=== PATIENT | male | born 1970 | race Caucasian/White ===

== ENCOUNTER 2020-05-17 14:25 | Outpatient (CLI) | payer OTHER, SELFPAY ==
--- NOTE | ~2020-05-17 | US_ITS ---
EXAMINATION: US soft tissue head and neck DATE: 05/17/2020 14:59 INDICATION: Dysphagia. TECHNIQUE: Multiple grayscale and Doppler ultrasound images of the left and right neck were obtained. COMPARISON: None FINDINGS: Right cemented the region there is a 2.4 x 3.7 x 3.4 cm mixed solid and cystic mass with central line ar hyperechoic region cyst with a central hilum within an enlarged necrotic lymph node. There is a se cond smaller hypoechoic right submandibular lymph node which measures 2.0 x 1.2 x 2.1 cm. There are f ew prominent but still normal-sized lymph nodes in the high right jugular chain and in the contralate ral left submandibular and high jugular chain. The largest left-sided lymph node measures 1.9 x 1.0 x 0.7 cm. IMPRESSION: 1. Bilateral cervical lymphadenopathy with largest partially necrotic appearing lymph node in the rig ht submandibular region measuring 2.7 x 3.4 x 2.4 cm. This could be related to either infection or me tastatic disease such as a squamous cell carcinoma. Would recommend contrast-enhanced neck CT and ult rasound-guided core needle biopsy of the largest right submandibular lymph node for further evaluatio n. Reviewed, dictated and finalized at location A. IMPRESSION: 1. Bilateral cervical lymphadenopathy with largest partially necrotic appearing lymph node in the right submandibular region measuring 2.7 x 3.4 x 2.4 cm. Thi s could be related to either infection or metastatic disease such as a squamous cell carcinoma. Would recommend contrast-enhanced neck CT and ultrasound-guide d core needle biopsy of the largest right submandibular lymph node for further evaluation.
[2020-05-17 14:41] LABS: Basophils Absolute Auto 0.06 K/mm3 (0.00-0.10); Basophils Percent Auto 0.8 % (0.0-1.0); Eosinophils Percent Auto 1.3 % (1.0-6.0); Hematocrit 43.9 % (40.0-54.0); Hemoglobin 14.4 g/dL (14.0-18.0); Immature Granulocyte Absolute 0.02 K/mm3 (0.00-0.00); Immature Granulocyte Percent A 0.3 % (0.0-0.0); Lymphocytes Absolute Auto 1.89 K/mm3 (1.10-4.50); Lymphocytes Percent Auto 24.5 % (18.0-42.0); Mean Corpuscular HGB Conc 32.8 g/dL (32.0-36.0); Mean Corpuscular Hemoglobin 31.8 pg (27.0-31.0); Mean Corpuscular Volume 96.9 fL (78.0-102.0); Mean Platelet Volume 8.8 fl (8.7-11.0); Monocytes Absolute Auto 0.55 K/mm3 (0.10-0.90); Monocytes Percent Auto 7.1 % (2.0-11.0); Neutrophils Absolute Auto 5.1 K/mm3 (1.7-7.2); Platelet Count Result 261 K/mm3 (150-420); Red Blood Count 4.53 M/mm3 (4.70-6.10); Red Cell Distribution Width 12.9 % (11.6-14.4); White Blood Count 7.7 K/mm3 (4.8-10.8)
[2020-05-17 15:55] LABS: Alanine Aminotransferase 44 U/L (16-63); Albumin Level 3.8 g/dL (3.4-5.0); Alkaline Phosphatase 75 U/L (46-116); Anion Gap 4 mmol/L (8-16); Aspartate Amino Transferase 25 U/L (15-37); Bilirubin,Total 0.4 mg/dL (0.00-1.00); Blood Urea Nitrogen 14 mg/dL (7-18); Calcium 8.7 mg/dL (8.5-10.1); Carbon Dioxide 31 mmol/L (21-32); Chloride 103 mmol/L (98-108); Estimated Glomerular Filt Rate > 60; Glucose 99 mg/dL (70-99); Osmolality Calculated 286 mOsm/kg (285-295); Potassium 4.4 mmol/L (3.5-5.1); Sodium 138 mmol/L (136-145); Total Protein 7.6 g/dL (6.4-8.2)
[2020-05-22 09:12] LABS: EBV Nuclear Ab Antibody <18.00 U/mL (<18.00); EBV Nuclear Ab Interpretation Recent; EBV Virus Capsid Ag IgM Ab <36.00 U/mL (<36.00)
== END 2020-05-17 14:26 | disposition home or self-care (01) ==
LOC: CHSLAB 14:29
PROVIDERS: PCP Nurse Practitioner Family; Visit Provider Nurse Practitioner Family
DX: R13.10 Dysphagia, unspecified (principal); R22.1 Localized swelling, mass and lump, neck
CPT/HCPCS: 36415; 76536; 80053; 85025; 86664; 86665

== ENCOUNTER 2020-05-22 09:05 | Outpatient (CLI) | payer OTHER, SELFPAY ==
--- NOTE | ~2020-05-22 | CT_ITS ---
EXAMINATION: CT soft tissue neck w con EXAM DATE: 05/22/2020 09:46 INDICATION: Dysphagia. Right-sided lump mass for one month. TECHNIQUE: Spiral CT of the neck was performed following intravenous injection of 75 mL Omnipaque 350 . Axial, coronal and sagittal images were reviewed. The dose-length product (DLP) for this examinat ion was 586.09 mGy-cm. The exposure was tailored according to patient size (auto mA exposure control ), and iterative reconstruction (ASIR) was used as additional dose reduction technique. There is no prior study for comparison. FINDINGS: The thyroid gland is unremarkable. The submandibular and parotid glands are symmetric. Complex cystic right-sided internal jugular chain mass, likely lymph node measuring 2.5 x 2.7 x 4.0 c m. This is pathologically enlarged and metastatic disease should be considered. Differential diagnosi s does include granulomatous process. No other cervical masses or enlarged lymph nodes are identified . The superior mediastinum is unremarkable. The airway is unremarkable. Parapharyngeal and pre-g lottic fat planes are preserved. The opacified vasculature is patent. The orbits are unremarkable . There is moderate right maxillary sinus mucoperiosteal thickening. There is right upper lobe gra nuloma. There is cervical spondylosis. IMPRESSION: 1. Pathologically enlarged cystic right level IIA lymph node; ENT consult recommended. 2. Moderate right maxillary sinus mucoperiosteal thickening. Reviewed, dictated and finalized at location B. IMPRESSION: 1. Pathologically enlarged cystic right level IIA lymph node; ENT consult recom mended. 2. Moderate right maxillary sinus mucoperiosteal thickening.
== END 2020-05-22 09:06 | disposition home or self-care (01) ==
LOC: CHSIMG 09:07
PROVIDERS: PCP Nurse Practitioner Family; Visit Provider Nurse Practitioner Family
DX: R22.1 Localized swelling, mass and lump, neck (principal); R13.10 Dysphagia, unspecified
CPT/HCPCS: 70491; Q9965

== ENCOUNTER 2020-05-24 13:28 | Outpatient (CLI) | payer OTHER, SELFPAY ==
--- NOTE | ~2020-05-24 | US_ITS ---
US FNA w image guidance DATE: 05/24/2020 14:47 INDICATION: Right neck mass TECHNIQUE: The purpose of the procedure, technique and potential competitions including bleeding were discussed with the patient. The patient verbalized understanding and gave consent. Timeout procedure confirmed proper patient and procedure. An approximately 2.2 by 4 cm complex mass was localized by ultrasound at the right neck area. The skin over this area was prepared with sterile Betadine solution. 1% lidocaine local anesthetic wa s administered to the skin and underlying subcutaneous tissues. An 18-gauge biopsy needle was introduced into the mass using ultrasound guidance and a small tissue c ore specimens were obtained. The patient refused any further biopsy attempts. No apparent complication was noted. IMPRESSION: Ultrasound-guided biopsy of right neck complex mass Patient allowed only one needle pass; multiple small tissue fragments were obtained from the initial biopsy attempt and were forwarded in liquid fixative to the laboratory. Reviewed, dictated and finalized at Location A. Reviewed, dictated and finalized at location A. IMPRESSION: Ultrasound-guided biopsy of right neck complex mass Patient allowed only one needle pass; multiple small tissue fragments were obta ined from the initial biopsy attempt and were forwarded in liquid fixative to [facility] laboratory.
== END 2020-05-24 13:29 | disposition home or self-care (01) ==
LOC: CHSIMG 13:29
PROVIDERS: PCP Nurse Practitioner Family; Visit Provider Nurse Practitioner Family
DX: R22.1 Localized swelling, mass and lump, neck (principal)
CPT/HCPCS: 10005; 88305

== ENCOUNTER 2022-08-14 21:03 | Emergency (ER) | payer OTHER, SELFPAY ==
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
[2022-08-14 21:07] VITALS: BP 146/86; PULSE 107; RESP 20; TEMP 36.3; O2SAT 10
--- NOTE | 2022-08-14 21:33 | ECG_ITS ---
Measurements Intervals [place] Rate: 89 P: 32 MI: 149 QRS: -1 QRSD: 91 T: 19 QT: 370 QTc: 452 Interpretive Statements SINUS RHYTHM MODERATE VOLTAGE CRITERIA FOR LVH, CONSIDER NORMAL VARIANT [MEETS CRITERIA IN ONE OF: R(aVL), S(V1), R(V5), R(V5/V6)+S(V1)] NO PREVIOUS ECG AVAILABLE FOR COMPARISON Electronically Signed On 08-15-2022 20:06:41 MEDICAL INFORMATION SPECIALIST by Rose Rubio M.D.
[2022-08-14] MEDS: ACETAMINOPHEN 325 MG TABLET 650 MG PO (21:56)
[2022-08-14 22:04] LABS: Basophils Absolute Auto 0.06 K/mm3 (0.00-0.10); Eosinophils Absolute Auto 0.14 K/mm3 (0.02-0.50); Eosinophils Percent Auto 2.3 % (1.0-6.0); Hematocrit 41.8 % (40.0-54.0); Immature Granulocyte Absolute 0.02 K/mm3 (0.00-0.00); Immature Granulocyte Percent A 0.3 % (0.0-0.0); Lymphocytes Absolute Auto 1.69 K/mm3 (1.10-4.50); Lymphocytes Percent Auto 27.3 % (18.0-42.0); Mean Corpuscular HGB Conc 33.5 g/dL (32.0-36.0); Mean Corpuscular Hemoglobin 31.7 pg (27.0-31.0); Mean Corpuscular Volume 94.8 fL (78.0-102.0); Mean Platelet Volume 9.1 fl (8.7-11.0); Monocytes Absolute Auto 0.56 K/mm3 (0.10-0.90); Neutrophils Absolute Auto 3.7 K/mm3 (1.7-7.2); Neutrophils Percent Auto 60.1 % (50.0-70.0); Platelet Count Result 259 K/mm3 (150-420); Red Blood Count 4.41 M/mm3 (4.70-6.10); Red Cell Distribution Width 13.4 % (11.6-14.4); White Blood Count 6.2 K/mm3 (4.8-10.8)
[2022-08-14 22:22] LABS: Alanine Aminotransferase 56 U/L (16-63); Albumin Level 3.6 g/dL (3.4-5.0); Alkaline Phosphatase 85 U/L (46-116); Anion Gap 6 mmol/L (8-16); Aspartate Amino Transferase 29 U/L (15-37); Bilirubin,Total 0.4 mg/dL (0.00-1.00); Blood Urea Nitrogen 19 mg/dL (7-18); Calcium 8.5 mg/dL (8.5-10.1); Carbon Dioxide 27 mmol/L (21-32); Chloride 105 mmol/L (98-108); Estimated CRCL calculation 86 ml/min; Estimated Glomerular Filt Rate > 60; Glucose 101 mg/dL (70-99); Osmolality Calculated 288 mOsm/kg (285-295); Potassium 3.9 mmol/L (3.5-5.1); Sodium 138 mmol/L (136-145); Total Protein 7.6 g/dL (6.4-8.2); Troponin I 7.2 ng/L (0.00-60.4)
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
== END 2022-08-14 22:44 | disposition left against medical advice (07) ==
PROVIDERS: Emergency Provider Emergency Medicine; PCP Family Medicine
DX: T14.90XA Injury, unspecified, initial encounter (principal); V49.9XXA Car occupant (driver) (passenger) injured in unspecified traffic accident, initial encounter; Z53.29 Procedure and treatment not carried out because of patient's decision for other reasons
CPT/HCPCS: 36415; 71045; 73110; 73610; 80053; 84484; 85025; 93005; 99199; 99284; A9270

== ENCOUNTER 2023-10-08 10:37 | Outpatient (CLI) | payer OTHER, SELFPAY ==
--- NOTE | ~2023-10-08 | XR_ITS ---
Right foot Technique: AP, oblique, and lateral views were obtained. Clinical History: Injury COMPARISON: 08/14/2022 Findings: No acute fracture or dislocation is seen. Prior ORIF of the calcaneus and distal tibia note d. Joint spaces are preserved without erosive or degenerative change. Soft tissues are unremarkable. Impression: No acute abnormality. Prior ORIF of the calcaneus and distal tibia. Reviewed, dictated and finalized at location M. SPACE MECHANIC Impression: No acute abnormality. Prior ORIF of the calcaneus and distal tibia.
== END 2023-10-08 10:38 | disposition home or self-care (01) ==
LOC: CHSIMG 10:38
PROVIDERS: PCP Nurse Practitioner Family; Visit Provider Nurse Practitioner Family
DX: S99.911A Unspecified injury of right ankle, initial encounter (principal); T84.498A Other mechanical complication of other internal orthopedic devices, implants and grafts, initial encounter
CPT/HCPCS: 73630

== ENCOUNTER 2024-01-29 09:15 | Outpatient (CLI) | payer MEDICARE, MEDICAID, SELFPAY ==
--- NOTE | ~2024-01-29 | US_ITS ---
EXAMINATION: US_VDOPREFBI_US DATE: 01/29/2024 10:51 INDICATION: Venous insufficiency, chronic, peripheral. TECHNIQUE: Grayscale ultrasound images without and with compression and Doppler ultrasound images of the bilateral lower extremity veins were obtained. COMPARISON: None. FINDINGS: The visualized portions of right common femoral vein, profunda (deep) femoral vein, femoral vein, pop liteal vein, peroneal veins, and posterior tibial veins are patent. Right greater saphenous vein abran ures 5 mm in the upper thigh, 3 mm in the lower thigh, and 2 mm in the the calf. No reflux. Right sma ll saphenous vein measures 2 mm in the upper calf and 2 mm in the lower calf. No reflux. The visualized portions of left common femoral vein, profunda femoral vein, femoral vein, popliteal v ein, peroneal veins, and posterior tibial veins are patent. Left greater saphenous vein measures 6 mm in the upper thigh, 4 mm in the lower thigh, and 3 mm in the calf. No reflux. Last small saphenous v ein measures 2 mm the upper calf and 2 mm in the lower calf. No reflux. IMPRESSION: 1. No deep venous thrombosis. 2. No reflux. Reviewed, dictated and finalized at location A.
== END 2024-01-29 09:16 | disposition home or self-care (01) ==
LOC: ANHIMG 09:18
PROVIDERS: PCP Nurse Practitioner Family; Visit Provider Orthopaedic Surgery
DX: I87.2 Venous insufficiency (chronic) (peripheral) (principal); R60.0 Localized edema
CPT/HCPCS: 93970

== ENCOUNTER 2024-03-23 13:41 | Emergency (ER) | payer MEDICARE, MEDICAID, SELFPAY ==
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
[2024-03-23 13:41] VITALS: BP 139/85; PULSE 90; RESP 18; TEMP 36.8; O2SAT 98
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
[2024-03-23 15:00] VITALS: BP 136/80; PULSE 80; RESP 18; O2SAT 99
== END 2024-03-23 15:00 | disposition home or self-care (01) ==
PROVIDERS: Emergency Provider Emergency Medicine; PCP Family Medicine
DX: S80.11XA Contusion of right lower leg, initial encounter (principal); V86.56XA Driver of dirt bike or motor/cross bike injured in nontraffic accident, initial encounter
CPT/HCPCS: 73590; 99283

== ENCOUNTER 2024-09-04 02:32 | Emergency (ER) | payer MEDICARE, MEDICAID, SELFPAY ==
[2024-09-04] VITALS (13 sets, daily range): BP systolic 124–145; BP diastolic 82–116; PULSE 90–103; RESP 14–22; TEMP 36.1; O2SAT 94–97
--- NOTE | ~2024-09-04 | XR_ITS ---
XR chest 1V portable DATE: 09/04/2024 02:42 INDICATION: Sternal chest pain TECHNIQUE: Portable upright AP chest 09/04/2024 at 0241 hours COMPARISON: 08/14/2022 portable AP chest at 2154 hours FINDINGS: Heart size is within normal range. There is mild pulmonary vascular congestion and redistri bution. There are mild infiltrates in the mid and to a greater extent lower lung zones, left greater than rig ht. Definitive diagnosis with infiltrates includes pulmonary edema, pneumonia, aspiration pneumonitis . Slight pleural effusions may be present. No pneumothorax. IMPRESSION: Pulmonary vascular congestion and mild bilateral mid and primarily lower lung infiltrates ; differential diagnosis for the infiltrates includes pulmonary edema, pneumonia, less likely aspirat ion pneumonitis Reviewed, dictated and finalized at location [facility]. NESS UNIT CONTROLLER IMPRESSION: Pulmonary vascular congestion and mild bilateral mid and primarily lower lung infiltrates; differential diagnosis for the infiltrates includes pul monary edema, pneumonia, less likely aspiration pneumonitis
--- NOTE | ~2024-09-04 | CT_ITS ---
EXAMINATION: CTA chest abdomen pelvis DATE: 09/04/2024 03:34 INDICATION: Epigastric pain. Sternal chest pain. Rule out dissection. TECHNIQUE: Computed tomographic angiography (CTA) of the head was performed without and with 100 mL O mnipaque-350 intravenous contrast. Exam dose: 1017.99 mGy-cm total exam DLP. Volume-rendered and m aximum intensity projection 3D reconstructions of the intracranial arteries were created by the techn ologist on a separate workstation. COMPARISON: None. FINDINGS: No thoracic aortic or abdominal aortic aneurysm or dissection. No evidence of pulmonary embolism. There are calcified hilar mediastinal lymph nodes calcified pulmonary granulomas bilaterally, consist ent with old granulomatous disease. Heart size is within normal range. Coronary artery calcifications. No pericardial or pleural effusion . There is mild atelectasis primarily at the lung bases. No pulmonary consolidation or suspicious pulmo nary mass lesion is evident. Hepatic steatosis. No hepatic, splenic, pancreatic, adrenal or renal space occupying mass lesion is d etected. The gallbladder is contracted. No gallbladder wall thickening or pericholecystic fluid or fat strandi ng or bile duct or pancreatic duct dilatation is noted. No urinary tract calculus or hydroureteronephrosis. The urinary bladder is unremarkable. There is mild prostate calcification, mild prostate enlargement. The urinary bladder is unremarkable. Normal appendix. Minimal sigmoid colon diverticulosis; no CT evidence of diverticulitis. No bowel obstruction, bowel wall thickening, pneumatosis or intraperitoneal free air is detected. Small fat-containing umbilical hernia. Prominent degenerative disease in the lower cervical spine. There is degenerative spurring of the tho racic spine. There is severe degenerative disc disease at L5-S1 with associated mild retrolisthesis. No suspicious osteolytic or osteoblastic lesions are noted. Hardware including intramedullary nail and interlocking proximal through screw of proximal right femu r. IMPRESSION: No evidence of thoracic or abdominal aortic aneurysm or dissection Normal appendix Minimal left colon diverticulosis Reviewed, dictated and finalized at [facility]. Reviewed, dictated and finalized at location [facility]. ONNEL DIRECTOR
--- NOTE | 2024-09-04 02:33 | ECG_ITS ---
Test Date: 2024-09-04 02:34:27 Measurements Intervals [place] Rate: 105 P: 44 MS: 153 QRS: 5 QRSD: 78 T: 60 QT: 328 QTc: 435 Interpretive Statements SINUS TACHYCARDIA NONSPECIFIC ST AND T-WAVE ABNORMALITY No previous ECG available for comparison Electronically Signed On 09-07-2024 17:39:54 MANAGER HEMATOLOGY by Keith Hicks M.D.
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
[2024-09-04] MEDS: MAG HYDROX/ALUMINUM HYD/SIMETH 30 ML, PHENobarb/HYOSCY/ATROPINE/SCOP 32.4 MG, LIDOCAINE... PO (02:42)
[2024-09-04 02:45] LABS: Basophils Absolute Auto 0.06 K/mm3 (0.00-0.10); Basophils Percent Auto 0.5 % (0.0-1.0); Eosinophils Absolute Auto 0.11 K/mm3 (0.02-0.50); Eosinophils Percent Auto 0.9 % (1.0-6.0); Hematocrit 46.8 % (40.0-54.0); Immature Granulocyte Absolute 0.04 K/mm3 (0.00-0.00); Immature Granulocyte Percent A 0.3 % (0.0-0.0); Lymphocytes Absolute Auto 2.29 K/mm3 (1.10-4.50); Lymphocytes Percent Auto 19.5 % (18.0-42.0); Mean Corpuscular HGB Conc 32.1 g/dL (32-36); Mean Corpuscular Hemoglobin 30.1 pg (27.0-31.0); Mean Platelet Volume 8.9 fl (8.7-11.0); Monocytes Absolute Auto 0.91 K/mm3 (0.10-0.90); Monocytes Percent Auto 7.7 % (2.0-11.0); Neutrophils Absolute Auto 8.36 K/mm3 (1.70-7.20); Neutrophils Percent Auto 71.1 % (50.0-70.0); Platelet Count Result 274 K/mm3 (150-420); Red Blood Count 4.98 M/mm3 (4.70-6.10); Red Cell Distribution Width 13.5 % (11.6-14.4); White Blood Count 11.8 K/mm3 (4.8-10.8)
[2024-09-04] MEDS: MORPHINE SULFATE (*CRX) 4 MG/ML INJ IV PUSH (03:00)
[2024-09-04 03:07] LABS: Alanine Aminotransferase 58 U/L (16-63); Albumin Level 3.7 g/dL (3.4-5.0); Alkaline Phosphatase 116 U/L (46-116); Anion Gap 4 mmol/L (4-12); Aspartate Amino Transferase 47 U/L (15-37); Bilirubin,Total 0.6 mg/dL (0.00-1.00); Blood Urea Nitrogen 13 mg/dL (7-18); Calcium 9.1 mg/dL (8.5-10.1); Carbon Dioxide 31 mmol/L (21-32); Chloride 102 mmol/L (98-108); Estimated CRCL calculation 87 ml/min; Estimated Glomerular Filt Rate > 60; Glucose 103 mg/dL (70-99); Lipase 54 U/L (16-77); Osmolality Calculated 284 mOsm/kg (285-295); Sodium 137 mmol/L (136-145); Total Protein 8.4 g/dL (6.4-8.2); Troponin I 5.3 ng/L (0.00-60.4)
[2024-09-04 03:08] LABS: NT Pro B Type Natriuretic Pept < 11 pg/mL (0-125)
[2024-09-04] MEDS: HYDROmorphone HCL INJ (*CRX) 2 MG/ML VIAL 0.5 MG IV PUSH (03:55)
[2024-09-04 05:22] LABS: Potassium 5.7 mmol/L (3.5-5.1)
--- OUTSIDE RECORDS SUMMARY | 2024-09-11 03:18 | XMS_ITS | Encounter Summary ---
Author Organization [facility] Address [address] [place] [address]. [place], [place] [id number] [place] [id number] Care Team Providers Care Pharmaceutical Botanist Name Role Phone None, Provider Primary Care Provider Unavaila ble Encounter Details Date Type Department Care Team (Latest Contact Info) Description 03/28/2020 Travel Social History Tobacco Use Types Packs/Day Years Used Date Smoking Tobacco: Never Smokeless Tobacco: Former Alcohol Use Standard Drinks/Week Comments Yes 0 (1 standard drink = 0.6 oz pur e alcohol) occasionally Sex and Gender Information Value Date Recorded Sex Assigned at Not on file Legal Sex Male 10:57 PM CDT Gender Identity Not on file Sexual Orientation Not on file COVID-19 Exposure Response Date Recorded In the last month, have you been in contact with someone who was confirmed or suspected to have Coronavirus / COVID-19? No / Unsure 03/28/2020 10:57 PM CDT documented as of this encounter Plan of Treatment Not on file documented as of this encounter Visit Diagnoses Not on filedocumented in this encounter Care Teams Pharmaceutical Botanist Relationship Specialty Start Date End Date None, Provider, PCP - General 03/28/20 documented as of this encounter
--- OUTSIDE RECORDS SUMMARY | 2024-09-11 03:18 | XMS_ITS | Clinical Summary ---
Author Organization [facility] Address [address] [place] [address]. [place], [place] [id number] [place] [id number] Care Team Providers Care Metal Hanging Supervisor Name Role Phone None, Provider MD Primary Care Provider Unavaila ble Allergies No known active allergies Medications No known medications Social History Tobacco Use Types Packs/Day Years Used Date Smoking Tobacco: Never Smokeless Tobacco: Former Alcohol Use Standard Drinks/Week Comments Yes 0 (1 standard drink = 0.6 oz pur e alcohol) occasionally Sex and Gender Information Value Date Recorded Sex Assigned at Not on file Legal Sex Male 10:57 PM CDT Gender Identity Not on file Sexual Orientation Not on file Last Filed Vital Signs Vital Sign Reading Time Taken Comments Blood Pressure 129/84 03/28/2020 11:03 PM CDT Pulse 98 03/28/2020 11:03 PM CDT Temperature 37.1 ??C (98.8 ??F) 03/28/2020 11:03 PM C DT Respiratory Rate 20 03/28/2020 11:03 PM CDT Oxygen Saturation 97% 03/28/2020 11:03 PM CDT Inhaled Oxygen Concentration - - Weight 83.9 kg (185 lb) 03/28/2020 11:03 PM CDT Height 177.8 cm (5' 10 ) 03/28/2020 11:03 PM CDT Body Mass Index 26.54 03/28/2020 11:03 PM CDT Plan of Treatment Health Maintenance Due Date Last Done Comments Colorectal Cancer Screening Colonoscopy (10 Years) 1972 Annual Physical 1975 Hepatitis C 1990 DTaP, Tdap and Td Vaccines ( 1 - Tdap) 1991 Hepatitis B Vaccines (1 of 3 - 19+ 3-dose series) 1991 Zoster Vaccines (1 of 2) 2022 COVID-19 Vaccine (1 - 2023-2 5 season) 2024 Influenza Adult (#1) 2024 Meningococcal Vaccine Aged Out No scott giovana eligible based on patient's age to complete this topic Pneumococcal Vaccine: Pediat rics (0 to 5 Years) and At-Risk Patients (6 to 64 Years) Aged Out No longer eligible b ased on patient's age to complete this topic RSV Immunizations Under 20 Months Aged Out No longer eligible based on patient's age to complete this topic Insurance [facility] Care Teams Metal Hanging Supervisor Relationship Specialty Start Date End Date None, Provider, PCP - General 03/28/20
--- OUTSIDE RECORDS SUMMARY | 2024-09-11 03:18 | XMS_ITS | Encounter Summary ---
Author Organization [facility] Address [address] [place] [address]. [place], [place] [id number] [place] [id number] Care Team Providers Care Engraver Apprentice Decorative Name Role Phone None, Provider Primary Care Provider Unavaila ble Reason for Visit * Reason Comments STD Screening Encounter Details Date Type Department Care Team (Late st Contact Info) Description 03/28/2020 10:59 PM CDT - 03/29/2020 12:11 AM CDT Emergency [facility] Emergency Room [id number] [place] [address] Fco Michael MD STD Screening Discharge Disposition: Home or Self Care (Routine Discharge) Social History Tobacco Use Types Packs/Day Years [...] PM CDT documented as of this encounter Last Filed Vital Signs Vital Sign Reading [...] Mass Index 26.54 03/28/2020 11:03 PM CDT documented in this encounter Discharge Instructions * Discharge Instructions* Fco Michael MD - 03/28/2020 11:32 PM CDT You are being treated presumptively for gonorrhea and chlamydia. Follow-up with the test results toensure that you are not still caring infection or if there was any evidence of infection on your initial screening. Use a condom to reduce the risk of transmitting or jeramie a sexually transmitted disease. You have not been screened nor evaluated for HIV. Follow-up with your primary care doctor for further treatment and evaluation as needed. Return immediately to the emergency room for any new or worsening symptoms. * Attachments The following attachments cannot be sent through Care Everywhere. * Screening for Sexually Transmitted Infections (Cambodian) * Sexually-Transmitted Diseases (Cambodian) documented in this encounter ED Notes * Fco Michael MD - 03/28/2020 11:23 PM CDT Chief Complaint Chief Complaint Patient presents with ??? STD Screening History of Present Illness Patient is a 50-year-old white male with concerned that he has an asymptomatic STD as his significant other was tested and found to be positive ( as per patient ) for GC or chlamydia although he is not certain of the details. The patient reports that his girlfriend expressed that she must have gotten it from him because she has not been with anybody else and she became symptomatic. He would like to be tested and treated presumptively. Risks and benefits were explained. He has no lesions and no pain and no dysuria. Medical History ALLERGIES: No Known Allergies MEDICATIONS: Prior to Admission medications Not on File PAST MEDICAL HISTORY: Past Medical History: Diagnosis Date ??? Peptic ulcer PAST SURGICAL HISTORY: History reviewed. No pertinent surgical history. FAMILY HISTORY: No family history on file. SOCIAL HISTORY: Social History Tobacco Use ??? Smoking status: Never Smoker ??? Smokeless tobacco: Former User Substance Use Topics ??? Alcohol use: Yes Comment: occasionally ??? Drug use: Never Review of Systems Review of Systems All other systems reviewed and are negative. Physical Exam Filed Vitals: 03/28/20 2303 BP: 129/84 Pulse: 98 Resp: 20 Temp: 98.8 ??F (37.1 ??C) TempSrc: Temporal SpO2: 97% Weight: 83.9 kg (185 lb) Height: 5' 10 (1.778 m) Physical Exam Constitutional: He is oriented to person, place, and time. He appears well- developed and well-nourished. HENT: Head: Normocephalic and atraumatic. Mouth/Throat: Oropharynx is clear and moist. Eyes: Conjunctivae and EOM are normal. Neck: Normal range of motion. Neck supple. Cardiovascular: Normal rate, regular rhythm and normal heart sounds. Pulmonary/Chest: Effort normal. Abdominal: Soft. Bowel sounds are normal. Genitourinary: Genitourinary Comments: Exam deferred at the request of the patient reports no abnormal physical findings or symptoms Musculoskeletal: Normal range of motion. Neurological: He is alert and oriented to person, place, and time. Skin: Skin is warm. Capillary refill takes less than 2 seconds. Psychiatric: He has a normal mood and affect. His behavior is normal. Judgment and thought content normal. Diagnostic Studies / Procedures ELECTROCARDIOGRAMS: No results found for this visit on 03/28/20. LABORATORY STUDIES: No results found for this visit on 03/28/20. IMAGING STUDIES No orders to display ED Course / Medical Decision Making Presumed asymptomatic STD. Request presumptive treatment. Education was given with respect to following up is laboratory cultures with respect to safer sex practices. Clinical Impression Possible exposure to STD (Primary) Disposition: Discharge Foc Michael MD 03/29/20 0442 * Fco Michael MD - 03/28/2020 11:19 PM CDT Chief Complaint Chief Complaint Patient presents with ??? STD Screening History of Present Illness [id number] concern for possible STD exposure Medical History ALLERGIES: No Known Allergies MEDICATIONS: Prior to Admission medications Not on File PAST MEDICAL HISTORY: Past Medical History: Diagnosis Date ??? Peptic ulcer PAST SURGICAL HISTORY: History reviewed. No pertinent surgical history. FAMILY HISTORY: No family history on file. SOCIAL HISTORY: Social History Tobacco Use ??? Smoking status: Never Smoker ??? Smokeless tobacco: Former User Substance Use Topics ??? Alcohol use: Yes Comment: occasionally ??? Drug use: Never Review of Systems Review of Systems Physical Exam Filed Vitals: 03/28/20 2303 BP: 129/84 Pulse: 98 Resp: 20 Temp: 98.8 ??F (37.1 ??C) TempSrc: Temporal SpO2: 97% Weight: 83.9 kg (185 lb) Height: 5' 10 (1.778 m) Physical Exam Diagnostic Studies / Procedures ELECTROCARDIOGRAMS: No results found for this visit on 03/28/20. LABORATORY STUDIES: No results found for this visit on 03/28/20. IMAGING STUDIES No orders to display ED Course / Medical Decision Making Clinical Impression None Disposition: Data Unavailable Fco Michael MD 03/29/20 0447 * Lindsey Donaldson RN - 03/28/2020 11:01 PM CDT Pt to ED with c/o poss STD. Pt states that he had a partner that was in here today that was checkedout and she told him that he needed to come in and get checked out as well. documented in this encounter Plan of Treatment Not on file documented as of this encounter Procedures Procedure Name Priority Date/Time Associated Diagnosis Comments CHLAMYDIA AND GC RNA TMA STAT 03/29/2020 1:11 AM CDT documented in this encounter Results * CHLAMYDIA AND GC RNA TMA (03/29/2020 1:11 AM CDT) CHLAMYDIA TRACHOMATIS RNA TMA Not Detected Not Detected 04/01/2020 6:53 PM CDT [facility] KOROMA N.GONORRHOEAE RNA TMA (QST) Not Detected Not Detected 04/01/2020 6:53 PM CDT [facility] KOROMA Comment: Methodology: [employer] Diver Mediated Amplification(TMA) ?to detect RNA. The analytical performance characteristics of this assay, when used to test [facility] specimens have been determined by [facility]. The modifications have not been cleared or approved by the FDA. This assay has been validated pursuant to the CLIA regulations and is used for clinical purposes. For additional information, please refer to https://education.[employer]/faq/UII864 (This link is being provided for information/educational purposes only). Test Performed by [facility], [facility], [address] [place], [place] Moustapha Terrazas M.D., Ph.D., Director of Laboratories , CLIA [id number] URINE SPECIMEN / Unknown 03/29/2020 1:11 AM CDT Fco Michael MD MICROBIOLOGY - GENERAL ORDERA BLES Final Result [facility] [address] [place] [address], documented in this encounter Visit Diagnoses Diagnosis Possible exposure to STD- Primary Other specified personal history presenting hazards to health documented in this encounter Administered Medications Inactive Administered Medications - up to 3 most recent administrations Medication Order MAR Action Action Date Dose Rate Site azithromycin (ZITHROMAX) tablet 500 mg 500 mg, Oral, Once, 1 dose, On Fri03/28/20 at 2330 Given 03/28/2020 11:57 PM CDT 500 mg cefTRIAXone (ROCEPHIN) 250 mg in lidocaine (PF) (XYLOCAINE) 1 % IM syringe 250 mg, Intramuscular, Once, 1 dose, On Fri03/28/20 at 233, Reconstitute with 0.9 mL normal saline, sterile water for injection, or 1% lidocaine to obtain a final concentration of 250 mg/mL. Given 03/28/2020 11:57 PM CDT 250 mg Left Deltoid documented in this encounter Active and Recently Administered Medications Times are shown in CDT. Scheduled Medication Order 03/27/2020 03/28/2020 03/29/2020 azithromycin (ZITHROMAX) tablet 500 mg (COMPLETED) 500 mg, Oral, Once, 1 dose, On Fri03/28/20 at 2330 9242 (Given - Provider: Lindsey Donaldson RN) cefTRIAXone (ROCEPHIN) 250 mg in lidocaine (PF) (XYLOCAINE) 1 % IM syringe (COMPLETED) 250 mg, Intramuscular, Once, 1 dose, On Fri03/28/20 at 2330, Reconstitute with 0.9 mL normal saline, sterile water for injection, or 1% lidocaine to obtain a final concentration of 250 mg/mL. 5103 (Given - Provider: Lindsey Donaldson RN) documented in this encounter Care Teams Engraver Apprentice Decorative Relationship Specialty Start Date End Date None, Provider, PCP - General 03/28/20 documented as of this encounter
--- OUTSIDE RECORDS SUMMARY | 2024-09-11 03:19 | XMS_ITS | Encounter Summary ---
Author Organization [facility] Address [address] [place] [address] Care Team Providers Care Asset Protection Specialist Name Role Phone No, Physician Unavailable No, Physician Primary Care Provider [phone] Reason for Referral * Diagnostic Imaging (Routine) - Closed Specialty Diagnoses / Procedures Referred By Contac t Referred To Contact Diagnoses Open displaced fracture of body of right calcaneus with routine healing, subsequent encounter Procedures XR Calcaneus Right 2 or More Views No Thomas MD Phone: tel: [facility] Referral ID Status Reason Start Date Expiration Date Visits Re quested Visits Authorized [id number] Closed 10/23/2021 11/22/2022 1 1 [employer]OR BIOIN[employer] * Diagnostic Imaging (Routine) - Closed Specialty Diagnoses / Procedures Referred By Contac t Referred To Contact Diagnoses Pilon fracture of right tibia, closed, initial encounter Procedures XR Tibia Fibula Right 2 Views No Thomas MD Phone: tel: [facility] Referral ID Status Reason Start Date Expiration Date Visits Re quested Visits Authorized [id number] Closed 10/23/2021 11/22/2022 1 1 [employer] Reason for Visit * Diagnostic Imaging (Routine) - Closed Specialty Diagnoses / Procedures Referred By Contac t Referred To Contact Diagnoses Pilon fracture of right tibia, closed, initial encounter Procedures XR Tibia Fibula Right 2 Views No Thomas MD Phone: tel: [facility] Referral ID Status Reason Start Date Expiration Date Visits Re quested Visits Authorized [id number] Closed 10/23/2021 11/22/2022 1 1 Encounter Details Date Type Department Care Team (Latest Contact Info) Description 10/24/2021 1:42 PM DIRECTOR BIOINFORMATICS - 10/24/2021 11:59 PM DIRECTOR BIOINFORMATICS Hospital Encounter [facility] [address] [place] [address] No Thomas MD [address] [place] [address] Pilon fracture of right tibia, closed, initial encounter; Open displaced fracture of body of right calcaneus with routine healing, subsequent encounter Discharge Disposition: Discharge to home or self care Social History Tobacco Use Types Packs/Day Years Used Date Smoking Tobacco: Never Smokeless Tobacco: Never Alcohol Use Standard Drinks/Week Comments Yes 0 (1 standard drink = 0.6 oz pur e alcohol) AUDIT-C Answer Date Recorded Q1: How often do you have a drink containing alcohol? 4 or more times a week 01/12/2021 Q2: How many drinks containi ng alcohol do you have on a typical day when you are drinking? 1 or 2 Q3: How often do you have si x or more drinks on one occasion? Never 01/12/2021 Sex and Gender Information Value Date Recorded Sex Assigned at Not on file Legal Sex Male 11:16 AM DIRECTOR BIOINFORMATICS Gender Identity Not on file Sexual Orientation Not on file documented as of this encounter Discharge Disposition Disposition Code Departure Means Destination Discharge to home or self care documented in this encounter Plan of Treatment Not on file documented as of this encounter Procedures Procedure Name Priority Date/Time Associated Diagnosis Comments XR CALCANEUS RIGHT 2 OR MORE VIEWS Routine 10/24/2021 1:59 PM DIRECTOR BIOINFORMATICS Open displaced fracture of body of right calcaneus with routine healing, subsequent encounter XR TIBIA FIBULA RIGHT2 VIEWS Routine 10/24/2021 1:59 PM DIRECTOR BIOINFORMATICS Pilon fracture of right tibia, closed, initial encounter documented in this encounter Results * XR Calcaneus Right 2 or More Views (10/24/2021 1:59 PM DIRECTOR BIOINFORMATICS) Anatomical Region Laterality Modality Lower Extremities, Foot Right Computed Radiography 10/24/2021 2:05 PM DIRECTOR BIOINFORMATICS Impressions 10/24/2021 2:05 PM DIRECTOR BIOINFORMATICS Unchanged healing internally fixated distal right tibial and comminuted right calcaneal fractures. Electronically signed by: Papi Kay M.D. Narrative 10/24/2021 2:05 PM DIRECTOR BIOINFORMATICS XR TIBIA FIBULA RIGHT2 VIEWS, XR CALCANEUS RIGHT 2 OR MORE VIEWS HISTORY: ??Distal right tibia and calcaneus fractures. FINDINGS: ??2 views each of the right tibia and fibula and right calcaneus are obtained and compared with 04/25/2021. Right tibia and fibula: There is healed, reduced and internally fixated distal tibial fracture with lateral plate and screw construct. Alignment is unchanged. Hardware is intact. The soft tissues are normal. Right calcaneus: There is healing, reduced and internally fixated comminuted right calcaneus fracture with multiple plates and screws. Hardware is intact. Alignment is unchanged. The soft tissues are normal. There is an unchanged dorsal Achilles enthesophyte. Procedure Note Papi Kay MD - 10/24/2021 XR TIBIA FIBULA RIGHT2 VIEWS, XR CALCANEUS RIGHT 2 OR MORE VIEWS HISTORY: Distal right tibia and calcaneus fractures. FINDINGS: 2 views each of the right tibia and fibula and right calcaneus are obtained and compared with 04/25/2021. Right tibia and fibula: There is healed, reduced and internally fixated distal tibial fracture with lateral plate and screw construct. Alignment is unchanged. Hardware is intact. The soft tissues are normal. Right calcaneus: There is healing, reduced and internally fixated comminuted right calcaneus fracture with multiple plates and screws. Hardware is intact. Alignment is unchanged. The soft tissues are normal. There is an unchanged dorsal Achilles enthesophyte. IMPRESSION: Unchanged healing internally fixated distal right tibial and comminuted right calcaneal fractures. Electronically signed by: Papi Kay M.D. us No Thomas MD IMG XR PROCEDURES Final Resu lt * XR Tibia Fibula Right 2 Views (10/24/2021 1:59 PM DIRECTOR BIOINFORMATICS) Anatomical Region Laterality Modality Lower Extremities, Lower Leg Right Com puted Radiography 10/24/2021 2:05 PM DIRECTOR BIOINFORMATICS Impressions 10/24/2021 2:05 PM DIRECTOR BIOINFORMATICS Unchanged healing internally fixated distal right tibial and comminuted right calcaneal fractures. Electronically signed by: Papi Kay M.D. Narrative 10/24/2021 2:05 PM DIRECTOR BIOINFORMATICS XR TIBIA FIBULA RIGHT2 VIEWS, XR CALCANEUS RIGHT 2 OR MORE VIEWS HISTORY: ??Distal right tibia and calcaneus fractures. FINDINGS: ??2 views each of the right tibia and fibula and right calcaneus are obtained and compared with 04/25/2021. Right tibia and fibula: There is healed, reduced and internally fixated distal tibial fracture with lateral plate and screw construct. Alignment is unchanged. Hardware is intact. The soft tissues are normal. Right calcaneus: There is healing, reduced and internally fixated comminuted right calcaneus fracture with multiple plates and screws. Hardware is intact. Alignment is unchanged. The soft tissues are normal. There is an unchanged dorsal Achilles enthesophyte. Procedure Note Papi Kay MD - 10/24/2021 XR TIBIA FIBULA RIGHT2 VIEWS, XR CALCANEUS RIGHT 2 OR MORE VIEWS HISTORY: Distal right tibia and calcaneus fractures. FINDINGS: 2 views each of the right tibia and fibula and right calcaneus are obtained and compared with 04/25/2021. Right tibia and fibula: There is healed, reduced and internally fixated distal tibial fracture with lateral plate and screw construct. Alignment is unchanged. Hardware is intact. The soft tissues are normal. Right calcaneus: There is healing, reduced and internally fixated comminuted right calcaneus fracture with multiple plates and screws. Hardware is intact. Alignment is unchanged. The soft tissues are normal. There is an unchanged dorsal Achilles enthesophyte. IMPRESSION: Unchanged healing internally fixated distal right tibial and comminuted right calcaneal fractures. Electronically signed by: Papi Kay M.D. us No Thomas MD IMG XR PROCEDURES Final Resu lt documented in this encounter Visit Diagnoses Diagnosis Pilon fracture of right tibia, closed, initial encounter Open displaced fracture of body of right calcaneus with routine healing, subsequent encounter documented in this encounter Care Teams Asset Protection Specialist Relationship Specialty Start Date End Date No, Physician PCP - General 02/28/21 No, Physician 12/09/20 documented as of this encounter
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
--- OUTSIDE RECORDS SUMMARY | 2024-09-11 03:19 | XMS_ITS | Encounter Summary ---
Author Organization [facility] Address [address] [place] [address] Phone Care Team Providers Care Security Operations Analyst Name Role Phone No, Physician Unavailable No, Physician Primary Care Provider [phone] Reason for Visit * Reason Comments Follow-up Follow-up Follow-up Encounter Details Date Type Department Care Team (Late st Contact Info) Description 11/14/2021 8:45 AM CDT Office Visit [facility] Orthopaedic Surgery [address] 6th [place] [address] [place] [address] No Thomas MD [address] [place] [address] Open displaced fracture of body of right calcaneus with routine healing, subsequent encounter (Primary Dx) Social History Tobacco Use Types Packs/Day Years [...] on file 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 The ankle joint appears intact and normal. 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 I went over this with him in detail. I discussed with him that due to the fact that he does have some extensive sclerosis in his calcaneus as unclear if he would heal a subtalar fusion, although I do feel that this would give him the best pain relief. I recommended that he get a subtalar injection at this time to see if this helps with his pain, but he would prefer to avoid needles if possible. At this time he will continueto wear supportive shoe wear including the rubber soled boots that he has. I also recommended a lace-up ankle brace as this may help some with his subtalar motion and helping with his pain. I discussed with him that he should return or call us at any time if he would like to proceed with injection.I spent 20 minutes on this patient's care, more than half of which was spent in [id number] encounter with the patient performing counseling/coordination of care as discussed above. documented in this encounter Plan of Treatment Not on file documented as of this encounter Visit Diagnoses Diagnosis Open displaced fracture of body of right calcaneus with routine healing, subsequent encounter- Primary documented in this encounter Care Teams Security Operations Analyst Relationship Specialty Start Date End Date No, Physician PCP - General 02/28/21 No, Physician 12/09/20 documented as of this encounter
--- OUTSIDE RECORDS SUMMARY | 2024-09-11 03:19 | XMS_ITS | Encounter Summary ---
Author Organization [facility] Address [address] [place] [address] Phone Care Team Providers Care Kitchen Clerk Name Role Phone No, Physician Unavailable No, Physician Primary Care Provider [phone] Encounter Details Date Type Department Care Team (Late st Contact Info) Description 04/25/2021 Orders Only [facility] Orthopaedic Surgery [address] [facility] [facility] [address] 6th [place] [address] [place] [address] No Thomas MD [address] [place] [address] Concussion, mental confusion or disorientation no loss conscious, subsequent encounter (Primary Dx) Social History Tobacco [...] on file 

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
--- OUTSIDE RECORDS SUMMARY | 2024-09-11 03:19 | XMS_ITS | Encounter Summary ---
Author Organization [facility] Address [address] [place] [address] Phone Care Team Providers Care Banquet Attendant Name Role Phone No, Physician Unavailable No, Physician Primary Care Provider [phone] Reason for Referral * Diagnostic Imaging (Routine) - Closed Specialty Diagnoses / Procedures Referred By Contac t Referred To Contact Diagnoses Pilon fracture of right tibia, closed, initial encounter Procedures XR Tibia Fibula Right 2 Views No Thomas MD Phone: tel: [facility] Referral ID Status Reason Start Date Expiration Date Visits Re quested Visits Authorized [id number] Closed 10/23/2021 11/22/2022 1 1 DATA ADMIN * Diagnostic Imaging (Routine) - Closed Specialty Diagnoses / Procedures Referred By Contteagan t Referred To Contact Diagnoses Open displaced fracture of body of right calcaneus with routine healing, subsequent encounter Procedures XR Calcaneus Right 2 or More Views No Thomas MD Phone: tel: [facility] Referral ID Status Reason Start Date Expiration Date Visits Re quested Visits Authorized [id number] Closed 10/23/2021 11/22/2022 1 1 DATA ADMIN Reason for Visit * Reason Comments Follow-up Follow-up Encounter Details Date Type Department Care Team (Late st Contact Info) Description 10/24/2021 1:45 PM BIG DATA ADMIN Office Visit [facility] Orthopaedic Surgery [address] [address] [facility] 6th [place] [address] [place] [address] No Thomas MD [address] [place] [address] Open displaced fracture of body of right calcaneus with routine healing, subsequent encounter (Primary Dx); Pilon fracture of right tibia, closed, initial encounter Social History Tobacco Use Types Packs/Day Years [...] on file 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 Denies fevers, chills, wound redness or drainage. Pain: mild. Objective: Well-developed, well-nourished, in no acute distress. Alert and oriented x 3. Normal respirations, no dyspnea with speaking. The injured extremity shows: normal stability, strength, sensation Imaging Caclaneus and distal tibia fracture healing well in proper alignment. Broken screws in sinus tarsi plate new since last visit. I independently reviewed and interpreted this xray and the patient's prior xrays. Assessment: Mr. Deluna is a 51 y.o. male who sustained a right side calcaneus and distal tibia fracture with operative management 11/2020. Plan: 1) Continue weight bearing as tolerated, activity as tolerated. CT to further evaluate calcaneus. 2) Return to clinic as needed with any other concerns. 3) Pt no longer taking narcotic pain medication, continue tylenol as needed. 4) Call with any questions. 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 Electronically signed by: Papi Kay M.D. Narrative 10/24/2021 2:05 PM BIG DATA ADMIN XR TIBIA FIBULA RIGHT2 VIEWS, XR CALCANEUS [...] XR PROCEDURES Final Resu lt * XR Calcaneus Right 2 or More Views (10/24/2021 1:59 PM BIG DATA ADMIN) Anatomical Region Laterality Modality Lower Extremities, Foot Right Computed Radiography 10/24/2021 2:05 PM BIG DATA ADMIN Impressions 10/24/2021 2:05 PM BIG DATA ADMIN Unchanged healing internally fixated distal right tibial and comminuted right calcaneal fractures. Electronically signed by: Papi Kay M.D. Narrative 10/24/2021 2:05 PM BIG DATA ADMIN XR TIBIA FIBULA RIGHT2 VIEWS, XR CALCANEUS [...] fractures. Electronically signed by: Papi Kay M.D. No Thomas MD IMG XR PROCEDURES Final Resu lt documented in this encounter Visit Diagnoses Diagnosis Open displaced fracture of body of right calcaneus with routine healing, subsequent encounter- Primary Pilon fracture of right tibia, closed, initial encounter Pilon fracture of right tibia, closed, initial encounter Open displaced fracture of body of right calcaneus with routine healing, subsequent encounter documented in this encounter Discontinued Medications Medication Sig Discontinue Reason Start Date End Da te gabapentin (NEURONTIN) 300 mg capsule Take 1 capsule (300 mg total) by mouth 2 (two) times a day Therapy completed 12/25/2020 10/24/2021 meloxicam (MOBIC) 15 mg tablet TAKE 1 TABLET BY MOUTH EVERY DAY 07/16/2021 10/24/2021 prednisoLONE acetate (PRED FORTE) 1 % ophthalmic suspension Administer 1 drop into the left eye 4 (four) times a day Therapy completed 01/16/2021 10/24/2021 sulfamethoxazole-trime thoprim (BACTRIM DS) 800-160 mg per tablet Take 1 tablet by mouth 2 (two) times a day Therapy completed 01/17/2021 10/24/2021 tobramycin (TOBREX) 0.3 % ophthalmic solution Administer 1 drop into the left eye 4 (four) times a day Therapy completed 01/16/2021 10/24/2021 documented as of this encounter Care Teams Banquet Attendant Relationship Specialty Start Date End Date No, Physician PCP - General 02/28/21 No, Physician 12/09/20 documented as of this encounter
--- OUTSIDE RECORDS SUMMARY | 2024-09-11 03:19 | XMS_ITS | Clinical Summary ---
Author Organization [facility] Address [address] [place] [address] Care Team Providers Care Kitchen Helper Name Role Phone No, Physician Unavailable No, Physician Primary Care Provider [phone] Allergies No known active allergies Medications IBUPROFEN ORAL Take by mouth Active traZODone (DESYREL) 50 mg tabletIndication s:Insomnia, unspecified type TAKE 1 TABLET BY MOUTH NIGHTLY NEEDED FOR SLEEP 90 tablet 1 05/12/2023 Active SUMAtriptan (IMITREX) 50 mg tabletIndication s:Traumatic brain injury with loss of consciousness, subsequent encounter,Chroni c post-traumatic headache, not intractable TAKE 1 TABLET BY MOUTH ONCE NEEDED FOR MIGRAINE-MAY REPEAT ONCE AFTER 2 HOURS IF NEEDED. 9 tablet 5 05/12/2023 Active Active Problems Problem Noted Date Diagnosed Date Insomnia 11/15/2022 Chronic post-traumatic headache, not intractable 11/15/2022 Traumatic brain injury with loss of consciousnes s ([facility]) 08/05/2021 Assessment & Plan (08/05/2021 10:00 AM PROPERTY DAMAGE CLAIMS ADJUSTOR): Suspect at least moderate severity, although unclear. Persistent cognitive, visual, and balance impairments. Persistent headache, but relatively mild. Has emotional dysregulation but would prefer to avoid pharmacologic treatment at this time. ?? Offered but will defer MRI at this time given clinical stability/improvement ?? 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 Right transoral radical tonsillectomy. Use of microscope. 2. Right neck dissection level 2A, 2B, 3, and 4. 3. Lysis of external carotid system. Ligation of lingo-facial trunk. Mass in neck 07/13/2020 Overview (07/13/2020): Added automatically from request for surgery [id number] Mass of right side of neck 06/27/2020 Immunizations Name Administration Dates Next Due Tdap 12/09/2020 Surgical History Surgery Date Site/Laterality Comments FEMUR SURGERY NECK SURGERY FEMUR FRACTURE SURGERY ANKLE FRACTURE SURGERY Medical History Medical History Date Comments Peptic ulcer Social History Tobacco Use Types Packs/Day Years [...] on file Legal Sex Male 11:16 AM PROPERTY DAMAGE CLAIMS ADJUSTOR Gender Identity Not on file Sexual Orientation Not on file Obstetrics History Last Filed Vital Signs Vital Sign Reading Time Taken Comments Blood Pressure 117/80 11/15/2022 2:15 PM CDT Pulse 84 11/15/2022 2:15 PM CDT Temperature 36.8 ??C (98.3 ??F) 11/15/2022 2:15 PM CD T Respiratory Rate 9 01/16/2021 2:05 PM CDT Oxygen Saturation 97% 11/15/2022 2:15 PM CDT Inhaled Oxygen Concentration - - Weight 96.4 kg (212 lb 8 oz) 11/15/2022 2:15 PM CDT Height 177.8 cm (5' 10 ) 11/15/2022 2:15 PM CDT Body Mass Index 30.49 11/15/2022 2:15 PM CDT Plan of Treatment Health Maintenance Due Date Last Done Comments Colon Cancer Screening-Colonoscopy 1972 Depression Screening 1972 Hepatitis C Screening 1972 Prostate Cancer Screening-PSA 1972 Hepatitis B Screening 1990 Regular Well Visit/Exam 18-64 1990 Zoster Vaccine (1 of 2) 2022 Influenza Vaccine (#1) 2024 DTaP/Tdap/Td Vaccine (2 - Td or Tdap) 12/09/2030 12/09/2020 Pneumococcal vaccine <65 Aged Out No longer eligible based on patient's age to complete this topic Medical Devices Implanted Type Area Cardiac Surgeon Device Identifier Shelf Expiration Date Model / Serial / Lot Synthes 294.55 Schanz 5mm 170mm 50mm Blunt Trocar Point Xlong Screw External - [id number] Implanted:Qty : 2 on 12/10/2020 by Sachin Odonnell MD at [facility] Calcaneus Synthes I 294.55 / / [employer]Ortho [id number] Evos 3.5mm 80mm Self Tap Cortex Screw Bone Sterile - [id number] Implanted:Qty : 1 on 12/12/2020 by No Thomas MD at [facility] Left: Calcaneus [employer]O rtho [id number] / / [employer] /Ortho [id number] Evos 3.5mm 70mm Self Tap Cortex Screw Bone Sterile - [id number] Implanted:Qty : 2 on 12/12/2020 by No Thomas MD at [facility] Left: Calcaneus [employer]o [id number] / / [employer] /Ortho [id number] Evos 3.5mm 50mm Self Tap Cortex Screw Bone Sterile - [id number] Implanted:Qty : 1 on 12/12/2020 by No Thomas MD at [facility] Left: Calcaneus [employer]o [id number] / / [employer] /Ortho [id number] Evos 3.5mm 55mm Self Tap Cortex Screw Bone Sterile - [id number] Implanted:Qty : 1 on 12/12/2020 by No Thomas MD at [facility] Left: Calcaneus [employer]o [id number] / / [employer] /Ortho [id number] Evos 3.5mm 40mm Self Tap Cortex Screw Bone Sterile - [id number] Implanted:Qty : 1 on 12/12/2020 by No Thomas MD at [facility] Left: Calcaneus [employer]o [id number] / / Synthes 212.134 3.5mm 2.9mm 44mm Self Tap Lock Stardrive Conical Head T15 Full - [id number] Implanted:Qty : 1 on 12/19/2020 by No Thomas MD at [facility] Right: Tibia Synthes I 212.134 / / Synthes 212.118 3.5mm 2.9mm 42mm Self Tap Lock Stardrive Conical Head Full Thread - [id number] Implanted:Qty : 1 on 12/19/2020 by No Thomas MD at [facility] Right: Tibia Synthes I 212.118 / / Synthes 212.117 3.5mm 2.9mm 40mm Self Tap Lock Stardrive Conical Head T15 Full - [id number] Implanted:Qty : 2 on 12/19/2020 by No Thomas MD at [facility] Right: Tibia Synthes I 212.117 / / Synthes 204.830 3.5mm 6mm 30mm 2.5mm Self Tap Small Hexagonal Socket Low Profile - [id number] Implanted:Qty : 3 on 12/19/2020 by No Thomas MD at [facility] Right: Tibia Synthes I 204.830 / / Synthes 204.838 3.5mm 6mm 38mm 2.5mm Self Tap Small Hexagonal Socket Low Profile - [id number] Implanted:Qty : 1 on 12/19/2020 by No Thomas MD at [facility] Right: Tibia Synthes I 204.838 / / Synthes 204.832 3.5mm 6mm 32mm 2.5mm Self Tap Small Hexagonal Socket Low Profile - [id number] Implanted:Qty : 2 on 12/19/2020 by No Thomas MD at [facility] Right: Tibia Synthes I 204.832 / / Synthes 204.840 3.5mm 6mm 40mm 2.5mm Self Tap Small Hexagonal Socket Low Profile - [id number] Implanted:Qty : 1 on 12/19/2020 by No Thomas MD at [facility] Right: Tibia Synthes I 204.840 / / Synthes 212.119 3.5mm 2.9mm 45mm Self Tap Lock Stardrive Conical Head T15 Full - [id number] Implanted:Qty : 1 on 12/19/2020 by No Thomas MD at [facility] Right: Tibia Synthes I 212.119 / / Synthes 241.450 Lcp Combi 210mm 15 Hole Low Profile Limit Contact Taper Tip - [id number] Implanted:Qty : 1 on 12/19/2020 by No Thomas MD at [facility] Right: Tibia Synthes I 241.450 / / Abyrx Os-Mon-1001 Wax Bone Montage Sterile - [id number] Implanted:Qty : 1 on 12/21/2020 by No Thomas MD at [facility] Right: Ankle Abyrx [id number] 10/29/2022 OS-MON-1 00 / [id number] Abyrx Os-Mon-1001 Wax Bone Montage Sterile - [id number] Implanted:Qty : 1 on 12/21/2020 by No Thomas MD at [facility] Right: Ankle Abyrx [id number] 10/29/2022 OS-MON-1 00 Synthes .412 Lcp 56mm Variable Angle Lock Low Profile Precontour Calcaneal - [id number] Implanted:Qty : 1 on 12/21/2020 by No Thomas MD at [facility] Right: Ankle Synthes I 02211.412 / / Synthes 202.963 2.7mm 5mm 44mm 2.5mm Self Tap Stardrive Cortical T8 Screw Bone - [id number] Implanted:Qty : 1 on 12/21/2020 by No Thomas MD at [facility] Right: Ankle Synthes I 202.963 / / Synthes 02.050 2.7mm 50mm Self Tap Lock Variable Angle Stardrive T8 Screw Bone - [id number] Implanted:Qty : 2 on 12/21/2020 by No Thomas MD at [facility] Right: Ankle Synthes I 02.211.050 / / Synthes 02211.044 2.7mm 44mm Self Tap Lock Variable Angle Stardrive T8 Screw Bone - [id number] Implanted:Qty : 1 on 12/21/2020 by No Thomas MD at [facility] Right: Ankle Synthes I 02.211.044 / / Synthes 02.038 2.7mm 38mm Self Tap Lock Variable Angle Stardrive T8 Screw Bone - [id number] Implanted:Qty : 1 on 12/21/2020 by No Thomas MD at [facility] Right: Ankle Synthes I 02.211.038 / / Synthes 02.211.040 2.7mm 40mm Self Tap Lock Variable Angle Stardrive T8 Screw Bone - [id number] Implanted:Qty : 1 on 12/21/2020 by No Thomas MD at [facility] Right: Ankle Synthes I 02.211.040 / / Synthes 02.211.026 2.7mm 26mm Self Tap Lock Variable Angle Stardrive T8 Screw Bone - [id number] Implanted:Qty : 1 on 12/21/2020 by No Thomas MD at [facility] Right: Ankle Synthes I 02.211.026 / / Synthes 02.211.042 2.7mm 42mm Self Tap Lock Variable Angle Stardrive T8 Screw Bone - [id number] Implanted:Qty : 1 on 12/21/2020 by No Thomas MD at [facility] Right: Ankle Synthes I 02.211.042 / / Synthes 204.870 3.5mm 6mm 70mm 2.5mm Self Tap Small Hexagonal Socket Low Profile - [id number] Implanted:Qty : 1 on 12/21/2020 by No Thomas MD at [facility] Right: Ankle Synthes I 204.870 / / Synthes 204.875 3.5mm 6mm 75mm 2.5mm Self Tap Small Hexagonal Socket Low Profile - [id number] Implanted:Qty : 1 on 12/21/2020 by No Thomas MD at [facility] Right: Ankle Synthes I 204.875 / / Synthes 204.855 3.5mm 6mm 55mm 2.5mm Self Tap Small Hexagonal Socket Low Profile - [id number] Implanted:Qty : 2 on 12/21/2020 by No Thomas MD at [facility] Right: Ankle Synthes I 204.855 / / Explanted Type Area Cardiac Surgeon Device Identifier Shelf Expiration Date Model / Serial / Lot [employer] [id number] Jeremy .062in 9in Trocar Point One End Orthopedic Wire - [id number] Explanted:Qty: 1 on 12/12/2020 by No Thomas MD at [facility] Left: Calcaneus [employer] [id number] / / [employer] [id number] Jeremy .062in 9in 1 Trocar Smooth Wire Fixation - [id number] Explanted:Qty: 3 on 12/19/2020 by No Thomas MD at [facility] Right: Tibia [employer] [id number] / / Synthes 204.842 3.5mm 6mm 42mm 2.5mm Self Tap Small Hexagonal Socket Low Profile - [id number] Explanted:Qty: 1 on 12/19/2020 by No Thomas MD at [facility] Right: Tibia Synthes I 204.842 / / K Wire Explanted:Qty: 2 on 12/21/2020 by No Thomas MD at [facility] Right: Ankle Synthes I 292.820 / / Insurance [facility]/PP[facility] Address: [address] [address] [place] [address] [facility]/PP[facility] Address: [address] [address] [place] [address] [facility] CHOICE PLUS [facility] H[facility]/PPO Address: [address] [place] [address] [facility] Advance Directives For more information, please contact: [phone] * Full Code (Latest Code Status on File) Date Activated Date Inactivated Comments 12/10/2020 4:33 AM 12/25/2020 8:02 PM * Full Code Date Activated Date Inactivated Comments 08/07/2020 11:03 AM 08/08/2020 3:36 PM Care Teams Kitchen Helper Relationship Specialty Start Date End Date No, Physician PCP - General 02/28/21 No, Physician 12/09/20
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
--- OUTSIDE RECORDS SUMMARY | 2024-09-11 03:19 | XMS_ITS | Encounter Summary ---
Author Organization [facility] Address [address] [place] [address] Phone Care Team Providers Care Spray Cementer Name Role Phone No, Physician Unavailable No, Physician Primary Care Provider [phone] Reason for Referral * Diagnostic Imaging (Routine) - Closed Specialty Diagnoses / Procedures Referred By Dank t Referred To Contact Diagnoses Left wrist pain Procedures XR Wrist Left 3 or More Views No Thomas MD Phone: tel: [facility] Referral ID Status Reason Start Date Expiration Date Visits Re quested Visits Authorized [id number] Closed 04/25/2021 05/25/2022 1 1 * Diagnostic Imaging (Routine) - Closed Specialty Diagnoses / Procedures Referred By Contac t Referred To Contact Diagnoses Open displaced fracture of body of right calcaneus with routine healing, subsequent encounter Left wrist pain Procedures XR Tibia Fibula Right 2 Views No Thomas MD Phone: tel: [facility] Referral ID Status Reason Start Date Expiration Date Visits Re quested Visits Authorized [id number] Closed 04/25/2021 05/25/2022 1 1 Encounter Details Date Type Department Care Team (Late st Contact Info) Description 04/25/2021 Orders Only [facility] Orthopaedic Surgery [address] [facility] 6th [place] [address] [place] [address] No Thomas MD [address] [place] [address] Open displaced fracture of body of right calcaneus with routine healing, subsequent encounter (Primary Dx); Left wrist pain Social History Tobacco Use Types Packs/Day Years [...] on file Legal Sex Male 11:16 AM 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 Healing reduced and internally fixed intra-articular left calcaneus fracture. 2. Unchanged nondisplaced intra-articular left fifth metatarsal base fracture. 3. Healing reduced and internally fixed right distal tibial shaft fracture. 4. Healing reduced and internally fixed and grafted intra-articular right calcaneus fracture. Electronically signed by: Omkar Castano M.D. Narrative 04/25/2021 11:49 AM CDT EXAMINATION: 1. Left ankle 3 views 2. Left calcaneus 2 views 3. Right calcaneus 2 views 4. Right tibia/fibula 2 views HISTORY: Fracture follow-up FINDINGS: 2 views of the right calcaneus were performed with comparison made to 02/28/2021. There is a healing reduced and internally fixed grafted comminuted intra-articular right calcaneus fracture. There is no evidence of instrumentation failure. Several of the screw heads remain proud to the posterior calcaneus. There is a partially imaged likely healing reduced and internally fixed right distal tibial fracture. There is right distal Achilles heterotopic ossification. 2 views of the right tibia and fibula were performed. There is a healing internally fixed right tibial shaft fracture. There is no evidence of instrumentation failure. There is no new fracture. 3 views of the left ankle and 2 views of the left calcaneus were performed with comparison made to 02/28/2021. There is a healed left distal fibular shaft fracture. There is a reduced and internally fixed healing intra-articular left calcaneus fracture. There is an unchanged intra-articular left fifth metatarsal base fracture. There is no evidence of instrumentation failure. Procedure Note Omkar Castano MD PhD - 04/25/2021 EXAMINATION: 1. Left ankle 3 views 2. Left calcaneus 2 views 3. Right calcaneus 2 views 4. Right tibia/fibula 2 views HISTORY: Fracture follow-up FINDINGS: 2 views of the right calcaneus were performed with comparison made to 02/28/2021. There is a healing reduced and internally fixed grafted comminuted intra-articular right calcaneus fracture. There is no evidence of instrumentation failure. Several of the screw heads remain proud to the posterior calcaneus. There is a partially imaged likely healing reduced and internally fixed right distal tibial fracture. There is right distal Achilles heterotopic ossification. 2 views of the right tibia and fibula were performed. There is a healing internally fixed right tibial shaft fracture. There is no evidence of instrumentation failure. There is no new fracture. 3 views of the left ankle and 2 views of the left calcaneus were performed with comparison made to 02/28/2021. There is a healed left distal fibular shaft fracture. There is a reduced and internally fixed healing intra-articular left calcaneus fracture. There is an unchanged intra-articular left fifth metatarsal base fracture. There is no evidence of instrumentation failure. IMPRESSION: 1. Healing reduced and internally fixed intra-articular left calcaneus fracture. 2. Unchanged nondisplaced intra-articular left fifth metatarsal base fracture. 3. Healing reduced and internally fixed right distal tibial shaft fracture. 4. Healing reduced and internally fixed and grafted intra-articular right calcaneus fracture. Electronically signed by: Omkar Castano M.D. us No Thomas MD IMG XR PROCEDURES Final Resu lt documented in this encounter Visit Diagnoses Diagnosis Open displaced fracture of body of right calcaneus with routine healing, subsequent encounter- Primary Left wrist pain Pain in joint, forearm documented in this encounter Care Teams Spray Cementer Relationship Specialty Start Date End Date No, Physician PCP - General 02/28/21 No, Physician 12/09/20 documented as of this encounter
--- OUTSIDE RECORDS SUMMARY | 2024-09-11 03:19 | XMS_ITS | Encounter Summary ---
Author Organization [facility] Address [address] [place] [address] Phone Care Team Providers Care Licensing Analyst Name Role Phone No, Physician Unavailable No, Physician Primary Care Provider [phone] Reason for Visit * Reason Onset Date Comments Jil LOVE 08/08/2022 Encounter Details Date Type Department Care Team (Late st Contact Info) Description 08/08/2022 Telephone [facility] General Neurology [address] 6th [address] [place] [address] Duglas Amador MD [address] [place] [address] Jil LOVE Social History Tobacco Use Types Packs/Day Years [...] on file Legal Sex Male 11:16 AM STAGE MANAGER Gender Identity Not on file Sexual Orientation Not on file documented as of this encounter Miscellaneous Notes * Telephone Encounter - Naomie Beckford RN - 08/09/2022 10:28 AM STAGE MANAGER Received fax from [place] DENIED Ref number: [id number] Reason for denial: must have trial/failure of two preferred drugs that are commonly used to treat your condition at the highest possible dose, or you had a bad reaction, or all cannot be used. The documentation provided for review does not show that you have met the criteria for approval at this time. I only see that he has tried Gabapentin. E MANAGER * Telephone Encounter - Naomie Beckford RN - 08/08/2022 2:55 PM STAGE MANAGER Received PA on CM Lane: [id number] QULIPTA 30mg TAB () [place] [employer] ID: [id number] Submitted and pending E MANAGER documented in this encounter Plan of Treatment Not on file documented as of this encounter Visit Diagnoses Not on filedocumented in this encounter Care Teams Licensing Analyst Relationship Specialty Start Date End Date No, Physician PCP - General 02/28/21 No, Physician 12/09/20 documented as of this encounter
--- OUTSIDE RECORDS SUMMARY | 2024-09-11 03:19 | XMS_ITS | Encounter Summary ---
Author Organization [facility] Address [address] [place] [address] Phone Care Team Providers Care Infant Room Teacher Name Role Phone No, Physician Unavailable No, Physician Primary Care Provider [phone] Encounter Details Date Type Department Care Team (Late st Contact Info) Description 08/14/2022 Telephone [facility] General Neurology [address] 6[address] [place] [address] Duglas Amador MD [address] [place] [address] Social History Tobacco Use Types Packs/Day Years [...] on file Legal Sex Male 11:16 AM STORAGE SOLUTIONS ARCHITECT Gender Identity Not on file Sexual Orientation Not on file documented as of this encounter Ordered Prescriptions Prescription Sig Dispense Quantity Refills Last Filled Start Date End Date DULoxetine (CYMBALTA) 30 mg capsuleIndications: Chronic post-traumatic headache, not intractable Week 1: take 30mg daily. Week 2 and thereafter: take 60mg daily. 60 capsule 5 08/14/2022 11/15/2022 documented in this encounter Miscellaneous Notes * Telephone Encounter - Amanda Browne RN - 08/14/2022 1:00 PM CST 3 attempts to reach pt 08/16 at 1255p LM with information below QuanEtienne Camejo karli I missed you on the phone. Unfortunately your insurance wont cover Qulipta until you try other medications first. Dr. Amador sent in Duloxetine for you to try. Please call with an update on response in 6 to 8 weeks. Please do not abruptly stop this medication. If you don't like it please contact us and we will give instructions on how to taper and stp it. If you prefer to talk on the phone,my direct number is [phone] Thanks and Amanda bryant 08/14 at 1p LM and will try again to reach him AGE SOLUTIONS ARCHITECT AGE SOLUTIONS ARCHITECT * Telephone Encounter - Duglas Amador MD - 08/14/2022 11:09 AM STORAGE SOLUTIONS ARCHITECT Amanda, could you please let Marco A know that his insurance is not able to cover Qulipta until he hastried another headache medication? I had previously told him this may be the case when I saw him. I am submitting a prescription for duloxetine for headache prevention. Thank you! AGE SOLUTIONS ARCHITECT documented in this encounter Plan of Treatment Not on file documented as of this encounter Visit Diagnoses Diagnosis Chronic post-traumatic headache, not intractable- Primary documented in this encounter Care Teams Infant Room Teacher Relationship Specialty Start Date End Date No, Physician PCP - General 02/28/21 No, Physician 12/09/20 documented as of this encounter
--- OUTSIDE RECORDS SUMMARY | 2024-09-11 03:19 | XMS_ITS | Referral Summary ---
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 Persistent cognitive, visual, and balance impairments. Persistent headache, but relatively mild. Has emotional dysregulation but would prefer to avoid pharmacologic treatment at this time. ?? Offered but will defer MRI at this time given clinical stability/improvement ?? 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 Gender Identity Not on file Sexual Orientation [...] 11/15/2022 2:15 PM CDT Plan of Treatment Not on file Medical Devices Implanted Type Area Screen Examiner Device Identifier Shelf Expiration Date Model / Serial / Lot Synthes 294.55 Schanz 5mm 170mm 50mm Blunt Trocar Point Xlong Screw External - [id number] Implanted:Qty : 2 on 12/10/2020 by Sachin Odonnell MD at [facility] Calcaneus Synthes I 294.55 / / [employer]Ortho [id number] Evos 3.5mm 80mm Self Tap Cortex Screw Bone Sterile - [id number] Implanted:Qty : 1 on 12/12/2020 by No Thomas MD at [facility] Left: Calcaneus Su[employer]/O rtho [id number] / / [employer] /Ortho [id number] Evos 3.5mm 70mm Self Tap Cortex Screw Bone Sterile - [id number] Implanted:Qty : 2 on 12/12/2020 by No Thomas MD at [facility] Left: Calcaneus [employer]/O rtho [id number] / / [employer] /Ortho [id number] Evos 3.5mm 50mm Self Tap Cortex Screw Bone Sterile - [id number] Implanted:Qty : 1 on 12/12/2020 by No Thomas MD at [facility] Left: Calcaneus [employer]/O rtho [id number] / / [employer] /Ortho [id number] Evos 3.5mm 55mm Self Tap Cortex Screw Bone Sterile - [id number] Implanted:Qty : 1 on 12/12/2020 by No Thomas MD at [facility] Left: Calcaneus [employer]Rich[employer]/O rtho [id number] / / [employer] /Ortho [id number] Evos 3.5mm 40mm Self Tap Cortex Screw Bone Sterile - [id number] Implanted:Qty : 1 on 12/12/2020 by No Thomas MD at [facility] Left: Calcaneus [employer]/O rtho [id number] / / Synthes 212.134 3.5mm 2.9mm 44mm Self Tap Lock Stardrive Conical Head T15 Full - [id number] Implanted:Qty : 1 on 12/19/2020 by No Thomas MD at [facility] Right: Tibia Synthes I 212.134 / / Synthes 212.118 3.5mm 2.9mm 42mm Self Tap Lock Stardrive Conical Head Full Thread - [id number] Implanted:Qty : 1 on 12/19/2020 by No Thomas MD at [facility] Right: Tibia Synthes I 212.118 / / Synthes 212.117 3.5mm 2.9mm 40mm Self Tap Lock Stardrive Conical Head T15 Full - [id number] Implanted:Qty : 2 on 12/19/2020 by No Thomas MD at [facility] Right: Tibia Synthes I 212.117 / / Synthes 204.830 3.5mm 6mm 30mm 2.5mm Self Tap Small Hexagonal Socket Low Profile - [id number] Implanted:Qty : 3 on 12/19/2020 by No Thomas MD at [facility] Right: Tibia Synthes I 204.830 / / Synthes 204.838 3.5mm 6mm 38mm 2.5mm Self Tap Small Hexagonal Socket Low Profile - [id number] Implanted:Qty : 1 on 12/19/2020 by No Thomas MD at [facility] Right: Tibia Synthes I 204.838 / / Synthes 204.832 3.5mm 6mm 32mm 2.5mm Self Tap Small Hexagonal Socket Low Profile - [id number] Implanted:Qty : 2 on 12/19/2020 by No Thomas MD at [facility] Right: Tibia Synthes I 204.832 / / Synthes 204.840 3.5mm 6mm 40mm 2.5mm Self Tap Small Hexagonal Socket Low Profile - [id number] Implanted:Qty : 1 on 12/19/2020 by No Tohmas MD at [facility] Right: Tibia Synthes I 204.840 / / Synthes 212.119 3.5mm 2.9mm 45mm Self Tap Lock Stardrive Conical Head T15 Full - [id number] Implanted:Qty : 1 on 12/19/2020 by No Thomas MD at [facility] Right: Tibia Synthes I 212.119 / / Synthes 241.450 Lcp Combi 210mm 15 Hole Low Profile Limit Contact Taper Tip - [id number] Implanted:Qty : 1 on 12/19/2020 by No Thomas MD at [facility] Right: Tibia Synthes I 241.450 / / Abyrx Os-Mon-1001 Wax Bone Montage Sterile - [id number] Implanted:Qty : 1 on 12/21/2020 by No Thomas MD at [facility] Right: Ankle Abyrx [id number] 10/29/2022 OS-MON-1 00 Abyrx Os-Mon-1001 Wax Bone Montage Sterile - [id number] Implanted:Qty : 1 on 12/21/2020 by No Thomas MD at [facility] Right: Ankle Abyrx [id number] 10/29/2022 OS-MON-1 00 06 Synthes 02.211.412 Lcp 56mm Variable Angle Lock Low Profile Precontour Calcaneal - [id number] Implanted:Qty : 1 on 12/21/2020 by No Thomas MD at [facility] Right: Ankle Synthes I 02.211.412 / / Synthes 202.963 2.7mm 5mm 44mm 2.5mm Self Tap Stardrive Cortical T8 Screw Bone - [id number] Implanted:Qty : 1 on 12/21/2020 by No Thomas MD at [facility] Right: Ankle Synthes I 202.963 / / Synthes 02.211.050 2.7mm 50mm Self Tap Lock Variable Angle Stardrive T8 Screw Bone - [id number] Implanted:Qty : 2 on 12/21/2020 by No Thomas MD at [facility] Right: Ankle Synthes I 02.211.050 / / Synthes 02.211.044 2.7mm 44mm Self Tap Lock Variable Angle Stardrive T8 Screw Bone - [id number] Implanted:Qty : 1 on 12/21/2020 by No Thomas MD at [facility] Right: Ankle Synthes I 02.211.044 / / Synthes 02.211.038 2.7mm 38mm Self Tap Lock Variable Angle Stardrive T8 Screw Bone - [id number] Implanted:Qty : 1 on 12/21/2020 by No Thomas MD at [facility] Right: Ankle Synthes I 02.211.038 / / Synthes 02.211.040 2.7mm 40mm Self Tap Lock Variable Angle Stardrive T8 Screw Bone - [id number] Implanted:Qty : 1 on 12/21/2020 by No Thomas MD at [facility] Right: Ankle Synthes I 02.211.040 / / Synthes 02.211.026 2.7mm 26mm Self Tap Lock Variable Angle Stardrive T8 Screw Bone - [id number] Implanted:Qty : 1 on 12/21/2020 by No Thomas MD at [facility] Right: Ankle Synthes I 02.211.026 / / Synthes 02.211.042 2.7mm 42mm Self Tap Lock Variable Angle Stardrive T8 Screw Bone - [id number] Implanted:Qty : 1 on 12/21/2020 by No Thomas MD at [facility] Right: Ankle Synthes I 02.211.042 / / Synthes 204.870 3.5mm 6mm 70mm 2.5mm Self Tap Small Hexagonal Socket Low Profile - [id number] Implanted:Qty : 1 on 12/21/2020 by No Thomas MD at [facility] Right: Ankle Synthes I 204.870 / / Synthes 204.875 3.5mm 6mm 75mm 2.5mm Self Tap Small Hexagonal Socket Low Profile - [id number] Implanted:Qty : 1 on 12/21/2020 by No Thomas MD at [facility] Right: Ankle Synthes I 204.875 / / Synthes 204.855 3.5mm 6mm 55mm 2.5mm Self Tap Small Hexagonal Socket Low Profile - [id number] Implanted:Qty : 2 on 12/21/2020 by No Thomas MD at [facility] Right: Ankle Synthes I 204.855 / / Explanted Type Area Screen Examiner Device Identifier Shelf Expiration Date Model / Serial / Lot [employer] [id number] Jeremy .062in 9in Trocar Point One End Orthopedic Wire - [id number] Explanted:Qty: 1 on 12/12/2020 by No Thomas MD at [facility] Left: Calcaneus [employer] [id number] / / [employer] [id number] Jeremy .062in 9in 1 Trocar Smooth Wire Fixation - [id number] Explanted:Qty: 3 on 12/19/2020 by No Thomas MD at [facility] Right: Tibia [employer] [id number] / / Synthes 204.842 3.5mm 6mm 42mm 2.5mm Self Tap Small Hexagonal Socket Low Profile - [id number] Explanted:Qty: 1 on 12/19/2020 by No Thomas MD at [facility] Right: Tibia Synthes I 204.842 / / K Wire Explanted:Qty: 2 on 12/21/2020 by No Thomas MD at [facility] Right: Ankle Synthes I 292.820 / / Insurance [id number] [employer] [place] Address: [address] [place] [address] [facility] [place] [place] [employer] [place] [employer] Address: [place] [address] [id number] [employer] [place] [employer] Address: [address] [address] [place] [address] Advance Directives For more information, please contact: [phone] * Full Code (Latest Code Status on File) Date Activated Date Inactivated Comments 12/10/2020 4:33 AM 12/25/2020 8:02 PM * Full Code Date Activated Date Inactivated Comments 08/07/2020 11:03 AM 08/08/2020 3:36 PM Care Teams Kiln Tender Relationship Specialty Start Date End Date No, Physician PCP - General 02/28/21 No, Physician 12/09/20
--- OUTSIDE RECORDS SUMMARY | 2024-09-11 03:19 | XMS_ITS | Encounter Summary ---
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
--- OUTSIDE RECORDS SUMMARY | 2024-09-11 03:19 | XMS_ITS | Encounter Summary ---
Author Organization [facility] Address [address] [place] [address] Care Team Providers Care Leadership Development Instructor Name Role Phone No, Physician Unavailable No, Physician Primary Care Provider [phone] Reason for Referral * MRI/CAT/PET Scan (Routine) - Closed Specialty Diagnoses / Procedures Referred By Ambarac t Referred To Contact Radiology Diagnoses Open displaced fracture of body of right calcaneus with routine healing, subsequent encounter Procedures CT Foot Right WO Contrast No Thomas MD Phone: tel: [address] [address] Referral ID Status Reason Start Date Expiration Date Visits Re quested Visits Authorized [id number] Closed 11/09/2021 12/24/2021 1 1 Reason for Visit * MRI/CAT/PET Scan (Routine) - Closed Specialty Diagnoses / Procedures Referred By Dank ashley Referred To Contact Radiology Diagnoses Open displaced fracture of body of right calcaneus with routine healing, subsequent encounter Procedures CT Foot Right WO Contrast No Thomas MD Phone: tel: [address] [address] Referral ID Status Reason Start Date Expiration Date Visits Re quested Visits Authorized [id number] Closed 11/09/2021 12/24/2021 1 1 Encounter Details Date Type Department Care Team (Latest Contact Info) Description 11/14/2021 8:38 AM CDT - 11/14/2021 11:59 PM CDT Hospital Encounter [facility] [address] [place] [address] No Thomas MD [address] [place] [address] Open displaced fracture of body of right [...] on file 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 Gender Identity Not on file Sexual Orientation Not on file documented as of this encounter Discharge Disposition Disposition Code Departure Means Destination Discharge to home or self care documented in this encounter Plan of Treatment Not on file documented as of this encounter Procedures Procedure Name Priority Date/Time Associated Diagnosis Comments CT FOOT RIGHT WO CONTRAST Schedule Routine, Read Routine (OP Routine) 11/14/2021 9:30 AM CDT Open displaced fracture of body of right calcaneus with routine healing, subsequent encounter documented in this encounter Results * CT Foot Right WO Contrast (11/14/2021 9:30 AM CDT) Anatomical Region Laterality Modality Lower Extremities Right Computed Tomog lynn 11/14/2021 11:4 4 AM CDT Impressions 11/14/2021 8:33 PM CDT 1. ??Healing reduced, internally fixated, and grafted comminuted right calcaneus fracture which remains predominantly ununited with multiple persistent lucent fracture planes, areas of neocortex formation, poor incorporation of the graft, and new fractures of multiple fixation screws. 2. 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 Dictated by: Brian Khan MD The radiology attending physician has personally reviewed this study, and had reviewed and/or edited this written report and agrees with it. Electronically signed by: Rivas Parisi M.D. Narrative 11/14/2021 8:33 PM CDT EXAM: 1. ??CT FOOT RIGHT WO CONTRAST HISTORY: Right calcaneal fracture with persistent heel pain TECHNIQUE: Axial noncontrast CT of the right foot with sagittal and coronal reformats. COMPARISON: CT foot without contrast dated 12/10/2020 and radiographs dated 10/24/2021. FINDINGS: There is a healing, reduced, internally fixated, and grafted comminuted right calcaneus fracture with plate and screw construct. There are small areas of bridging callus formation posteriorly and anterosuperiorly however the fracture remains predominantly ununited with multiple persistent lucent fracture planes without bridging callus formation, areas of neocortex formation, particularly inferiorly and medially. ??There is minimal incorporation of the graft with persistent lucency around the graft. There are multiple new fractures of the posterior plate fixation screws. ??Additionally, several screws remain proud to the posterior calcaneus. There is severe posterolateral subtalar joint posttraumatic osteoarthritis. There is an area of heterotopic ossification the deltoid ligament. There is soft tissue swelling about the ankle and foot. ??There is no new acute fracture. Procedure Note Rivas Parisi MD - 11/14/2021 EXAM: 1. CT FOOT RIGHT WO CONTRAST HISTORY: Right calcaneal fracture with persistent heel pain TECHNIQUE: Axial noncontrast CT of the right foot with sagittal and coronal reformats. COMPARISON: CT foot without contrast dated 12/10/2020 and radiographs dated 10/24/2021. FINDINGS: There is a healing, reduced, internally fixated, and grafted comminuted right calcaneus fracture with plate and screw construct. There are small areas of bridging callus formation posteriorly and anterosuperiorly however the fracture remains predominantly ununited with multiple persistent lucent fracture planes without bridging callus formation, areas of neocortex formation, particularly inferiorly and medially. There is minimal incorporation of the graft with persistent lucency around the graft. There are multiple new fractures of the posterior plate fixation screws. Additionally, several screws remain proud to the posterior calcaneus. There is severe posterolateral subtalar joint posttraumatic osteoarthritis. There is an area of heterotopic ossification the deltoid ligament. There is soft tissue swelling about the ankle and foot. There is no new acute fracture. IMPRESSION: 1. Healing reduced, internally fixated, and grafted comminuted right calcaneus fracture which remains predominantly ununited with multiple persistent lucent fracture planes, areas of neocortex formation, poor incorporation of the graft, and new fractures of multiple fixation screws. 2. 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 Dictated by: Brian Khan MD The radiology attending physician has personally reviewed this study, and had reviewed and/or edited this written report and agrees with it. Electronically signed by: Rivas Parisi M.D. us No Thomas MD IMG CT PROCEDURES Final Resu lt documented in this encounter Visit Diagnoses Diagnosis Open displaced fracture of body of right calcaneus with routine healing, subsequent encounter documented in this encounter Care Teams Leadership Development Instructor Relationship Specialty Start Date End Date No, Physician PCP - General 02/28/21 No, Physician 12/09/20 documented as of this encounter
--- OUTSIDE RECORDS SUMMARY | 2024-09-11 03:19 | XMS_ITS | Encounter Summary ---
Author Organization [facility] Address [address] [place] [address] Care Team Providers Care Painting Department Supervisor Name Role Phone No, Physician Unavailable No, Physician Primary Care Provider [phone] Reason for Referral * Diagnostic Imaging (Routine) - Closed Specialty Diagnoses / Procedures Referred By Contac t Referred To Contact Diagnoses Left wrist pain Procedures XR Wrist Left 3 or More Views No Thomas MD Phone: tel: [facility] Referral ID Status Reason Start Date Expiration Date Visits Re quested Visits Authorized [id number] Closed 04/25/2021 05/25/2022 1 1 * Diagnostic Imaging (Routine) - Closed Specialty Diagnoses / Procedures Referred By Contac t Referred To Contact Diagnoses Open displaced fracture of body of right calcaneus with routine healing, subsequent encounter Left wrist pain Procedures XR Tibia Fibula Right 2 Views No Thomas MD Phone: tel: [facility] Referral ID Status Reason Start Date Expiration Date Visits Re quested Visits Authorized [id number] Closed 04/25/2021 05/25/2022 1 1 * Diagnostic Imaging (Routine) - Closed Specialty Diagnoses / Procedures Referred By Contac t Referred To Contact Diagnoses Open displaced fracture of body of right calcaneus with routine healing, subsequent encounter Pilon fracture of right tibia, closed, initial encounter Closed nondisplaced fracture of left calcaneus with routine healing, unspecified portion of calcaneus, subsequent encounter Procedures XR Wrist Left 3 or More Views No Thomas MD Phone: tel: [facility] Referral ID Status Reason Start Date Expiration Date Visits Re quested Visits Authorized [id number] Closed 04/25/2021 05/25/2022 1 1 * Diagnostic Imaging (Routine) - Closed Specialty Diagnoses / Procedures Referred By Contac t Referred To Contact Diagnoses Open displaced fracture of body of right calcaneus with routine healing, subsequent encounter Pilon fracture of right tibia, closed, initial encounter Closed nondisplaced fracture of left calcaneus with routine healing, unspecified portion of calcaneus, subsequent encounter Procedures XR Ankle Left 3 or More Views No Thomas MD Phone: tel: [facility] Referral ID Status Reason Start Date Expiration Date Visits Re quested Visits Authorized [id number] Closed 02/28/2021 03/30/2022 1 1 * Diagnostic Imaging (Routine) - Closed Specialty Diagnoses / Procedures Referred By Contac t Referred To Contact Diagnoses Open displaced fracture of body of right calcaneus with routine healing, subsequent encounter Pilon fracture of right tibia, closed, initial encounter Closed nondisplaced fracture of left calcaneus with routine healing, unspecified portion of calcaneus, subsequent encounter Procedures XR Calcaneus Left 2 or More Views No Thomas MD Phone: tel: [facility] Referral ID Status Reason Start Date Expiration Date Visits Re quested Visits Authorized [id number] Closed 02/28/2021 03/30/2022 1 1 * Diagnostic Imaging (Routine) - Closed Specialty Diagnoses / Procedures Referred By Contac t Referred To Contact Diagnoses Open displaced fracture of body of right calcaneus with routine healing, subsequent encounter Pilon fracture of right tibia, closed, initial encounter Closed nondisplaced fracture of left calcaneus with routine healing, unspecified portion of calcaneus, subsequent encounter Procedures XR Calcaneus Right 2 or More Views No Thomas MD Phone: tel: [facility] Referral ID Status Reason Start Date Expiration Date Visits Re quested Visits Authorized [id number] Closed 02/28/2021 03/30/2022 1 1 Reason for Visit * Diagnostic Imaging (Routine) - Closed Specialty Diagnoses / Procedures Referred By Contteagan t Referred To Contact Diagnoses Open displaced fracture of body of right calcaneus with routine healing, subsequent encounter Pilon fracture of right tibia, closed, initial encounter Closed nondisplaced fracture of left calcaneus with routine healing, unspecified portion of calcaneus, subsequent encounter Procedures XR Calcaneus Right 2 or More Views No Thomas MD Phone: tel: [facility] Referral ID Status Reason Start Date Expiration Date Visits Re quested Visits Authorized [id number] Closed 02/28/2021 03/30/2022 1 1 Encounter Details Date Type Department Care Team (Latest Contact Info) Description 04/25/2021 10:27 AM CDT - 04/25/2021 11:59 PM CDT Hospital Encounter [facility] [address] [place] [address] No Thomas MD [address] [facility] [address] [place] [address] Open displaced fracture of body of right calcaneus with routine healing, subsequent encounter; Pilon fracture of right tibia, closed, initial encounter; Closed nondisplaced fracture of left calcaneus with routine healing, unspecified portion of calcaneus, subsequent encounter; Left wrist pain Discharge Disposition: Discharge to home or self [...] on file 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 Gender Identity Not on file Sexual Orientation Not on file documented as of this encounter Medications at Time of Discharge gabapentin (NEURONTIN) 300 mg capsule Take 1 capsule (300 mg total) by mouth 2 (two) times a day 60 capsule 12/25/2020 2 prednisoLONE acetate (PRED FORTE) 1 % ophthalmic suspension Administer 1 drop into the left eye 4 (four) times a day 5 mL 3 01/16/2021 2 sulfamethoxazole -trimethoprim (BACTRIM DS) 800-160 mg per tablet Take 1 tablet by mouth 2 (two) times a day 28 tablet 01/17/2021 2 tobramycin (TOBREX) 0.3 % ophthalmic solution Administer 1 drop into the left eye 4 (four) times a day 5 mL 01/16/2021 2 documented as of this encounter Discharge Disposition Disposition Code Departure Means Destination Discharge to home or self care documented in this encounter Plan of Treatment Scheduled Orders Name Type Priority Associated Diagnoses Orde r Schedule XR Wrist Left 3 or More Views Imaging Schedule Routine, Read Routine (OP Routine) Left wrist pain Once for 1 Occurrences starting 04/25/2021 until 04/25/2021 documented as of this encounter Procedures Procedure Name Priority Date/Time Associated Diagnosis Comments XR TIBIA FIBULA RIGHT2 VIEWS Routine 04/25/2021 11:44 AM CDT Open displaced fracture of body of right calcaneus with routine healing, subsequent encounter Left wrist pain XR WRIST LEFT 3 OR MORE VIEWS Schedule Routine, Read Routine (OP Routine) 04/25/2021 11:44 AM CDT Open displaced fracture of body of right calcaneus with routine healing, subsequent encounter Pilon fracture of right tibia, closed, initial encounter Closed nondisplaced fracture of left calcaneus with routine healing, unspecified portion of calcaneus, subsequent encounter XR CALCANEUS RIGHT 2 OR MORE VIEWS Routine 04/25/2021 10:44 AM CDT Open displaced fracture of body of right calcaneus with routine healing, subsequent encounter Pilon fracture of right tibia, closed, initial encounter Closed nondisplaced fracture of left calcaneus with routine healing, unspecified portion of calcaneus, subsequent encounter XR CALCANEUS LEFT 2 OR MORE VIEWS Routine 04/25/2021 10:44 AM CDT Open displaced fracture of body of right calcaneus with routine healing, subsequent encounter Pilon fracture of right tibia, closed, initial encounter Closed nondisplaced fracture of left calcaneus with routine healing, unspecified portion of calcaneus, subsequent encounter XR ANKLE LEFT 3 OR MORE VIEWS Routine 04/25/2021 10:44 AM CDT Open displaced fracture of body of right calcaneus with routine healing, subsequent encounter Pilon fracture of right tibia, closed, initial encounter Closed nondisplaced fracture of left calcaneus with routine healing, unspecified portion of calcaneus, subsequent encounter documented in this encounter Results * XR Tibia Fibula [...] XR PROCEDURES Final Resu lt * XR Wrist Left 3 or More Views (04/25/2021 11:44 AM CDT) Anatomical Region Laterality Modality Upper Extremities, Wrist Left Compute d Radiography 04/25/2021 11:5 8 AM CDT Impressions 04/25/2021 11:58 AM CDT 1. 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 2. 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 Findings may represent ulnar carpal impaction. 3. Developing callus is noted along the volar aspect of the distal radius which may represent a healing fracture of the volar lip of the radius. Electronically signed by: Omkar Castano M.D. Narrative 04/25/2021 11:58 AM CDT EXAMINATION: Left wrist 3 views HISTORY: Left wrist pain FINDINGS: 3 views of the left wrist were performed with comparison made to 12/09/2020. There is new widening of the scapholunate interval. There is ulnar positive variance with associated lunate chondrosis. There is new callus formation along the volar aspect of the distal radius which may represent a healing fracture of the volar lip of the radius. Ossific fragments are redemonstrated along the radiocarpal joint space adjacent to the radial styloid. There is moderate radiocarpal osteoarthritis. There is mild dorsal tilting of the lunate. There is osteoarthritis of the distal radial ulnar joint. Procedure Note Omkar Castano MD PhD - 04/25/2021 EXAMINATION: Left wrist 3 views HISTORY: Left wrist pain FINDINGS: 3 views of the left wrist were performed with comparison made to 12/09/2020. There is new widening of the scapholunate interval. There is ulnar positive variance with associated lunate chondrosis. There is new callus formation along the volar aspect of the distal radius which may represent a healing fracture of the volar lip of the radius. Ossific fragments are redemonstrated along the radiocarpal joint space adjacent to the radial styloid. There is moderate radiocarpal osteoarthritis. There is mild dorsal tilting of the lunate. There is osteoarthritis of the distal radial ulnar joint. IMPRESSION: 1. 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 2. 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 Findings may represent ulnar carpal impaction. 3. Developing callus is noted along the volar aspect of the distal radius which may represent a healing fracture of the volar lip of the radius. Electronically signed by: Omkar Castano M.D. us No Thomas MD IMG XR PROCEDURES Final Resu lt * XR Ankle Left 3 or More Views (04/25/2021 10:44 AM CDT) Anatomical Region Laterality Modality Lower Extremities, Ankle Left Compute d Radiography 04/25/2021 11:4 9 AM CDT Impressions [...] PROCEDURES Final Resu lt * XR Calcaneus Left 2 or More Views (04/25/2021 10:44 AM CDT) Anatomical Region Laterality Modality Lower Extremities, Foot Left Computed Radiography 04/25/2021 11:4 9 AM CDT Impressions [...] XR Calcaneus Right 2 or More Views (04/25/2021 10:44 AM CDT) Anatomical Region Laterality Modality Lower Extremities, Foot Right Computed Radiography 04/25/2021 11:4 9 AM CDT Impressions [...] right calcaneus with routine healing, subsequent encounter Pilon fracture of right tibia, closed, initial encounter Closed nondisplaced fracture of left calcaneus with routine healing, unspecified portion of calcaneus, subsequent encounter Left wrist pain Pain in joint, forearm documented in this encounter Care Teams Painting Department Supervisor Relationship Specialty Start Date End Date No, Physician PCP - General 02/28/21 No, Physician 12/09/20 documented as of this encounter
--- OUTSIDE RECORDS SUMMARY | 2024-09-11 03:19 | XMS_ITS | Encounter Summary ---
Author Organization [facility] Address [address] [place] [address] Phone Care Team Providers Care Cotton Classer Name Role Phone No, Physician Unavailable No, Physician Primary Care Provider [phone] Reason for Referral * MRI/CAT/PET Scan (Routine) - Closed Specialty Diagnoses / Procedures Referred By Contac t Referred To Contact Radiology Diagnoses Open displaced fracture of body of right calcaneus with routine healing, subsequent encounter Procedures CT Foot Right WO Contrast No Thomas MD Phone: tel: [facility] [address] [place] [address] Referral ID Status Reason Start Date Expiration Date Visits Re quested Visits Authorized [id number] Closed 11/09/2021 12/24/2021 1 1 OMIC DEVELOPER Encounter Details Date Type Department Care Team (Late st Contact Info) Description 10/26/2021 Orders Only [facility] Orthopaedic Surgery [address] [facility] Advanced Medicine 6th [place] [address] [place] [address] No Thomas MD [address] [place] [address] Open displaced fracture of body of right [...] on file 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
--- OUTSIDE RECORDS SUMMARY | 2024-09-11 03:19 | XMS_ITS | Encounter Summary ---
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
--- OUTSIDE RECORDS SUMMARY | 2024-09-11 03:19 | XMS_ITS | Encounter Summary ---
Author Organization [facility] Address [address] [place] [address] Care Team Providers Care Patient Transporter Name Role Phone No, Physician Unavailable No, Physician Primary Care Provider [phone] Reason for Referral * MRI/CAT/PET Scan (Routine) - Closed Specialty Diagnoses / Procedures Referred By Ambarac gabi Referred To Contact Radiology Diagnoses Traumatic brain injury with loss of consciousness, subsequent encounter Procedures MRI Brain W WO Contrast Duglas Amador MD Phone: tel: fax: [address] [address] Referral ID Status Reason Start Date Expiration Date Visits Re quested Visits Authorized [id number] Closed 08/16/2022 08/16/2023 1 1 ROENTGENOLOGIST Reason for Visit * MRI/CAT/PET Scan (Routine) - Closed Specialty Diagnoses / Procedures Referred By Dank ashley Referred To Contact Radiology Diagnoses Traumatic brain injury with loss of consciousness, subsequent encounter Procedures MRI Brain W WO Contrast Duglas Amador MD Phone: tel: fax: [address] [address] Referral ID Status Reason Start Date Expiration Date Visits Re quested Visits Authorized [id number] Closed 08/16/2022 08/16/2023 1 1 Encounter Details Date Type Department Care Team (Latest Contact Info) Description 09/03/2022 2:57 PM FOOT ROENTGENOLOGIST - 09/03/2022 11:59 PM FOOT ROENTGENOLOGIST Hospital Encounter [facility] [address] [place] [address] Traumatic brain injury with loss of consciousness, subsequent encounter Discharge Disposition: Discharge to home [...] on file Legal Sex Male 11:16 AM FOOT ROENTGENOLOGIST Gender Identity Not on file Sexual Orientation Not on file documented as of this encounter Medications at Time of Discharge IBUPROFEN ORAL Take by mouth atogepant (Qulipta) 30 mg tabletIndications :Traumatic brain injury with loss of consciousness, subsequent encounter,Chronic post-traumatic headache, not intractable Take 30 mg by mouth daily 30 tablet 3 08/08/[address] (CYMBALTA) 30 mg capsuleIndication s:Chronic post-traumatic headache, not intractable Week 1: take 30mg daily. Week 2 and thereafter: take 60mg daily. 60 capsule 5 08/14/2022 3 SUMAtriptan (IMITREX) 50 mg tabletIndications :Migraine Take 1 tablet (50 mg total) by mouth once as needed for migraine (headache) May repeat one time after 2 hours if needed. 9 tablet 5 08/08/2022 3 documented as of this encounter Discharge Disposition Disposition Code Departure Means Destination Discharge to home or self care documented in this encounter Plan of Treatment Not on file documented as of this encounter Procedures Procedure Name Priority Date/Time Associated Diagnosis Comments MRI BRAIN W WO CONTRAST Schedule Routine, Read Routine (OP Routine) 09/03/2022 3:43 PM FOOT ROENTGENOLOGIST Traumatic brain injury with loss of consciousness, subsequent encounter documented in this encounter Results * MRI Brain W WO Contrast (09/03/2022 3:43 PM FOOT ROENTGENOLOGIST) Anatomical Region Laterality Modality Head and Neck N/A Magnetic Resonan ce 09/03/2022 3:55 PM FOOT ROENTGENOLOGIST Narrative 09/03/2022 4:09 PM FOOT ROENTGENOLOGIST EXAM DESCRIPTION: ?? MRI BRAIN W WO [...] 4:09 PM - Electronically signed by ??Mina Valera.D. AG: ERIKA D: ??09/03/2022 4:09 PM T: ??09/03/2022 4:09 PM Report ID: [id number] Reading Location: ??[id number] Procedure Note Mina Clark MD - 09/03/2022 [...] Electronically signed by Mina Clark M.D. AG: ERIKA Report ID: [id number] Reading Location: [id number] Duglas Amador MD IMG MRI PROCEDURES Final R esult documented in this encounter Visit Diagnoses Diagnosis Traumatic brain injury with loss of consciousness, subsequent encounter documented in this encounter Administered Medications Inactive Administered Medications - up to 3 most recent administrations Medication Order MAR Action Action Date Dose Rate Site gadoterate meglumine injection 15 mL 15 mL, intravenous, Once in imaging, contrast, Starting on Tu09/03/22 at 1544, For 1 dose Contrast Given 09/03/2022 3:45 PM FOOT ROENTGENOLOGIST 15 mL documented in this encounter Orders Medications Ordered That Mynor ht Not Have Been Administered Count Last Ordered Date First Ordered Date gadoterate meglumine injection 15 mL 1 10/2022 documented in this encounter Care Teams Patient Transporter Relationship Specialty Start Date End Date No, Physician PCP - General 02/28/21 No, Physician 12/09/20 documented as of this encounter
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
--- OUTSIDE RECORDS SUMMARY | 2024-09-11 03:20 | XMS_ITS | Encounter Summary ---
Author Organization [facility] Address [address] [place] [address] Phone Care Team Providers Care Imcu Specialist Name Role Phone Unknown, Notinfile Primary Care Provider Unavail able No, Physician Unavailable Reason for Visit * Reason Comments Post-op Encounter Details Date Type Department Care Team (Late st Contact Info) Description 01/03/2021 11:30 AM CDT Office Visit [facility] Orthopaedic Surgery [address] 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 Got his splints wet and took them off. Denies fevers, chills, wound redness or drainage. Pain: mild. Taking Lovenox for DVT prophylaxis. Objective: Patient is healthy-appearing and well-groomed, in no apparent distress. Patient is oriented to time, place, and person. Bilateral: Incision healing well, no drainage or erythema; no deformity or crepitation. Range of motion: diminished range with pain. Leg warm and well-perfused, capillary refill <2 seconds. Ankle plantar-/dorsiflexion and EHL strength 5/5. Superficial and deep peroneal and tibial nerve sensation normal. Imaging No new radiographs today. Assessment: Mr. Deluna is a 50 y.o. male who sustained a right pilon and bilateral calcaneus fracture with operative management over several days, most recently 12/21/2020. Plan: -- sutures removed today. Okay to shower starting tomorrow. No soaking in pool or tub. -- Continue weight-bearing status as prior -- NWB BLE, strict elevation. -- Return to clinic in 4 weeks with repeat radiographs (AP/lateral ankle R and B calc). -- DVT prophylaxis: Lovenox. Patient understands risks/benefits of prophylactic treatment for deep venous thrombosis, including the fact that treatment can lead to increased bleeding, seroma formation, drainage, infection, possibly necessitating further surgery. However, we have discussed that the risk of DVT leading to possible pulmonary embolus and outweigh these risks and the patient will continue prophylactic treatment. The patient understands that if he/she cannot obtain Lovenox as recommended, we will plan to substitute enteric- coated aspirin, however the efficacy is not as high and may lead to a higher risk of deep venous thrombosis, leading to possible pulmonary embolus and . -- Call with any questions. -- Work status: no work Mother present during discussion and examination. documented in this encounter Plan of Treatment Not on file documented as of this encounter Visit Diagnoses Diagnosis Open displaced fracture of body of right calcaneus, initial encounter- Primary Pilon fracture of right tibia, closed, initial encounter documented in this encounter Care Teams Imcu Specialist Relationship Specialty Start Date End Date Unknown, Notinfile PCP - General 12/25/20 02/27/21 No, Physician 12/09/20 documented as of this encounter
--- OUTSIDE RECORDS SUMMARY | 2024-09-11 03:20 | XMS_ITS | Encounter Summary ---
Author Organization [facility] Address [address] [place] [address] Phone Care Team Providers Care Associate Professor Of Counseling Name Role Phone Unknown, Darian Primary Care Provider Unavail able No, Physician Unavailable Reason for Visit * Auth/Cert Specialty Diagnoses / Procedures Referred By Dank t Referred To Contact Referral ID Status Reason Start Date Expiration Date Visits Re quested Visits Authorized [id number] 1 1 Encounter Details Date Type Department Care Team (Late st Contact Info) Description 12/27/2020 Home Care Visit [facility] [address] [place] [address] [address] [place] [address] Samira Calvert, SHAHID TRAVEL SCREENING CASE COMMUNICATION Social History Tobacco Use Types Packs/Day Years Used Date Smoking Tobacco: Never Smokeless Tobacco: Never Alcohol Use Standard Drinks/Week Comments Yes 0 (1 standard drink = 0.6 oz pur e alcohol) Sex and Gender Information Value Date Recorded Sex Assigned at Not on file 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
--- OUTSIDE RECORDS SUMMARY | 2024-09-11 03:20 | XMS_ITS | Encounter Summary ---
Author Organization [facility] Healthcare Address [address] [place] [address] Care Team Providers Care Mirror Painter Name Role Phone Unknown, Notinfile Primary Care Provider Unavail able No, Physician Unavailable Encounter Details Date Type Department Care Team (Late st Contact Info) Description 01/16/2021 12:21 PM CDT Anesthesia Event [facility] ([facility]) [address] [place] [address] Rojelio Gould MD DDS [address] [place] [address] Haley Gary NP [address] [facility] [id number] [place] [address] Anesthesia Record Procedure Summary Procedure Name Responsible Anesthesiologist Anesthesia Start Time Anesthesia Stop Time VITRECTOMY - 25 GAUGE (Left: Eye) Rojelio Gould MD DDS 01/16/21 1221 01/16/21 1359 Events Date Time Event Comment 01/16/2021 1033 In Preop 1122 1220 In Room 1221 An Start 1221 An Start Data 1221 Start Supplemental O2 1225 An Induction The patient was reevaluated immediately before moderate or deep sedation use and before anesthesia induction. 1225 Anesthesia Ready 1227 Proc Start 1241 Incision Start 1347 an stop data 1349 Proc Fin 1352 Out of Room 1359 Handoff to RN I completed my handoff to the receiving nurse during which we: 1. Patient identified 2. Responsible provider identified 3. Pertinent medical history reviewed 4. Procedure type and surgical course discussed 5. Intraoperative anesthetic management and any significant issues discussed 6. Expectations and concerns for postop period discussed 7. Questions solicited from receiving nurse 8. Patient disposition at the time of handoff: PACU 1359 An Stop Meds Name Total midazolam PF 2 mg lidocaine (cardiac) syringe 2 % 100 mg propofol 40 mg fentaNYL 100 mcg etomidate 8 mg ondansetron 2 mg/mL PF 4 mg Lactated Ringer's (LR) infusion 700 mL * Agents Name O2% N2O O2 * Blood No blood administrations on file. Lines, Drains, and Airways Type Details Placement Removal Peripheral IV Placement Date: 01/16/21; Placement Time: 1106; Catheter Size: 22 G; Orientation: Right; Location: Hand; Site Prep: Other (Comment); Inserted by: jr; Insertion Attempts: 1; Patient Tolerance: Tolerated well 01/16/21 1107 by Verona Serra, YULISSA RETIRED Surgical Site 12/10/20; 1047; Le ft; Arm; 08/03/24 (Retired LDA, Removed/Completed by GoAlbert with LDA Utility); 1213 (Retired LDA, Removed/Completed by Epic with LDA Utility) 12/10/20 1047 by Vj Leung RN 08/03/24 1213 by Discharge Provider, Automatic RETIRED Surgical Site 12/10/20; 1115; Le ft, Posterior; Thigh; Surgical Site; 08/03/24 (Retired LDA, Removed/Completed by Epic with LDA Utility); 1213 (Retired LDA, Removed/Completed by Epic with LDA Utility) 12/10/20 1115 by Priscilla Chanel, YULISSA 08/03/24 1213 by Discharge Provider, Automatic RETIRED Surgical Site 12/10/20; 1115; Right; Hand; Index finger; 08/03/24 (Retired LDA, Removed/Completed by Epic with LDA Utility); 1213 (Retired LDA, Removed/Completed by Epic with LDA Utility) 12/10/20 1115 by Priscilla Chanel, YULISSA 08/03/24 1213 by Discharge Provider, Automatic RETIRED Surgical Site 12/12/20; 1319; Le ft; Foot; 08/03/24 (Retired LDA, Removed/Completed by Epic with LDA Utility); 1213 (Retired LDA, Removed/Completed by Epic with LDA Utility) 12/12/20 1319 by Charline Mccoy 08/03/24 1213 by Discharge Provider, Automatic RETIRED Surgical Site 12/19/20; 1452; Right; Leg; 08/03/24 (Retired LDA, Removed/Completed by Epic with LDA Utility); 1213 (Retired LDA, Removed/Completed by Epic with LDA Utility) 12/19/20 1452 by Corine Gray, YULISSA 08/03/24 1213 by Discharge Provider, Automatic RETIRED Surgical Site 12/21/20; Yes; Rig ht; Ankle/malleolus; 08/03/24 (Retired LDA, Removed/Completed by Epic with LDA Utility); 1213 (Retired LDA, Removed/Completed by Epic with LDA Utility) 12/21/20 0000 by Stephie Raymundo, YULISSA 08/03/24 1213 by Discharge Provider, Automatic RETIRED Surgical Site 01/16/21; 1250; Le ft; Eye; 08/03/24 (Retired LDA, Removed/Completed by Epic with LDA Utility); 1213 (Retired LDA, Removed/Completed by Epic with LDA Utility) 01/16/21 1250 by Mildred Boss RN 08/03/24 1213 by Discharge Provider, Automatic documented in this encounter Social History Tobacco Use Types Packs/Day [...] on file 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 Gender Identity Not on file Sexual Orientation Not on file documented as of this encounter OR Notes * Anesthesia Postprocedure Evaluation - Selvin Busby MD - 01/16/2021 2:21 PM CDT Patient: Marco A Deluna Procedure Summary Date: 01/16/21 Room / Location: [facility] OR [facility]OD 4 ROOM P / [facility] OR POD 4 Anesthesia Start: 1221 Anesthesia Stop: 1359 Procedures: VITRECTOMY - 25 GAUGE (Left Eye) ENDOLASER (Left Eye) EXCHANGE - AIR/FLUID (Left Eye) EXCHANGE GAS FLUID 14% C3F8 (Left Eye) Diagnosis: Left retinal detachment (Left retinal detachment [H33.22]) Surgeons: Adina Rose MD Responsible Provider: Rojelio Gould MD DDS Anesthesia Type: MAC ASA Status: 3 Anesthesia Type: MAC Last vitals BP 93/66 Pulse 81 Temp 36.6 ??C (97.9 ??F) Resp 9 SpO2 92% Anesthesia Post Evaluation Patient location during evaluation: PACU Patient participation: complete - patient participated Level of consciousness: fully awake Pain management: satisfactory to patient Airway patency: adequate and patent Cardiovascular status: acceptable and hemodynamically stable Respiratory status: acceptable and room air Hydration status: acceptable Pt is: normothermic Nausea/Vomiting status: none No complications documented. * Anesthesia Preprocedure Evaluation - Rojelio Gould MD DDS - 01/16/2021 11:18 AM CDT Images from the original note were not included. Anesthesia Evaluation Marco A Deluna is a 50 y.o. male Procedure(s): VITRECTOMY - 25 GAUGE ENDOLASER EXCHANGE - AIR/FLUID EXCHANGE GAS FLUID - POSSIBLE INJECTION/REMOVAL SILICONE OIL - POSSIBLE Pre-Op Diagnosis Codes: * Left retinal detachment [H33.22] Patient Active Problem List Diagnosis ??? Pilon fracture of right tibia, closed, initial encounter ??? Open displaced fracture of body of right calcaneus ??? Laceration of left forearm ??? Closed nondisplaced fracture of posterior wall of left acetabulum (CMS/HCC) ??? Left retinal detachment ??? Mass of right side of neck ??? Mass in neck ??? Tonsil cancer (CMS/HCC) Past Medical History: Diagnosis Date ??? Peptic ulcer Past Surgical History: Procedure Laterality Date ??? ANKLE FRACTURE SURGERY ??? FEMUR FRACTURE SURGERY ??? FEMUR SURGERY ??? NECK SURGERY No Known Allergies Med List Status: Nurse Complete Set By: Melisa Lugo at 01/12/2021 4:51 PM Taking? Last Dose Start Date End Date Provider acetaminophen (TYLENOL) 325 mg tablet 01/16/2021 -- -- Amanda Spivey MD acetaminophen 500 mg capsule 01/16/2021 12/25/20 01/24/21 Nicole Alston MD Take 2 capsules (1,000 mg total) by mouth every 6 (six) hours as needed for pain Patient taking differently: Take 1,000 mg by mouth every 6 (six) hours as needed for pain tvafyflywaaob-mjxgfic-jufrxzpe (EXCEDRIN MIGRAINE) 250-250-65 mg per tablet Past Month -- -- Amanda Spivey MD bacitracin-polymyxin B (POLYSPORIN) ointment Past Month 08/08/20 -- Donny Prasad MD Apply 1 application topically 2 (two) times a day cyclobenzaprine (FLEXERIL) 10 mg tablet 01/16/2021 12/25/20 01/24/21 Nicole Alston MD Take 1 tablet (10 mg total) by mouth 3 (three) times a day Patient taking differently: Take 10 mg by mouth daily with lunch enoxaparin (LOVENOX) 40 mg/0.4 mL syringe Past Week 12/25/20 02/05/21 Nicole Alston MD Inject 0.4 mL (40 mg total) under the skin nightly Patient taking differently: Inject 40 mg under the skin nightly Notes: Took last injection 01/06/21 erythromycin (ILOTYCIN) ophthalmic ointment 01/15/2021 -- -- Amanda Spivey MD gabapentin (NEURONTIN) 300 mg capsule 01/16/2021 12/25/20 01/24/21 Nicole Alston MD Take 1 capsule (300 mg total) by mouth 2 (two) times a day Patient taking differently: Take 300 mg by mouth 2 (two) times a day oxyCODONE (ROXICODONE) 5 mg immediate release tablet Past Month 08/08/20 -- Rosalie Gilliam MD Take 1 tablet (5 mg total) by mouth every 4 (four) hours as needed for pain oxyCODONE (ROXICODONE) 5 mg immediate release tablet Past Month 08/08/20 -- Rosalie Gilliam MD Take 1 tablet (5 mg total) by mouth every 4 (four) hours as needed for pain polyvinyl alcohol-povidone (REFRESH CLASSIC) 1.4-0.6 % dropperette Unknown -- -- Provider, MD Amanda Current Facility-Administered Medications: ??? acetaminophen (TYLENOL) tablet 1,000 mg, 1,000 mg, oral, Once ??? Lactated Ringer's (LR) infusion, 125 mL/hr, intravenous, Continuous ??? naloxone (NARCAN) 0.4 mg/mL injection 0.04-0.4 mg, 0.04-0.4 mg, intravenous, Once PRN ??? phenylephrine (MYDFRIN) 2.5 % ophthalmic solution 1 drop, 1 drop, left eye, Q5 Min, 1 drop at 01/16/21 1107 ??? sodium chloride 0.9% flush 0.5-20 mL, 0.5-20 mL, intra-catheter, Q8H MARILUZ ??? sodium chloride 0.9% flush 0.5-20 mL, 0.5-20 mL, intra-catheter, PRN ??? tropicamide (MYDRIACYL) 1 % ophthalmic solution 1 drop, 1 drop, left eye, Q5 Min, 1 drop at 01/16/21 1108 Social History Tobacco Use Smoking Status Never Smoker Smokeless Tobacco Never Used Substance and Sexual Activity Alcohol Use Yes Substance and Sexual Activity Drug Use Not Currently ??? Frequency: 2.0 times per week ??? Types: Marijuana Comment: last used 08/06/20 History reviewed. No pertinent family history. Vitals: 01/16/21 1055 01/16/21 1100 01/16/21 1105 BP: 108/80 Pulse: 103 103 104 Resp: 26 20 17 Temp: SpO2: 98% 96% 97% PT: No results found for requested labs within last 720 hours. INR: No results found for requested labs within last 720 hours. APTT: No results found for requested labs within last 720 hours. Hgb A1C: No results found for requested labs within last 720 hours. CBC RBC: 12/24/2020: 2.57 M/cumm* RDW: No results found for requested labs within last 720 hours. MCHC: 12/24/2020: 31.8 g/dL* MCH: 12/24/2020: 31.5 pg MCV: 12/24/2020: 99.2 fL* Hct: 12/24/2020: 25.5 %* Hgb: 12/24/2020: 8.1 g/dL* WBC: 12/24/2020: 7.6 K/cumm MPV: 12/24/2020: 8.5 fL* Platelets: 12/24/2020: 877 K/cumm* RDW CV: 12/24/2020: 14.3 % RDW Sd: 12/24/2020: 51.6 fL* BMP Glucose: 12/24/2020: 107 mg/dL Calcium: 12/24/2020: 8.6 mg/dL Sodium: 12/24/2020: 136 mmol/L Potassium: 12/24/2020: 4.5 mmol/L CO2: 12/24/2020: 30 mmol/L Chloride: 12/24/2020: 101 mmol/L BUN: 12/24/2020: 14 mg/dL Creatinine: 12/24/2020: 1.01 mg/dL Alfreda index score: 80 DOS Physical Exam Medical history, medications, and allergies reviewed. Attestation: With today's edits, I endorse the the findings of the H&P dated: 01/16/2021. Airway Exam: Mallampati: III Cervical ROM: FROM TM distance: 3 Cardiovascular Exam: Rate: regular Rhythm: regular Pulmonary Exam: LCTA, bilat EENT Exam: trachea midline Dental Exam: Appears intact Skin Exam: Skin is warm. Current state: Patient's current state is cooperative and interactive. Anesthesia Plan ASA 3 My patient is approved for the Anesthesia Controlled Medication protocol when under care of a ADVERTISING SPECIALIST Planned anesthesia: MAC Induction: Induction: intravenous. Postoperative Plan: Postoperative administration opioids intended. No postoperative mechanical ventilation intended. Patient's planned disposition post procedure is Outpatient. Informed Consent: Discussed plan with ADVERTISING SPECIALIST. Anesthesia plan and risks discussed with patient. Plan and Consent Comments: Patient had two miniature cupcakes with medicine at 0500 today. Surgery at 1200. Explained unknown possible increased risk of aspiration for waiting 7 hours during the day vs after sleeping overnight. Patient wishes to proceed and I agree, as there is no definite increased risk. Pt. declines d/o other serious risks of anesthesia. Consent and Attending signature: I and/or my designee have discussed the anesthesia plan, benefits, possible alternatives, parental presence at time of induction (if indicated), and clinically relevant risks that may include dental injury, unintentional awareness, and/or other complications. The patient and/or parent/legal guardian understand, and agree to proceed. All questions answered. documented in this encounter Plan of Treatment Not on file documented as of this encounter Visit Diagnoses Not on filedocumented in this encounter Administered Medications Inactive Administered Medications - up to 3 most recent administrations Medication Order MAR Action Action Date Dose Rate Site etomidate (AMIDATE) injection intravenous, Administer over 1 Minutes, As needed, Starting on Fri01/16/21 at 1227, Anesthesia Intra-op Given 01/16/2021 12:27 PM CDT 8 mg fentaNYL (SUBLIMAZE) preservative free injection intravenous, As needed, Starting on Fri01/16/21 at 1224, Anesthesia Intra-op Given 01/16/2021 1:23 PM CDT 25 mcg Given 01/16/2021 1:05 PM CDT 25 mcg Given 01/16/2021 12:24 PM CDT 50 mcg Lactated Ringer's (LR) infusion 125 mL/hr, intravenous, Continuous, Starting on Fri01/16/21 at 1115 Restarted 01/16/2021 1:45 PM CDT New Bag 01/16/2021 12:22 PM CDT 50 mL/hr lidocaine (cardiac) (XYLOCAINE) preservative free injection intravenous, As needed, Starting on Fri01/16/21 at 1227, Anesthesia Intra-op, Indications: Ventricular ArrhythmiasIndications:Ventricular Arrhythmias Given 01/16/2021 12:27 PM CDT 100 mg midazolam (VERSED) 1 mg/mL preservative free injection intravenous, Administer over 2 Minutes, As needed, Starting on Fri01/16/21 at 1222, Anesthesia Intra-op Given 01/16/2021 12:22 PM CDT 2 mg ondansetron (ZOFRAN) injection intravenous, Administer over 2 Minutes, As needed, Starting on Fri01/16/21 at 1316, Anesthesia Intra-op Given 01/16/2021 1:16 PM CDT 4 mg propofoL (DIPRIVAN) 10 mg/mL IV intravenous, As needed, Starting on Fri01/16/21 at 1227, Anesthesia Intra-op Given 01/16/2021 12:27 PM CDT 40 mg documented in this encounter Care Teams Mirror Painter Relationship Specialty Start Date End Date Unknown, Notinfile PCP - General 12/25/20 02/27/21 No, Physician 12/09/20 documented as of this encounter
--- OUTSIDE RECORDS SUMMARY | 2024-09-11 03:20 | XMS_ITS | Encounter Summary ---
Author Organization [facility] Address [address] [place] [address] Phone Care Team Providers Care Safety Grooving Machine Operator Name Role Phone Unknown, Notinfile Primary Care Provider Unavail able No, Physician Unavailable Encounter Details Date Type Department Care Team (Late st Contact Info) Description 01/24/2021 1:30 PM CDT Office Visit [facility] Ophthalmology [address] [place] [address] 1st [place] [address] Left retinal detachment (Primary Dx) Social History Tobacco Use Types [...] on file 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 documented in this encounter Progress Notes * Lindsey Nguyen MD - 01/24/2021 1:30 PM CDT Ophthalmology Clinic Note Reason for Visit Today HPI 1 wk f/u RD OS s/p PPV/EL/AFx/14% C3F8 01/16/21 Pt states he feels vision is slightly better, no pain/discomfort but has itchiness and occasional grittiness OS in the morning. No new flashes/floaters. Gtts: Tobramycin 4x/day and Predforte 4x/day Last edited by Pattie Lyles on 01/24/2021 1:51 PM. (History) ASSESSMENT/PLAN Diagnoses and all orders for this visit: Left retinal detachment (Primary) Assessment & Plan: POW1 s/p PPV/EL/AFx/14% C3F8 for traumatic VH/RRD to the left eye. Doing well. Retina attached. Stop tobramycin Taper PF: 3x/day for 1 week, 2x/day for 1 week, 1x/day for 1 week. Return to clinic in 1 month. Signs and symptoms of retinal detachment, tears and endophthalmitis, elevated pressure reviewed with patient. Altitude precautions were reviewed with patient. PLAN FOR FOLLOW-UP Return for 4-5 weeks, DFE OS with Dr. Sanchez. documented in this encounter Miscellaneous Notes * Assessment & Plan Note - Lindsey Nguyen MD - 01/24/2021 2:22 PM CDTAssociated Problem(s): Left retinal detachment POW1 s/p PPV/EL/AFx/14% C3F8 for traumatic VH/RRD to the left eye. Doing well. Retina attached. Stop tobramycin Taper PF: 3x/day for 1 week, 2x/day for 1 week, 1x/day for 1 week. Return to clinic in 1 month. Signs and symptoms of retinal detachment, tears and endophthalmitis, elevated pressure reviewed with patient. Altitude precautions were reviewed with patient. documented in this encounter Plan of Treatment Not on file documented as of this encounter Visit Diagnoses Diagnosis Left retinal detachment- Primary Unspecified retinal detachment documented in this encounter Eye Exam Visual Acuity (Snellen - Linear) Right eye Left eye Dist sc CF @ 6 Tonometry (Tonopen, 1:55 PM) Right eye Left eye Pressure 8 Pupils Dark Light Shape React APD Right eye 3 2 Round Brisk None Left eye 3 2 Round Brisk None Neuro/Psych Oriented x3: Yes Mood/Affect: Normal Dilation Left eye: 1.0% Mydriacyl @ 1 :55 PM External Exam Right eye Left eye External Normal Slit Lamp Exam Right eye Left eye Lids/Lashes trace edema Conjunctiva/Sclera mild inj, bur ied vicryl sutures Cornea Clear Anterior Chamber 1-2+ mixed cell Iris dilated Lens +NS. +pigment on ant capsule Vitreous vitrectomized, 7 0% gas Fundus Exam Right eye Left eye Disc perfused Macula flat Vessels Normal Periphery retinotomy and R T superiorly w/ barricade laser, 360 Laser. Attached. Care Teams Safety Grooving Machine Operator Relationship Specialty Start Date End Date Unknown, Notinfile PCP - General 12/25/20 02/27/21 No, Physician 12/09/20 documented as of this encounter
--- OUTSIDE RECORDS SUMMARY | 2024-09-11 03:20 | XMS_ITS | Encounter Summary ---
Author Organization [facility] Address [address] [place] [address] Phone Care Team Providers Care Vat Overhauler Name Role Phone Unknown, Notinfile Primary Care Provider Unavail able No, Physician Unavailable Encounter Details Date Type Department Care Team (Late st Contact Info) Description 01/04/2021 Telephone [facility] Ophthalmology [address] [place] [address] [place] [address] Holly Albarado COA Social History Tobacco Use Types Packs/Day Years Used Date Smoking Tobacco: Never Smokeless Tobacco: Never Alcohol Use Standard Drinks/Week Comments Yes 0 (1 standard drink = 0.6 oz pur e alcohol) Sex and Gender Information Value Date Recorded Sex Assigned at Not on file 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 Patient symptoms not worse. getting better, just not right scheduled for Retina the . * Telephone Encounter - Holly Albarado - 01/04/2021 11:03 AM CDT ----- Message from Hannah Bojorquez MD PhD sent at 01/04/2021 10:31 AM CDT ----- Regarding: RE: Follow up Agree - thanks Carlos. Holly: If symptoms are stable, please schedule him in [facility] on 01/10 or 01/17. ThanksGunjan ----- Message ----- From: Maribeth Redd MD PhD Sent: 01/04/2021 9:56 AM CDT To: Hannah Friedman MD PhD, # Subject: RE: Follow up Thank you for the update. Holly, can we please reach out to the patient now that we have his best number to set up an appointment? Previously he also was having blurry vision and floaters - if this is worsening from prior he should come in as soon as able ([facility] would be okay), but if this is stable from our last evaluation I think it is reasonable to keep his original plan for [facility] in 2 weeks from his original discharge (if Gunjan you think this is reasonable)! Sincerely, Maribeth ----- Message ----- From: Eze Camacho MD Sent: 01/04/2021 9:48 AM CDT To: Maribeth Redd MD PhD, Holly Albarado Subject: Follow up Quan, I saw a note from you about follow up for this patient. ENT saw him in clinic today and he is experiencing blurry vision and floaters. He is best reached at [phone] (Mother: Sophy). We gave himthe clinic's phone number to schedule follow up with you. Please forward to the appropriate green party if you are no longer responsible for follow up. Eze documented in this encounter Plan of Treatment Not on file documented as of this encounter Visit Diagnoses Not on filedocumented in this encounter Care Teams Vat Overhauler Relationship Specialty Start Date End Date Unknown, Notinfile PCP - General 12/25/20 02/27/21 No, Physician 12/09/20 documented as of this encounter
--- OUTSIDE RECORDS SUMMARY | 2024-09-11 03:20 | XMS_ITS | Encounter Summary ---
Author Organization [facility] Address [address] [place] [address] Phone Care Team Providers Care Irrigation Equipment Installer Name Role Phone Unknown, Darian Primary Care Provider Unavail able No, Physician Unavailable Reason for Visit * Auth/Cert Specialty Diagnoses / Procedures Referred By Dank t Referred To Contact Referral ID Status Reason Start Date Expiration Date Visits Re quested Visits Authorized [id number] 1 1 Encounter Details Date Type Department Care Team (Late st Contact Info) Description 01/03/2021 Home Care Visit [facility] [address] [address] [address] [place] [address] Blanquita Kay RN TRAVEL SCREENING CASE COMMUNICATION Social History Tobacco Use Types Packs/Day Years Used Date Smoking Tobacco: Never Smokeless Tobacco: Never Alcohol Use Standard Drinks/Week Comments Yes 0 (1 standard drink = 0.6 oz pur e alcohol) Sex and Gender Information Value Date Recorded Sex Assigned at Not on file 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
--- OUTSIDE RECORDS SUMMARY | 2024-09-11 03:20 | XMS_ITS | Encounter Summary ---
Author Organization [facility] Address [address] [place] [address] Phone Care Team Providers Care Roller Operator Name Role Phone Unknown, Darian Primary Care Provider Unavail able No, Physician Unavailable Reason for Visit * Auth/Cert Specialty Diagnoses / Procedures Referred By Dank t Referred To Contact Referral ID Status Reason Start Date Expiration Date Visits Re quested Visits Authorized [id number] 1 1 Encounter Details Date Type Department Care Team (Late st Contact Info) Description 12/26/2020 Home Care Visit [facility] Home Health [address] [address] [address] [place] [address] Blanquita Kay RN TRAVEL SCREENING CASE COMMUNICATION Social History Tobacco Use Types Packs/Day Years Used Date Smoking Tobacco: Never Smokeless Tobacco: Never Alcohol Use Standard Drinks/Week Comments Yes 0 (1 standard drink = 0.6 oz pur e alcohol) Sex and Gender Information Value Date Recorded Sex Assigned at Not on file 

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
--- OUTSIDE RECORDS SUMMARY | 2024-09-11 03:20 | XMS_ITS | Encounter Summary ---
Author Organization [facility] Address [address] [place] [address] Phone Care Team Providers Care Straddle Buggy Operator Name Role Phone Unknown, Notinfpamella Primary Care Provider Unavail able No, Physician Unavailable Reason for Visit * Auth/Cert Specialty Diagnoses / Procedures Referred By Dank t Referred To Contact Referral ID Status Reason Start Date Expiration Date Visits Re quested Visits Authorized [id number] 1 1 Encounter Details Date Type Department Care Team (Late st Contact Info) Description 12/27/[address] 

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
--- OUTSIDE RECORDS SUMMARY | 2024-09-11 03:20 | XMS_ITS | Encounter Summary ---
Author Organization [facility] Address [address] [place] [address] Phone Care Team Providers Care Apprentice Pattern Maker Name Role Phone Unknown, Notinfile Primary Care Provider Unavail able No, Physician Unavailable Reason for Visit * Reason Comments Incisional Pain * Auth/Cert Specialty Diagnoses / Procedures Referred By Dank ashley Referred To Contact Referral ID Status Reason Start Date Expiration Date Visits Re quested Visits Authorized [id number] 1 1 Encounter Details Date Type Department Care Team (Latest Contact Info) Description 01/09/2021 12:00 PM CDT Home Care Visit [facility] [address] [place] [address] Blanquita Kay RN SN NON OASIS DISCHARGE Social History Tobacco Use Types Packs/Day Years Used Date Smoking Tobacco: Never Smokeless Tobacco: Never Alcohol Use Standard Drinks/Week Comments Yes 0 (1 standard drink = 0.6 oz pur e alcohol) Sex and Gender Information Value Date Recorded Sex Assigned at Not on file 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 Gender Identity Not on file Sexual Orientation Not on file documented as of this encounter Last Filed Vital Signs Vital Sign Reading Time Taken Comments Blood Pressure 122/70 01/09/2021 1:46 PM CDT Pulse 98 01/09/2021 1:46 PM CDT Temperature 36.6 ??C (97.8 ??F) 01/09/2021 1:46 PM CD T Respiratory Rate 18 01/09/2021 1:46 PM CDT Oxygen Saturation 97% 01/09/2021 1:46 PM CDT Inhaled Oxygen Concentration - - Weight - - Height - - Body Mass Index - - documented in this encounter Plan of Treatment Not on file documented as of this encounter Visit Diagnoses Not on filedocumented in this encounter Home Health Visit - Care Plan Visit Details Visit Type -SN Non-OASIS Dis charge Discipline -Fpc Problems Problem Description Start Date Status Goals Interve ntions Wound Education and Management Disciplines: Fpc, Physical Therapy 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 12/26/2020 Active 1 goal linked to scheduled/documen corey intervention 1 goal intervention scheduled/document ed in this visit Wound Care Disciplines: Fpc, Physical Therapy #1 LEFT ARM Wound care needed 12/26/2020 Active 1 goal linked to scheduled/documen corey intervention 1 goal intervention scheduled/document ed in this visit Wound Care Disciplines: Fpc, Physical Therapy #4 RIGHT INDEX FINGER Wound care needed 12/26/2020 Active 1 goal linked to scheduled/documen corey intervention 1 goal intervention scheduled/document ed in this visit Homebound Status Disciplines: Fpc, Physical Therapy Patient's homebound status 12/26/2020 Active 1 goal linked to scheduled/documen corey intervention 1 goal intervention scheduled/document ed in this visit Monitor patient's vital signs every home health visit Disciplines: Fpc, Physical Therapy Monitor patient's vital signs every home health visit. 12/26/2020 Active 1 goal linked to scheduled/documen corey intervention 1 goal intervention scheduled/document ed in this visit Fall Precautions/Saf ety Concerns Disciplines: Fpc, Physical Therapy Alteration in safety 12/26/2020 Active 1 goal linked to scheduled/documen corey intervention 1 goal intervention scheduled/document ed in this visit Wound Care Disciplines: Fpc, Physical Therapy #3 LEFT POSTERIOR THIGH SURGICAL SITE Wound care needed 12/26/2020 Active 1 goal linked to scheduled/documen corey intervention 1 goal intervention scheduled/document ed in this visit Wound Care Disciplines: Fpc, Physical Therapy Wound care needed #4 RIGHT HAND INDEX FINGER 12/26/2020 Active 1 goal linked to scheduled/documen corey intervention 1 goal intervention scheduled/document ed in this visit Wound Care Disciplines: Fpc, Physical Therapy #5 LEFT FOOT Wound care needed 12/26/2020 Active 1 goal linked to scheduled/documen corey intervention 1 goal intervention scheduled/document ed in this visit Wound Care Disciplines: Fpc, Physical Therapy #6 RIGHT LEG Wound care needed 12/26/2020 Active 1 goal linked to scheduled/documen corey intervention 1 goal intervention scheduled/document ed in this visit Wound Care Disciplines: Fpc, Physical Therapy #7 RIGHT ANKLE Wound care needed 12/26/2020 Active 1 goal linked to scheduled/documen corey intervention 1 goal intervention scheduled/document ed in this visit Goals Goal Associated Problem Outcome Goal Met? Visit Notes Knowledgeable on Woundcare Description: Patient/caregiver will be knowledgeable on woundcare procedure, wound healing and when to seek medical attention by CALLING SN OR MD WITH CONCERNS. Wound Education and Management No Progression towards healing Description: Wound show progression towards healing by DISCHARGE Wound Care No Progression towards healing Description: Wound show progression towards healing by DISCHARGE Wound Care No Patient recieves care at the most appropriate care setting Description: Patient receives care at the most appropriate care setting. Homebound Status No Measure vital signs during every home health visit during episode of care Description: Home senior sharepoint developer to measure vital signs during every home health visit during episode of care. Monitor patient's vital signs every home health visit No Demonstrate use of safety precautions Description: Demonstrate use of safety precautions Fall Precautions/Safety Concerns No Progression towards healing Description: Wound show progression towards healing by DISCHARGE Wound Care No Progression towards healing Description: Wound show progression towards healing by DISCHARGE Wound Care No Progression towards healing Description: Wound show progression towards healing by DISHCARGE Wound Care No Progression towards healing Description: Wound show progression towards healing by DISCHARGE Wound Care No Progression towards healing Description: Wound show progression towards healing by DISCHARGE Wound Care No Interventions Intervention Associated Problem/Goal Status Variance Visit Notes Demonstration of Wound Care Description: Patient/caregiver will complete a return demonstration on wound care to SN or PT. Observed return wound care on 12/26/20 Problem:Wound Education and Management Goal:Knowledgeable on Woundcare Completed Patient/caregiver will complete a return demonstration on wound care to SN or PT. Observed return wound care on 12/26/20 PT TO LEAVE INCISIONS OPEN TO AIR, MAY SHOWER AND PAT THEM DRY, PER MD APT RECORDS. PT UNDERSTANDS. Perform dressing change Description: Perform dressing change: Site #1 LEFT ARM to perform dressing change as of 12/26/20 Frequency DAILY and PRN for excess drainage or dislodgement of dressing. Wound care as follows: KEEP DRY , apply GAUZE To wound bed, WRAP WITH GAUZE AND SECURE WITH TAPE OF CHOICE PER SN OR MD Problem:Wound Care Goal:Progression towards healing Completed PT LEAVING OPEN TO AIR PER MD OFFICE NOTE Perform dressing change Description: Perform dressing change: Site #4 RIGHT INDEX FINGER SN OR CAREGIVER to perform dressing change as of 12/26/20 Frequency DAILY and PRN for excess drainage or dislodgement of dressing. Wound care as follows: KEEP CLEAN AND DRY apply GAUZE to wound bed, WRAP WITH GAUZE and secure with TAPE OF CHOICE. Problem:Wound Care Goal:Progression towards healing Completed PT LEAVING OPEN TO AIR PER MD OFFICE VISIT Homebound Status Description: Patient is homebound due [...] health visit during episode of care Completed [place] Fall Precautions Description: Assess patient safety Problem:Fall Precautions/Safety Concerns Goal:Demonstrate use of safety precautions Completed Assess patient safety Perform dressing change Description: Perform dressing change: SITE #3 LEFT POSTERIOR THIGH SURGICAL SITE SN OR CAREGIVER to perform dressing change as of 12/26/20 Frequency DAILY and PRN for excess drainage or dislodgement of dressing. Wound care as follows: KEEP WOUND DRY , apply GAUZE to wound bed, AND SECURE WITH TAPE OF CHOICE. Problem:Wound Care Goal:Progression towards healing PT LEAVING OPEN TO AIR PER MD OFFICE Perform dressing change Description: Perform dressing change: Site #4 RIGHT HAND INDEX FINGER SN OR CAREGIVER } to perform dressing change as of 12/26/20 Frequency DAILY and PRN for excess drainage or dislodgement of dressing. Wound care as follows: KEEP CLEAN AND DRY AND MAY LEAVE OPEN TO AIR. Problem:Wound Care Goal:Progression towards healing Completed PT LEAVING OPEN TO AIR PER MD OFFICE APT Perform dressing change Description: Perform dressing change: #5 LEFT FOOT NON-REMOVEABLE SPLINT AND WRAP IN PLACE. Problem:Wound Care Goal:Progression towards healing Completed PT TO LEAVE OPEN TO AIR PER MD OFFICE VISIT Perform dressing change Description: Perform dressing change: Site #6 RIGHT LEG SN OR CAREGIVER, NON-REMOVEABLE CAST IN PLACE. KEEP CLEAN AND DRY Problem:Wound Care Goal:Progression towards healing Completed PT LEAVING OPEN TO AIR PER MD OFFICE VISIT Perform dressing change Description: Perform dressing change: Site #7 RIGHT ANKLE SN OR CAREGIVER KEEP CAST IN PLACE DRY AND INTACT. Problem:Wound Care Goal:Progression towards healing Completed PT LEAVING OPEN TO AIR PER MD OFFICE documented in this encounter Care Teams Apprentice Pattern Maker Relationship Specialty Start Date End Date Unknown, Notinfile PCP - General 12/25/20 02/27/21 No, Physician 12/09/20 documented as of this encounter
--- OUTSIDE RECORDS SUMMARY | 2024-09-11 03:20 | XMS_ITS | Encounter Summary ---
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 Angle Stardrive T8 Screw Bone - [id number] - Implanted (Right) Ankle Inventory item: SYNTHES . 2.7mm 42mm Self Tap Lock Variable Angle Stardrive T8 Screw Bone Model/Cat number: .[id number] Cook Boat: Synthes As of 12/21/2020 Status: Implanted Synthes 204.870 3.5mm 6mm 70mm 2.5mm Self Tap Small Hexagonal Socket Low Profile - [id number] - Implanted (Right) Ankle Inventory item: SYNTHES 204.870 3.5mm 6mm 70mm 2.5mm Self Tap Small Hexagonal Socket Low Profile Model/Cat number: [id number] Cook Boat: Synthes As of 12/21/2020 Status: Implanted Synthes 204.875 3.5mm 6mm 75mm 2.5mm Self Tap Small Hexagonal Socket Low Profile - [id number] - Implanted (Right) Ankle Inventory item: SYNTHES 204.875 3.5mm 6mm 75mm 2.5mm Self Tap Small Hexagonal Socket Low Profile Model/Cat number: [id number] Cook Boat: Synthes As of 12/21/2020 Status: Implanted Synthes 204.855 3.5mm 6mm 55mm 2.5mm Self Tap Small Hexagonal Socket Low Profile - [id number] - Implanted (Right) Ankle Inventory item: SYNTHES 204.855 3.5mm 6mm 55mm 2.5mm Self Tap Small Hexagonal Socket Low Profile Model/Cat number: [id number] Cook Boat: Synthes As of 12/21/2020 Status: Implanted SKIN Piercings Remaining: No Wound (LDAs) Type of Wound (LDA): (bilateral ankle surgical incisions ) SCREENINGS Alfreda index score: 80 NUTRITION PATIENT CARE PLANNING Advance Directives (For Healthcare) Advance Directive: Patient does not have advance directive Information Provided on Healthcare Directives: Yes Communication/Dye House Supervisor Needs Communication Needs: Glasses Assistive Devices/DME: Eyeglasses Hearing - Right Ear: Functional Hearing - Left Ear: Functional Discharge Planning Type of Residence: Private residence Living Arrangements: Children Support Systems: Parent(mom to be newspaper delivery driver and caregiver) Patient expects to be discharged to:: Private residence COVID Screening Covid-19 Screening In the last 10 days have you had any new or worsening cough, SOB, fever (>=100F), body aches, loss of taste or smell, diarrhea or vomiting, or sore throat?: No Have you had close contact with anyone with confirmed or suspected COVID-19 in the past 2 weeks?: No Do you live in or work in a congregate living facility (ex. assisted living/fdc facility, chcf, penitentiary)?: No Have you tested positive for COVID-19 within the last 14 days?: No Have you previously tested positive for COVID-19? No Have you had a COVID -19 exposure within the past 14 days? No Were both or all people exposed wearing masks (cloth, isolation, surgical or N95)? N/A TESTING PLAN-See Instructions for plan We recommend you Self-Isolate after COVID Testing: Stay at home, if possible until your surgery date. Maintain a 6 foot distance from other people (social distancing). Avoid touching your eyes, nose and mouth with unwashed hands. Wash your hands often with soap and water for at least 20 seconds. Use an alcohol- based hand metal rolling mill operator that contains at least 60% alcohol if soap and water are not available. ADDITIONAL COMMENTS/ FOLLOW UP * Pre-Procedure Instructions - Melisa Lugo - 01/12/2021 5:04 PM CDT PRE-SURGICAL INSTRUCTIONS ??? General Information ?? Surgery location provided to patient. ?? Arrival time and surgical time will be provided by your surgeon. ?? Wear something clean, loose, comfortable and easy to get in and out of. ?? Leave your valuables and any jewelry at home (No metal or piercings are allowed in the operatingroom) ?? Bring your insurance card, a photo ID (like a [employer]pper's license) and a method of payment for any insurance copay, deductible, or copay for discharge medications. ?? Bring a complete, up to date list of all of your medications including any over the counter medications or supplements you may take. ? How To Prepare Your Skin For Surgery Antiseptic/antibacterial soap will decrease the amount of germs on your skin. It is important to minimize the risk of getting an infection by doing the following: ?? Change all the linens on the bed the night before surgery so you are sleeping on clean fresh sheets and pillowcases. ?? Shower the evening before and the morning of surgery with an antibacterial soap such as Dial or a surgical soap known as chlorhexidine (Hibiclens). You can purchase this soap at any pharmacy or department store or come by our CPAP clinic and we will give it to you free of charge. Do not use thissoap on your face or hair. ?? Wash your hair and face with your regular shampoo (no conditioners) and facial cleanser. ?? Take a shower using ?? cup (2 oz.) of antiseptic soap applied to a clean fresh washcloth. Scrub your entire body from the neck down. If you can't reach the surgical site, such as your back, have someone help you with your shower. Step out of the water and leave soap on your skin for 2 minutes prior to rinsing off. Rinse thoroughly and dry yourself off with a clean fresh dry towel. ?? Wear clean clothes or pajamas to sleep in and on morning of surgery. ?? Nothing extra on the skin or hair such as deodorant, makeup, hair products, lotions, powders, Vaseline, creams, or perfumes the evening before and the morning of surgery. ?? The morning of the surgery repeat the shower process with the remaining ?? cup (2 oz.) of surgical scrub using another fresh wash cloth and towel. ?? Do not shave the morning of surgery. ?? REMEMBER no deodorant, make-up, lotions, powders, creams, Vaseline, oils, conditioners or hair products the morning of the surgery. ??? Eye Surgery Process ?? Before the surgery, you will be asked to change into a gown. ?? As you get ready for your surgery; your nurse will ask you questions about your medical history and review your medications with you. ?? An IV will be placed so that we may administer medication to keep you comfortable. ?? You will meet your surgical team. ?? You will be taken by stretcher to the operating room for your surgery. ?? After your surgery, you will come to the recovery area. ?? A Fall Risk band had been placed on your arm to remind you that you are at higher risk for falling after having eye surgery. You can remove this after 24 hours. ?? Before you leave, we will review your medications with you and special instructions. COVID TESTING PLAN COVID TEST not recommended by CPAP related to procedure and anesthesia type. If you have COVID testing or should have COVID testing for your surgery/procedure, please read below section: If you need to reschedule your COVID test to a different location or if your surgery gets rescheduled, you MUST call [phone] Friday-Friday 8am-4:30pm to get your COVID testing rescheduled or your lab order will not be available at Testing Sites. COVID Testing is only valid for up to 96 hours prior to surgery date, unless otherwise specified. If you are unable to reach staff at the above phone number, please call the CPAP Staff at [phone]. This number cannot order a lab test, but can attempt to contact the above number/staff to assist you. We are available Friday-Friday 8am-4:30pm . We recommend you Self-Isolate after COVID Testing: Stay at home, if possible until your surgery date. Maintain a 6 foot distance from other people (social distancing). Avoid touching your eyes, nose and mouth with unwashed hands. Wash your hands often with soap and water for at least 20 seconds. Use an alcohol- based hand metal rolling mill operator that contains at least 60% alcohol if soap and water are not available. All patients should read below section: All visitors/patients are being asked to wear a clean mask when entering the hospital. COVID 19 Updates & Visitor Policy: Please access [email or web address] for the most updated information. Information on [facility]: Please view [email or web address] (Patient & Visitor Information) for additional details regarding Advanced Directive forms, AWARE, directions, parking information, lodging, Internet access, dining and more. Information on [facility]: Please view [email or web address] (Patient and Visitor Information) for parking/directions and more. For MyChart information, to activate account or password recovery, please go to [email or web address] or call [phone] (toll-free: [phone]). Surgery Times: For patients having surgery @ [facility], [facility] or [facility], if your surgeon's office has not notified you of your surgery time by NOON THE BUSINESS DAY BEFORE your surgery, please call [phone] and ask for your surgeon'soffice documented in this encounter Plan of Treatment Not on file documented as of this encounter Procedures Procedure Name Priority Date/Time Associated Diagnosis Comments EXCHANGE GAS FLUID 01/16/2021 12 :20 PM CDT Left retinal detachment EXCHANGE - AIR/FLUID 01/16/2021 12:20 PM CDT Left retinal detachment ENDOLASER 01/16/2021 12:20 PM CDT Left retinal detachment VITRECTOMY - 25 GAUGE 01/16/2021 12:20 PM CDT Left retinal detachment documented in this encounter Visit Diagnoses Diagnosis Left retinal detachment- Primary Unspecified retinal detachment Left retinal detachment Unspecified retinal detachment Left retinal detachment Unspecified retinal detachment documented in this encounter Admitting Diagnoses Diagnosis Left retinal detachment Unspecified retinal detachment documented in this encounter Administered Medications Inactive Administered Medications - up to 3 most recent administrations Medication Order MAR Action Action Date Dose Rate Site balanced salt soln no.2 irrig. (BSS) intraocular solution As needed, Starting on Fri01/16/21 at 1248, Intra-Op Given 01/16/2021 12:48 PM CDT 15 mL Left Eye balanced salt soln no.2 irrig. (BSS) intraocular solution As needed, Starting on Fri01/16/21 at 1310, Intra-Op Given 01/16/2021 12:48 PM CDT 500 mL Left Eye famotidine (PEPCID) injection 20 mg 20 mg, intravenous, Administer over 2 Minutes, Once, On Fri01/16/21 at 1200, For 1 dose, Phase I & Post-op Floor Given 01/16/2021 11:54 AM CDT 20 mg Lactated Ringer's (LR) infusion 125 mL/hr, intravenous, Continuous, Starting on Fri01/16/21 at 1115 Restarted 01/16/2021 1:45 PM CDT New Bag 01/16/2021 12:22 PM CDT 50 mL/hr lidocaine 1%, bupivacaine 0.375% preservative free ophthalmic solution (total volume 5 mL) As needed, Starting on Fri01/16/21 at 1227, Intra-Op Given 01/16/2021 12:45 PM CDT 3.5 mL Le ft Eye Given 01/16/2021 12:27 PM CDT 5 mL L eft Eye phenylephrine (MYDFRIN) 2.5 % ophthalmic solution 1 drop 1 drop, left eye, Every 5 min, First dose on Fri01/16/21 at 1115, For 3 doses, Pre-Op, Indications: Perioperative MydriasisIndications:Perioperative Mydriasis Given 01/16/2021 11:39 AM CDT 1 drop Left Eye Given 01/16/2021 11:07 AM CDT 1 drop L eft Eye Given 01/16/2021 10:56 AM CDT 1 drop L eft Eye sodium citrate-citric acid (CYTRA 2) 100-66.8 mg/mL oral solution 30 mL 30 mL, oral, Once, On Fri01/16/21 at 1200, For 1 dose, Patient to chug down , may follow with 30 cc H2O. Given 01/16/2021 11:43 AM CDT 30 mL tetracaine (PF) (ALTACAINE) 0.5 % ophthalmic solution As needed, Starting on Fri01/16/21 at 1231, Intra-Op, Indications: Administration of Corneal AnesthesiaIndications:Admini stration of Corneal Anesthesia Given 01/16/2021 12:31 PM CDT 2 drops Left Eye tobramycin-dexAMETHasone (TOBRADEX) 0.3-0.1 % ophthalmic ointment As needed, Starting on Fri01/16/21 at 1320, Intra-Op Given 01/16/2021 1:20 PM CDT 1 application (deactivated) Left Eye triamcinolone (KENALOG) 40 mg/mL injection As needed, Starting on Fri01/16/21 at 1248, Intra-Op Given 01/16/2021 12:48 PM CDT 40 mg Left Eye tropicamide (MYDRIACYL) 1 % ophthalmic solution 1 drop 1 drop, left eye, Every 5 min, First dose on Fri01/16/21 at 1115, For 3 doses, Pre-Op, Indications: Perioperative MydriasisIndications:Periope rative Mydriasis Given 01/16/2021 11:39 AM CDT 1 drop Left Eye Given 01/16/2021 11:08 AM CDT 1 drop L eft Eye Given 01/16/2021 10:56 AM CDT 1 drop L eft Eye documented in this encounter Discontinued Medications Medication Sig Discontinue Reason Start Date End Da te oxyCODONE (ROXICODONE) 10 mg tabletIndications:Pain Take 1 tablet (10 mg total) by mouth every 4 (four) hours as needed for pain Error 12/25/2020 01/12/2021 senna-docusate (PERICOLACE) 8.6-50 mg Take 2 tablets by mouth 2 (two) times a day as needed for constipation Error 12/25/2020 01/12/2021 polyvinyl alcohol-povidone (REFRESH CLASSIC) 1.4-0.6 % dropperette Administer 1 drop into both eyes 4 (four) times a day as needed for dry eyes Error 12/25/2020 01/12/2021 carboxymethylcellulose -glycern (Refresh Optive) 0.5-0.9 % dropsIndications:Dry Eye Administer 1 drop into the left eye as needed Error 01/12/2021 documented as of this encounter Historical Medications * This list may reflect changes made after this encounter. polyvinyl alcohol-povidone (REFRESH CLASSIC) 1.4-0.6 % dropperette Administer 1 drop into both eyes as needed for dry eyes 1 carboxymethylcell ulose-glycern (Refresh Optive) 0.5-0.9 % dropsIndications: Dry Eye Administer 1 drop into the left eye as needed 1 erythromycin (ILOTYCIN) ophthalmic ointment Apply to left eye 2 (two) times a day 1 added in this encounter Active and Recently Administered Medications Times are shown in CDT. Scheduled Medication Order 01/14/2021 01/15/2021 01/16/2021 acetaminophen (TYLENOL) tablet 1,000 mg 1,000 mg, oral, Once, On Fri01/16/21 at 1115, For 1 dose, Phase I, When able to tolerate PO., Indications: Pain, Pain 1115 (Due) famotidine (PEPCID) injection 20 mg (COMPLETED) 20 mg, intravenous, Administer over 2 Minutes, Once, On Fri01/16/21 at 1200, For 1 dose, Phase I & Post-op Floor 1154 (Given - Provid er: Verona Serra RN) phenylephrine (MYDFRIN) 2.5 % ophthalmic solution 1 drop (COMPLETED) 1 drop, left eye, Every 5 min, First dose on Fri01/16/21 at 1115, For 3 doses, Pre-Op, Indications: Perioperative Mydriasis 1056 (Given - Provid er: Verona Overy, RN)1107 (Given - Provider: Verona Serra RN)1139 (Given - Provider: Verona Serra RN) sodium citrate-citric acid (CYTRA 2) 100-66.8 mg/mL oral solution 30 mL (COMPLETED) 30 mL, oral, Once, On Fri01/16/21 at 1200, For 1 dose, Patient to chug down , may follow with 30 cc H2O. 1143 (Given - Provid er: Verona Serra RN) tropicamide (MYDRIACYL) 1 % ophthalmic solution 1 drop (COMPLETED) 1 drop, left eye, Every 5 min, First dose on Fri01/16/21 at 1115, For 3 doses, Pre-Op, Indications: Perioperative Mydriasis 1056 (Given - Provid er: Verona Serra RN)1108 (Given - Provider: Verona Serra RN)1139 (Given - Provider: Verona Serra RN) Continuous Medication Order 01/14/2021 01/15/2021 01/16/2021 Lactated Ringer's (LR) infusion 125 mL/hr, intravenous, Continuous, Starting on Fri01/16/21 at 1115 1222 (New Bag - Prov ider: Rafa Brooks CRNA)1344 (Paused - Provider: Rafa Brooks CRNA - Comment: Switch to gravity)1345 (Restarted - Provider: Rafa Brooks CRNA) PRN Medication Order 01/14/2021 01/15/2021 01/16/2021 balanced salt soln no.2 irrig. (BSS) intraocular solution (CANCELED) As needed, Starting on Fri01/16/21 at 1248, Intra-Op 1248 (Given - Provid er: Rafa aSnchez MD PhD) balanced salt soln no.2 irrig. (BSS) intraocular solution (CANCELED) As needed, Starting on Fri01/16/21 at 1310, Intra-Op 1248 (Given - Provid er: Rafa Sanchez MD PhD) lidocaine 1%, bupivacaine 0.375% preservative free ophthalmic solution (total volume 5 mL) (CANCELED) As needed, Starting on Fri01/16/21 at 1227, Intra-Op 1227 (Given - Provid er: Rafa Sanchez MD PhD)1245 (Given - Provider: Lindsey Nguyen MD) naloxone (NARCAN) 0.4 mg/mL injection 0.04-0.4 mg 0.04-0.4 mg, intravenous, Once as needed, other, excessive sedation/respiratory depression, Starting on Fri01/16/21 at 1040, For 1 dose, Phase I, Dilute 0.4 mg with 9 mL NS (final concentration 0.04 mg/mL). For respiratory depression (respiratory rate less than 6), administer 0.4 mg IVP over 30 seconds. For excessive sedation administer 0.04 mg (1 mL) every 1 minute until desired level of alertness. For IV, administer over 30 seconds., Indications: Opioid Toxicity tetracaine (PF) (ALTACAINE) 0.5 % ophthalmic solution (CANCELED) As needed, Starting on Fri01/16/21 at 1231, Intra-Op, Indications: Administration of Corneal Anesthesia 1231 (Given - Provid er: Rafa Sanchez MD PhD) tobramycin-dexAMETHasone (TOBRADEX) 0.3-0.1 % ophthalmic ointment (CANCELED) As needed, Starting on Fri01/16/21 at 1320, Intra-Op 1320 (Given - Provid er: Rafa Sanchez MD PhD - Comment: end of case) triamcinolone (KENALOG) 40 mg/mL injection (CANCELED) As needed, Starting on Fri01/16/21 at 1248, Intra-Op 1248 (Given - Provid er: Rafa Sanchez MD PhD - Comment: mixed with 4 ml BSS) documented in this encounter Orders Medications Ordered That Mynor ht Not Have Been Administered Count Last Ordered Date First Ordered Date acetaminophen (TYLENOL) tablet 1,000 mg 1 0 01/16/2021 Lactated Ringer's (LR) infusion 1 naloxone (NARCAN) 0.4 mg/mL injection 0.04-0.4 mg 1 01/16/2021 sodium chloride 0.9% flush 0.5-20 mL 2 12/30 documented in this encounter Care Teams Sample Sewer Relationship Specialty Start Date End Date Unknown, Notinfile PCP - General 12/25/20 02/27/21 No, Physician 12/09/20 documented as of this encounter
--- OUTSIDE RECORDS SUMMARY | 2024-09-11 03:20 | XMS_ITS | Encounter Summary ---
Author Organization [facility] Address [address] [place] [address] Care Team Providers Care Finisher Wallboard And Plasterboard Name Role Phone No, Physician Unavailable No, Physician Primary Care Provider [phone] Reason for Referral * Diagnostic Imaging (Routine) - Closed Specialty Diagnoses / Procedures Referred By Contac t Referred To Contact Diagnoses Open displaced fracture of body of right calcaneus with routine healing, subsequent encounter Procedures XR Calcaneus Right 2 or More Views No Thomas MD Phone: tel: [facility] Referral ID Status Reason Start Date Expiration Date Visits Re quested Visits Authorized [id number] Closed 02/22/2021 03/24/2022 1 1 * Diagnostic Imaging (Routine) - Closed Specialty Diagnoses / Procedures Referred By Contac t Referred To Contact Diagnoses Closed nondisplaced fracture of left calcaneus with routine healing, unspecified portion of calcaneus, subsequent encounter Procedures XR Calcaneus Left 2 or More Views No Thomas MD Phone: tel: [facility] Referral ID Status Reason Start Date Expiration Date Visits Re quested Visits Authorized [id number] Closed 02/22/2021 03/24/2022 1 1 * Diagnostic Imaging (Routine) - Closed Specialty Diagnoses / Procedures Referred By Contac t Referred To Contact Diagnoses Pilon fracture of right tibia, closed, initial encounter Procedures XR Ankle Right 3 or More Views No Thomas MD Phone: tel: [facility] Referral ID Status Reason Start Date Expiration Date Visits Re quested Visits Authorized [id number] Closed 02/22/2021 03/24/2022 1 1 Reason for Visit * Diagnostic Imaging (Routine) - Closed Specialty Diagnoses / Procedures Referred By Contac t Referred To Contact Diagnoses Pilon fracture of right tibia, closed, initial encounter Procedures XR Ankle Right 3 or More Views No Thomas MD Phone: tel: [facility] Referral ID Status Reason Start Date Expiration Date Visits Re quested Visits Authorized [id number] Closed 02/22/2021 03/24/2022 1 1 Encounter Details Date Type Department Care Team (Latest Contact Info) Description 02/28/2021 1:48 PM CDT - 02/28/2021 11:59 PM CDT Hospital Encounter [facility] [address] [place] [address] No Thomas MD [address] [facility] [address] [place] [address] Pilon fracture of right tibia, closed, initial encounter; Closed nondisplaced fracture of left calcaneus with routine healing, unspecified portion of calcaneus, subsequent encounter; Open displaced fracture of body of [...] on file 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 Gender Identity Not on file Sexual Orientation [...] CALCANEUS RIGHT 2 OR MORE VIEWS Routine 02/28/2021 2:02 PM CDT Open displaced fracture of body of right calcaneus with routine healing, subsequent encounter XR CALCANEUS LEFT 2 OR MORE VIEWS Routine 02/28/2021 2:02 PM CDT Closed nondisplaced fracture of left calcaneus with routine healing, unspecified portion of calcaneus, subsequent encounter XR ANKLE RIGHT 3 OR MORE VIEWS Routine 02/28/2021 2:02 PM CDT Pilon fracture of right tibia, closed, initial encounter documented in this encounter Results * XR Calcaneus Right 2 or More Views (02/28/2021 2:02 PM CDT) Anatomical Region Laterality Modality Lower Extremities, Foot Right Computed Radiography 02/28/2021 2:22 PM CDT Impressions 02/28/2021 2:25 PM CDT 1. Healing reduced and internally fixated right distal tibial shaft fracture. 2. Healing, reduced, internally fixated, and grafted comminuted intra-articular fracture of the right calcaneus. 3. Healing, reduced and internally fixated comminuted intra-articular fracture of the left calcaneus. 4. Nondisplaced intra-articular fracture of the left fifth metatarsal base. Dictated by: Gray Pace M.D. The radiology attending physician has personally reviewed this study, and had reviewed and/or edited this written report and agrees with it. Electronically signed by: Abdiel Umanzor M.D. Narrative 02/28/2021 2:25 PM CDT EXAMINATION: XR CALCANEUS RIGHT 2 OR MORE VIEWS, XR ANKLE RIGHT 3 OR MORE VIEWS, XR CALCANEUS LEFT 2 OR MORE VIEWS HISTORY: Fracture follow-up FINDINGS: 2 views of the right calcaneus, 2 views of the left calcaneus, and 3 views of the right ankle are submitted for interpretation with comparison to 12/21/2020, 12/19/2020, and 12/10/2020. Right ankle/calcaneus: There is a healing, reduced and internally fixated distal tibial shaft fracture. There is a healing, reduced, internally fixated, and grafted intra-articular fracture of the right calcaneus. The ankle mortise is maintained on these nonweightbearing views. The talar dome is intact. There is soft tissue swelling about the ankle. Left calcaneus: There is a healing, reduced and internally fixated comminuted intra-articular left calcaneal fracture. There is a nondisplaced intra-articular left fifth metatarsal base fracture. There is mild Achilles tendinopathy. Procedure Note Abdiel Umanzor MD - 02/28/2021 EXAMINATION: XR CALCANEUS RIGHT 2 OR MORE VIEWS, XR ANKLE RIGHT 3 OR MORE VIEWS, XR CALCANEUS LEFT 2 OR MORE VIEWS HISTORY: Fracture follow-up FINDINGS: 2 views of the right calcaneus, 2 views of the left calcaneus, and 3 views of the right ankle are submitted for interpretation with comparison to 12/21/2020, 12/19/2020, and 12/10/2020. Right ankle/calcaneus: There is a healing, reduced and internally fixated distal tibial shaft fracture. There is a healing, reduced, internally fixated, and grafted intra-articular fracture of the right calcaneus. The ankle mortise is maintained on these nonweightbearing views. The talar dome is intact. There is soft tissue swelling about the ankle. Left calcaneus: There is a healing, reduced and internally fixated comminuted intra-articular left calcaneal fracture. There is a nondisplaced intra-articular left fifth metatarsal base fracture. There is mild Achilles tendinopathy. IMPRESSION: 1. Healing reduced and internally fixated right distal tibial shaft fracture. 2. Healing, reduced, internally fixated, and grafted comminuted intra-articular fracture of the right calcaneus. 3. Healing, reduced and internally fixated comminuted intra-articular fracture of the left calcaneus. 4. Nondisplaced intra-articular fracture of the left fifth metatarsal base. Dictated by: Gray Pace M.D. The radiology attending physician has personally reviewed this study, and had reviewed and/or edited this written report and agrees with it. Electronically signed by: Abdiel Umanzor M.D. us No Thomas MD IMG XR PROCEDURES Final Resu lt * XR Calcaneus Left 2 or More Views (02/28/2021 2:02 PM CDT) Anatomical Region Laterality Modality Lower Extremities, Foot Left Computed Radiography 02/28/2021 2:22 PM CDT Impressions 02/28/2021 2:25 PM CDT 1. Healing reduced and internally fixated right distal tibial shaft fracture. 2. Healing, reduced, internally fixated, and grafted comminuted intra-articular fracture of the right calcaneus. 3. Healing, reduced and internally fixated comminuted intra-articular fracture of the left calcaneus. 4. Nondisplaced intra-articular fracture of the left fifth metatarsal base. Dictated by: Gray Pace M.D. The radiology attending physician has personally reviewed this study, and had reviewed and/or edited this written report and agrees with it. Electronically signed by: Abdiel Umanzor M.D. Narrative 02/28/2021 2:25 PM CDT EXAMINATION: XR CALCANEUS RIGHT 2 OR MORE VIEWS, XR ANKLE RIGHT 3 OR MORE VIEWS, XR CALCANEUS LEFT 2 OR MORE VIEWS HISTORY: Fracture follow-up FINDINGS: 2 views of the right calcaneus, 2 views of the left calcaneus, and 3 views of the right ankle are submitted for interpretation with comparison to 12/21/2020, 12/19/2020, and 12/10/2020. Right ankle/calcaneus: There is a healing, reduced and internally fixated distal tibial shaft fracture. There is a healing, reduced, internally fixated, and grafted intra-articular fracture of the right calcaneus. The ankle mortise is maintained on these nonweightbearing views. The talar dome is intact. There is soft tissue swelling about the ankle. Left calcaneus: There is a healing, reduced and internally fixated comminuted intra-articular left calcaneal fracture. There is a nondisplaced intra-articular left fifth metatarsal base fracture. There is mild Achilles tendinopathy. Procedure Note Abdiel Umanzor MD - 02/28/2021 EXAMINATION: XR CALCANEUS RIGHT 2 OR MORE VIEWS, XR ANKLE RIGHT 3 OR MORE VIEWS, XR CALCANEUS LEFT 2 OR MORE VIEWS HISTORY: Fracture follow-up FINDINGS: 2 views of the right calcaneus, 2 views of the left calcaneus, and 3 views of the right ankle are submitted for interpretation with comparison to 12/21/2020, 12/19/2020, and 12/10/2020. Right ankle/calcaneus: There is a healing, reduced and internally fixated distal tibial shaft fracture. There is a healing, reduced, internally fixated, and grafted intra-articular fracture of the right calcaneus. The ankle mortise is maintained on these nonweightbearing views. The talar dome is intact. There is soft tissue swelling about the ankle. Left calcaneus: There is a healing, reduced and internally fixated comminuted intra-articular left calcaneal fracture. There is a nondisplaced intra-articular left fifth metatarsal base fracture. There is mild Achilles tendinopathy. IMPRESSION: 1. Healing reduced and internally fixated right distal tibial shaft fracture. 2. Healing, reduced, internally fixated, and grafted comminuted intra-articular fracture of the right calcaneus. 3. Healing, reduced and internally fixated comminuted intra-articular fracture of the left calcaneus. 4. Nondisplaced intra-articular fracture of the left fifth metatarsal base. Dictated by: Gray Pace M.D. The radiology attending physician has personally reviewed this study, and had reviewed and/or edited this written report and agrees with it. Electronically signed by: Abdiel Umanzor M.D. us No Thomas MD IMG XR PROCEDURES Final Resu lt * XR Ankle Right 3 or More Views (02/28/2021 2:02 PM CDT) Anatomical Region Laterality Modality Lower Extremities, Ankle Right Compute d Radiography 02/28/2021 2:22 PM CDT Impressions 02/28/2021 2:25 PM CDT 1. Healing reduced and internally fixated right distal tibial shaft fracture. 2. Healing, reduced, internally fixated, and grafted comminuted intra-articular fracture of the right calcaneus. 3. Healing, reduced and internally fixated comminuted intra-articular fracture of the left calcaneus. 4. Nondisplaced intra-articular fracture of the left fifth metatarsal base. Dictated by: Gray Pace M.D. The radiology attending physician has personally reviewed this study, and had reviewed and/or edited this written report and agrees with it. Electronically signed by: Abdiel Umanzor M.D. Narrative 02/28/2021 2:25 PM CDT EXAMINATION: XR CALCANEUS RIGHT 2 OR MORE VIEWS, XR ANKLE RIGHT 3 OR MORE VIEWS, XR CALCANEUS LEFT 2 OR MORE VIEWS HISTORY: Fracture follow-up FINDINGS: 2 views of the right calcaneus, 2 views of the left calcaneus, and 3 views of the right ankle are submitted for interpretation with comparison to 12/21/2020, 12/19/2020, and 12/10/2020. Right ankle/calcaneus: There is a healing, reduced and internally fixated distal tibial shaft fracture. There is a healing, reduced, internally fixated, and grafted intra-articular fracture of the right calcaneus. The ankle mortise is maintained on these nonweightbearing views. The talar dome is intact. There is soft tissue swelling about the ankle. Left calcaneus: There is a healing, reduced and internally fixated comminuted intra-articular left calcaneal fracture. There is a nondisplaced intra-articular left fifth metatarsal base fracture. There is mild Achilles tendinopathy. Procedure Note Abdiel Umanzor MD - 02/28/2021 EXAMINATION: XR CALCANEUS RIGHT 2 OR MORE VIEWS, XR ANKLE RIGHT 3 OR MORE VIEWS, XR CALCANEUS LEFT 2 OR MORE VIEWS HISTORY: Fracture follow-up FINDINGS: 2 views of the right calcaneus, 2 views of the left calcaneus, and 3 views of the right ankle are submitted for interpretation with comparison to 12/21/2020, 12/19/2020, and 12/10/2020. Right ankle/calcaneus: There is a healing, reduced and internally fixated distal tibial shaft fracture. There is a healing, reduced, internally fixated, and grafted intra-articular fracture of the right calcaneus. The ankle mortise is maintained on these nonweightbearing views. The talar dome is intact. There is soft tissue swelling about the ankle. Left calcaneus: There is a healing, reduced and internally fixated comminuted intra-articular left calcaneal fracture. There is a nondisplaced intra-articular left fifth metatarsal base fracture. There is mild Achilles tendinopathy. IMPRESSION: 1. Healing reduced and internally fixated right distal tibial shaft fracture. 2. Healing, reduced, internally fixated, and grafted comminuted intra-articular fracture of the right calcaneus. 3. Healing, reduced and internally fixated comminuted intra-articular fracture of the left calcaneus. 4. Nondisplaced intra-articular fracture of the left fifth metatarsal base. Dictated by: Gray Pace M.D. The radiology attending physician has personally reviewed this study, and had reviewed and/or edited this written report and agrees with it. Electronically signed by: Abdiel Umanzor M.D. us No Thomas MD IMG XR PROCEDURES Final Resu lt documented in this encounter Visit Diagnoses Diagnosis Pilon fracture of right tibia, closed, initial encounter Closed nondisplaced fracture of left calcaneus with routine healing, unspecified portion of calcaneus, subsequent encounter Open displaced fracture of body of right calcaneus with routine healing, subsequent encounter documented in this encounter Care Teams Finisher Wallboard And Plasterboard Relationship Specialty Start Date End Date No, Physician PCP - General 02/28/21 No, Physician 12/09/20 documented as of this encounter
--- OUTSIDE RECORDS SUMMARY | 2024-09-11 03:20 | XMS_ITS | Encounter Summary ---
Author Organization [facility] Healthcare Address [address] [place] [id number] Care Team Providers Care Transitions Rn Care Coordinator Name Role Phone Unknown, Notinfile Primary Care Provider Unavail able No, Physician Unavailable Reason for Visit * Reason Onset Date Comments HOME HEALTH 12/25/2020 Encounter Details Date Type Department Care Team (Late st Contact Info) Description 12/25/2020 Telephone [facility] Case Management [address] [place] [address] Magdalene Richmond, [facility] Social History Tobacco Use Types Packs/Day Years Used Date Smoking Tobacco: Never Smokeless Tobacco: Never Alcohol Use Standard Drinks/Week Comments Yes 0 (1 standard drink = 0.6 oz pur e alcohol) Sex and Gender Information Value Date Recorded Sex Assigned at Not on file 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 Patient accepted to [facility] Home Care. [facility] Home Care services explained and information verified with patient's mother Diamond. Instructed to call [phone] if no one has contacted them on day of scheduled start of care. Nicole Richmond RN ( Caroline ) Files Supervisor [phone] documented in this encounter Plan of Treatment Not on file documented as of this encounter Visit Diagnoses Not on filedocumented in this encounter Care Teams Transitions Rn Care Coordinator Relationship Specialty Start Date End Date Unknown, Notinfile PCP - General 12/25/20 02/27/21 No, Physician 12/09/20 documented as of this encounter
--- OUTSIDE RECORDS SUMMARY | 2024-09-11 03:20 | XMS_ITS | Encounter Summary ---
Author Organization [facility] Home Care Serv[facility] es Address [address] [place] [address] Phone Care Team Providers Care Baker Bench Name Role Phone Unknown, Darian Primary Care Provider Unavail able No, Physician Unavailable Encounter Details Date Type Department Care Team (Late st Contact Info) Description 12/26/2020 Plan of Care Documentation [facility] [address] [address] [address] [place] [address] Social History Tobacco Use Types Packs/Day Years Used Date Smoking Tobacco: Never Smokeless Tobacco: Never Alcohol Use Standard Drinks/Week Comments Yes 0 (1 standard drink = 0.6 oz pur e alcohol) Sex and Gender Information Value Date Recorded Sex Assigned at Not on file 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
--- OUTSIDE RECORDS SUMMARY | 2024-09-11 03:20 | XMS_ITS | Encounter Summary ---
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 Also, informed the patient that surgery times can change at the last minute due to urgent add on etc., to please be flexible. Remindedthem as well, that they will need someone over the age of 18 accompany them to and from surgery andremain with them for the first 24hours after the procedure. Surgery Date: 01/16 Arrival Time: 10am Surgery Start Time: 12pm Location: [facility] 4th floor documented in this encounter Plan of Treatment Not on file documented as of this encounter Visit Diagnoses Not on filedocumented in this encounter Care Teams Fisher Pound Net Or Trap Relationship Specialty Start Date End Date Unknown, Notinfile PCP - General 12/25/20 02/27/21 No, Physician 12/09/20 documented as of this encounter
--- OUTSIDE RECORDS SUMMARY | 2024-09-11 03:20 | XMS_ITS | Encounter Summary ---
Author Organization [facility] Healthcare Address [address] [place] [address] Care Team Providers Care Medical Resident Name Role Phone Unknown, Notinfpamella Primary Care Provider Unavail able No, Physician Unavailable Encounter Details Date Type Department Care Team (Late st Contact Info) Description 12/25/[address] 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
--- OUTSIDE RECORDS SUMMARY | 2024-09-11 03:20 | XMS_ITS | Encounter Summary ---
Author Organization [facility] [employer] [facility] Address [address] [place] [address] Phone Care Team Providers Care Cookie Breaker Name Role Phone No, Physician Unavailable No, Physician Primary Care Provider Reason for Referral * Diagnostic Imaging (Routine) - Closed Specialty Diagnoses / Procedures Referred By Contac t Referred To Contact Procedures B-SCAN ULTRASOUND [id number] - OS - LEFT EYE Rafa Sanchez MD PhD Phone: tel: fax: [facility] (All Locations) Referral ID Status Reason Start Date Expiration Date Visits Re quested Visits Authorized [id number] Closed 02/28/2021 03/30/2022 1 1 Reason for Visit * Reason Comments Post-op Follow-up * Diagnostic Imaging (Routine) - Closed Specialty Diagnoses / Procedures Referred By Contac t Referred To Contact Procedures B-SCAN ULTRASOUND [id number] - OS - LEFT EYE Rafa Sanchez MD PhD Phone: tel: fax: [facility] (All Locations) Referral ID Status Reason Start Date Expiration Date Visits Re quested Visits Authorized [id number] Closed 02/28/2021 03/30/2022 1 1 Encounter Details Date Type Department Care Team (Late st Contact Info) Description 02/28/2021 12:10 PM CDT Office Visit [facility] Ophthalmology [address] [place] [address] [place] [address] Traumatic cataract of left eye, unspecified traumatic cataract type (Primary Dx); Left retinal detachment Social History Tobacco Use Types Packs/Day Years [...] on file 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 documented in this encounter Progress Notes * Rafa Sanchez MD PhD - 02/28/2021 12:10 PM CDT ASSESSMENT/ORDERS/PROCEDURES PERFORMED TODAY Chief Complaint Patient presents with ??? Post-op Follow-up HPI Post-op Follow-up In left eye. Vision is stable. Comments POM f/u RD OS s/p PPV/EL/AFx/14% C3F8 01/16/21. Patient states VA OS same since last visit bad . Sees 3 little bubbles in OS VA . No pain. Done with gtts. Patient concerned with white bumps inside LLL. Last edited by Mona Del Castillo, SAMI on 02/28/2021 12:16 PM. (History) Assessment/Plan Diagnoses and all orders for this visit: Traumatic cataract of left eye, unspecified traumatic cataract type (Primary) Assessment & Plan: white cataract with no view to fundus. recommend cataract surgery. pt will see his outside cataract surgeon for an eval. Orders: - B-SCAN ULTRASOUND [id number] - OS - LEFT EYE Left retinal detachment Assessment & Plan: POM1 s/p PPV/EL/AFx/14% C3F8 for traumatic VH/RRD to the left eye. Doing well. Retina attached per b-scan. Return to clinic in 3 month. Signs and symptoms of retinal detachment, tears and endophthalmitis, elevated pressure reviewed with patient. Altitude precautions were reviewed with patient. B-SCAN ULTRASOUND [id number] - OS - LEFT EYE OS: retina attached 360, small gas bubble The signs and symptoms of retinal detachment, tears, infection, elevated intra- ocular pressure werereviewed with the patient. Patient knows to call should they have any of the symptoms. PLAN FOR NEXT VISIT Return for 3 months with DFE OU. documented in this encounter Miscellaneous Notes * Assessment & Plan Note - Rafa Sanchez MD PhD - 02/28/2021 1:22 PM CDTAssociated Problem(s): Left retinal detachment POM1 s/p PPV/EL/AFx/14% C3F8 for traumatic VH/RRD to the left eye. Doing well. Retina attached per b-scan. Return to clinic in 3 month. Signs and symptoms of retinal detachment, tears and endophthalmitis, elevated pressure reviewed with patient. Altitude precautions were reviewed with patient. * Assessment & Plan Note - Rafa Sanchez MD PhD - 02/28/2021 1:22 PM CDTAssociated Problem(s): Traumatic cataract of left eye white cataract with no view to fundus. recommend cataract surgery. pt will see his outside cataract surgeon for an eval. documented in this encounter Plan of Treatment Not on file documented as of this encounter Procedures Procedure Name Priority Date/Time Associated Diagnosis Comments B-SCAN ULTRASOUND [id number] - OS - LEFT EYE Routine 02/28/2021 1:21 PM CDT Traumatic cataract of left eye, unspecified traumatic cataract type documented in this encounter Results * B-SCAN ULTRASOUND [id number] - OS - LEFT EYE (02/28/2021 1:21 PM CDT) Anatomical Region Laterality Modality Head Other Narrative 02/28/2021 1:21 PM CDT OS: retina attached 360, small gas bubble us Rafa Sanchez MD PhD OPHTH ULTRASOUND F inal Result documented in this encounter Visit Diagnoses Diagnosis Traumatic cataract of left eye, unspecified traumatic cataract type- Primary Left retinal detachment Unspecified retinal detachment documented in this encounter Eye Exam Visual Acuity (Snellen - Linear) Right eye Left eye Dist sc 20/20 CF @ 6'' Dist ph sc NI Tonometry (Tonopen, 12:18 PM) Right eye Left eye Pressure 15 13 Pupils Dark Light Shape React APD Right eye 3 2 Round Brisk - Left eye 8 8 Irregular NR -BR Neuro/Psych Oriented x3: Yes Mood/Affect: Normal Dilation Left eye: 1.0% Mydriacyl, 2. 5% Phenylephrine @ 12:18 PM External Exam Right eye Left eye External Normal Slit Lamp Exam Right eye Left eye Lids/Lashes Normal Conjunctiva/Sclera buried vicryl sutures Cornea Clear Anterior Chamber trace mixed keyonna l Iris dilated Lens white cataract Vitreous vitrectomized Fundus Exam Right eye Left eye Disc no view Macula no view Vessels no view Periphery no view Care Teams Cookie Breaker Relationship Specialty Start Date End Date No, Physician PCP - General 02/28/21 No, Physician 12/09/20 documented as of this encounter
--- OUTSIDE RECORDS SUMMARY | 2024-09-11 03:20 | XMS_ITS | Encounter Summary ---
Author Organization [facility] Address [address] [place] [address] Phone Care Team Providers Care Engineering Librarian Name Role Phone Unknown, Notinfile Primary Care Provider Unavail able No, Physician Unavailable Reason for Visit * Reason Comments Wound Care * Auth/Cert Specialty Diagnoses / Procedures Referred By Dank t Referred To Contact Referral ID Status Reason Start Date Expiration Date Visits Re quested Visits Authorized [id number] 1 1 Encounter Details Date Type Department Care Team (Late st Contact Info) Description 01/02/2021 12:00 PM CDT Home Care Visit [facility] [address] [place] [address] Blanquita Kay RN SN HOME VISIT Social History Tobacco Use Types Packs/Day Years Used Date Smoking Tobacco: Never Smokeless Tobacco: Never Alcohol Use Standard Drinks/Week Comments Yes 0 (1 standard drink = 0.6 oz pur e alcohol) Sex and Gender Information Value Date Recorded Sex Assigned at Not on file 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 Gender Identity Not on file Sexual Orientation Not on file documented as of this encounter Last Filed Vital Signs Vital Sign Reading Time Taken Comments Blood Pressure 116/79 01/02/2021 12:52 PM CDT Pulse 0 01/02/2021 12:52 PM CDT Temperature 36.7 ??C (98.1 ??F) 01/02/2021 12:52 PM C DT Respiratory Rate 18 01/02/2021 12:52 PM CDT Oxygen Saturation 96% 01/02/2021 12:52 PM CDT Inhaled Oxygen Concentration - - Weight - - Height - - Body Mass Index - - documented in this encounter Plan of Treatment Not on file documented as of this encounter Visit Diagnoses Not on filedocumented in this encounter Home Health Visit - Care Plan Visit Details Visit Type -SN Home Visit Discipline -Half-Way Problems Problem Description Start Date Status Goals Interve ntions Wound Risk of Infection Disciplines: Half-Way, Physical Therapy Risk of infections related to wounds 12/26/2020 Active 1 goal linked to scheduled/documen corey intervention 1 goal intervention scheduled/document ed in this visit Wound Education and Management Disciplines: Half-Way, Physical Therapy 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 12/26/2020 Active 1 goal linked to scheduled/documen corey intervention 1 goal intervention scheduled/document ed in this visit Wound Care Disciplines: Half-Way, Physical Therapy #1 LEFT ARM Wound care needed 12/26/2020 Active 1 goal linked to scheduled/documen corey intervention 1 goal intervention scheduled/document ed in this visit Wound Care Disciplines: Half-Way, Physical Therapy #4 RIGHT INDEX FINGER Wound care needed 12/26/2020 Active 1 goal linked to scheduled/documen corey intervention 1 goal intervention scheduled/document ed in this visit Homebound Status Disciplines: Half-Way, Physical Therapy Patient's homebound status 12/26/2020 Active 1 goal linked to scheduled/documen corey intervention 1 goal intervention scheduled/document ed in this visit Monitor patient's vital signs every home health visit Disciplines: Half-Way, Physical Therapy Monitor patient's vital signs every home health visit. 12/26/2020 Active 1 goal linked to scheduled/documen corey intervention 1 goal intervention scheduled/document ed in this visit Standardized Guidelines Disciplines: Half-Way, Physical Therapy Standardized Guidelines 12/26/2020 Active 1 goal linked to scheduled/documen corey intervention 1 goal intervention scheduled/document ed in this visit Fall Precautions/Saf ety Concerns Disciplines: Half-Way, Physical Therapy Alteration in safety 12/26/2020 Active 1 goal linked to scheduled/documen corey intervention 1 goal intervention scheduled/document ed in this visit Wound Care Disciplines: Half-Way, Physical Therapy #3 LEFT POSTERIOR THIGH SURGICAL SITE Wound care needed 12/26/2020 Active 1 goal linked to scheduled/documen corey intervention 1 goal intervention scheduled/document ed in this visit Wound Care Disciplines: Half-Way, Physical Therapy Wound care needed #4 RIGHT HAND INDEX FINGER 12/26/2020 Active 1 goal linked to scheduled/documen corey intervention 1 goal intervention scheduled/document ed in this visit Wound Care Disciplines: Half-Way, Physical Therapy #5 LEFT FOOT Wound care needed 12/26/2020 Active 1 goal linked to scheduled/documen corey intervention 1 goal intervention scheduled/document ed in this visit Wound Care Disciplines: Half-Way, Physical Therapy #6 RIGHT LEG Wound care needed 12/26/2020 Active 1 goal linked to scheduled/documen corey intervention 1 goal intervention scheduled/document ed in this visit Wound Care Disciplines: Half-Way, Physical Therapy #7 RIGHT ANKLE Wound care needed 12/26/2020 Active 1 goal linked to scheduled/documen corey intervention 1 goal intervention scheduled/document ed in this visit Goals Goal Associated Problem Outcome Goal Met? Visit Notes Knowledgeable of infection Description: : Patient will remain free of infection and able to recognizes of signs of infection by DISCHARGE Wound Risk of Infection No Knowledgeable on Woundcare Description: Patient/caregiver will be [...] visit during episode of care Description: Home research engineer to measure vital signs during every home health visit during episode of care. Monitor patient's vital signs every home health visit No Understanding of when to notify MD in absence of home care staff Description: Understanding of when to notify MD in absence of home care staff Standardized Guidelines No Demonstrate use of safety precautions Description: [...] Intervention Associated Problem/Goal Status Variance Visit Notes Disposal of Dressing Description: Dispose of soiled dressing by place in bag then place in patient's trashcan. Problem:Wound Risk of Infection Goal:Knowledgeable of infection Completed Dispose of soiled dressing by place in bag then place in patient's trashcan. Demonstration of Wound Care Description: Patient/caregiver will complete a return demonstration on wound care to SN or PT. Observed return wound care on 12/26/20 Problem:Wound Education and Management Goal:Knowledgeable on Woundcare Completed Patient/caregiver will complete a return demonstration on wound care to SN or PT. Observed return wound care on 12/26/20 Perform dressing change Description: Perform dressing change: Site #1 LEFT ARM to perform dressing change as of 12/26/20 Frequency DAILY and PRN for excess drainage or dislodgement of dressing. Wound care as follows: KEEP DRY , apply GAUZE To wound bed, WRAP WITH GAUZE AND SECURE WITH TAPE OF CHOICE PER SN OR MD Problem:Wound Care Goal:Progression towards healing Completed Perform dressing change: Site #1 LEFT ARM to perform dressing change as of 12/26/20 Frequency DAILY and PRN for excess drainage or dislodgement of dressing. Wound care as follows: KEEP DRY , apply GAUZE To wound bed, WRAP WITH GAUZE AND SECURE WITH TAPE OF CHOICE PER SN OR MD Perform dressing change Description: Perform dressing change: Site #4 RIGHT INDEX FINGER SN OR CAREGIVER to perform dressing change as of 12/26/20 Frequency DAILY and PRN for excess drainage or dislodgement of dressing. Wound care as follows: KEEP CLEAN AND DRY apply GAUZE to wound bed, WRAP WITH GAUZE and secure with TAPE OF CHOICE. Problem:Wound Care Goal:Progression towards healing Completed Perform dressing change: Site #4 RIGHT INDEX FINGER SN OR CAREGIVER to perform dressing change as of 12/26/20 Frequency DAILY and PRN for excess drainage or dislodgement of dressing. Wound care as follows: KEEP CLEAN AND DRY apply GAUZE to wound bed, WRAP WITH GAUZE and secure with TAPE OF CHOICE. Homebound Status Description: Patient is homebound due [...] health visit during episode of care Completed Physician notification Description: Use standardized clinical guidelines for notifying physician of abnormal vital signs or clinical findings Problem:Standardized Guidelines Goal:Understanding of when to notify MD in absence of home care staff Completed MD OFFICE NOTIFIED OF PT REMOVING MD PLACED CAST TO RLE. HE REPLACED WITH GAUZE WRAP AND CHIP WRAP. MD WILL SEE IN OFFICE TOMORROW. [place] Fall Precautions Description: Assess patient safety Problem:Fall [...] CHOICE. Problem:Wound Care Goal:Progression towards healing Completed Perform dressing change: SITE #3 LEFT POSTERIOR THIGH SURGICAL SITE SN OR CAREGIVER to perform dressing change as of 12/26/20 Frequency DAILY and PRN for excess drainage or dislodgement of dressing. Wound care as follows: KEEP WOUND DRY , apply GAUZE to wound bed, AND SECURE WITH TAPE OF CHOICE. Perform dressing change Description: Perform dressing change: Site #4 RIGHT HAND INDEX FINGER SN OR CAREGIVER } to perform dressing change as of 12/26/20 Frequency DAILY and PRN for excess drainage or dislodgement of dressing. Wound care as follows: KEEP CLEAN AND DRY AND MAY LEAVE OPEN TO AIR. Problem:Wound Care Goal:Progression towards healing Completed Perform dressing change: Site #4 RIGHT HAND INDEX FINGER SN OR CAREGIVER } to perform dressing change as of 12/26/20 Frequency DAILY and PRN for excess drainage or dislodgement of dressing. Wound care as follows: KEEP CLEAN AND DRY AND MAY LEAVE OPEN TO AIR. Perform dressing change Description: Perform dressing change: #5 LEFT FOOT NON-REMOVEABLE SPLINT AND WRAP IN PLACE. Problem:Wound Care Goal:Progression towards healing Completed Perform dressing change: #5 LEFT FOOT NON-REMOVEABLE SPLINT AND WRAP IN PLACE. Perform dressing change Description: Perform dressing change: Site #6 RIGHT LEG SN OR CAREGIVER, NON-REMOVEABLE CAST IN PLACE. KEEP CLEAN AND DRY Problem:Wound Care Goal:Progression towards healing Completed Perform dressing change: Site #6 RIGHT LEG SN OR CAREGIVER, NON-REMOVEABLE CAST IN PLACE. KEEP CLEAN AND DRY Perform dressing change Description: Perform dressing change: Site #7 RIGHT ANKLE SN OR CAREGIVER KEEP CAST IN PLACE DRY AND INTACT. Problem:Wound Care Goal:Progression towards healing Completed Perform dressing change: Site #7 RIGHT ANKLE SN OR CAREGIVER KEEP CAST IN PLACE DRY AND INTACT. PT REMOVED PER SELF AND WRAPPED WITH GAUZE AND CHIP. MD AWARE documented in this encounter Care Teams Engineering Librarian Relationship Specialty Start Date End Date Unknown, Notinfile PCP - General 12/25/20 02/27/21 No, Physician 12/09/20 documented as of this encounter
--- OUTSIDE RECORDS SUMMARY | 2024-09-11 03:20 | XMS_ITS | Encounter Summary ---
Author Organization [facility] Address [address] [place] [address] Phone Care Team Providers Care Media Clerk Name Role Phone Unknown, Notinfile Primary Care Provider Unavail able No, Physician Unavailable Reason for Visit * Reason Comments Post-op Visit Encounter Details Date Type Department Care Team (Late st Contact Info) Description 01/17/2021 1:10 PM CDT Office Visit [facility] Ophthalmology [address] [place] [address] [place] [address] Left retinal detachment (Primary Dx); Vitreous hemorrhage of left eye (CMS/HCC) Social History Tobacco Use Types Packs/Day Years [...] on file 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 documented in this encounter Progress Notes * Rafa Sanchez MD PhD - 01/17/2021 1:10 PM CDT ASSESSMENT/ORDERS/PROCEDURES PERFORMED TODAY Chief Complaint Patient presents with ??? Post-op Visit HPI POV1 s/p PPV/EL/AFx/14% C3F8 for RRD OS. Patient c/o itching OS. VA OS blurry. Did not bring tobra/PF to office. Patch removed in office. Last edited by Mona Del Castillo, SAMI on 01/17/2021 1:23 PM. (History) Assessment/Plan Diagnoses and all orders for this visit: Left retinal detachment (Primary) Assessment & Plan: One day status post PPV/EL/AFx/14% C3F8 for traumatic VH/RRD to the left eye. Doing well. Shield operated eye, Tobramycin 4x/day and Predforte 4x/day Return to clinic in one week. Signs and symptoms of retinal detachment, tears and endophthalmitis, elevated pressure reviewed with patient. Post Op Position:Face down and right side down Altitude precautions were reviewed with patient. No strenuous activity. Vitreous hemorrhage of left eye (CMS/HCC) The signs and symptoms of retinal detachment, tears, infection, elevated intra- ocular pressure werereviewed with the patient. Patient knows to call should they have any of the symptoms. PLAN FOR NEXT VISIT Return for 1 week for POW1 with DFE OS. documented in this encounter Miscellaneous Notes * Assessment & Plan Note - Rafa Sanchez MD PhD - 01/17/2021 2:20 PM CDTAssociated Problem(s): Left retinal detachment One day status post PPV/EL/AFx/14% C3F8 for traumatic VH/RRD to the left eye. Doing well. Shield operated eye, Tobramycin 4x/day and Predforte 4x/day Return to clinic in one week. Signs and symptoms of retinal detachment, tears and endophthalmitis, elevated pressure reviewed with patient. Post Op Position:Face down and right side down Altitude precautions were reviewed with patient. No strenuous activity. documented in this encounter Plan of Treatment Not on file documented as of this encounter Visit Diagnoses Diagnosis Left retinal detachment- Primary Unspecified retinal detachment Vitreous hemorrhage of left eye (CMS/HCC) ([facility]) Vitreous hemorrhage documented in this encounter Eye Exam Visual Acuity (Snellen - Linear) Right eye Left eye Dist sc HM @ 1ft Tonometry (Tonopen, 1:31 PM) Right eye Left eye Pressure 13 Pupils APD Right eye - Left eye -br Neuro/Psych Oriented x3: Yes Dilation Left eye: 1.0% Mydriacyl, 2. 5% Phenylephrine @ 1:32 PM Slit Lamp Exam Right eye Left eye Lids/Lashes trace edema Conjunctiva/Sclera mild inj, MARILUZ , buried vicryl sutures Cornea Clear Anterior Chamber 3+ primarily pi gmented cell/RBCs Iris dilated Lens +NS Vitreous vitrectomized, 8 0% gas Fundus Exam Right eye Left eye Disc perfused Macula flat Vessels stable Periphery retinotomy, Hors eshoe tear, 360 Laser Care Teams Media Clerk Relationship Specialty Start Date End Date Unknown, Notinfile PCP - General 12/25/20 02/27/21 No, Physician 12/09/20 documented as of this encounter
--- OUTSIDE RECORDS SUMMARY | 2024-09-11 03:20 | XMS_ITS | Encounter Summary ---
Author Organization [facility] Healthcare Address [address] [place] [address] Care Team Providers Care Batcher Operator Name Role Phone Unknown, Notinfile Primary Care Provider Unavail able No, Physician Unavailable Encounter Details Date Type Department Care Team (Latest Contact Info) Description 01/16/2021 9:57 AM CDT - 01/16/2021 3:05 PM CDT Hospital Encounter [facility] Operating Room [facility] [address] [place] [address] Adina Rose MD [address] [address] Left retinal detachment Discharge Disposition: Discharge to home or self [...] on file 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 Sex 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 Gender Identity Not on file Sexual Orientation [...] PM CDT documented in this encounter Discharge Diagnoses Diagnosis Unspecified retinal detachment with retinal break, left eye - UNSPECIFIED RETINAL DETACHMENT WITH RETINAL BREAK, LEFT EYE Vitreous hemorrhage, left eye (CMS/HCC) (HCC) - VITREOUS HEMORRHAGE, LEFT EYE Vitreous hemorrhage Personal history of peptic ulcer disease - PERSONAL HISTORY OF PEPTIC ULCER DISEASE group home (current) use of anticoagulants - SHELTER (CURRENT) USE OF ANTICOAGULANTS Long-term (current) use of anticoagulants group home (current) use of aspirin - HAND DECORATOR (CURRENT) USE OF ASPIRIN Other group home (current) drug therapy - OTHER SHELTER (CURRENT) DRUG THERAPY documented in this encounter Discharge Instructions * [...] OS 01/17/2021 1:10 PM [facility] OP 01/24/2021 1:00 PM [facility] 02/07/2021 10:30 AM No Thomas MD [facility] 6A OS Location: [facility], 1st floor [facility] in [facility].From the main hospital lobby, follow signs to the Eye Clinic, or ask for directions to the ?[facility] eye clinic in the [facility]. MEDICATIONS: ?? Start using your drops [...] Emergency,?? and ask for the ???Eye doctor consulting practice director.?? You may leave a message for prescription [...] capsule 0 01/16/2021 at Unknown time ??? qhvrshwbqvseo-blxlanl-ayvvmjnc (EXCEDRIN MIGRAINE) 250-250-65 mg per tablet Take [...] with the patient. Reviewed with them that [facility] is a teaching institution and that trainees, medical students, residents, and fellows may be involved in their care. They understand and wish to proceed. documented in this encounter Miscellaneous Notes * Op Note - Rafa Sanchez MD PhD - 01/16/2021 12:[address] Adina Rose. FIRST SCREWDOWN OPERATOR Rafa Sanchez MD, PhD (fellow) SECOND SCREWDOWN OPERATOR Lindsey Nguyen MD (resident) PREOPERATIVE DIAGNOSES Macula-involving [...] of procedure * Perioperative Nursing Note - Parish Melisa - 01/12/2021 5:05 PM CDT [facility] Perioperative Nursing Note Telephone Preoperative Evaluation ([facility]) - TELEPHONE ONLY, NO PHYSICAL EXAM [...] Blunt [place]car Point Xlong Screw External - [id number] - Implanted Calcaneus Inventory item: SYNTHES 294.55 Schanz 5mm 170mm 50mm Blunt [place]car [place] Xlong Screw External Model/Cat number: [id number] Extrusion Press Supervisor: BuySimple As of 12/10/2020 Status: Implanted Suarez And Nephew/Richco/Ortho [id number] Evos 3.5mm 80mm Self Tap Cortex Screw Bone Sterile - [id number] - Implanted (Left) Calcaneus Inventory item: SUAREZ and NEPHEW/RICHCO/ORTHO [id number] Evos 3.5mm 80mm Self Tap Cortex Screw Bone Sterile Model/Cat number: [id number] Extrusion Press Supervisor: Suarez & Nephew/Richco/Ortho As of 12/12/2020 Status: Implanted Suarez And Nephew/Richco/Ortho [id number] Evos 3.5mm 70mm Self Tap Cortex Screw Bone Sterile - [id number] - Implanted (Left) Calcaneus Inventory item: SUAREZ and NEPHEW/RICHCO/ORTHO [id number] Evos 3.5mm 70mm Self Tap Cortex Screw Bone Sterile Model/Cat number: [id number] Extrusion Press Supervisor: Suarez & Nephew/Richco/Ortho As of 12/12/2020 Status: Implanted Suarez And Nephew/Richco/Ortho [id number] Evos 3.5mm 50mm Self Tap Cortex Screw Bone Sterile - [id number] - Implanted (Left) Calcaneus Inventory item: SUAREZ and NEPHEW/RICHCO/ORTHO [id number] Evos 3.5mm 50mm Self Tap Cortex Screw Bone Sterile Model/Cat number: [id number] Extrusion Press Supervisor: Suarez & Nephew/Richco/Ortho As of 12/12/2020 Status: Implanted Suarez And Nephew/Richco/Ortho [id number] Evos 3.5mm 55mm Self Tap Cortex Screw Bone Sterile - [id number] - Implanted (Left) Calcaneus Inventory item: SUAREZ and NEPHEW/RICHCO/ORTHO [id number] Evos 3.5mm 55mm Self Tap Cortex Screw Bone Sterile Model/Cat number: [id number] Extrusion Press Supervisor: Suarez & Nephew/Richco/Ortho As of 12/12/2020 Status: Implanted Suarez And Nephew/Richco/Ortho [id number] Evos 3.5mm 40mm Self Tap Cortex Screw Bone Sterile - [id number] - Implanted (Left) Calcaneus Inventory item: SUAREZ and NEPHEW/RICHCO/ORTHO [id number] Evos 3.5mm 40mm Self Tap Cortex Screw Bone Sterile Model/Cat number: [id number] Extrusion Press Supervisor: Suarez & Nephew/Richco/Ortho As of 12/12/2020 Status: Implanted Synthes 241.450 Lcp Combi 210mm 15 Hole Low Profile Limit Contact Taper Tip - [id number] - Implanted (Right) Tibia Inventory item: SYNTHES 241.450 Lcp Combi 210mm 15 Hole Low Profile Limit Contact Taper Tip Model/Cat number: [id number] Extrusion Press Supervisor: Synthes As of 12/19/2020 Status: Implanted Synthes 212.134 3.5mm 2.9mm 44mm Self Tap Lock Stardrive Conical Head T15 Full - [id number] - Implanted (Right) Tibia Inventory item: SYNTHES 212.134 3.5mm 2.9mm 44mm Self Tap Lock Stardrive Conical Head T15 Full Model/Cat number: [id number] Extrusion Press Supervisor: Synthes As of 12/19/2020 Status: Implanted Synthes 212.118 3.5mm 2.9mm 42mm Self Tap Lock Stardrive Conical Head Full Thread - [id number] - Implanted (Right) Tibia Inventory item: SYNTHES 212.118 3.5mm 2.9mm 42mm Self Tap Lock Stardrive Conical Head Full Thread Model/Cat number: [id number] Extrusion Press Supervisor: Synthes As of 12/19/2020 Status: Implanted Synthes 212.117 3.5mm 2.9mm 40mm Self Tap Lock Stardrive Conical Head T15 Full - [id number] - Implanted (Right) Tibia Inventory item: SYNTHES 212.117 3.5mm 2.9mm 40mm Self Tap Lock Stardrive Conical Head T15 Full Model/Cat number: [id number] Extrusion Press Supervisor: Synthes As of 12/19/2020 Status: Implanted Synthes 204.830 3.5mm 6mm 30mm 2.5mm Self Tap Small Hexagonal Socket Low Profile - [id number] - Implanted (Right) Tibia Inventory item: SYNTHES 204.830 3.5mm 6mm 30mm 2.5mm Self Tap Small Hexagonal Socket Low Profile Model/Cat number: [id number] Extrusion Press Supervisor: Synthes As of 12/19/2020 Status: Implanted Synthes 204.838 3.5mm 6mm 38mm 2.5mm Self Tap Small Hexagonal Socket Low Profile - [id number] - Implanted (Right) Tibia Inventory item: SYNTHES 204.838 3.5mm 6mm 38mm 2.5mm Self Tap Small Hexagonal Socket Low Profile Model/Cat number: [id number] Extrusion Press Supervisor: Synthes As of 12/19/2020 Status: Implanted Synthes 204.832 3.5mm 6mm 32mm 2.5mm Self Tap Small Hexagonal Socket Low Profile - [id number] - Implanted (Right) Tibia Inventory item: SYNTHES 204.832 3.5mm 6mm 32mm 2.5mm Self Tap Small Hexagonal Socket Low Profile Model/Cat number: 204.832 Extrusion Press Supervisor: Synthes As of 12/19/2020 Status: Implanted Synthes 204.840 3.5mm 6mm 40mm 2.5mm Self Tap Small Hexagonal Socket Low Profile - [id number] - Implanted (Right) Tibia Inventory item: SYNTHES 204.840 3.5mm 6mm 40mm 2.5mm Self Tap Small Hexagonal Socket Low Profile Model/Cat number: [id number] Extrusion Press Supervisor: Synthes As of 12/19/2020 Status: Implanted Synthes 212.119 3.5mm 2.9mm 45mm Self Tap Lock Stardrive Conical Head T15 Full - [id number] - Implanted (Right) Tibia Inventory item: SYNTHES 212.119 3.5mm 2.9mm 45mm Self Tap Lock Stardrive Conical Head T15 Full Model/Cat number: [id number] Extrusion Press Supervisor: Synthes As of 12/19/2020 Status: Implanted Abyrx Os-Mon-1 Wax Bone Montage Sterile - [id number] - Implanted (Right) Ankle Inventory item: ABYRX OS-MON-1001 Wax Bone Montage Sterile Model/Cat number: [id number] Extrusion Press Supervisor: Abyrx Lot number: [id number] Device identifier: [id number] Device identifier type: [facility] As of 12/21/2020 Status: Implanted Abyrx Os-Mon-1000 Wax Bone Montage Sterile - [id number] - Implanted (Right) Ankle Inventory item: ABYRX OS-MON Wax Bone Montage Sterile Model/Cat number: [id number] Extrusion Press Supervisor: Abyrx Lot number: [id number] Device identifier: [id number] Device identifier type: [facility] As of 12/21/2020 Status: Implanted Synthes Lcp 56mm Variable Angle Lock Low Profile Precontour Calcaneal - [id number] - Implanted (Right) Ankle Inventory item: SYNTHES Lcp 56mm Variable Angle Lock Low Profile Precontour Calcaneal Model/Cat number: [id number] Extrusion Press Supervisor: Synthes As of 12/21/2020 Status: Implanted Synthes 202.963 2.7mm 5mm 44mm 2.5mm Self Tap Stardrive Cortical T8 Screw Bone - [id number] - Implanted (Right) Ankle Inventory item: SYNTHES 202.963 2.7mm 5mm 44mm 2.5mm Self Tap Stardrive Cortical T8 Screw Bone Model/Cat number: [id number] Extrusion Press Supervisor: Synthes As of 12/21/2020 Status: Implanted Synthes 2.7mm 50mm Self Tap Lock Variable Angle Stardrive T8 Screw Bone - [id number] - Implanted (Right) Ankle Inventory item: SYNTHES 2.7mm 50mm Self Tap Lock Variable Angle Stardrive T8 Screw Bone Model/Cat number: [id number] Extrusion Press Supervisor: Synthes As of 12/21/2020 Status: Implanted Synthes .044 2.7mm 44mm Self Tap Lock Variable Angle Stardrive T8 Screw Bone - [id number] - Implanted (Right) Ankle Inventory item: SYNTHES .044 2.7mm 44mm Self Tap Lock Variable Angle Stardrive T8 Screw Bone Model/Cat number: [id number] Extrusion Press Supervisor: Synthes As of 12/21/2020 Status: Implanted Synthes .038 2.7mm 38mm Self Tap Lock Variable Angle Stardrive T8 Screw Bone - [id number] - Implanted (Right) Ankle Inventory item: SYNTHES .038 2.7mm 38mm Self Tap Lock Variable Angle Stardrive T8 Screw Bone Model/Cat number: [id number] Extrusion Press Supervisor: Synthes As of 12/21/2020 Status: Implanted Synthes .040 2.7mm 40mm Self Tap Lock Variable Angle Stardrive T8 Screw Bone - [id number] - Implanted (Right) Ankle Inventory item: SYNTHES . 2.7mm 40mm Self Tap Lock Variable Angle Stardrive T8 Screw Bone Model/Cat number: [id number] Extrusion Press Supervisor: Synthes As of 12/21/2020 Status: Implanted Synthes .026 2.7mm 26mm Self Tap Lock Variable Angle Stardrive T8 Screw Bone - [id number] - Implanted (Right) Ankle Inventory item: SYNTHES .026 2.7mm 26mm Self Tap Lock Variable Angle Stardrive T8 Screw Bone Model/Cat number: [id number] Extrusion Press Supervisor: Synthes As of 12/21/2020 Status: Implanted Synthes .042 2.7mm 42mm Self Tap Lock Variable Angle Stardrive T8 Screw Bone - [id number] - Implanted (Right) Ankle Inventory item: SYNTHES .042 2.7mm 42mm Self Tap Lock Variable Angle Stardrive T8 Screw Bone Model/Cat number: [id number] Extrusion Press Supervisor: Synthes As of 12/21/2020 Status: Implanted Synthes 204.870 3.5mm 6mm 70mm 2.5mm Self Tap Small Hexagonal Socket Low Profile - [id number] - Implanted (Right) Ankle Inventory item: SYNTHES 204.870 3.5mm 6mm 70mm 2.5mm Self Tap Small Hexagonal Socket Low Profile Model/Cat number: 204.870 Extrusion Press Supervisor: Synthes As of 12/21/2020 Status: Implanted Synthes 204.875 3.5mm 6mm 75mm 2.5mm Self Tap Small Hexagonal Socket Low Profile - [id number] - Implanted (Right) Ankle Inventory item: SYNTHES 204.875 3.5mm 6mm 75mm 2.5mm Self Tap Small Hexagonal Socket Low Profile Model/Cat number: 204.875 Extrusion Press Supervisor: Synthes As of 12/21/2020 Status: Implanted Synthes 204.855 3.5mm 6mm 55mm 2.5mm Self Tap Small Hexagonal Socket Low Profile - [id number] - Implanted (Right) Ankle Inventory item: SYNTHES 204.855 3.5mm 6mm 55mm 2.5mm Self Tap Small Hexagonal Socket Low Profile Model/Cat number: 204.855 Extrusion Press Supervisor: Synthes As of 12/21/2020 Status: Implanted SKIN Piercings Remaining: No Wound (LDAs) Type of Wound (LDA): (bilateral ankle surgical incisions ) SCREENINGS Alfreda index score: 80 NUTRITION PATIENT CARE PLANNING Advance Directives (For Healthcare) Advance Directive: Patient does not have advance directive Information Provided on Healthcare Directives: Yes Communication/Mobile Sales Technician Needs Communication Needs: Glasses Assistive Devices/DME: Eyeglasses Hearing - Right Ear: Functional Hearing - Left Ear: Functional Discharge Planning Type of Residence: Private residence Living Arrangements: Children Support Systems: Parent(mom to be otr owner operator truck driver and caregiver) Patient expects to be [...] in a congregate living facility (ex. assisted living/mcc facility, fpc, chcf)?: No Have you tested positive for COVID-19 [...] 20 seconds. Use an alcohol- based hand weapons engineer that contains at least 60% alcohol if [...] insurance card, a photo ID (like a Client Services Assistant's license) and a method of payment for [...] your surgery gets rescheduled, you MUST call [phone] Friday-Friday 8am-4:30pm to get your COVID testing rescheduled or your lab order will not be available at Testing Sites. COVID Testing is only valid for up to 96 hours prior to surgery date, unless otherwise specified. If you are unable to reach staff at the above phone number, please call the CPAP Staff at [phone]. This number cannot order a lab test, [...] 20 seconds. Use an alcohol- based hand weapons engineer that contains at least 60% alcohol if soap and water are not available. All patients should read below section: All visitors/patients are being asked to wear a clean mask when entering the hospital. COVID 19 Updates & Visitor Policy: Please access [email or web address] for the most updated information. Information on [facility]: Please view [email or web address] (Patient & Visitor Information) for additional details regarding Advanced Directive forms, AWARE, directions, parking information, lodging, Internet access, dining and more. Information on [facility]: Please view [email or web address] (Patient and Visitor Information) for parking/directions and more. For MyChart information, to activate account or password recovery, please go to [email or web address] or call [phone] (toll-free: [phone]). Surgery Times: For patients having surgery @ [facility], [facility] or [facility], if your surgeon's office has not notified you of your surgery time by NOON THE BUSINESS DAY BEFORE your surgery, please call [phone] and ask for your surgeon's office documented in this encounter Plan of Treatment [...] MAR Action Action Date Dose Rate Site famotidine (PEPCID) injection 20 mg 20 mg, intravenous, Administer over 2 Minutes, Once, On Fri01/16/21 at 1200, For 1 dose, Phase I & Post-op Floor Given 01/16/2021 11:54 AM CDT 20 mg Lactated Ringer's (LR) infusion 125 mL/hr, intravenous, Continuous, Starting on Fri01/16/21 at 1115 Restarted 01/16/2021 1:45 PM CDT New Bag 01/16/2021 12:22 PM CDT 50 mL/hr phenylephrine (MYDFRIN) 2.5 % ophthalmic solution 1 [...] Given 01/16/2021 11:43 AM CDT 30 mL tropicamide (MYDRIACYL) 1 % ophthalmic solution 1 [...] 1056 (Given - Provid er: Verona Serra RN)1107 (Given - Provider: Verona Serra RN)1139 [...] - Provid er: Rafa Sanchez MD PhD) balanced salt soln no.2 irrig. (BSS) intraocular solution (CANCELED) As needed, Starting on Fri01/16/21 at 1310, Intra-Op 1248 (Given - Provid er: Rafa Sanhcez MD PhD) lidocaine 1%, bupivacaine 0.375% preservative [...] (TYLENOL) tablet 1,000 mg 1 0 01/16/2021 balanced salt soln no.2 irri g. (BSS) intraocular solution 2 01/16/2021 Lactated Ringer's (LR) infusion 1 lidocaine 1%, bupivacaine 0. 375% preservative free ophthalmic solution (total volume 5 mL) 1 01/16/2021 naloxone (NARCAN) 0.4 mg/mL injection 0.04-0.4 mg 1 01/16/2021 sodium chloride 0.9% flush 0.5-20 mL 2 12/30 tetracaine (PF) (ALTACAINE) 0.5 % ophthalmic solution 1 01/16/2021 tobramycin-dexAMETHasone (TO BRADEX) 0.3-0.1 % ophthalmic ointment 1 01/16/2021 triamcinolone (KENALOG) 40 mg/mL injection 1 01/16/2021 documented in this encounter Care Teams Batcher Operator Relationship Specialty Start Date End Date Unknown, Notinfile PCP - General 12/25/20 02/27/21 No, Physician 12/09/20 documented as of this encounter
--- OUTSIDE RECORDS SUMMARY | 2024-09-11 03:20 | XMS_ITS | Encounter Summary ---
Author Organization [facility] Address [address] [place] [address] Phone Care Team Providers Care National Park Ranger Name Role Phone Unknown, Darian Primary Care Provider Unavail able No, Physician Unavailable Reason for Visit * Auth/Cert Specialty Diagnoses / Procedures Referred By Dank t Referred To Contact Referral ID Status Reason Start Date Expiration Date Visits Re quested Visits Authorized [id number] 1 1 Encounter Details Date Type Department Care Team (Late st Contact Info) Description 12/29/2020 Home Care Visit [facility] [address] [address] [address] [place] [address] Colleen Calvo LPN TRAVEL SCREENING CASE COMMUNICATION Social History Tobacco Use Types Packs/Day Years Used Date Smoking Tobacco: Never Smokeless Tobacco: Never Alcohol Use Standard Drinks/Week Comments Yes 0 (1 standard drink = 0.6 oz pur e alcohol) Sex and Gender Information Value Date Recorded Sex Assigned at Not on file 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
--- OUTSIDE RECORDS SUMMARY | 2024-09-11 03:20 | XMS_ITS | Encounter Summary ---
Author Organization [facility] Home Care Servic es Address [address] [place] [address] Phone Care Team Providers Care Needle Polisher Name Role Phone Unknown, Notinfile Primary Care Provider Unavail able No, Physician Unavailable Reason for Visit * Auth/Cert Specialty Diagnoses / Procedures Referred By Dank ashley Referred To Contact Referral ID Status Reason Start Date Expiration Date Visits Re quested Visits Authorized [id number] 1 1 Encounter Details Date Type Department Care Team (Late st Contact Info) Description 12/29/2020 12:00 PM CDT Home Care Visit 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 Gender Identity Not on file Sexual Orientation Not on file documented as of this encounter Last Filed Vital Signs Vital Sign Reading Time Taken Comments Blood Pressure 110/70 12/29/2020 11:56 AM CDT Pulse 100 12/29/2020 11:56 AM CDT Temperature 36.7 ??C (98 ??F) 12/29/2020 11:56 AM CDT Respiratory Rate 18 12/29/2020 11:56 AM CDT Oxygen Saturation 95% 12/29/2020 11:56 AM CDT Inhaled Oxygen Concentration - - Weight - - Height - - Body Mass Index - - documented in this encounter Plan of Treatment Not on file documented as of this encounter Visit Diagnoses Not on filedocumented in this encounter Home Health Visit - Care Plan Visit Details Visit Type -SN Home Visit Discipline -Usp Problems Problem Description Start Date Status Goals Interve ntions Wound Risk of Infection Disciplines: Usp, Physical Therapy Risk of infections related to wounds 12/26/2020 Active 1 goal linked to scheduled/documen corey intervention 2 goal interventions scheduled/document ed in this visit Wound Education and Management Disciplines: Usp, Physical Therapy 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 12/26/2020 Active 1 goal linked to scheduled/documen corey intervention 1 goal intervention scheduled/document ed in this visit Wound Care Disciplines: Usp, Physical Therapy #1 LEFT ARM Wound care needed 12/26/2020 Active 1 goal linked to scheduled/documen corey intervention 1 goal intervention scheduled/document ed in this visit Wound Care Disciplines: Usp, Physical Therapy #4 RIGHT INDEX FINGER Wound care needed 12/26/2020 Active 1 goal linked to scheduled/documen corey intervention 1 goal intervention scheduled/document ed in this visit Homebound Status Disciplines: Usp, Physical Therapy Patient's homebound status 12/26/2020 Active 1 goal linked to scheduled/documen corey intervention 1 goal intervention scheduled/document ed in this visit Monitor patient's vital signs every home health visit Disciplines: Usp, Physical Therapy Monitor patient's vital signs every home health visit. 12/26/2020 Active 1 goal linked to scheduled/documen corey intervention 1 goal intervention scheduled/document ed in this visit Standardized Guidelines Disciplines: Usp, Physical Therapy Standardized Guidelines 12/26/2020 Active 1 goal linked to scheduled/documen corey intervention 1 goal intervention scheduled/document ed in this visit Fall Precautions/Saf ety Concerns Disciplines: Usp, Physical Therapy Alteration in safety 12/26/2020 Active 1 goal linked to scheduled/documen corey intervention 1 goal intervention scheduled/document ed in this visit Wound Care Disciplines: Usp, Physical Therapy #3 LEFT POSTERIOR THIGH SURGICAL SITE Wound care needed 12/26/2020 Active 1 goal linked to scheduled/documen corey intervention 1 goal intervention scheduled/document ed in this visit Wound Care Disciplines: Usp, Physical Therapy Wound care needed #4 RIGHT HAND INDEX FINGER 12/26/2020 Active 1 goal linked to scheduled/documen corey intervention 1 goal intervention scheduled/document ed in this visit Wound Care Disciplines: Usp, Physical Therapy #5 LEFT FOOT Wound care needed 12/26/2020 Active 1 goal linked to scheduled/documen corey intervention 1 goal intervention scheduled/document ed in this visit Wound Care Disciplines: Usp, Physical Therapy #6 RIGHT LEG Wound care needed 12/26/2020 Active 1 goal linked to scheduled/documen corey intervention 1 goal intervention scheduled/document ed in this visit Wound Care Disciplines: Usp, Physical Therapy #7 RIGHT ANKLE Wound care [...] visit during episode of care Description: Home machine sole leveler to measure vital signs during every home [...] Intervention Associated Problem/Goal Status Variance Visit Notes Instruct Hand Washing Description: Instruct patient/caregiver on hand wash technique Problem:Wound Risk of Infection Goal:Knowledgeable of infection Completed sn instructed patient to wash hands frequently patient verbalized understanding Instruct on the signs and symptoms of infection Description: Assess wound with each visit for s/sx of infection Problem:Wound Risk of Infection Goal:Knowledgeable of infection Completed sn instructed patient on s/s of infection redness warmth pain drainage odor temprature notify doctor patient verbalized understanding Hydration for Wound Healing Description: Instruct on adequate hydration for wound healing, generally 6.5-8 cups (52-64oz/day). Unless health professional has suggested a fluid restriction Problem:Wound Education and Management Goal:Knowledgeable on Woundcare Completed sn instructed patient on hydration 6.5-8 cups daily to promote wound healingpatient verbalizes understandingpatient verbalizes understanding Perform dressing change Description: Perform dressing change: Site #1 LEFT ARM to perform dressing change as of 12/26/20 Frequency DAILY and PRN for excess drainage or dislodgement of dressing. Wound care as follows: KEEP DRY , apply GAUZE To wound bed, WRAP WITH GAUZE AND SECURE WITH TAPE OF CHOICE PER SN OR MD Problem:Wound Care Goal:Progression towards healing Completed sn assessed wound sutures intact no s/s of infection patient tolerated well Perform dressing change Description: Perform dressing change: Site #4 RIGHT INDEX FINGER SN OR CAREGIVER to perform dressing change as of 12/26/20 Frequency DAILY and PRN for excess drainage or dislodgement of dressing. Wound care as follows: KEEP CLEAN AND DRY apply GAUZE to wound bed, WRAP WITH GAUZE and secure with TAPE OF CHOICE. Problem:Wound Care Goal:Progression towards healing Completed sn assessed wound sutures intact no s/s of infection open to air patient tolerated well Homebound Status Description: Patient is homebound due [...] health visit during episode of care Completed WNL Home Care Staff Absence Description: In absence of Home Care staff the patient/caregiver should CALL SN OR MD WITH CONCERNS. Problem:Standardize d Guidelines Goal:Understanding of when to notify MD in absence of home care staff Completed patient family available to provide care in absence of home care staff High Fall Risk Precautions Description: Instruct patient/caregiver in methods to prevent falls Problem:Fall Precautions/Safety Concerns Goal:Demonstrate use of safety precautions Completed sn instructed patient on fall prevention to insure pathway free of debris insure wc/walker in locked position when standing up/down if any feelings of dizziness upon standing sit back down till it passess patient verbalized understanding Perform dressing change Description: Perform dressing change: SITE #3 LEFT POSTERIOR THIGH SURGICAL SITE SN OR CAREGIVER to perform dressing change as of 12/26/20 Frequency DAILY and PRN for excess drainage or dislodgement of dressing. Wound care as follows: KEEP WOUND DRY , apply GAUZE to wound bed, AND SECURE WITH TAPE OF CHOICE. Problem:Wound Care Goal:Progression towards healing Completed unable to assess Perform dressing change Description: Perform dressing change: Site #4 RIGHT HAND INDEX FINGER SN OR CAREGIVER } to perform dressing change as of 12/26/20 Frequency DAILY and PRN for excess drainage or dislodgement of dressing. Wound care as follows: KEEP CLEAN AND DRY AND MAY LEAVE OPEN TO AIR. Problem:Wound Care Goal:Progression towards healing Completed sn assessed wound sutures intact no s/s of infection open to air patient tolerated well Perform dressing change Description: Perform dressing change: #5 LEFT FOOT NON-REMOVEABLE SPLINT AND WRAP IN PLACE. Problem:Wound Care Goal:Progression towards healing Completed unable to assess Perform dressing change Description: Perform dressing change: Site #6 RIGHT LEG SN OR CAREGIVER, NON-REMOVEABLE CAST IN PLACE. KEEP CLEAN AND DRY Problem:Wound Care Goal:Progression towards healing Completed unable to assess Perform dressing change Description: Perform dressing change: Site #7 RIGHT ANKLE SN OR CAREGIVER KEEP CAST IN PLACE DRY AND INTACT. Problem:Wound Care Goal:Progression towards healing Completed sn assessed cast intact patient tolerated well documented in this encounter Home Health Visit - Actions and Narratives Actions see intervention note documented in this encounter Care Teams Needle Polisher Relationship Specialty Start Date End Date Unknown, Notinfile PCP - General 12/25/20 02/27/21 No, Physician 12/09/20 documented as of this encounter
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
--- OUTSIDE RECORDS SUMMARY | 2024-09-11 03:20 | XMS_ITS | Encounter Summary ---
Author Organization [facility] Home Care Servic es Address [address] [place] [address] Phone Care Team Providers Care Technical Sales Specialist Name Role Phone Unknown, Notinfile Primary Care Provider Unavail able No, Physician Unavailable Reason for Visit * Reason Comments Pain * Auth/Cert Specialty Diagnoses / Procedures Referred By Dank ashley Referred To Contact Referral ID Status Reason Start Date Expiration Date Visits Re quested Visits Authorized [id number] 1 1 Encounter Details Date Type Department Care Team (Latest Contact Info) Description 12/26/2020 11:30 AM CDT Home Care Visit [facility] [address] [place] [address] Blanquita Kay RN SN NON OASIS START OF CARE Social History Tobacco Use Types Packs/Day Years Used Date Smoking Tobacco: Never Smokeless Tobacco: Never Alcohol Use Standard Drinks/Week Comments Yes 0 (1 standard drink = 0.6 oz pur e alcohol) Sex and Gender Information Value Date Recorded Sex Assigned at Not on file 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 Gender Identity Not on file Sexual Orientation Not on file documented as of this encounter Last Filed Vital Signs Vital Sign Reading Time Taken Comments Blood Pressure 106/70 12/26/2020 11:21 AM CDT Pulse 114 12/26/2020 11:21 AM CDT Temperature 36.8 ??C (98.2 ??F) 12/26/2020 11:21 AM C DT Respiratory Rate 18 12/26/2020 11:21 AM CDT Oxygen Saturation 98% 12/26/2020 11:21 AM CDT Inhaled Oxygen Concentration - - Weight 84.8 kg (187 lb) 12/26/2020 11:21 AM CDT Height 177.8 cm (5' 10 ) 12/26/2020 11:21 AM CDT Body Mass Index 26.83 12/26/2020 11:21 AM CDT documented in this encounter Plan of Treatment Not on file documented as of this encounter Visit Diagnoses Not on filedocumented in this encounter Home Health Visit - Care Plan Visit Details Visit Type -SN Non-OASIS Sta rt of Care Discipline -Alf Problems Problem Description Start Date Status Goals Interventions Wound Education and Management Disciplines: Alf, Physical Therapy 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 12/26/2020 Active 1 goal linked to scheduled/docume nted intervention 3 goal interventions scheduled/documen corey in this visit Wound Care Disciplines: Alf, Physical Therapy #1 LEFT ARM Wound care needed 12/26/2020 Active 1 goal linked to scheduled/docume nted intervention 1 goal intervention scheduled/documen corey in this visit Wound Care Disciplines: Alf, Physical Therapy #4 RIGHT INDEX FINGER Wound care needed 12/26/2020 Active 1 goal linked to scheduled/docume nted intervention 1 goal intervention scheduled/documen corey in this visit Homebound Status Disciplines: Alf, Physical Therapy Patient's homebound status 12/26/2020 Active 1 goal linked to scheduled/docume nted intervention 1 goal intervention scheduled/documen corey in this visit Monitor patient's vital signs every home health visit Disciplines: Alf, Physical Therapy Monitor patient's vital signs every home health visit. 12/26/2020 Active 1 goal linked to scheduled/docume nted intervention 1 goal intervention scheduled/documen corey in this visit Standardized Guidelines Disciplines: Alf, Physical Therapy Standardized Guidelines 12/26/2020 Active 1 goal linked to scheduled/docume nted intervention 2 goal interventions scheduled/documen corey in this visit Fall Precautions/Saf ety Concerns Disciplines: Alf, Physical Therapy Alteration in safety 12/26/2020 Active 1 goal linked to scheduled/docume nted intervention 1 goal intervention scheduled/documen corey in this visit DVT Prevention and Management Disciplines: Alf, Physical Therapy Management of anticoagulation therapy 12/26/2020 Active 1 goal linked to scheduled/docume nted intervention 1 goal intervention scheduled/documen corey in this visit Wound Care Disciplines: Alf, Physical Therapy #3 LEFT POSTERIOR THIGH SURGICAL SITE Wound care needed 12/26/2020 Active 1 goal linked to scheduled/docume nted intervention 1 goal intervention scheduled/documen corey in this visit Wound Care Disciplines: Alf, Physical Therapy Wound care needed #4 RIGHT HAND INDEX FINGER 12/26/2020 Active 1 goal linked to scheduled/docume nted intervention 1 goal intervention scheduled/documen corey in this visit Wound Care Disciplines: Alf, Physical Therapy #5 LEFT FOOT Wound care needed 12/26/2020 Active 1 goal linked to scheduled/docume nted intervention 1 goal intervention scheduled/documen corey in this visit Wound Care Disciplines: Alf, Physical Therapy #6 RIGHT LEG Wound care needed 12/26/2020 Active 1 goal linked to scheduled/docume nted intervention 1 goal intervention scheduled/documen corey in this visit Wound Care Disciplines: Alf, Physical Therapy #7 RIGHT ANKLE Wound care needed 12/26/2020 Active 1 goal linked to scheduled/docume nted intervention 1 goal intervention scheduled/documen corey in this visit Goals Goal Associated Problem [...] visit during episode of care Description: Home negotiator to measure vital signs during every home [...] of safety precautions Fall Precautions/Safety Concerns No Demonstrate knowledge of anticoagulant therapy Description: Demonstrate knowledge of anticoagulant therapy. DVT Prevention and Management No Progression towards healing Description: [...] Intervention Associated Problem/Goal Status Variance Visit Notes Hydration for Wound Healing Description: Instruct on adequate hydration for wound healing, generally 6.5-8 cups (52-64oz/day). Unless health professional has suggested a fluid restriction Problem:Wound Education and Management Goal:Knowledgeable on Woundcare Completed Instruct on adequate hydration for wound healing, generally 6.5-8 cups (52-64oz/day). Unless health professional has suggested a fluid restriction Demonstration of Wound Care Description: Patient/caregiver will complete a return demonstration on wound care to SN or PT. Observed return wound care on 12/26/20 Problem:Wound Education and Management Goal:Knowledgeable on Woundcare Completed Patient/caregiver will complete a return demonstration on wound care to SN or PT. Observed return wound care on 12/26/20 Educate on Wound Care Management Description: Instruct patient/caregiver on wound care per MD orders per Wound Education Booklet, may include written directions and or photos for patient/caregiver education. Problem:Wound Education and Management Goal:Knowledgeable on Woundcare Completed Instruct patient/caregiver on wound care per MD orders per Wound Education Booklet, may include written directions and or photos for patient/caregiver education. Perform dressing change Description: Perform dressing change: [...] health visit during episode of care Completed Home Care Staff Absence Description: In absence of Home Care staff the patient/caregiver should CALL SN OR MD WITH CONCERNS. Problem:Standardized Guidelines Goal:Understanding of when to notify MD in absence of home care staff Completed In absence of Home Care staff the patient/caregiver should CALL SN OR MD WITH CONCERNS. Physician notification Description: Use standardized clinical guidelines for notifying physician of abnormal vital signs or clinical findings Problem:Standardized Guidelines Goal:Understanding of when to notify MD in absence of home care staff Completed NOTIFIED OF HOMECARE ADMISSION AND FREQUENCY AND WOUND ORDERS RECIEVED. [place] Fall Precautions Description: Assess patient safety Problem:Fall Precautions/Safety Concerns Goal:Demonstrate use of safety precautions Completed Instruct on the prevention of deep vein thrombosis Description: Instruct patient/caregiver on precautions per tip sheet and provide ongoing home support based on patient needs Problem:DVT Prevention and Management Goal:Demonstrate knowledge of anticoagulant therapy Completed Instruct patient/caregiver on precautions per tip sheet and provide ongoing home support based on patient needs Perform dressing change Description: Perform dressing change: [...] KEEP CAST IN PLACE DRY AND INTACT. documented in this encounter Home Health Visit - Actions and Narratives Actions INCISION TO LEFT FOREARM 16. OCM INCISION TO INNER LEFT FOREARM 1.0 CM SUTURES TO RIGHT INDEX FINGER 2.0CM CAST TO RIGHT LEG SPLINT TO LEFT LEG PT VERY GROGGY AND DROWSY DURING STAY documented in this encounter Care Teams Technical Sales Specialist Relationship Specialty Start Date End Date Unknown, Notinfile PCP - General 12/25/20 02/27/21 No, Physician 12/09/20 documented as of this encounter
--- OUTSIDE RECORDS SUMMARY | 2024-09-11 03:20 | XMS_ITS | Encounter Summary ---
Author Organization [facility] Home Care Servic es Address [address] [place] [address] Phone Care Team Providers Care Technology Architect Name Role Phone Unknown, Darian Primary Care Provider Unavail able No, Physician Unavailable Reason for Visit * Auth/Cert Specialty Diagnoses / Procedures Referred By Dank t Referred To Contact Referral ID Status Reason Start Date Expiration Date Visits Re quested Visits Authorized [id number] 1 1 Encounter Details Date Type Department Care Team (Late st Contact Info) Description 01/09/2021 Home Care Visit [facility] Home Health [address] [address] [address] [place] [address] Balnquita Kay RN TRAVEL SCREENING CASE COMMUNICATION Social History Tobacco Use Types Packs/Day Years Used Date Smoking Tobacco: Never Smokeless Tobacco: Never Alcohol Use Standard Drinks/Week Comments Yes 0 (1 standard drink = 0.6 oz pur e alcohol) Sex and Gender Information Value Date Recorded Sex Assigned at Not on file 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
--- OUTSIDE RECORDS SUMMARY | 2024-09-11 03:20 | XMS_ITS | Encounter Summary ---
Author Organization [facility] Address [address] [place] [address] Phone Care Team Providers Care Refuse Driver Name Role Phone Unknown, Notinfile Primary Care Provider Unavail able No, Physician Unavailable Reason for Visit * Reason Comments Post-op Encounter Details Date Type Department Care Team (Late st Contact Info) Description 01/17/2021 10:00 AM CDT Office Visit [facility] Orthopaedic Surgery [address] [facility] Advanced [facility] 6th [place] [address] [place] [address] No Thomas MD [address] [place] [address] Open displaced fracture of body of right [...] on file 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 Patient comes in today for wound check; all incisions and pin sites on right leg with mild fibrinous exudate which was cleaned out in clinic today. Wet to dry teaching. Will recheck in two weeks.Bactrim in the interim. documented in this encounter Plan of Treatment Not on file documented as of this encounter Visit Diagnoses Diagnosis Open displaced fracture of body of right calcaneus with routine healing, subsequent encounter- Primary Pilon fracture of right tibia, closed, initial encounter documented in this encounter Care Teams Refuse Driver Relationship Specialty Start Date End Date Unknown, Notinfile PCP - General 12/25/20 02/27/21 No, Physician 12/09/20 documented as of this encounter
--- OUTSIDE RECORDS SUMMARY | 2024-09-11 03:20 | XMS_ITS | Encounter Summary ---
Author Organization [facility] Address [address] [place] [address] Phone Care Team Providers Care Zigzag Appliquer Name Role Phone No, Physician Unavailable No, Physician Primary Care Provider [phone] Reason for Referral * Consultation (Routine) - Closed Specialty Diagnoses / Procedures Referred By Dank ashley Referred To Contact Physical Therapy Diagnoses Open displaced fracture of body of right calcaneus with routine healing, subsequent encounter Pilon fracture of right tibia, closed, initial encounter Closed nondisplaced fracture of left calcaneus with routine healing, unspecified portion of calcaneus, subsequent encounter No Thomas MD Phone: tel: [address] [address] Phone: tel: fax: Referral ID Status Reason Start Date Expiration Date V isits Requested Visits Authorized [id number] Closed Specialty Services Required 02/28/2021 03/30/2022 12 12 Question Answer PTRFR PT Evaluate and Treat Therapy options discussed with patient? Yes Location provided for therapy services is: Patient requested/Patient preferred Please select the performing region: External Order [[id number]] To loc/pos [facility] [[id number]] Comments Please see patient two times a week for six weeks. Work on active ankle and subtalar range of motion, focusing on dorsiflexion; RLE WBAT; LLE advance from toe-touch weight bearing to weight-bearing as tolerated over the next 4 weeks as tolerated in CAM boot; okay to remove CAM boot for range of motion exercises. * Diagnostic Imaging (Routine) - Closed Specialty [...] More Views No Thomas MD Phone: tel: [facility] Referral ID Status Reason Start Date Expiration Date Visits Re quested Visits Authorized [id number] Closed 02/28/2021 03/30/2022 1 1 * Diagnostic [...] More Views No Thomas MD Phone: tel: [facility] Referral ID Status Reason Start Date Expiration Date Visits Re quested Visits Authorized [id number] Closed 02/28/2021 03/30/2022 1 1 * Diagnostic [...] More Views No Thomas MD Phone: tel: [facility] Referral ID Status Reason Start Date Expiration Date Visits Re quested Visits Authorized [id number] Closed 02/28/2021 03/30/2022 1 1 * Diagnostic Imaging (Routine) - Closed Specialty Diagnoses / Procedures Referred By Contac t Referred To Contact Diagnoses Pilon fracture of right tibia, closed, initial encounter Procedures XR Ankle Right 3 or More Views No Thomas MD Phone: tel: [facility] Referral ID Status Reason Start Date Expiration Date Visits Re quested Visits Authorized [id number] Closed 02/22/2021 03/24/2022 1 1 * Diagnostic Imaging (Routine) - Closed Specialty Diagnoses / Procedures Referred By Contac t Referred To Contact Diagnoses Open displaced fracture of body of right calcaneus with routine healing, subsequent encounter Procedures XR Calcaneus Right 2 or More Views No Thomas MD Phone: tel: [facility] Referral ID Status Reason Start Date Expiration Date Visits Re quested Visits Authorized [id number] Closed 02/22/2021 03/24/2022 1 1 * Diagnostic Imaging (Routine) - Closed Specialty Diagnoses / Procedures Referred By Contac t Referred To Contact Diagnoses Closed nondisplaced fracture of left calcaneus with routine healing, unspecified portion of calcaneus, subsequent encounter Procedures XR Calcaneus Left 2 or More Views No Thomas MD Phone: tel: [facility] Referral ID Status Reason Start Date Expiration Date Visits Re quested Visits Authorized [id number] Closed 02/22/2021 03/24/2022 1 1 Reason for Visit * Reason Comments Fracture Follow-up Follow-up Fracture Follow-up Fracture Encounter Details Date Type Department Care Team (Latest Contact Info) Description 02/28/2021 1:30 PM CDT Office Visit [facility] Orthopaedic Surgery [address] [place] [address] Advanced Medicine 6th [place] [address] [place] [address] No Thomas MD [address] [place] [address] Open displaced fracture of body of right calcaneus with routine healing, subsequent encounter (Primary Dx); Pilon fracture of right tibia, closed, initial encounter; Closed nondisplaced fracture of left calcaneus with routine healing, unspecified portion of calcaneus, subsequent encounter Social History Tobacco Use Types Packs/Day [...] on file 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 Denies fevers, chills, wound redness or drainage. Pain: mild. Taking n/a for DVT prophylaxis. Objective: Patient is healthy-appearing and well-groomed, in no apparent distress. Patient is oriented to time, place, and person. Incision healing well, granulation tissue at lateral heel on right and pin site on right proximally, minimal erythema around incisions; no deformity or crepitation. Range of motion: diminished range with pain. Leg warm and well-perfused, capillary refill <2 seconds. Ankle plantar-/dorsiflexion and EHL strength 5/5. Superficial and deep peroneal and tibial nerve sensation normal. Imaging: Bilateral calcaneus and left pilon fracture healing well in proper alignment. No sign of hardware loosening or breakage. I independently reviewed and interpreted this xray and the patient's prior xrays. Assessment: Mr. Deluna is a 50 y.o. male who sustained a left side pilon and bilateral calcaneus fracture with operative management on 12/19-. Plan: -- Weight bearing status: advance to WBAT over next 6-8 weeks. PT prescription given. -- Return to clinic in 2 months with repeat radiographs (AP/lateral ankle and calcaneus). -- No further pain medication; patient is taking over the counter only. -- DVT prophylaxis: mobilize -- Call with any questions. -- Work status: sedentary documented in this encounter Plan of Treatment Scheduled Referrals Name Type Priority Associated Diagnoses Orde r Schedule Ambulatory referral order to Physical Therapy - Outpatient Referral Routine Open displaced fracture of body of right calcaneus with routine healing, subsequent encounter Pilon fracture of right tibia, closed, initial encounter Closed nondisplaced fracture of left calcaneus with routine healing, unspecified portion of calcaneus, subsequent encounter Ordered: 02/28/2021 documented as of this encounter Results * XR Calcaneus Right [...] agrees with it. Electronically signed by: Abdiel Umanozr M.D. us No Thomas MD IMG XR [...] healing, unspecified portion of calcaneus, subsequent encounter Pilon fracture of right tibia, closed, initial encounter Closed nondisplaced fracture of left calcaneus with routine healing, unspecified portion of calcaneus, subsequent encounter Open displaced fracture of body of right calcaneus with routine healing, subsequent encounter Open displaced fracture of body of right calcaneus with routine healing, subsequent encounter Pilon fracture of right tibia, closed, initial encounter Closed nondisplaced fracture of left calcaneus with routine healing, unspecified portion of calcaneus, subsequent encounter Left wrist pain Pain in joint, forearm documented in this encounter Discontinued Medications Medication Sig Discontinue Reason Start Date End Da te oxyCODONE (ROXICODONE) 5 mg immediate release tabletIndications:Pain Take 1 tablet (5 mg total) by mouth every 4 (four) hours as needed for pain Therapy completed 08/08/2020 02/28/2021 oxyCODONE (ROXICODONE) 5 mg immediate release tabletIndications:Pain Take 1 tablet (5 mg total) by mouth every 4 (four) hours as needed for pain Therapy completed 08/08/2020 02/28/2021 polyvinyl alcohol-povidone (REFRESH CLASSIC) 1.4-0.6 % dropperette Administer 1 drop into both eyes as needed for dry eyes Therapy completed 02/28/2021 acetaminophen (TYLENOL) 325 mg tablet Take 650 mg by mouth every 6 (six) hours as needed for pain Therapy completed 02/28/2021 acetaminophen-aspirin- caffeine (EXCEDRIN MIGRAINE) 250-250-65 mg per tablet Take 1 tablet by mouth every 6 (six) hours as needed for headaches Therapy completed 02/28/2021 bacitracin-polymyxin B (POLYSPORIN) ointmentIndications:Mi nor Bacterial Skin Infections,wound care Apply 1 application topically 2 (two) times a day Therapy completed 08/08/2020 02/28/2021 erythromycin (ILOTYCIN) ophthalmic ointment Apply to left eye 2 (two) times a day Therapy completed 02/28/2021 documented as of this encounter Care Teams Zigzag Appliquer Relationship Specialty Start Date End Date No, Physician PCP - General 02/28/21 No, Physician 12/09/20 documented as of this encounter
--- OUTSIDE RECORDS SUMMARY | 2024-09-11 03:20 | XMS_ITS | Encounter Summary ---
Author Organization [facility] Address [address] [place] [address] Phone Care Team Providers Care Quality Systems Specialist Name Role Phone Unknown, Innanfpamella Primary Care Provider Unavail able No, Physician Unavailable Reason for Visit * Auth/Cert Specialty Diagnoses / Procedures Referred By Dank t Referred To Contact Referral ID Status Reason Start Date Expiration Date Visits Re quested Visits Authorized [id number] 1 1 Encounter Details Date Type Department Care Team (Late st Contact Info) Description 12/26/2020 Home Care Visit [facility] - [address] [address] [address] [place] [address] Blanquita Kay RN SBAR-START OF CARE/RESUMPTION Social History Tobacco Use Types Packs/Day Years Used Date Smoking Tobacco: Never Smokeless Tobacco: Never Alcohol Use Standard Drinks/Week Comments Yes 0 (1 standard drink = 0.6 oz pur e alcohol) Sex and Gender Information Value Date Recorded Sex Assigned at Not on file 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
--- OUTSIDE RECORDS SUMMARY | 2024-09-11 03:20 | XMS_ITS | Encounter Summary ---
Author Organization [facility] Address [address] [place] [address] Phone Care Team Providers Care Mobility Manager Name Role Phone No, Physician Unavailable No, Physician Primary Care Provider [phone] Reason for Referral * Diagnostic Imaging (Routine) - Closed Specialty Diagnoses / Procedures Referred By Dank ashley Referred To Contact Diagnoses Open displaced fracture of body of right calcaneus with routine healing, subsequent encounter Pilon fracture of right tibia, closed, initial encounter Closed nondisplaced fracture of left calcaneus with routine healing, unspecified portion of calcaneus, subsequent encounter Procedures XR Wrist Left 3 or More Views No Thomas MD Phone: tel: [facility] Referral ID Status Reason Start Date Expiration Date Visits Re quested Visits Authorized [id number] Closed 04/25/2021 05/25/2022 1 1 Reason for Visit * Reason Comments Fracture Follow-up Follow-up Fracture Follow-up Fracture Encounter Details Date Type Department Care Team (Latest Contact Info) Description 04/25/2021 10:45 AM CDT Office Visit [facility] Orthopaedic Surgery [address] [facility] 6th [place] [address] [place] [address] No Thomas MD [address] [place] [address] Open displaced fracture of body of right [...] on file 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 Denies fevers, chills, wound redness or drainage. Pain: mild. Taking n/a for DVT prophylaxis. Objective: Well-developed, well-nourished, in no acute distress. Alert and oriented x 3. Normal respirations, no dyspnea with speaking. The injured extremity shows: normal stability, strength, sensation; incisions healing well. Left wrist with limited range of motion including supination/pronation and flexion/extension, whichare worse since his injury. Imaging Calcaneus and pilon fracture healing well in proper alignment. No sign of hardware loosening or breakage. I independently reviewed and interpreted this xray and the patient's prior xrays. Assessment: Mr. Deluna is a 50 y.o. male who sustained a right side pilon and bilateral calcaneus fracture with operative management on 12/19-. Plan: 1) Continue WBAT, advised compression socks and supportive shoe wear. 2) Return to clinic as needed with any other concerns. 3) Pt no longer taking narcotic pain medication, continue tylenol as needed. 4) DVT prophylaxis discontinued. 5) Call with any questions. 6) Work status: light duty 7) Wrist xrays today, follow up with hand PRN. 8) Neurorehab referral for ongoing confusion after head injury. Mother present for visit today. documented in this encounter Plan of Treatment Not on file documented as of this encounter Results * XR Wrist Left 3 or More [...] calcaneus, subsequent encounter documented in this encounter Care Teams Mobility Manager Relationship Specialty Start Date End Date No, Physician PCP - General 02/28/21 No, Physician 12/09/20 documented as of this encounter
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
--- OUTSIDE RECORDS SUMMARY | 2024-09-11 03:20 | XMS_ITS | Encounter Summary ---
Author Organization [facility] Address [address] [place] [address] Phone Care Team Providers Care Refrigeration Operator Name Role Phone Unknown, Notinfile Primary Care Provider Unavail able No, Physician Unavailable Reason for Visit * Reason Onset Date Comments POST DISCHARGE CALL 12/27/2020 Encounter Details Date Type Department Care Team (Late st Contact Info) Description 12/27/2020 Telephone [facility] Surgery [address] [place] [address] [place] [address] Rachana Eugene RMA POST DISCHARGE CALL Social History Tobacco Use Types Packs/Day Years Used Date Smoking Tobacco: Never Smokeless Tobacco: Never Alcohol Use Standard Drinks/Week Comments Yes 0 (1 standard drink = 0.6 oz pur e alcohol) Sex and Gender Information Value Date Recorded Sex Assigned at Not on file 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 Phone number is not a working number. VAIBHAV Ortiz documented in this encounter Plan of Treatment Not on file documented as of this encounter Visit Diagnoses Not on filedocumented in this encounter Care Teams Refrigeration Operator Relationship Specialty Start Date End Date Unknown, Notinfile PCP - General 12/25/20 02/27/21 No, Physician 12/09/20 documented as of this encounter
--- OUTSIDE RECORDS SUMMARY | 2024-09-11 03:20 | XMS_ITS | Encounter Summary ---
Author Organization [facility] Address [address] [place] [address] Phone Care Team Providers Care Valve Repairer Name Role Phone Unknown, Notinfile Primary Care Provider Unavail able No, Physician Unavailable Encounter Details Date Type Department Care Team (Late st Contact Info) Description 01/04/2021 Telephone [facility] Ophthalmology [address] [place] [address] 1[address] [place] [address] Holly Albarado, SAMI Social History Tobacco Use Types Packs/Day Years Used Date Smoking Tobacco: Never Smokeless Tobacco: Never Alcohol Use Standard Drinks/Week Comments Yes 0 (1 standard drink = 0.6 oz pur e alcohol) Sex and Gender Information Value Date Recorded Sex Assigned at Not on file 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 Scheduled the patient in Ret[facility] January 10 due to patient stating not worse. Getting better, just not right documented in this encounter Plan of Treatment Not on file documented as of this encounter Visit Diagnoses Not on filedocumented in this encounter Care Teams Valve Repairer Relationship Specialty Start Date End Date Unknown, Darian PCP - General 12/25/20 02/27/21 No, Physician 12/09/20 documented as of this encounter
--- OUTSIDE RECORDS SUMMARY | 2024-09-11 03:21 | XMS_ITS | Encounter Summary ---
Author Organization [facility] Address [address] [place] [address] Care Team Providers Care Speeder Hand Name Role Phone Unknown, Notinfile Primary Care Provider Unavail able No, Physician Unavailable No, Physician Primary Care Provider [phone] Encounter Details Date Type Department Care Team (Latest Contact Info) Description 12/25/2020 Ophth Exam Ophthalmology Maribeth Redd MD PhD [address] [place] [address] Social History Tobacco Use Types Packs/Day Years Used Date Smoking Tobacco: Never Smokeless Tobacco: Never Alcohol Use Standard Drinks/Week Comments Yes 0 (1 standard drink = 0.6 oz pur e alcohol) Sex and Gender Information Value Date Recorded Sex Assigned at Not on file 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 Gender Identity Not on file Sexual Orientation Not on file documented as of this encounter Plan of Treatment Not on file documented as of this encounter Visit Diagnoses Not on filedocumented in this encounter Eye Exam Visual Acuity (Snellen - Linear) Right eye Left eye Near cc 20/20-3 20/400-1 PH 20/2 00 -2 Correction: Glasses Tonometry (Tonopen, 9:36 AM) Right eye Left eye Pressure 12 13 Pupils Dark Light Shape React APD Right eye 2 1 Round Brisk None Left eye 5.5 5.5 Round MR None Visual Doyle Right eye Left eye Full Restrictions Partial outer eaton perior nasal deficiency Extraocular Movement Right eye Left eye Full Full External Exam Right eye Left eye External Normal Normal Slit Lamp Exam Right eye Left eye Lids/Lashes Normal Normal Conjunctiva/Sclera White and quiet White and kilo et Cornea Clear, no Epithelial defect Brionna r, no Epithelial defect Anterior Chamber Deep and formed Deep and quiet, Iris Round and reactive ovoid extendi ng ST, NR Lens PCIOL Tr NS Anterior Vitreous Normal Normal Fundus Exam Right eye Left eye Posterior Vitreous Dispersed vit heme mostly settled inferiorly but still with few strands throughout, view continues to improve, starting to dehemoglobinize Disc crisp margins, n o pallor, no edema Macula trace overlying vit heme strands, grossly flat, attached Vessels Normal c/c Periphery Dispersed vit he me strands but mostly settled inferiorly, grossly attached 360, no retinal detachment (RD) appreciated on bscan Care Teams Speeder Hand Relationship Specialty Start Date End Date Unknown, Notinfile PCP - General 12/25/20 02/27/21 No, Physician PCP - General 02/28/21 No, Physician 12/09/20 documented as of this encounter
--- OUTSIDE RECORDS SUMMARY | 2024-09-11 03:21 | XMS_ITS | Encounter Summary ---
Author Organization [facility] Address [address] [place] [address] Phone Care Team Providers Care Biomedical Field Service Engineer Name Role Phone Unknown, Notinfile Primary Care Provider Unavail able No, Physician Unavailable Encounter Details Date Type Department Care Team (Late st Contact Info) Description 12/25/2020 Telephone [facility] Ophthalmology [address] [place] [address] [place] [address] Holly Albarado COA Social History Tobacco Use Types Packs/Day Years Used Date Smoking Tobacco: Never Smokeless Tobacco: Never Alcohol Use Standard Drinks/Week Comments Yes 0 (1 standard drink = 0.6 oz pur e alcohol) Sex and Gender Information Value Date Recorded Sex Assigned at Not on file 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 Tried both numbers. One not working the other no voicemail set up * Telephone Encounter - Holly Albarado - 12/29/2020 8:49 AM CDT ----- Message from Maribeth Redd MD PhD sent at 12/25/2020 1:59 PM CDT ----- Hello All, Can we please schedule this patient for [facility] for repeat DFEx OU in approximately 2 weeks? He has other appointments at [facility] around that time and lives over an hour away, so he wants to try to arrange this appointment on the same day he'll already be here, if possible. Thank you so much! I boxed him as well. -Maribeth Redd PGY-2 * Telephone Encounter - Holly Albarado - 12/25/2020 2:39 PM CDT Called patient. To schedule per in basket. Number not working * Telephone Encounter - Holly Albarado - 12/25/2020 2:38 PM CDT ----- Message from Maribeth Redd MD PhD sent at 12/25/2020 1:59 PM CDT ----- Hello All, Can we please schedule this patient for [facility] for repeat DFEx OU in approximately 2 weeks? He has other appointments at [facility] around that time and lives over an hour away, so he wants to try to arrange this appointment on the same day he'll already be here, if possible. Thank you so much! I boxed him as well. -Maribeth Redd PGY-2 documented in this encounter Plan of Treatment Not on file documented as of this encounter Visit Diagnoses Not on filedocumented in this encounter Care Teams Biomedical Field Service Engineer Relationship Specialty Start Date End Date Unknown, Notinfile PCP - General 12/25/20 02/27/21 No, Physician 12/09/20 documented as of this encounter
--- OUTSIDE RECORDS SUMMARY | 2024-09-11 03:21 | XMS_ITS | Encounter Summary ---
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 open calcaneus fx, R distal tib/fib fx, L acetabular fx, L triquetral fx (wrist) # facial and L orbital fx: L zygomatic, R pterygoid plate, b/l max sinus, L zygomatic fx with L TMJ involvement, R 4th rib fx, and L sacral fx including S3-4 neuroforamen with presacral hematoma. Orthopedic Surgery, ENT, and Opthomalogy consulted. Interval History: 12/23: Pain controlled. PT to evaluate. iWV and splint placed. Tolerating diet 12/22: Continuing PT/OT. Labs stable. WBC with slight increase, likely reactive. Will d/c home with HH once iWV down. 12/21: Returned from the OR with Ortho, iWV and splint placed, pain controlled, advancing diet as tolerated. 12/20: NAEON. OR yesterday for internalization of ex-fix. Still NWB RLE x6 weels. Na 133 (1L FWR). WBC 12.5, afebrile. Will work with PT/OT post-op. Plan to d/c home with HH. Will need to return on 01/02 for right calcaneal repair. 12/19: OR today with Ortho. Pending updated plan. 12/18: Ophtho evaluated today. Recommending e-mycin to lacs. Resolving vitreous hemorrhage. Plan forOR tomorrow for ex-fix reversal. 12/17: Afebrile, tachy 90-110s, Na 135 - improved. Patient states stomach is still distended and needs a BM (minimal prior) - possibly interested in an enema today. 12/16: pain controlled, Tm 98.9, Na 130, fluid restriction placed, gatorade started, +BM. 12/15: Afebrile, tachycardic 90-100s, Na 132 (134) and Cr 0.72. Past void trial. No BM noted, does not want enema yet. Planning for OR with Ortho for R calcaneous/pilon 12/19 12/14: NAEON. Bergman removed. Pending void trial. 12/13: NAEON. OR yesterday with Ortho for calcaneous. Plan to return to OR for ex-fix takedown on 12/19. 12/12: No acute distress or events overnight. OR today with Ortho for ORIF L Calcaneus. Chemical dependency consult. WBC 12.7, afebrile. Hgb 9.3. Na 133. PT/OT. 12/11: Patient with no acute distress or events overnight. Pat s/p OR I&D of ulna, I&D left ankle, R LLE ex-fix placement, R index finger laceration repair, Left thigh laceration. Patient moreaway and C- collar to be removed. Opthalmology exam to be repeated. WBC 13, afebrile. Hgb 10.2 Na 132, FWR. PT/OT. Awaiting Ortho OR plan. 12/10: arrived to floor from ED and proceeded to OR with ortho: LUE I&D, RLE I&D and ex fix,L thigh lac repair - one BP 82/66 ON, quickly corrected to 159/89, likely spurious - admission UDS positive for amphetamines, cannabis, cocaine, fentanyl; ethanol 15 - seen by ENT in ED; plan for delayed operative management, pureed diet, nasal precautions Pain:controlled Nausea: No Flatus: No Bowel Movement: Yes Medications: Current Facility-Administered Medications: acetaminophen (TYLENOL) tablet 1,000 mg, 1,000 mg, oral, Q6H [facility], Juan Gaona MD, 1,000 mg at 12/23/20 1421 cyclobenzaprine (FLEXERIL) tablet 10 mg, 10 mg, oral, TID, Juan Gaona MD, 10 mg at 12/23/20 0957 droperidoL (INAPSINE) injection 0.625 mg, 0.625 mg, intravenous, Once PRN, Selvin Busby MD enoxaparin (LOVENOX) syringe 30 mg, 30 mg, subcutaneous, Q12H MARILUZ, Juan Gaona MD, 30 mg at 12/23/20 0956 erythromycin (ILOTYCIN) 5 mg/gram (0.5 %) ophthalmic ointment, , each eye, BID, Juan Gaona MD,1 application at 12/23/20 0957 gabapentin (NEURONTIN) capsule 300 mg, 300 mg, oral, BID, Juan Gaona MD, 300 mg at 12/23/20 0957 HYDROmorphone (DILAUDID) injection 0.2 mg, 0.2 mg, intravenous, Q4H PRN, Juan Gaona MD, 0.2 mgat 12/23/20 0956 lidocaine (LIDODERM) 5 % patch 1 patch, 1 patch, transdermal, Daily, Juan Gaona MD, Last Rate:0 mL/hr at 12/19/20 1955, 1 patch at 12/23/20 0957 oxyCODONE (ROXICODONE) tablet 10 mg, 10 mg, oral, Q4H PRN, Caty Zuñiga, PAUL, 10 mg at 12/23/20 1421 polyethylene glycol (MIRALAX) packet 17 g, 17 g, oral, Daily, Juan Gaona MD, 17 g at 12/23/20 0956 polyvinyl alcohol-povidone (REFRESH CLASSIC) 1.4-0.6 % ophthalmic solution 1 drop, 1 drop, each eye, QID PRN, Juan Gaona MD senna-docusate (PERICOLACE) 8.6-50 mg per tablet 2 tablet, 2 tablet, oral, BID, Juan Gaona MD,2 tablet at 12/23/20 0957 sodium chloride 0.9% flush 0.5-20 mL, 0.5-20 mL, intra-catheter, Q8H MARILUZ, Juan Gaona MD, 10 mLat 12/23/20 0616 sodium chloride 0.9% flush 0.5-20 mL, 0.5-20 mL, intra-catheter, PRN, Juan Gaona MD, 10 mL at 12/19/201953 white petrolatum 42 % ointment, , topical, TID, Juan Gaona MD, Given at 12/22/202206 Diet: Dietary Orders (From admission, onward) Start Ordered 12/22/20 1653 Oral Nutrition Supplements Select Supplement: Tico - Dagmar With Breakfast and Dinner Question: Select Supplement: Answer: Tico - Dagmar 12/22/20 1652 12/21/20 1234 Adult Diet Regular Diet effective now Question: ([facility]) Diet type Answer: Regular 12/21/20 1234 12/15/20 1111 Oral Nutrition Supplements Select Supplement: Ensure Plus - Geovani All Meals Question: Select Supplement: Answer: Ensure Plus - Geovani 12/15/20 1110 Activity: NWB RLE, LLE, LUE Is&Os: I/O last 2 completed shifts: In: 480 [P.O.:480] Out: 800 [Urine:800] I/O this shift: In: - Out: 700 [Urine:700] Physical Exam: 24hr Min/Max: Temp Min: 36.6 ??C (97.9 ??F) Max: 37.2 ??C (99 ??F) Pulse Min: 107 Max: 111 BP Min: 99/58 Max: 118/58 Resp Min: 16 Max: 18 SpO2 Min: 96 % Max: 99 % Vitals: 12/23/20 1203 BP: 118/58 Pulse: 107 Resp: 18 Temp: 36.6 ??C (97.9 ??F) SpO2: 99% Constitutional: lying in bed in no acute distress Head: normocephalic Neurologic: alert, oriented, conversational, appropriate. Moving all four extremities. 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 Eyes: conjunctivae pink, sclerae anicteric. PERRLA Neck: supple, trachea midline. Chest: symmetric chest wall excursion without visible deformity. Respiratory: no cyanosis. Breathing room air with no use of accessory musculature. IS at bedside. Cardiovascular: Regular rate and rhythm. Normal JVD supine. Gastrointestinal: soft, distended, nontender. No ecchymosis. No rebound/guarding. Musculoskeletal: all limbs soft and compressible. Warm and well perfused throughout. No edema. Post-op splint to RLE and iWV, LUE splint intact, left furry boots. Wiggles toes Skin: grossly without lesion, facial abrasions Labs/Imaging: Recent Results (from the past 24 hour(s)) Basic metabolic panel Collection Time: 12/22/20 10:27 PM Result Value Ref Range Sodium 136 135 - 145 mmol/L Potassium, pl 4.0 3.3 - 4.9 mmol/L Chloride 99 97 - 110 mmol/L CO2 30 22 - 32 mmol/L Anion gap 7 2 - 15 mmol/L BUN 15 8 - 25 mg/dL Creatinine 0.82 0.80 - 1.30 mg/dL Glucose 96 70 - 199 mg/dL Calcium 8.3 (L) 8.5 - 10.3 mg/dL CBC with auto differential Collection Time: 12/22/20 10:27 PM Result Value Ref Range WBC 10.2 (H) 3.8 - 9.9 K/cumm Hgb 7.7 (L) 13.0 - 17.5 g/dL Hct 23.4 (L) 38.9 - 50.3 % Plt 768 (H) 150 - 400 K/cumm MPV 8.6 (L) 9.1 - 12.3 fL RBC 2.39 (L) 4.30 - 5.80 M/cumm MCV 97.9 (H) 81.3 - 96.4 fL MCH 32.2 27.1 - 33.3 pg MCHC 32.9 32.3 - 35.7 g/dL RDW CV 14.1 11.1 - 14.9 % RDW SD 51.4 (H) 35.7 - 48.1 fL NRBC abs 0.00 0.00 - 0.01 K/cumm Differential, auto Collection Time: 12/22/20 10:27 PM Result Value Ref Range Neutrophil abs 7.2 (H) 1.7 - 6.5 K/cumm Imm gran abs 0.1 0.0 - 0.1 K/cumm Lymphocyte abs 1.9 0.8 - 3.3 K/cumm Monocyte abs 0.8 0.2 - 0.8 K/cumm Eosinophil abs 0.2 0.0 - 0.5 K/cumm Basophil abs 0.1 0.0 - 0.1 K/cumm Neutrophil pct 70.3 % Imm gran pct 1.3 % Lymphocyte pct 18.5 % Monocyte pct 7.5 % Eosinophil pct 1.5 % Basophil pct 0.9 % XR Shoulder Left 2 or More Views Result Date: 12/10/2020 Right hand, right wrist: Alignment is normal. No acute fracture. Left shoulder: Alignment is normal. Glenohumeral and acromioclavicular joint spaces are normal. No acute fracture. Left ankle, left foot, left calcaneus: Chronic, healed distal left fibular shaft fracture. Comminuted left calcaneal fracture with central depression. Comminuted, displaced, intra-articular left fifth metatarsal base fracture. Dictated by: Primo Moreno M.D. The radiology attending physician has personally reviewed this study, and had reviewed and/or edited this written report and agrees with it. Electronically signed by: Obey Nichole M.D. XR Radius Ulna Left 2 Views Result Date: 12/10/2020 1. Centrally depressed comminuted right calcaneus fracture. 2. Comminuted and displaced distal right tibial fracture involving the medial and posterior malleoli. Mildly displaced right fibular neck fracture. 3. Mildly displaced left acetabular fracture. 4. Left triquetral avulsion fracture. ADDENDUM - This addendum is being placed on the report for a time dependent finding on a patient who is admitted to the hospital (2B). Upon further review with the attending physician, there is a likely triquetral avulsion fracture. Recommend follow up of the Incidental triquetral fracture Additional Imaging less than 1 month with orthopedic hand service. Dictated by: Primo Moreno M.D. The radiology attending physician has personally reviewed this study, and had reviewed and/or edited this written report and agrees with it. Electronically signed by: Obey Nichole M.D. XR Wrist Left 3 or More Views Result Date: 12/10/2020 1. Centrally depressed comminuted right calcaneus fracture. 2. Comminuted and displaced distal right tibial fracture involving the medial and posterior malleoli. Mildly displaced right fibular neck fracture. 3. Mildly displaced left acetabular fracture. 4. Left triquetral avulsion fracture. ADDENDUM - This addendum is being placed on the report for a time dependent finding on a patient who is admitted to the hospital (2B). Upon further review with the attending physician, there is a likely triquetral avulsion fracture. Recommend follow up of the Incidental triquetral fracture Additional Imaging less than 1 month with orthopedic hand service. Dictated by: Primo Moreno M.D. The radiology attending physician has personally reviewed this study, and had reviewed and/or edited this written report and agrees with it. Electronically signed by: Obey Nichole M.D. XR Wrist Right 3 or More Views Result Date: 12/10/2020 Right hand, right wrist: Alignment is normal. No acute fracture. Left shoulder: Alignment is normal. Glenohumeral and acromioclavicular joint spaces are normal. No acute fracture. Left ankle, left foot, left calcaneus: Chronic, healed distal left fibular shaft fracture. Comminuted left calcaneal fracture with central depression. Comminuted, displaced, intra-articular left fifth metatarsal base fracture. Dictated by: Primo Moreno M.D. The radiology attending physician has personally reviewed this study, and had reviewed and/or edited this written report and agrees with it. Electronically signed by: Obey Nichole M.D. XR Hand Left 3 or More Views Result Date: 12/10/2020 1. Centrally depressed comminuted right calcaneus fracture. 2. Comminuted and displaced distal right tibial fracture involving the medial and posterior malleoli. Mildly displaced right fibular neck fracture. 3. Mildly displaced left acetabular fracture. 4. Left triquetral avulsion fracture. ADDENDUM - This addendum is being placed on the report for a time dependent finding on a patient who is admitted to the hospital (2B). Upon further review with the attending physician, there is a likely triquetral avulsion fracture. Recommend follow up of the Incidental triquetral fracture Additional Imaging less than 1 month with orthopedic hand service. Dictated by: Primo Moreno M.D. The radiology attending physician has personally reviewed this study, and had reviewed and/or edited this written report and agrees with it. Electronically signed by: Obey Nichole M.D. XR Hand Right 3 or More Views Result Date: 12/10/2020 Right hand, right wrist: Alignment is normal. No acute fracture. Left shoulder: Alignment is normal. Glenohumeral and acromioclavicular joint spaces are normal. No acute fracture. Left ankle, left foot, left calcaneus: Chronic, healed distal left fibular shaft fracture. Comminuted left calcaneal fracture with central depression. Comminuted, displaced, intra-articular left fifth metatarsal base fracture. Dictated by: Primo Moreno M.D. The radiology attending physician has personally reviewed this study, and had reviewed and/or edited this written report and agrees with it. Electronically signed by: Obey Nichole M.D. XR Knee Left 1 or 2 Views Result Date: 12/10/2020 1. Centrally depressed comminuted right calcaneus fracture. 2. Comminuted and displaced distal right tibial fracture involving the medial and posterior malleoli. Mildly displaced right fibular neck fracture. 3. Mildly displaced left acetabular fracture. 4. Left triquetral avulsion fracture. ADDENDUM - This addendum is being placed on the report for a time dependent finding on a patient who is admitted to the hospital (2B). Upon further review with the attending physician, there is a likely triquetral avulsion fracture. Recommend follow up of the Incidental triquetral fracture Additional Imaging less than 1 month with orthopedic hand service. Dictated by: Primo Moreno M.D. The radiology attending physician has personally reviewed this study, and had reviewed and/or edited this written report and agrees with it. Electronically signed by: Obey Nichole M.D. XR Knee Right 1 or 2 Views Result Date: 12/10/2020 1. Centrally depressed comminuted right calcaneus fracture. 2. Comminuted and displaced distal right tibial fracture involving the medial and posterior malleoli. Mildly displaced right fibular neck fracture. 3. Mildly displaced left acetabular fracture. 4. Left triquetral avulsion fracture. ADDENDUM - This addendum is being placed on the report for a time dependent finding on a patient who is admitted to the hospital (2B). Upon further review with the attending physician, there is a likely triquetral avulsion fracture. Recommend follow up of the Incidental triquetral fracture Additional Imaging less than 1 month with orthopedic hand service. Dictated by: Primo Moreno M.D. The radiology attending physician has personally reviewed this study, and had reviewed and/or edited this written report and agrees with it. Electronically signed by: Obey Nichole M.D. XR Tibia Fibula Right 2 Views Result Date: 12/10/2020 1. Centrally depressed comminuted right calcaneus fracture. 2. Comminuted and displaced distal right tibial fracture involving the medial and posterior malleoli. Mildly displaced right fibular neck fracture. 3. Mildly displaced left acetabular fracture. 4. Left triquetral avulsion fracture. ADDENDUM - This addendum is being placed on the report for a time dependent finding on a patient who is admitted to the hospital (2B). Upon further review with the attending physician, there is a likely triquetral avulsion fracture. Recommend follow up of the Incidental triquetral fracture Additional Imaging less than 1 month with orthopedic hand service. Dictated by: Primo Moreno M.D. The radiology attending physician has personally reviewed this study, and had reviewed and/or edited this written report and agrees with it. Electronically signed by: Obey Nichole M.D. XR Ankle Left 3 or More Views Result Date: 12/10/2020 Right hand, right wrist: Alignment is normal. No acute fracture. Left shoulder: Alignment is normal. Glenohumeral and acromioclavicular joint spaces are normal. No acute fracture. Left ankle, left foot, left calcaneus: Chronic, healed distal left fibular shaft fracture. Comminuted left calcaneal fracture with central depression. Comminuted, displaced, intra-articular left fifth metatarsal base fracture. Dictated by: Primo Moreno M.D. The radiology attending physician has personally reviewed this study, and had reviewed and/or edited this written report and agrees with it. Electronically signed by: Obey Nichole M.D. XR Ankle Right 3 or More Views Result Date: 12/10/2020 1. Centrally depressed comminuted right calcaneus fracture. 2. Comminuted and displaced distal right tibial fracture involving the medial and posterior malleoli. Mildly displaced right fibular neck fracture. 3. Mildly displaced left acetabular fracture. 4. Left triquetral avulsion fracture. ADDENDUM - This addendum is being placed on the report for a time dependent finding on a patient who is admitted to the hospital (2B). Upon further review with the attending physician, there is a likely triquetral avulsion fracture. Recommend follow up of the Incidental triquetral fracture Additional Imaging less than 1 month with orthopedic hand service. Dictated by: Primo Moreno M.D. The radiology attending physician has personally reviewed this study, and had reviewed and/or edited this written report and agrees with it. Electronically signed by: Obey Nichole M.D. XR Foot Left 3 or More Views Result Date: 12/10/2020 Right hand, right wrist: Alignment is normal. No acute fracture. Left shoulder: Alignment is normal. Glenohumeral and acromioclavicular joint spaces are normal. No acute fracture. Left ankle, left foot, left calcaneus: Chronic, healed distal left fibular shaft fracture. Comminuted left calcaneal fracture with central depression. Comminuted, displaced, intra-articular left fifth metatarsal base fracture. Dictated by: Primo Moreno M.D. The radiology attending physician has personally reviewed this study, and had reviewed and/or edited this written report and agrees with it. Electronically signed by: Obey Nichole M.D. XR Foot Right 3 or More Views Result Date: 12/10/2020 1. Centrally depressed comminuted right calcaneus fracture. 2. Comminuted and displaced distal right tibial fracture involving the medial and posterior malleoli. Mildly displaced right fibular neck fracture. 3. Mildly displaced left acetabular fracture. 4. Left triquetral avulsion fracture. ADDENDUM - This addendum is being placed on the report for a time dependent finding on a patient who is admitted to the hospital (2B). Upon further review with the attending physician, there is a likely triquetral avulsion fracture. Recommend follow up of the Incidental triquetral fracture Additional Imaging less than 1 month with orthopedic hand service. Dictated by: Primo Moreno M.D. The radiology attending physician has personally reviewed this study, and had reviewed and/or edited this written report and agrees with it. Electronically signed by: Obey Nichole M.D. XR Calcaneus Left 2 or More Views Result Date: 12/10/2020 Right hand, right wrist: Alignment is normal. No acute fracture. Left shoulder: Alignment is normal. Glenohumeral and acromioclavicular joint spaces are normal. No acute fracture. Left ankle, left foot, left calcaneus: Chronic, healed distal left fibular shaft fracture. Comminuted left calcaneal fracture with central depression. Comminuted, displaced, intra-articular left fifth metatarsal base fracture. Dictated by: Primo Moreno M.D. The radiology attending physician has personally reviewed this study, and had reviewed and/or edited this written report and agrees with it. Electronically signed by: Obey Nichole M.D. XR Calcaneus Right 2 or More Views Result Date: 12/10/2020 1. Centrally depressed comminuted right calcaneus fracture. 2. Comminuted and displaced distal right tibial fracture involving the medial and posterior malleoli. Mildly displaced right fibular neck fracture. 3. Mildly displaced left acetabular fracture. 4. Left triquetral avulsion fracture. ADDENDUM - This addendum is being placed on the report for a time dependent finding on a patient who is admitted to the hospital (2B). Upon further review with the attending physician, there is a likely triquetral avulsion fracture. Recommend follow up of the Incidental triquetral fracture Additional Imaging less than 1 month with orthopedic hand service. Dictated by: Primo Moreno M.D. The radiology attending physician has personally reviewed this study, and had reviewed and/or edited this written report and agrees with it. Electronically signed by: Obey Nichole M.D. XR Chest 1 Vw Portable Result Date: 12/09/2020 1. Low lung volumes and patchy atelectasis, otherwise, clear lungs. 2. No evidence of acute fracture in pelvis single view. Electronically signed by: Ivan Mckinney M.D. CT Foot Left WO Contrast Result Date: 12/10/2020 1. Markedly comminuted mildly displaced intra-articular left calcaneus fracture. 2. Comminuted mildly displaced intra-articular fracture of the base of the left 5th metatarsal. Electronically signed by: Abdiel Umanzor M.D. XR Hip Left 4 or More Views Result Date: 12/10/2020 1. Centrally depressed comminuted right calcaneus fracture. 2. Comminuted and displaced distal right tibial fracture involving the medial and posterior malleoli. Mildly displaced right fibular neck fracture. 3. Mildly displaced left acetabular fracture. 4. Left triquetral avulsion fracture. ADDENDUM - This addendum is being placed on the report for a time dependent finding on a patient who is admitted to the hospital (2B). Upon further review with the attending physician, there is a likely triquetral avulsion fracture. Recommend follow up of the Incidental triquetral fracture Additional Imaging less than 1 month with orthopedic hand service. Dictated by: Primo Moreno M.D. The radiology attending physician has personally reviewed this study, and had reviewed and/or edited this written report and agrees with it. Electronically signed by: Obey Nichole M.D. XR Femur Left 2 or More Views Result Date: 12/10/2020 1. Centrally depressed comminuted right calcaneus fracture. 2. Comminuted and displaced distal right tibial fracture involving the medial and posterior malleoli. Mildly displaced right fibular neck fracture. 3. Mildly displaced left acetabular fracture. 4. Left triquetral avulsion fracture. ADDENDUM - This addendum is being placed on the report for a time dependent finding on a patient who is admitted to the hospital (2B). Upon further review with the attending physician, there is a likely triquetral avulsion fracture. Recommend follow up of the Incidental triquetral fracture Additional Imaging less than 1 month with orthopedic hand service. Dictated by: Primo Moreno M.D. The radiology attending physician has personally reviewed this study, and had reviewed and/or edited this written report and agrees with it. Electronically signed by: Obey Nichole M.D. CT Head Cervical Face WO Contrast Result Date: 12/09/2020 1. Complex facial and left orbital fractures with involvement of the left zygomatic arch, right pterygoid plate, bilateral maxillary sinus, as detailed above. 2. Radiopaque foreign body in the left nasal soft tissue. 3. Left zygomatic complex fracture extending to the left temporomandibular joint. L imited evaluation of the mandible due to motion artifact. 4. No acute intracranial abnormality. 5. No evidence of acute fracture in the cervical, thoracic, or lumbar spine. Dictated by: Nikolas Logan M.D. The radiology attending physician has personally reviewed this study, and had reviewed and/or edited this written report and agrees with it. Electronically signed by: Desmond Landers M.D, PHD CT Chest Abdomen Pelvis W Contrast Result Date: 12/10/2020 1. No evidence of traumatic visceral injury in the chest, abdomen or pelvis. 2. Mildly displaced T-shaped left acetabular fracture. 3. Right anterior fourth rib fracture. ADDENDUM - This addendum is being placed on the report for a time dependent finding on a patient who is admitted to the hospital(2B). Upon additional review of the imaging and the attending radiologist there is a following additional findings: There is a mildly displaced left sacral fracture with extension into the S3-S4 neuroforamen. There is an associated presacral hematoma. Findings in the lungs could represent aspiration or less likely mild contusions. These findings were communicated to Dr. Odonnell by Dr. Moreno at 0810 hours on 12/10/2020. Dictated by: Primo Moreno M.D. The radiology attending physician has personally reviewed this study, and had reviewed and/or edited this written report and agreeswith it. Electronically signed by: Obey Nichole M.D. XR Pelvis 1 or 2 Views Result Date: 12/09/2020 1. Low lung volumes and patchy atelectasis, otherwise, clear lungs. 2. No evidence of acute fracture in pelvis single view. Electronically signed by: Ivan Mckinney M.D. CT Recon Thoracic and Lumbar Spine W Contrast (C) Result Date: 12/09/2020 1. Complex facial and left orbital fractures with involvement of the left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 Comminuted, displaced, intra-articular left fifth metatarsal base fracture. Dictated by: Primo Moreno M.D. The radiology attending physician has personally reviewed this study, and had reviewed and/or edited this written report and agrees with it. Electronically signed by: Obey Nichloe M.D. XR Radius Ulna Left 2 Views Result Date: 12/10/2020 1. Centrally depressed comminuted right calcaneus fracture. 2. Comminuted and displaced distal right tibial fracture involving the medial and posterior malleoli. Mildly displaced right fibular neck fracture. 3. Mildly displaced left acetabular fracture. 4. Left triquetral avulsion fracture. ADDENDUM - This addendum is being placed on the report for a time dependent finding on a patient who is admitted to the hospital (2B). Upon further review with the attending physician, there is a likely triquetral avulsion fracture. Recommend follow up of the Incidental triquetral fracture Additional Imaging less than 1 month with orthopedic hand service. Dictated by: Primo Moreno M.D. The radiology attending physician has personally reviewed this study, and had reviewed and/or edited this written report and agrees with it. Electronically signed by: Obey Nichole M.D. XR Wrist Left 3 or More Views Result Date: 12/10/2020 1. Centrally depressed comminuted right calcaneus fracture. 2. Comminuted and displaced distal right tibial fracture involving the medial and posterior malleoli. Mildly displaced right fibular neck fracture. 3. Mildly displaced left acetabular fracture. 4. Left triquetral avulsion fracture. ADDENDUM - This addendum is being placed on the report for a time dependent finding on a patient who is admitted to the hospital (2B). Upon further review with the attending physician, there is a likely triquetral avulsion fracture. Recommend follow up of the Incidental triquetral fracture Additional Imaging less than 1 month with orthopedic hand service. Dictated by: Primo Moreno M.D. The radiology attending physician has personally reviewed this study, and had reviewed and/or edited this written report and agrees with it. Electronically signed by: Obey Nichole M.D. XR Wrist Right 3 or More Views Result Date: 12/10/2020 Right hand, right wrist: Alignment is normal. No acute fracture. Left shoulder: Alignment is normal. Glenohumeral and acromioclavicular joint spaces are normal. No acute fracture. Left ankle, left foot, left calcaneus: Chronic, healed distal left fibular shaft fracture. Comminuted left calcaneal fracture with central depression. Comminuted, displaced, intra-articular left fifth metatarsal base fracture. Dictated by: Primo Moreno M.D. The radiology attending physician has personally reviewed this study, and had reviewed and/or edited this written report and agrees with it. Electronically signed by: Obey Nichole M.D. XR Hand Left 3 or More Views Result Date: 12/10/2020 1. Centrally depressed comminuted right calcaneus fracture. 2. Comminuted and displaced distal right tibial fracture involving the medial and posterior malleoli. Mildly displaced right fibular neck fracture. 3. Mildly displaced left acetabular fracture. 4. Left triquetral avulsion fracture. ADDENDUM - This addendum is being placed on the report for a time dependent finding on a patient who is admitted to the hospital (2B). Upon further review with the attending physician, there is a likely triquetral avulsion fracture. Recommend follow up of the Incidental triquetral fracture Additional Imaging less than 1 month with orthopedic hand service. Dictated by: Primo Moreno M.D. The radiology attending physician has personally reviewed this study, and had reviewed and/or edited this written report and agrees with it. Electronically signed by: Obey Nichole M.D. XR Hand Right 3 or More Views Result Date: 12/10/2020 Right hand, right wrist: Alignment is normal. No acute fracture. Left shoulder: Alignment is normal. Glenohumeral and acromioclavicular joint spaces are normal. No acute fracture. Left ankle, left foot, left calcaneus: Chronic, healed distal left fibular shaft fracture. Comminuted left calcaneal fracture with central depression. Comminuted, displaced, intra-articular left fifth metatarsal base fracture. Dictated by: Primo Moreno M.D. The radiology attending physician has personally reviewed this study, and had reviewed and/or edited this written report and agrees with it. Electronically signed by: Obey Nichole M.D. XR Knee Left 1 or 2 Views Result Date: 12/10/2020 1. Centrally depressed comminuted right calcaneus fracture. 2. Comminuted and displaced distal right tibial fracture involving the medial and posterior malleoli. Mildly displaced right fibular neck fracture. 3. Mildly displaced left acetabular fracture. 4. Left triquetral avulsion fracture. ADDENDUM - This addendum is being placed on the report for a time dependent finding on a patient who is admitted to the hospital (2B). Upon further review with the attending physician, there is a likely triquetral avulsion fracture. Recommend follow up of the Incidental triquetral fracture Additional Imaging less than 1 month with orthopedic hand service. Dictated by: Primo Moreno M.D. The radiology attending physician has personally reviewed this study, and had reviewed and/or edited this written report and agrees with it. Electronically signed by: Obey Nichole M.D. XR Knee Right 1 or 2 Views Result Date: 12/10/2020 1. Centrally depressed comminuted right calcaneus fracture. 2. Comminuted and displaced distal right tibial fracture involving the medial and posterior malleoli. Mildly displaced right fibular neck fracture. 3. Mildly displaced left acetabular fracture. 4. Left triquetral avulsion fracture. ADDENDUM - This addendum is being placed on the report for a time dependent finding on a patient who is admitted to the hospital (2B). Upon further review with the attending physician, there is a likely triquetral avulsion fracture. Recommend follow up of the Incidental triquetral fracture Additional Imaging less than 1 month with orthopedic hand service. Dictated by: Primo Moreno M.D. The radiology attending physician has personally reviewed this study, and had reviewed and/or edited this written report and agrees with it. Electronically signed by: Obey Nichole M.D. XR Tibia Fibula Right 2 Views Result Date: 12/10/2020 1. Centrally depressed comminuted right calcaneus fracture. 2. Comminuted and displaced distal right tibial fracture involving the medial and posterior malleoli. Mildly displaced right fibular neck fracture. 3. Mildly displaced left acetabular fracture. 4. Left triquetral avulsion fracture. ADDENDUM - This addendum is being placed on the report for a time dependent finding on a patient who is admitted to the hospital (2B). Upon further review with the attending physician, there is a likely triquetral avulsion fracture. Recommend follow up of the Incidental triquetral fracture Additional Imaging less than 1 month with orthopedic hand service. Dictated by: Primo Moreno M.D. The radiology attending physician has personally reviewed this study, and had reviewed and/or edited this written report and agrees with it. Electronically signed by: Obey Nichole M.D. XR Ankle Left 3 or More Views Result Date: 12/10/2020 Right hand, right wrist: Alignment is normal. No acute fracture. Left shoulder: Alignment is normal. Glenohumeral and acromioclavicular joint spaces are normal. No acute fracture. Left ankle, left foot, left calcaneus: Chronic, healed distal left fibular shaft fracture. Comminuted left calcaneal fracture with central depression. Comminuted, displaced, intra-articular left fifth metatarsal base fracture. Dictated by: Primo Moreno M.D. The radiology attending physician has personally reviewed this study, and had reviewed and/or edited this written report and agrees with it. Electronically signed by: Obey Nichole M.D. XR Ankle Right 3 or More Views Result Date: 12/10/2020 1. Centrally depressed comminuted right calcaneus fracture. 2. Comminuted and displaced distal right tibial fracture involving the medial and posterior malleoli. Mildly displaced right fibular neck fracture. 3. Mildly displaced left acetabular fracture. 4. Left triquetral avulsion fracture. ADDENDUM - This addendum is being placed on the report for a time dependent finding on a patient who is admitted to the hospital (2B). Upon further review with the attending physician, there is a likely triquetral avulsion fracture. Recommend follow up of the Incidental triquetral fracture Additional Imaging less than 1 month with orthopedic hand service. Dictated by: Primo Moreno M.D. The radiology attending physician has personally reviewed this study, and had reviewed and/or edited this written report and agrees with it. Electronically signed by: Obey Nichole M.D. XR Foot Left 3 or More Views Result Date: 12/10/2020 Right hand, right wrist: Alignment is normal. No acute fracture. Left shoulder: Alignment is normal. Glenohumeral and acromioclavicular joint spaces are normal. No acute fracture. Left ankle, left foot, left calcaneus: Chronic, healed distal left fibular shaft fracture. Comminuted left calcaneal fracture with central depression. Comminuted, displaced, intra-articular left fifth metatarsal base fracture. Dictated by: Primo Moreno M.D. The radiology attending physician has personally reviewed this study, and had reviewed and/or edited this written report and agrees with it. Electronically signed by: Obey Nichole M.D. XR Foot Right 3 or More Views Result Date: 12/10/2020 1. Centrally depressed comminuted right calcaneus fracture. 2. Comminuted and displaced distal right tibial fracture involving the medial and posterior malleoli. Mildly displaced right fibular neck fracture. 3. Mildly displaced left acetabular fracture. 4. Left triquetral avulsion fracture. ADDENDUM - This addendum is being placed on the report for a time dependent finding on a patient who is admitted to the hospital (2B). Upon further review with the attending physician, there is a likely triquetral avulsion fracture. Recommend follow up of the Incidental triquetral fracture Additional Imaging less than 1 month with orthopedic hand service. Dictated by: Primo Moreno M.D. The radiology attending physician has personally reviewed this study, and had reviewed and/or edited this written report and agrees with it. Electronically signed by: Obey Nichole M.D. XR Calcaneus Left 2 or More Views Result Date: 12/10/2020 Right hand, right wrist: Alignment is normal. No acute fracture. Left shoulder: Alignment is normal. Glenohumeral and acromioclavicular joint spaces are normal. No acute fracture. Left ankle, left foot, left calcaneus: Chronic, healed distal left fibular shaft fracture. Comminuted left calcaneal fracture with central depression. Comminuted, displaced, intra-articular left fifth metatarsal base fracture. Dictated by: Primo Moreno M.D. The radiology attending physician has personally reviewed this study, and had reviewed and/or edited this written report and agrees with it. Electronically signed by: Obey Nichole M.D. XR Calcaneus Right 2 or More Views Result Date: 12/10/2020 1. Centrally depressed comminuted right calcaneus fracture. 2. Comminuted and displaced distal right tibial fracture involving the medial and posterior malleoli. Mildly displaced right fibular neck fracture. 3. Mildly displaced left acetabular fracture. 4. Left triquetral avulsion fracture. ADDENDUM - This addendum is being placed on the report for a time dependent finding on a patient who is admitted to the hospital (2B). Upon further review with the attending physician, there is a likely triquetral avulsion fracture. Recommend follow up of the Incidental triquetral fracture Additional Imaging less than 1 month with orthopedic hand service. Dictated by: Primo Moreno M.D. The radiology attending physician has personally reviewed this study, and had reviewed and/or edited this written report and agrees with it. Electronically signed by: Obey Nichole M.D. XR Chest 1 Vw Portable Result Date: 12/09/2020 1. Low lung volumes and patchy atelectasis, otherwise, clear lungs. 2. No evidence of acute fracture in pelvis single view. Electronically signed by: Ivan Mckinney M.D. CT Foot Left WO Contrast Result Date: 12/10/2020 1. Markedly comminuted mildly displaced intra-articular left calcaneus fracture. 2. Comminuted mildly displaced intra-articular fracture of the base of the left 5th metatarsal. Electronically signed by: Abdiel Umanzor M.D. XR Hip Left 4 or More Views Result Date: 12/10/2020 1. Centrally depressed comminuted right calcaneus fracture. 2. Comminuted and displaced distal right tibial fracture involving the medial and posterior malleoli. Mildly displaced right fibular neck fracture. 3. Mildly displaced left acetabular fracture. 4. Left triquetral avulsion fracture. ADDENDUM - This addendum is being placed on the report for a time dependent finding on a patient who is admitted to the hospital (2B). Upon further review with the attending physician, there is a likely triquetral avulsion fracture. Recommend follow up of the Incidental triquetral fracture Additional Imaging less than 1 month with orthopedic hand service. Dictated by: Primo Moreno M.D. The radiology attending physician has personally reviewed this study, and had reviewed and/or edited this written report and agrees with it. Electronically signed by: Obey Nichole M.D. XR Femur Left 2 or More Views Result Date: 12/10/2020 1. Centrally depressed comminuted right calcaneus fracture. 2. Comminuted and displaced distal right tibial fracture involving the medial and posterior malleoli. Mildly displaced right fibular neck fracture. 3. Mildly displaced left acetabular fracture. 4. Left triquetral avulsion fracture. ADDENDUM - This addendum is being placed on the report for a time dependent finding on a patient who is admitted to the hospital (2B). Upon further review with the attending physician, there is a likely triquetral avulsion fracture. Recommend follow up of the Incidental triquetral fracture Additional Imaging less than 1 month with orthopedic hand service. Dictated by: Primo Moreno M.D. The radiology attending physician has personally reviewed this study, and had reviewed and/or edited this written report and agrees with it. Electronically signed by: Obey Nichole M.D. CT Head Cervical Face WO Contrast Result Date: 12/09/2020 1. Complex facial and left orbital fractures with involvement of the left zygomatic arch, right pterygoid plate, bilateral maxillary sinus, as detailed above. 2. Radiopaque foreign body in the left nasal soft tissue. 3. Left zygomatic complex fracture extending to the left temporomandibular joint. L imited evaluation of the mandible due to motion artifact. 4. No acute intracranial abnormality. 5. No evidence of acute fracture in the cervical, thoracic, or lumbar spine. Dictated by: Nikolas Logan M.D. The radiology attending physician has personally reviewed this study, and had reviewed and/or edited this written report and agrees with it. Electronically signed by: Desmond Landers M.D, PHD CT Chest Abdomen Pelvis W Contrast Result Date: 12/10/2020 1. No evidence of traumatic visceral injury in the chest, abdomen or pelvis. 2. Mildly displaced T-shaped left acetabular fracture. 3. Right anterior fourth rib fracture. ADDENDUM - This addendum is being placed on the report for a time dependent finding on a patient who is admitted to the hospital(2B). Upon additional review of the imaging and the attending radiologist there is a following additional findings: There is a mildly displaced left sacral fracture with extension into the S3-S4 neuroforamen. There is an associated presacral hematoma. Findings in the lungs could represent aspiration or less likely mild contusions. These findings were communicated to Dr. Odonnell by Dr. Moreno at 0810 hours on 12/10/2020. Dictated by: Primo Moreno M.D. The radiology attending physician has personally reviewed this study, and had reviewed and/or edited this written report and agreeswith it. Electronically signed by: Obey Nichole M.D. XR Pelvis 1 or 2 Views Result Date: 12/09/2020 1. Low lung volumes and patchy atelectasis, otherwise, clear lungs. 2. No evidence of acute fracture in pelvis single view. Electronically signed by: Ivan Mckinney M.D. CT Recon Thoracic and Lumbar Spine W Contrast (C) Result Date: 12/09/2020 1. Complex facial and left orbital fractures with involvement of the left zygomatic arch, right pterygoid plate, bilateral maxillary sinus, as detailed above. 2. Radiopaque foreign body in the left nasal soft tissue. 3. Left zygomatic complex fracture extending to the left temporomandibular joint. L imited evaluation of the mandible due to motion artifact. 4. No acute intracranial abnormality. 5. No evidence of acute fracture in the cervical, thoracic, or lumbar spine. Dictated by: Nikolas Logan M.D. The radiology attending physician has personally reviewed this study, and had reviewed and/or edited this written report and agrees with it. Electronically signed by: Desmond Landers M.D, PHD Assessment and Plan: #L calcaneus fx - ortho consult - 12/12 s/p OR ORIF - NWB LLE - Has bulky drsg, and to transition to CAM boot - PT/OT #L 5th metatarsal fx - ortho consult - NWB LLE - CAM boot - PT/OT #R open calcaneus fx #R distal tib/fib fx - ortho consult - splinted in ED by ortho - 12/10 s/p OR for ex fix and washout of open fx - ancef/gentamicin x5d course, - received Tdap in ED - 12/19 (OR): s/p internalization of ex-fix - NWB RLE x6 weeks - S/p ORIF right calcaneous and wound vac placed (12/21) #L acetabular fx - ortho consult - non- op - PT/OT - pain control #L sacral fx including S3-4 neuroforamen with presacral hematoma - ortho consult - listed as R sacral fx in ortho consult note; confirmed to be L with ortho - plan for nonoperative management - NWB LLE - PT/OT #L triquetral fx (wrist) #L open radio-occult ulna fx #left forearm laceration - Ortho consult - splinted in ED by ortho - 12/10 OR for I&D, and laceration repair - NWB LUE - PT/OT #facial and L orbital fx: L zygomatic, R pterygoid plate, b/l max sinus, L zygomatic fx with L TMJ involvement - ENT consulted - anticipate delayed operative repair - facial lacs repaired by ENT in ED; bacitracin TID x3d, vaseline TID x11d - pureed diet only, nasal precautions - 12/[address] max/face -Multiple facial bone fractures, extension of fracture into the superior aspect of the left temporal mandibular joint laterally. No significant widening of the temporomandibular joints or mandibular fracture seen. - Missed ENT appointment on 12/15 - need to leave patient with clinic number at discharge [phone] #L eye vitreous hemorrhage #L eye possible traumatic iritis - ophthalmology - uncooperative with exam on night of admission, - head of bed elevation - 12/11 repeat exam - clearing vit heme w/o globe violation or RD, likely traumatic iris tear (not appreciated on portable) vs traumatic mydriasis - 12/18: Resolving vitreous hemorrhage. E-mycin to lacerations #R 4th rib fx - pain control - pulmonary hygiene - scheduled IS - wean O2 as tolerated #left posterior thigh laceration - 12/10 repaired by ortho in the OR #acute post-traumatic and post-operative pain - tylenol q 6 hrs MARILUZ - lidocaine patches - flexeril 10mg TID - gabapentin 300mg BID - prn oxycodone - dilaudid PRN #polysubstance use - admission UDS positive for amphetamines, cannabis, cocaine, fentanyl; admission ethanol 15 - chemical dependency ordered -> not responsive to motivational interviewing techniques but received info on resources DVT ppx: trauma lovenox 30 BID Dispo: Home with , post-op recovery Caty Zuñiga NP Cosigned by Nain Morrow MD at 12/22/2020 6:50 PM CDT * Juan Gaona MD - 12/22/2020 6:00 AM CDT Orthopedic Surgery Trauma Service Daily Progress Note Subjective Marco A Deluna, [id number] Attending: Corine Hodgson MD 50 y.o. male 1 Day Post-Op s/p Procedure(s) (LRB): OPEN REDUCTION INTERNAL FIXATION - CALCANEOUS FRACTURE (Right) Interval History: No acute events overnight per chart review. The patient's vitals have remained relatively stable, and they have been afebrile. The operative extremity(s) is elevated. Overall, theirpain is well controlled Denies chest pain, shortness of breath, significant dizziness, vision changes. Objective Vitals: 24hr Min/Max: Temp Min: 37.1 ??C (98.8 ??F) Max: 37.2 ??C (99 ??F) Pulse Min: 99 Max: 107 BP Min: 101/65 Max: 107/65 Resp Min: 18 Max: 18 SpO2 Min: 95 % Max: 96 % I/O last 2 completed shifts: In: 300 [P.O.:300] Out: 600 [Urine:600] No intake/output data recorded. Physical Exam: Gen: NAD A&O: x4 Surgical/Injured Extremity: BLE Dressing/wound: Dressing C/D/I Splint/Cast/External Fixator: Splint C/D/I, tolerating well Sensation: SILT SP/DP/Saph/Belia/T; denies numbness/tingling, no evidence of nerve palsy Motor: Wiggles all toes Perfusion: Toes WWP Swelling: Absent and soft/compressible compartments Wound Vac(s): Not applicable Surgical Drain/Vac(s): Not applicable Bergman: Not applicable Tertiary Exam Findings: Negative. There are no other apparent painful joints or extremities on exam Flap Assessment: Not applicable Lab/Diagnostic Review: Recent Labs Lab Units 12/21/20 2212 SODIUM mmol/L 132* POTASSIUM PLASMA mmol/L 4.7 CHLORIDE mmol/L 98 CO2 mmol/L 29 ANIONGAP mmol/L 5 GLUCOSE mg/dL 109 BUN SERUM mg/dL 16 CREATININE mg/dL 0.79* CALCIUM mg/dL 8.3* WBC K/cumm 12.5* HEMOGLOBIN g/dL 8.1* HEMATOCRIT % 24.8* PLATELETS K/cumm 709* NEUTROS PCT % 72.9 LYMPHS PCT % 15.4 MONOS PCT % 8.3 EOS PCT % 1.1 No results found for: MICROBIOLOGY Radiology results were reviewed. Results for orders placed during the hospital encounter of 12/09/20 XR Calcaneus Right 2 or More Views Narrative EXAM: 1. XR CALCANEUS RIGHT 2 OR MORE VIEWS HISTORY: Right calcaneus fracture COMPARISON: Radiographs 12/19/2020, 12/09/[address] 12/10/2020 FINDINGS: 2 radiographs of the right calcaneus are submitted for interpretation. Interval reduced, internally fixated and grafted comminuted, depressed and intra-articular calcaneal fracture with fixation plate and screws. Instrumentation is intact. Partly imaged plate and screw fixation of the distal tibia. Tunnel tract within the cuboid. Soft tissue swelling surrounding the ankle. Impression 1. Interval reduced, internally fixated and grafted comminuted, depressed and intra-articular right calcaneal fracture. Electronically signed by: Rivas Parisi M.D. Results for orders placed during the hospital encounter of 12/09/20 CT Maxiliofacial WO Contrast W 3D Recon Narrative EXAMINATION: Computed tomography (CT) of the maxillofacial bones, orbits, and paranasal sinuses without contrast HISTORY: Facial bone fractures, repeat evaluation due to motion artifact on prior study, evaluate for temporomandibular joint extension TECHNIQUE: CT of the maxillofacial bones, orbits, and paranasal sinuses was performed without intravenous contrast according to standard protocol. COMPARISON: CT facial bones from 11/08/2020 FINDINGS: There is a comminuted fracture of the left lateral orbital wall extending into the left greater sphenoid wing, comminuted and displaced fracture of the left side zygomatic arch extending into the left temporomandibular joint, fractures of the anterior and posterior lateral wall of the left maxillary sinus, fracture of the posterior lateral wall of the right maxillary sinus, and fractures of the right pterygoid plates. Fracture extends to the left inferior orbital wall. Nasal septum is deviated to the left. No mandibular fracture is identified. Mastoid air cells demonstrate small effusion on the right. Multiple dental caries. There are several soft tissue swelling along the left greater than on the right. No intraconal extension is identified. Soft tissue swelling also overlies the left base. Blood products noted in the maxillary sinuses. Impression Multiple facial bone fractures, unchanged as described on prior facial bone CT examination. There is extension of fracture into the superior aspect of the left temporal mandibular joint laterally. No significant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 of the chest, 4 cm laceration to the back of the left thigh, 8 cm laceration to the left forearm with exposed muscle and tendons, and an obvious deformity at of the right ankle with an open fracture. Imaging revealed L calcaneus fx, L 5th metatarsal, R open calcaneus fx, R distal tib/fib fx, L acetabular fx, L triquetral fx (wrist) # facial and L orbital fx: L zygomatic, R pterygoid plate, b/l max sinus, L zygomatic fx with L TMJ involvement, R 4th rib fx, and L sacral fx including S3-4 neuroforamen with presacral hematoma. Orthopedic Surgery, ENT, and Opthomalogy consulted. Interval History: OR today with Ortho. Pending updated plan. 12/18: Ophtho evaluated today. Recommending e-mycin to lacs. Resolving vitreous hemorrhage. Plan forOR tomorrow for ex-fix reversal. 12/17: Afebrile, tachy 90-110s, Na 135 - improved. Patient states stomach is still distended and needs a BM (minimal prior) - possibly interested in an enema today. 12/16: pain controlled, Tm 98.9, Na 130, fluid restriction placed, gatorade started, +BM. 12/15: Afebrile, tachycardic 90-100s, Na 132 (134) and Cr 0.72. Past void trial. No BM noted, does not want enema yet. Planning for OR with Ortho for R calcaneous/pilon 12/19 12/14: NAEON. Bergman removed. Pending void trial. 12/13: NAEON. OR yesterday with Ortho for calcaneous. Plan to return to OR for ex-fix takedown on 12/19. 12/12: No acute distress or events overnight. OR today with Ortho for ORIF L Calcaneus. Chemical dependency consult. WBC 12.7, afebrile. Hgb 9.3. Na 133. PT/OT. 12/11: Patient with no acute distress or events overnight. Pat s/p OR I&D of ulna, I&D left ankle, R LLE ex-fix placement, R index finger laceration repair, Left thigh laceration. Patient moreaway and C- collar to be removed. Opthalmology exam to be repeated. WBC 13, afebrile. Hgb 10.2 Na 132, FWR. PT/OT. Awaiting Ortho OR plan. 12/10: arrived to floor from ED and proceeded to OR with ortho: LUE I&D, RLE I&D and ex fix,L thigh lac repair - one BP 82/66 ON, quickly corrected to 159/89, likely spurious - admission UDS positive for amphetamines, cannabis, cocaine, fentanyl; ethanol 15 - seen by ENT in ED; plan for delayed operative management, pureed diet, nasal precautions Pain:controlled Nausea: No Flatus: No Bowel Movement: No Medications: Current Facility-Administered Medications: ??? acetaminophen (TYLENOL) tablet 1,000 mg, 1,000 mg, oral, Q6H MARILUZ, Kaylan Vasquez MD, 1,000 mg at 12/19/20 0556 ??? cyclobenzaprine (FLEXERIL) tablet 10 mg, 10 mg, oral, TID, Betsy Schultz MD, 10 mg at 12/19/2044 ??? [Held by Provider] enoxaparin (LOVENOX) syringe 30 mg, 30 mg, subcutaneous, Q12H [facility] Tiffany Kay, MD, 30 mg at 12/18/200 ??? erythromycin (ILOTYCIN) 5 mg/gram (0.5 %) ophthalmic ointment, , each eye, BID, Ofelia Garcia MD, 1 application at 12/19/20843 ??? gabapentin (NEURONTIN) capsule 300 mg, 300 mg, oral, BID, Betsy Schultz MD, 300 mg at 12/19/20843 ??? HYDROmorphone (DILAUDID) injection 0.2 mg, 0.2 mg, intravenous, Q4H PRN, Kaylan Vasquez MD, 0.2 mg at 12/17/20 1126 ??? lidocaine (LIDODERM) 5 % patch 1 patch, 1 patch, transdermal, Daily, Kaylan Vasquez MD, Last Rate: 0 mL/hr at 12/18/202130, 1 patch at 12/19/20 0843 ??? oxyCODONE (ROXICODONE) tablet 5 mg, 5 mg, oral, Q4H PRN, Kaylan Vasquez MD, 5 mg at 12/19/20843 ??? polyethylene glycol (MIRALAX) packet 17 g, 17 g, oral, Daily, Caty Zuñiga NP, 17 g at 12/17/20 0914 ??? polyvinyl alcohol-povidone (REFRESH CLASSIC) 1.4-0.6 % ophthalmic solution 1 drop, 1 drop, eacheye, QID PRN, Ofelia Garcia MD ??? senna-docusate (PERICOLACE) 8.6-50 mg per tablet 2 tablet, 2 tablet, oral, BID, Caty Zuñiga, SAW FILER, 2 tablet at 12/19/20 0843 ??? sodium chloride 0.9% flush 0.5-20 mL, 0.5-20 mL, intra-catheter, Q8H MARILUZPedro Rami Mahmoud, MD, 10 mL at 12/19/20 0556 ??? sodium chloride 0.9% flush 0.5-20 mL, 0.5-20 mL, intra-catheter, PRN, Kaylan Vasquez MD ??? white petrolatum 42 % ointment, , topical, TID, Betsy Schultz MD, Given at 12/19/20 0845 Diet: Dietary Orders (From admission, onward) Start Ordered 12/19/20 0001 NPO Diet Sips with meds, Ice chips Diet effective midnight Question Answer Comment NPO except: Sips with meds NPO except: Ice chips 12/18/20 1718 12/15/20 1111 Oral Nutrition Supplements Select Supplement: Ensure Plus - Geovani All Meals Question: Select Supplement: Answer: Ensure Plus - Geovani 12/15/20 1110 Activity: NWB RLE, LLE, LUE Is&Os: I/O last 2 completed shifts: In: - Out: 1225 [Urine:1225] No intake/output data recorded. Physical Exam: 24hr Min/Max: Temp Min: 36.6 ??C (97.9 ??F) Max: 37.1 ??C (98.8 ??F) Pulse Min: 83 Max: 109 BP Min: 95/73 Max: 121/66 Resp Min: 18 Max: 18 SpO2 Min: 96 % Max: 99 % Vitals: 12/19/20 0823 BP: 101/65 Pulse: 83 Resp: 18 Temp: 37.1 ??C (98.8 ??F) SpO2: 98% Constitutional: lying in bed in no acute distress Head: normocephalic Neurologic: alert, oriented, conversational, appropriate. Moving all four extremities. 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 Eyes: conjunctivae pink, sclerae anicteric. PERRLA Neck: supple, trachea midline. Chest: symmetric chest wall excursion without visible deformity. Respiratory: no cyanosis. Breathing room air with no use of accessory musculature. IS at bedside. Cardiovascular: Regular rate and rhythm. Normal JVD supine. Gastrointestinal: soft, distended, nontender. No ecchymosis. No rebound/guarding. Musculoskeletal: all limbs soft and compressible. Warm and well perfused throughout. No edema. Ex-fix in place to RLE, LUE splint intact, bilateral furry boots. Wiggles toes Skin: grossly without lesion, facial abrasions Labs/Imaging: Recent Results (from the past 24 hour(s)) Basic metabolic panel Collection Time: 12/18/20 11:12 PM Result Value Ref Range Sodium 134 (L) 135 - 145 mmol/L Potassium, pl 4.3 3.3 - 4.9 mmol/L Chloride 102 97 - 110 mmol/L CO2 27 22 - 32 mmol/L Anion gap 5 2 - 15 mmol/L BUN 18 8 - 25 mg/dL Creatinine 0.88 0.80 - 1.30 mg/dL Glucose 132 70 - 199 mg/dL Calcium 8.7 8.5 - 10.3 mg/dL Magnesium Collection Time: 12/18/20 11:12 PM Result Value Ref Range Magnesium 2.1 1.4 - 2.5 mg/dL Phosphorus Collection Time: 12/18/20 11:12 PM Result Value Ref Range Phosphorus, pl 4.2 2.3 - 4.5 mg/dL CBC with auto differential Collection Time: 12/18/20 11:12 PM Result Value Ref Range WBC 12.5 (H) 3.8 - 9.9 K/cumm Hgb 9.3 (L) 13.0 - 17.5 g/dL Hct 28.3 (L) 38.9 - 50.3 % Plt 629 (H) 150 - 400 K/cumm MPV 9.1 9.1 - 12.3 fL RBC 2.91 (L) 4.30 - 5.80 M/cumm MCV 97.3 (H) 81.3 - 96.4 fL MCH 32.0 27.1 - 33.3 pg MCHC 32.9 32.3 - 35.7 g/dL RDW CV 14.3 11.1 - 14.9 % RDW SD 49.7 (H) 35.7 - 48.1 fL NRBC abs 0.00 0.00 - 0.01 K/cumm Differential, auto Collection Time: 12/18/20 11:12 PM Result Value Ref Range Neutrophil abs 8.5 (H) 1.7 - 6.5 K/cumm Imm gran abs 0.3 (H) 0.0 - 0.1 K/cumm Lymphocyte abs 2.3 0.8 - 3.3 K/cumm Monocyte abs 1.1 (H) 0.2 - 0.8 K/cumm Eosinophil abs 0.2 0.0 - 0.5 K/cumm Basophil abs 0.1 0.0 - 0.1 K/cumm Neutrophil pct 68.4 % Imm gran pct 2.7 % Lymphocyte pct 18.3 % Monocyte pct 8.8 % Eosinophil pct 1.2 % Basophil pct 0.6 % XR Shoulder Left 2 or More Views Result Date: 12/10/2020 Right hand, right wrist: Alignment is normal. No acute fracture. Left shoulder: Alignment is normal. Glenohumeral and acromioclavicular joint spaces are normal. No acute fracture. Left ankle, left foot, left calcaneus: Chronic, healed distal left fibular shaft fracture. Comminuted left calcaneal fracture with central depression. Comminuted, displaced, intra-articular left fifth metatarsal base fracture. Dictated by: Primo Moreno M.D. The radiology attending physician has personally reviewed this study, and had reviewed and/or edited this written report and agrees with it. Electronically signed by: Obey Nichole M.D. XR Radius Ulna Left 2 Views Result Date: 12/10/2020 1. Centrally depressed comminuted right calcaneus fracture. 2. Comminuted and displaced distal right tibial fracture involving the medial and posterior malleoli. Mildly displaced right fibular neck fracture. 3. Mildly displaced left acetabular fracture. 4. Left triquetral avulsion fracture. ADDENDUM - This addendum is being placed on the report for a time dependent finding on a patient who is admitted to the hospital (2B). Upon further review with the attending physician, there is a likely triquetral avulsion fracture. Recommend follow up of the Incidental triquetral fracture Additional Imaging less than 1 month with orthopedic hand service. Dictated by: Primo Moreno M.D. The radiology attending physician has personally reviewed this study, and had reviewed and/or edited this written report and agrees with it. Electronically signed by: Obey Nichole M.D. XR Wrist Left 3 or More Views Result Date: 12/10/2020 1. Centrally depressed comminuted right calcaneus fracture. 2. Comminuted and displaced distal right tibial fracture involving the medial and posterior malleoli. Mildly displaced right fibular neck fracture. 3. Mildly displaced left acetabular fracture. 4. Left triquetral avulsion fracture. ADDENDUM - This addendum is being placed on the report for a time dependent finding on a patient who is admitted to the hospital (2B). Upon further review with the attending physician, there is a likely triquetral avulsion fracture. Recommend follow up of the Incidental triquetral fracture Additional Imaging less than 1 month with orthopedic hand service. Dictated by: Primo Moreno M.D. The radiology attending physician has personally reviewed this study, and had reviewed and/or edited this written report and agrees with it. Electronically signed by: Obey Nichole M.D. XR Wrist Right 3 or More Views Result Date: 12/10/2020 Right hand, right wrist: Alignment is normal. No acute fracture. Left shoulder: Alignment is normal. Glenohumeral and acromioclavicular joint spaces are normal. No acute fracture. Left ankle, left foot, left calcaneus: Chronic, healed distal left fibular shaft fracture. Comminuted left calcaneal fracture with central depression. Comminuted, displaced, intra-articular left fifth metatarsal base fracture. Dictated by: Primo Moreno M.D. The radiology attending physician has personally reviewed this study, and had reviewed and/or edited this written report and agrees with it. Electronically signed by: Obey Nichole M.D. XR Hand Left 3 or More Views Result Date: 12/10/2020 1. Centrally depressed comminuted right calcaneus fracture. 2. Comminuted and displaced distal right tibial fracture involving the medial and posterior malleoli. Mildly displaced right fibular neck fracture. 3. Mildly displaced left acetabular fracture. 4. Left triquetral avulsion fracture. ADDENDUM - This addendum is being placed on the report for a time dependent finding on a patient who is admitted to the hospital (2B). Upon further review with the attending physician, there is a likely triquetral avulsion fracture. Recommend follow up of the Incidental triquetral fracture Additional Imaging less than 1 month with orthopedic hand service. Dictated by: Primo Moreno M.D. The radiology attending physician has personally reviewed this study, and had reviewed and/or edited this written report and agrees with it. Electronically signed by: Obey Nichole M.D. XR Hand Right 3 or More Views Result Date: 12/10/2020 Right hand, right wrist: Alignment is normal. No acute fracture. Left shoulder: Alignment is normal. Glenohumeral and acromioclavicular joint spaces are normal. No acute fracture. Left ankle, left foot, left calcaneus: Chronic, healed distal left fibular shaft fracture. Comminuted left calcaneal fracture with central depression. Comminuted, displaced, intra-articular left fifth metatarsal base fracture. Dictated by: Primo Moreno M.D. The radiology attending physician has personally reviewed this study, and had reviewed and/or edited this written report and agrees with it. Electronically signed by: Obey Nichole M.D. XR Knee Left 1 or 2 Views Result Date: 12/10/2020 1. Centrally depressed comminuted right calcaneus fracture. 2. Comminuted and displaced distal right tibial fracture involving the medial and posterior malleoli. Mildly displaced right fibular neck fracture. 3. Mildly displaced left acetabular fracture. 4. Left triquetral avulsion fracture. ADDENDUM - This addendum is being placed on the report for a time dependent finding on a patient who is admitted to the hospital (2B). Upon further review with the attending physician, there is a likely triquetral avulsion fracture. Recommend follow up of the Incidental triquetral fracture Additional Imaging less than 1 month with orthopedic hand service. Dictated by: Primo Moreno M.D. The radiology attending physician has personally reviewed this study, and had reviewed and/or edited this written report and agrees with it. Electronically signed by: Obey Nichole M.D. XR Knee Right 1 or 2 Views Result Date: 12/10/2020 1. Centrally depressed comminuted right calcaneus fracture. 2. Comminuted and displaced distal right tibial fracture involving the medial and posterior malleoli. Mildly displaced right fibular neck fracture. 3. Mildly displaced left acetabular fracture. 4. Left triquetral avulsion fracture. ADDENDUM - This addendum is being placed on the report for a time dependent finding on a patient who is admitted to the hospital (2B). Upon further review with the attending physician, there is a likely triquetral avulsion fracture. Recommend follow up of the Incidental triquetral fracture Additional Imaging less than 1 month with orthopedic hand service. Dictated by: Primo Moreno M.D. The radiology attending physician has personally reviewed this study, and had reviewed and/or edited this written report and agrees with it. Electronically signed by: Obey Nichole M.D. XR Tibia Fibula Right 2 Views Result Date: 12/10/2020 1. Centrally depressed comminuted right calcaneus fracture. 2. Comminuted and displaced distal right tibial fracture involving the medial and posterior malleoli. Mildly displaced right fibular neck fracture. 3. Mildly displaced left acetabular fracture. 4. Left triquetral avulsion fracture. ADDENDUM - This addendum is being placed on the report for a time dependent finding on a patient who is admitted to the hospital (2B). Upon further review with the attending physician, there is a likely triquetral avulsion fracture. Recommend follow up of the Incidental triquetral fracture Additional Imaging less than 1 month with orthopedic hand service. Dictated by: Primo Moreno M.D. The radiology attending physician has personally reviewed this study, and had reviewed and/or edited this written report and agrees with it. Electronically signed by: Obey Nichole M.D. XR Ankle Left 3 or More Views Result Date: 12/10/2020 Right hand, right wrist: Alignment is normal. No acute fracture. Left shoulder: Alignment is normal. Glenohumeral and acromioclavicular joint spaces are normal. No acute fracture. Left ankle, left foot, left calcaneus: Chronic, healed distal left fibular shaft fracture. Comminuted left calcaneal fracture with central depression. Comminuted, displaced, intra-articular left fifth metatarsal base fracture. Dictated by: Primo Moreno M.D. The radiology attending physician has personally reviewed this study, and had reviewed and/or edited this written report and agrees with it. Electronically signed by: Obey Nichole M.D. XR Ankle Right 3 or More Views Result Date: 12/10/2020 1. Centrally depressed comminuted right calcaneus fracture. 2. Comminuted and displaced distal right tibial fracture involving the medial and posterior malleoli. Mildly displaced right fibular neck fracture. 3. Mildly displaced left acetabular fracture. 4. Left triquetral avulsion fracture. ADDENDUM - This addendum is being placed on the report for a time dependent finding on a patient who is admitted to the hospital (2B). Upon further review with the attending physician, there is a likely triquetral avulsion fracture. Recommend follow up of the Incidental triquetral fracture Additional Imaging less than 1 month with orthopedic hand service. Dictated by: Primo Moreno M.D. The radiology attending physician has personally reviewed this study, and had reviewed and/or edited this written report and agrees with it. Electronically signed by: Obey Nichole M.D. XR Foot Left 3 or More Views Result Date: 12/10/2020 Right hand, right wrist: Alignment is normal. No acute fracture. Left shoulder: Alignment is normal. Glenohumeral and acromioclavicular joint spaces are normal. No acute fracture. Left ankle, left foot, left calcaneus: Chronic, healed distal left fibular shaft fracture. Comminuted left calcaneal fracture with central depression. Comminuted, displaced, intra-articular left fifth metatarsal base fracture. Dictated by: Primo Moreno M.D. The radiology attending physician has personally reviewed this study, and had reviewed and/or edited this written report and agrees with it. Electronically signed by: Obey Nichole M.D. XR Foot Right 3 or More Views Result Date: 12/10/2020 1. Centrally depressed comminuted right calcaneus fracture. 2. Comminuted and displaced distal right tibial fracture involving the medial and posterior malleoli. Mildly displaced right fibular neck fracture. 3. Mildly displaced left acetabular fracture. 4. Left triquetral avulsion fracture. ADDENDUM - This addendum is being placed on the report for a time dependent finding on a patient who is admitted to the hospital (2B). Upon further review with the attending physician, there is a likely triquetral avulsion fracture. Recommend follow up of the Incidental triquetral fracture Additional Imaging less than 1 month with orthopedic hand service. Dictated by: Primo Moreno M.D. The radiology attending physician has personally reviewed this study, and had reviewed and/or edited this written report and agrees with it. Electronically signed by: Obey Nichole M.D. XR Calcaneus Left 2 or More Views Result Date: 12/10/2020 Right hand, right wrist: Alignment is normal. No acute fracture. Left shoulder: Alignment is normal. Glenohumeral and acromioclavicular joint spaces are normal. No acute fracture. Left ankle, left foot, left calcaneus: Chronic, healed distal left fibular shaft fracture. Comminuted left calcaneal fracture with central depression. Comminuted, displaced, intra-articular left fifth metatarsal base fracture. Dictated by: Primo Moreno M.D. The radiology attending physician has personally reviewed this study, and had reviewed and/or edited this written report and agrees with it. Electronically signed by: Obey Nichole M.D. XR Calcaneus Right 2 or More Views Result Date: 12/10/2020 1. Centrally depressed comminuted right calcaneus fracture. 2. Comminuted and displaced distal right tibial fracture involving the medial and posterior malleoli. Mildly displaced right fibular neck fracture. 3. Mildly displaced left acetabular fracture. 4. Left triquetral avulsion fracture. ADDENDUM - This addendum is being placed on the report for a time dependent finding on a patient who is admitted to the hospital (2B). Upon further review with the attending physician, there is a likely triquetral avulsion fracture. Recommend follow up of the Incidental triquetral fracture Additional Imaging less than 1 month with orthopedic hand service. Dictated by: Primo Moreno M.D. The radiology attending physician has personally reviewed this study, and had reviewed and/or edited this written report and agrees with it. Electronically signed by: Obey Nichole M.D. XR Chest 1 Vw Portable Result Date: 12/09/2020 1. Low lung volumes and patchy atelectasis, otherwise, clear lungs. 2. No evidence of acute fracture in pelvis single view. Electronically signed by: Ivan Mckinney M.D. CT Foot Left WO Contrast Result Date: 12/10/2020 1. Markedly comminuted mildly displaced intra-articular left calcaneus fracture. 2. Comminuted mildly displaced intra-articular fracture of the base of the left 5th metatarsal. Electronically signed by: Abdiel Umanzor M.D. XR Hip Left 4 or More Views Result Date: 12/10/2020 1. Centrally depressed comminuted right calcaneus fracture. 2. Comminuted and displaced distal right tibial fracture involving the medial and posterior malleoli. Mildly displaced right fibular neck fracture. 3. Mildly displaced left acetabular fracture. 4. Left triquetral avulsion fracture. ADDENDUM - This addendum is being placed on the report for a time dependent finding on a patient who is admitted to the hospital (2B). Upon further review with the attending physician, there is a likely triquetral avulsion fracture. Recommend follow up of the Incidental triquetral fracture Additional Imaging less than 1 month with orthopedic hand service. Dictated by: Primo Moreno M.D. The radiology attending physician has personally reviewed this study, and had reviewed and/or edited this written report and agrees with it. Electronically signed by: Obey Nichole M.D. XR Femur Left 2 or More Views Result Date: 12/10/2020 1. Centrally depressed comminuted right calcaneus fracture. 2. Comminuted and displaced distal right tibial fracture involving the medial and posterior malleoli. Mildly displaced right fibular neck fracture. 3. Mildly displaced left acetabular fracture. 4. Left triquetral avulsion fracture. ADDENDUM - This addendum is being placed on the report for a time dependent finding on a patient who is admitted to the hospital (2B). Upon further review with the attending physician, there is a likely triquetral avulsion fracture. Recommend follow up of the Incidental triquetral fracture Additional Imaging less than 1 month with orthopedic hand service. Dictated by: Primo Moreno M.D. The radiology attending physician has personally reviewed this study, and had reviewed and/or edited this written report and agrees with it. Electronically signed by: Obey Nichole M.D. CT Head Cervical Face WO Contrast Result Date: 12/09/2020 1. Complex facial and left orbital fractures with involvement of the left zygomatic arch, right pterygoid plate, bilateral maxillary sinus, as detailed above. 2. Radiopaque foreign body in the left nasal soft tissue. 3. Left zygomatic complex fracture extending to the left temporomandibular joint. L imited evaluation of the mandible due to motion artifact. 4. No acute intracranial abnormality. 5. No evidence of acute fracture in the cervical, thoracic, or lumbar spine. Dictated by: Nikolas Logan M.D. The radiology attending physician has personally reviewed this study, and had reviewed and/or edited this written report and agrees with it. Electronically signed by: Desmond Landers M.D, PHD CT Chest Abdomen Pelvis W Contrast Result Date: 12/10/2020 1. No evidence of traumatic visceral injury in the chest, abdomen or pelvis. 2. Mildly displaced T-shaped left acetabular fracture. 3. Right anterior fourth rib fracture. ADDENDUM - This addendum is being placed on the report for a time dependent finding on a patient who is admitted to the hospital(2B). Upon additional review of the imaging and the attending radiologist there is a following additional findings: There is a mildly displaced left sacral fracture with extension into the S3-S4 neuroforamen. There is an associated presacral hematoma. Findings in the lungs could represent aspiration or less likely mild contusions. These findings were communicated to Dr. Odonnell by Dr. Moreno at 0810 hours on 12/10/2020. Dictated by: Primo Moreno M.D. The radiology attending physician has personally reviewed this study, and had reviewed and/or edited this written report and agreeswith it. Electronically signed by: Obey Nichole M.D. XR Pelvis 1 or 2 Views Result Date: 12/09/2020 1. Low lung volumes and patchy atelectasis, otherwise, clear lungs. 2. No evidence of acute fracture in pelvis single view. Electronically signed by: Ivan Mckinney M.D. CT Recon Thoracic and Lumbar Spine W Contrast (C) Result Date: 12/09/2020 1. Complex facial and left orbital fractures with involvement of the left zygomatic arch, right pterygoid plate, bilateral maxillary sinus, as detailed above. 2. Radiopaque foreign body in the left nasal soft tissue. 3. Left zygomatic complex fracture extending to the left temporomandibular joint. L imited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 or events overnight. Pat s/p OR I&D of ulna, I&D left ankle, R LLE ex-fix placement, R index finger laceration repair, Left thigh laceration. Patient moreaway and C- collar to be removed. Opthalmology exam to be repeated. WBC 13, afebrile. Hgb 10.2 Na 132, FWR. PT/OT. Awaiting Ortho OR plan. 12/10: arrived to floor from ED and proceeded to OR with ortho: LUE I&D, RLE I&D and ex fix,L thigh lac repair - one BP 82/66 ON, quickly corrected to 159/89, likely spurious - admission UDS positive for amphetamines, cannabis, cocaine, fentanyl; ethanol 15 - seen by ENT in ED; plan for delayed operative management, pureed diet, nasal precautions Pain:controlled Nausea: No Flatus: No Bowel Movement: No Medications: Current Facility-Administered Medications: ??? acetaminophen (TYLENOL) tablet 1,000 mg, 1,000 mg, oral, Q6H MARILUZ, Kaylan Vasquez MD, 1,000 mg at 12/17/20 0508 ??? cyclobenzaprine (FLEXERIL) tablet 10 mg, 10 mg, oral, TID, Betsy Schultz MD, 10 mg at 12/17/20 0914 ??? docusate with cottonseed oil enema, , rectal, Once PRN, Nicole Alston MD ??? enoxaparin (LOVENOX) syringe 30 mg, 30 mg, subcutaneous, Q12H [facility], Betsy Schultz MD, 30 mg at 12/17/20 0913 ??? gabapentin (NEURONTIN) capsule 300 mg, 300 mg, oral, BID, Betsy Schultz MD, 300 mg at 12/17/20 0914 ??? HYDROmorphone (DILAUDID) injection 0.2 mg, 0.2 mg, intravenous, Q4H PRN, Kaylan Vasquez MD, 0.2 mg at 12/17/20 0641 ??? lidocaine (LIDODERM) 5 % patch 1 patch, 1 patch, transdermal, Daily, Kaylan Vasquez MD, Stopped at 12/16/202 ??? oxyCODONE (ROXICODONE) tablet 5 mg, 5 mg, oral, Q4H PRN, Kaylan Vasquez MD, 5 mg at 12/17/20 0531 ??? polyethylene glycol (MIRALAX) packet 17 g, 17 g, oral, Daily, Caty Zuñiga NP, 17 g at 12/17/20 0914 ??? senna-docusate (PERICOLACE) 8.6-50 mg per tablet 2 tablet, 2 tablet, oral, BID, Caty Zuñiga NP, 2 tablet at 12/17/20913 ??? sodium chloride 0.9% flush 0.5-20 mL, 0.5-20 mL, intra-catheter, Q8H MARILUZPedro Rami Mahmoud, MD, 10 mL at 12/16/202032 ??? sodium chloride 0.9% flush 0.5-20 mL, 0.5-20 mL, intra-catheter, PRN, Kaylan Vasquez MD ??? white petrolatum 42 % ointment, , topical, TID, [place], Betsy Garcia MD, Given at 12/17/20 09 Diet: Dietary Orders (From admission, onward) Start Ordered 12/16/20 1329 Adult Diet Restricted; Pureed; Gatorade Diet effective now Question Answer Comment ([facility]) Diet type Restricted Modified Consistency: Pureed Other Services: Gatorade 12/16/20 1328 12/15/20 1111 Oral Nutrition Supplements Select Supplement: Ensure Plus - Geovani All Meals Question: Select Supplement: Answer: Ensure Plus - Geovani 12/15/20 1110 Activity: NWB RLE, LLE, LUE Is&Os: I/O last 2 completed shifts: In: - Out: 1350 [Urine:1350] No intake/output data recorded. Physical Exam: 24hr Min/Max: Temp Min: 36.6 ??C (97.9 ??F) Max: 37.4 ??C (99.3 ??F) Pulse Min: 93 Max: 114 BP Min: 109/74 Max: 135/73 Resp Min: 18 Max: 18 SpO2 Min: 92 % Max: 98 % Vitals: 12/17/20 0754 BP: 112/69 Pulse: 93 Resp: 18 Temp: 36.7 ??C (98.1 ??F) SpO2: 93% Constitutional: lying in bed in no acute distress Head: normocephalic Neurologic: alert, oriented, conversational, appropriate. Moving all four extremities. 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 Eyes: conjunctivae pink, sclerae anicteric. PERRLA Neck: supple, trachea midline. Chest: symmetric chest wall excursion without visible deformity. Respiratory: no cyanosis. Breathing room air with no use of accessory musculature. IS at bedside. Cardiovascular: Regular rate and rhythm. Normal JVD supine. Gastrointestinal: soft, distended, nontender. No ecchymosis. No rebound/guarding. Musculoskeletal: all limbs soft and compressible. Warm and well perfused throughout. No edema. Ex-fix in place to RLE, LUE splint intact, bilateral furry boots. Wiggles toes Skin: grossly without lesion, facial abrasions Labs/Imaging: Recent Results (from the past 24 hour(s)) Basic metabolic panel Collection Time: 12/16/20 10:28 PM Result Value Ref Range Sodium 135 135 - 145 mmol/L Potassium, pl 4.2 3.3 - 4.9 mmol/L Chloride 101 97 - 110 mmol/L CO2 29 22 - 32 mmol/L Anion gap 5 2 - 15 mmol/L BUN 14 8 - 25 mg/dL Creatinine 0.74 (L) 0.80 - 1.30 mg/dL Glucose 121 70 - 199 mg/dL Calcium 8.6 8.5 - 10.3 mg/dL Magnesium Collection Time: 12/16/20 10:28 PM Result Value Ref Range Magnesium 2.0 1.4 - 2.5 mg/dL Phosphorus Collection Time: 12/16/20 10:28 PM Result Value Ref Range Phosphorus, pl 3.1 2.3 - 4.5 mg/dL XR Shoulder Left 2 or More Views Result Date: 12/10/2020 Right hand, right wrist: Alignment is normal. No acute fracture. Left shoulder: Alignment is normal. Glenohumeral and acromioclavicular joint spaces are normal. No acute fracture. Left ankle, left foot, left calcaneus: Chronic, healed distal left fibular shaft fracture. Comminuted left calcaneal fracture with central depression. Comminuted, displaced, intra-articular left fifth metatarsal base fracture. Dictated by: Primo Moreno M.D. The radiology attending physician has personally reviewed this study, and had reviewed and/or edited this written report and agrees with it. Electronically signed by: Obey Nichole M.D. XR Radius Ulna Left 2 Views Result Date: 12/10/2020 1. Centrally depressed comminuted right calcaneus fracture. 2. Comminuted and displaced distal right tibial fracture involving the medial and posterior malleoli. Mildly displaced right fibular neck fracture. 3. Mildly displaced left acetabular fracture. 4. Left triquetral avulsion fracture. ADDENDUM - This addendum is being placed on the report for a time dependent finding on a patient who is admitted to the hospital (2B). Upon further review with the attending physician, there is a likely triquetral avulsion fracture. Recommend follow up of the Incidental triquetral fracture Additional Imaging less than 1 month with orthopedic hand service. Dictated by: Primo Moreno M.D. The radiology attending physician has personally reviewed this study, and had reviewed and/or edited this written report and agrees with it. Electronically signed by: Obey Nichole M.D. XR Wrist Left 3 or More Views Result Date: 12/10/2020 1. Centrally depressed comminuted right calcaneus fracture. 2. Comminuted and displaced distal right tibial fracture involving the medial and posterior malleoli. Mildly displaced right fibular neck fracture. 3. Mildly displaced left acetabular fracture. 4. Left triquetral avulsion fracture. ADDENDUM - This addendum is being placed on the report for a time dependent finding on a patient who is admitted to the hospital (2B). Upon further review with the attending physician, there is a likely triquetral avulsion fracture. Recommend follow up of the Incidental triquetral fracture Additional Imaging less than 1 month with orthopedic hand service. Dictated by: Primo Moreno M.D. The radiology attending physician has personally reviewed this study, and had reviewed and/or edited this written report and agrees with it. Electronically signed by: Obey Nichole M.D. XR Wrist Right 3 or More Views Result Date: 12/10/2020 Right hand, right wrist: Alignment is normal. No acute fracture. Left shoulder: Alignment is normal. Glenohumeral and acromioclavicular joint spaces are normal. No acute fracture. Left ankle, left foot, left calcaneus: Chronic, healed distal left fibular shaft fracture. Comminuted left calcaneal fracture with central depression. Comminuted, displaced, intra-articular left fifth metatarsal base fracture. Dictated by: Primo Moreno M.D. The radiology attending physician has personally reviewed this study, and had reviewed and/or edited this written report and agrees with it. Electronically signed by: Obey Nichole M.D. XR Hand Left 3 or More Views Result Date: 12/10/2020 1. Centrally depressed comminuted right calcaneus fracture. 2. Comminuted and displaced distal right tibial fracture involving the medial and posterior malleoli. Mildly displaced right fibular neck fracture. 3. Mildly displaced left acetabular fracture. 4. Left triquetral avulsion fracture. ADDENDUM - This addendum is being placed on the report for a time dependent finding on a patient who is admitted to the hospital (2B). Upon further review with the attending physician, there is a likely triquetral avulsion fracture. Recommend follow up of the Incidental triquetral fracture Additional Imaging less than 1 month with orthopedic hand service. Dictated by: Primo Moreno M.D. The radiology attending physician has personally reviewed this study, and had reviewed and/or edited this written report and agrees with it. Electronically signed by: Obey Nichole M.D. XR Hand Right 3 or More Views Result Date: 12/10/2020 Right hand, right wrist: Alignment is normal. No acute fracture. Left shoulder: Alignment is normal. Glenohumeral and acromioclavicular joint spaces are normal. No acute fracture. Left ankle, left foot, left calcaneus: Chronic, healed distal left fibular shaft fracture. Comminuted left calcaneal fracture with central depression. Comminuted, displaced, intra-articular left fifth metatarsal base fracture. Dictated by: Primo Moreno M.D. The radiology attending physician has personally reviewed this study, and had reviewed and/or edited this written report and agrees with it. Electronically signed by: Obey Nichole M.D. XR Knee Left 1 or 2 Views Result Date: 12/10/2020 1. Centrally depressed comminuted right calcaneus fracture. 2. Comminuted and displaced distal right tibial fracture involving the medial and posterior malleoli. Mildly displaced right fibular neck fracture. 3. Mildly displaced left acetabular fracture. 4. Left triquetral avulsion fracture. ADDENDUM - This addendum is being placed on the report for a time dependent finding on a patient who is admitted to the hospital (2B). Upon further review with the attending physician, there is a likely triquetral avulsion fracture. Recommend follow up of the Incidental triquetral fracture Additional Imaging less than 1 month with orthopedic hand service. Dictated by: Primo Moreno M.D. The radiology attending physician has personally reviewed this study, and had reviewed and/or edited this written report and agrees with it. Electronically signed by: Obey Nichole M.D. XR Knee Right 1 or 2 Views Result Date: 12/10/2020 1. Centrally depressed comminuted right calcaneus fracture. 2. Comminuted and displaced distal right tibial fracture involving the medial and posterior malleoli. Mildly displaced right fibular neck fracture. 3. Mildly displaced left acetabular fracture. 4. Left triquetral avulsion fracture. ADDENDUM - This addendum is being placed on the report for a time dependent finding on a patient who is admitted to the hospital (2B). Upon further review with the attending physician, there is a likely triquetral avulsion fracture. Recommend follow up of the Incidental triquetral fracture Additional Imaging less than 1 month with orthopedic hand service. Dictated by: Primo Moreno M.D. The radiology attending physician has personally reviewed this study, and had reviewed and/or edited this written report and agrees with it. Electronically signed by: Obey Nichole M.D. XR Tibia Fibula Right 2 Views Result Date: 12/10/2020 1. Centrally depressed comminuted right calcaneus fracture. 2. Comminuted and displaced distal right tibial fracture involving the medial and posterior malleoli. Mildly displaced right fibular neck fracture. 3. Mildly displaced left acetabular fracture. 4. Left triquetral avulsion fracture. ADDENDUM - This addendum is being placed on the report for a time dependent finding on a patient who is admitted to the hospital (2B). Upon further review with the attending physician, there is a likely triquetral avulsion fracture. Recommend follow up of the Incidental triquetral fracture Additional Imaging less than 1 month with orthopedic hand service. Dictated by: Primo Moreno M.D. The radiology attending physician has personally reviewed this study, and had reviewed and/or edited this written report and agrees with it. Electronically signed by: Obey Nichole M.D. XR Ankle Left 3 or More Views Result Date: 12/10/2020 Right hand, right wrist: Alignment is normal. No acute fracture. Left shoulder: Alignment is normal. Glenohumeral and acromioclavicular joint spaces are normal. No acute fracture. Left ankle, left foot, left calcaneus: Chronic, healed distal left fibular shaft fracture. Comminuted left calcaneal fracture with central depression. Comminuted, displaced, intra-articular left fifth metatarsal base fracture. Dictated by: Primo Moreno M.D. The radiology attending physician has personally reviewed this study, and had reviewed and/or edited this written report and agrees with it. Electronically signed by: Obey Nichole M.D. XR Ankle Right 3 or More Views Result Date: 12/10/2020 1. Centrally depressed comminuted right calcaneus fracture. 2. Comminuted and displaced distal right tibial fracture involving the medial and posterior malleoli. Mildly displaced right fibular neck fracture. 3. Mildly displaced left acetabular fracture. 4. Left triquetral avulsion fracture. ADDENDUM - This addendum is being placed on the report for a time dependent finding on a patient who is admitted to the hospital (2B). Upon further review with the attending physician, there is a likely triquetral avulsion fracture. Recommend follow up of the Incidental triquetral fracture Additional Imaging less than 1 month with orthopedic hand service. Dictated by: Primo Moreno M.D. The radiology attending physician has personally reviewed this study, and had reviewed and/or edited this written report and agrees with it. Electronically signed by: Obey Nichole M.D. XR Foot Left 3 or More Views Result Date: 12/10/2020 Right hand, right wrist: Alignment is normal. No acute fracture. Left shoulder: Alignment is normal. Glenohumeral and acromioclavicular joint spaces are normal. No acute fracture. Left ankle, left foot, left calcaneus: Chronic, healed distal left fibular shaft fracture. Comminuted left calcaneal fracture with central depression. Comminuted, displaced, intra-articular left fifth metatarsal base fracture. Dictated by: Primo Moreno M.D. The radiology attending physician has personally reviewed this study, and had reviewed and/or edited this written report and agrees with it. Electronically signed by: Obey Nichole M.D. XR Foot Right 3 or More Views Result Date: 12/10/2020 1. Centrally depressed comminuted right calcaneus fracture. 2. Comminuted and displaced distal right tibial fracture involving the medial and posterior malleoli. Mildly displaced right fibular neck fracture. 3. Mildly displaced left acetabular fracture. 4. Left triquetral avulsion fracture. ADDENDUM - This addendum is being placed on the report for a time dependent finding on a patient who is admitted to the hospital (2B). Upon further review with the attending physician, there is a likely triquetral avulsion fracture. Recommend follow up of the Incidental triquetral fracture Additional Imaging less than 1 month with orthopedic hand service. Dictated by: Primo Moreno M.D. The radiology attending physician has personally reviewed this study, and had reviewed and/or edited this written report and agrees with it. Electronically signed by: Obey Nichole M.D. XR Calcaneus Left 2 or More Views Result Date: 12/10/2020 Right hand, right wrist: Alignment is normal. No acute fracture. Left shoulder: Alignment is normal. Glenohumeral and acromioclavicular joint spaces are normal. No acute fracture. Left ankle, left foot, left calcaneus: Chronic, healed distal left fibular shaft fracture. Comminuted left calcaneal fracture with central depression. Comminuted, displaced, intra-articular left fifth metatarsal base fracture. Dictated by: Primo Moreno M.D. The radiology attending physician has personally reviewed this study, and had reviewed and/or edited this written report and agrees with it. Electronically signed by: Oeby Nichole M.D. XR Calcaneus Right 2 or More Views Result Date: 12/10/2020 1. Centrally depressed comminuted right calcaneus fracture. 2. Comminuted and displaced distal right tibial fracture involving the medial and posterior malleoli. Mildly displaced right fibular neck fracture. 3. Mildly displaced left acetabular fracture. 4. Left triquetral avulsion fracture. ADDENDUM - This addendum is being placed on the report for a time dependent finding on a patient who is admitted to the hospital (2B). Upon further review with the attending physician, there is a likely triquetral avulsion fracture. Recommend follow up of the Incidental triquetral fracture Additional Imaging less than 1 month with orthopedic hand service. Dictated by: Primo Moreno M.D. The radiology attending physician has personally reviewed this study, and had reviewed and/or edited this written report and agrees with it. Electronically signed by: Obey Nichole M.D. XR Chest 1 Vw Portable Result Date: 12/09/2020 1. Low lung volumes and patchy atelectasis, otherwise, clear lungs. 2. No evidence of acute fracture in pelvis single view. Electronically signed by: Ivan Mckinney M.D. CT Foot Left WO Contrast Result Date: 12/10/2020 1. Markedly comminuted mildly displaced intra-articular left calcaneus fracture. 2. Comminuted mildly displaced intra-articular fracture of the base of the left 5th metatarsal. Electronically signed by: Abdiel Umanzor M.D. XR Hip Left 4 or More Views Result Date: 12/10/2020 1. Centrally depressed comminuted right calcaneus fracture. 2. Comminuted and displaced distal right tibial fracture involving the medial and posterior malleoli. Mildly displaced right fibular neck fracture. 3. Mildly displaced left acetabular fracture. 4. Left triquetral avulsion fracture. ADDENDUM - This addendum is being placed on the report for a time dependent finding on a patient who is admitted to the hospital (2B). Upon further review with the attending physician, there is a likely triquetral avulsion fracture. Recommend follow up of the Incidental triquetral fracture Additional Imaging less than 1 month with orthopedic hand service. Dictated by: Primo Moreno M.D. The radiology attending physician has personally reviewed this study, and had reviewed and/or edited this written report and agrees with it. Electronically signed by: Obey Nichole M.D. XR Femur Left 2 or More Views Result Date: 12/10/2020 1. Centrally depressed comminuted right calcaneus fracture. 2. Comminuted and displaced distal right tibial fracture involving the medial and posterior malleoli. Mildly displaced right fibular neck fracture. 3. Mildly displaced left acetabular fracture. 4. Left triquetral avulsion fracture. ADDENDUM - This addendum is being placed on the report for a time dependent finding on a patient who is admitted to the hospital (2B). Upon further review with the attending physician, there is a likely triquetral avulsion fracture. Recommend follow up of the Incidental triquetral fracture Additional Imaging less than 1 month with orthopedic hand service. Dictated by: Primo Moreno M.D. The radiology attending physician has personally reviewed this study, and had reviewed and/or edited this written report and agrees with it. Electronically signed by: Obey Nichole M.D. CT Head Cervical Face WO Contrast Result Date: 12/09/2020 1. Complex facial and left orbital fractures with involvement of the left zygomatic arch, right pterygoid plate, bilateral maxillary sinus, as detailed above. 2. Radiopaque foreign body in the left nasal soft tissue. 3. Left zygomatic complex fracture extending to the left temporomandibular joint. L imited evaluation of the mandible due to motion artifact. 4. No acute intracranial abnormality. 5. No evidence of acute fracture in the cervical, thoracic, or lumbar spine. Dictated by: Nikolas Logan M.D. The radiology attending physician has personally reviewed this study, and had reviewed and/or edited this written report and agrees with it. Electronically signed by: Desmond Landers M.D, PHD CT Chest Abdomen Pelvis W Contrast Result Date: 12/10/2020 1. No evidence of traumatic visceral injury in the chest, abdomen or pelvis. 2. Mildly displaced T-shaped left acetabular fracture. 3. Right anterior fourth rib fracture. ADDENDUM - This addendum is being placed on the report for a time dependent finding on a patient who is admitted to the hospital(2B). Upon additional review of the imaging and the attending radiologist there is a following additional findings: There is a mildly displaced left sacral fracture with extension into the S3-S4 neuroforamen. There is an associated presacral hematoma. Findings in the lungs could represent aspiration or less likely mild contusions. These findings were communicated to Dr. Odonnell by Dr. Moreno at 0810 hours on 12/10/2020. Dictated by: Primo Chukwuneke, M.D. The radiology attending physician has personally reviewed this study, and had reviewed and/or edited this written report and agreeswith it. Electronically signed by: Obey Nichole M.D. XR Pelvis 1 or 2 Views Result Date: 12/09/2020 1. Low lung volumes and patchy atelectasis, otherwise, clear lungs. 2. No evidence of acute fracture in pelvis single view. Electronically signed by: Ivan Mckinney M.D. CT Recon Thoracic and Lumbar Spine W Contrast (C) Result Date: 12/09/2020 1. Complex facial and left orbital fractures with involvement of the left zygomatic arch, right pterygoid plate, bilateral maxillary sinus, as detailed above. 2. Radiopaque foreign body in the left nasal soft tissue. 3. Left zygomatic complex fracture extending to the left temporomandibular joint. L imited evaluation of the mandible due to motion artifact. 4. No acute intracranial abnormality. 5. No evidence of acute fracture in the cervical, thoracic, or lumbar spine. Dictated by: Nikolas Logan M.D. The radiology attending physician has personally reviewed this study, and had reviewed and/or edited this written report and agrees with it. Electronically signed by: Desmond Landers M.D, PHD Assessment and Plan: #L calcaneus fx - ortho consult - 12/12 s/p OR ORIF - NWB LLE - Has bulky drsg, and to transition to CAM boot - PT/OT #L 5th metatarsal fx - ortho consult - NWB LLE - CAM boot - PT/OT #R open calcaneus fx #R distal tib/fib fx - ortho consult - splinted in ED by ortho - 12/10 s/p OR for ex fix and washout of open fx - ancef/gentamicin x5d course, - received Tdap in ED - NWB RLE - Planned fixation on 12/19 #L acetabular fx - ortho consult - non- op - PT/OT - pain control #L sacral fx including S3-4 neuroforamen with presacral hematoma - ortho consult - listed as R sacral fx in ortho consult note; confirmed to be L with ortho - plan for nonoperative management - NWB LLE - PT/OT #L triquetral fx (wrist) #L open radio-occult ulna fx #left forearm laceration - Ortho consult - splinted in ED by ortho - 12/10 OR for I&D, and laceration repair - NWB LUE - PT/OT #facial and L orbital fx: L zygomatic, R pterygoid plate, b/l max sinus, L zygomatic fx with L TMJ involvement - ENT consulted - anticipate delayed operative repair - facial lacs repaired by ENT in ED; bacitracin TID x3d, vaseline TID x11d - pureed diet only, nasal precautions - 12/[address] max/face -Multiple facial bone fractures, extension of fracture into the superior aspect of the left temporal mandibular joint laterally. No significant widening of the temporomandibular joints or mandibular fracture seen. - Missed ENT appointment on 12/15 - need to leave patient with clinic number at discharge [phone] #L eye vitreous hemorrhage #L eye possible traumatic iritis - ophthalmology - uncooperative with exam on night of admission, - head of bed elevation - 12/11 repeat exam - clearing vit heme w/o globe violation or RD, likely traumatic iris tear (not appreciated on portable) vs traumatic mydriasis - WIll plan to follow closely with repeat DFEx 3-4 days with B scan #R 4th rib fx - pain control - pulmonary hygiene - scheduled IS - wean O2 as tolerated #left posterior thigh laceration - 12/10 repaired by ortho in the OR #acute post-traumatic and post-operative pain - tylenol q 6 hrs MARILUZ - lidocaine patches - flexeril 10mg TID - gabapentin 300mg BID - prn oxycodone - dilaudid PRN #polysubstance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 g, oral, Daily, Caty Zuñiga, PAUL ??? senna-docusate (PERICOLACE) 8.6-50 mg per tablet 2 tablet, 2 tablet, oral, BID, Caty Zuñiga, PAUL ??? sodium chloride 0.9% flush 0.5-20 mL, 0.5-20 mL, intra-catheter, Q8H [facility], Kaylan Vasquez MD, 10 mL at 12/13/20 0523 ??? sodium chloride 0.9% flush 0.5-20 mL, 0.5-20 mL, intra-catheter, PRN, Kaylan Vasquez MD ??? white petrolatum 42 % ointment, , topical, TID, Betsy Schultz MD Diet: Dietary Orders (From admission, onward) Start Ordered 12/12/202153 Adult Diet Restricted; Pureed Diet effective now Question Answer Comment ([facility]) Diet type Restricted Modified Consistency: Pureed 12/12/202153 Activity: NWB RLE, LLE, LUE Is&Os: I/O last 2 completed shifts: In: 1000 [I.V.:1000] Out: 4900 [Urine:4900] I/O this shift: In: 960.4 [I.V.:960.4] Out: 375 [Urine:375] Physical Exam: 24hr Min/Max: Temp Min: 36.4 ??C (97.5 ??F) Max: 37.8 ??C (100 ??F) Pulse Min: 97 Max: 127 BP Min: 106/64 Max: 145/82 Resp Min: 11 Max: 19 SpO2 Min: 90 % Max: 100 % Vitals: 12/13/20 0810 BP: 117/67 Pulse: 98 Resp: 16 Temp: 36.8 ??C (98.2 ??F) SpO2: 96% Constitutional: lying in bed in no acute distress, somnolent, rousable Head: normocephalic Neurologic: alert, oriented, conversational, appropriate. Moving all four extremities. 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 Eyes: conjunctivae pink, sclerae anicteric. PERRLA Neck: supple, trachea midline. Chest: symmetric chest wall excursion without visible deformity. Respiratory: no cyanosis. Breathing room air with no use of accessory musculature. IS at bedside. Cardiovascular: Regular rate and rhythm. Normal JVD supine. Gastrointestinal: soft, nondistended, nontender. No ecchymosis. No rebound/guarding. Musculoskeletal: all limbs soft and compressible. Warm and well perfused throughout. No edema. Ex-fix in place to RLE, LLE splint intact, LUE splint intact. Skin: grossly without lesion, facial abrasions Labs/Imaging: Recent Results (from the past 24 hour(s)) Basic metabolic panel Collection Time: 12/12/20 10:53 PM Result Value Ref Range Sodium 130 (L) 135 - 145 mmol/L Potassium, pl 4.1 3.3 - 4.9 mmol/L Chloride 97 97 - 110 mmol/L CO2 26 22 - 32 mmol/L Anion gap 7 2 - 15 mmol/L BUN 11 8 - 25 mg/dL Creatinine 0.82 0.80 - 1.30 mg/dL Glucose 109 70 - 199 mg/dL Calcium 8.0 (L) 8.5 - 10.3 mg/dL CBC without differential Collection Time: 12/12/20 10:53 PM Result Value Ref Range WBC 10.7 (H) 3.8 - 9.9 K/cumm Hgb 8.4 (L) 13.0 - 17.5 g/dL Hct 24.6 (L) 38.9 - 50.3 % Plt 175 150 - 400 K/cumm MPV 9.4 9.1 - 12.3 fL RBC 2.54 (L) 4.30 - 5.80 M/cumm MCV 96.9 (H) 81.3 - 96.4 fL MCH 33.1 27.1 - 33.3 pg MCHC 34.1 32.3 - 35.7 g/dL RDW CV 13.6 11.1 - 14.9 % RDW SD 48.5 (H) 35.7 - 48.1 fL NRBC abs 0.00 0.00 - 0.01 K/cumm Magnesium Collection Time: 12/12/20 10:53 PM Result Value Ref Range Magnesium 1.9 1.4 - 2.5 mg/dL Phosphorus Collection Time: 12/12/20 10:53 PM Result Value Ref Range Phosphorus, pl 1.8 (L) 2.3 - 4.5 mg/dL XR Shoulder Left 2 or More Views Result Date: 12/10/2020 Right hand, right wrist: Alignment is normal. No acute fracture. Left shoulder: Alignment is normal. Glenohumeral and acromioclavicular joint spaces are normal. No acute fracture. Left ankle, left foot, left calcaneus: Chronic, healed distal left fibular shaft fracture. Comminuted left calcaneal fracture with central depression. Comminuted, displaced, intra-articular left fifth metatarsal base fracture. Dictated by: Primo Moreno M.D. The radiology attending physician has personally reviewed this study, and had reviewed and/or edited this written report and agrees with it. Electronically signed by: Obey Nichole M.D. XR Radius Ulna Left 2 Views Result Date: 12/10/2020 1. Centrally depressed comminuted right calcaneus fracture. 2. Comminuted and displaced distal right tibial fracture involving the medial and posterior malleoli. Mildly displaced right fibular neck fracture. 3. Mildly displaced left acetabular fracture. 4. Left triquetral avulsion fracture. ADDENDUM - This addendum is being placed on the report for a time dependent finding on a patient who is admitted to the hospital (2B). Upon further review with the attending physician, there is a likely triquetral avulsion fracture. Recommend follow up of the Incidental triquetral fracture Additional Imaging less than 1 month with orthopedic hand service. Dictated by: Primo Moreno M.D. The radiology attending physician has personally reviewed this study, and had reviewed and/or edited this written report and agrees with it. Electronically signed by: Obey Nichole M.D. XR Wrist Left 3 or More Views Result Date: 12/10/2020 1. Centrally depressed comminuted right calcaneus fracture. 2. Comminuted and displaced distal right tibial fracture involving the medial and posterior malleoli. Mildly displaced right fibular neck fracture. 3. Mildly displaced left acetabular fracture. 4. Left triquetral avulsion fracture. ADDENDUM - This addendum is being placed on the report for a time dependent finding on a patient who is admitted to the hospital (2B). Upon further review with the attending physician, there is a likely triquetral avulsion fracture. Recommend follow up of the Incidental triquetral fracture Additional Imaging less than 1 month with orthopedic hand service. Dictated by: Primo Moreno M.D. The radiology attending physician has personally reviewed this study, and had reviewed and/or edited this written report and agrees with it. Electronically signed by: Obey Nichole M.D. XR Wrist Right 3 or More Views Result Date: 12/10/2020 Right hand, right wrist: Alignment is normal. No acute fracture. Left shoulder: Alignment is normal. Glenohumeral and acromioclavicular joint spaces are normal. No acute fracture. Left ankle, left foot, left calcaneus: Chronic, healed distal left fibular shaft fracture. Comminuted left calcaneal fracture with central depression. Comminuted, displaced, intra-articular left fifth metatarsal base fracture. Dictated by: Primo Moreno M.D. The radiology attending physician has personally reviewed this study, and had reviewed and/or edited this written report and agrees with it. Electronically signed by: Obey Nichole M.D. XR Hand Left 3 or More Views Result Date: 12/10/2020 1. Centrally depressed comminuted right calcaneus fracture. 2. Comminuted and displaced distal right tibial fracture involving the medial and posterior malleoli. Mildly displaced right fibular neck fracture. 3. Mildly displaced left acetabular fracture. 4. Left triquetral avulsion fracture. ADDENDUM - This addendum is being placed on the report for a time dependent finding on a patient who is admitted to the hospital (2B). Upon further review with the attending physician, there is a likely triquetral avulsion fracture. Recommend follow up of the Incidental triquetral fracture Additional Imaging less than 1 month with orthopedic hand service. Dictated by: Primo Moreno M.D. The radiology attending physician has personally reviewed this study, and had reviewed and/or edited this written report and agrees with it. Electronically signed by: Obey Nichole M.D. XR Hand Right 3 or More Views Result Date: 12/10/2020 Right hand, right wrist: Alignment is normal. No acute fracture. Left shoulder: Alignment is normal. Glenohumeral and acromioclavicular joint spaces are normal. No acute fracture. Left ankle, left foot, left calcaneus: Chronic, healed distal left fibular shaft fracture. Comminuted left calcaneal fracture with central depression. Comminuted, displaced, intra-articular left fifth metatarsal base fracture. Dictated by: Primo Moreno M.D. The radiology attending physician has personally reviewed this study, and had reviewed and/or edited this written report and agrees with it. Electronically signed by: Obey Nichole M.D. XR Knee Left 1 or 2 Views Result Date: 12/10/2020 1. Centrally depressed comminuted right calcaneus fracture. 2. Comminuted and displaced distal right tibial fracture involving the medial and posterior malleoli. Mildly displaced right fibular neck fracture. 3. Mildly displaced left acetabular fracture. 4. Left triquetral avulsion fracture. ADDENDUM - This addendum is being placed on the report for a time dependent finding on a patient who is admitted to the hospital (2B). Upon further review with the attending physician, there is a likely triquetral avulsion fracture. Recommend follow up of the Incidental triquetral fracture Additional Imaging less than 1 month with orthopedic hand service. Dictated by: Primo Moreno M.D. The radiology attending physician has personally reviewed this study, and had reviewed and/or edited this written report and agrees with it. Electronically signed by: Obey Nichole M.D. XR Knee Right 1 or 2 Views Result Date: 12/10/2020 1. Centrally depressed comminuted right calcaneus fracture. 2. Comminuted and displaced distal right tibial fracture involving the medial and posterior malleoli. Mildly displaced right fibular neck fracture. 3. Mildly displaced left acetabular fracture. 4. Left triquetral avulsion fracture. ADDENDUM - This addendum is being placed on the report for a time dependent finding on a patient who is admitted to the hospital (2B). Upon further review with the attending physician, there is a likely triquetral avulsion fracture. Recommend follow up of the Incidental triquetral fracture Additional Imaging less than 1 month with orthopedic hand service. Dictated by: Primo Moreno M.D. The radiology attending physician has personally reviewed this study, and had reviewed and/or edited this written report and agrees with it. Electronically signed by: Obey Nichole M.D. XR Tibia Fibula Right 2 Views Result Date: 12/10/2020 1. Centrally depressed comminuted right calcaneus fracture. 2. Comminuted and displaced distal right tibial fracture involving the medial and posterior malleoli. Mildly displaced right fibular neck fracture. 3. Mildly displaced left acetabular fracture. 4. Left triquetral avulsion fracture. ADDENDUM - This addendum is being placed on the report for a time dependent finding on a patient who is admitted to the hospital (2B). Upon further review with the attending physician, there is a likely triquetral avulsion fracture. Recommend follow up of the Incidental triquetral fracture Additional Imaging less than 1 month with orthopedic hand service. Dictated by: Primo Moreno M.D. The radiology attending physician has personally reviewed this study, and had reviewed and/or edited this written report and agrees with it. Electronically signed by: Obey Nichole M.D. XR Ankle Left 3 or More Views Result Date: 12/10/2020 Right hand, right wrist: Alignment is normal. No acute fracture. Left shoulder: Alignment is normal. Glenohumeral and acromioclavicular joint spaces are normal. No acute fracture. Left ankle, left foot, left calcaneus: Chronic, healed distal left fibular shaft fracture. Comminuted left calcaneal fracture with central depression. Comminuted, displaced, intra-articular left fifth metatarsal base fracture. Dictated by: Primo Moreno M.D. The radiology attending physician has personally reviewed this study, and had reviewed and/or edited this written report and agrees with it. Electronically signed by: Obey Nichole M.D. XR Ankle Right 3 or More Views Result Date: 12/10/2020 1. Centrally depressed comminuted right calcaneus fracture. 2. Comminuted and displaced distal right tibial fracture involving the medial and posterior malleoli. Mildly displaced right fibular neck fracture. 3. Mildly displaced left acetabular fracture. 4. Left triquetral avulsion fracture. ADDENDUM - This addendum is being placed on the report for a time dependent finding on a patient who is admitted to the hospital (2B). Upon further review with the attending physician, there is a likely triquetral avulsion fracture. Recommend follow up of the Incidental triquetral fracture Additional Imaging less than 1 month with orthopedic hand service. Dictated by: Primo Moreno M.D. The radiology attending physician has personally reviewed this study, and had reviewed and/or edited this written report and agrees with it. Electronically signed by: Obey Nichole M.D. XR Foot Left 3 or More Views Result Date: 12/10/2020 Right hand, right wrist: Alignment is normal. No acute fracture. Left shoulder: Alignment is normal. Glenohumeral and acromioclavicular joint spaces are normal. No acute fracture. Left ankle, left foot, left calcaneus: Chronic, healed distal left fibular shaft fracture. Comminuted left calcaneal fracture with central depression. Comminuted, displaced, intra-articular left fifth metatarsal base fracture. Dictated by: Primo Moreno M.D. The radiology attending physician has personally reviewed this study, and had reviewed and/or edited this written report and agrees with it. Electronically signed by: Obey Nichole M.D. XR Foot Right 3 or More Views Result Date: 12/10/2020 1. Centrally depressed comminuted right calcaneus fracture. 2. Comminuted and displaced distal right tibial fracture involving the medial and posterior malleoli. Mildly displaced right fibular neck fracture. 3. Mildly displaced left acetabular fracture. 4. Left triquetral avulsion fracture. ADDENDUM - This addendum is being placed on the report for a time dependent finding on a patient who is admitted to the hospital (2B). Upon further review with the attending physician, there is a likely triquetral avulsion fracture. Recommend follow up of the Incidental triquetral fracture Additional Imaging less than 1 month with orthopedic hand service. Dictated by: Primo Moreno M.D. The radiology attending physician has personally reviewed this study, and had reviewed and/or edited this written report and agrees with it. Electronically signed by: Obey Nichole M.D. XR Calcaneus Left 2 or More Views Result Date: 12/10/2020 Right hand, right wrist: Alignment is normal. No acute fracture. Left shoulder: Alignment is normal. Glenohumeral and acromioclavicular joint spaces are normal. No acute fracture. Left ankle, left foot, left calcaneus: Chronic, healed distal left fibular shaft fracture. Comminuted left calcaneal fracture with central depression. Comminuted, displaced, intra-articular left fifth metatarsal base fracture. Dictated by: Primo Moreno M.D. The radiology attending physician has personally reviewed this study, and had reviewed and/or edited this written report and agrees with it. Electronically signed by: Obey Nichole M.D. XR Calcaneus Right 2 or More Views Result Date: 12/10/2020 1. Centrally depressed comminuted right calcaneus fracture. 2. Comminuted and displaced distal right tibial fracture involving the medial and posterior malleoli. Mildly displaced right fibular neck fracture. 3. Mildly displaced left acetabular fracture. 4. Left triquetral avulsion fracture. ADDENDUM - This addendum is being placed on the report for a time dependent finding on a patient who is admitted to the hospital (2B). Upon further review with the attending physician, there is a likely triquetral avulsion fracture. Recommend follow up of the Incidental triquetral fracture Additional Imaging less than 1 month with orthopedic hand service. Dictated by: Primo Moreno M.D. The radiology attending physician has personally reviewed this study, and had reviewed and/or edited this written report and agrees with it. Electronically signed by: Obey Nichole M.D. XR Chest 1 Vw Portable Result Date: 12/09/2020 1. Low lung volumes and patchy atelectasis, otherwise, clear lungs. 2. No evidence of acute fracture in pelvis single view. Electronically signed by: Ivan Mckinney M.D. CT Foot Left WO Contrast Result Date: 12/10/2020 1. Markedly comminuted mildly displaced intra-articular left calcaneus fracture. 2. Comminuted mildly displaced intra-articular fracture of the base of the left 5th metatarsal. Electronically signed by: Abdiel Umanzor M.D. XR Hip Left 4 or More Views Result Date: 12/10/2020 1. Centrally depressed comminuted right calcaneus fracture. 2. Comminuted and displaced distal right tibial fracture involving the medial and posterior malleoli. Mildly displaced right fibular neck fracture. 3. Mildly displaced left acetabular fracture. 4. Left triquetral avulsion fracture. ADDENDUM - This addendum is being placed on the report for a time dependent finding on a patient who is admitted to the hospital (2B). Upon further review with the attending physician, there is a likely triquetral avulsion fracture. Recommend follow up of the Incidental triquetral fracture Additional Imaging less than 1 month with orthopedic hand service. Dictated by: Primo Moreno M.D. The radiology attending physician has personally reviewed this study, and had reviewed and/or edited this written report and agrees with it. Electronically signed by: Obey Nihcole M.D. XR Femur Left 2 or More Views Result Date: 12/10/2020 1. Centrally depressed comminuted right calcaneus fracture. 2. Comminuted and displaced distal right tibial fracture involving the medial and posterior malleoli. Mildly displaced right fibular neck fracture. 3. Mildly displaced left acetabular fracture. 4. Left triquetral avulsion fracture. ADDENDUM - This addendum is being placed on the report for a time dependent finding on a patient who is admitted to the hospital (2B). Upon further review with the attending physician, there is a likely triquetral avulsion fracture. Recommend follow up of the Incidental triquetral fracture Additional Imaging less than 1 month with orthopedic hand service. Dictated by: Primo Moreno M.D. The radiology attending physician has personally reviewed this study, and had reviewed and/or edited this written report and agrees with it. Electronically signed by: Obey Nichole M.D. CT Head Cervical Face WO Contrast Result Date: 12/09/2020 1. Complex facial and left orbital fractures with involvement of the left zygomatic arch, right pterygoid plate, bilateral maxillary sinus, as detailed above. 2. Radiopaque foreign body in the left nasal soft tissue. 3. Left zygomatic complex fracture extending to the left temporomandibular joint. L imited evaluation of the mandible due to motion artifact. 4. No acute intracranial abnormality. 5. No evidence of acute fracture in the cervical, thoracic, or lumbar spine. Dictated by: Nikolas Logan M.D. The radiology attending physician has personally reviewed this study, and had reviewed and/or edited this written report and agrees with it. Electronically signed by: Desmond Landers M.D, PHD CT Chest Abdomen Pelvis W Contrast Result Date: 12/10/2020 1. No evidence of traumatic visceral injury in the chest, abdomen or pelvis. 2. Mildly displaced T-shaped left acetabular fracture. 3. Right anterior fourth rib fracture. ADDENDUM - This addendum is being placed on the report for a time dependent finding on a patient who is admitted to the hospital(2B). Upon additional review of the imaging and the attending radiologist there is a following additional findings: There is a mildly displaced left sacral fracture with extension into the S3-S4 neuroforamen. There is an associated presacral hematoma. Findings in the lungs could represent aspiration or less likely mild contusions. These findings were communicated to Dr. Odonnell by Dr. Moreno at 0810 hours on 12/10/2020. Dictated by: Primo Moreno M.D. The radiology attending physician has personally reviewed this study, and had reviewed and/or edited this written report and agreeswith it. Electronically signed by: Obey Nichole M.D. XR Pelvis 1 or 2 Views Result Date: 12/09/2020 1. Low lung volumes and patchy atelectasis, otherwise, clear lungs. 2. No evidence of acute fracture in pelvis single view. Electronically signed by: Ivan Mckinney M.D. CT Recon Thoracic and Lumbar Spine W Contrast (C) Result Date: 12/09/2020 1. Complex facial and left orbital fractures with involvement of the left zygomatic arch, right pterygoid plate, bilateral maxillary sinus, as detailed above. 2. Radiopaque foreign body in the left nasal soft tissue. 3. Left zygomatic complex fracture extending to the left temporomandibular joint. L imited evaluation of the mandible due to motion artifact. 4. No acute intracranial abnormality. 5. No evidence of acute fracture in the cervical, thoracic, or lumbar spine. Dictated by: Nikolas Logan M.D. The radiology attending physician has personally reviewed this study, and had reviewed and/or edited this written report and agrees with it. Electronically signed by: Desmond Landers M.D, PHD Assessment and Plan: #L calcaneus fx - ortho consult - 12/12 s/p OR ORIF - NWB LLE - Has bulky drsg, and to transition to CAM boot - PT/OT #L 5th metatarsal fx - ortho consult - NWB LLE - CAM boot - PT/OT #R open calcaneus fx #R distal tib/fib fx - ortho consult - splinted in ED by ortho - 12/10 s/p OR for ex fix and washout of open fx - ancef/gentamicin x5d course, - received Tdap in ED - NWB RLE - Possible fixation next week #L acetabular fx - ortho consult - non- op - PT/OT - pain control #L sacral fx including S3-4 neuroforamen with presacral hematoma - ortho consult - listed as R sacral fx in ortho consult note; confirmed to be L with ortho - plan for nonoperative management - NWB LLE - PT/OT #L triquetral fx (wrist) #L open radio-occult ulna fx #left forearm laceration - Ortho consult - splinted in ED by ortho - 12/10 OR for I&D, and laceration repair - NWB LUE - PT/OT #facial and L orbital fx: L zygomatic, R pterygoid plate, b/l max sinus, L zygomatic fx with L TMJ involvement - ENT consulted - anticipate delayed operative repair - facial lacs repaired by ENT in ED; bacitracin TID x3d, vaseline TID x11d - pureed diet only, nasal precautions - 12/[address] max/face -Multiple facial bone fractures, extension of fracture into the superior aspect of the left temporal mandibular joint laterally. No significant widening of the temporomandibular joints identified. No mandibular fracture seen. #L eye vitreous hemorrhage #L eye possible traumatic iritis - ophthalmology - uncooperative with exam on night of admission, - head of bed elevation - 12/11 repeat exam - clearing vit heme w/o globe violation or RD, likely traumatic iris tear (not appreciated on portable) vs traumatic mydriasis - WIll plan to follow closely with repeat DFEx 3-4 days with B scan #R 4th rib fx - pain control - pulmonary hygiene - scheduled IS - wean O2 as tolerated #left posterior thigh laceration - 12/10 repaired by ortho in the OR #acute post-traumatic and post-operative pain - tylenol q 6 hrs MARILUZ - lidocaine patches - flexeril 10mg TID - gabapentin 300mg BID - prn oxycodone - dilaudid PRN #polysubstance use - admission UDS positive for amphetamines, cannabis, cocaine, fentanyl; admission ethanol 15 - chemical dependency ordered DVT ppx: trauma lovenox 30 BID Dispo: pending PT/OT Cosigned by Corine Hodgson MD at 12/18/2020 3:50 AM CDT * Juan Gaona MD - 12/13/2020 6:44 AM CDT Orthopedic Surgery Trauma Service Daily Progress Note Subjective Marco A Deluna, [id number] Attending: Corine Hodgosn MD 50 y.o. male 1 Day Post-Op s/p Procedure(s) (LRB): OPEN REDUCTION INTERNAL FIXATION - CALCANEUS FRACTURE (Left) Interval History: No acute events overnight per chart review. The patient's vitals have remained relatively stable, and they have been afebrile. The operative extremity(s) is elevated. Overall, theirpain is well controlled. Hgb 8.4. Plan for OR for his R calc and pilon fxs on 12/19. Denies chest pain, shortness of breath, significant dizziness, vision changes. Objective Vitals: 24hr Min/Max: Temp Min: 36.4 ??C (97.5 ??F) Max: 37.8 ??C (100 ??F) Pulse Min: 97 Max: 127 BP Min: 106/64 Max: 145/82 Resp Min: 11 Max: 19 SpO2 Min: 90 % Max: 100 % I/O last 2 completed shifts: In: 1000 [I.V.:1000] Out: 3100 [Urine:3100] I/O this shift: In: - Out: 2450 [Urine:2450] Physical Exam: Gen: NAD A&O: x4 Surgical/Injured Extremity: LUE, BLE and Pelvis Dressing/wound: Dressing C/D/I Splint/Cast/External Fixator: Splint C/D/I, tolerating well Sensation: SILT DPN/SPN/Saph/Sural/Tibial in BLE, SILT Ax/M/U/R in LUE; denies numbness/tingling, no evidence of nerve palsy Motor: Wiggles all toes, +EPL/FPL/FDP2-5/IO Perfusion: 2+ radial pulse and normal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 CDT POCT CREATININE - DEVICE Routine 12/09/2020 7:48 PM CDT XR PELVIS 1 OR 2 VIEWS ED 12/09/2020 7:38 PM CDT XR CHEST 1 VIEW ED 12/09/2020 7:38 PM CDT DIFFERENTIAL AUTO STAT 12/09/2020 7:2 5 PM CDT CBC WITH AUTO DIFFERENTIAL STAT 12/09/2020 7:25 PM CDT APTT STAT 12/09/2020 7:25 PM CDT PROTIME-INR STAT 12/09/2020 7:25 PM CDT ETHANOL STAT 12/09/2020 7:25 PM CDT COMPREHENSIVE METABOLIC PANEL STAT 12/09/2020 7:25 PM CDT documented in this encounter Results * Differential, auto (12/24/2020 8:52 PM CDT) Neutrophil abs 4.5 1.7 - 6.5 K/cumm [facility] Imm gran abs 0.1 0.0 - 0.1 K/cumm [facility] Lymphocyte abs 2.1 0.8 - 3.3 K/cumm [facility] Monocyte abs 0.6 0.2 - 0.8 K/cumm [facility] Eosinophil abs 0.2 0.0 - 0.5 K/cumm [facility] Basophil abs 0.1 0.0 - 0.1 K/cumm [facility] Neutrophil pct 59.1 % [facility] Comment: Interpretive Data Percent cell count reference ranges are not reported, since discordance with absolute values may lead to misinterpretation of CBC data. Current Interpretive Data was last revised on 2017. Imm gran pct 0.9 % [facility] Comment: Interpretive Data Percent cell count reference ranges are not reported, since discordance with absolute values may lead to misinterpretation of CBC data. Current Interpretive Data was last revised on 2017. Lymphocyte pct 28.3 % [facility] Comment: Interpretive Data Percent cell count reference ranges are not reported, since discordance with absolute values may lead to misinterpretation of CBC data. Current Interpretive Data was last revised on 2017. Monocyte pct 8.3 % [facility] Comment: Interpretive Data Percent cell count reference ranges are not reported, since discordance with absolute values may lead to misinterpretation of CBC data. Current Interpretive Data was last revised on 2017. Eosinophil pct 2.2 % [facility] Comment: Interpretive Data Percent cell count reference ranges are not reported, since discordance with absolute values may lead to misinterpretation of CBC data. Current Interpretive Data was last revised on 2017. Basophil pct 1.2 % [facility] Comment: Interpretive Data Percent cell count reference ranges are not reported, since discordance with absolute values may lead to misinterpretation of CBC data. Current Interpretive Data was last revised on 2017. Blood specimen (specimen) 12/24/2020 8:52 PM CDT 12/24/2020 9:06 PM CDT us Corine Hodgson MD LAB BLOOD ORDERABLES Griselda l Result [facility] Department [place] [address] * (ABNORMAL) CBC with auto differential (12/24/2020 8:52 PM CDT) WBC 7.6 3.8 - 9.9 K/cumm [facility] Hgb 8.1(L) 13.0 - 17.5 g/dL [facility] Hct 25.5(L) 38.9 - 50.3 % [facility] Plt 877(H) 150 - 400 K/cumm [facility] MPV 8.5(L) 9.1 - 12.3 fL [facility] RBC 2.57(L) 4.30 - 5.80 M/cumm [facility] MCV 99.2(H) 81.3 - 96.4 fL [facility] MCH 31.5 27.1 - 33.3 pg [facility] MCHC 31.8(L) 32.3 - 35.7 g/dL [facility] RDW CV 14.3 11.1 - 14.9 % [facility] RDW SD 51.6(H) 35.7 - 48.1 fL [facility] NRBC abs 0.00 0.00 - 0.01 K/cumm [facility] Blood specimen (specimen) 12/24/2020 8:52 PM CDT 12/24/2020 9:06 PM CDT us Corine Hodgson MD LAB BLOOD ORDERABLES Griselda mitchell Result [facility] Department [place] [address] * Basic metabolic panel (12/24/2020 8:52 PM CDT) Sodium 136 135 - 145 mmol/L [facility] Potassium, pl 4.5 3.3 - 4.9 mmol/L [facility] Chloride 101 97 - 110 mmol/L [facility] CO2 30 22 - 32 mmol/L [facility] Anion gap 5 2 - 15 mmol/L [facility] BUN 14 8 - 25 mg/dL [facility] Creatinine 1.01 0.80 - 1.30 mg/dL [facility] Glucose 107 70 - 199 mg/dL [facility] Comment: Interpretive Data Fasting glucose >/= 126 mg/dl is diagnostic for diabetes. ?? Fasting is defined as no caloric intake for at least 8 hours. Fasting glucose between 100 mg/dl to 125 mg/dl is diagnostic of prediabetes. In a patient with classic symptoms of hyperglycemia or hyperglycemic crisis, a random glucose >/= 200 mg/dl is diagnostic for diabetes. In the absence of unequivocal hyperglycemia, results should be confirmed by repeat testing. The classification and Diagnosis of Diabetes Diabetes Care 2017;40 (Suppl. 1):S11. Current interpretive data was last revised 2017. Calcium 8.6 8.5 - 10.3 mg/dL [facility] Blood specimen (specimen) 12/24/2020 8:52 PM CDT 12/24/2020 9:06 PM CDT us Corine Hodgson MD LAB BLOOD ORDERABLES Griselda mitchell Result [facility] Department [place] [address] * Differential, auto (12/23/2020 9:15 PM CDT) Neutrophil abs 5.5 1.7 - 6.5 K/cumm [facility] Imm gran abs 0.1 0.0 - 0.1 K/cumm [facility] Lymphocyte abs 2.0 0.8 - 3.3 K/cumm [facility] Monocyte abs 0.8 0.2 - 0.8 K/cumm [facility] Eosinophil abs 0.2 0.0 - 0.5 K/cumm [facility] Basophil abs 0.1 0.0 - 0.1 K/cumm [facility] Neutrophil pct 64.4 % [facility] Comment: Interpretive Data Percent cell count reference ranges are not reported, since discordance with absolute values may lead to misinterpretation of CBC data. Current Interpretive Data was last revised on 2017. Imm gran pct 1.2 % [facility] Comment: Interpretive Data Percent cell count reference ranges are not reported, since discordance with absolute values may lead to misinterpretation of CBC data. Current Interpretive Data was last revised on 2017. Lymphocyte pct 22.9 % [facility] Comment: Interpretive Data Percent cell count reference ranges are not reported, since discordance with absolute values may lead to misinterpretation of CBC data. Current Interpretive Data was last revised on 2017. Monocyte pct 8.8 % [facility] Comment: Interpretive Data Percent cell count reference ranges are not reported, since discordance with absolute values may lead to misinterpretation of CBC data. Current Interpretive Data was last revised on 2017. Eosinophil pct 1.8 % [facility] Comment: Interpretive Data Percent cell count reference ranges are not reported, since discordance with absolute values may lead to misinterpretation of CBC data. Current Interpretive Data was last revised on 2017. Basophil pct 0.9 % [facility] Comment: Interpretive Data Percent cell count reference ranges are not reported, since discordance with absolute values may lead to misinterpretation of CBC data. Current Interpretive Data was last revised on 2017. Blood specimen (specimen) 12/23/2020 9:15 PM CDT 12/23/2020 10:31 PM CDT us Corine Hodgson MD LAB BLOOD ORDERABLES Griselda mitchell Result [facility] Department [place] [address] * (ABNORMAL) CBC with auto differential (12/23/2020 9:15 PM CDT) WBC 8.6 3.8 - 9.9 K/cumm [facility] Hgb 8.3(L) 13.0 - 17.5 g/dL [facility] Hct 26.1(L) 38.9 - 50.3 % [facility] Plt 880(H) 150 - 400 K/cumm [facility] MPV 8.8(L) 9.1 - 12.3 fL [facility] RBC 2.62(L) 4.30 - 5.80 M/cumm [facility] MCV 99.6(H) 81.3 - 96.4 fL [facility] MCH 31.7 27.1 - 33.3 pg [facility] MCHC 31.8(L) 32.3 - 35.7 g/dL [facility] RDW CV 14.4 11.1 - 14.9 % [facility] RDW SD 52.3(H) 35.7 - 48.1 fL [facility] NRBC abs 0.00 0.00 - 0.01 K/cumm [facility] Blood specimen (specimen) 12/23/2020 9:15 PM CDT 12/23/2020 10:31 PM CDT Corine Hodgson MD LAB BLOOD ORDERABLES Griselda l Result [facility] Department [place] [address] * (ABNORMAL) Basic metabolic panel (12/23/2020 9:15 PM CDT) [facility] Sodium 136 135 - 145 mmol/L [facility] Potassium, pl 3.9 3.3 - 4.9 mmol/L [facility] Chloride 102 97 - 110 mmol/L [facility] CO2 29 22 - 32 mmol/L [facility] Anion gap 5 2 - 15 mmol/L [facility] BUN 12 8 - 25 mg/dL [facility] Creatinine 0.73(L) 0.80 - 1.30 mg/dL [facility] Glucose 112 70 - 199 mg/dL [facility] Comment: Interpretive Data Fasting glucose >/= 126 mg/dl is diagnostic for diabetes. ?? Fasting is defined as no caloric intake for at least 8 hours. Fasting glucose between 100 mg/dl to 125 mg/dl is diagnostic of prediabetes. In a patient with classic symptoms of hyperglycemia or hyperglycemic crisis, a random glucose >/= 200 mg/dl is diagnostic for diabetes. In the absence of unequivocal hyperglycemia, results should be confirmed by repeat testing. The classification and Diagnosis of Diabetes Diabetes Care 2017;40 (Suppl. 1):S11. Current interpretive data was last revised 2017. Calcium 8.3(L) 8.5 - 10.3 mg/dL [facility] Blood specimen (specimen) 12/23/2020 9:15 PM CDT 12/23/2020 10:31 PM CDT Corine Hodgson MD LAB BLOOD ORDERABLES Griselda l Result [facility] Department [place] [address] * (ABNORMAL) Differential, auto (12/22/2020 10:27 PM CDT) Neutrophil abs 7.2(H) 1.7 - 6.5 K/cumm [facility] Imm gran abs 0.1 0.0 - 0.1 K/cumm [facility] Lymphocyte abs 1.9 0.8 - 3.3 K/cumm [facility] Monocyte abs 0.8 0.2 - 0.8 K/cumm [facility] Eosinophil abs 0.2 0.0 - 0.5 K/cumm [facility] Basophil abs 0.1 0.0 - 0.1 K/cumm [facility] Neutrophil pct 70.3 % [facility] Comment: Interpretive Data Percent cell count reference ranges are not reported, since discordance with absolute values may lead to misinterpretation of CBC data. Current Interpretive Data was last revised on 2017. Imm gran pct 1.3 % [facility] Comment: Interpretive Data Percent cell count reference ranges are not reported, since discordance with absolute values may lead to misinterpretation of CBC data. Current Interpretive Data was last revised on 2017. Lymphocyte pct 18.5 % [facility] Comment: Interpretive Data Percent cell count reference ranges are not reported, since discordance with absolute values may lead to misinterpretation of CBC data. Current Interpretive Data was last revised on 2017. Monocyte pct 7.5 % [facility] Comment: Interpretive Data Percent cell count reference ranges are not reported, since discordance with absolute values may lead to misinterpretation of CBC data. Current Interpretive Data was last revised on 2017. Eosinophil pct 1.5 % [facility] Comment: Interpretive Data Percent cell count reference ranges are not reported, since discordance with absolute values may lead to misinterpretation of CBC data. Current Interpretive Data was last revised on 2017. Basophil pct 0.9 % [facility] Comment: Interpretive Data Percent cell count reference ranges are not reported, since discordance with absolute values may lead to misinterpretation of CBC data. Current Interpretive Data was last revised on 2017. Blood specimen (specimen) 12/22/2020 10:27 PM CDT 12/22/2020 10:42 PM CDT Corine Hodgson MD LAB BLOOD ORDERABLES Griselda l Result Performing Organization Address City/[facility] Co de Phone Number [facility] Department [place] [address] * (ABNORMAL) CBC with auto differential (12/22/2020 10:27 PM CDT) WBC 10.2(H) 3.8 - 9.9 K/cumm [facility] Hgb 7.7(L) 13.0 - 17.5 g/dL [facility] Hct 23.4(L) 38.9 - 50.3 % [facility] Plt 768(H) 150 - 400 K/cumm [facility] MPV 8.6(L) 9.1 - 12.3 fL [facility] RBC 2.39(L) 4.30 - 5.80 M/cumm [facility] MCV 97.9(H) 81.3 - 96.4 fL [facility] MCH 32.2 27.1 - 33.3 pg [facility] MCHC 32.9 32.3 - 35.7 g/dL [facility] RDW CV 14.1 11.1 - 14.9 % [facility] RDW SD 51.4(H) 35.7 - 48.1 fL [facility] NRBC abs 0.00 0.00 - 0.01 K/cumm [facility] Blood specimen (specimen) 12/22/2020 10:27 PM CDT 12/22/2020 10:42 PM CDT Corine Hodgson MD LAB BLOOD ORDERABLES Griselda l Result Performing Organization Address City/[facility]/ZIP Co de Phone Number [facility] Department [place] [address] * (ABNORMAL) Basic metabolic panel (12/22/2020 10:27 PM CDT) Pathologist [facility] Sodium 136 135 - 145 mmol/L [facility] Potassium, pl 4.0 3.3 - 4.9 mmol/L [facility] Chloride 99 97 - 110 mmol/L [facility] CO2 30 22 - 32 mmol/L [facility] Anion gap 7 2 - 15 mmol/L [facility] BUN 15 8 - 25 mg/dL [facility] Creatinine 0.82 0.80 - 1.30 mg/dL [facility] Glucose 96 70 - 199 mg/dL [facility] Comment: Interpretive Data Fasting glucose >/= 126 mg/dl is diagnostic for diabetes. ?? Fasting is defined as no caloric intake for at least 8 hours. Fasting glucose between 100 mg/dl to 125 mg/dl is diagnostic of prediabetes. In a patient with classic symptoms of hyperglycemia or hyperglycemic crisis, a random glucose >/= 200 mg/dl is diagnostic for diabetes. In the absence of unequivocal hyperglycemia, results should be confirmed by repeat testing. The classification and Diagnosis of Diabetes Diabetes Care 2017;40 (Suppl. 1):S11. Current interpretive data was last revised 2017. Calcium 8.3(L) 8.5 - 10.3 mg/dL [facility] Blood specimen (specimen) 12/22/2020 10:27 PM CDT 12/22/2020 10:45 PM CDT us Corine Hodgson MD LAB BLOOD ORDERABLES Griselda l Result [facility] Department [place] [address] * (ABNORMAL) Differential, auto (12/21/2020 10:12 PM CDT) Pathologist [facility] Neutrophil abs 9.1(H) 1.7 - 6.5 K/cumm [facility] Imm gran abs 0.2(H) 0.0 - 0.1 K/cumm [facility] Lymphocyte abs 1.9 0.8 - 3.3 K/cumm [facility] Monocyte abs 1.0(H) 0.2 - 0.8 K/cumm [facility] Eosinophil abs 0.1 0.0 - 0.5 K/cumm [facility] Basophil abs 0.1 0.0 - 0.1 K/cumm [facility] Neutrophil pct 72.9 % [facility] Comment: Interpretive Data Percent cell count reference ranges are not reported, since discordance with absolute values may lead to misinterpretation of CBC data. Current Interpretive Data was last revised on 2017. Imm gran pct 1.7 % [facility] Comment: Interpretive Data Percent cell count reference ranges are not reported, since discordance with absolute values may lead to misinterpretation of CBC data. Current Interpretive Data was last revised on 2017. Lymphocyte pct 15.4 % [facility] Comment: Interpretive Data Percent cell count reference ranges are not reported, since discordance with absolute values may lead to misinterpretation of CBC data. Current Interpretive Data was last revised on 2017. Monocyte pct 8.3 % [facility] Comment: Interpretive Data Percent cell count reference ranges are not reported, since discordance with absolute values may lead to misinterpretation of CBC data. Current Interpretive Data was last revised on 2017. Eosinophil pct 1.1 % [facility] Comment: Interpretive Data Percent cell count reference ranges are not reported, since discordance with absolute values may lead to misinterpretation of CBC data. Current Interpretive Data was last revised on 2017. Basophil pct 0.6 % [facility] Comment: Interpretive Data Percent cell count reference ranges are not reported, since discordance with absolute values may lead to misinterpretation of CBC data. Current Interpretive Data was last revised on 2017. Blood specimen (specimen) 12/21/2020 10:12 PM CDT 12/21/2020 10:56 PM CDT us Corine Hodgson MD LAB BLOOD ORDERABLES Griselda mitchell Result [facility] Department [place] [address] * (ABNORMAL) CBC with auto differential (12/21/2020 10:12 PM CDT) Pathologist [facility] WBC 12.5(H) 3.8 - 9.9 K/cumm [facility] Hgb 8.1(L) 13.0 - 17.5 g/dL [facility] Hct 24.8(L) 38.9 - 50.3 % [facility] Plt 709(H) 150 - 400 K/cumm [facility] MPV 9.0(L) 9.1 - 12.3 fL [facility] RBC 2.54(L) 4.30 - 5.80 M/cumm [facility] MCV 97.6(H) 81.3 - 96.4 fL [facility] MCH 31.9 27.1 - 33.3 pg [facility] MCHC 32.7 32.3 - 35.7 g/dL [facility] RDW CV 14.1 11.1 - 14.9 % [facility] RDW SD 50.5(H) 35.7 - 48.1 fL [facility] NRBC abs 0.00 0.00 - 0.01 K/cumm [facility] Blood specimen (specimen) 12/21/2020 10:12 PM CDT 12/21/2020 10:56 PM CDT us Corine Hodgson MD LAB BLOOD ORDERABLES Griselda l Result [facility] [place] [address] * (ABNORMAL) Basic metabolic panel (12/21/2020 10:12 PM CDT) Pathologist [facility] Sodium 132(L) 135 - 145 mmol/L [facility] Potassium, pl 4.7 3.3 - 4.9 mmol/L [facility] Chloride 98 97 - 110 mmol/L [facility] CO2 29 22 - 32 mmol/L [facility] Anion gap 5 2 - 15 mmol/L [facility] BUN 16 8 - 25 mg/dL [facility] Creatinine 0.79(L) 0.80 - 1.30 mg/dL [facility] Glucose 109 70 - 199 mg/dL [facility] Comment: Interpretive Data Fasting glucose >/= 126 mg/dl is diagnostic for diabetes. ?? Fasting is defined as no caloric intake for at least 8 hours. Fasting glucose between 100 mg/dl to 125 mg/dl is diagnostic of prediabetes. In a patient with classic symptoms of hyperglycemia or hyperglycemic crisis, a random glucose >/= 200 mg/dl is diagnostic for diabetes. In the absence of unequivocal hyperglycemia, results should be confirmed by repeat testing. The classification and Diagnosis of Diabetes Diabetes Care 2017;40 (Suppl. 1):S11. Current interpretive data was last revised 2017. Calcium 8.3(L) 8.5 - 10.3 mg/dL [facility] Blood specimen (specimen) 12/21/2020 10:12 PM CDT 12/21/2020 10:56 PM CDT us Corine Hodgson MD LAB BLOOD ORDERABLES Griselda l Result Performing Organization Address City/[facility]/ZIP Co de Phone Number [facility] Department [place] [address] * [place] Fluoroscopy < 1 Hour (12/21/2020 10:12 AM CDT) Narrative [email or web address] - 12/21/2020 10:13 AM CDT The images from this study are not interpreted by Radiology. ??Please refer to the physician's procedure / OR operative note. us No Thomas MD IMG FLUOROSCOPY PROCEDURES F inal Result Performing Organization Address [facility]/ZIP Co de Phone Number [email or web address] * XR Calcaneus Right 2 or More Views (12/21/2020 10:11 AM CDT) Anatomical Region Laterality Modality Lower Extremities, Foot Right Computed Radiography 12/21/2020 10:2 4 AM CDT Impressions 12/21/2020 10:24 AM CDT 1. Interval reduced, internally fixated and grafted comminuted, depressed and intra-articular right calcaneal fracture. Electronically signed by: Rivas Parisi M.D. Narrative 12/21/2020 10:24 AM CDT EXAM: 1. ??XR CALCANEUS RIGHT 2 OR MORE VIEWS HISTORY: Right calcaneus fracture COMPARISON: Radiographs 12/19/2020, 12/09/[address] 12/10/2020 FINDINGS: 2 radiographs of the right calcaneus are submitted for interpretation. Interval reduced, internally fixated and grafted comminuted, depressed and intra-articular calcaneal fracture with fixation plate and screws. Instrumentation is intact. Partly imaged plate and screw fixation of the distal tibia. Tunnel tract within the cuboid. Soft tissue swelling surrounding the ankle. Procedure Note Rivas Parisi MD - 12/21/2020 EXAM: 1. XR CALCANEUS RIGHT 2 OR MORE VIEWS HISTORY: Right calcaneus fracture COMPARISON: Radiographs 12/19/2020, 12/09/[address] 12/10/2020 FINDINGS: 2 radiographs of the right calcaneus are submitted for interpretation. Interval reduced, internally fixated and grafted comminuted, depressed and intra-articular calcaneal fracture with fixation plate and screws. Instrumentation is intact. Partly imaged plate and screw fixation of the distal tibia. Tunnel tract within the cuboid. Soft tissue swelling surrounding the ankle. IMPRESSION: 1. Interval reduced, internally fixated and grafted comminuted, depressed and intra-articular right calcaneal fracture. Electronically signed by: Rivas Parisi M.D. No Thomas MD IMG XR PROCEDURES Final Resu lt * Type and screen (12/21/2020 7:55 AM CDT) ABO Rh A Positive [facility] Van, indirect Negative [facility] Blood specimen (specimen) 12/21/2020 7:55 AM CDT 12/21/2020 8:42 AM CDT Narrative ENEDELIA WORLEY - 12/21/2020 11:39 AM CDT Has the patient had Daratumumab or Isatuximab in the past 6 months?->Unknown us Naima Stephenson MD LAB BLOOD BANK TEST ORDERABLES Final Result [facility] [place] [address] * (ABNORMAL) Differential, auto (12/20/2020 11:58 PM CDT) Neutrophil abs 7.7(H) 1.7 - 6.5 K/cumm [facility] Imm gran abs 0.2(H) 0.0 - 0.1 K/cumm [facility] Lymphocyte abs 2.5 0.8 - 3.3 K/cumm [facility] Monocyte abs 1.1(H) 0.2 - 0.8 K/cumm [facility] Eosinophil abs 0.1 0.0 - 0.5 K/cumm [facility] Basophil abs 0.1 0.0 - 0.1 K/cumm [facility] Neutrophil pct 65.1 % [facility] Comment: Interpretive Data Percent cell count reference ranges are not reported, since discordance with absolute values may lead to misinterpretation of CBC data. Current Interpretive Data was last revised on 2017. Imm gran pct 2.0 % [facility] Comment: Interpretive Data Percent cell count reference ranges are not reported, since discordance with absolute values may lead to misinterpretation of CBC data. Current Interpretive Data was last revised on 2017. Lymphocyte pct 21.2 % [facility] Comment: Interpretive Data Percent cell count reference ranges are not reported, since discordance with absolute values may lead to misinterpretation of CBC data. Current Interpretive Data was last revised on 2017. Monocyte pct 9.7 % [facility] Comment: Interpretive Data Percent cell count reference ranges are not reported, since discordance with absolute values may lead to misinterpretation of CBC data. Current Interpretive Data was last revised on 2017. Eosinophil pct 1.1 % [facility] Comment: Interpretive Data Percent cell count reference ranges are not reported, since discordance with absolute values may lead to misinterpretation of CBC data. Current Interpretive Data was last revised on 2017. Basophil pct 0.9 % [facility] Comment: Interpretive Data Percent cell count reference ranges are not reported, since discordance with absolute values may lead to misinterpretation of CBC data. Current Interpretive Data was last revised on 2017. Blood specimen (specimen) 12/20/2020 11:58 PM CDT 12/21/2020 12:42 AM CDT Corine Hodgson MD LAB BLOOD ORDERABLES Griselda l Result Performing Organization Address City/[facility] Co de Phone Number [facility] Department [place] [address] * (ABNORMAL) CBC with auto differential (12/20/2020 11:58 PM CDT) WBC 11.8(H) 3.8 - 9.9 K/cumm [facility] Hgb 8.8(L) 13.0 - 17.5 g/dL [facility] Hct 26.0(L) 38.9 - 50.3 % [facility] Plt 709(H) 150 - 400 K/cumm [facility] MPV 8.8(L) 9.1 - 12.3 fL [facility] RBC 2.71(L) 4.30 - 5.80 M/cumm [facility] MCV 95.9 81.3 - 96.4 fL [facility] MCH 32.5 27.1 - 33.3 pg [facility] MCHC 33.8 32.3 - 35.7 g/dL [facility] RDW CV 14.4 11.1 - 14.9 % [facility] RDW SD 50.1(H) 35.7 - 48.1 fL [facility] NRBC abs 0.00 0.00 - 0.01 K/cumm [facility] Blood specimen (specimen) 12/20/2020 11:58 PM CDT 12/21/2020 12:42 AM CDT Corine Hodgson MD LAB BLOOD ORDERABLES Griselda mitchell Result Performing Organization Address [facility]/ZIP Co de Phone Number [facility] Department [place] [address] * (ABNORMAL) Basic metabolic panel (12/20/2020 11:58 PM CDT) Pathologist [facility] Sodium 133(L) 135 - 145 mmol/L [facility] Potassium, pl 4.3 3.3 - 4.9 mmol/L [facility] Chloride 99 97 - 110 mmol/L [facility] CO2 28 22 - 32 mmol/L [facility] Anion gap 6 2 - 15 mmol/L [facility] BUN 15 8 - 25 mg/dL [facility] Creatinine 0.86 0.80 - 1.30 mg/dL [facility] Glucose 119 70 - 199 mg/dL [facility] Comment: Interpretive Data Fasting glucose >/= 126 mg/dl is diagnostic for diabetes. ?? Fasting is defined as no caloric intake for at least 8 hours. Fasting glucose between 100 mg/dl to 125 mg/dl is diagnostic of prediabetes. In a patient with classic symptoms of hyperglycemia or hyperglycemic crisis, a random glucose >/= 200 mg/dl is diagnostic for diabetes. In the absence of unequivocal hyperglycemia, results should be confirmed by repeat testing. The classification and Diagnosis of Diabetes Diabetes Care 2017;40 (Suppl. 1):S11. Current interpretive data was last revised 2017. Calcium 8.3(L) 8.5 - 10.3 mg/dL [facility] Blood specimen (specimen) 12/20/2020 11:58 PM CDT 12/21/2020 12:41 AM CDT us Corine Hodgson MD LAB BLOOD ORDERABLES Griselda l Result [facility] Department [place] [address] * (ABNORMAL) Differential, auto (12/19/2020 10:12 PM CDT) Pathologist [facility] Neutrophil abs 9.1(H) 1.7 - 6.5 K/cumm [facility] Imm gran abs 0.2(H) 0.0 - 0.1 K/cumm [facility] Lymphocyte abs 2.1 0.8 - 3.3 K/cumm [facility] Monocyte abs 0.9(H) 0.2 - 0.8 K/cumm [facility] Eosinophil abs 0.1 0.0 - 0.5 K/cumm [facility] Basophil abs 0.1 0.0 - 0.1 K/cumm [facility] Neutrophil pct 73.0 % [facility] Comment: Interpretive Data Percent cell count reference ranges are not reported, since discordance with absolute values may lead to misinterpretation of CBC data. Current Interpretive Data was last revised on 2017. Imm gran pct 1.4 % [facility] Comment: Interpretive Data Percent cell count reference ranges are not reported, since discordance with absolute values may lead to misinterpretation of CBC data. Current Interpretive Data was last revised on 2017. Lymphocyte pct 17.1 % [facility] Comment: Interpretive Data Percent cell count reference ranges are not reported, since discordance with absolute values may lead to misinterpretation of CBC data. Current Interpretive Data was last revised on 2017. Monocyte pct 7.2 % [facility] Comment: Interpretive Data Percent cell count reference ranges are not reported, since discordance with absolute values may lead to misinterpretation of CBC data. Current Interpretive Data was last revised on 2017. Eosinophil pct 0.6 % [facility] Comment: Interpretive Data Percent cell count reference ranges are not reported, since discordance with absolute values may lead to misinterpretation of CBC data. Current Interpretive Data was last revised on 2017. Basophil pct 0.7 % [facility] Comment: Interpretive Data Percent cell count reference ranges are not reported, since discordance with absolute values may lead to misinterpretation of CBC data. Current Interpretive Data was last revised on 2017. Blood specimen (specimen) 12/19/2020 10:12 PM CDT 12/19/2020 10:57 PM CDT us Caty Zuñiga NP LAB BLOOD ORDERABLES Final R esult [facility] Department [place] [address] * (ABNORMAL) CBC with auto differential (12/19/2020 10:12 PM CDT) [facility] WBC 12.5(H) 3.8 - 9.9 K/cumm [facility] Hgb 9.5(L) 13.0 - 17.5 g/dL [facility] Hct 29.1(L) 38.9 - 50.3 % [facility] Plt 694(H) 150 - 400 K/cumm [facility] MPV 8.9(L) 9.1 - 12.3 fL [facility] RBC 2.95(L) 4.30 - 5.80 M/cumm [facility] MCV 98.6(H) 81.3 - 96.4 fL [facility] MCH 32.2 27.1 - 33.3 pg [facility] MCHC 32.6 32.3 - 35.7 g/dL [facility] RDW CV 14.5 11.1 - 14.9 % [facility] RDW SD 52.5(H) 35.7 - 48.1 fL [facility] NRBC abs 0.00 0.00 - 0.01 K/cumm [facility] Blood specimen (specimen) 12/19/2020 10:12 PM CDT 12/19/2020 10:57 PM CDT Corine Hodgson MD LAB BLOOD ORDERABLES Griselda mitchell Result [facility] Department [place] [address] * Phosphorus (12/19/2020 10:12 PM CDT) [facility] Phosphorus, pl 4.4 2.3 - 4.5 mg/dL [facility] Blood specimen (specimen) 12/19/2020 10:12 PM CDT 12/19/2020 10:56 PM CDT us Corine Anjali Hodgson MD LAB BLOOD ORDERABLES Griselda l Result [facility] Department [place] [address] * Magnesium (12/19/2020 10:12 PM CDT) [facility] Magnesium 2.0 1.4 - 2.5 mg/dL [facility] Blood specimen (specimen) 12/19/2020 10:12 PM CDT 12/19/2020 10:56 PM CDT Corine Hodgson MD LAB BLOOD ORDERABLES Griselda l Result Performing Organization Address [facility] Co de Phone Number [facility] Department [place] [address] * (ABNORMAL) Basic metabolic panel (12/19/2020 10:12 PM CDT) [facility] Sodium 133(L) 135 - 145 mmol/L [facility] Potassium, pl 4.6 3.3 - 4.9 mmol/L [facility] Chloride 101 97 - 110 mmol/L [facility] CO2 27 22 - 32 mmol/L [facility] Anion gap 5 2 - 15 mmol/L [facility] BUN 16 8 - 25 mg/dL [facility] Creatinine 0.82 0.80 - 1.30 mg/dL [facility] Glucose 107 70 - 199 mg/dL [facility] Comment: Interpretive Data Fasting glucose >/= 126 mg/dl is diagnostic for diabetes. ?? Fasting is defined as no caloric intake for at least 8 hours. Fasting glucose between 100 mg/dl to 125 mg/dl is diagnostic of prediabetes. In a patient with classic symptoms of hyperglycemia or hyperglycemic crisis, a random glucose >/= 200 mg/dl is diagnostic for diabetes. In the absence of unequivocal hyperglycemia, results should be confirmed by repeat testing. The classification and Diagnosis of Diabetes Diabetes Care 2017;40 (Suppl. 1):S11. Current interpretive data was last revised 2017. Calcium 8.5 8.5 - 10.3 mg/dL [facility] Blood specimen (specimen) 12/19/2020 10:12 PM CDT 12/19/2020 10:56 PM CDT us Corine Hodgson MD LAB BLOOD ORDERABLES Griselda l Result [facility] Department [place] [address] * XR Ankle Right 2 Views (12/19/2020 4:10 PM CDT) Anatomical Region Laterality Modality Lower Extremities, Ankle Right Compute d Radiography 12/19/2020 4:16 PM CDT Impressions 12/19/2020 4:16 PM CDT 1. Intraoperative radiographs demonstrating new reduction and internal fixation of a comminuted right tibial pilon fracture. 2. Comminuted, central depression type intra-articular fracture of the right calcaneus. Electronically signed by: Duglas Solomon M.D. Narrative 12/19/2020 4:16 PM CDT EXAMINATION: XR ANKLE RIGHT 2 VIEWS HISTORY: Right tibia fracture FINDINGS: AP and lateral intraoperative radiographs of the right ankle are performed on a total of 3 images and compared with studies from 12/10/2020 and 12/09/2020. The comminuted, intra-articular fracture of the distal tibia is reduced and internally fixated with curve anterolateral L plate and screws. The articular surface is congruent. There is a pin tract in the tibia. There is a 3 mm linear metal foreign body in the medial leg soft tissues 18 cm proximal to the ankle joint line. Comminuted, depressed, intra-articular fracture of the calcaneus is partially visualized. Procedure Note Duglas Solomon MD - 12/19/2020 EXAMINATION: XR ANKLE RIGHT 2 VIEWS HISTORY: Right tibia fracture FINDINGS: AP and lateral intraoperative radiographs of the right ankle are performed on a total of 3 images and compared with studies from 12/10/2020 and 12/09/2020. The comminuted, intra-articular fracture of the distal tibia is reduced and internally fixated with curve anterolateral L plate and screws. The articular surface is congruent. There is a pin tract in the tibia. There is a 3 mm linear metal foreign body in the medial leg soft tissues 18 cm proximal to the ankle joint line. Comminuted, depressed, intra-articular fracture of the calcaneus is partially visualized. IMPRESSION: 1. Intraoperative radiographs demonstrating new reduction and internal fixation of a comminuted right tibial pilon fracture. 2. Comminuted, central depression type intra-articular fracture of the right calcaneus. Electronically signed by: Duglas Solomon M.D. No Thomas MD IMG XR PROCEDURES Final Resu lt * FL Fluoroscopy < 1 Hour (12/19/2020 4:10 PM CDT) Narrative [facility] - 12/19/2020 4:10 PM CDT The images from this study are not interpreted by Radiology. ??Please refer to the physician's procedure / OR operative note. No Thomas MD IMG FLUOROSCOPY PROCEDURES F inal Result [facility] * (ABNORMAL) Differential, auto (12/18/2020 11:12 PM CDT) Neutrophil abs 8.5(H) 1.7 - 6.5 K/cumm [facility] Imm gran abs 0.3(H) 0.0 - 0.1 K/cumm [facility] Lymphocyte abs 2.3 0.8 - 3.3 K/cumm [facility] Monocyte abs 1.1(H) 0.2 - 0.8 K/cumm [facility] Eosinophil abs 0.2 0.0 - 0.5 K/cumm [facility] Basophil abs 0.1 0.0 - 0.1 K/cumm [facility] Neutrophil pct 68.4 % [facility] Comment: Interpretive Data Percent cell count reference ranges are not reported, since discordance with absolute values may lead to misinterpretation of CBC data. Current Interpretive Data was last revised on 2017. Imm gran pct 2.7 % [facility] Comment: Interpretive Data Percent cell count reference ranges are not reported, since discordance with absolute values may lead to misinterpretation of CBC data. Current Interpretive Data was last revised on 2017. Lymphocyte pct 18.3 % [facility] Comment: Interpretive Data Percent cell count reference ranges are not reported, since discordance with absolute values may lead to misinterpretation of CBC data. Current Interpretive Data was last revised on 2017. Monocyte pct 8.8 % [facility] Comment: Interpretive Data Percent cell count reference ranges are not reported, since discordance with absolute values may lead to misinterpretation of CBC data. Current Interpretive Data was last revised on 2017. Eosinophil pct 1.2 % [facility] Comment: Interpretive Data Percent cell count reference ranges are not reported, since discordance with absolute values may lead to misinterpretation of CBC data. Current Interpretive Data was last revised on 2017. Basophil pct 0.6 % [facility] Comment: Interpretive Data Percent cell count reference ranges are not reported, since discordance with absolute values may lead to misinterpretation of CBC data. Current Interpretive Data was last revised on 2017. Blood specimen (specimen) 12/18/2020 11:12 PM CDT 12/19/2020 12:25 AM CDT Caty Zuñiga NP LAB BLOOD ORDERABLES Final R esult [facility] [place] [address] * (ABNORMAL) CBC with auto differential (12/18/2020 11:12 PM CDT) WBC 12.5(H) 3.8 - 9.9 K/cumm [facility] Hgb 9.3(L) 13.0 - 17.5 g/dL [facility] Hct 28.3(L) 38.9 - 50.3 % [facility] Plt 629(H) 150 - 400 K/cumm [facility] MPV 9.1 9.1 - 12.3 fL [facility] RBC 2.91(L) 4.30 - 5.80 M/cumm [facility] MCV 97.3(H) 81.3 - 96.4 fL [facility] MCH 32.0 27.1 - 33.3 pg [facility] MCHC 32.9 32.3 - 35.7 g/dL [facility] RDW CV 14.3 11.1 - 14.9 % [facility] RDW SD 49.7(H) 35.7 - 48.1 fL [facility] NRBC abs 0.00 0.00 - 0.01 K/cumm [facility] Blood specimen (specimen) 12/18/2020 11:12 PM CDT 12/19/2020 12:25 AM CDT Corine Hodgson MD LAB BLOOD ORDERABLES Griselda l Result Performing Organization Address City/[facility]/ZIP Co de Phone Number [facility] [place] [address] * Phosphorus (12/18/2020 11:12 PM CDT) Phosphorus, pl 4.2 2.3 - 4.5 mg/dL [facility] Blood specimen (specimen) 12/18/2020 11:12 PM CDT 12/19/2020 12:25 AM CDT Corine Hodgson MD LAB BLOOD ORDERABLES Griselda l Result [facility] [place] [address] * Magnesium (12/18/2020 11:12 PM CDT) Magnesium 2.1 1.4 - 2.5 mg/dL [facility] Blood specimen (specimen) 12/18/2020 11:12 PM CDT 12/19/2020 12:25 AM CDT Corine Hodgson MD LAB BLOOD ORDERABLES Griselda l Result Performing Organization Address City/[facility]/ZIP Co de Phone Number [facility] Department [place] [address] * (ABNORMAL) Basic metabolic panel (12/18/2020 11:12 PM CDT) Pathologist [facility] Sodium 134(L) 135 - 145 mmol/L [facility] Potassium, pl 4.3 3.3 - 4.9 mmol/L [facility] Chloride 102 97 - 110 mmol/L [facility] CO2 27 22 - 32 mmol/L [facility] Anion gap 5 2 - 15 mmol/L [facility] BUN 18 8 - 25 mg/dL [facility] Creatinine 0.88 0.80 - 1.30 mg/dL [facility] Glucose 132 70 - 199 mg/dL [facility] Comment: Interpretive Data Fasting glucose >/= 126 mg/dl is diagnostic for diabetes. ?? Fasting is defined as no caloric intake for at least 8 hours. Fasting glucose between 100 mg/dl to 125 mg/dl is diagnostic of prediabetes. In a patient with classic symptoms of hyperglycemia or hyperglycemic crisis, a random glucose >/= 200 mg/dl is diagnostic for diabetes. In the absence of unequivocal hyperglycemia, results should be confirmed by repeat testing. The classification and Diagnosis of Diabetes Diabetes Care 2017;40 (Suppl. 1):S11. Current interpretive data was last revised 2017. Calcium 8.7 8.5 - 10.3 mg/dL [facility] Blood specimen (specimen) 12/18/2020 11:12 PM CDT 12/19/2020 12:25 AM CDT Corine Hodgson MD LAB BLOOD ORDERABLES Griselda l Result Performing Organization Address [facility]/ZIP Co de Phone Number [facility] Department [place] [address] * (ABNORMAL) Differential, auto (12/18/2020 12:04 AM CDT) Pathologist [facility] Neutrophil abs 7.3(H) 1.7 - 6.5 K/cumm [facility] Imm gran abs 0.4(H) 0.0 - 0.1 K/cumm [facility] Lymphocyte abs 2.4 0.8 - 3.3 K/cumm [facility] Monocyte abs 0.9(H) 0.2 - 0.8 K/cumm [facility] Eosinophil abs 0.2 0.0 - 0.5 K/cumm [facility] Basophil abs 0.1 0.0 - 0.1 K/cumm [facility] Neutrophil pct 64.4 % [facility] Comment: Interpretive Data Percent cell count reference ranges are not reported, since discordance with absolute values may lead to misinterpretation of CBC data. Current Interpretive Data was last revised on 2017. Imm gran pct 3.8 % [facility] Comment: Interpretive Data Percent cell count reference ranges are not reported, since discordance with absolute values may lead to misinterpretation of CBC data. Current Interpretive Data was last revised on 2017. Lymphocyte pct 20.8 % [facility] Comment: Interpretive Data Percent cell count reference ranges are not reported, since discordance with absolute values may lead to misinterpretation of CBC data. Current Interpretive Data was last revised on 2017. Monocyte pct 8.1 % [facility] Comment: Interpretive Data Percent cell count reference ranges are not reported, since discordance with absolute values may lead to misinterpretation of CBC data. Current Interpretive Data was last revised on 2017. Eosinophil pct 2.0 % [facility] Comment: Interpretive Data Percent cell count reference ranges are not reported, since discordance with absolute values may lead to misinterpretation of CBC data. Current Interpretive Data was last revised on 2017. Basophil pct 0.9 % [facility] Comment: Interpretive Data Percent cell count reference ranges are not reported, since discordance with absolute values may lead to misinterpretation of CBC data. Current Interpretive Data was last revised on 2017. Blood specimen (specimen) 12/18/2020 12:04 AM CDT 12/18/2020 1:42 AM CDT Corine Hodgson MD LAB BLOOD ORDERABLES Griselda l Result [facility] [place] [address] * (ABNORMAL) CBC with auto differential (12/18/2020 12:04 AM CDT) WBC 11.3(H) 3.8 - 9.9 K/cumm [facility] Hgb 9.2(L) 13.0 - 17.5 g/dL [facility] Hct 27.9(L) 38.9 - 50.3 % [facility] Plt 572(H) 150 - 400 K/cumm [facility] MPV 9.2 9.1 - 12.3 fL [facility] RBC 2.89(L) 4.30 - 5.80 M/cumm [facility] MCV 96.5(H) 81.3 - 96.4 fL [facility] MCH 31.8 27.1 - 33.3 pg [facility] MCHC 33.0 32.3 - 35.7 g/dL [facility] RDW CV 14.0 11.1 - 14.9 % [facility] RDW SD 49.0(H) 35.7 - 48.1 fL [facility] NRBC abs 0.00 0.00 - 0.01 K/cumm [facility] Blood specimen (specimen) 12/18/2020 12:04 AM CDT 12/18/2020 1:42 AM CDT us Cornie Hodgson MD LAB BLOOD ORDERABLES Griselda l Result [facility] [place] [address] * Phosphorus (12/18/2020 12:04 AM CDT) Phosphorus, pl 3.8 2.3 - 4.5 mg/dL [facility] Blood specimen (specimen) 12/18/2020 12:04 AM CDT 12/18/2020 1:42 AM CDT Corine Hodgson MD LAB BLOOD ORDERABLES Griselda l Result [facility] [place] [address] * Magnesium (12/18/2020 12:04 AM CDT) Pathologist [facility] Magnesium 2.1 1.4 - 2.5 mg/dL [facility] Blood specimen (specimen) 12/18/2020 12:04 AM CDT 12/18/2020 1:42 AM CDT Corine Hodgson MD LAB BLOOD ORDERABLES Griselda l Result Performing Organization Address [facility] [facility]als/[facility] Co de Phone Number [facility] [place] [address] * (ABNORMAL) Basic metabolic panel (12/18/2020 12:04 AM CDT) Pathologist [facility] Sodium 132(L) 135 - 145 mmol/L [facility] Potassium, pl 4.2 3.3 - 4.9 mmol/L [facility] Chloride 99 97 - 110 mmol/L [facility] CO2 26 22 - 32 mmol/L [facility] Anion gap 7 2 - 15 mmol/L [facility] BUN 15 8 - 25 mg/dL [facility] Creatinine 0.73(L) 0.80 - 1.30 mg/dL [facility] Glucose 113 70 - 199 mg/dL [facility] Comment: Interpretive Data Fasting glucose >/= 126 mg/dl is diagnostic for diabetes. ?? Fasting is defined as no caloric intake for at least 8 hours. Fasting glucose between 100 mg/dl to 125 mg/dl is diagnostic of prediabetes. In a patient with classic symptoms of hyperglycemia or hyperglycemic crisis, a random glucose >/= 200 mg/dl is diagnostic for diabetes. In the absence of unequivocal hyperglycemia, results should be confirmed by repeat testing. The classification and Diagnosis of Diabetes Diabetes Care 2017;40 (Suppl. 1):S11. Current interpretive data was last revised 2017. Calcium 8.5 8.5 - 10.3 mg/dL [facility] Blood specimen (specimen) 12/18/2020 12:04 AM CDT 12/18/2020 1:42 AM CDT Corine Hodgson MD LAB BLOOD ORDERABLES Griselda l Result Performing Organization Address City/[facility]/ZIP Co de Phone Number [facility] [place] [address] * Phosphorus (12/16/2020 10:28 PM CDT) Pathologist [facility] Phosphorus, pl 3.1 2.3 - 4.5 mg/dL [facility] Blood specimen (specimen) 12/16/2020 10:28 PM CDT 12/16/2020 11:27 PM CDT Corine Hodgson MD LAB BLOOD ORDERABLES Griselda l Result Performing Organization Address [facility] Co de Phone Number [place] [address] * Magnesium (12/16/2020 10:28 PM CDT) Pathologist [facility] Magnesium 2.0 1.4 - 2.5 mg/dL [facility] Blood specimen (specimen) 12/16/2020 10:28 PM CDT 12/16/2020 11:27 PM CDT Corine Hodgson MD LAB BLOOD ORDERABLES Griselda l Result Performing Organization Address City/[facility] [place] [address] * (ABNORMAL) Basic metabolic panel (12/16/2020 10:28 PM CDT) Pathologist [facility] Sodium 135 135 - 145 mmol/L [facility] Potassium, pl 4.2 3.3 - 4.9 mmol/L [facility] Chloride 101 97 - 110 mmol/L [facility] CO2 29 22 - 32 mmol/L [facility] Anion gap 5 2 - 15 mmol/L [facility] BUN 14 8 - 25 mg/dL [facility] Creatinine 0.74(L) 0.80 - 1.30 mg/dL [facility] Glucose 121 70 - 199 mg/dL [facility] Comment: Interpretive Data Fasting glucose >/= 126 mg/dl is diagnostic for diabetes. ?? Fasting is defined as no caloric intake for at least 8 hours. Fasting glucose between 100 mg/dl to 125 mg/dl is diagnostic of prediabetes. In a patient with classic symptoms of hyperglycemia or hyperglycemic crisis, a random glucose >/= 200 mg/dl is diagnostic for diabetes. In the absence of unequivocal hyperglycemia, results should be confirmed by repeat testing. The classification and Diagnosis of Diabetes Diabetes Care 2017;40 (Suppl. 1):S11. Current interpretive data was last revised 2017. Calcium 8.6 8.5 - 10.3 mg/dL [facility] Blood specimen (specimen) 12/16/2020 10:28 PM CDT 12/16/2020 11:27 PM CDT Corine Hodgson MD LAB BLOOD ORDERABLES Griselda l Result Performing Organization Address City/[facility]/ZIP Co de Phone Number [facility] Department [place] [address] * Phosphorus (12/15/2020 9:45 PM CDT) Pathologist [facility] Phosphorus, pl 3.7 2.3 - 4.5 mg/dL [facility] Blood specimen (specimen) 12/15/2020 9:45 PM CDT 12/15/2020 10:29 PM CDT Corine Hodgson MD LAB BLOOD ORDERABLES Griselda l Result [facility] Department [place] [address] * Magnesium (12/15/2020 9:45 PM CDT) Pathologist [facility] Magnesium 2.1 1.4 - 2.5 mg/dL [facility] Blood specimen (specimen) 12/15/2020 9:45 PM CDT 12/15/2020 10:29 PM CDT Corine Hodgson MD LAB BLOOD ORDERABLES Griselda l Result [facility] [place] [address] * (ABNORMAL) CBC without differential (12/15/2020 9:45 PM CDT) [facility] WBC 10.2(H) 3.8 - 9.9 K/cumm [facility] Hgb 9.0(L) 13.0 - 17.5 g/dL [facility] Hct 26.5(L) 38.9 - 50.3 % [facility] Plt 368 150 - 400 K/cumm [facility] MPV 9.2 9.1 - 12.3 fL [facility] RBC 2.78(L) 4.30 - 5.80 M/cumm [facility] MCV 95.3 81.3 - 96.4 fL [facility] MCH 32.4 27.1 - 33.3 pg [facility] MCHC 34.0 32.3 - 35.7 g/dL [facility] RDW CV 13.7 11.1 - 14.9 % [facility] RDW SD 47.6 35.7 - 48.1 fL [facility] NRBC abs 0.00 0.00 - 0.01 K/cumm [facility] Blood specimen (specimen) 12/15/2020 9:45 PM CDT 12/15/2020 10:30 PM CDT Corine Hodgson MD LAB BLOOD ORDERABLES Griselda l Result Performing Organization Address City/[facility]/ZIP Co de Phone Number [facility] Department [place] [address] * (ABNORMAL) Basic metabolic panel (12/15/2020 9:45 PM CDT) Sodium 130(L) 135 - 145 mmol/L [facility] Potassium, pl 4.2 3.3 - 4.9 mmol/L [facility] Chloride 98 97 - 110 mmol/L [facility] CO2 28 22 - 32 mmol/L [facility] Anion gap 4 2 - 15 mmol/L [facility] BUN 14 8 - 25 mg/dL [facility] Creatinine 0.72(L) 0.80 - 1.30 mg/dL [facility] Glucose 142 70 - 199 mg/dL [facility] Comment: Interpretive Data Fasting glucose >/= 126 mg/dl is diagnostic for diabetes. ?? Fasting is defined as no caloric intake for at least 8 hours. Fasting glucose between 100 mg/dl to 125 mg/dl is diagnostic of prediabetes. In a patient with classic symptoms of hyperglycemia or hyperglycemic crisis, a random glucose >/= 200 mg/dl is diagnostic for diabetes. In the absence of unequivocal hyperglycemia, results should be confirmed by repeat testing. The classification and Diagnosis of Diabetes Diabetes Care 2017;40 (Suppl. 1):S11. Current interpretive data was last revised 2017. Calcium 8.3(L) 8.5 - 10.3 mg/dL [facility] Blood specimen (specimen) 12/15/2020 9:45 PM CDT 12/15/2020 10:29 PM CDT us Corine Hodgson MD LAB BLOOD ORDERABLES Griselda l Result Performing Organization Address [facility] Co de Phone Number [facility] Department [place] [address] * Phosphorus (12/14/2020 8:37 PM CDT) Phosphorus, pl 3.6 2.3 - 4.5 mg/dL [facility] Blood specimen (specimen) 12/14/2020 8:37 PM CDT 12/14/2020 9:46 PM CDT Corine Hodgson MD LAB BLOOD ORDERABLES Griselda l Result Performing Organization Address [facility] Co de Phone Number [facility] [place] [address] * Magnesium (12/14/2020 8:37 PM CDT) [facility] Magnesium 2.0 1.4 - 2.5 mg/dL [facility] Blood specimen (specimen) 12/14/2020 8:37 PM CDT 12/14/2020 9:46 PM CDT Corine Hodgson MD LAB BLOOD ORDERABLES Griselda l Result Performing Organization Address [facility] de Phone Number [facility] [place] [address] * (ABNORMAL) CBC without differential (12/14/2020 8:37 PM CDT) [facility] WBC 8.3 3.8 - 9.9 K/cumm [facility] Hgb 8.5(L) 13.0 - 17.5 g/dL [facility] Hct 25.7(L) 38.9 - 50.3 % [facility] Plt 273 150 - 400 K/cumm [facility] MPV 9.7 9.1 - 12.3 fL [facility] RBC 2.66(L) 4.30 - 5.80 M/cumm [facility] MCV 96.6(H) 81.3 - 96.4 fL [facility] MCH 32.0 27.1 - 33.3 pg [facility] MCHC 33.1 32.3 - 35.7 g/dL [facility] RDW CV 13.6 11.1 - 14.9 % [facility] RDW SD 48.2(H) 35.7 - 48.1 fL [facility] NRBC abs 0.00 0.00 - 0.01 K/cumm [facility] Blood specimen (specimen) 12/14/2020 8:37 PM CDT 12/14/2020 9:47 PM CDT Corine Hodgson MD LAB BLOOD ORDERABLES Griselda l Result [facility] Department [place] [address] * (ABNORMAL) Basic metabolic panel (12/14/2020 8:37 PM CDT) Pathologist [facility] Sodium 132(L) 135 - 145 mmol/L [facility] Potassium, pl 4.1 3.3 - 4.9 mmol/L [facility] Chloride 100 97 - 110 mmol/L [facility] CO2 28 22 - 32 mmol/L [facility] Anion gap 4 2 - 15 mmol/L [facility] BUN 15 8 - 25 mg/dL [facility] Creatinine 0.79(L) 0.80 - 1.30 mg/dL [facility] Glucose 118 70 - 199 mg/dL [facility] Comment: Interpretive Data Fasting glucose >/= 126 mg/dl is diagnostic for diabetes. ?? Fasting is defined as no caloric intake for at least 8 hours. Fasting glucose between 100 mg/dl to 125 mg/dl is diagnostic of prediabetes. In a patient with classic symptoms of hyperglycemia or hyperglycemic crisis, a random glucose >/= 200 mg/dl is diagnostic for diabetes. In the absence of unequivocal hyperglycemia, results should be confirmed by repeat testing. The classification and Diagnosis of Diabetes Diabetes Care 2017;40 (Suppl. 1):S11. Current interpretive data was last revised 2017. Calcium 8.4(L) 8.5 - 10.3 mg/dL [facility] Blood specimen (specimen) 12/14/2020 8:37 PM CDT 12/14/2020 9:46 PM CDT Corine Hodgson MD LAB BLOOD ORDERABLES Griselda l Result Performing Organization Address [facility] Co de Phone Number [facility] [place] [address] * Phosphorus (12/13/2020 8:48 PM CDT) [facility] Phosphorus, pl 3.0 2.3 - 4.5 mg/dL [facility] Blood specimen (specimen) 12/13/2020 8:48 PM CDT 12/13/2020 9:26 PM CDT Corine Hodgson MD LAB BLOOD ORDERABLES Griselda l Result Performing Organization Address [facility] Co de Phone Number [facility] [place] [address] * Magnesium (12/13/2020 8:48 PM CDT) [facility] Magnesium 2.0 1.4 - 2.5 mg/dL [facility] Blood specimen (specimen) 12/13/2020 8:48 PM CDT 12/13/2020 9:26 PM CDT Corine Hodgson MD LAB BLOOD ORDERABLES Griselda l Result Performing Organization Address [facility] Co de Phone Number [facility] [place] [address] * (ABNORMAL) CBC without differential (12/13/2020 8:48 PM CDT) [facility] WBC 9.0 3.8 - 9.9 K/cumm [facility] Hgb 8.4(L) 13.0 - 17.5 g/dL [facility] Hct 24.9(L) 38.9 - 50.3 % [facility] Plt 209 150 - 400 K/cumm [facility] MPV 9.6 9.1 - 12.3 fL [facility] RBC 2.56(L) 4.30 - 5.80 M/cumm [facility] MCV 97.3(H) 81.3 - 96.4 fL [facility] MCH 32.8 27.1 - 33.3 pg [facility] MCHC 33.7 32.3 - 35.7 g/dL [facility] RDW CV 13.8 11.1 - 14.9 % [facility] RDW SD 49.2(H) 35.7 - 48.1 fL [facility] NRBC abs 0.00 0.00 - 0.01 K/cumm [facility] Blood specimen (specimen) 12/13/2020 8:48 PM CDT 12/13/2020 9:26 PM CDT us Corine Hodgson MD LAB BLOOD ORDERABLES Griselda l Result [facility] [place] [address] * (ABNORMAL) Basic metabolic panel (12/13/2020 8:48 PM CDT) Sodium 134(L) 135 - 145 mmol/L [facility] Potassium, pl 4.0 3.3 - 4.9 mmol/L [facility] Chloride 100 97 - 110 mmol/L [facility] CO2 28 22 - 32 mmol/L [facility] Anion gap 6 2 - 15 mmol/L [facility] BUN 13 8 - 25 mg/dL [facility] Creatinine 0.80 0.80 - 1.30 mg/dL [facility] Glucose 129 70 - 199 mg/dL [facility] Comment: Interpretive Data Fasting glucose >/= 126 mg/dl is diagnostic for diabetes. ?? Fasting is defined as no caloric intake for at least 8 hours. Fasting glucose between 100 mg/dl to 125 mg/dl is diagnostic of prediabetes. In a patient with classic symptoms of hyperglycemia or hyperglycemic crisis, a random glucose >/= 200 mg/dl is diagnostic for diabetes. In the absence of unequivocal hyperglycemia, results should be confirmed by repeat testing. The classification and Diagnosis of Diabetes Diabetes Care 2017;40 (Suppl. 1):S11. Current interpretive data was last revised 2017. Calcium 8.3(L) 8.5 - 10.3 mg/dL [facility] Blood specimen (specimen) 12/13/2020 8:48 PM CDT 12/13/2020 9:26 PM CDT Corine Hodgson MD LAB BLOOD ORDERABLES Griselda l Result Performing Organization Address City/[facility] Co de Phone Number [facility] [place] [address] * (ABNORMAL) Phosphorus (12/12/2020 10:53 PM CDT) Phosphorus, pl 1.8(L) 2.3 - 4.5 mg/dL [facility] Blood specimen (specimen) 12/12/2020 10:53 PM CDT 12/12/2020 11:29 PM CDT Corine Hodgson MD LAB BLOOD ORDERABLES Griselda l Result Performing Organization Address [facility] de Phone Number [place] [address] * Magnesium (12/12/2020 10:53 PM CDT) Magnesium 1.9 1.4 - 2.5 mg/dL [facility] Blood specimen (specimen) 12/12/2020 10:53 PM CDT 12/12/2020 11:29 PM CDT Corine Hodgson MD LAB BLOOD ORDERABLES Griselda l Result Performing Organization Address City/[facility] Co de Phone Number [place] [address] * (ABNORMAL) CBC without differential (12/12/2020 10:53 PM CDT) WBC 10.7(H) 3.8 - 9.9 K/cumm [facility] Hgb 8.4(L) 13.0 - 17.5 g/dL [facility] Hct 24.6(L) 38.9 - 50.3 % [facility] Plt 175 150 - 400 K/cumm [facility] MPV 9.4 9.1 - 12.3 fL [facility] RBC 2.54(L) 4.30 - 5.80 M/cumm [facility] MCV 96.9(H) 81.3 - 96.4 fL [facility] MCH 33.1 27.1 - 33.3 pg [facility] MCHC 34.1 32.3 - 35.7 g/dL [facility] RDW CV 13.6 11.1 - 14.9 % [facility] RDW SD 48.5(H) 35.7 - 48.1 fL [facility] NRBC abs 0.00 0.00 - 0.01 K/cumm [facility] Blood specimen (specimen) 12/12/2020 10:53 PM CDT 12/12/2020 11:30 PM CDT us Corine Hodgson MD LAB BLOOD ORDERABLES Griselda mitchell Result [facility] [place] [address] * (ABNORMAL) Basic metabolic panel (12/12/2020 10:53 PM CDT) Sodium 130(L) 135 - 145 mmol/L [facility] Potassium, pl 4.1 3.3 - 4.9 mmol/L [facility] Chloride 97 97 - 110 mmol/L [facility] CO2 26 22 - 32 mmol/L [facility] Anion gap 7 2 - 15 mmol/L [facility] BUN 11 8 - 25 mg/dL [facility] Creatinine 0.82 0.80 - 1.30 mg/dL [facility] Glucose 109 70 - 199 mg/dL [facility] Comment: Interpretive Data Fasting glucose >/= 126 mg/dl is diagnostic for diabetes. ?? Fasting is defined as no caloric intake for at least 8 hours. Fasting glucose between 100 mg/dl to 125 mg/dl is diagnostic of prediabetes. In a patient with classic symptoms of hyperglycemia or hyperglycemic crisis, a random glucose >/= 200 mg/dl is diagnostic for diabetes. In the absence of unequivocal hyperglycemia, results should be confirmed by repeat testing. The classification and Diagnosis of Diabetes Diabetes Care 2017;40 (Suppl. 1):S11. Current interpretive data was last revised 2017. Calcium 8.0(L) 8.5 - 10.3 mg/dL [facility] Blood specimen (specimen) 12/12/2020 10:53 PM CDT 12/12/2020 11:29 PM CDT Corine Hodgson MD LAB BLOOD ORDERABLES Griselda l Result Performing Organization Address [facility] Co de Phone Number [facility] [place] [address] * [place] Fluoroscopy < 1 Hour (12/12/2020 1:59 PM CDT) Narrative [facility] - 12/12/2020 1:59 PM CDT The images from this study are not interpreted by Radiology. ??Please refer to the physician's procedure / OR operative note. No Thomas MD IMG FLUOROSCOPY PROCEDURES F inal Result Performing Organization Address [facility] de Phone Number [email or web address] * Gentamicin level random (12/12/2020 8:36 AM CDT) Gentamicin random <0.3 mcg/mL [facility] Comment: Interpretive Data No reference ranges have been established for random drug levels. Current Interpretive Data was last revised on 2020. Blood specimen (specimen) 12/12/2020 8:36 AM CDT 12/12/2020 8:47 AM CDT Corine Hodgson MD LAB BLOOD ORDERABLES Griselda l Result Performing Organization Address [facility] Co de Phone Number [facility] [place] [address] * (ABNORMAL) Phosphorus (12/11/2020 8:43 PM CDT) [facility] Phosphorus, pl 1.9(L) 2.3 - 4.5 mg/dL [facility] Blood specimen (specimen) 12/11/2020 8:43 PM CDT 12/11/2020 9:34 PM CDT Corine Hodgson MD LAB BLOOD ORDERABLES Griselda l Result Performing Organization Address [facility] Co de Phone Number [facility] [place] [address] * Magnesium (12/11/2020 8:43 PM CDT) [facility] Magnesium 1.7 1.4 - 2.5 mg/dL [facility] Blood specimen (specimen) 12/11/2020 8:43 PM CDT 12/11/2020 9:34 PM CDT Corine Hodgson MD LAB BLOOD ORDERABLES Griselda l Result Performing Organization Address [facility] de Phone Number [facility] [place] [address] * (ABNORMAL) CBC without differential (12/11/2020 8:43 PM CDT) [facility] WBC 12.7(H) 3.8 - 9.9 K/cumm [facility] Hgb 9.3(L) 13.0 - 17.5 g/dL [facility] Hct 27.6(L) 38.9 - 50.3 % [facility] Plt 158 150 - 400 K/cumm [facility] MPV 9.7 9.1 - 12.3 fL [facility] RBC 2.86(L) 4.30 - 5.80 M/cumm [facility] MCV 96.5(H) 81.3 - 96.4 fL [facility] MCH 32.5 27.1 - 33.3 pg [facility] MCHC 33.7 32.3 - 35.7 g/dL [facility] RDW CV 13.5 11.1 - 14.9 % [facility] RDW SD 47.8 35.7 - 48.1 fL [facility] NRBC abs 0.00 0.00 - 0.01 K/cumm [facility] Blood specimen (specimen) 12/11/2020 8:43 PM CDT 12/11/2020 9:35 PM CDT Corine Hodgson MD LAB BLOOD ORDERABLES Griselda mitchell Result [facility] [place] [address] * (ABNORMAL) Basic metabolic panel (12/11/2020 8:43 PM CDT) Sodium 133(L) 135 - 145 mmol/L [facility] Potassium, pl 4.1 3.3 - 4.9 mmol/L [facility] Chloride 102 97 - 110 mmol/L [facility] CO2 27 22 - 32 mmol/L [facility] Anion gap 4 2 - 15 mmol/L [facility] BUN 8 8 - 25 mg/dL [facility] Creatinine 0.92 0.80 - 1.30 mg/dL [facility] Glucose 125 70 - 199 mg/dL [facility] Comment: Interpretive Data Fasting glucose >/= 126 mg/dl is diagnostic for diabetes. ?? Fasting is defined as no caloric intake for at least 8 hours. Fasting glucose between 100 mg/dl to 125 mg/dl is diagnostic of prediabetes. In a patient with classic symptoms of hyperglycemia or hyperglycemic crisis, a random glucose >/= 200 mg/dl is diagnostic for diabetes. In the absence of unequivocal hyperglycemia, results should be confirmed by repeat testing. The classification and Diagnosis of Diabetes Diabetes Care 2017;40 (Suppl. 1):S11. Current interpretive data was last revised 2017. Calcium 8.1(L) 8.5 - 10.3 mg/dL [facility] Blood specimen (specimen) 12/11/2020 8:43 PM CDT 12/11/2020 9:34 PM CDT Corine Hodgson MD LAB BLOOD ORDERABLES Griselda l Result [facility] [place] [address] * Phosphorus (12/10/2020 8:36 PM CDT) Phosphorus, pl 2.3 2.3 - 4.5 mg/dL [facility] Blood specimen (specimen) 12/10/2020 8:36 PM CDT 12/10/2020 9:25 PM CDT Corine Hodgson MD LAB BLOOD ORDERABLES Griselda l Result Performing Organization Address [facility] Co de Phone Number [facility] [place] [address] * Magnesium (12/10/2020 8:36 PM CDT) Magnesium 1.6 1.4 - 2.5 mg/dL [facility] Blood specimen (specimen) 12/10/2020 8:36 PM CDT 12/10/2020 9:25 PM CDT Corine Hodgson MD LAB BLOOD ORDERABLES Griselda l Result Performing Organization Address City/[facility]/ZIP Co de Phone Number [facility] [place], [place] [id number] * (ABNORMAL) CBC without differential (12/10/2020 8:36 PM CDT) WBC 13.0(H) 3.8 - 9.9 K/cumm [facility] Hgb 10.2(L) 13.0 - 17.5 g/dL [facility] 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 Per Yolanda Graf -yulissa- patient had surgery on 12-09-20 Hct 30.4(L) 38.9 - 50.3 % [facility] Plt 204 150 - 400 K/cumm [facility] MPV 10.2 9.1 - 12.3 fL [facility] RBC 3.18(L) 4.30 - 5.80 M/cumm [facility] MCV 95.6 81.3 - 96.4 fL [facility] MCH 32.1 27.1 - 33.3 pg [facility] MCHC 33.6 32.3 - 35.7 g/dL [facility] RDW CV 13.7 11.1 - 14.9 % [facility] RDW SD 48.2(H) 35.7 - 48.1 fL [facility] NRBC abs 0.00 0.00 - 0.01 K/cumm [facility] Blood specimen (specimen) 12/10/2020 8:36 PM CDT 12/10/2020 9:25 PM CDT us Corine Hodgson MD LAB BLOOD ORDERABLES Griselda mitchell Result [facility] [place] [address] * (ABNORMAL) Basic metabolic panel (12/10/2020 8:36 PM CDT) Sodium 132(L) 135 - 145 mmol/L [facility] Potassium, pl 4.8 3.3 - 4.9 mmol/L [facility] Comment:Hemolyzed; Potassium value may be falsely elevated by as much as 0.6-1.0 mmol/L. Suggest redraw and reanalysis. Chloride 104 97 - 110 mmol/L [facility] CO2 27 22 - 32 mmol/L [facility] Anion gap 1(L) 2 - 15 mmol/L [facility] BUN 8 8 - 25 mg/dL [facility] Creatinine 0.90 0.80 - 1.30 mg/dL [facility] Glucose 126 70 - 199 mg/dL [facility] Comment: Interpretive Data Fasting glucose >/= 126 mg/dl is diagnostic for diabetes. ?? Fasting is defined as no caloric intake for at least 8 hours. Fasting glucose between 100 mg/dl to 125 mg/dl is diagnostic of prediabetes. In a patient with classic symptoms of hyperglycemia or hyperglycemic crisis, a random glucose >/= 200 mg/dl is diagnostic for diabetes. In the absence of unequivocal hyperglycemia, results should be confirmed by repeat testing. The classification and Diagnosis of Diabetes Diabetes Care 2017;40 (Suppl. 1):S11. Current interpretive data was last revised 2017. Calcium 8.3(L) 8.5 - 10.3 mg/dL [facility] Blood specimen (specimen) 12/10/2020 8:36 PM CDT 12/10/2020 9:25 PM CDT Corine Hodgson MD LAB BLOOD ORDERABLES Griselda l Result [facility] Department [place] [address] * Check Sample (12/10/2020 8:36 PM CDT) ABO Rh A Positive [facility] OTHER 12/10/2020 8:36 PM CDT 12/10/2020 9:33 PM CDT Corine Hodgson MD LAB BLOOD ORDERABLES Griselda l Result [facility] [place] [place] [address] * CT Maxiliofacial WO Contrast W 3D Recon (12/10/2020 6:47 PM CDT) Anatomical Region Laterality Modality Head and Neck N/A Computed Tomogra phy 12/11/2020 9:12 AM CDT Impressions 12/11/2020 9:12 AM CDT Multiple facial bone fractures, unchanged as described on prior facial bone CT examination. ??There is extension of fracture into the superior aspect of the left temporal mandibular joint laterally. ??No significant widening of the temporomandibular joints identified. ??No mandibular fracture seen. Electronically signed by: Vinh Moreno M.D. Narrative 12/11/2020 9:12 AM CDT EXAMINATION: Computed tomography (CT) of the maxillofacial bones, orbits, and paranasal sinuses without contrast HISTORY: Facial bone fractures, repeat evaluation due to motion artifact on prior study, evaluate for temporomandibular joint extension TECHNIQUE: CT of the maxillofacial bones, orbits, and paranasal sinuses was performed without intravenous contrast according to standard protocol. COMPARISON: CT facial bones from 11/08/2020 FINDINGS: There is a comminuted fracture of the left lateral orbital wall extending into the left greater sphenoid wing, comminuted and displaced fracture of the left side zygomatic arch extending into the left temporomandibular joint, fractures of the anterior and posterior lateral wall of the left maxillary sinus, fracture of the posterior lateral wall of the right maxillary sinus, and fractures of the right pterygoid plates. ??Fracture extends to the left inferior orbital wall. ??Nasal septum is deviated to the left. ??No mandibular fracture is identified. ??Mastoid air cells demonstrate small effusion on the right. ??Multiple dental caries. ??There are several soft tissue swelling along the left greater than on the right. ??No intraconal extension is identified. ??Soft tissue swelling also overlies the left base. ??Blood products noted in the maxillary sinuses. Procedure Note Vinh Moreno MD - 12/11/2020 EXAMINATION: Computed tomography (CT) of the maxillofacial bones, orbits, and paranasal sinuses without contrast HISTORY: Facial bone fractures, repeat evaluation due to motion artifact on prior study, evaluate for temporomandibular joint extension TECHNIQUE: CT of the maxillofacial bones, orbits, and paranasal sinuses was performed without intravenous contrast according to standard protocol. COMPARISON: CT facial bones from 11/08/2020 FINDINGS: There is a comminuted fracture of the left lateral orbital wall extending into the left greater sphenoid wing, comminuted and displaced fracture of the left side zygomatic arch extending into the left temporomandibular joint, fractures of the anterior and posterior lateral wall of the left maxillary sinus, fracture of the posterior lateral wall of the right maxillary sinus, and fractures of the right pterygoid plates. Fracture extends to the left inferior orbital wall. Nasal septum is deviated to the left. No mandibular fracture is identified. Mastoid air cells demonstrate small effusion on the right. Multiple dental caries. There are several soft tissue swelling along the left greater than on the right. No intraconal extension is identified. Soft tissue swelling also overlies the left base. Blood products noted in the maxillary sinuses. IMPRESSION: Multiple facial bone fractures, unchanged as described on prior facial bone CT examination. There is extension of fracture into the superior aspect of the left temporal mandibular joint laterally. No significant widening of the temporomandibular joints identified. No mandibular fracture seen. Electronically signed by: Vinh Moreno M.D. us Corine Hodgson MD IMG CT PROCEDURES Final R esult * CT Foot Right WO Contrast (12/10/2020 1:21 PM CDT) Anatomical Region Laterality Modality Lower Extremities Right Computed Tomog lynn 12/10/2020 8:03 PM CDT Impressions 12/10/2020 8:03 PM CDT 1. ??Comminuted nondisplaced right fibular head and neck fracture. 2. ??Right knee lipohemarthrosis. 3. ??Reduced externally fixated pilon fracture of the distal right tibia with mild widening of the tibiotalar joint. 4. ??Markedly comminuted intra-articular right calcaneus fracture with marked depression along the lateral aspect of the posterior subtalar articulation. ?? 5. ??Right peroneus longus tendon dislocation. Electronically signed by: Sergio Worthy M.D. Narrative 12/10/2020 8:03 PM CDT EXAMINATION: 1. ??CT right leg without contrast. 2. ??CT right ankle without contrast. 3. ??CT right foot without contrast. HISTORY: ??Right leg and ankle fractures, right foot pain FINDINGS: CT examinations of the right leg, foot and ankle are performed. ??Coronal and sagittal reconstructions were made at the scanner and sent to the workstation for review. ??Comparison is made to right foot and ankle radiographs on 12/09/2020. There is a comminuted intra-articular nondisplaced right fibular head and neck fracture. ??The joint spaces of the knee are normal. ??There is a lipohemarthrosis at the knee. There is an external fixator with pins in the tibia and calcaneus for management of a reduced distal tibial intra-articular pilon fracture. There is mild widening of the tibiotalar joint. ??The peroneus longus is dislocated. ?? There is a markedly comminuted intra-articular calcaneus fracture with severe depression of the lateral aspect of the posterior subtalar facet by 2 cm. ??The fracture extends into posterior subtalar facet, middle subtalar facet, anterior subtalar facet and the calcaneocuboid joint. ??The anterior process of the calcaneus is also mildly displaced. There is no fracture of the forefoot and the Lisfranc articulation is normal. ??There is soft tissue swelling about the foot and ankle. Procedure Note Sergio Worthy MD - 12/10/2020 EXAMINATION: 1. CT right leg without contrast. 2. CT right ankle without contrast. 3. CT right foot without contrast. HISTORY: Right leg and ankle fractures, right foot pain FINDINGS: CT examinations of the right leg, foot and ankle are performed. Coronal and sagittal reconstructions were made at the scanner and sent to the workstation for review. Comparison is made to right foot and ankle radiographs on 12/09/2020. There is a comminuted intra-articular nondisplaced right fibular head and neck fracture. The joint spaces of the knee are normal. There is a lipohemarthrosis at the knee. There is an external fixator with pins in the tibia and calcaneus for management of a reduced distal tibial intra-articular pilon fracture. There is mild widening of the tibiotalar joint. The peroneus longus is dislocated. There is a markedly comminuted intra-articular calcaneus fracture with severe depression of the lateral aspect of the posterior subtalar facet by 2 cm. The fracture extends into posterior subtalar facet, middle subtalar facet, anterior subtalar facet and the calcaneocuboid joint. The anterior process of the calcaneus is also mildly displaced. There is no fracture of the forefoot and the Lisfranc articulation is normal. There is soft tissue swelling about the foot and ankle. IMPRESSION: 1. Comminuted nondisplaced right fibular head and neck fracture. 2. Right knee lipohemarthrosis. 3. Reduced externally fixated pilon fracture of the distal right tibia with mild widening of the tibiotalar joint. 4. Markedly comminuted intra-articular right calcaneus fracture with marked depression along the lateral aspect of the posterior subtalar articulation. 5. Right peroneus longus tendon dislocation. Electronically signed by: Sergio Worthy M.D. us Corine Hodgson MD IMG CT PROCEDURES Final R esult * CT Ankle Right WO Contrast (12/10/2020 1:21 PM CDT) Anatomical Region Laterality Modality Ankle Right Computed Tomogra phy 12/10/2020 8:03 PM CDT Impressions 12/10/2020 8:03 PM CDT 1. ??Comminuted nondisplaced right fibular head and neck fracture. 2. ??Right knee lipohemarthrosis. 3. ??Reduced externally fixated pilon fracture of the distal right tibia with mild widening of the tibiotalar joint. 4. ??Markedly comminuted intra-articular right calcaneus fracture with marked depression along the lateral aspect of the posterior subtalar articulation. ?? 5. ??Right peroneus longus tendon dislocation. Electronically signed by: Sergio Worthy M.D. Narrative 12/10/2020 8:03 PM CDT EXAMINATION: 1. ??CT right leg without contrast. 2. ??CT right ankle without contrast. 3. ??CT right foot without contrast. HISTORY: ??Right leg and ankle fractures, right foot pain FINDINGS: CT examinations of the right leg, foot and ankle are performed. ??Coronal and sagittal reconstructions were made at the scanner and sent to the workstation for review. ??Comparison is made to right foot and ankle radiographs on 12/09/2020. There is a comminuted intra-articular nondisplaced right fibular head and neck fracture. ??The joint spaces of the knee are normal. ??There is a lipohemarthrosis at the knee. There is an external fixator with pins in the tibia and calcaneus for management of a reduced distal tibial intra-articular pilon fracture. There is mild widening of the tibiotalar joint. ??The peroneus longus is dislocated. ?? There is a markedly comminuted intra-articular calcaneus fracture with severe depression of the lateral aspect of the posterior subtalar facet by 2 cm. ??The fracture extends into posterior subtalar facet, middle subtalar facet, anterior subtalar facet and the calcaneocuboid joint. ??The anterior process of the calcaneus is also mildly displaced. There is no fracture of the forefoot and the Lisfranc articulation is normal. ??There is soft tissue swelling about the foot and ankle. Procedure Note Sergio Worthy MD - 12/10/2020 EXAMINATION: 1. CT right leg without contrast. 2. CT right ankle without contrast. 3. CT right foot without contrast. HISTORY: Right leg and ankle fractures, right foot pain FINDINGS: CT examinations of the right leg, foot and ankle are performed. Coronal and sagittal reconstructions were made at the scanner and sent to the workstation for review. Comparison is made to right foot and ankle radiographs on 12/09/2020. There is a comminuted intra-articular nondisplaced right fibular head and neck fracture. The joint spaces of the knee are normal. There is a lipohemarthrosis at the knee. There is an external fixator with pins in the tibia and calcaneus for management of a reduced distal tibial intra-articular pilon fracture. There is mild widening of the tibiotalar joint. The peroneus longus is dislocated. There is a markedly comminuted intra-articular calcaneus fracture with severe depression of the lateral aspect of the posterior subtalar facet by 2 cm. The fracture extends into posterior subtalar facet, middle subtalar facet, anterior subtalar facet and the calcaneocuboid joint. The anterior process of the calcaneus is also mildly displaced. There is no fracture of the forefoot and the Lisfranc articulation is normal. There is soft tissue swelling about the foot and ankle. IMPRESSION: 1. Comminuted nondisplaced right fibular head and neck fracture. 2. Right knee lipohemarthrosis. 3. Reduced externally fixated pilon fracture of the distal right tibia with mild widening of the tibiotalar joint. 4. Markedly comminuted intra-articular right calcaneus fracture with marked depression along the lateral aspect of the posterior subtalar articulation. 5. Right peroneus longus tendon dislocation. Electronically signed by: Sergio Worthy M.D. us Corine Hodgson MD IMG CT PROCEDURES Final R esult * CT Tibia Fibula Right WO Contrast (12/10/2020 1:21 PM CDT) Anatomical Region Laterality Modality Lower Leg Right Computed Tomogra phy 12/10/2020 8:03 PM CDT Impressions 12/10/2020 8:03 PM CDT 1. ??Comminuted nondisplaced right fibular head and neck fracture. 2. ??Right knee lipohemarthrosis. 3. ??Reduced externally fixated pilon fracture of the distal right tibia with mild widening of the tibiotalar joint. 4. ??Markedly comminuted intra-articular right calcaneus fracture with marked depression along the lateral aspect of the posterior subtalar articulation. ?? 5. ??Right peroneus longus tendon dislocation. Electronically signed by: Sergio Worthy M.D. Narrative 12/10/2020 8:03 PM CDT EXAMINATION: 1. ??CT right leg without contrast. 2. ??CT right ankle without contrast. 3. ??CT right foot without contrast. HISTORY: ??Right leg and ankle fractures, right foot pain FINDINGS: CT examinations of the right leg, foot and ankle are performed. ??Coronal and sagittal reconstructions were made at the scanner and sent to the workstation for review. ??Comparison is made to right foot and ankle radiographs on 12/09/2020. There is a comminuted intra-articular nondisplaced right fibular head and neck fracture. ??The joint spaces of the knee are normal. ??There is a lipohemarthrosis at the knee. There is an external fixator with pins in the tibia and calcaneus for management of a reduced distal tibial intra-articular pilon fracture. There is mild widening of the tibiotalar joint. ??The peroneus longus is dislocated. ?? There is a markedly comminuted intra-articular calcaneus fracture with severe depression of the lateral aspect of the posterior subtalar facet by 2 cm. ??The fracture extends into posterior subtalar facet, middle subtalar facet, anterior subtalar facet and the calcaneocuboid joint. ??The anterior process of the calcaneus is also mildly displaced. There is no fracture of the forefoot and the Lisfranc articulation is normal. ??There is soft tissue swelling about the foot and ankle. Procedure Note Sergio Worthy MD - 12/10/2020 EXAMINATION: 1. CT right leg without contrast. 2. CT right ankle without contrast. 3. CT right foot without contrast. HISTORY: Right leg and ankle fractures, right foot pain FINDINGS: CT examinations of the right leg, foot and ankle are performed. Coronal and sagittal reconstructions were made at the scanner and sent to the workstation for review. Comparison is made to right foot and ankle radiographs on 12/09/2020. There is a comminuted intra-articular nondisplaced right fibular head and neck fracture. The joint spaces of the knee are normal. There is a lipohemarthrosis at the knee. There is an external fixator with pins in the tibia and calcaneus for management of a reduced distal tibial intra-articular pilon fracture. There is mild widening of the tibiotalar joint. The peroneus longus is dislocated. There is a markedly comminuted intra-articular calcaneus fracture with severe depression of the lateral aspect of the posterior subtalar facet by 2 cm. The fracture extends into posterior subtalar facet, middle subtalar facet, anterior subtalar facet and the calcaneocuboid joint. The anterior process of the calcaneus is also mildly displaced. There is no fracture of the forefoot and the Lisfranc articulation is normal. There is soft tissue swelling about the foot and ankle. IMPRESSION: 1. Comminuted nondisplaced right fibular head and neck fracture. 2. Right knee lipohemarthrosis. 3. Reduced externally fixated pilon fracture of the distal right tibia with mild widening of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 Creatinine 1.16 0.80 - 1.30 mg/dL [facility] Glucose 156 70 - 199 mg/dL [facility] Comment: Interpretive Data Fasting glucose >/= 126 mg/dl is diagnostic for diabetes. ?? Fasting is defined as no caloric intake for at least 8 hours. Fasting glucose between 100 mg/dl to 125 mg/dl is diagnostic of prediabetes. In a patient with classic symptoms of hyperglycemia or hyperglycemic crisis, a random glucose >/= 200 mg/dl is diagnostic for diabetes. In the absence of unequivocal hyperglycemia, results should be confirmed by repeat testing. The classification and Diagnosis of Diabetes Diabetes Care 2017;40 (Suppl. 1):S11. Current interpretive data was last revised 2017. Calcium 8.6 8.5 - 10.3 mg/dL [facility] Bilirubin, total 0.3 0.1 - 1.2 mg/dL [facility] Protein, pl 6.6 6.5 - 8.5 g/dL [facility] Albumin 3.7 3.5 - 5.0 g/dL [facility] Alk phos 69 40 - 130 Units/L [facility] ALT 96(H) 7 - 55 Units/L [facility] AST 143(H) 10 - 50 Units/L [facility] Blood specimen (specimen) 12/09/2020 7:25 PM CDT 12/09/2020 7:34 PM CDT Stephanie Kennedy MD LAB BLOOD ORDERABLES Final Resu lt [facility] [place] [address] * (ABNORMAL) CBC with auto differential (12/09/2020 7:25 PM CDT) WBC 18.9(H) 3.8 - 9.9 K/cumm [facility] Hgb 13.4 13.0 - 17.5 g/dL [facility] Hct 40.4 38.9 - 50.3 % [facility] Plt 279 150 - 400 K/cumm [facility] MPV 9.0(L) 9.1 - 12.3 fL [facility] RBC 4.19(L) 4.30 - 5.80 M/cumm [facility] MCV 96.4 81.3 - 96.4 fL [facility] MCH 32.0 27.1 - 33.3 pg [facility] MCHC 33.2 32.3 - 35.7 g/dL [facility] RDW CV 13.4 11.1 - 14.9 % [facility] RDW SD 48.0 35.7 - 48.1 fL [facility] NRBC abs 0.00 0.00 - 0.01 K/cumm [facility] Blood specimen (specimen) 12/09/2020 7:25 PM CDT 12/09/2020 7:33 PM CDT Stephanie Kennedy MD LAB BLOOD ORDERABLES Final Resu lt [facility] [place] [address] documented in this encounter Visit Diagnoses Diagnosis Closed nondisplaced fracture of posterior wall of left acetabulum (HCC)- Primary Pilon fracture of right tibia, closed, initial encounter Open displaced fracture of body of right calcaneus, initial encounter Laceration of left forearm, initial encounter Closed nondisplaced fracture of posterior wall of left acetabulum, initial encounter ([facility]) Type I or II open displaced pilon fracture of right tibia, initial encounter Open fracture of nasal bone, initial encounter Vitreous hemorrhage of left eye (CMS/HCC) (HCC) Vitreous hemorrhage Closed fracture of neck of right fibula Pilon fracture of right tibia, closed, initial encounter Open displaced fracture of body of right calcaneus Laceration of left forearm documented in this encounter Admitting Diagnoses Diagnosis Pilon fracture of right tibia, closed, initial encounter Open displaced fracture of body of right calcaneus Laceration of left forearm Closed nondisplaced fracture of posterior wall of left acetabulum (HCC) documented in this encounter Administered Medications Inactive Administered Medications - up to 3 most recent administrations Medication Order MAR Action Action Date Dose Rate Site acetaminophen (TYLENOL) tablet 1,000 mg 1,000 mg, oral, Every 6 hours scheduled, First dose on Fri12/10/20 at 0515 Given 12/25/2020 12:14 PM CDT 1,000 mg Given 12/25/2020 5:17 AM CDT 1,000 mg Given 12/24/2020 11:19 PM CDT 1,000 mg acetaminophen (TYLENOL) tablet 1,000 mg 1,000 mg, oral, Once, On 12/19/20 at 1700, For 1 dose, Phase I, When able to tolerate PO if the patient has not received acetaminophen in the last 4 hours., Indications: PainIndications:Pain Given 12/19/2020 4:52 PM CDT 1,000 mg acetaminophen (TYLENOL) tablet 1,000 mg 1,000 mg, oral, Once, On Lilia 12/21/20 at 1115, For 1 dose Given 12/21/2020 11:37 AM CDT 1,000 mg bacitracin zinc 500 unit/gram ointment packet 1 application 1 application (deactivated), topical, 3 times daily, First dose on Fri12/10/20 at 1600, For 3 days, Apply to affected area: other Given 12/13/2020 8:15 AM CDT 1 application (deactivated) Given 12/12/2020 8:38 PM CDT 1 application (deactivat ed) Given 12/12/2020 5:56 PM CDT 1 application (deactivat ed) calcium gluconate 2 g/100 mL in sodium chloride (premix) solution 2 g 2 g, intravenous, Administer over 60 Minutes, Once, On Fri12/13/20 at 0045, For 1 dose, Room temperature only, Indications: hypocalcemiaIndications:hypocalce arun New Bag 12/13/2020 3:02 AM CDT 2 g ceFAZolin (ANCEF) 1 gram/10 mL in sterile water (premix) 1,000 mg 1,000 mg, intravenous, at 200 mL/hr, Administer over 3 Minutes, Every 8 hours, First dose on Fri12/19/20 at 2200, For 2 doses, Beginning 8 hours after pre-op dose., Indications: Prophylaxis, SurgicalIndications:Prophylaxis, Surgical New Bag 12/20/2020 5:06 AM CDT 1,000 mg 200 mL/hr New Bag 12/19/2020 11:22 PM CDT 1,000 mg 200 mL/hr ceFAZolin (ANCEF) 2,000 mg/20 mL in sterile water (premix) 2,000 mg 2,000 mg, intravenous, at 400 mL/hr, Administer over 3 Minutes, Once, On 12/09/20 at 1922, For 1 dose, Indications: Prophylaxis, SurgicalIndications:Prophylaxis, Surgical New Bag 12/09/2020 7:31 PM CDT 2,000 mg 400 mL/hr ceFAZolin (ANCEF) 2,000 mg/20 mL in sterile water (premix) 2,000 mg 2,000 mg, intravenous, at 400 mL/hr, Administer over 3 Minutes, Every 8 hours scheduled, First dose (after last reorder) on Fri12/10/20 at 1600, For 5 days, Indications: Prophylaxis, SurgicalIndications:Prophylaxis, Surgical New Bag 12/15/2020 5:19 PM CDT 2,000 mg 400 mL/hr New Bag 12/15/2020 6:21 AM CDT 2,000 mg 400 mL/hr New Bag 12/14/2020 11:38 PM CDT 2,000 mg 400 mL/hr cyclobenzaprine (FLEXERIL) tablet 10 mg 10 mg, oral, 3 times daily, First dose on [place] 12/10/20 at 1600 Given 12/25/2020 3:26 PM CDT 10 mg Given 12/25/2020 8:16 AM CDT 10 mg Given 12/24/2020 8:15 PM CDT 10 mg dextrose 5% and Lactated Ringer's infusion 125 mL/hr, intravenous, Continuous, Starting on 12/09/20 at 2329 New Bag 12/12/2020 8:38 PM CDT 125 mL/hr 125 mL/hr New Bag 12/12/2020 5:06 AM CDT 125 mL/hr 125 mL/hr New Bag 12/11/2020 4:06 PM CDT 125 mL/hr 125 mL/hr dextrose 5% and sodium chloride 0.45% infusion (premix) 75 mL/hr, intravenous, Continuous, Starting on [place] 12/10/20 at 0515 New Bag 12/10/2020 12:07 PM CDT 75 mL/hr 75 mL/hr droperidoL (INAPSINE) injection 0.625 mg 0.625 mg, intravenous, Administer over 5 Minutes, Once as needed, nausea, Starting on [facility] 12/21/20 at 1039, For 1 dose enoxaparin (LOVENOX) syringe 30 mg 30 mg, subcutaneous, Every 12 hours scheduled, First dose (after last modification) on [place] 12/10/20 at 2100, Indications: Deep Vein Thrombosis Prevention, On hold since Fri12/18/2020 at 2228 until manually unheldIndications:Deep Vein Thrombosis Prevention Given 12/18/2020 9:30 PM CDT 30 mg Left Lower Abdomen Given 12/18/2020 9:11 AM CDT 30 mg Le ft Lower Abdomen Given 12/17/2020 8:20 PM CDT 30 mg Le ft Lower Abdomen enoxaparin (LOVENOX) syringe 30 mg 30 mg, subcutaneous, Every 12 hours scheduled, First dose (after last modification) on Fri12/19/20 at 2100, Indications: Deep Vein Thrombosis PreventionIndications:Deep Vein Thrombosis Prevention Given 12/24/2020 8:15 PM CDT 30 mg Left Lower Abdomen Given 12/24/2020 10:54 AM CDT 30 mg L eft Lower Abdomen Given 12/23/2020 10:26 PM CDT 30 mg L eft Lower Abdomen erythromycin (ILOTYCIN) 5 mg/gram (0.5 %) ophthalmic ointment each eye, 2 times daily, First dose on 12/18/20 at 1245, Apply 1 cm ribbon. Over facial lacerations Given 12/25/2020 8:18 AM CDT 1 application (deactivated) Given 12/24/2020 8:15 PM CDT 1 application (deactivat ed) Given 12/24/2020 10:54 AM CDT 1 application (deactiva corey) fentaNYL (SUBLIMAZE) 50 mcg/mL preservative free injection - ADS Override Pull Starting on 12/09/20 at 204, For 1 dose, Created by cabinet override fentaNYL (SUBLIMAZE) preservative free injection 50 mcg 50 mcg, intravenous, Every 1 hour PRN, 1st line for pain, Starting on 12/09/20 at 2045, For 3 doses Given 12/09/2020 9:28 PM CDT 50 mcg fentaNYL (SUBLIMAZE) preservative free injection 50 mcg 50 mcg, intravenous, Once, On 12/09/20 at 2049, For 1 dose Given 12/09/2020 8:48 PM CDT 50 mcg fentaNYL (SUBLIMAZE) preservative free injection 50 mcg 50 mcg, intravenous, Once, On 12/09/20 at 2156, For 1 dose Given 12/09/2020 9:59 PM CDT 50 mcg fentaNYL (SUBLIMAZE) preservative free injection Code/trauma/sedation medication, Starting on 12/09/20 at 1919 Given 12/09/2020 7:19 PM CDT 50 mcg gabapentin (NEURONTIN) capsule 300 mg 300 mg, oral, 2 times daily, First dose on Fri12/10/20 at 2100 Given 12/25/2020 8:17 AM CDT 300 mg Given 12/24/2020 8:15 PM CDT 300 mg Given 12/24/2020 10:54 AM CDT 300 mg gentamicin (GARAMYCIN) 370 mg in sodium chloride 0.9% 37 mL (10 mg/mL) syringe 370 mg (rounded from 373 mg = 5 mg/kg ? 74.6 kg Adjusted weight), intravenous, Administer over 30 Minutes, Once, On 12/09/20 at 1922, For 1 dose, Indications: Prophylaxis, SurgicalIndications:Prophylaxis, Surgical New Bag 12/09/2020 9:49 PM CDT 370 mg gentamicin (GARAMYCIN) 370 mg in sodium chloride 0.9% 37 mL (10 mg/mL) syringe 370 mg (rounded from 373 mg = 5 mg/kg ? 74.6 kg Adjusted weight), intravenous, Administer over 30 Minutes, Every 24 hours, First dose on 12/10/20 at 1800, For 5 doses, Indications: Bone/Joint InfectionIndications:Bone/Joint Infection New Bag 12/14/2020 6:23 PM CDT 370 mg New Bag 12/13/2020 5:47 PM CDT 370 mg New Bag 12/12/2020 6:50 PM CDT 370 mg HYDROmorphone (DILAUDID) 1 mg/mL injection - ADS Override Pull Starting on Fri12/20/20 at 0622, For 1 dose, Created by cabinet override HYDROmorphone (DILAUDID) injection 0.2 mg 0.2 mg, intravenous, Administer over 2 Minutes, Every 4 hours PRN, breakthrough pain, Starting on Fri12/10/20 at 0433 Given 12/24/2020 10:54 AM CDT 0.2 m g Given 12/24/2020 5:23 AM CDT 0.2 mg Given 12/23/2020 3:47 PM CDT 0.2 mg HYDROmorphone (DILAUDID) injection 0.4 mg 0.4 mg, intravenous, Administer over 2 Minutes, Every 10 min PRN, 2nd line for pain, Starting on Fri12/10/20 at 1111, Phase I, May administer 10 mintes after 2nd dose of 1st line analgesic agent for uncontrolled or increasing pain. Revert to 1st line dose if POSS of 3. Notify Anesthesiologist if total PACU dose reaches 2 mg and pain score 5/10 or more., Indications: PainIndications:Pain Given 12/10/2020 11:54 AM CDT 0.4 mg Given 12/10/2020 11:45 AM CDT 0.4 mg HYDROmorphone (DILAUDID) injection 0.4 mg 0.4 mg, intravenous, Administer over 2 Minutes, Every 10 min PRN, 1st line for pain, Starting on 12/19/20 at 1626, Phase I, Notify Anesthesiologist if total PACU dose reaches 2 mg and pain score 5/10 or more., Indications: PainIndications:Pain Given 12/19/2020 4:55 PM CDT 0.4 mg Given 12/19/2020 4:44 PM CDT 0.4 mg HYDROmorphone (DILAUDID) injection 0.4 mg 0.4 mg, intravenous, Administer over 2 Minutes, Every 15 min PRN, 3rd line for pain, Starting on [place] 12/21/20 at 1038 Given 12/21/2020 11:20 AM CDT 0.4 m g Given 12/21/2020 11:01 AM CDT 0.4 mg Given 12/21/2020 10:45 AM CDT 0.4 mg HYDROmorphone (DILAUDID) injection 0.5 mg 0.5 mg, intravenous, Administer over 2 Minutes, Once, On 12/25/20 at 0545, For 1 dose, Indications: Pain uncontrolled by oral medicationIndications:Pain uncontrolled by oral medication Given 12/25/2020 5:17 AM CDT 0.5 mg HYDROmorphone (DILAUDID) injection 1 mg 1 mg, intravenous, Administer over 2 Minutes, Every 30 min PRN, 1st line for pain, Starting on 12/09/20 at 2259, For 2 doses Given 12/10/2020 5:16 AM CDT 1 mg Given 12/09/2020 11:10 PM CDT 1 mg ioversoL (OPTIRAY 320) intravenous syringe 100 mL 100 mL, intravenous, Once in imaging, contrast, Starting on 12/09/20 at 2051, For 1 dose Given 12/09/2020 8:52 PM CDT 100 mL ketamine (KETALAR) injection 20 mg 20 mg, intravenous, Once, On 12/09/20 at 2233, For 1 dose Given 12/09/2020 10:37 PM CDT 20 mg ketamine (KETALAR) injection 20 mg 20 mg, intravenous, Once, On 12/09/20 at 2251, For 1 dose Given 12/09/2020 10:51 PM CDT 20 mg ketamine (KETALAR) injection 20 mg 20 mg, intravenous, Once, On 12/09/20 at 2313, For 1 dose Given 12/09/2020 11:05 PM CDT 20 mg ketamine (KETALAR) injection 20 mg 20 mg, intravenous, Once, On 12/09/20 at 2313, For 1 dose Given 12/09/2020 11:15 PM CDT 20 mg Lactated Ringer's (LR) bolus 1,000 mL 1,000 mL, intravenous, Once, On 12/09/20 at 2235, For 1 dose New Bag 12/09/2020 10:39 PM CDT 1,000 mL Lactated Ringer's (LR) infusion - ADS Override Pull Starting on Fri12/10/20 at 0718, For 1 dose, Created by cabinet override Lactated Ringer's (LR) infusion 30 mL/hr, intravenous, Continuous, Starting on Fri12/10/20 at 0800, Pre-Op New Bag 12/10/2020 10:14 AM CDT New Bag 12/10/2020 8:12 AM CDT New Bag 12/10/2020 7:23 AM CDT 30 mL/hr 30 mL/hr Lactated Ringer's (LR) infusion 30 mL/hr, intravenous, Continuous, Starting on Fri12/19/20 at 1345, Pre-Op New Bag 12/19/2020 1:20 PM CDT 30 mL/hr 30 mL/hr Lactated Ringer's (LR) infusion 50 mL/hr, intravenous, Continuous, Starting on [place] 12/21/20 at 0745 New Bag 12/21/2020 9:03 AM CDT 50 mL/hr Rate/Dose Change 12/21/2020 7:20 AM CDT 600 mL/ hr New Bag 12/21/2020 7:18 AM CDT 50 mL/hr 50 mL/hr lidocaine (LIDODERM) 5 % patch 1 patch 1 patch, transdermal, Administer over 12 Hours, Daily, First dose on 12/10/20 at 0515, Do not cover the holes on the top side of the patch., Apply to affected area: chest Medication Applied 12/23/2020 9:57 AM CDT 1 patch Other (Comment) Medication Applied 12/19/2020 8:43 AM CDT 1 patch Chest Medication Applied 12/18/2020 9:20 AM CDT 1 patch Chest lidocaine PF (XYLOCAINE) 10 mg/mL (1 %) preservative free injection 200 mg 200 mg (20 mL), infiltration, Once, On 12/09/20 at 2310, For 1 dose Given by Other 12/09/2020 11:15 PM CDT 2 00 mg lidocaine-EPINEPHrine (XYLOCAINE with EPI) 1 %-1:100,000 injection 20 mL 20 mL, infiltration, Once, On 12/09/20 at 2310, For 1 dose, Indications: Administration of Local AnesthesiaIndications:Administratio n of Local Anesthesia Given by Other 12/09/2020 11:15 PM CDT 20 mL magnesium sulfate 2 g/50 mL in water (premix) 2 g 2 g, intravenous, Administer over 60 Minutes, Once, On Fri12/12/20 at 0200, For 1 dose, Indications: hypomagnesemiaIndications:hypomagne semia New Bag 12/12/2020 1:22 AM CDT 2 g magnesium sulfate 2 g/50 mL in water (premix) 2 g 2 g, intravenous, Administer over 60 Minutes, Once, On Fri12/13/20 at 0045, For 1 dose New Bag 12/13/2020 12:29 AM CDT 2 g oxyCODONE (ROXICODONE) tablet 10 mg 10 mg, oral, Every 4 hours PRN, 2nd line for pain, Starting on Fri12/20/20 at 0809, Indications: PainIndications:Pain Given 12/25/2020 3:26 PM CDT 10 mg Given 12/25/2020 4:20 AM CDT 10 mg Given 12/24/2020 10:11 PM CDT 10 mg oxyCODONE (ROXICODONE) tablet 5 mg 5 mg, oral, Every 4 hours PRN, 2nd line for pain, Starting on Fri12/10/20 at 0433, Indications: PainIndications:Pain Given 12/20/2020 2:55 AM CDT 5 mg Given 12/19/2020 10:13 PM CDT 5 mg Given 12/19/2020 8:44 AM CDT 5 mg oxyCODONE (ROXICODONE) tablet 5 mg 5 mg, oral, Once as needed, 1st line for pain, Starting on Fri12/19/20 at 1626, For 1 dose, Phase I, When able to tolerate PO. May repeat in 1 hour if pain is uncontrolled or increasing after 1st dose., Indications: PainIndications:Pain Given 12/19/2020 4:52 PM CDT 5 mg polyethylene glycol (MIRALAX) packet 17 g 17 g, oral, Daily, First dose on Fri12/13/20 at 1115, Indications: constipationIndications:constipation Given 12/24/2020 10:55 AM CDT 17 g Given 12/23/2020 9:56 AM CDT 17 g Given 12/20/2020 8:56 AM CDT 17 g polyvinyl alcohol-povidone (REFRESH CLASSIC) 1.4-0.6 % ophthalmic solution 1 drop 1 drop, each eye, 4 times daily PRN, dry eyes, Starting on Fri12/18/20 at 1202 potassium phosphates 30 mmol in sodium chloride 0.9% 500 mL IVPB 30 mmol, intravenous, at 85 mL/hr, Administer over 6 Hours, Once, On Fri12/13/20 at 0045, For 1 dose, For PERIPHERAL line administration Each 1 mmol of phosphorus ordered contains ~1.5 mEq of potassium. New Bag 12/13/2020 3:02 AM CDT 30 mmol 85 mL/hr senna-docusate (PERICOLACE) 8.6-50 mg per tablet 1 tablet 1 tablet, oral, 2 times daily, First dose on Fri12/10/20 at 2100 Given 12/13/2020 8:16 AM CDT 1 tablet Given 12/12/2020 8:38 PM CDT 1 tablet Given 12/12/2020 8:00 AM CDT 1 tablet senna-docusate (PERICOLACE) 8.6-50 mg per tablet 2 tablet 2 tablet, oral, 2 times daily, First dose (after last modification) on Fri12/13/20 at 2100 Given 12/25/2020 8:17 AM CDT 2 tablets Given 12/24/2020 8:15 PM CDT 2 tablets Given 12/24/2020 10:55 AM CDT 2 tablets sodium chloride 0.9% flush 0.5-20 mL 0.5-20 mL, intra-catheter, Every 8 hours scheduled, First dose on Fri12/10/20 at 0600, Flush volume based on line type and size. Given 12/25/2020 5:20 AM CDT 10 mL Given 12/24/2020 8:15 PM CDT 10 mL Given 12/24/2020 12:54 PM CDT 10 mL sodium chloride 0.9% flush 0.5-20 mL 0.5-20 mL, intra-catheter, As needed, line care, Starting on Fri12/10/20 at 0433, Flush volume based on line type and size. Flush before and after each use. Given 12/19/2020 7:54 PM CDT 10 mL sodium chloride 0.9% infusion 125 mL/hr, intravenous, Continuous, Starting on Fri12/13/20 at 0045 New Bag 12/13/2020 12:29 AM CDT 125 mL/hr 125 mL/hr white petrolatum 42 % ointment topical, 3 times daily, First dose on Fri12/13/20 at 0900, For 11 days, Apply to affected area: other, Indications: skin irritationIndications:skin irritation Given 12/23/2020 10:29 PM CDT Given 12/23/2020 4:00 PM CDT Given 12/22/2020 10:07 PM CDT documented in this encounter Active and Recently Administered Medications Times are shown in CDT. Scheduled Medication Order 12/23/2020 12/24/2020 12/25/2020 acetaminophen (TYLENOL) tablet 1,000 mg 1,000 mg, oral, Every 6 hours scheduled, First dose on Fri12/10/20 at 0515 0244 (Not Given - Provider: Allegra Watson RN - Reason: Other)0615 (Given - Provider: Allegra Watson RN)1421 (Given - Provider: Ivan Lynn, YULISSA)1830 (Given - Provider: Ivan Lynn, YULISSA) 0015 (Given - Provider: Radha Ray, YULISSA)0523 (Given - Provider: Radha Ray, YULISSA)1253 (Given - Provider: Jolie Arredondo RN)1658 (Given - Provider: Jolie Arredondo, YULISSA)2319 (Given - Provider: Radha Ray, YULISSA) 0517 (Given - Provider: Radha Ray, YULISSA)1214 (Given - Provider: Noris Rachel, YULISSA) cyclobenzaprine (FLEXERIL) tablet 10 mg 10 mg, oral, 3 times daily, First dose on Fri12/10/20 at 1600 0957 (Given - Provider: Ivan Lynn, RN)1547 (Given - Provider: Ivan Lynn RN)2227 (Given - Provider: Radha Ray, YULISSA) 1055 (Given - Provider: Jolie Arredondo, YULISSA)1659 (Given - Provider: Jolie Arredondo, YULISSA)2014 (Given - Provider: Radha Ray RN) 0816 (Given - Provider: Noris Rachel, YULISSA)1526 (Given - Provider: Noris Rachel, RN) enoxaparin (LOVENOX) syringe 30 mg 30 mg, subcutaneous, Every 12 hours scheduled, First dose (after last modification) on Fri12/19/20 at 2100, Indications: Deep Vein Thrombosis Prevention 0956 (Given - Provider: Ivan Lynn, YULISSA)222 (Given - Provider: Radha Ray, YULISSA) 105 (Given - Provider: Jolie Arredondo, YULISSA)2014 (Given - Provider: Radha Ray, YULISSA) 0817 (Not Given - Provider: Noris Rachel, YULISSA - Reason: Patient/family refused) erythromycin (ILOTYCIN) 5 mg/gram (0.5 %) ophthalmic ointment each eye, 2 times daily, First dose on Fri12/18/20 at 1245, Apply 1 cm ribbon. Over facial lacerations 0957 (Given - Provider: Ivan Lynn, YULISSA)2226 (Given - Provider: Radha Ray RN) 105 (Given - Provider: Jolie Arredondo, YULISSA)2014 (Given - Provider: Radha Ray, YULISSA) 0818 (Given - Provider: Noris Rachel, YULISSA) gabapentin (NEURONTIN) capsule 300 mg 300 mg, oral, 2 times daily, First dose on Fri12/10/20 at 2100 0957 (Given - Provider: Ivan Lynn, YULISSA)2226 (Given - Provider: Radha Ray RN) 105 (Given - Provider: Jolie Arredondo, YULISSA)2014 (Given - Provider: Radha Ray, YULISSA) 0817 (Given - Provider: Noris Rachel, YULISSA) HYDROmorphone (DILAUDID) injection 0.5 mg (COMPLETED) 0.5 mg, intravenous, Administer over 2 Minutes, Once, On Fri12/25/20 at 0545, For 1 dose, Indications: Pain uncontrolled by oral medication 0517 (Given - Provider: Radha Ray RN) lidocaine (LIDODERM) 5 % patch 1 patch 1 patch, transdermal, Administer over 12 Hours, Daily, First dose on Fri12/10/20 at 0515, Do not cover the holes on the top side of the patch., Apply to affected area: chest 0957 (Medication Applied - Provider: Ivan Lynn, YULISSA)2228 (Medication Removed - Provider: Radha Ray, YULISSA) 105 (Not Given - Provider: Jolie Arredondo, YULISSA - Reason: Patient/family refused) 0818 (Not Given - Provider: Noris Rachel, YULISSA - Reason: Patient/family refused) polyethylene glycol (MIRALAX) packet 17 g 17 g, oral, Daily, First dose on Fri12/13/20 at 1115, Indications: constipation 0956 (Given - Provider: Ivan Lynn, YULISSA) 105 (Given - Provider: Jolie Arredondo, YULISSA) 0818 (Not Given - Provider: Noris Rachel, YULISSA - Reason: Patient/family refused) senna-docusate (PERICOLACE) 8.6-50 mg per tablet 2 tablet 2 tablet, oral, 2 times daily, First dose (after last modification) on Fri12/13/20 at 2100 0957 (Given - Provider: Ivan Lynn, YULISSA)2226 (Given - Provider: Radha Ray RN) 1054 (Given - Provider: Jolie Arredondo, YULISSA)2014 (Given - Provider: Radha Ray RN) 0817 (Given - Provider: Noris Rachel, RN) sodium chloride 0.9% flush 0.5-20 mL 0.5-20 mL, intra-catheter, Every 8 hours scheduled, First dose on 12/10/20 at 0600, Flush volume based on line type and size. 0616 (Given - Provider: Allegra Watson, RN)1548 (Given - Provider: Ivan Lynn, YULISSA)2229 (Given - Provider: Radha Ray, YULISSA) 0525 (Given - Provider: Radha Ray, YULISSA)1254 (Given - Provider: Jolie Arredondo, YULISSA)2014 (Given - Provider: Radha Ray, YULISSA) 05 (Given - Provider: Radha Ray, RN)1427 (Not Given - Provider: Noris Rachel, RN - Reason: Loss of IV access) white petrolatum 42 % ointment () topical, 3 times daily, First dose on Fri12/13/20 at 0900, For 11 days, Apply to affected area: other, Indications: skin irritation 1046 (Not Given - Provider: Ivan Lynn, YULISSA - Reason: Other)1600 (Given - Provider: Ivan Lynn, YULISSA)2229 (Given - Provider: Radha Ray, YULISSA) PRN Medication Order 12/23/2020 12/24/2020 12/25/2020 droperidoL (INAPSINE) injection 0.625 mg 0.625 mg, intravenous, Administer over 5 Minutes, Once as needed, nausea, Starting on [place] 12/21/20 at 1039, For 1 dose HYDROmorphone (DILAUDID) injection 0.2 mg (CANCELED) 0.2 mg, intravenous, Administer over 2 Minutes, Every 4 hours PRN, breakthrough pain, Starting on 12/10/20 at 0433 0334 (Given - Provider: Allegra Watson, RN)0956 (Given - Provider: Ivan Lynn, RN)1547 (Given - Provider: Ivan Lynn, RN) 0523 (Given - Provider: Radha Ray RN)1054 (Given - Provider: Jolie Arredondo, YULISSA) oxyCODONE (ROXICODONE) tablet 10 mg 10 mg, oral, Every 4 hours PRN, 2nd line for pain, Starting on Fri12/20/20 at 0809, Indications: Pain 0615 (Given - Provider: Allegra Watson, RN)1421 (Given - Provider: Ivan Lynn, RN)1829 (Given - Provider: Ivan Lynn, RN)2229 (Given - Provider: Radha Ray, YULISSA) 0356 (Given - Provider: Radha Ray RN)0806 (Given - Provider: Kelsey Aiken, YULISSA)1253 (Given - Provider: Jolie Arredondo RN)1658 (Given - Provider: Jolie Arredondo RN)2211 (Given - Provider: Radha Ray, YULISSA) 0420 (Given - Provider: Radha Ray, YULISSA)1526 (Given - Provider: Noris Rachel RN) polyvinyl alcohol-povidone (REFRESH CLASSIC) 1.4-0.6 % ophthalmic solution 1 drop 1 drop, each eye, 4 times daily PRN, dry eyes, Starting on Fri12/18/20 at 1202 sodium chloride 0.9% flush 0.5-20 mL 0.5-20 mL, intra-catheter, As needed, line care, Starting on Fri12/10/20 at 0433, Flush volume based on line type and size. Flush before and after each use. documented in this encounter Orders Medications Ordered That Mynor ht Not Have Been Administered Count Last Ordered Date First Ordered Date diphenhydrAMINE (BENADRYL) i njection 12.5 mg 4 12/21/2020 12/10/2020 droperidoL (INAPSINE) injection 0.625 mg 1 12/21/2020 fentaNYL (SUBLIMAZE) preserv ative free injection 50 mcg 4 12/21/2020 12/19/2020 meperidine (DEMEROL) preserv ative free injection 12.5 mg 3 12/21/2020 12/10/2020 naloxone (NARCAN) 0.4 mg/mL injection 0.04-0.4 mg 4 12/21/2020 12/10/2020 oxyCODONE (ROXICODONE) tablet 5 mg 1 2020 sodium chloride 0.9% irrigation 5 1 12/10/2020 sterile water irrigation 3 12/21/2020 haloperidol (HALDOL) injection 1 mg 1 12/19 hydrALAZINE (APRESOLINE) injection 5 mg 3 0 12/19/2020 12/10/2020 labetaloL (NORMODYNE,TRANDAT E) injection 5 mg 3 12/19/2020 12/10/2020 prochlorperazine (COMPAZINE) injection 10 mg 1 12/19/2020 sodium chloride 0.9% flush 0.5-20 mL 1 12/01 docusate with cottonseed oil enema 2 202012/17/2020 polyvinyl alcohol-povidone ( REFRESH CLASSIC) 1.4-0.6 % ophthalmic solution 1 drop 1 12/18/2020 acetaminophen (TYLENOL) tablet 1,000 mg 2 0 12/12/2020 12/10/2020 HYDROmorphone (DILAUDID) injection 0.2 mg 2 12/12/2020 12/10/2020 HYDROmorphone (DILAUDID) injection 0.4 mg 1 12/12/2020 ondansetron (ZOFRAN) injection 4 mg 2 12/1212/10/2020 enoxaparin (LOVENOX) syringe 40 mg 1 2020 Lab Orders Without Results Count Last Ordered D ate First Ordered Date POCT GLUCOSE DEVICE 1 12/09/2020 General Supply Count Last Ordered Date First Or dered Date COMMODE 1 12/25/2020 LIFT 1 12/25/2020 SLIDE BOARD 1 12/25/2020 WHEELCHAIR--MANUAL 1 12/25/2020 Diet Count Last Ordered Date First Orde red Date ADULT DISCHARGE DIET 1 12/25/2020 Nursing Count Last Ordered Date First Orde red Date DISCHARGE ACTIVITY 1 12/25/2020 DISCHARGE CALL PROVIDER 6 12/25/2020 DISCHARGE DRESSING 2 12/25/2020 FOLLOW UP WITH DEPARTMENT 2 12/25/2020 OTHER FOLLOW UP 1 12/25/2020 PATIENT MAY SHOWER 1 12/25/2020 WEIGHT BEARING STATUS 1 12/25/2020 NURSING COMMUNICATION 1 12/10/2020 WEIGH PATIENT 1 12/10/2020 Consult Count Last Ordered Date First Orde red Date CONSULT TO CHEMICAL DEPENDENCY 1 12/12/2020 IP CONSULT TO ENT 1 12/09/2020 IP CONSULT TO OPHTHALMOLOGY 1 12/09/2020 IP CONSULT TO ORTHOPEDIC SURGERY 1 12/10/19 CORE MEASURES Count Last Ordered Date First Ord ered Date REASON FOR NO VTE PROPHYLAXIS AT ADMISSION 1 12/19/2020 REASON FOR NO VTE PROPHYLAXI S - HOSPITAL ADMISSION - MEDICATIONS 1 12/10/2020 Case Request Count Last Ordered Date First Orde red Date CASE REQUEST OPERATING ROOM 1 12/09/2020 ADT Patient Update Count Last Ordered Date Firs t Ordered Date ED IP DECISION TO ADMIT 1 12/10/2020 documented in this encounter Care Teams [employer] Relationship Specialty Start Date End Date Unknown, Notinfile PCP - General 12/09/20 12/24/20 Unknown, Notinfile PCP - General 12/25/20 02/27/21 No, Physician 12/09/20 documented as of this encounter
--- OUTSIDE RECORDS SUMMARY | 2024-09-11 03:21 | XMS_ITS | Encounter Summary ---
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 Name Role Phone Unknown, Notinfile Primary Care Provider Unavail able No, Physician Unavailable Encounter Details Date Type Department Care Team (Late st Contact Info) Description 12/21/2020 7:20 AM CDT Anesthesia Event [facility] Operating Room [address] [place] [address] Selvin Busby MD [address] [place] [address] Daija Bronson MD [address] [place] [address] Anesthesia Record Procedure Summary Procedure Name Responsible Anesthesiologist Anesthesia Start Time Anesthesia Stop Time OPEN REDUCTION INTERNAL FIXATION - CALCANEOUS FRACTURE (Right: Foot) Selvin Busby MD 12/21/20 0720 12/21/20 1034 Events Date Time Event Comment 12/21/2020 0720 An Start 0725 In Room 0725 An Start Data 0742 An Induction The patient was reevaluated immediately before moderate or deep sedation use and before anesthesia induction. 0744 An Intubation 0801 Anesthesia Ready 0825 Proc Start 0826 Incision Start 1017 Proc Fin 1022 An Extubation 1022 an stop data 1026 Out of Room 1034 Handoff to RN I completed my handoff [...] disposition at the time of handoff: PACU 1034 An Stop Meds Name Total midazolam PF 4 mg lidocaine (cardiac) syringe 2 % 60 mg propofol 150 mg succinylcholine 60 mg phenylephrine 100 mcg/mL 600 mcg phenylephrine infusion (100 mcg/mL) 8.91 mg methadone 10 mg/mL 20 mg vecuronium 6 mg ceFAZolin 2,000 mg calcium chloride 2 g Lactated Ringer's (LR) infusion 0 mL * Agents Name O2% N2O O2 N2O Air Sevoflurane Inspired Sevoflurane * Blood No blood administrations on file. Lines, Drains, and Airways Type Details Placement Removal RETIRED Surgical Site 12/10/20; 1047; Le ft; Arm; 08/03/24 (Retired LDA, Removed/Completed by [facility] with LDA Utility); 1213 (Retired LDA, Removed/Completed by [facility] with LDA Utility) 12/10/20 1047 by Vj Leung RN 08/03/24 1213 by Discharge Provider, Automatic RETIRED Surgical Site 12/10/20; 1047; Bilateral; Leg; external fix left legwound closure right thigh; 12/26/20 12/10/20 1047 by Vj Leung RN 12/26/20 0000 by Blanquita Kay RN RETIRED Surgical Site 12/10/20; 1115; Le ft, Posterior; Thigh; Surgical Site; 08/03/24 (Retired LDA, Removed/Completed by [facility] with LDA Utility); 1213 (Retired LDA, Removed/Completed by [facility] with LDA Utility) 12/10/20 1115 by Priscilla Chanel RN 08/03/24 1213 by Discharge Provider, Automatic [facility] 12/10/20; 1115; Right; Hand; Index finger; 08/03/24 (Retired LDA, Removed/Completed by [facility] with LDA Utility); 1213 (Retired LDA, Removed/Completed by [facility] with LDA Utility) 12/10/20 1115 by Priscilla Chanel RN 08/03/24 1213 by Discharge Provider, Automatic RETIRED Surgical Site 12/12/20; 1319; Le ft; Foot; 08/03/24 (Retired LDA, Removed/Completed by [facility] with LDA Utility); 1213 (Retired LDA, Removed/Completed by [facility] with LDA Utility) 12/12/20 1319 by Charline Mccoy 08/03/24 1213 by Discharge Provider, Automatic Peripheral IV Placement Date: 12/18/20; Placement Time: 1237; Catheter Size: 20 G; Orientation: Left; Location: Antecubital; Site Prep: Alcohol, Chlorhexidine; Inserted by: simón zayas RN; Insertion Attempts: 1; Removal Date: 12/25/20; Removal Time: 1235 12/18/20 1237 by Deborah Oneal RN 12/25/20 1235 by Noris Rachel RN RETIRED Surgical Site 12/19/20; 1452; Right; Leg; 08/03/24 (Retired LDA, Removed/Completed by [facility] with LDA Utility); 1213 (Retired LDA, Removed/Completed by [facility] with LDA Utility) 12/19/20 1452 by Corine Gray RN 08/03/24 1213 by Discharge Provider, Automatic RETIRED Surgical Site 12/21/20; Yes; Rig ht; Ankle/malleolus; 08/03/24 (Retired LDA, Removed/Completed by [facility] with LDA Utility); 1213 (Retired LDA, Removed/Completed by [facility] with LDA Utility) 12/21/20 0000 by Stephie Raymundo RN 08/03/24 1213 by Discharge Provider, Automatic Peripheral IV Placement Date: 12/21/20; Placement Time: 0800; Catheter Size: 18 G; Orientation: Right; Location: Hand; Removal Date: 12/25/20; Removal Time: 1235 12/21/20 0800 by Earline Agudelo RN 12/25/20 1235 by Noris Rachel RN ETT Placement Date: 12/21/20; Placement Time: 0824 (created via procedure documentation); Mask Ventilation: 1; Technique: Direct laryngoscopy; Type: ETT - single; Single Lumen Tube Size: 8 mm; Cuffed: Yes; Laryngoscope: Sofía; Blade Size: 4; Location: Oral; Grade View: Grade IIb; Insertion Attempts: 1; Placement Verification: Auscultation; Removal Date: 12/21/20; Removal Time: 1022 12/21/20 0824 by Krishna Robledo III, CRNA 12/21/20 1022 by Krishna Robledo III, HONG RETIRED Negative Pressure Wound Therapy 12/21/20; 1001; Dr. thomas; Surgical incision; Right; Ankle/malleolus; 12/25/20; 0635 12/21/20 1001 by Stephie Raymundo, YULISSA 12/25/20 0635 by Noris Rachel RN documented in this encounter Social History Tobacco [...] of this encounter OR Notes * Anesthesia Preprocedure Evaluation - Selvin Busby MD - 12/21/2020 11:44 AM CDT Anesthesia Evaluation Marco A Deluna is a 50 y.o. male Procedure(s): OPEN REDUCTION INTERNAL FIXATION - CALCANEOUS FRACTURE Pre-Op Diagnosis Codes: * Pilon fracture of right tibia, closed, initial encounter [S82.871A] * Open displaced fracture of body of right calcaneus, initial encounter [S92.011B] * Laceration of left forearm, initial encounter [S51.812A] Patient Active Problem List Diagnosis ??? Pilon fracture of right tibia, closed, initial encounter ??? Open displaced fracture of body of right calcaneus ??? Laceration of left forearm ??? Closed nondisplaced fracture of posterior wall of left acetabulum (CMS/HCC) History reviewed. No pertinent past medical history. No past surgical history on file. No Known Allergies No medications reported. Current Facility-Administered Medications: ??? [MAR Hold] acetaminophen (TYLENOL) tablet 1,000 mg, 1,000 mg, oral, Q6H MARILUZ, 1,000 mg at 12/21/20 0540 ??? [OCT Hold] cyclobenzaprine (FLEXERIL) tablet 10 mg, 10 mg, oral, TID, 10 mg at 12/20/202115 ??? diphenhydrAMINE (BENADRYL) injection 12.5 mg, 12.5 mg, intravenous, Q15 Min PRN ??? droperidoL (INAPSINE) injection 0.625 mg, 0.625 mg, intravenous, Once PRN ??? [Held by Provider] enoxaparin (LOVENOX) syringe 30 mg, 30 mg, subcutaneous, Q12H MARILUZ, 30 mg at 12/20/20 0855 ??? [OCT Hold] erythromycin (ILOTYCIN) 5 mg/gram (0.5 %) ophthalmic ointment, , each eye, BID, 1 application at 12/20/202115 ??? fentaNYL (SUBLIMAZE) preservative free injection 50 mcg, 50 mcg, intravenous, Q15 Min PRN ??? fentaNYL (SUBLIMAZE) preservative free injection 50 mcg, 50 mcg, intravenous, Once PRN ??? fentaNYL (SUBLIMAZE) preservative free injection 50 mcg, 50 mcg, intravenous, Once PRN ??? [OCT Hold] gabapentin (NEURONTIN) capsule 300 mg, 300 mg, oral, BID, 300 mg at 12/20/202115 ??? [OCT Hold] HYDROmorphone (DILAUDID) injection 0.2 mg, 0.2 mg, intravenous, Q4H PRN, 0.2 mg at 12/20/201942 ??? HYDROmorphone (DILAUDID) injection 0.4 mg, 0.4 mg, intravenous, Q15 Min PRN, 0.4 mg at 120 ??? [OCT Hold] lidocaine (LIDODERM) 5 % patch 1 patch, 1 patch, transdermal, Daily, Stopped at 12/19/201954 ??? meperidine (DEMEROL) preservative free injection 12.5 mg, 12.5 mg, intravenous, Q10 Min PRN ??? naloxone (NARCAN) 0.4 mg/mL injection 0.04-0.4 mg, 0.04-0.4 mg, intravenous, Once PRN ??? [OCT Hold] oxyCODONE (ROXICODONE) tablet 10 mg, 10 mg, oral, Q4H PRN, 10 mg at 12/20/202115 ??? oxyCODONE (ROXICODONE) tablet 5 mg, 5 mg, oral, Once PRN ??? [MAR Hold] polyethylene glycol (MIRALAX) packet 17 g, 17 g, oral, Daily, 17 g at 12/20/20 0856 ??? [MAR Hold] polyvinyl alcohol-povidone (REFRESH CLASSIC) 1.4-0.6 % ophthalmic solution 1 drop, 1drop, each eye, QID PRN ??? [MAR Hold] senna-docusate (PERICOLACE) 8.6-50 mg per tablet 2 tablet, 2 tablet, oral, BID, 2 tablet at 12/20/202115 ??? [MAR Hold] sodium chloride 0.9% flush 0.5-20 mL, 0.5-20 mL, intra-catheter, Q8H MARILUZ, 10 mL at 12/20/202115 ??? [MAR Hold] sodium chloride 0.9% flush 0.5-20 mL, 0.5-20 mL, intra-catheter, PRN, 10 mL at 12/19/201953 ??? [OCT Hold] white petrolatum 42 % ointment, , topical, TID, Given at 12/20/202116 Social History Tobacco Use Smoking Status Never Smoker Smokeless Tobacco Never Used Substance and Sexual Activity Alcohol Use Yes Substance and Sexual Activity Drug Use Yes ??? Types: Marijuana No family history on file. Vitals: 12/21/20 1040 12/21/20 1050 12/21/20 1100 BP: 104/69 99/64 107/71 Pulse: 110 106 100 Resp: 18 12 18 Temp: SpO2: 91% 93% 94% PT: 12/09/2020: 12.4 sec INR: 12/09/2020: 1.1 APTT: 12/09/2020: 26 sec* Hgb A1C: No results found for requested labs within last 720 hours. CBC RBC: 12/20/2020: 2.71 M/cumm* RDW: No results found for requested labs within last 720 hours. MCHC: 12/20/2020: 33.8 g/dL MCH: 12/20/2020: 32.5 pg MCV: 12/20/2020: 95.9 fL Hct: 12/20/2020: 26.0 %* Hgb: 12/20/2020: 8.8 g/dL* WBC: 12/20/2020: 11.8 K/cumm* MPV: 12/20/2020: 8.8 fL* Platelets: 12/20/2020: 709 K/cumm* RDW CV: 12/20/2020: 14.4 % RDW Sd: 12/20/2020: 50.1 fL* BMP Glucose: 12/20/2020: 119 mg/dL Calcium: 12/20/2020: 8.3 mg/dL* Sodium: 12/20/2020: 133 mmol/L* Potassium: 12/20/2020: 4.3 mmol/L CO2: 12/20/2020: 28 mmol/L Chloride: 12/20/2020: 99 mmol/L BUN: 12/20/2020: 15 mg/dL Creatinine: 12/20/2020: 0.86 mg/dL STOP-Bang Total Score: 2 Short Blessed Total Score: 9 DOS Physical Exam Medical history, medications, and allergies reviewed. Attestation: With today's edits, I endorse the the findings of the H&P dated: 12/21/2020. Airway Exam: Mallampati: I Cervical ROM: limited extension TM distance: 3 Cardiovascular Exam: Rate: regular Rhythm: regular Pulmonary Exam: LCTA, bilat EENT Exam: trachea midline Dental Exam: Appears intact Current state: Patient's current state is cooperative. Anesthesia Plan ASA 3 My patient is approved for the Anesthesia Controlled Medication protocol when under care of a RUBBER GOODS FINISHER Planned anesthesia: General Team communication plan: oral ET tube Induction: Induction: intravenous. Postoperative Plan: Postoperative administration opioids intended. Informed Consent: Discussed plan with RUBBER GOODS FINISHER. Anesthesia plan and risks discussed with patient. Consent and Attending signature: I and/or my designee have discussed the anesthesia plan, benefits, possible alternatives, parental presence at time of induction (if indicated), and clinically relevant risks that may include dental injury, unintentional awareness, and/or other complications. The patient and/or parent/legal guardian understand, and agree to proceed. All questions answered. * Anesthesia Postprocedure Evaluation - Rivas Funes III, MD PhD - 12/21/2020 11:38 AM CDT Patient: Marco A Deluna Procedure Summary Date: 12/21/20 Room / Location: [facility] OR POD 2 ROOM 204 / [facility] OR POD 2 Anesthesia Start: 719 Anesthesia Stop: 1033 Procedure: OPEN REDUCTION INTERNAL FIXATION - CALCANEOUS FRACTURE (Right Foot) Diagnosis: Closed displaced fracture of right calcaneus, unspecified portion of calcaneus, initial encounter (Closed displaced fracture of right calcaneus, unspecified portion of calcaneus, initial encounter [S92.001A]) Surgeons: No Thomas MD Responsible Provider: Selvin Busby MD Anesthesia Type: general ASA Status: Not recorded Anesthesia Type: general Last vitals BP 107/71 Pulse 100 Temp 36 ??C (96.8 ??F) Resp 18 SpO2 94% Anesthesia Post Evaluation Patient location during evaluation: PACU Patient participation: complete - patient participated Level of consciousness: fully awake Pain score: 6 (tolerable) Pain management: adequate Airway patency: adequate Evidence of recall: no Anesthetic complications: no Cardiovascular status: acceptable and hemodynamically stable Respiratory status: acceptable and nasal cannula (2L) Hydration status: acceptable Pt is: normothermic Nausea/Vomiting status: none Comments: Intact sensation in toes. Stable for transfer to floor * Anesthesia Procedure Notes - Krishna Robledo III, CRNA - 12/21/2020 8:24 AM CDTAssociated Order(s): Airway Airway Patient location: OR Urgency: elective Indications for airway management: anesthesia Difficult airway: no Staff: Placed by: RUBBER GOODS FINISHER: Krishna Robledo III, CRNA Emergent airway documentation: Risks and benefits discussed: yes Consent obtained: yes Consent given by: patient Airway prep: Preoxygenated: yes Patient position: sniffing MILS maintained throughout: yes Mask difficulty assessment: 1 - vent by mask Spontaneous ventilation during airway: absent Sedation level during airway: GA Final airway details: Final airway type: endotracheal airway Tube type: ETT ETT size: 8.0 mm Cuffed: yes Technique used for successful ETT placement: direct laryngoscopy Devices/Methods used in placement: intubating stylet Insertion site: oral Blade type: Sofía Blade size: 4 Cormack-Lehane (direct): grade IIb - view of arytenoids or posterior of glottis only Cuff volume: 10 mL Cuff inflated with: air ETT to lips: 24 cm Placement verified by: auscultation Airway secured with: silk tape Number of attempts: 1 documented in this encounter Plan of Treatment Not on file documented as of this encounter Procedures Procedure Name Priority Date/Time Associated Diagnosis Comments IN AN PROCEDURE PLACEHOLDER Routine 12/21/2020 8:24 AM CDT IN AN ELECTIVE ENDOTRACHEAL AIRWAY Routine 12/21/2020 8:24 AM CDT documented in this encounter Results * IN AN ELECTIVE ENDOTRACHEAL AIRWAY, IN AN PROCEDURE PLACEHOLDER (12/21/2020 8:24 AM CDT) Narrative Krishna Robledo III, CRNA - 12/21/2020 8:24 AM CDT Krishna Robledo III, CRNA ? 12/21/2020 ??8:24 AM Airway Patient location: OR Urgency: elective Indications for airway management: anesthesia Difficult airway: no Staff: Placed by: RUBBER GOODS FINISHER: Krishna Robledo III, CRNA Emergent airway documentation: Risks and benefits discussed: yes Consent obtained: yes Consent given by: patient Airway prep: Preoxygenated: yes Patient position: sniffing MILS maintained throughout: yes Mask difficulty assessment: 1 - vent by mask Spontaneous ventilation during airway: absent Sedation level during airway: GA Final airway details: Final airway type: endotracheal airway Tube type: ETT ETT size: 8.0 mm Cuffed: yes Technique used for successful ETT placement: direct laryngoscopy Devices/Methods used in placement: intubating stylet Insertion site: oral Blade type: Sofía Blade size: 4 Cormack-Lehane (direct): grade IIb - view of arytenoids or posterior of glottis only Cuff volume: 10 mL Cuff inflated with: air ETT to lips: 24 cm Placement verified by: auscultation Airway secured with: silk tape Number of attempts: 1 Selvin Busby MD ANESTHESIA ORDERABLES Final Result documented in this encounter Visit Diagnoses Not on filedocumented in this encounter Administered Medications Inactive Administered Medications - up to 3 most recent administrations Medication Order MAR Action Action Date Dose Rate Site calcium chloride IV syringe intravenous, As needed, Starting on Lilia 12/21/20 at 0742, Anesthesia Intra-op Given 12/21/2020 7:51 AM CDT 1 g Given 12/21/2020 7:42 AM CDT 1 g ceFAZolin (ANCEF) injection intravenous, Administer over 3 Minutes, As needed, Starting on Lilia 12/21/20 at 0746, Anesthesia Intra-op Given 12/21/2020 7:46 AM CDT 2,000 mg Lactated Ringer's (LR) infusion 50 mL/hr, intravenous, Continuous, Starting on Lilia 12/21/20 at 0745 New Bag 12/21/2020 9:03 AM CDT 50 mL/hr Rate/Dose Change 12/21/2020 7:20 AM CDT 600 mL/ hr New Bag 12/21/2020 7:18 AM CDT 50 mL/hr 50 mL/hr lidocaine (cardiac) (XYLOCAINE) preservative free injection intravenous, As needed, Starting on Lilia 12/21/20 at 0742, Anesthesia Intra-op, Indications: Ventricular ArrhythmiasIndications:Ventricular Arrhythmias Given 12/21/2020 7: 42 AM CDT 60 mg methadone (DOLOPHINE) injection intravenous, As needed, Starting on Lilia 12/21/20 at 0742, Anesthesia Intra-op Given 12/21/2020 7:42 AM CDT 20 mg midazolam (VERSED) 1 mg/mL preservative free injection intravenous, Administer over 2 Minutes, As needed, Starting on Lilia 12/21/20 at 0734, Anesthesia Intra-op Given 12/21/2020 7:34 AM CDT 2 mg Given 12/21/2020 7:22 AM CDT 2 mg phenylephrine (MACARENA-SYNEPHRINE) 1 mg/10 mL (100 mcg/mL) in sodium chloride 0.9% (premix) intravenous, As needed, Starting on Lilia 12/21/20 at 0801, Anesthesia Intra-op Given 12/21/2020 8:09 AM CDT 200 mcg Given 12/21/2020 8:06 AM CDT 200 mcg Given 12/21/2020 8:01 AM CDT 200 mcg phenylephrine (MACARENA-SYNEPHRINE) 5 mg/50 mL (100 mcg/mL) in sodium chloride 0.9% (premix) intravenous, Continuous PRN, Starting on Lilia 12/21/20 at 0739, Anesthesia Intra-op Rate/Dose Change 12/21/2020 8:41 AM CDT 0.6 mcg/kg/min 27.756 mL/hr Rate/Dose Change 12/21/2020 8:36 AM CDT 0.8 mcg/kg/min 37. 008 mL/hr Rate/Dose Change 12/21/2020 8:30 AM CDT 1 mcg/kg/min 46.26 mL/hr propofoL (DIPRIVAN) 10 mg/mL IV intravenous, As needed, Starting on Lilia 12/21/20 at 0742, Anesthesia Intra-op Given 12/21/2020 7:42 AM CDT 150 mg succinylcholine (ANECTINE) injection intravenous, As needed, Starting on Lilia 12/21/20 at 0742, Anesthesia Intra-op Given 12/21/2020 7:42 AM CDT 60 mg vecuronium (NORCURON) injection intravenous, Administer over 1 Minutes, As needed, Starting on Lilia 12/21/20 at 0746, Anesthesia Intra-op Given 12/21/2020 7:46 AM CDT 6 mg documented in this encounter Care Teams Sheet Metal Production Worker Relationship Specialty Start Date End Date Unknown, Notinfile PCP - General 12/09/20 12/24/20 No, Physician 12/09/20 documented as of this encounter
--- OUTSIDE RECORDS SUMMARY | 2024-09-11 03:22 | XMS_ITS | Encounter Summary ---
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 2.57(L) 4.30 - 5.80 M/cumm [facility] MCV 99.2(H) 81.3 - 96.4 fL [facility] MCH 31.5 27.1 - 33.3 pg [facility] MCHC 31.8(L) 32.3 - 35.7 g/dL [facility] RDW CV 14.3 11.1 - 14.9 % [facility] RDW SD 51.6(H) 35.7 - 48.1 fL [facility] NRBC abs 0.00 0.00 - 0.01 K/cumm [facility] Blood specimen (specimen) 12/24/2020 8:52 PM CDT 12/24/2020 9:06 PM CDT us Corine Hodgson MD LAB BLOOD ORDERABLES Griselda l Result Performing Organization Address City/[facility]/ZIP Co de Phone Number [facility] [place] [address] * Basic metabolic panel (12/24/2020 8:52 PM CDT) Pathologist [facility] Sodium 136 135 - 145 mmol/L [facility] Potassium, pl 4.5 3.3 - 4.9 mmol/L [facility] Chloride 101 97 - 110 mmol/L [facility] CO2 30 22 - 32 mmol/L [facility] Anion gap 5 2 - 15 mmol/L [facility] BUN 14 8 - 25 mg/dL [facility] Creatinine 1.01 0.80 - 1.30 mg/dL [facility] Glucose 107 70 - 199 mg/dL [facility] Comment: Interpretive Data Fasting glucose >/= 126 [...] 2017. Calcium 8.6 8.5 - 10.3 mg/dL [facility] Blood specimen (specimen) 12/24/2020 8:52 PM CDT 12/24/2020 9:06 PM CDT us Corine Hodgson MD LAB BLOOD ORDERABLES Griselda l Result [facility] [place] [address] * Differential, auto (12/23/2020 9:15 PM CDT) [facility] Neutrophil abs 5.5 1.7 - 6.5 K/cumm [facility] Imm gran abs 0.1 0.0 - 0.1 K/cumm [facility] Lymphocyte abs 2.0 0.8 - 3.3 K/cumm [facility] Monocyte abs 0.8 0.2 - 0.8 K/cumm [facility] Eosinophil abs 0.2 0.0 - 0.5 K/cumm [facility] Basophil abs 0.1 0.0 - 0.1 K/cumm [facility] Neutrophil pct 64.4 % [facility] Comment: Interpretive Data Percent cell count reference ranges are not reported, since discordance with absolute values may lead to misinterpretation of CBC data. Current Interpretive Data was last revised on 2017. Imm gran pct 1.2 % [facility] Comment: Interpretive Data Percent cell count reference ranges are not reported, since discordance with absolute values may lead to misinterpretation of CBC data. Current Interpretive Data was last revised on 2017. Lymphocyte pct 22.9 % [facility] Comment: Interpretive Data Percent cell count reference ranges are not reported, since discordance with absolute values may lead to misinterpretation of CBC data. Current Interpretive Data was last revised on 2017. Monocyte pct 8.8 % [facility] Comment: Interpretive Data Percent cell count reference ranges are not reported, since discordance with absolute values may lead to misinterpretation of CBC data. Current Interpretive Data was last revised on 2017. Eosinophil pct 1.8 % [facility] Comment: Interpretive Data Percent cell count reference ranges are not reported, since discordance with absolute values may lead to misinterpretation of CBC data. Current Interpretive Data was last revised on 2017. Basophil pct 0.9 % [facility] Comment: Interpretive Data Percent cell count reference ranges are not reported, since discordance with absolute values may lead to misinterpretation of CBC data. Current Interpretive Data was last revised on 2017. Blood specimen (specimen) 12/23/2020 9:15 PM CDT 12/23/2020 10:31 PM CDT us Corine Hodgson MD LAB BLOOD ORDERABLES Griselda mitchell Result [facility] [place] [address] * (ABNORMAL) CBC with auto differential (12/23/2020 9:15 PM CDT) [facility] WBC 8.6 3.8 - 9.9 K/cumm [facility] Hgb 8.3(L) 13.0 - 17.5 g/dL [facility] Hct 26.1(L) 38.9 - 50.3 % [facility] Plt 880(H) 150 - 400 K/cumm [facility] MPV 8.8(L) 9.1 - 12.3 fL [facility] RBC 2.62(L) 4.30 - 5.80 M/cumm [facility] MCV 99.6(H) 81.3 - 96.4 fL [facility] MCH 31.7 27.1 - 33.3 pg [facility] MCHC 31.8(L) 32.3 - 35.7 g/dL [facility] RDW CV 14.4 11.1 - 14.9 % [facility] RDW SD 52.3(H) 35.7 - 48.1 fL [facility] NRBC abs 0.00 0.00 - 0.01 K/cumm [facility] Blood specimen (specimen) 12/23/2020 9:15 PM CDT 12/23/2020 10:31 PM CDT Corine Hodgson MD LAB BLOOD ORDERABLES Griselda l Result [facility] [place] [address] * (ABNORMAL) Basic metabolic panel (12/23/2020 9:15 PM CDT) [facility] Sodium 136 135 - 145 mmol/L [facility] Potassium, pl 3.9 3.3 - 4.9 mmol/L [facility] Chloride 102 97 - 110 mmol/L [facility] CO2 29 22 - 32 mmol/L [facility] Anion gap 5 2 - 15 mmol/L [facility] BUN 12 8 - 25 mg/dL [facility] Creatinine 0.73(L) 0.80 - 1.30 mg/dL [facility] Glucose 112 70 - 199 mg/dL [facility] Comment: Interpretive Data Fasting glucose >/= 126 [...] 2017. Calcium 8.3(L) 8.5 - 10.3 mg/dL [facility] Blood specimen (specimen) 12/23/2020 9:15 PM CDT 12/23/2020 10:31 PM CDT Corine Hodgson MD LAB BLOOD ORDERABLES Griselda l Result [facility] [place] [address] * (ABNORMAL) Differential, auto (12/22/2020 10:27 PM CDT) Neutrophil abs 7.2(H) 1.7 - 6.5 K/cumm [facility] Imm gran abs 0.1 0.0 - 0.1 K/cumm [facility] Lymphocyte abs 1.9 0.8 - 3.3 K/cumm [facility] Monocyte abs 0.8 0.2 - 0.8 K/cumm [facility] Eosinophil abs 0.2 0.0 - 0.5 K/cumm [facility] Basophil abs 0.1 0.0 - 0.1 K/cumm [facility] Neutrophil pct 70.3 % [facility] Comment: Interpretive Data Percent cell count reference ranges are not reported, since discordance with absolute values may lead to misinterpretation of CBC data. Current Interpretive Data was last revised on 2017. Imm gran pct 1.3 % [facility] Comment: Interpretive Data Percent cell count reference ranges are not reported, since discordance with absolute values may lead to misinterpretation of CBC data. Current Interpretive Data was last revised on 2017. Lymphocyte pct 18.5 % [facility] Comment: Interpretive Data Percent cell count reference ranges are not reported, since discordance with absolute values may lead to misinterpretation of CBC data. Current Interpretive Data was last revised on 2017. Monocyte pct 7.5 % [facility] Comment: Interpretive Data Percent cell count reference ranges are not reported, since discordance with absolute values may lead to misinterpretation of CBC data. Current Interpretive Data was last revised on 2017. Eosinophil pct 1.5 % [facility] Comment: Interpretive Data Percent cell count reference ranges are not reported, since discordance with absolute values may lead to misinterpretation of CBC data. Current Interpretive Data was last revised on 2017. Basophil pct 0.9 % [facility] Comment: Interpretive Data Percent cell count reference ranges are not reported, since discordance with absolute values may lead to misinterpretation of CBC data. Current Interpretive Data was last revised on 2017. Blood specimen (specimen) 12/22/2020 10:27 PM CDT 12/22/2020 10:42 PM CDT Corine Hodgson MD LAB BLOOD ORDERABLES Griselda mitchell Result [facility] [place] [address] * (ABNORMAL) CBC with auto differential (12/22/2020 10:27 PM CDT) WBC 10.2(H) 3.8 - 9.9 K/cumm [facility] Hgb 7.7(L) 13.0 - 17.5 g/dL [facility] Hct 23.4(L) 38.9 - 50.3 % [facility] Plt 768(H) 150 - 400 K/cumm [facility] MPV 8.6(L) 9.1 - 12.3 fL [facility] RBC 2.39(L) 4.30 - 5.80 M/cumm [facility] MCV 97.9(H) 81.3 - 96.4 fL [facility] MCH 32.2 27.1 - 33.3 pg [facility] MCHC 32.9 32.3 - 35.7 g/dL [facility] RDW CV 14.1 11.1 - 14.9 % [facility] RDW SD 51.4(H) 35.7 - 48.1 fL [facility] NRBC abs 0.00 0.00 - 0.01 K/cumm [facility] Blood specimen (specimen) 12/22/2020 10:27 PM CDT 12/22/2020 10:42 PM CDT Corine Hodgson MD LAB BLOOD ORDERABLES Griselda l Result [facility] [place] [address] * (ABNORMAL) Basic metabolic panel (12/22/2020 10:27 PM CDT) Pathologist [facility] Sodium 136 135 - 145 mmol/L [facility] Potassium, pl 4.0 3.3 - 4.9 mmol/L [facility] Chloride 99 97 - 110 mmol/L [facility] CO2 30 22 - 32 mmol/L [facility] Anion gap 7 2 - 15 mmol/L [facility] BUN 15 8 - 25 mg/dL [facility] Creatinine 0.82 0.80 - 1.30 mg/dL [facility] Glucose 96 70 - 199 mg/dL [facility] Comment: Interpretive Data Fasting glucose >/= 126 [...] 2017. Calcium 8.3(L) 8.5 - 10.3 mg/dL [facility] Blood specimen (specimen) 12/22/2020 10:27 PM CDT 12/22/2020 10:45 PM CDT Corine Hodgson MD LAB BLOOD ORDERABLES Griselda l Result [facility] [place] [address] * (ABNORMAL) Differential, auto (12/21/2020 10:12 PM CDT) Neutrophil abs 9.1(H) 1.7 - 6.5 K/cumm [facility] gran abs 0.2(H) 0.0 - 0.1 K/cumm [facility] Lymphocyte abs 1.9 0.8 - 3.3 K/cumm [facility] Monocyte abs 1.0(H) 0.2 - 0.8 K/cumm [facility] Eosinophil abs 0.1 0.0 - 0.5 K/cumm [facility] Basophil abs 0.1 0.0 - 0.1 K/cumm [facility] Neutrophil pct 72.9 % [facility] Comment: Interpretive Data Percent cell count reference ranges are not reported, since discordance with absolute values may lead to misinterpretation of CBC data. Current Interpretive Data was last revised on 2017. Imm gran pct 1.7 % [facility] Comment: Interpretive Data Percent cell count reference ranges are not reported, since discordance with absolute values may lead to misinterpretation of CBC data. Current Interpretive Data was last revised on 2017. Lymphocyte pct 15.4 % [facility] Comment: Interpretive Data Percent cell count reference ranges are not reported, since discordance with absolute values may lead to misinterpretation of CBC data. Current Interpretive Data was last revised on 2017. Monocyte pct 8.3 % [facility] Comment: Interpretive Data Percent cell count reference ranges are not reported, since discordance with absolute values may lead to misinterpretation of CBC data. Current Interpretive Data was last revised on 2017. Eosinophil pct 1.1 % [facility] Comment: Interpretive Data Percent cell count reference ranges are not reported, since discordance with absolute values may lead to misinterpretation of CBC data. Current Interpretive Data was last revised on 2017. Basophil pct 0.6 % [facility] Comment: Interpretive Data Percent cell count reference ranges are not reported, since discordance with absolute values may lead to misinterpretation of CBC data. Current Interpretive Data was last revised on 2017. Blood specimen (specimen) 12/21/2020 10:12 PM CDT 12/21/2020 10:56 PM CDT us Corine Hodgson MD LAB BLOOD ORDERABLES Griselda mitchell Result [facility] [place] [address] * (ABNORMAL) CBC with auto differential (12/21/2020 10:12 PM CDT) WBC 12.5(H) 3.8 - 9.9 K/cumm [facility] Hgb 8.1(L) 13.0 - 17.5 g/dL [facility] Hct 24.8(L) 38.9 - 50.3 % [facility] Plt 709(H) 150 - 400 K/cumm [facility] MPV 9.0(L) 9.1 - 12.3 fL [facility] RBC 2.54(L) 4.30 - 5.80 M/cumm [facility] MCV 97.6(H) 81.3 - 96.4 fL [facility] MCH 31.9 27.1 - 33.3 pg [facility] MCHC 32.7 32.3 - 35.7 g/dL [facility] RDW CV 14.1 11.1 - 14.9 % [facility] RDW SD 50.5(H) 35.7 - 48.1 fL [facility] NRBC abs 0.00 0.00 - 0.01 K/cumm [facility] Blood specimen (specimen) 12/21/2020 10:12 PM CDT 12/21/2020 10:56 PM CDT Corine Hodgson MD LAB BLOOD ORDERABLES Griselda l Result [facility] [place] [address] * (ABNORMAL) Basic metabolic panel (12/21/2020 10:12 PM CDT) [facility] Sodium 132(L) 135 - 145 mmol/L [facility] Potassium, pl 4.7 3.3 - 4.9 mmol/L [facility] Chloride 98 97 - 110 mmol/L [facility] CO2 29 22 - 32 mmol/L [facility] Anion gap 5 2 - 15 mmol/L [facility] BUN 16 8 - 25 mg/dL [facility] Creatinine 0.79(L) 0.80 - 1.30 mg/dL [facility] Glucose 109 70 - 199 mg/dL [facility] Comment: Interpretive Data Fasting glucose >/= 126 [...] 2017. Calcium 8.3(L) 8.5 - 10.3 mg/dL [facility] Blood specimen (specimen) 12/21/2020 10:12 PM CDT 12/21/2020 10:56 PM CDT Corine Hodgson MD LAB BLOOD ORDERABLES Griselda l Result Performing Organization Address City/[facility]/ZIP Co de Phone Number [facility] [place] [address] * [place] Fluoroscopy < 1 Hour (12/21/2020 10:12 AM CDT) Narrative [facility] - 12/21/2020 10:13 AM CDT The images from this study are not interpreted by Radiology. ??Please refer to the physician's procedure / OR operative note. No Thomas MD IMG FLUOROSCOPY PROCEDURES F inal Result [facility] * XR Calcaneus Right 2 or More [...] Type and screen (12/21/2020 7:55 AM CDT) Pathologist [facility] ABO Rh A Positive [facility] Van, indirect Negative [facility] Blood specimen (specimen) 12/21/2020 7:55 AM CDT 12/21/2020 8:42 AM CDT Narrative [facility] - 12/21/2020 11:39 AM CDT Has the patient had Daratumumab or Isatuximab in the past 6 months?->Unknown Naima Stephenson MD LAB BLOOD BANK TEST ORDERABLES Final Result [facility] [place] [address] * (ABNORMAL) Differential, auto (12/20/2020 11:58 PM CDT) Pathologist [facility] Neutrophil abs 7.7(H) 1.7 - 6.5 K/cumm [facility] Imm gran abs 0.2(H) 0.0 - 0.1 K/cumm [facility] Lymphocyte abs 2.5 0.8 - 3.3 K/cumm [facility] Monocyte abs 1.1(H) 0.2 - 0.8 K/cumm [facility] Eosinophil abs 0.1 0.0 - 0.5 K/cumm [facility] Basophil abs 0.1 0.0 - 0.1 K/cumm [facility] Neutrophil pct 65.1 % [facility] Comment: Interpretive Data Percent cell count reference ranges are not reported, since discordance with absolute values may lead to misinterpretation of CBC data. Current Interpretive Data was last revised on 2017. Imm gran pct 2.0 % [facility] Comment: Interpretive Data Percent cell count reference ranges are not reported, since discordance with absolute values may lead to misinterpretation of CBC data. Current Interpretive Data was last revised on 2017. Lymphocyte pct 21.2 % [facility] Comment: Interpretive Data Percent cell count reference ranges are not reported, since discordance with absolute values may lead to misinterpretation of CBC data. Current Interpretive Data was last revised on 2017. Monocyte pct 9.7 % [facility] Comment: Interpretive Data Percent cell count reference ranges are not reported, since discordance with absolute values may lead to misinterpretation of CBC data. Current Interpretive Data was last revised on 2017. Eosinophil pct 1.1 % [facility] Comment: Interpretive Data Percent cell count reference ranges are not reported, since discordance with absolute values may lead to misinterpretation of CBC data. Current Interpretive Data was last revised on 2017. Basophil pct 0.9 % [facility] Comment: Interpretive Data Percent cell count reference ranges are not reported, since discordance with absolute values may lead to misinterpretation of CBC data. Current Interpretive Data was last revised on 2017. Blood specimen (specimen) 12/20/2020 11:58 PM CDT 12/21/2020 12:42 AM CDT us Corine Hodgson MD LAB BLOOD ORDERABLES Griselda l Result [facility] [place] [address] * (ABNORMAL) CBC with auto differential (12/20/2020 11:58 PM CDT) WBC 11.8(H) 3.8 - 9.9 K/cumm [facility] Hgb 8.8(L) 13.0 - 17.5 g/dL [facility] Hct 26.0(L) 38.9 - 50.3 % [facility] Plt 709(H) 150 - 400 K/cumm [facility] MPV 8.8(L) 9.1 - 12.3 fL [facility] RBC 2.71(L) 4.30 - 5.80 M/cumm [facility] MCV 95.9 81.3 - 96.4 fL [facility] MCH 32.5 27.1 - 33.3 pg [facility] MCHC 33.8 32.3 - 35.7 g/dL [facility] RDW CV 14.4 11.1 - 14.9 % [facility] RDW SD 50.1(H) 35.7 - 48.1 fL [facility] NRBC abs 0.00 0.00 - 0.01 K/cumm [facility] Blood specimen (specimen) 12/20/2020 11:58 PM CDT 12/21/2020 12:42 AM CDT Corine Hodgson MD LAB BLOOD ORDERABLES Griselda l Result [facility] [place] [address] * (ABNORMAL) Basic metabolic panel (12/20/2020 11:58 PM CDT) Sodium 133(L) 135 - 145 mmol/L [facility] Potassium, pl 4.3 3.3 - 4.9 mmol/L [facility] Chloride 99 97 - 110 mmol/L [facility] CO2 28 22 - 32 mmol/L [facility] Anion gap 6 2 - 15 mmol/L [facility] BUN 15 8 - 25 mg/dL [facility] Creatinine 0.86 0.80 - 1.30 mg/dL [facility] Glucose 119 70 - 199 mg/dL [facility] Comment: Interpretive Data Fasting glucose >/= 126 [...] 2017. Calcium 8.3(L) 8.5 - 10.3 mg/dL [facility] Blood specimen (specimen) 12/20/2020 11:58 PM CDT 12/21/2020 12:41 AM CDT Corine Hodgson MD LAB BLOOD ORDERABLES Griselda stephen Result [facility] [place] [address] * (ABNORMAL) Differential, auto (12/19/2020 10:12 PM CDT) Neutrophil abs 9.1(H) 1.7 - 6.5 K/cumm [facility] Imm gran abs 0.2(H) 0.0 - 0.1 K/cumm [facility] Lymphocyte abs 2.1 0.8 - 3.3 K/cumm [facility] Monocyte abs 0.9(H) 0.2 - 0.8 K/cumm [facility] Eosinophil abs 0.1 0.0 - 0.5 K/cumm [facility] Basophil abs 0.1 0.0 - 0.1 K/cumm [facility] Neutrophil pct 73.0 % [facility] Comment: Interpretive Data Percent cell count reference ranges are not reported, since discordance with absolute values may lead to misinterpretation of CBC data. Current Interpretive Data was last revised on 2017. Imm gran pct 1.4 % [facility] Comment: Interpretive Data Percent cell count reference ranges are not reported, since discordance with absolute values may lead to misinterpretation of CBC data. Current Interpretive Data was last revised on 2017. Lymphocyte pct 17.1 % [facility] Comment: Interpretive Data Percent cell count reference ranges are not reported, since discordance with absolute values may lead to misinterpretation of CBC data. Current Interpretive Data was last revised on 2017. Monocyte pct 7.2 % [facility] Comment: Interpretive Data Percent cell count reference ranges are not reported, since discordance with absolute values may lead to misinterpretation of CBC data. Current Interpretive Data was last revised on 2017. Eosinophil pct 0.6 % [facility] Comment: Interpretive Data Percent cell count reference ranges are not reported, since discordance with absolute values may lead to misinterpretation of CBC data. Current Interpretive Data was last revised on 2017. Basophil pct 0.7 % [facility] Comment: Interpretive Data Percent cell count reference ranges are not reported, since discordance with absolute values may lead to misinterpretation of CBC data. Current Interpretive Data was last revised on 2017. Blood specimen (specimen) 12/19/2020 10:12 PM CDT 12/19/2020 10:57 PM CDT us Caty Zuñiga RACE [employer]TER LAB BLOOD ORDERABLES Final R esult [facility] One [facility] [place] [address] * (ABNORMAL) CBC with auto differential (12/19/2020 10:12 PM CDT) WBC 12.5(H) 3.8 - 9.9 K/cumm [facility] Hgb 9.5(L) 13.0 - 17.5 g/dL [facility] Hct 29.1(L) 38.9 - 50.3 % [facility] Plt 694(H) 150 - 400 K/cumm [facility] MPV 8.9(L) 9.1 - 12.3 fL [facility] RBC 2.95(L) 4.30 - 5.80 M/cumm [facility] MCV 98.6(H) 81.3 - 96.4 fL [facility] MCH 32.2 27.1 - 33.3 pg [facility] MCHC 32.6 32.3 - 35.7 g/dL [facility] RDW CV 14.5 11.1 - 14.9 % [facility] RDW SD 52.5(H) 35.7 - 48.1 fL [facility] NRBC abs 0.00 0.00 - 0.01 K/cumm [facility] Blood specimen (specimen) 12/19/2020 10:12 PM CDT 12/19/2020 10:57 PM CDT Corine Hodgson MD LAB BLOOD ORDERABLES Griselda l Result Performing Organization Address City/[facility]/ZIP Co de Phone Number [facility] [place] [address] * Phosphorus (12/19/2020 10:12 PM CDT) Phosphorus, pl 4.4 2.3 - 4.5 mg/dL [facility] Blood specimen (specimen) 12/19/2020 10:12 PM CDT 12/19/2020 10:56 PM CDT Corine Hodgson MD LAB BLOOD ORDERABLES Griselda l Result Performing Organization Address [facility] Co de Phone Number [facility] [place] [address] * Magnesium (12/19/2020 10:12 PM CDT) Pathologist [facility] Magnesium 2.0 1.4 - 2.5 mg/dL [facility] Blood specimen (specimen) 12/19/2020 10:12 PM CDT 12/19/2020 10:56 PM CDT Corine Hodgson MD LAB BLOOD ORDERABLES Griselda l Result Performing Organization Address City/[facility]/[place] [address] * (ABNORMAL) Basic metabolic panel (12/19/2020 10:12 PM CDT) Sodium 133(L) 135 - 145 mmol/L [facility] Potassium, pl 4.6 3.3 - 4.9 mmol/L [facility] Chloride 101 97 - 110 mmol/L [facility] CO2 27 22 - 32 mmol/L [facility] Anion gap 5 2 - 15 mmol/L [facility] BUN 16 8 - 25 mg/dL [facility] Creatinine 0.82 0.80 - 1.30 mg/dL [facility] Glucose 107 70 - 199 mg/dL [facility] Comment: Interpretive Data Fasting glucose >/= 126 [...] 2017. Calcium 8.5 8.5 - 10.3 mg/dL [facility] Blood specimen (specimen) 12/19/2020 10:12 PM CDT 12/19/2020 10:56 PM CDT Corine Hodgson MD LAB BLOOD ORDERABLES Griselda mitchell Result [facility] [place] [address] * XR Ankle Right 2 Views (12/19/2020 [...] 1 Hour (12/19/2020 4:10 PM CDT) Narrative [facility] - 12/19/2020 4:10 PM CDT The images from this study are not interpreted by Radiology. ??Please refer to the physician's procedure / OR operative note. No Thomas MD [facility] FLUOROSCOPY PROCEDURES F inal Result [facility]ACS[facility] * (ABNORMAL) Differential, auto (12/18/2020 11:12 PM CDT) Neutrophil abs 8.5(H) 1.7 - 6.5 K/cumm [facility] Imm gran abs 0.3(H) 0.0 - 0.1 K[facility] Lymphocyte abs 2.3 0.8 - 3.3 K/cumm [facility] Monocyte abs 1.1(H) 0.2 - 0.8 K/cumm [facility] Eosinophil abs 0.2 0.0 - 0.5 K/cumm [facility] Basophil abs 0.1 0.0 - 0.1 K/cumm [facility] Neutrophil pct 68.4 % [facility] Comment: Interpretive Data Percent cell count reference ranges are not reported, since discordance with absolute values may lead to misinterpretation of CBC data. Current Interpretive Data was last revised on 2017. Imm gran pct 2.7 % [facility] Comment: Interpretive Data Percent cell count reference ranges are not reported, since discordance with absolute values may lead to misinterpretation of CBC data. Current Interpretive Data was last revised on 2017. Lymphocyte pct 18.3 % [facility] Comment: Interpretive Data Percent cell count reference ranges are not reported, since discordance with absolute values may lead to misinterpretation of CBC data. Current Interpretive Data was last revised on 2017. Monocyte pct 8.8 % [facility] Comment: Interpretive Data Percent cell count reference ranges are not reported, since discordance with absolute values may lead to misinterpretation of CBC data. Current Interpretive Data was last revised on 2017. Eosinophil pct 1.2 % [facility] Comment: Interpretive Data Percent cell count reference ranges are not reported, since discordance with absolute values may lead to misinterpretation of CBC data. Current Interpretive Data was last revised on 2017. Basophil pct 0.6 % [facility] Comment: Interpretive Data Percent cell count reference ranges are not reported, since discordance with absolute values may lead to misinterpretation of CBC data. Current Interpretive Data was last revised on 2017. Blood specimen (specimen) 12/18/2020 11:12 PM CDT 12/19/2020 12:25 AM CDT Caty Zuñiga NP LAB BLOOD ORDERABLES Final R esult Performing Organization Address City/[facility]/ZIP Co de Phone Number [facility] Department [place] [address] * (ABNORMAL) CBC with auto differential (12/18/2020 11:12 PM CDT) Pathologist [facility] WBC 12.5(H) 3.8 - 9.9 K/cumm [facility] Hgb 9.3(L) 13.0 - 17.5 g/dL [facility] Hct 28.3(L) 38.9 - 50.3 % [facility] Plt 629(H) 150 - 400 K/cumm [facility] MPV 9.1 9.1 - 12.3 fL [facility] RBC 2.91(L) 4.30 - 5.80 M/cumm [facility] MCV 97.3(H) 81.3 - 96.4 fL [facility] MCH 32.0 27.1 - 33.3 pg [facility] MCHC 32.9 32.3 - 35.7 g/dL [facility] RDW CV 14.3 11.1 - 14.9 % [facility] RDW SD 49.7(H) 35.7 - 48.1 fL [facility] NRBC abs 0.00 0.00 - 0.01 K/cumm [facility] Blood specimen (specimen) 12/18/2020 11:12 PM CDT 12/19/2020 12:25 AM CDT Corine Hodgson MD LAB BLOOD ORDERABLES Griselda l Result Performing Organization Address City/[facility]/ZIP Co de Phone Number [facility] Department [place] [address] * Phosphorus (12/18/2020 11:12 PM CDT) Pathologist [facility] Phosphorus, pl 4.2 2.3 - 4.5 mg/dL [facility] Blood specimen (specimen) 12/18/2020 11:12 PM CDT 12/19/2020 12:25 AM CDT Corine Hodgson MD LAB BLOOD ORDERABLES Griselda l Result Performing Organization Address City/[facility]/ZIP Co de Phone Number [facility] Department [place] [address] * Magnesium (12/18/2020 11:12 PM CDT) [facility] Magnesium 2.1 1.4 - 2.5 mg/dL [facility] Blood specimen (specimen) 12/18/2020 11:12 PM CDT 12/19/2020 12:25 AM CDT Corine Hodgson MD LAB BLOOD ORDERABLES Griselda l Result Performing Organization Address [facility] de Phone Number [facility] [place] [place] [address] * (ABNORMAL) Basic metabolic panel (12/18/2020 11:12 PM CDT) [facility] Sodium 134(L) 135 - 145 mmol/L [facility] Potassium, pl 4.3 3.3 - 4.9 mmol/L [facility] Chloride 102 97 - 110 mmol/L [facility] CO2 27 22 - 32 mmol/L [facility] Anion gap 5 2 - 15 mmol/L [facility] BUN 18 8 - 25 mg/dL [facility] Creatinine 0.88 0.80 - 1.30 mg/dL [facility] Glucose 132 70 - 199 mg/dL [facility] Comment: Interpretive Data Fasting glucose >/= 126 [...] 2017. Calcium 8.7 8.5 - 10.3 mg/dL [facility] Blood specimen (specimen) 12/18/2020 11:12 PM CDT 12/19/2020 12:25 AM CDT us Corine Hodgson MD LAB BLOOD ORDERABLES Griselda l Result [facility] [place] [address] * (ABNORMAL) Differential, auto (12/18/2020 12:04 AM CDT) Neutrophil abs 7.3(H) 1.7 - 6.5 K/cumm [facility] Imm gran abs 0.4(H) 0.0 - 0.1 K/cumm [facility] Lymphocyte abs 2.4 0.8 - 3.3 K/cumm [facility] Monocyte abs 0.9(H) 0.2 - 0.8 K/cumm [facility] Eosinophil abs 0.2 0.0 - 0.5 K/cumm [facility] Basophil abs 0.1 0.0 - 0.1 K/cumm [facility] Neutrophil pct 64.4 % [facility] Comment: Interpretive Data Percent cell count reference ranges are not reported, since discordance with absolute values may lead to misinterpretation of CBC data. Current Interpretive Data was last revised on 2017. Imm gran pct 3.8 % [facility] Comment: Interpretive Data Percent cell count reference ranges are not reported, since discordance with absolute values may lead to misinterpretation of CBC data. Current Interpretive Data was last revised on 2017. Lymphocyte pct 20.8 % [facility] Comment: Interpretive Data Percent cell count reference ranges are not reported, since discordance with absolute values may lead to misinterpretation of CBC data. Current Interpretive Data was last revised on 2017. Monocyte pct 8.1 % [facility] Comment: Interpretive Data Percent cell count reference ranges are not reported, since discordance with absolute values may lead to misinterpretation of CBC data. Current Interpretive Data was last revised on 2017. Eosinophil pct 2.0 % [facility] Comment: Interpretive Data Percent cell count reference ranges are not reported, since discordance with absolute values may lead to misinterpretation of CBC data. Current Interpretive Data was last revised on 2017. Basophil pct 0.9 % [facility] Comment: Interpretive Data Percent cell count reference ranges are not reported, since discordance with absolute values may lead to misinterpretation of CBC data. Current Interpretive Data was last revised on 2017. Blood specimen (specimen) 12/18/2020 12:04 AM CDT 12/18/2020 1:42 AM CDT Corine Hodgson MD LAB BLOOD ORDERABLES Griselda l Result [facility] [place] [address] * (ABNORMAL) CBC with auto differential (12/18/2020 12:04 AM CDT) WBC 11.3(H) 3.8 - 9.9 K/cumm [facility] Hgb 9.2(L) 13.0 - 17.5 g/dL [facility] Hct 27.9(L) 38.9 - 50.3 % [facility] Plt 572(H) 150 - 400 K/cumm [facility] MPV 9.2 9.1 - 12.3 fL [facility] RBC 2.89(L) 4.30 - 5.80 M/cumm [facility] MCV 96.5(H) 81.3 - 96.4 fL [facility] MCH 31.8 27.1 - 33.3 pg [facility] MCHC 33.0 32.3 - 35.7 g/dL [facility] RDW CV 14.0 11.1 - 14.9 % [facility] RDW SD 49.0(H) 35.7 - 48.1 fL [facility] NRBC abs 0.00 0.00 - 0.01 K/cumm [facility] Blood specimen (specimen) 12/18/2020 12:04 AM CDT 12/18/2020 1:42 AM CDT Corine Hodgson MD LAB BLOOD ORDERABLES Griselda l Result [facility] [place] [address] * Phosphorus (12/18/2020 12:04 AM CDT) Phosphorus, pl 3.8 2.3 - 4.5 mg/dL [facility] Blood specimen (specimen) 12/18/2020 12:04 AM CDT 12/18/2020 1:42 AM CDT Corine Hodgson MD LAB BLOOD ORDERABLES Griselda l Result Performing Organization Address City/[facility] Co de Phone Number [facility] Department [place] [address] * Magnesium (12/18/2020 12:04 AM CDT) Magnesium 2.1 1.4 - 2.5 mg/dL [facility] Blood specimen (specimen) 12/18/2020 12:04 AM CDT 12/18/2020 1:42 AM CDT Corine Hodgson MD LAB BLOOD ORDERABLES Griselda l Result Performing Organization Address City/[facility] Co de Phone Number [facility] [place] [address] * (ABNORMAL) Basic metabolic panel (12/18/2020 12:04 AM CDT) Sodium 132(L) 135 - 145 mmol/L [facility] Potassium, pl 4.2 3.3 - 4.9 mmol/L [facility] Chloride 99 97 - 110 mmol/L [facility] CO2 26 22 - 32 mmol/L [facility] Anion gap 7 2 - 15 mmol/L [facility] BUN 15 8 - 25 mg/dL [facility] Creatinine 0.73(L) 0.80 - 1.30 mg/dL [facility] Glucose 113 70 - 199 mg/dL [facility] Comment: Interpretive Data Fasting glucose >/= 126 [...] 2017. Calcium 8.5 8.5 - 10.3 mg/dL [facility] Blood specimen (specimen) 12/18/2020 12:04 AM CDT 12/18/2020 1:42 AM CDT us Corine Hodgson MD LAB BLOOD ORDERABLES Griselda l Result Performing Organization Address City/[facility]/ZIP Co de Phone Number [facility] One [facility] [place] [address] * Phosphorus (12/16/2020 10:28 PM CDT) Pathologist [facility] Phosphorus, pl 3.1 2.3 - 4.5 mg/dL [facility] Blood specimen (specimen) 12/16/2020 10:28 PM CDT 12/16/2020 11:27 PM CDT Corine Hodgson MD LAB BLOOD ORDERABLES Griselda l Result [facility] [place] [address] * Magnesium (12/16/2020 10:28 PM CDT) Pathologist [facility] Magnesium 2.0 1.4 - 2.5 mg/dL [facility] Blood specimen (specimen) 12/16/2020 10:28 PM CDT 12/16/2020 11:27 PM CDT Corine Hodgson MD LAB BLOOD ORDERABLES Griselda l Result [facility] [place] [address] * (ABNORMAL) Basic metabolic panel (12/16/2020 10:28 PM CDT) [facility] Sodium 135 135 - 145 mmol/L [facility] Potassium, pl 4.2 3.3 - 4.9 mmol/L [facility] Chloride 101 97 - 110 mmol/L [facility] CO2 29 22 - 32 mmol/L [facility] Anion gap 5 2 - 15 mmol/L [facility] BUN 14 8 - 25 mg/dL [facility] Creatinine 0.74(L) 0.80 - 1.30 mg/dL [facility] Glucose 121 70 - 199 mg/dL [facility] Comment: Interpretive Data Fasting glucose >/= 126 [...] 2017. Calcium 8.6 8.5 - 10.3 mg/dL [facility] Blood specimen (specimen) 12/16/2020 10:28 PM CDT 12/16/2020 11:27 PM CDT Corine Hodgson MD LAB BLOOD ORDERABLES Griselda l Result Performing Organization Address [facility] Co de Phone Number [facility] [place] [address] * Phosphorus (12/15/2020 9:45 PM CDT) Pathologist [facility] Phosphorus, pl 3.7 2.3 - 4.5 mg/dL [facility] Blood specimen (specimen) 12/15/2020 9:45 PM CDT 12/15/2020 10:29 PM CDT Corine Hodgson MD LAB BLOOD ORDERABLES Griselda l Result Performing Organization Address [facility] de Phone Number [facility] [place] [address] * Magnesium (12/15/2020 9:45 PM CDT) [facility] Magnesium 2.1 1.4 - 2.5 mg/dL [facility] Blood specimen (specimen) 12/15/2020 9:45 PM CDT 12/15/2020 10:29 PM CDT Corine Hodgson MD LAB BLOOD ORDERABLES Griselda l Result Performing Organization Address [facility] [place] [address] * (ABNORMAL) CBC without differential (12/15/2020 9:45 PM CDT) [facility] WBC 10.2(H) 3.8 - 9.9 K/cumm [facility] Hgb 9.0(L) 13.0 - 17.5 g/dL [facility] Hct 26.5(L) 38.9 - 50.3 % [facility] Plt 368 150 - 400 K/cumm [facility] MPV 9.2 9.1 - 12.3 fL [facility] RBC 2.78(L) 4.30 - 5.80 M/cumm [facility] MCV 95.3 81.3 - 96.4 fL [facility] MCH 32.4 27.1 - 33.3 pg [facility] MCHC 34.0 32.3 - 35.7 g/dL [facility] RDW CV 13.7 11.1 - 14.9 % [facility] RDW SD 47.6 35.7 - 48.1 fL [facility] NRBC abs 0.00 0.00 - 0.01 K/cumm [facility] Blood specimen (specimen) 12/15/2020 9:45 PM CDT 12/15/2020 10:30 PM CDT us Corine Hodgson MD LAB BLOOD ORDERABLES Griselda l Result [facility] [place] [address] * (ABNORMAL) Basic metabolic panel (12/15/2020 9:45 PM CDT) Sodium 130(L) 135 - 145 mmol/L [facility] Potassium, pl 4.2 3.3 - 4.9 mmol/L [facility] Chloride 98 97 - 110 mmol/L [facility] CO2 28 22 - 32 mmol/L [facility] Anion gap 4 2 - 15 mmol/L [facility] BUN 14 8 - 25 mg/dL [facility] Creatinine 0.72(L) 0.80 - 1.30 mg/dL [facility] Glucose 142 70 - 199 mg/dL [facility] Comment: Interpretive Data Fasting glucose >/= 126 [...] 2017. Calcium 8.3(L) 8.5 - 10.3 mg/dL [facility] Blood specimen (specimen) 12/15/2020 9:45 PM CDT 12/15/2020 10:29 PM CDT Corine Hodgson MD LAB BLOOD ORDERABLES Griselda l Result Performing Organization Address City/[facility]/ZIP Co de Phone Number [facility] [place] [address] * Phosphorus (12/14/2020 8:37 PM CDT) Phosphorus, pl 3.6 2.3 - 4.5 mg/dL [facility] Blood specimen (specimen) 12/14/2020 8:37 PM CDT 12/14/2020 9:46 PM CDT Corine Hodgson MD LAB BLOOD ORDERABLES Griselda l Result Performing Organization Address [facility] Co de Phone Number [facility] [place] [address] * Magnesium (12/14/2020 8:37 PM CDT) Magnesium 2.0 1.4 - 2.5 mg/dL [facility] Blood specimen (specimen) 12/14/2020 8:37 PM CDT 12/14/2020 9:46 PM CDT Corine Hodgson MD LAB BLOOD ORDERABLES Griselda l Result Performing Organization Address City/[facility]/ZIP Co de Phone Number [facility] Department of [facility] [place], [place] [id number] * (ABNORMAL) CBC without differential (12/14/2020 8:37 PM CDT) [facility] WBC 8.3 3.8 - 9.9 K/cumm [facility] Hgb 8.5(L) 13.0 - 17.5 g/dL [facility] Hct 25.7(L) 38.9 - 50.3 % [facility] Plt 273 150 - 400 K/cumm [facility] MPV 9.7 9.1 - 12.3 fL [facility] RBC 2.66(L) 4.30 - 5.80 M/cumm [facility] MCV 96.6(H) 81.3 - 96.4 fL [facility] MCH 32.0 27.1 - 33.3 pg [facility] MCHC 33.1 32.3 - 35.7 g/dL [facility] RDW CV 13.6 11.1 - 14.9 % [facility] RDW SD 48.2(H) 35.7 - 48.1 fL [facility] NRBC abs 0.00 0.00 - 0.01 K/cumm [facility] Blood specimen (specimen) 12/14/2020 8:37 PM CDT 12/14/2020 9:47 PM CDT Corine Hodgson MD LAB BLOOD ORDERABLES Griselda l Result [facility] [place] [address] * (ABNORMAL) Basic metabolic panel (12/14/2020 8:37 PM CDT) [facility] Sodium 132(L) 135 - 145 mmol/L [facility] Potassium, pl 4.1 3.3 - 4.9 mmol/L [facility] Chloride 100 97 - 110 mmol/L [facility] CO2 28 22 - 32 mmol/L [facility] Anion gap 4 2 - 15 mmol/L [facility] BUN 15 8 - 25 mg/dL [facility] Creatinine 0.79(L) 0.80 - 1.30 mg/dL [facility] Glucose 118 70 - 199 mg/dL [facility] Comment: Interpretive Data Fasting glucose >/= 126 [...] 2017. Calcium 8.4(L) 8.5 - 10.3 mg/dL [facility] Blood specimen (specimen) 12/14/2020 8:37 PM CDT 12/14/2020 9:46 PM CDT Corine Hodgson MD LAB BLOOD ORDERABLES Griselda l Result [facility] [place] [address] * Phosphorus (12/13/2020 8:48 PM CDT) Phosphorus, pl 3.0 2.3 - 4.5 mg/dL [facility] Blood specimen (specimen) 12/13/2020 8:48 PM CDT 12/13/2020 9:26 PM CDT Corine Hodgson MD LAB BLOOD ORDERABLES Griselda l Result [facility] [place] [address] * Magnesium (12/13/2020 8:48 PM CDT) Magnesium 2.0 1.4 - 2.5 mg/dL [facility] Blood specimen (specimen) 12/13/2020 8:48 PM CDT 12/13/2020 9:26 PM CDT Corine Hodgson MD LAB BLOOD ORDERABLES Griselda stephen Result Performing Organization Address [facility] Co de Phone Number [facility] [place] [address] * (ABNORMAL) CBC without differential (12/13/2020 8:48 PM CDT) Pathologist [facility] WBC 9.0 3.8 - 9.9 K/cumm [facility] Hgb 8.4(L) 13.0 - 17.5 g/dL [facility] Hct 24.9(L) 38.9 - 50.3 % [facility] Plt 209 150 - 400 K/cumm [facility] MPV 9.6 9.1 - 12.3 fL [facility] RBC 2.56(L) 4.30 - 5.80 M/cumm [facility] MCV 97.3(H) 81.3 - 96.4 fL [facility] MCH 32.8 27.1 - 33.3 pg [facility] MCHC 33.7 32.3 - 35.7 g/dL [facility] RDW CV 13.8 11.1 - 14.9 % [facility] RDW SD 49.2(H) 35.7 - 48.1 fL [facility] NRBC abs 0.00 0.00 - 0.01 K/cumm [facility] Blood specimen (specimen) 12/13/2020 8:48 PM CDT 12/13/2020 9:26 PM CDT Corine Hodgson MD LAB BLOOD ORDERABLES Griselda mitchell Result Performing Organization Address [facility]/ZIP Co de Phone Number [facility] [place] [address] * (ABNORMAL) Basic metabolic panel (12/13/2020 8:48 PM CDT) Pathologist [facility] Sodium 134(L) 135 - 145 mmol/L [facility] Potassium, pl 4.0 3.3 - 4.9 mmol/L [facility] Chloride 100 97 - 110 mmol/L [facility] CO2 28 22 - 32 mmol/L [facility] Anion gap 6 2 - 15 mmol/L [facility] BUN 13 8 - 25 mg/dL [facility] Creatinine 0.80 0.80 - 1.30 mg/dL [facility] Glucose 129 70 - 199 mg/dL [facility] Comment: Interpretive Data Fasting glucose >/= 126 [...] 2017. Calcium 8.3(L) 8.5 - 10.3 mg/dL [facility] Blood specimen (specimen) 12/13/2020 8:48 PM CDT 12/13/2020 9:26 PM CDT Corine Hodgson MD LAB BLOOD ORDERABLES Griselda l Result Performing Organization Address City/[facility]/ZIP Co de Phone Number [facility] [place] [address] * (ABNORMAL) Phosphorus (12/12/2020 10:53 PM CDT) Pathologist [facility] Phosphorus, pl 1.8(L) 2.3 - 4.5 mg/dL [facility] Blood specimen (specimen) 12/12/2020 10:53 PM CDT 12/12/2020 11:29 PM CDT Corine Hodgson MD LAB BLOOD ORDERABLES Griselda l Result [facility] [place] [address] * Magnesium (12/12/2020 10:53 PM CDT) [facility] Magnesium 1.9 1.4 - 2.5 mg/dL [facility] Blood specimen (specimen) 12/12/2020 10:53 PM CDT 12/12/2020 11:29 PM CDT us Corine Hodgson MD LAB BLOOD ORDERABLES Griselda l Result [facility] [place] [address] * (ABNORMAL) CBC without differential (12/12/2020 10:53 PM CDT) [facility] WBC 10.7(H) 3.8 - 9.9 K/cumm [facility] Hgb 8.4(L) 13.0 - 17.5 g/dL [facility] Hct 24.6(L) 38.9 - 50.3 % [facility] Plt 175 150 - 400 K/cumm [facility] MPV 9.4 9.1 - 12.3 fL [facility] RBC 2.54(L) 4.30 - 5.80 M/cumm [facility] MCV 96.9(H) 81.3 - 96.4 fL [facility] MCH 33.1 27.1 - 33.3 pg [facility] MCHC 34.1 32.3 - 35.7 g/dL [facility] RDW CV 13.6 11.1 - 14.9 % [facility] RDW SD 48.5(H) 35.7 - 48.1 fL [facility] NRBC abs 0.00 0.00 - 0.01 K/cumm [facility] Blood specimen (specimen) 12/12/2020 10:53 PM CDT 12/12/2020 11:30 PM CDT Corine Hodgson MD LAB BLOOD ORDERABLES Griselda l Result [facility] [place] [address] * (ABNORMAL) Basic metabolic panel (12/12/2020 10:53 PM CDT) Sodium 130(L) 135 - 145 mmol/L [facility] Potassium, pl 4.1 3.3 - 4.9 mmol/L [facility] Chloride 97 97 - 110 mmol/L [facility] CO2 26 22 - 32 mmol/L [facility] Anion gap 7 2 - 15 mmol/L [facility] BUN 11 8 - 25 mg/dL [facility] Creatinine 0.82 0.80 - 1.30 mg/dL [facility] Glucose 109 70 - 199 mg/dL [facility] Comment: Interpretive Data Fasting glucose >/= 126 [...] 2017. Calcium 8.0(L) 8.5 - 10.3 mg/dL [facility] Blood specimen (specimen) 12/12/2020 10:53 PM CDT 12/12/2020 11:29 PM CDT Cornie Hodgson MD LAB BLOOD ORDERABLES Griselda l Result Performing Organization Address [facility]/ZIP Co de Phone Number [facility] [place] [address] * FL Fluoroscopy < 1 Hour (12/12/2020 1:59 PM CDT) Narrative [facility] - 12/12/2020 1:59 PM CDT The images from this study are not interpreted by Radiology. ??Please refer to the physician's procedure / OR operative note. No Thomas MD IMG FLUOROSCOPY PROCEDURES F inal Result Performing Organization Address [facility] Co de Phone Number [email or web address] * Gentamicin level random (12/12/2020 8:36 AM CDT) Pathologist [facility] Gentamicin random <0.3 mcg/mL [facility] Comment: Interpretive Data No reference ranges have been established for random drug levels. Current Interpretive Data was last revised on 2020. Blood specimen (specimen) 12/12/2020 8:36 AM CDT 12/12/2020 8:47 AM CDT Corine Hodgson MD LAB BLOOD ORDERABLES Griselda l Result Performing Organization Address [facility] Co de Phone Number [facility] [place] [address] * (ABNORMAL) Phosphorus (12/11/2020 8:43 PM CDT) [facility] Phosphorus, pl 1.9(L) 2.3 - 4.5 mg/dL [facility] Blood specimen (specimen) 12/11/2020 8:43 PM CDT 12/11/2020 9:34 PM CDT Corine Hodgson MD LAB BLOOD ORDERABLES Griselda l Result Performing Organization Address [facility] Co de Phone Number [facility] [place] [address] * Magnesium (12/11/2020 8:43 PM CDT) [facility] Magnesium 1.7 1.4 - 2.5 mg/dL [facility] Blood specimen (specimen) 12/11/2020 8:43 PM CDT 12/11/2020 9:34 PM CDT Corine Hodgson MD LAB BLOOD ORDERABLES Griselda stephen Result Performing Organization Address [facility] Co de Phone Number [facility] [place] [address] * (ABNORMAL) CBC without differential (12/11/2020 8:43 PM CDT) WBC 12.7(H) 3.8 - 9.9 K/cumm [facility] Hgb 9.3(L) 13.0 - 17.5 g/dL [facility] Hct 27.6(L) 38.9 - 50.3 % [facility] Plt 158 150 - 400 K/cumm [facility] MPV 9.7 9.1 - 12.3 fL [facility] RBC 2.86(L) 4.30 - 5.80 M/cumm [facility] MCV 96.5(H) 81.3 - 96.4 fL [facility] MCH 32.5 27.1 - 33.3 pg [facility] MCHC 33.7 32.3 - 35.7 g/dL [facility] RDW CV 13.5 11.1 - 14.9 % [facility] RDW SD 47.8 35.7 - 48.1 fL [facility] NRBC abs 0.00 0.00 - 0.01 K/cumm [facility] Blood specimen (specimen) 12/11/2020 8:43 PM CDT 12/11/2020 9:35 PM CDT Corine Hodgson MD LAB BLOOD ORDERABLES Griselda mitchell Result Performing Organization Address [facility]/ZIP Co de Phone Number [facility] [place] [address] * (ABNORMAL) Basic metabolic panel (12/11/2020 8:43 PM CDT) Pathologist [facility] Sodium 133(L) 135 - 145 mmol/L [facility] Potassium, pl 4.1 3.3 - 4.9 mmol/L [facility] Chloride 102 97 - 110 mmol/L [facility] CO2 27 22 - 32 mmol/L [facility] Anion gap 4 2 - 15 mmol/L [facility] BUN 8 8 - 25 mg/dL [facility] Creatinine 0.92 0.80 - 1.30 mg/dL [facility] Glucose 125 70 - 199 mg/dL [facility] Comment: Interpretive Data Fasting glucose >/= 126 [...] 2017. Calcium 8.1(L) 8.5 - 10.3 mg/dL [facility] Blood specimen (specimen) 12/11/2020 8:43 PM CDT 12/11/2020 9:34 PM CDT Corine Hodgson MD LAB BLOOD ORDERABLES Griselda l Result Performing Organization Address City/[facility]/ZIP Co de Phone Number [facility] [place] [address] * Phosphorus (12/10/2020 8:36 PM CDT) Pathologist [facility] Phosphorus, pl 2.3 2.3 - 4.5 mg/dL [facility] Blood specimen (specimen) 12/10/2020 8:36 PM CDT 12/10/2020 9:25 PM CDT Corine Hodgson MD LAB BLOOD ORDERABLES Griselda l Result [facility] [place] [address] * Magnesium (12/10/2020 8:36 PM CDT) [facility] Magnesium 1.6 1.4 - 2.5 mg/dL [facility] Blood specimen (specimen) 12/10/2020 8:36 PM CDT 12/10/2020 9:25 PM CDT Corine Hodgson MD LAB BLOOD ORDERABLES Griselda mitchell Result [facility] [place] [address] * (ABNORMAL) CBC without differential (12/10/2020 8:36 PM CDT) 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 Per Yolanda Graf -yulissa- patient had surgery on 12-09-20 Hct 30.4(L) 38.9 - 50.3 % [facility] Plt 204 150 - 400 K/cumm [facility] MPV 10.2 9.1 - 12.3 fL [facility] RBC 3.18(L) 4.30 - 5.80 M/cumm [facility] MCV 95.6 81.3 - 96.4 fL [facility] MCH 32.1 27.1 - 33.3 pg [facility] MCHC 33.6 32.3 - 35.7 g/dL [facility] RDW CV 13.7 11.1 - 14.9 % [facility] RDW SD 48.2(H) 35.7 - 48.1 fL [facility] NRBC abs 0.00 0.00 - 0.01 K/cumm [facility] Blood specimen (specimen) 12/10/2020 8:36 PM CDT 12/10/2020 9:25 PM CDT Corine Hodgson MD LAB BLOOD ORDERABLES Griselda l Result [facility] [place] [address] * (ABNORMAL) Basic metabolic panel (12/10/2020 8:36 PM CDT) Sodium 132(L) 135 - 145 mmol/L [facility] Potassium, pl 4.8 3.3 - 4.9 mmol/L [facility] Comment:Hemolyzed; Potassium value may be falsely elevated by as much as 0.6-1.0 mmol/L. Suggest redraw and reanalysis. Chloride 104 97 - 110 mmol/L [facility] CO2 27 22 - 32 mmol/L [facility] Anion gap 1(L) 2 - 15 mmol/L [facility] BUN 8 8 - 25 mg/dL [facility] Creatinine 0.90 0.80 - 1.30 mg/dL [facility] Glucose 126 70 - 199 mg/dL [facility] Comment: Interpretive Data Fasting glucose >/= 126 [...] 2017. Calcium 8.3(L) 8.5 - 10.3 mg/dL [facility] Blood specimen (specimen) 12/10/2020 8:36 PM CDT 12/10/2020 9:25 PM CDT Corine Hodgson MD LAB BLOOD ORDERABLES Griselda l Result [facility] [place] [address] * Check Sample (12/10/2020 8:36 PM CDT) ABO Rh A Positive [facility] HCLL OTHER 12/10/2020 8:36 PM CDT 12/10/2020 9:33 PM CDT us Corine Hodgson MD LAB BLOOD ORDERABLES Griselda l Result [facility] [place] [address] * CT Maxiliofacial WO Contrast W 3D [...] physician's procedure / OR operative note. us Sachin Odonnell MD IMG FLUOROSCOPY P ROCEDURES [...] AM CDT) ABO Rh A Positive [facility] Van, indirect Negative [facility] Blood specimen (specimen) 12/10/2020 3:19 AM CDT 12/10/2020 3:31 AM CDT Narrative [facility] - 12/10/2020 4:50 AM CDT Has the patient had Daratumumab or Isatuximab in the past 6 months?->Unknown Yaa Fowler MD LAB BLOOD BANK TEST ORDERA BLES Final Result [facility] [place] [address] * XR Ankle Left 3 or More [...] fifth metatarsal base fracture. Dictated by: Primo Mroeno M.D. The radiology attending physician has personally [...] RBC: 1 Units (12/10/2020 1:25 AM CDT) Pathologist [facility] Product code [id number] [facility] Unit Number [id number] [facility] Product Blood Type APOS [facility] Dispense Status RETURNED [facility] Blood specimen (specimen) 12/10/2020 1:25 AM CDT 12/10/2020 1:25 AM CDT Narrative [facility] - 12/13/2020 7:58 AM CDT Are special requirements needed? (all products are leukoreduced)->No Date required:-[id number] LRRBC # of [id number] Reasons:-Intra-op transfusion} us Yaa Fowler MD BLOOD BANK PRODUCT ORDERAB LES Final Result Performing Organization Address [facility] Co de Phone Number [facility] [place] [address] * POCT glucose (12/10/2020 12:10 AM CDT) Glucose, POC 122 70 - 199 mg/dL [facility] Blood specimen (specimen) 12/10/2020 12:10 AM CDT 12/10/2020 12:10 AM CDT Irwin Chi MD LAB POCT ORDERABLES - DEVICE F inal Result Performing Organization Address [facility]/State/ZIP Co de Phone Number [facility] [place] [address] * (ABNORMAL) POCT glucose (12/09/2020 11:26 PM CDT) Pathologist [facility] Glucose, POC 63(L) 70 - 199 mg/dL [facility] Blood specimen (specimen) 12/09/2020 11:26 PM CDT 12/09/2020 11:26 PM CDT us Irwin Chi MD LAB POCT ORDERABLES - DEVICE F inal Result Performing Organization Address [facility] Co de Phone Number [facility] [place] [address] * (ABNORMAL) Urinalysis, microscopic only (12/09/2020 10:51 PM CDT) [facility] WBC, ur 0-5 0 - 5 /HPF [facility] RBC, ur 0-2 0 - 2 /HPF [facility] Bacteria, ur Trace(A) [facility] Mucous, ur Present(A) [facility] Culture Reflex Comment Reflex conditions for urine culture (WBC >10) not met. [facility] Urine 12/09/2020 10:5 1 PM CDT 12/09/2020 11:13 PM CDT us Stephanie Kennedy MD LAB URINE ORDERABLES Final Resu lt Performing Organization Address [facility] Co de Phone Number [facility] [place] [address] * COVID-19 Coronavirus antigen Nasopharyngeal (12/09/2020 10:51 PM CDT) [facility] COVID-19 Ag Presumptive Negative Presumptive Negative [facility] Comment: Interpretive data: Testing was performed under Emergency Use Authorization using the Tr[employer]ia System for detection of SARS-CoV-2 nucleocapsid antigen. [...] modified October 2020. Employeed in healthcare? No [facility] status? No [facility] Group care resident? No [facility] Hospitalized? No [facility] Is patient in ICU? No [facility] Symptomatic as defined by CDC? No [facility] Nasopharyngeal 12/09/2020 10 :51 PM CDT 12/09/2020 11:20 PM CDT Narrative [facility] - 12/09/2020 11:46 PM CDT Reason for testing?->Likely to be admitted to semi-private room Yaa Fowler MD LAB MICROBIOLOGY - GENERAL ORDERABLES Final Result [facility] [place] [address] * (ABNORMAL) Drugs of Abuse Screen, Urine without Confirmation (12/09/2020 10:51 PM CDT) Pathologist [facility] Amphetamine, ur Detected(A) CutOff 500ng/mL [facility] Comment: Interpretive Data - Amphetamines: ??Samples containing greater than 500 ng/mL d-methamphetamine ??or other cross-reacting amphetamine compounds are reported as positive. ??Amphetamine immunoassays are subject to significant false positive rates due to cross-reactivity of non-amphetamine drugs. Current Interpretive Data was last reviewed 2018. Barbiturates, ur Not Detected CutOff 200ng/mL [facility] Comment: Interpretive Data - Barbiturates: ??Samples containing greater than 200 ng/mL secobarbital or other cross-reacting barbiturate compounds are reported as positive. ??False positive and false negative results are possible. Current Interpretive Data was last reviewed 2018. Benzodiazepines, ur Not Detected CutOff 100ng/mL [facility] Comment: Interpretive Data - Benzodiazepines: ??Samples containing greater than 100 ng/mL nordiazepam or other cross-reacting compounds are reported as positive. ?? False positive and false negative results are possible. ?? Current Interpretive Data was last reviewed 2018. Cannabinoids, ur Detected(A) CutOff 50 ng/mL [facility] Comment: Interpretive Data - Cannabinoids: ??Samples containing greater than 50 ng/mL delta-9 THC -COOH or other cross-reacting compounds are reported as positive. ??False positive and false negative results are possible. ?? Current Interpretive Data was last reviewed 2018. Cocaine, ur Detected(A) CutOff 150ng/mL [facility] Comment: Interpretive Data - Cocaine: ??Samples containing greater than 150 ng/mL benzoylecgonine or other cross-reacting compounds are reported as positive. False positive and false negative results are possible. Current Interpretive Data was last reviewed 2018. Fentanyl, Ur Detected(A) Cutoff 1 ng/mL [facility] Comment: Interpretive Data - Fentanyls: ??Samples containing greater than 1 ng/mL fentanyl or other cross-reacting fentanyl compounds are reported as detected. ??False positive and false negative results are possible. Current Interpretive Data was last reviewed 2019. Methadone, ur Not Detected CutOff 300ng/mL [facility] Comment: Interpretive Data - Methadone: ??Samples containing greater than 300 ng/mL d,l-methadone or other cross-reacting compounds are reported as positive. ??False positive and false negative results are possible. Current Interpretive Data was last reviewed 2018. Opiates, ur Not Detected CutOff 300ng/mL [facility] Comment: Interpretive Data - Opiates: ??Samples containing greater than 300 ng/mL morphine or other cross-reacting compounds are reported as positive. ??False positive and false negative results are possible. Current Interpretive Data was last reviewed 2018. Oxycodone, ur Not Detected CutOff 100ng/mL [facility] Comment: Interpretive Data - Oxycodone: ??Samples containing greater than 100 ng/mL oxycodone or other cross-reacting compounds are reported as positive. ??False positive and false negative results are possible. ?? Current Interpretive Data was last reviewed 2018. Phencyclidine, ur Not Detected CutOff 25 ng/mL [facility] Comment: Interpretive Data - Phencyclidine: ??Samples containing greater than 25 ng/mL phencyclidine or other cross-reacting compounds are reported as positive. ??False positive and false negative results are possible. ?? Current Interpretive Data was last reviewed 2018. Urine Creatinine 220 mg/dL [facility] Comment: Interpretive Data Urine Creatinine: < 10 mg/dL is extremely dilute = or > 10 but < 20 mg/dL is dilute = or > 20 mg/dL is normal Current Interpretive Data was last revised on 2017. Urine 12/09/2020 10:5 1 PM CDT 12/09/2020 11:15 PM CDT Narrative [facility] - 12/10/2020 12:00 AM CDT Drug of Abuse screening is performed by immunoassay for medical purposes only. ??This is not to be used for Pain Management purposes. us Stephanie Kennedy MD LAB URINE ORDERABLES Final Resu lt [facility] [place] [address] * (ABNORMAL) Urinalysis reflex to microscopic and culture Urine (12/09/2020 10:51 PM CDT) Color, ur Yellow Yellow [facility] Clarity, ur Cloudy(A) Clear [facility] Specific gravity, ur 1.007(L) 1.010 - 1.025 [facility] pH, urine 6 [facility] Protein, ur ql 2+(A) Negative [facility] Glucose, ur ql Negative Negative [facility] Ketones, ur Negative Negative [facility] Bilirubin, ur Negative Negative [facility] Blood, ur 2+(A) Negative [facility] Urobilinogen, ur <2.0 <2.0 mg/dL [facility] Nitrite, ur Negative Negative [facility] Leukocyte esterase, ur Negative Negative [facility] UA reflex comment Reflex to microscopic UA will be performed. [facility] Urine 12/09/2020 10:5 1 PM CDT 12/09/2020 11:13 PM CDT Narrative [facility] - 12/10/2020 1:20 AM CDT ?? Urine pH is affected by diet, medications, systemic acid-base disturbances, and renal tubular function. ??pH may affect urinary stone formation. ??For example, urine pH below 6.0 may help reduce the tendency for calcium phosphate stones and pH greater than 6.0 may reduce the tendency for uric acid stone formation. Source: [employer]. Last revised 09-11-2017 us Stephanie Kennedy MD LAB MICROBIOLOGY - [facility]AL [facility] Final Result [facility] [place] [address] * XR Ankle Right 3 or More [...] joint spaces are normal. Procedure Note Obey Nihcole MD - 12/10/2020 EXAMINATION: 1. XR WRIST [...] with orthopedic hand service. Dictated by: Primo Chukwuneke, M.D. The radiology [...] with orthopedic hand service. Dictated by: Primo oMreno M.D. The radiology attending physician has personally [...] XR PROCEDURES Edited Result - Final * MA CRITICAL CARE ILL/INJURED PATIENT INIT 30-74 MIN [...] surface. Comminuted fractures of the superior, anterior ewbb of the left maxillary sinus are noted. [...] Nichole M.D. us Stephanie Kennedy MD IMG CT PROCEDURES Final Result * POCT creatinine (12/09/2020 7:48 PM CDT) Creatinine POC 1.2 0.7 - 1.3 mg/dL [facility] Blood specimen (specimen) 12/09/2020 7:48 PM CDT 12/09/2020 7:48 PM CDT us Notinfile Unknown LAB POCT ORDERABLES - DEVICE F inal Result [facility] [place] [address] * XR Pelvis 1 or 2 Views [...] by: Ivan Mckinney M.D. Stephanie Kennedy MD IMG XR PROCEDURES Final Result * XR Chest [...] by: Ivan Mckinney M.D. Stephanie Kennedy MD IMG XR PROCEDURES Final Result * (ABNORMAL) Differential, auto (12/09/2020 7:25 PM CDT) Neutrophil abs 14.8(H) 1.7 - 6.5 K/cumm [facility] Imm gran abs 0.2(H) 0.0 - 0.1 K/cumm [facility] Lymphocyte abs 2.8 0.8 - 3.3 K/cumm [facility] Monocyte abs 0.9(H) 0.2 - 0.8 K/cumm [facility] Eosinophil abs 0.1 0.0 - 0.5 K/cumm [facility] Basophil abs 0.1 0.0 - 0.1 K/cumm [facility] Neutrophil pct 78.6 % [facility] Comment: Interpretive Data Percent cell count reference ranges are not reported, since discordance with absolute values may lead to misinterpretation of CBC data. Current Interpretive Data was last revised on 2017. Imm gran pct 0.9 % [facility] Comment: Interpretive Data Percent cell count reference ranges are not reported, since discordance with absolute values may lead to misinterpretation of CBC data. Current Interpretive Data was last revised on 2017. Lymphocyte pct 15.0 % [facility] [facility] Comment: Interpretive Data Percent cell count reference ranges are not reported, since discordance with absolute values may lead to misinterpretation of CBC data. Current Interpretive Data was last revised on 2017. Monocyte pct 4.5 % [facility] Comment: Interpretive Data Percent cell count reference ranges are not reported, since discordance with absolute values may lead to misinterpretation of CBC data. Current Interpretive Data was last revised on 2017. Eosinophil pct 0.6 % [facility] Comment: Interpretive Data Percent cell count reference ranges are not reported, since discordance with absolute values may lead to misinterpretation of CBC data. Current Interpretive Data was last revised on 2017. Basophil pct 0.4 % [facility] Comment: Interpretive Data Percent cell count reference ranges are not reported, since discordance with absolute values may lead to misinterpretation of CBC data. Current Interpretive Data was last revised on 2017. Blood specimen (specimen) 12/09/2020 7:25 PM CDT 12/09/2020 7:33 PM CDT Stephanie Kennedy MD LAB BLOOD ORDERABLES Final Resu lt Performing Organization Address City/[facility] Co de Phone Number [facility] [place] [address] * (ABNORMAL) Ethanol (12/09/2020 7:25 PM CDT) Pathologist [facility] Ethanol 15(H) <=10 mg/dL [facility] Comment: Interpretive Data Legal limit of intoxication > or = 80 mg/dL Levels > or = 400 mg/dL are potentially TOXIC. Current interpretive data was last revised on 2018. Blood specimen (specimen) 12/09/2020 7:25 PM CDT 12/09/2020 7:34 PM CDT Stephanie Kennedy MD LAB BLOOD ORDERABLES Final Resu lt Performing Organization Address City/State/[facility] Co de Phone Number [facility] [place] [address] * (ABNORMAL) aPTT (12/09/2020 7:25 PM CDT) Pathologist [facility] aPTT 26(L) 27 - 37 sec [facility] Comment: Interpretive Data Therapeutic heparin range: 60.0 - 94.0 seconds. Based on correlation with therapeutic heparin activity range of 0.3-0.7 Units/mL. Current interpretive data was last revised on 2020. Blood specimen (specimen) 12/09/2020 7:25 PM CDT 12/09/2020 7:38 PM CDT Stephanie Kennedy MD LAB BLOOD ORDERABLES Final Resu lt Performing Organization Address [facility] de Phone Number [facility] [place] [address] * Protime-INR (12/09/2020 7:25 PM CDT) [facility] PT 12.4 9.5 - 13.6 sec [facility] INR 1.1 0.9 - 1.2 [facility] Comment: Interpretive data Oral anticoagulant therapeutic ranges: [...] ORDERABLES Final Resu lt Performing Organization Address [facility] Co de Phone Number [facility] [place] [address] * (ABNORMAL) Comprehensive metabolic panel (12/09/2020 7:25 PM CDT) [facility] Sodium 138 135 - 145 mmol/L [facility] Potassium, pl 3.9 3.3 - 4.9 mmol/L [facility] Chloride 105 97 - 110 mmol/L [facility] CO2 25 22 - 32 mmol/L [facility] Anion gap 8 2 - 15 mmol/L [facility] BUN 12 8 - 25 mg/dL [facility] Creatinine 1.16 0.80 - 1.30 mg/dL [facility] Glucose 156 70 - 199 mg/dL [facility] Comment: Interpretive Data Fasting glucose >/= 126 [...] 2017. Calcium 8.6 8.5 - 10.3 mg/dL [facility] Bilirubin, total 0.3 0.1 - 1.2 mg/dL [facility] Protein, pl 6.6 6.5 - 8.5 g/dL [facility] Albumin 3.7 3.5 - 5.0 g/dL [facility] Alk phos 69 40 - 130 Units/L [facility] ALT 96(H) 7 - 55 Units/L [facility] AST 143(H) 10 - 50 Units/L [facility] Blood specimen (specimen) 12/09/2020 7:25 PM CDT 12/09/2020 7:34 PM CDT us Stephanie Kennedy MD LAB BLOOD ORDERABLES Final Resu lt [facility] [place] [address] * (ABNORMAL) CBC with auto differential (12/09/2020 7:25 PM CDT) WBC 18.9(H) 3.8 - 9.9 K/cumm [facility] Hgb 13.4 13.0 - 17.5 g/dL [facility] Hct 40.4 38.9 - 50.3 % [facility] Plt 279 150 - 400 K/cumm [facility] MPV 9.0(L) 9.1 - 12.3 fL [facility] RBC 4.19(L) 4.30 - 5.80 M/cumm [facility] MCV 96.4 81.3 - 96.4 fL [facility] MCH 32.0 27.1 - 33.3 pg [facility] MCHC 33.2 32.3 - 35.7 g/dL [facility] RDW CV 13.4 11.1 - 14.9 % [facility] RDW SD 48.0 35.7 - 48.1 fL [facility] NRBC abs 0.00 0.00 - 0.01 K/cumm [facility] Blood specimen (specimen) 12/09/2020 7:25 PM CDT 12/09/2020 7:33 PM CDT us Stephanie Kennedy MD LAB BLOOD ORDERABLES Final Resu lt [facility] [place] [address] documented in this encounter Visit Diagnoses Diagnosis Closed nondisplaced fracture of posterior wall of left acetabulum (HCC)- Primary Pilon fracture of right tibia, closed, initial encounter Open displaced fracture of body of right calcaneus, initial encounter Laceration of left forearm, initial encounter Closed nondisplaced fracture of posterior wall of left acetabulum, initial encounter ([facility]) Type I or II open displaced pilon fracture of right tibia, initial encounter Open fracture of nasal bone, initial encounter Vitreous hemorrhage of left eye ([facility]/HCC) (HCC) Vitreous hemorrhage Closed fracture of neck of right fibula Pilon fracture of right tibia, closed, initial encounter Open displaced fracture of body of right calcaneus Laceration of left forearm Closed displaced fracture of right calcaneus, unspecified portion of calcaneus, initial encounter documented in this encounter Admitting Diagnoses Diagnosis [...] Given 12/24/2020 11:19 PM CDT 1,000 mg cyclobenzaprine (FLEXERIL) tablet 10 mg 10 mg, oral, 3 times daily, First dose on Fri12/10/20 at 1600 Given 12/25/2020 3:26 PM CDT 10 mg Given 12/25/2020 8:16 AM CDT 10 mg Given 12/24/2020 8:15 PM CDT 10 mg droperidoL (INAPSINE) injection 0.625 mg 0.625 mg, intravenous, Administer over 5 Minutes, Once as needed, nausea, Starting on Fri12/21/20 at 1039, For 1 dose enoxaparin (LOVENOX) [...] 10:54 AM CDT 1 application (deactiva corey) gabapentin (NEURONTIN) capsule 300 mg 300 mg, oral, 2 times daily, First dose on Fri12/10/20 at 2100 Given 12/25/2020 8:17 AM CDT 300 mg Given 12/24/2020 8:15 PM CDT 300 mg Given 12/24/2020 10:54 AM CDT 300 mg lidocaine (LIDODERM) 5 % patch 1 patch [...] 12/18/2020 9:20 AM CDT 1 patch Chest oxyCODONE (ROXICODONE) tablet 10 mg 10 mg, oral, Every 4 hours PRN, 2nd line for pain, Starting on Fri12/20/20 at 0809, Indications: PainIndications:Pain Given 12/25/2020 3:26 PM CDT 10 mg Given 12/25/2020 4:20 AM CDT 10 mg Given 12/24/2020 10:11 PM CDT 10 mg polyethylene glycol (MIRALAX) packet 17 g [...] dry eyes, Starting on Fri12/18/20 at 1202 senna-docusate (PERICOLACE) 8.6-50 mg per tablet 2 [...] intra-catheter, As needed, line care, Starting on 12/10/20 at 0433, Flush volume based on line type and size. Flush before and after each use. Given 12/19/2020 7:54 PM CDT 10 mL sodium chloride 0.9% irrigation As needed, Starting on Lilia 12/21/20 at 0848, Intra-Op Given 12/21/2020 8:48 AM CDT 1,000 mL Surgical Site sterile water irrigation As needed, Starting on Lilia 12/21/20 at 0848, Intra-Op Given 12/21/2020 8:48 AM CDT 500 mL Other (Comment) documented in this encounter Active and Recently Administered Medications Times are shown in CDT. Scheduled Medication Order 12/23/2020 12/24/2020 12/25/2020 acetaminophen (TYLENOL) tablet 1,000 mg 1,000 mg, oral, Every 6 hours scheduled, First dose on Fri12/10/20 at 0515 0244 (Not Given - Provider: Allegra Watson RN - Reason: Other)0615 (Given - Provider: Allegra Watson RN)1421 (Given - Provider: Ivan Lynn RN)1830 (Given - Provider: Ivan Lynn RN) 0015 (Given - Provider: Radha Ray, YULISSA)0523 (Given - Provider: Radha Ray, YULISSA)1253 (Given - Provider: Jolie Arredondo, YULISSA)1658 (Given - Provider: Jolie Arredondo, YULISSA)2319 (Given - Provider: Radha Ray, YULISSA) 0517 (Given - Provider: Radha Ray, YULISSA)1214 (Given - Provider: Noris Rachel, YULISSA) cyclobenzaprine (FLEXERIL) tablet 10 mg 10 mg, oral, 3 times daily, First dose on 12/10/20 at 1600 0957 (Given - Provider: Ivan Lynn, RN)1547 (Given - Provider: Ivan Lynn, RN)2227 (Given - Provider: Radha Ray, YULISSA) 1055 (Given - Provider: Jolie Arredondo, RN)1659 (Given - Provider: Jolie Arredondo, RN)2014 (Given - Provider: Radha Ray, YULISSA) 0816 (Given - Provider: Noris Rachel, RN)1526 (Given - Provider: Noris Rachel, RN) enoxaparin (LOVENOX) syringe 30 mg 30 mg, subcutaneous, Every 12 hours scheduled, First dose (after last modification) on Fri12/19/20 at 2100, Indications: Deep Vein Thrombosis Prevention 0956 (Given - Provider: Ivan Lynn, RN)2226 (Given - Provider: Radha Ray, YULISSA) 105 (Given - Provider: Jolie Arredondo, YULISSA)2014 (Given - Provider: Radha Ray RN) 0817 (Not Given - Provider: Noris Rachel, RN - Reason: Patient/family refused) erythromycin (ILOTYCIN) 5 mg/gram (0.5 %) ophthalmic ointment each eye, 2 times daily, First dose on Fri12/18/20 at 1245, Apply 1 cm ribbon. Over facial lacerations 0957 (Given - Provider: Ivan Lynn, YULISSA)2226 (Given - Provider: Radha Ray RN) 105 (Given - Provider: Jolie Arredondo, YULISSA)2014 (Given - Provider: Radha Ray, YULISSA) 0818 (Given - Provider: Noris Rachel, RN) gabapentin (NEURONTIN) capsule 300 mg 300 mg, oral, 2 times daily, First dose on Fri12/10/20 at 2100 0957 (Given - Provider: Ivan Lynn, RN)2227 (Given - Provider: Radha Ray, YULISSA) 105 (Given - Provider: Jolie Arredondo, YULISSA)2014 (Given - Provider: Radha Ray RN) 0817 (Given - Provider: Noris Rachel, YULISSA) HYDROmorphone (DILAUDID) injection 0.5 mg (COMPLETED) 0.5 mg, intravenous, Administer over 2 Minutes, Once, On Fri12/25/20 at 0545, For 1 dose, Indications: Pain uncontrolled by oral medication 0517 (Given - Provider: Radha Ray, YULISSA) lidocaine (LIDODERM) 5 % patch 1 patch 1 patch, transdermal, Administer over 12 Hours, Daily, First dose on Fri12/10/20 at 0515, Do not cover the holes on the top side of the patch., Apply to affected area: chest 0957 (Medication Applied - Provider: Ivan Lynn, RN)2229 (Medication Removed - Provider: Radha Ray RN) 1055 (Not Given - Provider: Jolie Arredondo, YULISSA - Reason: Patient/family refused) 0818 (Not Given - Provider: Noris Rachel, YULISSA - Reason: Patient/family refused) polyethylene glycol (MIRALAX) packet 17 g 17 g, oral, Daily, First dose on Fri12/13/20 at 1115, Indications: constipation 0956 (Given - Provider: Ivan Lynn, YULISSA) 1055 (Given - Provider: Jolie Arredondo, YULISSA) 0818 (Not Given - Provider: Noris Rachel RN - Reason: Patient/family refused) senna-docusate (PERICOLACE) 8.6-50 mg per tablet 2 tablet 2 tablet, oral, 2 times daily, First dose (after last modification) on Fri12/13/20 at 2100 0957 (Given - Provider: Ivan Lynn, YULISSA)222 (Given - Provider: Radha Ray, YULISSA) 1055 (Given - Provider: Jolie Arredondo, YULISSA)2014 (Given - Provider: Radha Ray, YULISSA) 0817 (Given - Provider: Noris Rachel, YULISSA) sodium chloride 0.9% flush 0.5-20 mL 0.5-20 mL, intra-catheter, Every 8 hours scheduled, First dose on Fri12/10/20 at 0600, Flush volume based on line type and size. 0616 (Given - Provider: Allegra Walter, RN)1548 (Given - Provider: Ivan Lynn, YULISSA)2229 (Given - Provider: Radha Ray, YULISSA) 0525 (Given - Provider: Radha Ray RN)1254 (Given - Provider: Jolie Arredondo, RN)2014 (Given - Provider: Radha Ray, YULISSA) 0520 (Given - Provider: Radha Ray, RN)1427 (Not Given - Provider: Noris Rachel RN - Reason: Loss of IV access) white petrolatum 42 % ointment () topical, 3 times daily, First dose on Fri12/13/20 at 0900, For 11 days, Apply to affected area: other, Indications: skin irritation 1046 (Not Given - Provider: Ivan Lynn RN - Reason: Other)1600 (Given - Provider: Ivan [...] breakthrough pain, Starting on Fri12/10/20 at 0433 0334 (Given - Provider: Allegra Watson RN)0956 (Given - Provider: Ivan Lynn, YULISSA)1547 (Given - Provider: Ivan Lynn, YULISSA) 0523 (Given - Provider: Radha Ray, YULISSA)1054 (Given - Provider: Jolie Arredondo, YULISSA) oxyCODONE (ROXICODONE) tablet 10 mg 10 mg, oral, Every 4 hours PRN, 2nd line for pain, Starting on Fri12/20/20 at 0809, Indications: Pain 0615 (Given - Provider: Allegra Watson RN)1421 (Given - Provider: Ivan Lynn RN)1829 (Given - Provider: Ivan Lynn, YULISSA)2229 (Given - Provider: Radha Ray, YULISSA) 0356 (Given - Provider: Radha Ray, YULISSA)0806 (Given - Provider: Kelsey Aiken, YULISSA)1253 (Given - Provider: Jolie Arredondo, RN)1658 (Given - Provider: Jolie Arredondo, RN)2211 (Given - Provider: Radha Ray, YULISSA) 0420 (Given - Provider: Radha Ray, YULISSA)1526 (Given - Provider: Noris Rachel RN) polyvinyl alcohol-povidone (REFRESH CLASSIC) 1.4-0.6 % ophthalmic solution 1 drop 1 drop, each eye, 4 times daily PRN, dry eyes, Starting on 12/18/20 at 1202 sodium chloride 0.9% flush 0.5-20 mL 0.5-20 mL, intra-catheter, As needed, line care, Starting on Fri12/10/20 at 0433, Flush volume based on line type and size. Flush before and after each use. documented in this encounter Orders Medications Ordered That Mynor ht Not Have Been Administered Count Last Ordered Date First Ordered Date HYDROmorphone (DILAUDID) injection 0.5 mg 1 12/25/2020 acetaminophen (TYLENOL) tablet 1,000 mg 5 0 12/21/2020 12/10/2020 diphenhydrAMINE (BENADRYL) i njection 12.5 mg 4 12/21/2020 12/10/2020 droperidoL (INAPSINE) injection 0.625 mg 1 12/21/2020 fentaNYL (SUBLIMAZE) preserv ative free injection 50 mcg 7 12/21/2020 12/09/2020 HYDROmorphone (DILAUDID) injection 0.4 mg 4 12/21/2020 12/10/2020 Lactated Ringer's (LR) infusion 3 1 12/10/2020 meperidine (DEMEROL) preserv ative free injection 12.5 mg 3 12/21/2020 12/10/2020 naloxone (NARCAN) 0.4 mg/mL injection 0.04-0.4 mg 4 12/21/2020 12/10/2020 oxyCODONE (ROXICODONE) tablet 5 mg 3 202012/10/2020 oxyCODONE (ROXICODONE) tablet 10 mg 1 12/20 ceFAZolin (ANCEF) 1 gram/10 mL in sterile water (premix) 1,000 mg 1 12/19/2020 enoxaparin (LOVENOX) syringe 30 mg 2 202012/10/2020 haloperidol (HALDOL) injection 1 mg 1 12/19 hydrALAZINE (APRESOLINE) injection 5 mg 3 0 12/19/2020 12/10/2020 labetaloL (NORMODYNE,TRANDAT E) injection 5 mg 3 12/19/2020 12/10/2020 prochlorperazine (COMPAZINE) injection 10 mg 1 12/19/2020 sodium chloride 0.9% flush 0.5-20 mL 3 12/0112/10/2020 sodium chloride 0.9% irrigation 4 1 12/10/2020 sterile water irrigation 2 12/19/2020 docusate with cottonseed oil enema 2 202012/17/2020 erythromycin (ILOTYCIN) 5 mg /gram (0.5 %) ophthalmic ointment 1 12/18/2020 polyvinyl alcohol-povidone ( REFRESH CLASSIC) 1.4-0.6 % ophthalmic solution 1 drop 1 12/18/2020 calcium gluconate 2 g/100 mL in sodium chloride (premix) solution 2 g 1 12/13/2020 magnesium sulfate 2 g/50 mL in water (premix) 2 g 2 12/13/2020 12/12/2020 polyethylene glycol (MIRALAX) packet 17 g 1 12/13/2020 potassium phosphates 30 mmol in sodium chloride 0.9% 500 mL IVPB 1 12/13/2020 senna-docusate (PERICOLACE) 8.6-50 mg per tablet 2 tablet 1 12/13/2020 sodium chloride 0.9% infusion 1 12/13/2020 HYDROmorphone (DILAUDID) injection 0.2 mg 3 12/12/2020 12/10/2020 ondansetron (ZOFRAN) injection 4 mg 2 12/1212/10/2020 bacitracin zinc 500 unit/gra m ointment packet 1 application 1 12/10/2020 ceFAZolin (ANCEF) 2,000 mg/2 0 mL in sterile water (premix) 2,000 mg 2 12/10/2020 12/10/19 cyclobenzaprine (FLEXERIL) tablet 10 mg 1 0 12/10/2020 dextrose 5% and sodium chlor juan jose 0.45% infusion (premix) 1 12/10/2020 enoxaparin (LOVENOX) syringe 40 mg 1 2020 gabapentin (NEURONTIN) capsule 300 mg 1 07/2021 gentamicin (GARAMYCIN) 370 m g in sodium chloride 0.9% 37 mL (10 mg/mL) syringe 2 12/10/2020 0 12/09/2020 lidocaine (LIDODERM) 5 % patch 1 patch 1 senna-docusate (PERICOLACE) 8.6-50 mg per tablet 1 tablet 1 12/10/2020 white petrolatum 42 % ointment 1 12/10/2020 dextrose 5% and Lactated Ringer's infusion 1 12/09/2020 fentaNYL (SUBLIMAZE) preserv ative free injection 1 12/09/2020 HYDROmorphone (DILAUDID) injection 1 mg 1 0 12/09/2020 ioversoL (OPTIRAY 320) intra venous syringe 100 mL 1 12/09/2020 ketamine (KETALAR) injection 20 mg 4 2020 Lactated Ringer's (LR) bolus 1,000 mL 1 06/2021 lidocaine PF (XYLOCAINE) 10 mg/mL (1 %) preservative free injection 200 mg 1 12/09/2020 lidocaine-EPINEPHrine (XYLOC LINSEY with EPI) 1 %-1:100,000 injection 20 mL 1 12/09/2020 Lab Orders Without Results Count Last Ordered [...] 12/10/2020 documented in this encounter Care Teams [employer] Relationship Specialty Start Date End Date Unknown, Notinfile PCP - General 12/09/20 12/24/20 No, Physician 12/09/20 documented as of this encounter
--- OUTSIDE RECORDS SUMMARY | 2024-09-11 03:23 | XMS_ITS | Encounter Summary ---
Author Organization [facility] Healthcare Address [address] [place] [address] Care Team Providers Care Internet Programmer Name Role Phone Unknown, Notinfile Primary Care Provider Unavail able No, Physician Unavailable Encounter Details Date Type Department Care Team (Late st Contact Info) Description 12/19/2020 1:43 PM CDT Anesthesia Event [facility] Operating Room 1 [facility] [place] [address] Ken Bobby MD [address] [place] [address] Anahi Jensen NP [id number] [place] [address] Anesthesia Record Procedure Summary Procedure Name Responsible Anesthesiologist Anesthesia Start Time Anesthesia Stop Time REMOVAL EXTERNAL FIXATION DEVICE LOWER EXTREMITY (Right: Leg Lower) Ken Bobby MD 12/19/20 1343 12/19/20 1636 Events Date Time Event Comment 12/19/2020 1254 In Preop 1327 1343 An Start 1345 In Room 1346 An Start Data 1355 An Induction The patient was reevaluated immediately before moderate or deep sedation use and before anesthesia induction. 1357 An Intubation 1405 Anesthesia Ready 1430 Proc Start 1430 Incision Start 1613 Proc Fin 1620 An Extubation 1623 an stop data 1625 Out of Room 1636 Handoff to RN I completed my handoff [...] disposition at the time of handoff: PACU 1636 An Stop 1636 Quick Note With emergence, left pupil noted to be larger than right pupil (unequal). Limited reactivity in left pupil. In PACU, patient stated he had both pupils dilated yesterday (12/19/20). Patient is able to move upper and lower extremities to command bilaterally. Patient is asking for by name. CHILD CARE DEVELOPMENT SPECIALIST notified. Meds Name Total midazolam PF 2 mg lidocaine (cardiac) syringe 2 % 100 mg propofol 160 mg fentaNYL 100 mcg rocuronium 100 mg phenylephrine 100 mcg/mL 500 mcg glycopyrrolate 0.4 mg ceFAZolin 2,000 mg phenylephrine infusion (100 mcg/mL) 4.59 mg HYDROmorphone 2 mg/mL 1.5 mg neostigmine injection 1 mg/mL 3 mg Lactated Ringer's (LR) infusion 1,239.5 mL * Agents Name O2% N2O O2 Air Sevoflurane Inspired Sevoflurane * Blood No blood administrations on file. Lines, Drains, and Airways Type Details Placement Removal RETIRED Surgical Site 12/10/20; 1047; Le ft; Arm; 08/03/24 (Retired LDA, Removed/Completed by [facility] with LDA Utility); 1213 (Retired LDA, Removed/Completed by [facility] with LDA Utility) 12/10/20 1047 by Vj Leung RN 08/03/24 1213 by Discharge Provider, Automatic RETIRED Surgical Site 12/10/20; 1047; Bilateral; Leg; external fix left legwound closure right thigh; 12/26/20 12/10/20 1047 by Vj Leung RN 12/26/20 0000 by Blanquita Kay RN RETIRED Surgical Site 12/10/20; 1115; Le ft, Posterior; Thigh; Surgical Site; 08/03/24 (Retired LDA, Removed/Completed by [facility] with LDA Utility); 1213 (Retired LDA, Removed/Completed by [facility] with LDA Utility) 12/10/20 1115 by Priscilla Chanel RN 08/03/24 1213 by Discharge Provider, Automatic RETIRED Surgical Site 12/10/20; 1115; Right; Hand; Index finger; 08/03/24 (Retired LDA, Removed/Completed by [facility] with LDA Utility); 1213 (Retired LDA, Removed/Completed by [facility] with LDA Utility) 12/10/20 1115 by Priscilla [...] by Noris Rachel RN ETT Placement Date: 12/19/20; Placement Time: 1357 (created via procedure documentation); Mask Ventilation: 1; Technique: Direct laryngoscopy; Type: ETT - single; Single Lumen Tube Size: 8 mm; Cuffed: Yes; Laryngoscope: Sofía; Blade Size: 4; Location: Oral; Grade View: Grade I; Insertion Attempts: 1; Placement Verification: Auscultation, Capnometry; Removal Date: 12/19/20; Removal Time: 1620 12/19/20 1357 by Joni Encarnacion CRNA 12/19/20 1620 by Joni Encarnacion CRNA RETIRED Surgical Site 12/19/20; 1452; Right; Leg; 08/03/24 (Retired LDA, Removed/Completed by [facility] with LDA Utility); 1213 (Retired LDA, Removed/Completed by [facility] with LDA Utility) 12/19/20 1452 by Corine [...] on file 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 Gender Identity Not on file Sexual Orientation Not on file documented as of this encounter OR Notes * Anesthesia Postprocedure Evaluation - Stefanie Ramirez MD - 12/19/2020 6:24 PM CDT Patient: Marco A Deluna Procedure Summary Date: 12/19/20 Room / Location: [facility] OR POD 2 ROOM 210 / [facility] OR POD 2 Anesthesia Start: 1343 Anesthesia Stop: 1636 Procedures: REMOVAL EXTERNAL FIXATION DEVICE LOWER EXTREMITY (Right Leg Lower) OPEN REDUCTION INTERNAL FIXATION TIBIA - DISTAL / PILON - SYNTHES (Right Leg Lower) Diagnosis: Closed displaced pilon fracture of right tibia, initial encounter (Closed displaced pilon fracture of right tibia, initial encounter [S82.871A]) Surgeons: No Thomas MD Responsible Provider: Ken Bobby MD Anesthesia Type: general ASA Status: Not recorded Anesthesia Type: general Last vitals BP 108/76 Pulse 96 Temp 36.4 ??C (97.5 ??F) (Temporal) Resp 11 SpO2 100% Anesthesia Post Evaluation Patient location during evaluation: PACU Patient participation: complete - patient participated Level of consciousness: fully awake Pain score: 0 Pain management: adequate Airway patency: patent and adequate Evidence of recall: no Anesthetic complications: no Cardiovascular status: acceptable and hemodynamically stable Respiratory status: acceptable and room air Hydration status: acceptable Pt is: normothermic Nausea/Vomiting status: none Comments: Can be discharged from PACU to the floor. * Anesthesia Procedure Notes - Joni Encarnacion RN - 12/19/2020 2:31 PM CDTAssociated Order(s): Airway Airway Patient location: OR Urgency: elective Date/time: 12/19/2020 1:57 PM Indications for airway management: anesthesia and airway protection Difficult airway: no Staff: Supervising provider: Chester Russell MD Placed by: Other staff: Joni Encarnacion, RN Emergent airway documentation: Risks and benefits discussed: yes Consent obtained: yes Consent given by: patient Airway prep: Preoxygenated: yes Patient position: sniffing Mask difficulty assessment: 1 - vent by mask Spontaneous ventilation during airway: absent Sedation level during airway: GA Final airway details: Final airway type: endotracheal airway Tube type: ETT ETT size: 8.0 mm Cuffed: yes Technique used for successful ETT placement: direct laryngoscopy Devices/Methods used in placement: intubating stylet and anterior pressure/BURP Insertion site: oral Blade type: Sofía Blade size: 4 Cormack-Lehane (direct): grade I - full view of glottis Cuff volume: 8 mL Cuff inflated with: air Placement verified by: auscultation and CO2 detection Airway secured with: silk tape Number of attempts: 1 Ventilation between attempts: none Planned trial extubation: yes * Anesthesia Preprocedure Evaluation - Chester Russell MD - 12/19/2020 1:27 PM CDT Anesthesia Evaluation Marco A Deluna is a 50 y.o. male Procedure(s): REMOVAL EXTERNAL FIXATION DEVICE LOWER EXTREMITY OPEN REDUCTION INTERNAL FIXATION TIBIA - DISTAL / PILON - SYNTHES INCISION AND DRAINAGE - FOOT APPLICATION EXTERNAL FIXATION DEVICE LOWER EXTREMITY Pre-Op Diagnosis Codes: * Pilon fracture of [...] No medications reported. Current Facility-Administered Medications: ??? [OCT Hold] acetaminophen (TYLENOL) tablet 1,000 mg, 1,000 mg, oral, Q6H MARILUZ, 1,000 mg at 12/19/20 1146 ??? [MAR Hold] cyclobenzaprine (FLEXERIL) tablet 10 mg, 10 mg, oral, TID, 10 mg at 12/19/20 0844 ??? [Held by Provider] enoxaparin (LOVENOX) syringe 30 mg, 30 mg, subcutaneous, Q12H MARILUZ, 30 mg at 12/18/20 2130 ??? [MAR Hold] erythromycin (ILOTYCIN) 5 mg/gram (0.5 %) ophthalmic ointment, , each eye, BID, 1 application at 12/19/2044 ??? [MAR Hold] gabapentin (NEURONTIN) capsule 300 mg, 300 mg, oral, BID, 300 mg at 12/19/20 0844 ??? [MAR Hold] HYDROmorphone (DILAUDID) injection 0.2 mg, 0.2 mg, intravenous, Q4H PRN, 0.2 mg at 12/17/20 1126 ??? Lactated Ringer's (LR) infusion, 30 mL/hr, intravenous, Continuous, Last Rate: 30 mL/hr at 12/19/20 1320, 30 mL/hr at 12/19/20 1320 ??? [MAR Hold] lidocaine (LIDODERM) 5 % patch 1 patch, 1 patch, transdermal, Daily, Last Rate: 0 mL/hr at 12/18/20 2131, 1 patch at 12/19/20 0843 ??? [MAR Hold] oxyCODONE (ROXICODONE) tablet 5 mg, 5 mg, oral, Q4H PRN, 5 mg at 12/19/20 0844 ??? [MAR Hold] polyethylene glycol (MIRALAX) packet 17 g, 17 g, oral, Daily, 17 g at 12/17/20 0914 ??? [MAR Hold] polyvinyl alcohol-povidone (REFRESH CLASSIC) 1.4-0.6 % ophthalmic solution 1 drop, 1drop, each eye, QID PRN ??? [MAR Hold] senna-docusate (PERICOLACE) 8.6-50 mg per tablet 2 tablet, 2 tablet, oral, BID, 2 tablet at 12/19/20 0843 ??? [MAR Hold] sodium chloride 0.9% flush 0.5-20 mL, 0.5-20 mL, intra-catheter, Q8H MARILUZ, 10 mL at 12/19/20 0556 ??? [MAR Hold] sodium chloride 0.9% flush 0.5-20 mL, 0.5-20 mL, intra-catheter, PRN ??? sodium chloride 0.9% flush 0.5-20 mL, 0.5-20 mL, intra-catheter, PRN ??? [MAR Hold] white petrolatum 42 % ointment, , topical, TID, Given at 12/19/20 0845 Social History Tobacco Use Smoking Status Never Smoker Smokeless Tobacco Never Used Substance and Sexual Activity Alcohol Use Yes Substance and Sexual Activity Drug Use Yes ??? Types: Marijuana No family history on file. Vitals: 12/19/20 1106 12/19/20 1319 12/19/20 1320 BP: 110/68 104/64 104/64 Pulse: 81 106 100 Resp: 18 18 (!) 6 Temp: 36.8 ??C (98.2 ??F) 36.8 ??C (98.2 ??F) SpO2: 95% 95% 95% PT: 12/09/2020: 12.4 sec INR: 12/09/2020: 1.1 APTT: 12/09/2020: 26 sec* Hgb A1C: No results found for requested labs within last 720 hours. CBC RBC: 12/18/2020: 2.91 M/cumm* RDW: No results found for requested labs within last 720 hours. MCHC: 12/18/2020: 32.9 g/dL MCH: 12/18/2020: 32.0 pg MCV: 12/18/2020: 97.3 fL* Hct: 12/18/2020: 28.3 %* Hgb: 12/18/2020: 9.3 g/dL* WBC: 12/18/2020: 12.5 K/cumm* MPV: 12/18/2020: 9.1 fL Platelets: 12/18/2020: 629 K/cumm* RDW CV: 12/18/2020: 14.3 % RDW Sd: 12/18/2020: 49.7 fL* BMP Glucose: 12/18/2020: 132 mg/dL Calcium: 12/18/2020: 8.7 mg/dL Sodium: 12/18/2020: 134 mmol/L* Potassium: 12/18/2020: 4.3 mmol/L CO2: 12/18/2020: 27 mmol/L Chloride: 12/18/2020: 102 mmol/L BUN: 12/18/2020: 18 mg/dL Creatinine: 12/18/2020: 0.88 mg/dL Short Blessed Total Score: 9 DOS Physical Exam Medical history, medications, and allergies reviewed. Attestation: This PAT evaluation Airway Exam: Mallampati: III Cardiovascular Exam: Rate: regular Rhythm: regular Pulmonary Exam: LCTA, bilat Dental Exam: Poor dentition Current state: Patient's current state is cooperative and interactive. Anesthesia Plan ASA 2 My patient is approved for the Anesthesia Controlled Medication protocol when under care of a BASKET HAND WEAVER Planned anesthesia: General Team communication plan: oral ET tube Induction: Induction: intravenous. Informed Consent: Discussed plan with BASKET HAND WEAVER. Anesthesia plan and risks discussed with patient. Plan and Consent Comments: Discussed risks, benefits, alternatives to general anesthesia including damage to oral/oropharyngeal structures, PONV, pain, need for prolonged postoperative ventilation, serious or even fatal cardiopulmonary or other complications. All questions answered to patient's satisfaction. Consent and Attending signature: I and/or my [...] Name Priority Date/Time Associated Diagnosis Comments CT AN PROCEDURE PLACEHOLDER Routine 12/19/2020 2:[address] AN ELECTIVE ENDOTRACHEAL AIRWAY Routine 12/19/2020 2:31 PM CDT documented in this encounter Results * CT AN ELECTIVE ENDOTRACHEAL AIRWAY, CT AN PROCEDURE PLACEHOLDER (12/19/2020 2:31 PM CDT) Narrative Joni Encarnacion RN - 12/19/2020 2:31 PM CDT Joni Encarnacion RN ? 12/19/2020 ??2:33 PM Airway Patient location: OR Urgency: elective Date/time: 12/19/2020 1:57 PM Indications for airway management: anesthesia and airway protection Difficult airway: no Staff: Supervising provider: Chester Russell MD Placed by: Other staff: Joni Encarnacion RN Emergent airway documentation: Risks and benefits discussed: yes Consent obtained: yes Consent given by: patient Airway prep: Preoxygenated: yes Patient position: sniffing Mask difficulty assessment: 1 - vent by mask Spontaneous ventilation during airway: absent Sedation level during airway: GA Final airway details: Final airway type: endotracheal airway Tube type: ETT ETT size: 8.0 mm Cuffed: yes Technique used for successful ETT placement: direct laryngoscopy Devices/Methods used in placement: intubating stylet and anterior pressure/BURP Insertion site: oral Blade type: Sofía Blade size: 4 Cormack-Lehane (direct): grade I - full view of glottis Cuff volume: 8 mL Cuff inflated with: air Placement verified by: auscultation and CO2 detection Airway secured with: silk tape Number of attempts: 1 Ventilation between attempts: none Planned trial extubation: yes us Chester Russell MD ANESTHESIA ORDERABLES Final Result documented in this encounter Visit Diagnoses Not on filedocumented in this encounter Administered Medications Inactive Administered Medications - up to 3 most recent administrations Medication Order MAR Action Action Date Dose Rate Site ceFAZolin (ANCEF) injection intravenous, Administer over 3 Minutes, As needed, Starting on Fri12/19/20 at 1413, Anesthesia Intra-op Given 12/19/2020 2:13 PM CDT 2,000 mg fentaNYL (SUBLIMAZE) preservative free injection intravenous, As needed, Starting on Fri12/19/20 at 1355, Anesthesia Intra-op Given 12/19/2020 1:55 PM CDT 100 mcg glycopyrrolate (ROBINUL) injection intravenous, Administer over 1 Minutes, As needed, Starting on Fri12/19/20 at 1612, Anesthesia Intra-op Given 12/19/2020 4:12 PM CDT 0.4 mg HYDROmorphone (DILAUDID) injection intravenous, Administer over 2 Minutes, As needed, Starting on Fri12/19/20 at 1454, Anesthesia Intra-op Given 12/19/2020 4:17 PM CDT 0.5 mg Given 12/19/2020 3:29 PM CDT 0.2 mg Given 12/19/2020 3:05 PM CDT 0.4 mg lidocaine (cardiac) (XYLOCAINE) preservative free injection intravenous, As needed, Starting on Fri12/19/20 at 1355, Anesthesia Intra-op, Indications: Ventricular ArrhythmiasIndications:Ventricular Arrhythmias Given 12/19/2020 1:55 PM CDT 100 mg midazolam (VERSED) 1 mg/mL preservative free injection intravenous, Administer over 2 Minutes, As needed, Starting on Fri12/19/20 at 1343, Anesthesia Intra-op Given 12/19/2020 1:43 PM CDT 2 mg neostigmine injection intravenous, Administer over 3 Minutes, As needed, Starting on Fri12/19/20 at 1612, Anesthesia Intra-op Given 12/19/2020 4:12 PM CDT 3 mg phenylephrine (MACARENA-SYNEPHRINE) 1 mg/10 mL (100 mcg/mL) in sodium chloride 0.9% (premix) intravenous, As needed, Starting on Fri12/19/20 at 1421, Anesthesia Intra-op Given 12/19/2020 2:32 PM CDT 100 mcg Given 12/19/2020 2:21 PM CDT 100 mcg Given 12/19/2020 2:12 PM CDT 100 mcg phenylephrine (MACARENA-SYNEPHRINE) 5 mg/50 mL (100 mcg/mL) in sodium chloride 0.9% (premix) intravenous, Continuous PRN, Starting on Fri12/19/20 at 1423, Anesthesia Intra-op Rate/Dose Change 12/19/2020 3:45 PM CDT 0.5 mcg/kg/min 23.13 mL/hr Rate/Dose Change 12/19/2020 3:33 PM CDT 0.3 mcg/kg/min 13. 878 mL/hr Rate/Dose Change 12/19/2020 3:10 PM CDT 0.5 mcg/kg/min 23. 13 mL/hr propofoL (DIPRIVAN) 10 mg/mL IV intravenous, As needed, Starting on Fri12/19/20 at 1355, Anesthesia Intra-op Given 12/19/2020 1:55 PM CDT 160 mg rocuronium (ZEMURON) injection intravenous, As needed, Starting on Fri12/19/20 at 1355, Anesthesia Intra-op Given 12/19/2020 3:29 PM CDT 10 mg Given 12/19/2020 3:09 PM CDT 10 mg Given 12/19/2020 2:50 PM CDT 10 mg documented in this encounter Care Teams Internet Programmer Relationship Specialty Start Date End Date Unknown, Notinfile PCP - General 12/09/20 12/24/20 No, Physician 12/09/20 documented as of this encounter
--- OUTSIDE RECORDS SUMMARY | 2024-09-11 03:23 | XMS_ITS | Encounter Summary ---
Author Organization [facility] Healthcare Address [address] [place] [address] Care Team Providers Care Produce Wrapper Name Role Phone Unknown, Notinfile Primary Care Provider Unavail able Unknown, Notinfile Primary Care Provider Unavail able No, Physician Unavailable No, Physician Primary Care Provider Encounter Details Date Type Department Care Team (Latest Contact Info) Description 12/14/2020 Ophth Exam Ophthalmology Ofelia Garcia MD [address] [place] [address] Social History Tobacco Use Types Packs/Day Years Used Date Smoking Tobacco: Every Day Smokeless Tobacco: Never Alcohol Use Standard Drinks/Week Comments Yes 0 (1 standard drink = 0.6 oz pur e alcohol) Sex and Gender Information Value Date Recorded Sex Assigned at Not on file 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 Gender Identity Not on file Sexual Orientation Not on file documented as of this encounter Plan of Treatment Not on file documented as of this encounter Visit Diagnoses Not on filedocumented in this encounter Eye Exam Visual Acuity Right eye Left eye Near sc 20/20 20/800 Tonometry (Tonopen, 2:03 PM) Right eye Left eye Pressure 16 18 Pupils Dark Light Shape React APD Right eye 3 2 Round Brisk None Left eye 5.5 5.5 Ovoid Nonreactive - by rev erse Visual Doyle Right eye Left eye Full Full Extraocular Movement Right eye Left eye Full, Ortho Full, Ortho External Exam Right eye Left eye External Normal Periorbital ecch ymosis Slit Lamp Exam Right eye Left eye Lids/Lashes Ecchymosis Ecchymosis, swel ling Conjunctiva/Sclera White and quiet, no Subconjunctival hemorrhage scattered MARILUZ Cornea Clear, no Epithelial defect Brionna r, no Epithelial defect Anterior Chamber Deep and formed Deep and quiet, Deep Iris Round and reactive ovoid extendi ng ST, NR Lens PCIOL Tr NS Anterior Vitreous Normal Normal Fundus Exam Right eye Left eye Posterior Vitreous Normal hazy view wit h dispersed vit heme Disc Normal, sharp margin s, no elevation, no pallor dispersed vit heme overlying disc, no pallor, no edema C/D Ratio 0.2 unable to apprec iate Macula Normal, flat, no heme Overlying vit heme, grossly flat, attached Vessels Normal c/c Normal c/c Periphery Normal, no heme, att ached 360 w/o RD/RT Overlying vit heme, grossly attached 360 Care Teams Produce Wrapper Relationship Specialty Start Date End Date Unknown, Notinfile PCP - General 12/09/20 12/24/20 Unknown, Notinfile PCP - General 12/25/20 02/27/21 No, Physician PCP - General 02/28/21 No, Physician 12/09/20 documented as of this encounter
--- OUTSIDE RECORDS SUMMARY | 2024-09-11 03:23 | XMS_ITS | Encounter Summary ---
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 last revised on 2017. Eosinophil pct 1.1 % [facility] Comment: Interpretive Data Percent cell count reference ranges are not reported, since discordance with absolute values may lead to misinterpretation of CBC data. Current Interpretive Data was last revised on 2017. Basophil pct 0.9 % [facility] Comment: Interpretive Data Percent cell count reference ranges are not reported, since discordance with absolute values may lead to misinterpretation of CBC data. Current Interpretive Data was last revised on 2017. Blood specimen (specimen) 12/20/2020 11:58 PM CDT 12/21/2020 12:42 AM CDT us Corine Hodgson MD LAB BLOOD ORDERABLES Griselda mitchell Result [facility] [place] [address] * (ABNORMAL) CBC with auto differential (12/20/2020 11:58 PM CDT) WBC 11.8(H) 3.8 - 9.9 K/cumm [facility] Hgb 8.8(L) 13.0 - 17.5 g/dL [facility] Hct 26.0(L) 38.9 - 50.3 % [facility] Plt 709(H) 150 - 400 K/cumm [facility] MPV 8.8(L) 9.1 - 12.3 fL [facility] RBC 2.71(L) 4.30 - 5.80 M/cumm [facility] MCV 95.9 81.3 - 96.4 fL [facility] MCH 32.5 27.1 - 33.3 pg [facility] MCHC 33.8 32.3 - 35.7 g/dL [facility] RDW CV 14.4 11.1 - 14.9 % [facility] RDW SD 50.1(H) 35.7 - 48.1 fL [facility] NRBC abs 0.00 0.00 - 0.01 K/cumm [facility] Blood specimen (specimen) 12/20/2020 11:58 PM CDT 12/21/2020 12:42 AM CDT us Corine Hodgson MD LAB BLOOD ORDERABLES Griselda l Result [facility] [place] [address] * (ABNORMAL) Basic metabolic panel (12/20/2020 11:58 PM CDT) Sodium 133(L) 135 - 145 mmol/L [facility] Potassium, pl 4.3 3.3 - 4.9 mmol/L [facility] Chloride 99 97 - 110 mmol/L [facility] CO2 28 22 - 32 mmol/L [facility] Anion gap 6 2 - 15 mmol/L [facility] BUN 15 8 - 25 mg/dL [facility] Creatinine 0.86 0.80 - 1.30 mg/dL [facility] Glucose 119 70 - 199 mg/dL [facility] Comment: Interpretive Data Fasting glucose >/= [...] 2017. Calcium 8.3(L) 8.5 - 10.3 mg/dL [facility] Blood specimen (specimen) 12/20/2020 11:58 PM CDT 12/21/2020 12:41 AM CDT us Corine Hodgson MD LAB BLOOD ORDERABLES Griselda stephen Result [facility] [place] [address] * (ABNORMAL) Differential, auto (12/19/2020 10:12 PM CDT) Neutrophil abs 9.1(H) 1.7 - 6.5 K/cumm [facility] Imm gran abs 0.2(H) 0.0 - 0.1 K/cumm [facility] Lymphocyte abs 2.1 0.8 - 3.3 K/cumm [facility] Monocyte abs 0.9(H) 0.2 - 0.8 K/cumm [facility] Eosinophil abs 0.1 0.0 - 0.5 K/cumm [facility] Basophil abs 0.1 0.0 - 0.1 K/cumm [facility] Neutrophil pct 73.0 % [facility] Comment: Interpretive Data Percent cell count reference ranges are not reported, since discordance with absolute values may lead to misinterpretation of CBC data. Current Interpretive Data was last revised on 2017. Imm gran pct 1.4 % [facility] Comment: Interpretive Data Percent cell count reference ranges are not reported, since discordance with absolute values may lead to misinterpretation of CBC data. Current Interpretive Data was last revised on 2017. Lymphocyte pct 17.1 % [facility] Comment: Interpretive Data Percent cell count reference ranges are not reported, since discordance with absolute values may lead to misinterpretation of CBC data. Current Interpretive Data was last revised on 2017. Monocyte pct 7.2 % [facility] Comment: Interpretive Data Percent cell count reference ranges are not reported, since discordance with absolute values may lead to misinterpretation of CBC data. Current Interpretive Data was last revised on 2017. Eosinophil pct 0.6 % [facility] Comment: Interpretive Data Percent cell count reference ranges are not reported, since discordance with absolute values may lead to misinterpretation of CBC data. Current Interpretive Data was last revised on 2017. Basophil pct 0.7 % [facility] Comment: Interpretive Data Percent cell count reference ranges are not reported, since discordance with absolute values may lead to misinterpretation of CBC data. Current Interpretive Data was last revised on 2017. Blood specimen (specimen) 12/19/2020 10:12 PM CDT 12/19/2020 10:57 PM CDT us Caty Zuñiga DENTAL TECHNOLOGY ADVISOR LAB BLOOD ORDERABLES Final R esult [facility] [place] [address] * (ABNORMAL) CBC with auto differential (12/19/2020 10:12 PM CDT) WBC 12.5(H) 3.8 - 9.9 K/cumm [facility] Hgb 9.5(L) 13.0 - 17.5 g/dL [facility] Hct 29.1(L) 38.9 - 50.3 % [facility] Plt 694(H) 150 - 400 K/cumm [facility] MPV 8.9(L) 9.1 - 12.3 fL [facility] RBC 2.95(L) 4.30 - 5.80 M/cumm [facility] MCV 98.6(H) 81.3 - 96.4 fL [facility] MCH 32.2 27.1 - 33.3 pg [facility] MCHC 32.6 32.3 - 35.7 g/dL [facility] RDW CV 14.5 11.1 - 14.9 % [facility] RDW SD 52.5(H) 35.7 - 48.1 fL [facility] NRBC abs 0.00 0.00 - 0.01 K/cumm [facility] Blood specimen (specimen) 12/19/2020 10:12 PM CDT 12/19/2020 10:57 PM CDT Corine Hodgson MD LAB BLOOD ORDERABLES Griselda l Result Performing Organization Address City/[facility]/ZIP Co de Phone Number [facility] [place] [address] * Phosphorus (12/19/2020 10:12 PM CDT) Pathologist [facility] Phosphorus, pl 4.4 2.3 - 4.5 mg/dL [facility] Blood specimen (specimen) 12/19/2020 10:12 PM CDT 12/19/2020 10:56 PM CDT Corine Hodgson MD LAB BLOOD ORDERABLES Griselda l Result Performing Organization Address [facility] Co de Phone Number [facility] [place] [address] * Magnesium (12/19/2020 10:12 PM CDT) Pathologist [facility] Magnesium 2.0 1.4 - 2.5 mg/dL [facility] Blood specimen (specimen) 12/19/2020 10:12 PM CDT 12/19/2020 10:56 PM CDT Corine Hodgson MD LAB BLOOD ORDERABLES Griselda l Result Performing Organization Address City/[facility] Co de Phone Number [facility] [place] [address] * (ABNORMAL) Basic metabolic panel (12/19/2020 10:12 PM CDT) Sodium 133(L) 135 - 145 mmol/L [facility] Potassium, pl 4.6 3.3 - 4.9 mmol/L [facility] Chloride 101 97 - 110 mmol/L [facility] CO2 27 22 - 32 mmol/L [facility] Anion gap 5 2 - 15 mmol/L [facility] BUN 16 8 - 25 mg/dL [facility] Creatinine 0.82 0.80 - 1.30 mg/dL [facility] Glucose 107 70 - 199 mg/dL [facility] Comment: Interpretive Data Fasting glucose >/= [...] 2017. Calcium 8.5 8.5 - 10.3 mg/dL [facility] Blood specimen (specimen) 12/19/2020 10:12 PM CDT 12/19/2020 10:56 PM CDT us Corine Hodgson MD LAB BLOOD ORDERABLES Griselda l Result [facility] [place] [address] * XR Ankle Right 2 Views (12/19/2020 [...] physician's procedure / OR operative note. No [facility] FLUOROSCOPY PROCEDURES F inal Result [id number] * [...] [facility] Neutrophil pct 68.4 % [facility] Comment: Interpretive Data Percent cell count reference ranges are not reported, since discordance with absolute values may lead to misinterpretation of CBC data. Current Interpretive Data was last revised on 2017. Imm gran pct 2.7 % [facility] Comment: Interpretive Data Percent cell count reference ranges are not reported, since discordance with absolute values may lead to misinterpretation of CBC data. Current Interpretive Data was last revised on 2017. Lymphocyte pct 18.3 % [facility] Comment: Interpretive Data Percent cell count reference ranges are not reported, since discordance with absolute values may lead to misinterpretation of CBC data. Current Interpretive Data was last revised on 2017. Monocyte pct 8.8 % [facility] Comment: Interpretive Data Percent cell count reference ranges are not reported, since discordance with absolute values may lead to misinterpretation of CBC data. Current Interpretive Data was last revised on 2017. Eosinophil pct 1.2 % [facility] Comment: Interpretive Data Percent cell count reference ranges are not reported, since discordance with absolute values may lead to misinterpretation of CBC data. Current Interpretive Data was last revised on 2017. Basophil pct 0.6 % [facility] Comment: Interpretive Data Percent cell count reference ranges are not reported, since discordance with absolute values may lead to misinterpretation of CBC data. Current Interpretive Data was last revised on 2017. Blood specimen (specimen) 12/18/2020 11:12 PM CDT 12/19/2020 12:25 AM CDT us Caty Zuñiga NP LAB BLOOD ORDERABLES Final R esult [facility] Department [place] [address] * (ABNORMAL) CBC with auto differential (12/18/2020 11:12 PM CDT) WBC 12.5(H) 3.8 - 9.9 K/cumm [facility] Hgb 9.3(L) 13.0 - 17.5 g/dL [facility] Hct 28.3(L) 38.9 - 50.3 % [facility] Plt 629(H) 150 - 400 K/cumm [facility] MPV 9.1 9.1 - 12.3 fL [facility] RBC 2.91(L) 4.30 - 5.80 M/cumm [facility] MCV 97.3(H) 81.3 - 96.4 fL [facility] MCH 32.0 27.1 - 33.3 pg [facility] MCHC 32.9 32.3 - 35.7 g/dL [facility] RDW CV 14.3 11.1 - 14.9 % [facility] RDW SD 49.7(H) 35.7 - 48.1 fL [facility] NRBC abs 0.00 0.00 - 0.01 K/cumm [facility] Blood specimen (specimen) 12/18/2020 11:12 PM CDT 12/19/2020 12:25 AM CDT us Corine Hodgson MD LAB BLOOD ORDERABLES Griselda l Result [facility] Department [place] [address] * Phosphorus (12/18/2020 11:12 PM CDT) [facility] Phosphorus, pl 4.2 2.3 - 4.5 mg/dL [facility] Blood specimen (specimen) 12/18/2020 11:12 PM CDT 12/19/2020 12:25 AM CDT Corine Hodgson MD LAB BLOOD ORDERABLES Griselda l Result Performing Organization Address City/[facility] Co de Phone Number [facility] Department [place] [address] * Magnesium (12/18/2020 11:12 PM CDT) [facility] Magnesium 2.1 1.4 - 2.5 mg/dL [facility] Blood specimen (specimen) 12/18/2020 11:12 PM CDT 12/19/2020 12:25 AM CDT Corine Hodgson MD LAB BLOOD ORDERABLES Griselda l Result Performing Organization Address [facility] de Phone Number [facility] [place] [address] * (ABNORMAL) Basic metabolic panel (12/18/2020 11:12 PM CDT) [facility] Sodium 134(L) 135 - 145 mmol/L [facility] Potassium, pl 4.3 3.3 - 4.9 mmol/L [facility] Chloride 102 97 - 110 mmol/L [facility] CO2 27 22 - 32 mmol/L [facility] Anion gap 5 2 - 15 mmol/L [facility] BUN 18 8 - 25 mg/dL [facility] Creatinine 0.88 0.80 - 1.30 mg/dL [facility] Glucose 132 70 - 199 mg/dL [facility] Comment: Interpretive Data Fasting glucose >/= [...] 2017. Calcium 8.7 8.5 - 10.3 mg/dL [facility] Blood specimen (specimen) 12/18/2020 11:12 PM CDT 12/19/2020 12:25 AM CDT us Corine Hodgson MD LAB BLOOD ORDERABLES Griselda mitchell Result [facility] Department [place] [address] * (ABNORMAL) Differential, auto (12/18/2020 12:04 AM CDT) Neutrophil abs 7.3(H) 1.7 - 6.5 K/cumm [facility] Imm gran abs 0.4(H) 0.0 - 0.1 K/cumm [facility] Lymphocyte abs 2.4 0.8 - 3.3 K/cumm [facility] Monocyte abs 0.9(H) 0.2 - 0.8 K/cumm [facility] Eosinophil abs 0.2 0.0 - 0.5 K/cumm [facility] Basophil abs 0.1 0.0 - 0.1 K/cumm [facility] Neutrophil pct 64.4 % [facility] Comment: Interpretive Data Percent cell count reference ranges are not reported, since discordance with absolute values may lead to misinterpretation of CBC data. Current Interpretive Data was last revised on 2017. Imm gran pct 3.8 % [facility] Comment: Interpretive Data Percent cell count reference ranges are not reported, since discordance with absolute values may lead to misinterpretation of CBC data. Current Interpretive Data was last revised on 2017. Lymphocyte pct 20.8 % [facility] Comment: Interpretive Data Percent cell count reference ranges are not reported, since discordance with absolute values may lead to misinterpretation of CBC data. Current Interpretive Data was last revised on 2017. Monocyte pct 8.1 % [facility] Comment: Interpretive Data Percent cell count reference ranges are not reported, since discordance with absolute values may lead to misinterpretation of CBC data. Current Interpretive Data was last revised on 2017. Eosinophil pct 2.0 % [facility] Comment: Interpretive Data Percent cell count reference ranges are not reported, since discordance with absolute values may lead to misinterpretation of CBC data. Current Interpretive Data was last revised on 2017. Basophil pct 0.9 % [facility] Comment: Interpretive Data Percent cell count reference ranges are not reported, since discordance with absolute values may lead to misinterpretation of CBC data. Current Interpretive Data was last revised on 2017. Blood specimen (specimen) 12/18/2020 12:04 AM CDT 12/18/2020 1:42 AM CDT Corine Hodgson MD LAB BLOOD ORDERABLES Griselda mitchell Result [facility] [place] [address] * (ABNORMAL) CBC with auto differential (12/18/2020 12:04 AM CDT) [facility] 11.3(H) 3.8 - 9.9 K/cumm [facility] Hgb 9.2(L) 13.0 - 17.5 g/dL [facility] Hct 27.9(L) 38.9 - 50.3 % [facility] Plt 572(H) 150 - 400 K/cumm [facility] MPV 9.2 9.1 - 12.3 fL [facility] RBC 2.89(L) 4.30 - 5.80 M/cumm [facility] MCV 96.5(H) 81.3 - 96.4 fL [facility] MCH 31.8 27.1 - 33.3 pg [facility] MCHC 33.0 32.3 - 35.7 g/dL [facility] RDW CV 14.0 11.1 - 14.9 % [facility] RDW SD 49.0(H) 35.7 - 48.1 fL [facility] NRBC abs 0.00 0.00 - 0.01 K/cumm [facility] Blood specimen (specimen) 12/18/2020 12:04 AM CDT 12/18/2020 1:42 AM CDT Corine Hodgson MD LAB BLOOD ORDERABLES Griselda l Result Performing Organization Address City/[facility]/[place] [address] * Phosphorus (12/18/2020 12:04 AM CDT) Phosphorus, pl 3.8 2.3 - 4.5 mg/dL [facility] Blood specimen (specimen) 12/18/2020 12:04 AM CDT 12/18/2020 1:42 AM CDT Corine Hodgson MD LAB BLOOD ORDERABLES Griselda l Result Performing Organization Address [facility] Co de Phone Number [facility] [place] [address] * Magnesium (12/18/2020 12:04 AM CDT) Magnesium 2.1 1.4 - 2.5 mg/dL [facility] Blood specimen (specimen) 12/18/2020 12:04 AM CDT 12/18/2020 1:42 AM CDT Corine Hodgson MD LAB BLOOD ORDERABLES Griselda l Result Performing Organization Address City/[facility] Co de Phone Number [facility] [place] [address] * (ABNORMAL) Basic metabolic panel (12/18/2020 12:04 AM CDT) Sodium 132(L) 135 - 145 mmol/L [facility] Potassium, pl 4.2 3.3 - 4.9 mmol/L [facility] Chloride 99 97 - 110 mmol/L [facility] CO2 26 22 - 32 mmol/L [facility] Anion gap 7 2 - 15 mmol/L [facility] BUN 15 8 - 25 mg/dL [facility] Creatinine 0.73(L) 0.80 - 1.30 mg/dL [facility] Glucose 113 70 - 199 mg/dL [facility] Comment: Interpretive Data Fasting glucose >/= [...] 2017. Calcium 8.5 8.5 - 10.3 mg/dL [facility] Blood specimen (specimen) 12/18/2020 12:04 AM CDT 12/18/2020 1:42 AM CDT us Corine Hodgson MD LAB BLOOD ORDERABLES Griselda mitchell Result [facility] Department [place] [address] * Phosphorus (12/16/2020 10:28 PM CDT) Phosphorus, pl 3.1 2.3 - 4.5 mg/dL [facility] Blood specimen (specimen) 12/16/2020 10:28 PM CDT 12/16/2020 11:27 PM CDT Corine Hodgson MD LAB BLOOD ORDERABLES Griselda l Result Performing Organization Address City/[facility]/ZIP Co de Phone Number [facility] [place] [address] * Magnesium (12/16/2020 10:28 PM CDT) [facility] Magnesium 2.0 1.4 - 2.5 mg/dL [facility] Blood specimen (specimen) 12/16/2020 10:28 PM CDT 12/16/2020 11:27 PM CDT Corine Hodgson MD LAB BLOOD ORDERABLES Griselda l Result Performing Organization Address [facility] Co de Phone Number [facility] Department [place] [address] * (ABNORMAL) Basic metabolic panel (12/16/2020 10:28 PM CDT) [facility] Sodium 135 135 - 145 mmol/L [facility] Potassium, pl 4.2 3.3 - 4.9 mmol/L [facility] Chloride 101 97 - 110 mmol/L [facility] CO2 29 22 - 32 mmol/L [facility] Anion gap 5 2 - 15 mmol/L [facility] BUN 14 8 - 25 mg/dL [facility] Creatinine 0.74(L) 0.80 - 1.30 mg/dL [facility] Glucose 121 70 - 199 mg/dL [facility] Comment: Interpretive Data Fasting glucose >/= [...] 2017. Calcium 8.6 8.5 - 10.3 mg/dL [facility] Blood specimen (specimen) 12/16/2020 10:28 PM CDT 12/16/2020 11:27 PM CDT Corine Hodgson MD LAB BLOOD ORDERABLES Griselda l Result Performing Organization Address [facility] Co de Phone Number [facility] [place] [address] * Phosphorus (12/15/2020 9:45 PM CDT) Pathologist [facility] Phosphorus, pl 3.7 2.3 - 4.5 mg/dL [facility] Blood specimen (specimen) 12/15/2020 9:45 PM CDT 12/15/2020 10:29 PM CDT Corine Hodgson MD LAB BLOOD ORDERABLES Griselda l Result Performing Organization Address [facility] Co de Phone Number [facility] [place] [address] * Magnesium (12/15/2020 9:45 PM CDT) [facility] Magnesium 2.1 1.4 - 2.5 mg/dL [facility] Blood specimen (specimen) 12/15/2020 9:45 PM CDT 12/15/2020 10:29 PM CDT Corine Hodgson MD LAB BLOOD ORDERABLES Griselda l Result Performing Organization Address [facility] [place] [address] * (ABNORMAL) CBC without differential (12/15/2020 9:45 PM CDT) [facility] WBC 10.2(H) 3.8 - 9.9 K/cumm [facility] Hgb 9.0(L) 13.0 - 17.5 g/dL [facility] Hct 26.5(L) 38.9 - 50.3 % [facility] Plt 368 150 - 400 K/cumm [facility] MPV 9.2 9.1 - 12.3 fL [facility] RBC 2.78(L) 4.30 - 5.80 M/cumm [facility] MCV 95.3 81.3 - 96.4 fL [facility] MCH 32.4 27.1 - 33.3 pg [facility] MCHC 34.0 32.3 - 35.7 g/dL [facility] RDW CV 13.7 11.1 - 14.9 % [facility] RDW SD 47.6 35.7 - 48.1 fL [facility] NRBC abs 0.00 0.00 - 0.01 K/cumm [facility] Blood specimen (specimen) 12/15/2020 9:45 PM CDT 12/15/2020 10:30 PM CDT Corine Hodgson MD LAB BLOOD ORDERABLES Griselda l Result [facility] [place] [address] * (ABNORMAL) Basic metabolic panel (12/15/2020 9:45 PM CDT) Sodium 130(L) 135 - 145 mmol/L [facility] Potassium, pl 4.2 3.3 - 4.9 mmol/L [facility] Chloride 98 97 - 110 mmol/L [facility] CO2 28 22 - 32 mmol/L [facility] Anion gap 4 2 - 15 mmol/L [facility] BUN 14 8 - 25 mg/dL [facility] Creatinine 0.72(L) 0.80 - 1.30 mg/dL [facility] Glucose 142 70 - 199 mg/dL [facility] Comment: Interpretive Data Fasting glucose >/= [...] 2017. Calcium 8.3(L) 8.5 - 10.3 mg/dL [facility] Blood specimen (specimen) 12/15/2020 9:45 PM CDT 12/15/2020 10:29 PM CDT Corine Hodgson MD LAB BLOOD ORDERABLES Griselda l Result Performing Organization Address City/[facility] Co de Phone Number [facility] Department [place] [address] * Phosphorus (12/14/2020 8:37 PM CDT) Phosphorus, pl 3.6 2.3 - 4.5 mg/dL [facility] Blood specimen (specimen) 12/14/2020 8:37 PM CDT 12/14/2020 9:46 PM CDT Corine Hodgson MD LAB BLOOD ORDERABLES Griselda l Result Performing Organization Address [facility] Co de Phone Number [facility] [place] [address] * Magnesium (12/14/2020 8:37 PM CDT) Magnesium 2.0 1.4 - 2.5 mg/dL [facility] Blood specimen (specimen) 12/14/2020 8:37 PM CDT 12/14/2020 9:46 PM CDT Corine Hodgson MD LAB BLOOD ORDERABLES Griselda l Result Performing Organization Address City/[facility] Co de Phone Number [facility] Department [place] [address] * (ABNORMAL) CBC without differential (12/14/2020 8:37 PM CDT) [facility] WBC 8.3 3.8 - 9.9 K/cumm [facility] Hgb 8.5(L) 13.0 - 17.5 g/dL [facility] Hct 25.7(L) 38.9 - 50.3 % [facility] Plt 273 150 - 400 K/cumm [facility] MPV 9.7 9.1 - 12.3 fL [facility] RBC 2.66(L) 4.30 - 5.80 M/cumm [facility] MCV 96.6(H) 81.3 - 96.4 fL [facility] MCH 32.0 27.1 - 33.3 pg [facility] MCHC 33.1 32.3 - 35.7 g/dL [facility] RDW CV 13.6 11.1 - 14.9 % [facility] RDW SD 48.2(H) 35.7 - 48.1 fL [facility] NRBC abs 0.00 0.00 - 0.01 K/cumm [facility] Blood specimen (specimen) 12/14/2020 8:37 PM CDT 12/14/2020 9:47 PM CDT us Corine Hodgson MD LAB BLOOD ORDERABLES Griselda l Result [facility] Department [place] [address] * (ABNORMAL) Basic metabolic panel (12/14/2020 8:37 PM CDT) [facility] Sodium 132(L) 135 - 145 mmol/L [facility] Potassium, pl 4.1 3.3 - 4.9 mmol/L [facility] Chloride 100 97 - 110 mmol/L [facility] CO2 28 22 - 32 mmol/L [facility] Anion gap 4 2 - 15 mmol/L [facility] BUN 15 8 - 25 mg/dL [facility] Creatinine 0.79(L) 0.80 - 1.30 mg/dL [facility] Glucose 118 70 - 199 mg/dL [facility] Comment: Interpretive Data Fasting glucose >/= [...] 2017. Calcium 8.4(L) 8.5 - 10.3 mg/dL [facility] Blood specimen (specimen) 12/14/2020 8:37 PM CDT 12/14/2020 9:46 PM CDT Corine Hodgson MD LAB BLOOD ORDERABLES Griselda l Result [facility] Department [place] [address] * Phosphorus (12/13/2020 8:48 PM CDT) Phosphorus, pl 3.0 2.3 - 4.5 mg/dL [facility] Blood specimen (specimen) 12/13/2020 8:48 PM CDT 12/13/2020 9:26 PM CDT Corine Hodgson MD LAB BLOOD ORDERABLES Griselda l Result [facility] Department [place] [address] * Magnesium (12/13/2020 8:48 PM CDT) Magnesium 2.0 1.4 - 2.5 mg/dL [facility] Blood specimen (specimen) 12/13/2020 8:48 PM CDT 12/13/2020 9:26 PM CDT Corine Hodgson MD LAB BLOOD ORDERABLES Griselda mitchell Result Performing Organization Address [facility] Co de Phone Number [facility] Department [place] [address] * (ABNORMAL) CBC without differential (12/13/2020 8:48 PM CDT) [facility] WBC 9.0 3.8 - 9.9 K/cumm [facility] Hgb 8.4(L) 13.0 - 17.5 g/dL [facility] Hct 24.9(L) 38.9 - 50.3 % [facility] Plt 209 150 - 400 K/cumm [facility] MPV 9.6 9.1 - 12.3 fL [facility] RBC 2.56(L) 4.30 - 5.80 M/cumm [facility] MCV 97.3(H) 81.3 - 96.4 fL [facility] MCH 32.8 27.1 - 33.3 pg [facility] MCHC 33.7 32.3 - 35.7 g/dL [facility] RDW CV 13.8 11.1 - 14.9 % [facility] RDW SD 49.2(H) 35.7 - 48.1 fL [facility] NRBC abs 0.00 0.00 - 0.01 K/cumm [facility] Blood specimen (specimen) 12/13/2020 8:48 PM CDT 12/13/2020 9:26 PM CDT Corine Hodgson MD LAB BLOOD ORDERABLES Griselda mitchell Result Performing Organization Address [facility]/ZIP Co de Phone Number [facility] Department [place] [address] * (ABNORMAL) Basic metabolic panel (12/13/2020 8:48 PM CDT) Sodium 134(L) 135 - 145 mmol/L [facility] Potassium, pl 4.0 3.3 - 4.9 mmol/L [facility] Chloride 100 97 - 110 mmol/L [facility] CO2 28 22 - 32 mmol/L [facility] Anion gap 6 2 - 15 mmol/L [facility] BUN 13 8 - 25 mg/dL [facility] Creatinine 0.80 0.80 - 1.30 mg/dL [facility] Glucose 129 70 - 199 mg/dL [facility] Comment: Interpretive Data Fasting glucose >/= [...] 2017. Calcium 8.3(L) 8.5 - 10.3 mg/dL [facility] Blood specimen (specimen) 12/13/2020 8:48 PM CDT 12/13/2020 9:26 PM CDT us Corine Hodgson MD LAB BLOOD ORDERABLES Griselda l Result [facility] Department [place] [address] * (ABNORMAL) Phosphorus (12/12/2020 10:53 PM CDT) Phosphorus, pl 1.8(L) 2.3 - 4.5 mg/dL [facility] Blood specimen (specimen) 12/12/2020 10:53 PM CDT 12/12/2020 11:29 PM CDT Corine Hodgson MD LAB BLOOD ORDERABLES Griselda l Result Performing Organization Address [facility]/ZIP Co de Phone Number [facility] Department [place] [address] * Magnesium (12/12/2020 10:53 PM CDT) [facility] Magnesium 1.9 1.4 - 2.5 mg/dL [facility] Blood specimen (specimen) 12/12/2020 10:53 PM CDT 12/12/2020 11:29 PM CDT Corine Hodgson MD LAB BLOOD ORDERABLES Griselda l Result Performing Organization Address [facility] Co de Phone Number [facility] Department [place] [address] * (ABNORMAL) CBC without differential (12/12/2020 10:53 PM CDT) [facility] WBC 10.7(H) 3.8 - 9.9 K/cumm [facility] Hgb 8.4(L) 13.0 - 17.5 g/dL [facility] Hct 24.6(L) 38.9 - 50.3 % [facility] Plt 175 150 - 400 K/cumm [facility] MPV 9.4 9.1 - 12.3 fL [facility] RBC 2.54(L) 4.30 - 5.80 M/cumm [facility] MCV 96.9(H) 81.3 - 96.4 fL [facility] MCH 33.1 27.1 - 33.3 pg [facility] MCHC 34.1 32.3 - 35.7 g/dL [facility] RDW CV 13.6 11.1 - 14.9 % [facility] RDW SD 48.5(H) 35.7 - 48.1 fL [facility] NRBC abs 0.00 0.00 - 0.01 K/cumm [facility] Blood specimen (specimen) 12/12/2020 10:53 PM CDT 12/12/2020 11:30 PM CDT Corine Hodgson MD LAB BLOOD ORDERABLES Griselda l Result [facility] Department [place] [address] * (ABNORMAL) Basic metabolic panel (12/12/2020 10:53 PM CDT) Sodium 130(L) 135 - 145 mmol/L [facility] Potassium, pl 4.1 3.3 - 4.9 mmol/L [facility] Chloride 97 97 - 110 mmol/L [facility] CO2 26 22 - 32 mmol/L [facility] Anion gap 7 2 - 15 mmol/L [facility] BUN 11 8 - 25 mg/dL [facility] Creatinine 0.82 0.80 - 1.30 mg/dL [facility] Glucose 109 70 - 199 mg/dL [facility] Comment: Interpretive Data Fasting glucose >/= [...] 2017. Calcium 8.0(L) 8.5 - 10.3 mg/dL [facility] Blood specimen (specimen) 12/12/2020 10:53 PM CDT 12/12/2020 11:29 PM CDT Corine Hodgson MD LAB BLOOD ORDERABLES Griselda l Result Performing Organization Address [facility]/ZIP Co de Phone Number [facility] Department [place] [address] * [place] Fluoroscopy < 1 Hour (12/12/2020 1:59 PM CDT) Narrative [email or web address] - 12/12/2020 1:59 PM CDT The images from this study are not interpreted by Radiology. ??Please refer to the physician's procedure / OR operative note. No Thomas MD IMG FLUOROSCOPY PROCEDURES F inal Result Performing Organization Address City/[facility] Co de Phone Number [email or web address] * Gentamicin level random (12/12/2020 8:36 AM CDT) Pathologist [facility] Gentamicin random <0.3 mcg/mL [facility] Comment: Interpretive Data No reference ranges have been established for random drug levels. Current Interpretive Data was last revised on 2020. Blood specimen (specimen) 12/12/2020 8:36 AM CDT 12/12/2020 8:47 AM CDT Corine Hodgson MD LAB BLOOD ORDERABLES Griselda l Result Performing Organization Address [facility] Co de Phone Number [facility] Department [place] [address] * (ABNORMAL) Phosphorus (12/11/2020 8:43 PM CDT) Pathologist [facility] Phosphorus, pl 1.9(L) 2.3 - 4.5 mg/dL [facility] Blood specimen (specimen) 12/11/2020 8:43 PM CDT 12/11/2020 9:34 PM CDT Corine Hodgson MD LAB BLOOD ORDERABLES Griselda l Result Performing Organization Address [facility] de Phone Number [facility] Department [place] [address] * Magnesium (12/11/2020 8:43 PM CDT) Pathologist [facility] Magnesium 1.7 1.4 - 2.5 mg/dL [facility] Blood specimen (specimen) 12/11/2020 8:43 PM CDT 12/11/2020 9:34 PM CDT Corine Hodgson MD LAB BLOOD ORDERABLES Griselda l Result Performing Organization Address [facility] Co de Phone Number [facility] Department [place] [address] * (ABNORMAL) CBC without differential (12/11/2020 8:43 PM CDT) Pathologist [facility] WBC 12.7(H) 3.8 - 9.9 K/cumm [facility] Hgb 9.3(L) 13.0 - 17.5 g/dL [facility] Hct 27.6(L) 38.9 - 50.3 % [facility] Plt 158 150 - 400 K/cumm [facility] MPV 9.7 9.1 - 12.3 fL [facility] RBC 2.86(L) 4.30 - 5.80 M/cumm [facility] MCV 96.5(H) 81.3 - 96.4 fL [facility] MCH 32.5 27.1 - 33.3 pg [facility] MCHC 33.7 32.3 - 35.7 g/dL [facility] RDW CV 13.5 11.1 - 14.9 % [facility] RDW SD 47.8 35.7 - 48.1 fL [facility] NRBC abs 0.00 0.00 - 0.01 K/cumm [facility] Blood specimen (specimen) 12/11/2020 8:43 PM CDT 12/11/2020 9:35 PM CDT Corine Hodgson MD LAB BLOOD ORDERABLES Griselda l Result Performing Organization Address [facility]/ZIP Co de Phone Number [facility] Department [place] [address] * (ABNORMAL) Basic metabolic panel (12/11/2020 8:43 PM CDT) [facility] Sodium 133(L) 135 - 145 mmol/L [facility] Potassium, pl 4.1 3.3 - 4.9 mmol/L [facility] Chloride 102 97 - 110 mmol/L [facility] CO2 27 22 - 32 mmol/L [facility] Anion gap 4 2 - 15 mmol/L [facility] BUN 8 8 - 25 mg/dL [facility] Creatinine 0.92 0.80 - 1.30 mg/dL [facility] Glucose 125 70 - 199 mg/dL [facility] Comment: Interpretive Data Fasting glucose >/= [...] 2017. Calcium 8.1(L) 8.5 - 10.3 mg/dL [facility] Blood specimen (specimen) 12/11/2020 8:43 PM CDT 12/11/2020 9:34 PM CDT us Corine Hodgson MD LAB BLOOD ORDERABLES Griselda l Result Performing Organization Address City/[facility]/ZIP Co de Phone Number [facility] Department [place] [address] * Phosphorus (12/10/2020 8:36 PM CDT) Pathologist [facility] Phosphorus, pl 2.3 2.3 - 4.5 mg/dL [facility] Blood specimen (specimen) 12/10/2020 8:36 PM CDT 12/10/2020 9:25 PM CDT Corine Hodgson MD LAB BLOOD ORDERABLES Griselda l Result [facility] Department [place] [address] * Magnesium (12/10/2020 8:36 PM CDT) [facility] Magnesium 1.6 1.4 - 2.5 mg/dL [facility] Blood specimen (specimen) 12/10/2020 8:36 PM CDT 12/10/2020 9:25 PM CDT us Corine Hodgson MD LAB BLOOD ORDERABLES Griselda l Result Performing Organization Address [facility] Co de Phone Number [facility] [place] [address] * (ABNORMAL) CBC without differential (12/10/2020 8:36 PM CDT) [facility] WBC 13.0(H) 3.8 - 9.9 K/cumm [facility] Hgb 10.2(L) 13.0 - 17.5 g/dL [facility] 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 Per Yolanda Graf -yulissa- patient had surgery on 12-09-20 Hct 30.4(L) 38.9 - 50.3 % [facility] Plt 204 150 - 400 K/cumm [facility] MPV 10.2 9.1 - 12.3 fL [facility] RBC 3.18(L) 4.30 - 5.80 M/cumm [facility] MCV 95.6 81.3 - 96.4 fL [facility] MCH 32.1 27.1 - 33.3 pg [facility] MCHC 33.6 32.3 - 35.7 g/dL [facility] RDW CV 13.7 11.1 - 14.9 % [facility] RDW SD 48.2(H) 35.7 - 48.1 fL [facility] NRBC abs 0.00 0.00 - 0.01 K/cumm [facility] Blood specimen (specimen) 12/10/2020 8:36 PM CDT 12/10/2020 9:25 PM CDT us Corine Hodgson MD LAB BLOOD ORDERABLES Griselda l Result [facility] Department [place] [address] * (ABNORMAL) Basic metabolic panel (12/10/2020 8:36 PM CDT) Pathologist [facility] Sodium 132(L) 135 - 145 mmol/L [facility] Potassium, pl 4.8 3.3 - 4.9 mmol/L [facility] Comment:Hemolyzed; Potassium value may be falsely elevated by as much as 0.6-1.0 mmol/L. Suggest redraw and reanalysis. Chloride 104 97 - 110 mmol/L [facility] CO2 27 22 - 32 mmol/L [facility] Anion gap 1(L) 2 - 15 mmol/L [facility] BUN 8 8 - 25 mg/dL [facility] Creatinine 0.90 0.80 - 1.30 mg/dL [facility] Glucose 126 70 - 199 mg/dL [facility] Comment: Interpretive Data Fasting glucose >/= [...] 2017. Calcium 8.3(L) 8.5 - 10.3 mg/dL [facility] Blood specimen (specimen) 12/10/2020 8:36 PM CDT 12/10/2020 9:25 PM CDT us Corine Hodgson MD LAB BLOOD ORDERABLES Griselda l Result [facility] Department [place] [address] * Check Sample (12/10/2020 8:36 PM CDT) ABO Rh A Positive [facility] HCLL OTHER 12/10/2020 8:36 PM CDT 12/10/2020 9:33 PM CDT us Corine Hodgson MD LAB BLOOD ORDERABLES Griselda l Result [facility] [place] [address] * CT Maxiliofacial WO Contrast W 3D [...] Vinh Moreno M.D. us Corine Hodgson MD IM CT PROCEDURES Final R esult * CT [...] the foot and ankle. Procedure Note Sergio oWrthy MD - 12/10/2020 EXAMINATION: 1. CT right [...] 3:19 AM CDT) ABO Rh A Positive [facility] Van, indirect Negative [facility] Blood specimen (specimen) 12/10/2020 3:19 AM CDT 12/10/2020 3:31 AM CDT [facility]ative [facility] - 12/10/2020 4:50 AM CDT Has the patient had Daratumumab or Isatuximab in the past 6 months?->Unknown Yaa Fowler MD LAB BLOOD BANK TEST ORDERA BLES Final Result [facility] Department of [place] [address] * XR Ankle Left 3 or More [...] it. Electronically signed by: Obey Nichole M.D. [facility] 12/10/2020 11:17 AM CDT EXAMINATION: XR WRIST [...] 1 Units (12/10/2020 1:25 AM CDT) Pathologist [facility] Product code [id number] [facility] Unit Number [id number] [facility] Product Blood Type APOS [facility] Dispense Status RETURNED [facility] Blood specimen (specimen) 12/10/2020 1:25 AM CDT 12/10/2020 1:25 AM CDT Narrative [facility] - 12/13/2020 7:58 AM CDT Are special requirements needed? (all products are leukoreduced)->No Date required:-20201210 LRRBC # of [id number] Reasons:-Intra-op transfusion} Yaa Fowler MD BLOOD BANK PRODUCT ORDERAB LES Final Result [facility] Department [place] [address] * POCT glucose (12/10/2020 12:10 AM CDT) Pathologist [facility] Glucose, POC 122 70 - 199 mg/dL [facility] Blood specimen (specimen) 12/10/2020 12:10 AM CDT 12/10/2020 12:10 AM CDT Irwin Chi MD LAB POCT ORDERABLES - DEVICE F inal Result Performing Organization Address [facility]/ZIP Co de Phone Number [facility] [place] [address] * (ABNORMAL) POCT glucose (12/09/2020 11:26 PM CDT) Pathologist [facility] Glucose, POC 63(L) 70 - 199 mg/dL [facility] Blood specimen (specimen) 12/09/2020 11:26 PM CDT 12/09/2020 11:26 PM CDT Irwin Chi MD LAB POCT ORDERABLES - DEVICE F inal Result Performing Organization Address [facility] de Phone Number [facility] [place] [address] * (ABNORMAL) Urinalysis, microscopic only (12/09/2020 10:51 PM CDT) [facility] WBC, ur 0-5 0 - 5 /HPF [facility] RBC, ur 0-2 0 - 2 /HPF [facility] Bacteria, ur Trace(A) [facility] Mucous, ur Present(A) [facility] Culture Reflex Comment Reflex conditions for urine culture (WBC >10) not met. [facility] Urine 12/09/2020 10:5 1 PM CDT 12/09/2020 11:13 PM CDT us Stephanie Kennedy MD LAB URINE ORDERABLES Final Resu lt Performing Organization Address [facility] Co de Phone Number [facility] [place] [address] * COVID-19 Coronavirus antigen Nasopharyngeal (12/09/2020 10:51 PM CDT) Pathologist [facility] COVID-19 Ag Presumptive Negative Presumptive Negative [facility] Comment: Interpretive data: Testing was performed under Emergency Use Authorization using the Translimititor System for detection of SARS-CoV-2 nucleocapsid antigen. [...] modified October 2020. Employeed in healthcare? No [facility] status? No [facility] Group care resident? No [facility] Hospitalized? No [facility] Is patient in ICU? No [facility] Symptomatic as defined by CDC? No [facility] Nasopharyngeal 12/09/2020 10 :51 PM CDT 12/09/2020 11:20 PM CDT Narrative [facility] - 12/09/2020 11:46 PM CDT Reason for testing?->Likely to be admitted to semi-private room Yaa Fowler MD LAB MICROBIOLOGY - GENERAL ORDERABLES Final Result [facility] Department [place] [address] * (ABNORMAL) Drugs of Abuse Screen, Urine without Confirmation (12/09/2020 10:51 PM CDT) [facility] Amphetamine, ur Detected(A) CutOff 500ng/mL [facility] Comment: Interpretive Data - Amphetamines: ??Samples containing greater than 500 ng/mL d-methamphetamine ??or other cross-reacting amphetamine compounds are reported as positive. ??Amphetamine immunoassays are subject to significant false positive rates due to cross-reactivity of non-amphetamine drugs. Current Interpretive Data was last reviewed 2018. Barbiturates, ur Not Detected CutOff 200ng/mL [facility] Comment: Interpretive Data - Barbiturates: ??Samples containing [...] Cannabinoids, ur Detected(A) CutOff 50 ng/mL [facility] Comment: Interpretive Data - Cannabinoids: ??Samples containing greater than 50 ng/mL delta-9 THC -COOH or other cross-reacting compounds are reported as positive. ??False positive and false negative results are possible. ?? Current Interpretive Data was last reviewed 2018. Cocaine, ur Detected(A) CutOff 150ng/mL [facility] Comment: Interpretive Data - Cocaine: ??Samples containing [...] 2018. Oxycodone, ur Not Detected CutOff 100ng/mL [facility] Comment: Interpretive Data - Oxycodone: ??Samples containing greater than 100 ng/mL oxycodone or other cross-reacting compounds are reported as positive. ??False positive and false negative results are possible. ?? Current Interpretive Data was last reviewed 2018. Phencyclidine, ur Not Detected CutOff 25 ng/mL [facility] Comment: Interpretive Data - Phencyclidine: ??Samples containing greater than 25 ng/mL phencyclidine or other cross-reacting compounds are reported as positive. ??False positive and false negative results are possible. ?? Current Interpretive Data was last reviewed 2018. Urine Creatinine 220 mg/dL [facility] Comment: Interpretive Data Urine Creatinine: < 10 mg/dL is extremely dilute = or > 10 but < 20 mg/dL is dilute = or > 20 mg/dL is normal Current Interpretive Data was last revised on 2017. Urine 12/09/2020 10:5 1 PM CDT 12/09/2020 11:15 PM CDT Narrative [facility] - 12/10/2020 12:00 AM CDT Drug of Abuse screening is performed by immunoassay for medical purposes only. ??This is not to be used for Pain Management purposes. us Stephanie Kennedy MD LAB URINE ORDERABLES Final Resu lt [facility] [place] [address] * (ABNORMAL) Urinalysis reflex to microscopic and culture Urine (12/09/2020 10:51 PM CDT) Color, ur Yellow Yellow [facility] Clarity, ur Cloudy(A) Clear [facility] Specific gravity, ur 1.007(L) 1.010 - 1.025 [facility] pH, urine 6 [facility] Protein, ur ql 2+(A) Negative [facility] Glucose, ur ql Negative Negative [facility] Ketones, ur Negative Negative [facility] Bilirubin, ur Negative Negative [facility] Blood, ur 2+(A) Negative [facility] Urobilinogen, ur <2.0 <2.0 mg/dL [facility] Nitrite, ur Negative Negative [facility] Leukocyte esterase, ur Negative Negative [facility] UA reflex comment Reflex to microscopic UA will be performed. [facility] Urine 12/09/2020 10:5 1 PM CDT 12/09/2020 11:13 PM CDT Narrative [facility] - 12/10/2020 1:20 AM CDT ?? Urine pH is affected by diet, medications, systemic acid-base disturbances, and renal tubular function. ??pH may affect urinary stone formation. ??For example, urine pH below 6.0 may help reduce the tendency for calcium phosphate stones and pH greater than 6.0 may reduce the tendency for uric acid stone formation. Source: [employer]. Last revised 09-11-2017 us Stephanie Kennedy MD LAB MICROBIOLOGY - GENERAL [facility] Final Result [facility] [place] [address] * XR Ankle Right 3 or More [...] Electronically signed by: Obey Rojelio Dionisio, M.D. us Stephanie Kennedy MD IMG XR [...] XR PROCEDURES Edited Result - Final * ME CRITICAL CARE ILL/INJURED PATIENT INIT 30-74 MIN [...] Obey Nichole M.D. Stephanie Kennedy MD IMG CT PROCEDURES Final Result * POCT creatinine (12/09/2020 7:48 PM CDT) Creatinine POC 1.2 0.7 - 1.3 mg/dL [facility] Blood specimen (specimen) 12/09/2020 7:48 PM CDT 12/09/2020 7:48 PM CDT Notinfile Unknown LAB POCT ORDERABLES - DEVICE F inal Result [facility] [place] [address] * XR Pelvis 1 or 2 Views [...] abs 14.8(H) 1.7 - 6.5 K/cumm [facility] Imm gran abs 0.2(H) 0.0 - 0.1 K/cumm [facility] Lymphocyte abs 2.8 0.8 - 3.3 K/cumm [facility] Monocyte abs 0.9(H) 0.2 - 0.8 K/cumm [facility] Eosinophil abs 0.1 0.0 - 0.5 K/cumm [facility] Basophil abs 0.1 0.0 - 0.1 K/cumm [facility] Neutrophil pct 78.6 % [facility] Comment: Interpretive Data Percent cell count reference ranges are not reported, since discordance with absolute values may lead to misinterpretation of CBC data. Current Interpretive Data was last revised on 2017. Imm gran pct 0.9 % [facility] Comment: Interpretive Data Percent cell count reference ranges are not reported, since discordance with absolute values may lead to misinterpretation of CBC data. Current Interpretive Data was last revised on 2017. Lymphocyte pct 15.0 % [facility] Comment: Interpretive Data Percent cell count reference ranges are not reported, since discordance with absolute values may lead to misinterpretation of CBC data. Current Interpretive Data was last revised on 2017. Monocyte pct 4.5 % [facility] Comment: Interpretive Data Percent cell count reference ranges are not reported, since discordance with absolute values may lead to misinterpretation of CBC data. Current Interpretive Data was last revised on 2017. Eosinophil pct 0.6 % [facility] Comment: Interpretive Data Percent cell count reference ranges are not reported, since discordance with absolute values may lead to misinterpretation of CBC data. Current Interpretive Data was last revised on 2017. Basophil pct 0.4 % [facility] Comment: Interpretive Data Percent cell count reference ranges are not reported, since discordance with absolute values may lead to misinterpretation of CBC data. Current Interpretive Data was last revised on 2017. Blood specimen (specimen) 12/09/2020 7:25 PM CDT 12/09/2020 7:33 PM CDT Stephanie Kennedy MD LAB BLOOD ORDERABLES Final Resu lt Performing Organization Address City/[facility]/ZIP Co de Phone Number [facility] [place] [address] * (ABNORMAL) Ethanol (12/09/2020 7:25 PM CDT) Ethanol 15(H) <=10 mg/dL [facility] Comment: Interpretive Data Legal limit of intoxication > or = 80 mg/dL Levels > or = 400 mg/dL are potentially TOXIC. Current interpretive data was last revised on 2018. Blood specimen (specimen) 12/09/2020 7:25 PM CDT 12/09/2020 7:34 PM CDT Stephanie Kennedy MD LAB BLOOD ORDERABLES Final Resu lt [facility] [place] [address] * (ABNORMAL) aPTT (12/09/2020 7:25 PM CDT) aPTT 26(L) 27 - 37 sec [facility] Comment: Interpretive Data Therapeutic heparin range: 60.0 - 94.0 seconds. Based on correlation with therapeutic heparin activity range of 0.3-0.7 Units/mL. Current interpretive data was last revised on 2020. Blood specimen (specimen) 12/09/2020 7:25 PM CDT 12/09/2020 7:38 PM CDT Stephanie Kennedy MD LAB BLOOD ORDERABLES Final Resu lt [facility] [place] [address] * Protime-INR (12/09/2020 7:25 PM CDT) Pathologist [facility] PT 12.4 9.5 - 13.6 sec [facility] INR 1.1 0.9 - 1.2 [facility] Comment: Interpretive data Oral anticoagulant therapeutic ranges: Venous thromboembolism prophylaxis or treatment: 2.0-3.0 CARDIOLOGY Standard range: 2.0-3.0 High-intensity range: 2.5-3.5 Refer to indication-specific guidelines for appropriate target ranges for prosthetic heart valve replacement. Current interpretive data was last revised on 2019. Blood specimen (specimen) 12/09/2020 7:25 PM CDT 12/09/2020 7:38 PM CDT Stephanie Kennedy MD LAB BLOOD ORDERABLES Final Resu lt [facility] [place] [address] * (ABNORMAL) Comprehensive metabolic panel (12/09/2020 7:25 PM CDT) Pathologist [facility] Sodium 138 135 - 145 mmol/L [facility] Potassium, pl 3.9 3.3 - 4.9 mmol/L [facility] Chloride 105 97 - 110 mmol/L [facility] CO2 25 22 - 32 mmol/L [facility] Anion gap 8 2 - 15 mmol/L [facility] BUN 12 8 - 25 mg/dL [facility] Creatinine 1.16 0.80 - 1.30 mg/dL [facility] Glucose 156 70 - 199 mg/dL [facility] Comment: Interpretive Data Fasting glucose >/= [...] 2017. Calcium 8.6 8.5 - 10.3 mg/dL [facility] Bilirubin, total 0.3 0.1 - 1.2 mg/dL [facility] Protein, pl 6.6 6.5 - 8.5 g/dL [facility] Albumin 3.7 3.5 - 5.0 g/dL [facility] Alk phos 69 40 - 130 Units/L [facility] ALT 96(H) 7 - 55 Units/L [facility] AST 143(H) 10 - 50 Units/L [facility] Blood specimen (specimen) 12/09/2020 7:25 PM CDT 12/09/2020 7:34 PM CDT us Stephanie Kennedy MD LAB BLOOD ORDERABLES Final Resu lt [facility] Department [place] [address] * (ABNORMAL) CBC with auto differential (12/09/2020 7:25 PM CDT) WBC 18.9(H) 3.8 - 9.9 K/cumm [facility] Hgb 13.4 13.0 - 17.5 g/dL [facility] Hct 40.4 38.9 - 50.3 % [facility] Plt 279 150 - 400 K/cumm [facility] MPV 9.0(L) 9.1 - 12.3 fL [facility] RBC 4.19(L) 4.30 - 5.80 M/cumm [facility] MCV 96.4 81.3 - 96.4 fL [facility] MCH 32.0 27.1 - 33.3 pg [facility] MCHC 33.2 32.3 - 35.7 g/dL [facility] RDW CV 13.4 11.1 - 14.9 % [facility] RDW SD 48.0 35.7 - 48.1 fL [facility] NRBC abs 0.00 0.00 - 0.01 K/cumm [facility] Blood specimen (specimen) 12/09/2020 7:25 PM CDT 12/09/2020 7:33 PM CDT us Stephanie Kennedy MD LAB BLOOD ORDERABLES Final Resu lt [facility] [place] [address] documented in this encounter Visit Diagnoses Diagnosis Closed nondisplaced fracture of posterior wall of left acetabulum ([facility])- Primary Pilon fracture of right tibia, closed, initial encounter Open displaced fracture of body of right calcaneus, initial encounter Laceration of left forearm, initial encounter Closed nondisplaced fracture of posterior wall of left acetabulum, initial encounter ([facility]) Type I or II open displaced pilon fracture of right tibia, initial encounter Open fracture of nasal bone, initial encounter Vitreous hemorrhage of left eye ([facility]) ([facility]) Vitreous hemorrhage Closed fracture of neck of right fibula Pilon fracture of right tibia, closed, initial encounter Open displaced fracture of body of right calcaneus Laceration of left forearm Closed displaced fracture of left calcaneus, unspecified [...] Lilia 12/21/20 at 1039, For 1 dose enoxaparin [...] chloride 0.9% irrigation As needed, Starting on Fri12/12/20 at 1317, Intra-Op Given 12/12/2020 1:18 PM CDT 3,000 mL Surgical Site Given 12/12/2020 1:17 PM CDT 1,000 mL An rgical Site sterile water irrigation As needed, Starting on Fri12/12/20 at 1318, Intra-Op Given 12/12/2020 1:18 PM CDT 500 mL Other (Comment) documented in [...] Watson RN)1421 (Given - Provider: Ivan Lynn, RN)1830 (Given - Provider: Ivan Lynn, RN) 0015 (Given - Provider: Radha Ray, YULISSA)0523 (Given - Provider: Radha Ray, YULISSA)1253 (Given - Provider: Jolie Arredondo, YULISSA)1658 (Given - Provider: Jolie Arredondo, RN)2319 (Given - Provider: Radha Ray, YULISSA) 0517 (Given - Provider: Radha Ray RN)1214 (Given - Provider: Noris Rachel, YULISSA) cyclobenzaprine (FLEXERIL) tablet 10 mg 10 mg, oral, 3 times daily, First dose on 12/10/20 at 1600 0957 (Given - Provider: Ivan Lynn, RN)1547 (Given - Provider: Ivan Lynn, RN)2227 (Given - Provider: Radha Ray, YULISSA) 1055 (Given - Provider: Joile Arredondo, YULISSA)1659 (Given - Provider: Jolie Arredondo, YULISSA)2014 (Given - Provider: Radha Ray, YULISSA) 0816 (Given - Provider: Noris Rachel, YULISSA)152 (Given - Provider: Noris Rachel, YULISSA) enoxaparin (LOVENOX) syringe 30 mg 30 mg, subcutaneous, Every 12 hours scheduled, First dose (after last modification) on Fri12/19/20 at 2100, Indications: Deep Vein Thrombosis Prevention 0956 (Given - Provider: Ivan Lynn, YULISSA)222 (Given - Provider: Radha Ray RN) 105 (Given - Provider: Jolie Arredondo, YULISSA)2014 (Given - Provider: Radha Ray, YULISSA) 0817 (Not Given - Provider: Noris Rachel RN - Reason: Patient/family refused) erythromycin (ILOTYCIN) 5 mg/gram (0.5 %) ophthalmic ointment each eye, 2 times daily, First dose on Fri12/18/20 at 1245, Apply 1 cm ribbon. Over facial lacerations 0957 (Given - Provider: Ivan Lynn, YULISSA)222 (Given - Provider: Radha Ray, YULISSA) 105 (Given - Provider: Jolie Arredondo, YULISSA)2014 (Given - Provider: Radha Ray RN) 0818 (Given - Provider: Noris Rachel, YULISSA) gabapentin (NEURONTIN) capsule 300 mg 300 mg, oral, 2 times daily, First dose on 12/10/20 at 2100 0957 (Given - Provider: Ivan Lynn, YULISSA)222 (Given - Provider: Radha Ray RN) 1054 (Given - Provider: Jolie Arredondo, YULISSA)2014 (Given - Provider: Radha Ray, RN) 08 (Given - Provider: Noris Rachel, YULISSA) HYDROmorphone [...] Lynn, RN)2229 (Medication Removed - Provider: Radha Ray, YULISSA) 105 (Not Given - Provider: Jolie Arredondo RN - Reason: Patient/family refused) 08 (Not Given - Provider: Noris Rachel, YULISSA [...] YULISSA)2014 (Given - Provider: Radha Ray, YULISSA) 08 (Given - Provider: Noris Rachel, YULISSA) sodium chloride 0.9% flush 0.5-20 mL 0.5-20 mL, intra-catheter, Every 8 hours scheduled, First dose on 12/10/20 at 0600, Flush volume based on line type and size. 0616 (Given - Provider: Allegra Watson, RN)1548 (Given - Provider: Ivan Lynn, YULISSA)2229 (Given - Provider: Radha Ray, RN) 0525 (Given - Provider: Radha Ray, RN)1254 (Given - Provider: Jolie Arredondo, YULISSA)2014 (Given - Provider: Radha Ray, YULISSA) 05 (Given - Provider: Radha Ray, RN)142 (Not Given - Provider: Noris Rachel RN - Reason: Loss of IV access) white petrolatum 42 % ointment () topical, 3 times daily, First dose on Fri12/13/20 at 0900, For 11 days, Apply to affected area: other, Indications: skin irritation 1046 (Not Given - Provider: Ivan Lynn RN - Reason: Other)1600 (Given - Provider: Ivan Lynn RN)222 (Given - Provider: Radha Ray, RN) PRN Medication Order 12/23/2020 12/24/2020 12/25/2020 droperidoL [...] Watson, RN)0956 (Given - Provider: Ivan Lynn, YULISSA)1547 [...] Aiken, YULISSA)1253 (Given - Provider: Jolie Arredondo, YULISSA)1658 (Given - Provider: Jolie Arredondo, YULISSA)2211 (Given - Provider: Radha Ray, YULISSA) 0420 [...] oxyCODONE (ROXICODONE) tablet 5 mg 3 202012/10/2020 sodium chloride 0.9% irrigation 4 12/10/2020 sterile water irrigation 2 12/21/2020 oxyCODONE (ROXICODONE) tablet 10 mg 1 12/20 [...] chloride 0.9% flush 0.5-20 mL 3 12/0112/10/2020 docusate with cottonseed oil enema 2 202012/17/2020 [...] water (premix) 2,000 mg 2 12/10/2020 12/10/19 21 cyclobenzaprine (FLEXERIL) tablet 10 mg 1 0 [...] IP CONSULT TO ORTHOPEDIC SURGERY 1 12/10/19 21 CORE MEASURES Count Last Ordered Date First [...] 12/10/2020 documented in this encounter Care Teams Staff Analyst Relationship Specialty Start Date End Date Unknown, Notinfile PCP - General 12/09/20 12/24/20 No, Physician 12/09/20 documented as of this encounter
--- OUTSIDE RECORDS SUMMARY | 2024-09-11 03:23 | XMS_ITS | Encounter Summary ---
Author Organization [facility] Healthcare Address [address] [place] [address] Care Team Providers Care Resident Service Coordinator Name Role Phone Unknown, Notinfile Primary Care Provider Unavail able Unknown, Notinfile Primary Care Provider Unavail able No, Physician Unavailable No, Physician Primary Care Provider [phone] Encounter Details Date Type Department Care Team (Latest Contact Info) Description 12/18/2020 Ophth Exam Ophthalmology Ofelia Garcia MD [address] [place] [address] Social History Tobacco Use Types Packs/Day Years Used Date Smoking Tobacco: Every Day Smokeless Tobacco: Never Alcohol Use Standard Drinks/Week Comments Yes 0 (1 standard drink = 0.6 oz pur e alcohol) Sex and Gender Information Value Date Recorded Sex Assigned at Not on file Legal Sex Male 11:16 AM [employer] Gender Identity Not on file Sexual Orientation Not on file documented as of this encounter Plan of Treatment Not on file documented as of this encounter Visit Diagnoses Not on filedocumented in this encounter Eye Exam Visual Acuity Right eye Left eye Near cc 20/20 20/800 Tonometry (Tonopen, 11:43 AM) Right eye Left eye Pressure 14 12 Pupils Dark Light Shape React APD Right eye 3 2 Round Brisk None Left eye 5.5 5.5 Ovoid Nonreactive - by rev erse Visual Doyle Right eye Left eye Full Restrictions Partial outer eaton perior temporal, inferior temporal, superior nasal deficiencies Extraocular Movement Right eye Left eye Full, Ortho Full, Ortho External Exam Right eye Left eye External Normal Periorbital ecch ymosis Slit Lamp Exam Right eye Left eye Lids/Lashes Ecchymosis Ecchymosis, swel ling Conjunctiva/Sclera White and quiet Temporal MARILUZ, improved Cornea Clear, no Epithelial defect Brionna r, no Epithelial defect Anterior Chamber Deep and formed Deep and quiet, Deep Iris Round and reactive ovoid extendi ng ST, NR Lens PCIOL Tr NS Anterior Vitreous Normal Normal Fundus Exam Right eye Left eye Posterior Vitreous hazy view wit h dispersed vit heme, slightly better view Disc dispersed vit he me overlying disc, no pallor, no edema C/D Ratio unable to apprec iate Macula Overlying vit he me, grossly flat, attached Vessels Normal c/c Periphery Overlying vit he me, grossly attached 360, no retinal detachment (RD) on bscan Care Teams Resident Service Coordinator Relationship Specialty Start Date End Date Unknown, Notinfile PCP - General 12/09/20 12/24/20 Unknown, Notinfile PCP - General 12/25/20 02/27/21 No, Physician PCP - General 02/28/21 No, Physician 12/09/20 documented as of this encounter
--- OUTSIDE RECORDS SUMMARY | 2024-09-11 03:23 | XMS_ITS | Encounter Summary ---
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 Comment: Interpretive Data Percent cell count reference ranges are not reported, since discordance with absolute values may lead to misinterpretation of CBC data. Current Interpretive Data was last revised on 2017. Imm gran pct 2.0 % [facility] Comment: Interpretive Data Percent cell count reference ranges are not reported, since discordance with absolute values may lead to misinterpretation of CBC data. Current Interpretive Data was last revised on 2017. Lymphocyte pct 21.2 % [facility] Comment: Interpretive Data Percent cell count reference ranges are not reported, since discordance with absolute values may lead to misinterpretation of CBC data. Current Interpretive Data was last revised on 2017. Monocyte pct 9.7 % [facility] Comment: Interpretive Data Percent cell count reference ranges are not reported, since discordance with absolute values may lead to misinterpretation of CBC data. Current Interpretive Data was last revised on 2017. Eosinophil pct 1.1 % [facility] Comment: Interpretive Data Percent cell count reference ranges are not reported, since discordance with absolute values may lead to misinterpretation of CBC data. Current Interpretive Data was last revised on 2017. Basophil pct 0.9 % [facility] Comment: Interpretive Data Percent cell count reference ranges are not reported, since discordance with absolute values may lead to misinterpretation of CBC data. Current Interpretive Data was last revised on 2017. Blood specimen (specimen) 12/20/2020 11:58 PM CDT 12/21/2020 12:42 AM CDT us Corine Hodgson MD LAB BLOOD ORDERABLES Griselda l Result [facility] Department [place] [address] * (ABNORMAL) CBC with auto differential (12/20/2020 11:58 PM CDT) WBC 11.8(H) 3.8 - 9.9 K/cumm [facility] Hgb 8.8(L) 13.0 - 17.5 g/dL [facility] Hct 26.0(L) 38.9 - 50.3 % [facility] Plt 709(H) 150 - 400 K/cumm [facility] MPV 8.8(L) 9.1 - 12.3 fL [facility] RBC 2.71(L) 4.30 - 5.80 M/cumm [facility] MCV 95.9 81.3 - 96.4 fL [facility] MCH 32.5 27.1 - 33.3 pg [facility] MCHC 33.8 32.3 - 35.7 g/dL [facility] RDW CV 14.4 11.1 - 14.9 % [facility] RDW SD 50.1(H) 35.7 - 48.1 fL [facility] NRBC abs 0.00 0.00 - 0.01 K/cumm [facility] Blood specimen (specimen) 12/20/2020 11:58 PM CDT 12/21/2020 12:42 AM CDT us Corine Hodgson MD LAB BLOOD ORDERABLES Griselda mitchell Result [facility] Department [place] [address] * (ABNORMAL) Basic metabolic panel (12/20/2020 11:58 PM CDT) Sodium 133(L) 135 - 145 mmol/L [facility] Potassium, pl 4.3 3.3 - 4.9 mmol/L [facility] Chloride 99 97 - 110 mmol/L [facility] CO2 28 22 - 32 mmol/L [facility] Anion gap 6 2 - 15 mmol/L [facility] BUN 15 8 - 25 mg/dL [facility] Creatinine 0.86 0.80 - 1.30 mg/dL [facility] Glucose 119 70 - 199 mg/dL [facility] Comment: Interpretive Data Fasting glucose [...] 2017. Calcium 8.3(L) 8.5 - 10.3 mg/dL [facility] Blood specimen (specimen) 12/20/2020 11:58 PM CDT 12/21/2020 12:41 AM CDT us Corine Hodgson MD LAB BLOOD ORDERABLES Griselda l Result [facility] Department [place] [address] * (ABNORMAL) Differential, auto (12/19/2020 10:12 PM CDT) Neutrophil abs 9.1(H) 1.7 - 6.5 K/cumm [facility] Imm gran abs 0.2(H) 0.0 - 0.1 K/cumm [facility] Lymphocyte abs 2.1 0.8 - 3.3 K/cumm [facility] Monocyte abs 0.9(H) 0.2 - 0.8 K/cumm [facility] Eosinophil abs 0.1 0.0 - 0.5 K/cumm [facility] Basophil abs 0.1 0.0 - 0.1 K/cumm [facility] Neutrophil pct 73.0 % [facility] Comment: Interpretive Data Percent cell count reference ranges are not reported, since discordance with absolute values may lead to misinterpretation of CBC data. Current Interpretive Data was last revised on 2017. Imm gran pct 1.4 % [facility] Comment: Interpretive Data Percent cell count reference ranges are not reported, since discordance with absolute values may lead to misinterpretation of CBC data. Current Interpretive Data was last revised on 2017. Lymphocyte pct 17.1 % [facility] Comment: Interpretive Data Percent cell count reference ranges are not reported, since discordance with absolute values may lead to misinterpretation of CBC data. Current Interpretive Data was last revised on 2017. Monocyte pct 7.2 % [facility] Comment: Interpretive Data Percent cell count reference ranges are not reported, since discordance with absolute values may lead to misinterpretation of CBC data. Current Interpretive Data was last revised on 2017. Eosinophil pct 0.6 % [facility] Comment: Interpretive Data Percent cell count reference ranges are not reported, since discordance with absolute values may lead to misinterpretation of CBC data. Current Interpretive Data was last revised on 2017. Basophil pct 0.7 % [facility] Comment: Interpretive Data Percent cell count reference ranges are not reported, since discordance with absolute values may lead to misinterpretation of CBC data. Current Interpretive Data was last revised on 2017. Blood specimen (specimen) 12/19/2020 10:12 PM CDT 12/19/2020 10:57 PM CDT us Caty Zuñiga [employer] LAB BLOOD ORDERABLES Final R esult [facility] Department [place] [address] * (ABNORMAL) CBC with auto differential (12/19/2020 10:12 PM CDT) WBC 12.5(H) 3.8 - 9.9 K/cumm [facility] Hgb 9.5(L) 13.0 - 17.5 g/dL [facility] Hct 29.1(L) 38.9 - 50.3 % [facility] Plt 694(H) 150 - 400 K/cumm [facility] MPV 8.9(L) 9.1 - 12.3 fL [facility] RBC 2.95(L) 4.30 - 5.80 M/cumm [facility] MCV 98.6(H) 81.3 - 96.4 fL [facility] MCH 32.2 27.1 - 33.3 pg [facility] MCHC 32.6 32.3 - 35.7 g/dL [facility] RDW CV 14.5 11.1 - 14.9 % [facility] RDW SD 52.5(H) 35.7 - 48.1 fL [facility] NRBC abs 0.00 0.00 - 0.01 K/cumm [facility] Blood specimen (specimen) 12/19/2020 10:12 PM CDT 12/19/2020 10:57 PM CDT Corine Hodgson MD LAB BLOOD ORDERABLES Griselda l Result Performing Organization Address City/[facility] Co de Phone Number [facility] [place] [address] * Phosphorus (12/19/2020 10:12 PM CDT) Phosphorus, pl 4.4 2.3 - 4.5 mg/dL [facility] Blood specimen (specimen) 12/19/2020 10:12 PM CDT 12/19/2020 10:56 PM CDT Corine Hodgson MD LAB BLOOD ORDERABLES Griselda l Result Performing Organization Address City/[facility] Co de Phone Number [facility] Department [place] [address] * Magnesium (12/19/2020 10:12 PM CDT) Magnesium 2.0 1.4 - 2.5 mg/dL [facility] Blood specimen (specimen) 12/19/2020 10:12 PM CDT 12/19/2020 10:56 PM CDT Corine Hodgson MD LAB BLOOD ORDERABLES Griselda l Result Performing Organization Address City/[facility]/ZIP Co de Phone Number [facility] Department [place] [address] * (ABNORMAL) Basic metabolic panel (12/19/2020 10:12 PM CDT) Sodium 133(L) 135 - 145 mmol/L [facility] Potassium, pl 4.6 3.3 - 4.9 mmol/L [facility] Chloride 101 97 - 110 mmol/L [facility] CO2 27 22 - 32 mmol/L [facility] Anion gap 5 2 - 15 mmol/L [facility] BUN 16 8 - 25 mg/dL [facility] Creatinine 0.82 0.80 - 1.30 mg/dL [facility] Glucose 107 70 - 199 mg/dL [facility] Comment: Interpretive Data Fasting glucose [...] 2017. Calcium 8.5 8.5 - 10.3 mg/dL [facility] Blood specimen (specimen) 12/19/2020 10:12 PM CDT 12/19/2020 10:56 PM CDT us Corine Hodgson MD LAB BLOOD ORDERABLES Griselda mitchell Result [facility] Department [place] [address] * XR Ankle Right 2 Views (12/19/2020 [...] calcaneus. Electronically signed by: Duglas Solomon M.D. us No Thomas MD IMG XR PROCEDURES Final Resu lt * [place] Fluoroscopy < 1 Hour (12/19/2020 4:10 PM CDT) Narrative [facility] - 12/19/2020 4:10 PM CDT The images [...] [facility] Neutrophil pct 68.4 % [facility] Comment: Interpretive Data Percent cell count reference ranges are not reported, since discordance with absolute values may lead to misinterpretation of CBC data. Current Interpretive Data was last revised on 2017. Imm gran pct 2.7 % [facility] Comment: Interpretive Data Percent cell count reference ranges are not reported, since discordance with absolute values may lead to misinterpretation of CBC data. Current Interpretive Data was last revised on 2017. Lymphocyte pct 18.3 % [facility] Comment: Interpretive Data Percent cell count reference ranges are not reported, since discordance with absolute values may lead to misinterpretation of CBC data. Current Interpretive Data was last revised on 2017. Monocyte pct 8.8 % [facility] Comment: Interpretive Data Percent cell count reference ranges are not reported, since discordance with absolute values may lead to misinterpretation of CBC data. Current Interpretive Data was last revised on 2017. Eosinophil pct 1.2 % [facility] Comment: Interpretive Data Percent cell count reference ranges are not reported, since discordance with absolute values may lead to misinterpretation of CBC data. Current Interpretive Data was last revised on 2017. Basophil pct 0.6 % [facility] Comment: Interpretive Data Percent cell count reference ranges are not reported, since discordance with absolute values may lead to misinterpretation of CBC data. Current Interpretive Data was last revised on 2017. Blood specimen (specimen) 12/18/2020 11:12 PM CDT 12/19/2020 12:25 AM CDT Caty Zuñiga [employer] LAB BLOOD ORDERABLES Final R esult [facility] Department [place] [address] * (ABNORMAL) CBC with auto differential (12/18/2020 11:12 PM CDT) WBC 12.5(H) 3.8 - 9.9 K/cumm [facility] Hgb 9.3(L) 13.0 - 17.5 g/dL [facility] Hct 28.3(L) 38.9 - 50.3 % [facility] Plt 629(H) 150 - 400 K/cumm [facility] MPV 9.1 9.1 - 12.3 fL [facility] RBC 2.91(L) 4.30 - 5.80 M/cumm [facility] MCV 97.3(H) 81.3 - 96.4 fL [facility] MCH 32.0 27.1 - 33.3 pg [facility] MCHC 32.9 32.3 - 35.7 g/dL [facility] RDW CV 14.3 11.1 - 14.9 % [facility] RDW SD 49.7(H) 35.7 - 48.1 fL [facility] NRBC abs 0.00 0.00 - 0.01 K/cumm [facility] Blood specimen (specimen) 12/18/2020 11:12 PM CDT 12/19/2020 12:25 AM CDT Corine Hodgson MD LAB BLOOD ORDERABLES Griselda l Result Performing Organization Address City/[facility]/ZIP Co de Phone Number [facility] [place] [address] * Phosphorus (12/18/2020 11:12 PM CDT) [facility] Phosphorus, pl 4.2 2.3 - 4.5 mg/dL [facility] Blood specimen (specimen) 12/18/2020 11:12 PM CDT 12/19/2020 12:25 AM CDT Corine Hodgson MD LAB BLOOD ORDERABLES Griselda l Result Performing Organization Address [facility] Co de Phone Number [facility] [place] [address] * Magnesium (12/18/2020 11:12 PM CDT) [facility] Magnesium 2.1 1.4 - 2.5 mg/dL [facility] Blood specimen (specimen) 12/18/2020 11:12 PM CDT 12/19/2020 12:25 AM CDT Corine Hodgson MD LAB BLOOD ORDERABLES Griselda l Result Performing Organization Address [facility] Co de Phone Number [facility] [place] [address] * (ABNORMAL) Basic metabolic panel (12/18/2020 11:12 PM CDT) [facility] Sodium 134(L) 135 - 145 mmol/L [facility] Potassium, pl 4.3 3.3 - 4.9 mmol/L [facility] Chloride 102 97 - 110 mmol/L [facility] CO2 27 22 - 32 mmol/L [facility] Anion gap 5 2 - 15 mmol/L [facility] BUN 18 8 - 25 mg/dL [facility] Creatinine 0.88 0.80 - 1.30 mg/dL [facility] Glucose 132 70 - 199 mg/dL [facility] Comment: Interpretive Data Fasting glucose [...] 2017. Calcium 8.7 8.5 - 10.3 mg/dL [facility] Blood specimen (specimen) 12/18/2020 11:12 PM CDT 12/19/2020 12:25 AM CDT us Corine Hodgson MD LAB BLOOD ORDERABLES Griselda mitchell Result [facility] Department [place] [address] * (ABNORMAL) Differential, auto (12/18/2020 12:04 AM CDT) Neutrophil abs 7.3(H) 1.7 - 6.5 K/cumm [facility] Imm gran abs 0.4(H) 0.0 - 0.1 K/cumm [facility] Lymphocyte abs 2.4 0.8 - 3.3 K/cumm [facility] Monocyte abs 0.9(H) 0.2 - 0.8 K/cumm [facility] Eosinophil abs 0.2 0.0 - 0.5 K/cumm [facility] Basophil abs 0.1 0.0 - 0.1 K/cumm [facility] Neutrophil pct 64.4 % [facility] Comment: Interpretive Data Percent cell count reference ranges are not reported, since discordance with absolute values may lead to misinterpretation of CBC data. Current Interpretive Data was last revised on 2017. Imm gran pct 3.8 % [facility] Comment: Interpretive Data Percent cell count reference ranges are not reported, since discordance with absolute values may lead to misinterpretation of CBC data. Current Interpretive Data was last revised on 2017. Lymphocyte pct 20.8 % [facility] Comment: Interpretive Data Percent cell count reference ranges are not reported, since discordance with absolute values may lead to misinterpretation of CBC data. Current Interpretive Data was last revised on 2017. Monocyte pct 8.1 % [facility] Comment: Interpretive Data Percent cell count reference ranges are not reported, since discordance with absolute values may lead to misinterpretation of CBC data. Current Interpretive Data was last revised on 2017. Eosinophil pct 2.0 % [facility] Comment: Interpretive Data Percent cell count reference ranges are not reported, since discordance with absolute values may lead to misinterpretation of CBC data. Current Interpretive Data was last revised on 2017. Basophil pct 0.9 % [facility] Comment: Interpretive Data Percent cell count reference ranges are not reported, since discordance with absolute values may lead to misinterpretation of CBC data. Current Interpretive Data was last revised on 2017. Blood specimen (specimen) 12/18/2020 12:04 AM CDT 12/18/2020 1:42 AM CDT us Corine Hodgson MD LAB BLOOD ORDERABLES Griselda mitchell Result [facility] Department [place] [address] * (ABNORMAL) CBC with auto differential (12/18/2020 12:04 AM CDT) WBC 11.3(H) 3.8 - 9.9 K/cumm [facility] Hgb 9.2(L) 13.0 - 17.5 g/dL [facility] Hct 27.9(L) 38.9 - 50.3 % [facility] Plt 572(H) 150 - 400 K/cumm [facility] MPV 9.2 9.1 - 12.3 fL [facility] RBC 2.89(L) 4.30 - 5.80 M/cumm [facility] MCV 96.5(H) 81.3 - 96.4 fL [facility] MCH 31.8 27.1 - 33.3 pg [facility] MCHC 33.0 32.3 - 35.7 g/dL [facility] RDW CV 14.0 11.1 - 14.9 % [facility] RDW SD 49.0(H) 35.7 - 48.1 fL [facility] NRBC abs 0.00 0.00 - 0.01 K/cumm [facility] Blood specimen (specimen) 12/18/2020 12:04 AM CDT 12/18/2020 1:42 AM CDT Corine Hodgson MD LAB BLOOD ORDERABLES Griselda l Result Performing Organization Address City/[facility] Co de Phone Number [facility] Department [place] [address] * Phosphorus (12/18/2020 12:04 AM CDT) Phosphorus, pl 3.8 2.3 - 4.5 mg/dL [facility] Blood specimen (specimen) 12/18/2020 12:04 AM CDT 12/18/2020 1:42 AM CDT Corine Hodgson MD LAB BLOOD ORDERABLES Griselda l Result [facility] [place] [address] * Magnesium (12/18/2020 12:04 AM CDT) Magnesium 2.1 1.4 - 2.5 mg/dL [facility] Blood specimen (specimen) 12/18/2020 12:04 AM CDT 12/18/2020 1:42 AM CDT Corine Hodgson MD LAB BLOOD ORDERABLES Griselda l Result [facility] Department [place] [address] * (ABNORMAL) Basic metabolic panel (12/18/2020 12:04 AM CDT) Sodium 132(L) 135 - 145 mmol/L [facility] Potassium, pl 4.2 3.3 - 4.9 mmol/L [facility] Chloride 99 97 - 110 mmol/L [facility] CO2 26 22 - 32 mmol/L [facility] Anion gap 7 2 - 15 mmol/L [facility] BUN 15 8 - 25 mg/dL [facility] Creatinine 0.73(L) 0.80 - 1.30 mg/dL [facility] Glucose 113 70 - 199 mg/dL [facility] Comment: Interpretive Data Fasting glucose [...] 2017. Calcium 8.5 8.5 - 10.3 mg/dL [facility] Blood specimen (specimen) 12/18/2020 12:04 AM CDT 12/18/2020 1:42 AM CDT us Corine Hodgson MD LAB BLOOD ORDERABLES Griselda l Result [facility] Department [place] [address] * Phosphorus (12/16/2020 10:28 PM CDT) Pathologist [facility] Phosphorus, pl 3.1 2.3 - 4.5 mg/dL [facility] Blood specimen (specimen) 12/16/2020 10:28 PM CDT 12/16/2020 11:27 PM CDT Corine Hodgson MD LAB BLOOD ORDERABLES Griselda l Result Performing Organization Address City/[facility]/ZIP Co de Phone Number [facility] [place] [address] * Magnesium (12/16/2020 10:28 PM CDT) [facility] Magnesium 2.0 1.4 - 2.5 mg/dL [facility] Blood specimen (specimen) 12/16/2020 10:28 PM CDT 12/16/2020 11:27 PM CDT Corine Hodgson MD LAB BLOOD ORDERABLES Griselda l Result Performing Organization Address [facility] de Phone Number [facility] [place] [address] * (ABNORMAL) Basic metabolic panel (12/16/2020 10:28 PM CDT) [facility] Sodium 135 135 - 145 mmol/L [facility] Potassium, pl 4.2 3.3 - 4.9 mmol/L [facility] Chloride 101 97 - 110 mmol/L [facility] CO2 29 22 - 32 mmol/L [facility] Anion gap 5 2 - 15 mmol/L [facility] BUN 14 8 - 25 mg/dL [facility] Creatinine 0.74(L) 0.80 - 1.30 mg/dL [facility] Glucose 121 70 - 199 mg/dL [facility] Comment: Interpretive Data Fasting glucose [...] 2017. Calcium 8.6 8.5 - 10.3 mg/dL [facility] Blood specimen (specimen) 12/16/2020 10:28 PM CDT 12/16/2020 11:27 PM CDT Corine Hodgson MD LAB BLOOD ORDERABLES Griselda l Result Performing Organization Address City/[facility] [place] [address] * Phosphorus (12/15/2020 9:45 PM CDT) Phosphorus, pl 3.7 2.3 - 4.5 mg/dL [facility] Blood specimen (specimen) 12/15/2020 9:45 PM CDT 12/15/2020 10:29 PM CDT Corine Hodgson MD LAB BLOOD ORDERABLES Griselda l Result Performing Organization Address [facility] Co de Phone Number [facility] [place] [place] [address] * Magnesium (12/15/2020 9:45 PM CDT) Magnesium 2.1 1.4 - 2.5 mg/dL [facility] Blood specimen (specimen) 12/15/2020 9:45 PM CDT 12/15/2020 10:29 PM CDT Corine Hodgson MD LAB BLOOD ORDERABLES Griselda l Result Performing Organization Address City/[facility] Co de Phone Number [facility] [place] [place] [address] * (ABNORMAL) CBC without differential (12/15/2020 9:45 PM CDT) [facility] WBC 10.2(H) 3.8 - 9.9 K/cumm [facility] Hgb 9.0(L) 13.0 - 17.5 g/dL [facility] Hct 26.5(L) 38.9 - 50.3 % [facility] Plt 368 150 - 400 K/cumm [facility] MPV 9.2 9.1 - 12.3 fL [facility] RBC 2.78(L) 4.30 - 5.80 M/cumm [facility] MCV 95.3 81.3 - 96.4 fL [facility] MCH 32.4 27.1 - 33.3 pg [facility] MCHC 34.0 32.3 - 35.7 g/dL [facility] RDW CV 13.7 11.1 - 14.9 % [facility] RDW SD 47.6 35.7 - 48.1 fL [facility] NRBC abs 0.00 0.00 - 0.01 K/cumm [facility] Blood specimen (specimen) 12/15/2020 9:45 PM CDT 12/15/2020 10:30 PM CDT Corine Hodgson MD LAB BLOOD ORDERABLES Griselda mitchell Result [facility] Department [place] [address] * (ABNORMAL) Basic metabolic panel (12/15/2020 9:45 PM CDT) [facility] Sodium 130(L) 135 - 145 mmol/L [facility] Potassium, pl 4.2 3.3 - 4.9 mmol/L [facility] Chloride 98 97 - 110 mmol/L [facility] CO2 28 22 - 32 mmol/L [facility] Anion gap 4 2 - 15 mmol/L [facility] BUN 14 8 - 25 mg/dL [facility] Creatinine 0.72(L) 0.80 - 1.30 mg/dL [facility] Glucose 142 70 - 199 mg/dL [facility] Comment: Interpretive Data Fasting glucose [...] 2017. Calcium 8.3(L) 8.5 - 10.3 mg/dL [facility] Blood specimen (specimen) 12/15/2020 9:45 PM CDT 12/15/2020 10:29 PM CDT Corine Hodgson MD LAB BLOOD ORDERABLES Griselda l Result Performing Organization Address City/[facility]/ZIP Co de Phone Number [facility] Department [place] [address] * Phosphorus (12/14/2020 8:37 PM CDT) Phosphorus, pl 3.6 2.3 - 4.5 mg/dL [facility] Blood specimen (specimen) 12/14/2020 8:37 PM CDT 12/14/2020 9:46 PM CDT Corine Hodgson MD LAB BLOOD ORDERABLES Griselda l Result Performing Organization Address City/[facility]/ZIP Co de Phone Number [facility] Department [place] [address] * Magnesium (12/14/2020 8:37 PM CDT) Magnesium 2.0 1.4 - 2.5 mg/dL [facility] Blood specimen (specimen) 12/14/2020 8:37 PM CDT 12/14/2020 9:46 PM CDT Corine Hodgson MD LAB BLOOD ORDERABLES Griselda l Result Performing Organization Address City/[facility]/ZIP Co de Phone Number [facility] Department [place] [address] * (ABNORMAL) CBC without differential (12/14/2020 8:37 PM CDT) Pathologist [facility] WBC 8.3 3.8 - 9.9 K/cumm [facility] Hgb 8.5(L) 13.0 - 17.5 g/dL [facility] Hct 25.7(L) 38.9 - 50.3 % [facility] Plt 273 150 - 400 K/cumm [facility] MPV 9.7 9.1 - 12.3 fL [facility] RBC 2.66(L) 4.30 - 5.80 M/cumm [facility] MCV 96.6(H) 81.3 - 96.4 fL [facility] MCH 32.0 27.1 - 33.3 pg [facility] MCHC 33.1 32.3 - 35.7 g/dL [facility] RDW CV 13.6 11.1 - 14.9 % [facility] RDW SD 48.2(H) 35.7 - 48.1 fL [facility] NRBC abs 0.00 0.00 - 0.01 K/cumm [facility] Blood specimen (specimen) 12/14/2020 8:37 PM CDT 12/14/2020 9:47 PM CDT us Corine Hodgson MD LAB BLOOD ORDERABLES Griselda l Result [facility] [place] [address] * (ABNORMAL) Basic metabolic panel (12/14/2020 8:37 PM CDT) Pathologist [facility] Sodium 132(L) 135 - 145 mmol/L [facility] Potassium, pl 4.1 3.3 - 4.9 mmol/L [facility] Chloride 100 97 - 110 mmol/L [facility] CO2 28 22 - 32 mmol/L [facility] Anion gap 4 2 - 15 mmol/L [facility] BUN 15 8 - 25 mg/dL [facility] Creatinine 0.79(L) 0.80 - 1.30 mg/dL [facility] Glucose 118 70 - 199 mg/dL [facility] Comment: Interpretive Data Fasting glucose [...] 2017. Calcium 8.4(L) 8.5 - 10.3 mg/dL [facility] Blood specimen (specimen) 12/14/2020 8:37 PM CDT 12/14/2020 9:46 PM CDT Corine Hodgson MD LAB BLOOD ORDERABLES Griselda l Result Performing Organization Address City/[facility]/ZIP Co de Phone Number [facility] [place] [address] * Phosphorus (12/13/2020 8:48 PM CDT) Pathologist [facility] Phosphorus, pl 3.0 2.3 - 4.5 mg/dL [facility] Blood specimen (specimen) 12/13/2020 8:48 PM CDT 12/13/2020 9:26 PM CDT Corine Hodgson MD LAB BLOOD ORDERABLES Griselda l Result [facility] Department [place] [address] * Magnesium (12/13/2020 8:48 PM CDT) Pathologist [facility] Magnesium 2.0 1.4 - 2.5 mg/dL [facility] Blood specimen (specimen) 12/13/2020 8:48 PM CDT 12/13/2020 9:26 PM CDT Corine Hodgson MD LAB BLOOD ORDERABLES Griselda l Result Performing Organization Address City/[facility]/ZIP Co de Phone Number [facility] [place] [address] * (ABNORMAL) CBC without differential (12/13/2020 8:48 PM CDT) [facility] WBC 9.0 3.8 - 9.9 K/cumm [facility] Hgb 8.4(L) 13.0 - 17.5 g/dL [facility] Hct 24.9(L) 38.9 - 50.3 % [facility] Plt 209 150 - 400 K/cumm [facility] MPV 9.6 9.1 - 12.3 fL [facility] RBC 2.56(L) 4.30 - 5.80 M/cumm [facility] MCV 97.3(H) 81.3 - 96.4 fL [facility] MCH 32.8 27.1 - 33.3 pg [facility] MCHC 33.7 32.3 - 35.7 g/dL [facility] RDW CV 13.8 11.1 - 14.9 % [facility] RDW SD 49.2(H) 35.7 - 48.1 fL [facility] NRBC abs 0.00 0.00 - 0.01 K/cumm [facility] Blood specimen (specimen) 12/13/2020 8:48 PM CDT 12/13/2020 9:26 PM CDT Corine Hodgson MD LAB BLOOD ORDERABLES Griselda l Result [facility] [place] [address] * (ABNORMAL) Basic metabolic panel (12/13/2020 8:48 PM CDT) Sodium 134(L) 135 - 145 mmol/L [facility] Potassium, pl 4.0 3.3 - 4.9 mmol/L [facility] Chloride 100 97 - 110 mmol/L [facility] CO2 28 22 - 32 mmol/L [facility] Anion gap 6 2 - 15 mmol/L [facility] BUN 13 8 - 25 mg/dL [facility] Creatinine 0.80 0.80 - 1.30 mg/dL [facility] Glucose 129 70 - 199 mg/dL [facility] Comment: Interpretive Data Fasting glucose [...] 2017. Calcium 8.3(L) 8.5 - 10.3 mg/dL [facility] Blood specimen (specimen) 12/13/2020 8:48 PM CDT 12/13/2020 9:26 PM CDT us Corine Hodgson MD LAB BLOOD ORDERABLES Griselda l Result Performing Organization Address City/[facility]/ZIP Co de Phone Number [facility] Department [place] [address] * (ABNORMAL) Phosphorus (12/12/2020 10:53 PM CDT) Pathologist [facility] Phosphorus, pl 1.8(L) 2.3 - 4.5 mg/dL [facility] Blood specimen (specimen) 12/12/2020 10:53 PM CDT 12/12/2020 11:29 PM CDT Corine Hodgson MD LAB BLOOD ORDERABLES Griselda l Result Performing Organization Address City/[facility]/ZIP Co de Phone Number [facility] [place] [address] * Magnesium (12/12/2020 10:53 PM CDT) [facility] Magnesium 1.9 1.4 - 2.5 mg/dL [facility] Blood specimen (specimen) 12/12/2020 10:53 PM CDT 12/12/2020 11:29 PM CDT Corine Hodgson MD LAB BLOOD ORDERABLES Griselda l Result Performing Organization Address [facility] Co de Phone Number [facility] [place] [address] * (ABNORMAL) CBC without differential (12/12/2020 10:53 PM CDT) [facility] WBC 10.7(H) 3.8 - 9.9 K/cumm [facility] Hgb 8.4(L) 13.0 - 17.5 g/dL [facility] Hct 24.6(L) 38.9 - 50.3 % [facility] Plt 175 150 - 400 K/cumm [facility] MPV 9.4 9.1 - 12.3 fL [facility] RBC 2.54(L) 4.30 - 5.80 M/cumm [facility] MCV 96.9(H) 81.3 - 96.4 fL [facility] MCH 33.1 27.1 - 33.3 pg [facility] MCHC 34.1 32.3 - 35.7 g/dL [facility] RDW CV 13.6 11.1 - 14.9 % [facility] RDW SD 48.5(H) 35.7 - 48.1 fL [facility] NRBC abs 0.00 0.00 - 0.01 K/cumm [facility] Blood specimen (specimen) 12/12/2020 10:53 PM CDT 12/12/2020 11:30 PM CDT Corine Hodgson MD LAB BLOOD ORDERABLES Griselda l Result Performing Organization Address [facility] Co de Phone Number [facility] Department [place] [address] * (ABNORMAL) Basic metabolic panel (12/12/2020 10:53 PM CDT) Pathologist [facility] Sodium 130(L) 135 - 145 mmol/L [facility] Potassium, pl 4.1 3.3 - 4.9 mmol/L [facility] Chloride 97 97 - 110 mmol/L [facility] CO2 26 22 - 32 mmol/L [facility] Anion gap 7 2 - 15 mmol/L [facility] BUN 11 8 - 25 mg/dL [facility] Creatinine 0.82 0.80 - 1.30 mg/dL [facility] Glucose 109 70 - 199 mg/dL [facility] Comment: Interpretive Data Fasting glucose [...] 2017. Calcium 8.0(L) 8.5 - 10.3 mg/dL [facility] Blood specimen (specimen) 12/12/2020 10:53 PM CDT 12/12/2020 11:29 PM CDT Corine Hodgson MD LAB BLOOD ORDERABLES Griselda l Result Performing Organization Address City/[facility] Co de Phone Number [facility] [place] [place] [address] * [place] Fluoroscopy < 1 Hour (12/12/2020 1:59 PM CDT) Narrative [email or web address] - 12/12/2020 1:59 PM CDT The images from this study are not interpreted by Radiology. ??Please refer to the physician's procedure / OR operative note. No Thomas MD IMG FLUOROSCOPY PROCEDURES F inal Result Performing Organization Address [facility] Co de Phone Number [email or web address] * Gentamicin level random (12/12/2020 8:36 AM CDT) Gentamicin random <0.3 mcg/mL [facility] Comment: Interpretive Data No reference ranges have been established for random drug levels. Current Interpretive Data was last revised on 2020. Blood specimen (specimen) 12/12/2020 8:36 AM CDT 12/12/2020 8:47 AM CDT Corine Hodgson MD LAB BLOOD ORDERABLES Griselda l Result Performing Organization Address [facility] de Phone Number [facility] [place] [place] [address] * (ABNORMAL) Phosphorus (12/11/2020 8:43 PM CDT) Phosphorus, pl 1.9(L) 2.3 - 4.5 mg/dL [facility] Blood specimen (specimen) 12/11/2020 8:43 PM CDT 12/11/2020 9:34 PM CDT Corine Hodgson MD LAB BLOOD ORDERABLES Griselda l Result Performing Organization Address [facility] Co de Phone Number [facility] Department [place] [address] * Magnesium (12/11/2020 8:43 PM CDT) Pathologist [facility] Magnesium 1.7 1.4 - 2.5 mg/dL [facility] Blood specimen (specimen) 12/11/2020 8:43 PM CDT 12/11/2020 9:34 PM CDT Corine Hodgson MD LAB BLOOD ORDERABLES Griselda l Result Performing Organization Address City/[facility] Co de Phone Number [facility] [place] [address] * (ABNORMAL) CBC without differential (12/11/2020 8:43 PM CDT) Pathologist [facility] WBC 12.7(H) 3.8 - 9.9 K/cumm [facility] Hgb 9.3(L) 13.0 - 17.5 g/dL [facility] Hct 27.6(L) 38.9 - 50.3 % [facility] Plt 158 150 - 400 K/cumm [facility] MPV 9.7 9.1 - 12.3 fL [facility] RBC 2.86(L) 4.30 - 5.80 M/cumm [facility] MCV 96.5(H) 81.3 - 96.4 fL [facility] MCH 32.5 27.1 - 33.3 pg [facility] MCHC 33.7 32.3 - 35.7 g/dL [facility] RDW CV 13.5 11.1 - 14.9 % [facility] RDW SD 47.8 35.7 - 48.1 fL [facility] NRBC abs 0.00 0.00 - 0.01 K/cumm [facility] Blood specimen (specimen) 12/11/2020 8:43 PM CDT 12/11/2020 9:35 PM CDT Corine Hodgson MD LAB BLOOD ORDERABLES Griselda l Result [facility] Department [place] [address] * (ABNORMAL) Basic metabolic panel (12/11/2020 8:43 PM CDT) Sodium 133(L) 135 - 145 mmol/L [facility] Potassium, pl 4.1 3.3 - 4.9 mmol/L [facility] Chloride 102 97 - 110 mmol/L [facility] CO2 27 22 - 32 mmol/L [facility] Anion gap 4 2 - 15 mmol/L [facility] BUN 8 8 - 25 mg/dL [facility] Creatinine 0.92 0.80 - 1.30 mg/dL [facility] Glucose 125 70 - 199 mg/dL [facility] Comment: Interpretive Data Fasting glucose [...] 2017. Calcium 8.1(L) 8.5 - 10.3 mg/dL [facility] Blood specimen (specimen) 12/11/2020 8:43 PM CDT 12/11/2020 9:34 PM CDT us Corine Hodgson MD LAB BLOOD ORDERABLES Griselda l Result [facility] Department [place] [address] * Phosphorus (12/10/2020 8:36 PM CDT) Phosphorus, pl 2.3 2.3 - 4.5 mg/dL [facility] Blood specimen (specimen) 12/10/2020 8:36 PM CDT 12/10/2020 9:25 PM CDT Corine Hodgson MD LAB BLOOD ORDERABLES Griselda l Result Performing Organization Address City/[facility] Co de Phone Number [facility] [place] [address] * Magnesium (12/10/2020 8:36 PM CDT) Pathologist [facility] Magnesium 1.6 1.4 - 2.5 mg/dL [facility] Blood specimen (specimen) 12/10/2020 8:36 PM CDT 12/10/2020 9:25 PM CDT Corine Hodgson MD LAB BLOOD ORDERABLES Griselda l Result Performing Organization Address [facility] de Phone Number [facility] Department [place] [address] * (ABNORMAL) CBC without differential (12/10/2020 8:36 PM CDT) [facility] WBC 13.0(H) 3.8 - 9.9 K/cumm [facility] Hgb 10.2(L) 13.0 - 17.5 g/dL [facility] 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 Per Yolanda Graf -yulissa- patient had surgery on 12-09-20 Hct 30.4(L) 38.9 - 50.3 % [facility] Plt 204 150 - 400 K/cumm [facility] MPV 10.2 9.1 - 12.3 fL [facility] RBC 3.18(L) 4.30 - 5.80 M/cumm [facility] MCV 95.6 81.3 - 96.4 fL [facility] MCH 32.1 27.1 - 33.3 pg [facility] MCHC 33.6 32.3 - 35.7 g/dL [facility] RDW CV 13.7 11.1 - 14.9 % [facility] RDW SD 48.2(H) 35.7 - 48.1 fL [facility] NRBC abs 0.00 0.00 - 0.01 K/cumm [facility] Blood specimen (specimen) 12/10/2020 8:36 PM CDT 12/10/2020 9:25 PM CDT us Corine Hodgson MD LAB BLOOD ORDERABLES Griselda stephen Result [facility] Department [place] [address] * (ABNORMAL) Basic metabolic panel (12/10/2020 8:36 PM CDT) Sodium 132(L) 135 - 145 mmol/L [facility] Potassium, pl 4.8 3.3 - 4.9 mmol/L [facility] Comment:Hemolyzed; Potassium value may be falsely elevated by as much as 0.6-1.0 mmol/L. Suggest redraw and reanalysis. Chloride 104 97 - 110 mmol/L [facility] CO2 27 22 - 32 mmol/L [facility] Anion gap 1(L) 2 - 15 mmol/L [facility] BUN 8 8 - 25 mg/dL [facility] Creatinine 0.90 0.80 - 1.30 mg/dL [facility] Glucose 126 70 - 199 mg/dL [facility] Comment: Interpretive Data Fasting glucose [...] 2017. Calcium 8.3(L) 8.5 - 10.3 mg/dL [facility] Blood specimen (specimen) 12/10/2020 8:36 PM CDT 12/10/2020 9:25 PM CDT us Corine Hodgson MD LAB BLOOD ORDERABLES Griselda l Result Performing Organization Address City/[facility]/ZIP Co de Phone Number [facility] [place] [place] [address] * Check Sample (12/10/2020 8:36 PM CDT) ABO Rh A Positive [facility] HCLL OTHER 12/10/2020 8:36 PM CDT 12/10/2020 9:33 PM CDT us Corine Hodsgon MD LAB BLOOD ORDERABLES Griselda l Result Performing Organization Address [facility] [facility] Co de Phone Number [facility] [place] [address] * CT Maxiliofacial WO Contrast W 3D [...] Positive [facility] Van, indirect Negative [facility] Blood specimen (specimen) 12/10/2020 3:19 AM CDT 12/10/2020 3:31 AM CDT Narrative [facility] - 12/10/2020 4:50 AM CDT Has the patient had Daratumumab or Isatuximab in the past 6 months?->Unknown Yaa Fowler MD LAB BLOOD BANK TEST ORDERA BLES Final Result [facility] Department [place] [address] * XR Ankle Left 3 or More [...] left fifth metatarsal base fracture. Dictated by: rPimo Moreno M.D. The radiology [...] RBC: 1 Units (12/10/2020 1:25 AM CDT) [facility] Product code [id number] [facility] Unit Number [id number] [id number] [facility] Product Blood Type APOS [facility] Dispense Status RETURNED [facility] Blood specimen (specimen) 12/10/2020 1:25 AM CDT 12/10/2020 1:25 AM CDT Narrative [facility] - 12/13/2020 7:58 AM CDT Are special requirements needed? (all products are leukoreduced)->No Date required:-20201210 LRRBC # of [id number] Reasons:-Intra-op transfusion} us Yaa Fowler MD BLOOD BANK PRODUCT ORDERAB LES Final Result [facility] [place] [address] * POCT glucose (12/10/2020 12:10 AM CDT) [facility] Glucose, POC 122 70 - 199 mg/dL [facility] Blood specimen (specimen) 12/10/2020 12:10 AM CDT 12/10/2020 12:10 AM CDT Irwin Chi MD LAB POCT ORDERABLES - DEVICE F inal Result Performing Organization Address [facility] de Phone Number [facility] [place] [address] * (ABNORMAL) POCT glucose (12/09/2020 11:26 PM CDT) Glucose, POC 63(L) 70 - 199 mg/dL [facility] Blood specimen (specimen) 12/09/2020 11:26 PM CDT 12/09/2020 11:26 PM CDT Irwin Chi MD LAB POCT ORDERABLES - DEVICE F inal Result Performing Organization Address [facility] de Phone Number [facility] [place] [address] * (ABNORMAL) Urinalysis, microscopic only (12/09/2020 10:51 PM CDT) Pathologist [facility] WBC, ur 0-5 0 - 5 /HPF [facility] RBC, ur 0-2 0 - 2 /HPF [facility] Bacteria, ur Trace(A) [facility] Mucous, ur Present(A) [facility] Culture Reflex Comment Reflex conditions for urine culture (WBC >10) not met. [facility] Urine 12/09/2020 10:5 1 PM CDT 12/09/2020 11:13 PM CDT Stephanie Kennedy MD LAB URINE ORDERABLES Final Resu lt Performing Organization Address [facility] de Phone Number [facility] [place] [address] * COVID-19 Coronavirus antigen Nasopharyngeal (12/09/2020 10:51 PM CDT) Pathologist [facility] COVID-19 Ag Presumptive Negative Presumptive Negative [facility] Comment: Interpretive data: Testing was performed under Emergency Use Authorization using the [employer] System for detection of SARS-CoV-2 nucleocapsid antigen. [...] modified October 2020. Employeed in healthcare? No [facility] status? No [facility] Group care resident? No [facility] Hospitalized? No [facility] Is patient in ICU? No [facility] Symptomatic as defined by CDC? No [facility] Nasopharyngeal 12/09/2020 10 :51 PM CDT 12/09/2020 11:20 PM CDT Narrative [facility] - 12/09/2020 11:46 PM CDT Reason for testing?->Likely to be admitted to semi-private room us Yaa Fowler MD LAB MICROBIOLOGY - GENERAL ORDERABLES Final Result [facility] [place] [address] * (ABNORMAL) Drugs of Abuse Screen, Urine without Confirmation (12/09/2020 10:51 PM CDT) Pathologist [facility] Amphetamine, ur Detected(A) CutOff 500ng/mL [facility] Comment: Interpretive Data - Amphetamines: ??Samples containing greater than 500 ng/mL d-methamphetamine ??or other cross-reacting amphetamine compounds are reported as positive. ??Amphetamine immunoassays are subject to significant false positive rates due to cross-reactivity of non-amphetamine drugs. Current Interpretive Data was last reviewed 2018. Barbiturates, ur Not Detected CutOff 200ng/mL [facility] Comment: Interpretive Data - Barbiturates: ??Samples containing greater than 200 ng/mL secobarbital or other cross-reacting barbiturate compounds are reported as positive. ??False positive and false negative results are possible. Current Interpretive Data was last reviewed 2018. Benzodiazepines, ur Not Detected CutOff 100ng/mL [facility] Comment: Interpretive Data - Benzodiazepines: ??Samples containing greater than 100 ng/mL nordiazepam or other cross-reacting compounds are reported as positive. ?? False positive and false negative results are possible. ?? Current Interpretive Data was last reviewed 2018. Cannabinoids, ur Detected(A) CutOff 50 ng/mL [facility] Comment: Interpretive Data - Cannabinoids: ??Samples containing greater than 50 ng/mL delta-9 THC -COOH or other cross-reacting compounds are reported as positive. ??False positive and false negative results are possible. ?? Current Interpretive Data was last reviewed 2018. Cocaine, ur Detected(A) CutOff 150ng/mL [facility] Comment: Interpretive Data - Cocaine: ??Samples containing greater than 150 ng/mL benzoylecgonine or other cross-reacting compounds are reported as positive. False positive and false negative results are possible. Current Interpretive Data was last reviewed 2018. Fentanyl, Ur Detected(A) Cutoff 1 ng/mL [facility] Comment: Interpretive Data - Fentanyls: ??Samples [...] 2018. Opiates, ur Not Detected CutOff 300ng/mL [facility] Comment: Interpretive Data - Opiates: ??Samples containing greater than 300 ng/mL morphine or other cross-reacting compounds are reported as positive. ??False positive and false negative results are possible. Current Interpretive Data was last reviewed 2018. Oxycodone, ur Not Detected CutOff 100ng/mL [facility] Comment: Interpretive Data - Oxycodone: ??Samples containing greater than 100 ng/mL oxycodone or other cross-reacting compounds are reported as positive. ??False positive and false negative results are possible. ?? Current Interpretive Data was last reviewed 2018. Phencyclidine, ur Not Detected CutOff 25 ng/mL [facility] Comment: Interpretive Data - Phencyclidine: ??Samples containing greater than 25 ng/mL phencyclidine or other cross-reacting compounds are reported as positive. ??False positive and false negative results are possible. ?? Current Interpretive Data was last reviewed 2018. Urine Creatinine 220 mg/dL [facility] Comment: Interpretive Data Urine Creatinine: < 10 mg/dL is extremely dilute = or > 10 but < 20 mg/dL is dilute = or > 20 mg/dL is normal Current Interpretive Data was last revised on 2017. Urine 12/09/2020 10:5 1 PM CDT 12/09/2020 11:15 PM CDT Narrative [facility] - 12/10/2020 12:00 AM CDT Drug of Abuse screening is performed by immunoassay for medical purposes only. ??This is not to be used for Pain Management purposes. us Stephanie Kennedy MD LAB URINE ORDERABLES Final Resu lt [facility] Department [place] [address] * (ABNORMAL) Urinalysis reflex to microscopic and culture Urine (12/09/2020 10:51 PM CDT) Color, ur Yellow Yellow [facility] Clarity, ur Cloudy(A) Clear [facility] Specific gravity, ur 1.007(L) 1.010 - 1.025 [facility] pH, urine 6 [facility] Protein, ur ql 2+(A) Negative [facility] Glucose, ur ql Negative Negative [facility] Ketones, ur Negative Negative [facility] Bilirubin, ur Negative Negative [facility] Blood, ur 2+(A) Negative [facility] Urobilinogen, ur <2.0 <2.0 mg/dL [facility] Nitrite, ur Negative Negative [facility] Leukocyte esterase, ur Negative Negative [facility] UA reflex comment Reflex to microscopic UA will be performed. [facility] Urine 12/09/2020 10:5 1 PM CDT 12/09/2020 11:13 PM CDT Narrative [facility] - 12/10/2020 1:20 AM CDT ?? Urine pH is affected by diet, medications, systemic acid-base disturbances, and renal tubular function. ??pH may affect urinary stone formation. ??For example, urine pH below 6.0 may help reduce the tendency for calcium phosphate stones and pH greater than 6.0 may reduce the tendency for uric acid stone formation. Source: [employer]. Last revised 09-11-2017 us Stephanie Kennedy MD LAB MICROBIOLOGY - GENERAL JENNIFER NATHAN Final Result [facility] Department [place] [address] * XR Ankle Right 3 or More [...] 5 PM CDT Addenda Addendum by Obey Nicohle MD on 03/14/2021 8:54 AM CDT Patient [...] visits. ??Mary YADAV, RN. Edited by: Mary aSavedra Electronically signed by: Obey Nichole M.D. Impressions [...] XR PROCEDURES Edited Result - Final * SD CRITICAL CARE ILL/INJURED PATIENT INIT 30-74 MIN [...] documenting in the medical record. us Ginette uMñoz MD IN CLINIC/BEDSIDE ORDERABLES Edited Result - [...] Creatinine POC 1.2 0.7 - 1.3 mg/dL [facility] Blood specimen (specimen) 12/09/2020 7:48 PM CDT 12/09/2020 7:48 PM CDT us Notinfile Unknown LAB POCT ORDERABLES - DEVICE F inal Result [facility] Department [place] [address] * XR Pelvis 1 or 2 Views [...] abs 0.1 0.0 - 0.5 K/cumm [facility] Basophil abs 0.1 0.0 - 0.1 K/cumm [facility] Neutrophil pct 78.6 % [facility] Comment: Interpretive Data Percent cell count reference ranges are not reported, since discordance with absolute values may lead to misinterpretation of CBC data. Current Interpretive Data was last revised on 2017. Imm gran pct 0.9 % [facility] Comment: Interpretive Data Percent cell count reference ranges are not reported, since discordance with absolute values may lead to misinterpretation of CBC data. Current Interpretive Data was last revised on 2017. Lymphocyte pct 15.0 % [facility] Comment: Interpretive Data Percent cell count reference ranges are not reported, since discordance with absolute values may lead to misinterpretation of CBC data. Current Interpretive Data was last revised on 2017. Monocyte pct 4.5 % [facility] Comment: Interpretive Data Percent cell count reference ranges are not reported, since discordance with absolute values may lead to misinterpretation of CBC data. Current Interpretive Data was last revised on 2017. Eosinophil pct 0.6 % [facility] Comment: Interpretive Data Percent cell count reference ranges are not reported, since discordance with absolute values may lead to misinterpretation of CBC data. Current Interpretive Data was last revised on 2017. Basophil pct 0.4 % [facility] Comment: Interpretive Data Percent cell count reference ranges are not reported, since discordance with absolute values may lead to misinterpretation of CBC data. Current Interpretive Data was last revised on 2017. Blood specimen (specimen) 12/09/2020 7:25 PM CDT 12/09/2020 7:33 PM CDT Stephanie Kennedy MD LAB BLOOD ORDERABLES Final Resu lt [facility] [place] [address] * (ABNORMAL) Ethanol (12/09/2020 7:25 PM CDT) Ethanol 15(H) <=10 mg/dL [facility] Comment: Interpretive Data Legal limit of intoxication > or = 80 mg/dL Levels > or = 400 mg/dL are potentially TOXIC. Current interpretive data was last revised on 2018. Blood specimen (specimen) 12/09/2020 7:25 PM CDT 12/09/2020 7:34 PM CDT Stephanie Kennedy MD LAB BLOOD ORDERABLES Final Resu lt Performing Organization Address [facility] [place] [address] * (ABNORMAL) aPTT (12/09/2020 7:25 PM CDT) aPTT 26(L) 27 - 37 sec [facility] Comment: Interpretive Data Therapeutic heparin range: 60.0 - 94.0 seconds. Based on correlation with therapeutic heparin activity range of 0.3-0.7 Units/mL. Current interpretive data was last revised on 2020. Blood specimen (specimen) 12/09/2020 7:25 PM CDT 12/09/2020 7:38 PM CDT Stephanie Kennedy MD LAB BLOOD ORDERABLES Final Resu lt Performing Organization Address [facility] [place] [address] * Protime-INR (12/09/2020 7:25 PM CDT) PT 12.4 9.5 - 13.6 sec [facility] INR 1.1 0.9 - 1.2 [facility] Comment: Interpretive data Oral anticoagulant [...] Resu lt Performing Organization Address [facility] [place] [address] * (ABNORMAL) Comprehensive metabolic panel (12/09/2020 7:25 PM CDT) Sodium 138 135 - 145 mmol/L [facility] Potassium, pl 3.9 3.3 - 4.9 mmol/L [facility] Chloride 105 97 - 110 mmol/L [facility] CO2 25 22 - 32 mmol/L [facility] Anion gap 8 2 - 15 mmol/L [facility] BUN 12 8 - 25 mg/dL [facility] Creatinine 1.16 0.80 - 1.30 mg/dL [facility] Glucose 156 70 - 199 mg/dL [facility] Comment: Interpretive Data Fasting glucose [...] 2017. Calcium 8.6 8.5 - 10.3 mg/dL [facility] Bilirubin, total 0.3 0.1 - 1.2 mg/dL [facility] Protein, pl 6.6 6.5 - 8.5 g/dL [facility] Albumin 3.7 3.5 - 5.0 g/dL [facility] Alk phos 69 40 - 130 Units/L [facility] ALT 96(H) 7 - 55 Units/L [facility] AST 143(H) 10 - 50 Units/L [facility] Blood specimen (specimen) 12/09/2020 7:25 PM CDT 12/09/2020 7:34 PM CDT us Stephanie Kennedy MD LAB BLOOD ORDERABLES Final Resu lt [facility] Department [place] [address] * (ABNORMAL) CBC with auto differential (12/09/2020 7:25 PM CDT) Pathologist [facility] WBC 18.9(H) 3.8 - 9.9 K/cumm [facility] Hgb 13.4 13.0 - 17.5 g/dL [facility] Hct 40.4 38.9 - 50.3 % [facility] Plt 279 150 - 400 K/cumm [facility] MPV 9.0(L) 9.1 - 12.3 fL [facility] RBC 4.19(L) 4.30 - 5.80 M/cumm [facility] MCV 96.4 81.3 - 96.4 fL [facility] MCH 32.0 27.1 - 33.3 pg [facility] MCHC 33.2 32.3 - 35.7 g/dL [facility] RDW CV 13.4 11.1 - 14.9 % [facility] RDW SD 48.0 35.7 - 48.1 fL [facility] NRBC abs 0.00 0.00 - 0.01 K/cumm [facility] Blood specimen (specimen) 12/09/2020 7:25 PM CDT 12/09/2020 7:33 PM CDT us Stephanie Kennedy MD LAB BLOOD ORDERABLES Final Resu lt [facility] [place] [address] documented in this encounter Visit Diagnoses Diagnosis Closed nondisplaced fracture of posterior wall of left acetabulum ([facility])- Primary Pilon fracture of right tibia, closed, initial encounter Open displaced fracture of body of right calcaneus, initial encounter Laceration of left forearm, initial encounter Closed nondisplaced fracture of posterior wall of left acetabulum, initial encounter ([facility]) Type I or II open displaced pilon fracture of right tibia, initial encounter Open fracture of nasal bone, initial encounter Vitreous hemorrhage of left eye (CMS/HCC) ([facility]) Vitreous hemorrhage Closed fracture of neck of right fibula Pilon fracture of right tibia, closed, initial encounter Open displaced fracture of body of right calcaneus Laceration of left forearm Closed displaced pilon fracture of right tibia, initial encounter documented in this encounter Admitting [...] chloride 0.9% irrigation As needed, Starting on Fri12/19/20 at 1451, Intra-Op Given 12/19/2020 2:57 PM CDT 3,000 mL Surgical Site Given 12/19/2020 2:51 PM CDT 1,000 mL An rgical Site sterile water irrigation As needed, Starting on Fri12/19/20 at 1451, Intra-Op Given 12/19/2020 2:51 PM CDT 500 mL Other (Comment) documented [...] Lynn, YULISSA)1830 (Given - Provider: Ivan Lynn, RN) 0015 (Given - Provider: Radha aRy, YULISSA)0523 (Given - Provider: Radha Ray, YULISSA)1253 [...] YULISSA) 105 (Given - Provider: Jolie Arredondo, YULISSA)165 (Given - Provider: Jolie Arredondo, YULISSA)2014 (Given - Provider: Radha Ray, YULISSA) 0816 (Given - Provider: Noris Rachel, YULISSA)1526 (Given - Provider: Noris Rachel, YULISSA) enoxaparin [...] facial lacerations 0957 (Given - Provider: Ivan Lynn RN)2226 (Given - Provider: Radha Ray RN) 105 (Given - Provider: Jolie Arredondo, YULISSA)2014 (Given - Provider: Radha Ray, YULISSA) 0818 (Given - Provider: Noris Rachel, YULISSA) gabapentin (NEURONTIN) capsule 300 mg 300 mg, oral, 2 times daily, First dose on Fri12/10/20 at 2100 0957 (Given - Provider: Ivan Lynn, YULISSA)2226 (Given - Provider: Radha Ray, YULISSA) 105 (Given - Provider: Jolie Arredondo, YULISSA)2014 (Given - Provider: Radha Ray, YULISSA) 08 (Given - Provider: Noris Rachel, YULISSA) HYDROmorphone (DILAUDID) injection 0.5 mg (COMPLETED) 0.5 mg, intravenous, Administer over 2 Minutes, Once, On Fri12/25/20 at 0545, For 1 dose, Indications: Pain uncontrolled by oral medication 05 (Given - Provider: Radha Ray, YULISSA) lidocaine (LIDODERM) 5 % patch 1 patch 1 patch, transdermal, Administer over 12 Hours, Daily, First dose on 12/10/20 at 0515, Do not cover the holes on the top side of the patch., Apply to affected area: chest 0957 (Medication Applied - Provider: Ivan Lynn, RN)2228 (Medication Removed - Provider: Radha Ray, YULISSA) 105 (Not Given - Provider: Jolie Arredondo, YULISSA - Reason: Patient/family refused) 08 (Not Given [...] Ivan Lynn, YULISSA)2226 (Given - Provider: Radha Ray, YULISSA) 1054 (Given - Provider: Jolie Arredondo, YULISSA)2014 (Given - Provider: Radha Ray, YULISSA) 0817 (Given - Provider: Noris Rachel, RN) sodium chloride 0.9% flush 0.5-20 mL 0.5-20 mL, intra-catheter, Every 8 hours scheduled, First dose on 12/10/20 at 0600, Flush volume based on line type and size. 0616 (Given - Provider: Allegra Watson RN)1548 (Given - Provider: Ivan Lynn, YULISSA)2229 (Given - Provider: Radha Ray, RN) 0525 (Given - Provider: Radha Ray, RN)1254 (Given - Provider: Jolie Arredondo, YULISSA)2014 (Given - Provider: Radha Ray, YULISSA) 05 (Given - Provider: Radha Ray, RN)1427 (Not Given - Provider: Noris Rachel, YULISSA - Reason: Loss of IV access) white petrolatum 42 % ointment () topical, 3 times daily, First dose on Fri12/13/20 at 0900, For 11 days, Apply to affected area: other, Indications: skin irritation 1046 (Not Given - Provider: Ivan Lynn RN - Reason: Other)1600 (Given - Provider: Ivan Lynn RN)2229 (Given - Provider: Radha Ray, YULISSA) PRN [...] Ivan Lynn, YULISSA)1547 (Given - Provider: Ivan Lynn RN) 0523 (Given - Provider: Radha Ray RN)1054 (Given - Provider: Jolie Arredondo, YULISSA) oxyCODONE (ROXICODONE) tablet 10 mg 10 mg, oral, Every 4 hours PRN, 2nd line for pain, Starting on Fri12/20/20 at 0809, Indications: Pain 0615 (Given - Provider: Allegra Watson RN)1421 (Given - Provider: Ivan Lynn, YULISSA)1829 (Given - Provider: Ivan Lynn, YULISSA)2229 (Given - Provider: Radha Ray RN) 0356 (Given - Provider: Radha Ray RN)0806 [...] 3 202012/10/2020 sodium chloride 0.9% irrigation 4 1 12/10/2020 sterile water irrigation 2 12/21/2020 oxyCODONE [...] documented in this encounter Care Teams Metal Painter Relationship Specialty Start Date End Date Unknown, Notinfile PCP - General 12/09/20 12/24/20 No, Physician 12/09/20 documented as of this encounter
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
--- OUTSIDE RECORDS SUMMARY | 2024-09-11 03:24 | XMS_ITS | Encounter Summary ---
Author Organization [facility] Address [address] [place] [address] Phone Care Team Providers Care Metal Fabricator Name Role Phone No, Physician Primary Care Provider [phone] Reason for Visit * Reason Comments Neck Mass Encounter Details Date Type Department Care Team (Late st Contact Info) Description 06/27/2020 1:00 PM CDT Office Visit [facility] ([facility]) - [facility] [address] [facility] [address] [place] [address] [place] [address] Donny Prasad MD [address] [place], [place] [id number] Mass of right side of neck (Primary Dx) Social History Tobacco Use Types Packs/Day Years Used Date Smoking Tobacco: Former Sex and Gender Information Value Date Recorded Sex Assigned at Not on file Legal Sex Male 11:16 AM [employer] OUT WORK[employer] Gender Identity Not on file Sexual Orientation Not on file documented as of this encounter Last Filed Vital Signs Vital Sign Reading Time Taken Comments Blood Pressure 129/78 06/27/2020 1:08 PM CDT Pulse 99 06/27/2020 1:08 PM CDT Temperature - - Respiratory Rate - - Oxygen Saturation - - Inhaled Oxygen Concentration - - Weight 82.1 kg (181 lb) 06/27/2020 1:08 PM CDT Height - - Body Mass Index 25.97 06/27/2020 10:55 AM CDT documented in this encounter Progress Notes * Donny Prasad MD - 06/27/2020 1:00 PM CDT [facility] Department of Otolaryngology - Head & Neck Surgery Consultation Report Name: Paty Deluna Date of : 1970 Referring Physician: Joseph Shafer MD CHIEF COMPLAINT: Right neck mass Problem List Other Mass of right side of neck - Primary Relevant Orders Cytology HISTORY OF PRESENT ILLNESS: Mr. Deluna is a 50-year-old female that comes together with his mother. He over the last month's noted a right-sided neck swelling. It initially did not really causing the any symptoms however after final aspiration and has been tender. During this time he has had some the difficulty in pain while swallowing however he he does not report any true dysphagia or any weight loss. He does not smoke tobacco. He only drinks alcohol occasionally. He is an otherwise healthy gentleman. Past Medical History: Diagnosis Date ??? Peptic ulcer Past Surgical History: Procedure Laterality Date ??? FEMUR SURGERY Social History Socioeconomic History ??? Marital status: Spouse name: Not on file ??? Number of children: Not on file ??? Years of education: Not on file ??? Highest education level: Not on file Occupational History ??? Not on file Social Needs ??? Financial resource strain: Not on file ??? Food insecurity Worry: Not on file Inability: Not on file ??? Transportation needs Medical: Not on file Non-medical: Not on file Tobacco Use ??? Smoking status: Former Smoker Substance and Sexual Activity ??? Alcohol use: Not on file ??? Drug use: Not on file ??? Sexual activity: Not on file Lifestyle ??? Physical activity Days per week: Not on file Minutes per session: Not on file ??? Stress: Not on file Relationships ??? Social connections Talks on phone: Not on file Gets together: Not on file Attends gnosticist service: Not on file Active member of club or organization: Not on file Attends meetings of clubs or organizations: Not on file Relationship status: Not on file ??? Intimate partner violence Fear of current or ex partner: Not on file Emotionally abused: Not on file Physically abused: Not on file Forced sexual activity: Not on file Other Topics Concern ??? Not on file Social History Narrative ??? Not on file No family history on file. REVIEW OF SYSTEMS The patient-completed Review of Systems was reviewed and was scanned as an attachment to this encounter. PHYSICAL EXAM: Constitutional: Vitals: 06/27/20 1308 BP: 129/78 Pulse: 99 Weight: 82.1 kg (181 lb) General Appearance: Well-developed, well-nourished in no apparent distress. Head and Face: Normocephalic, atraumatic. No facial skin lesions. Face is symmetric Neurologic: Cranial nerves II through XII are grossly intact. Affect is normal. Eyes: Pupils are equal, round, and reactive to light and accommodation. Extraocular muscles are intact. No scleral icterus or injection. Ears: External ears have no lesions. Hearing grossly intact Nose: External nose has no lesions. Oral Cavity/Oropharynx: No visible lesions. Tongue protrudes midline, palate elevates symmetrically. Floor of mouth is pink and soft. No palpable abnormalities of the floor of mouth, oral tongue or base of tongue. Neck: No evidence of lymphadenopathy, masses or tenderness. The salivary gland examination is normal bilaterally. No palpable abnormalities of the thyroid gland. 3 cm anterior level 2 mobile neck mass. Cardiovascular: Extremities are warm and well perfused. Pulmonary: Normal quiet breathing. No respiratory distress, stridor, or wheeze. Musculoskeletal: Ambulates without difficulty and neck range of motion intact. PROCEDURE PERFORMED: Flexible nasal laryngoscopy (scope used f3) Secondary to right-sided neck mass, flexible nasal laryngoscopy was indicated. Therefore he was topically decongested and anesthetized with Afrin and lidocaine spray mixture. The scope was passed along the inferior border of the nasal cavity. There were no nasal masses or lesions. The nasopharynx is unremarkable. There are no masses or lesions in the nasopharynx. The palate elevated normally. Theoropharynx was then visualized. The tongue base was unremarkable. The vallecula was clear. The epiglottis was normal. The posterior oropharyngeal wall was unremarkable. The aryepiglottic folds, pyriform sinuses, false vocal cords, and true vocal cords were all unremarkable. The true vocal cords were symmetrically mobile with complete abduction and adduction. The proximal subglottis and trachea that could be visualized were unremarkable. The scope was withdrawn. The patient tolerated this well. There were no complications. DATA REVIEWED: Pathology Reports: CYTOPATHOLOGY REPORT FINAL Patient Name: ?? PATY DELUNA Gender: ??M : ??1970 (Age: 50) Address: ??[address] [place], [place] ??[address] Hospital #: ??[id number] Taken:06/19/2020 Received:06/19/2020 Reported: 06/22/2020 Patient Type: [facility] Ancillary ? Service: Radiology Location: [facility] Physician(s): ??MD Joseph Mckinney M.D. FINAL DIAGNOSIS A. ??Neck mass, right, level 2, ultrasound guided fine needle aspiration: ? - Suspicious for squamous cell carcinoma (see comment) - Lymphoid component present Radiology Reports: EXAMINATION: TUMOR FDG-PET/CT IMAGING ?? DATE OF STUDY: 06/27/2020 ?? SCANNER: [facility] ?? RADIOPHARMACEUTICAL: 15.7 mCi F-18 Fluorodeoxyglucose (FDG) i.v. Injection site: Right antecubital fossa ?? HISTORY: 50-year-old man with enlarged right neck mass, which appeared to be a necrotic level 2 lymph node with cytology results suspicious for squamous cell carcinoma. The study is requested for initial staging. ?? Initial treatment strategy. ?? TECHNIQUE: The patient's fasting blood glucose level, measured by glucometer before injection of FDG, was 94 mg/dL. MD-Gastroview was not given orally. After intravenous administration of FDG, noncontrast CT images were obtained for attenuation correction and for fusion with emission PET images to allow for anatomical localization of PET findings. Emission PET images were then obtained. The study was interpreted on the [employer] workstation. The mean liver SUV (reported for quality controller purposes) is 1.9. ?? The total scanned area was skull vertex to the proximal thighs. Images of the head and neck were obtained starting 50 minutes after injection of tracer. Images of the body were obtained starting 59 minutes after injection of tracer. ?? COMPARISON: Outside neck CT 05/22/2020, head and neck diagnostic ultrasound and FNA 06/19/2020 ?? FINDINGS: ?? There is asymmetric fullness of the right tonsillar region extending towards the glossotonsillar sulcus, with maximum SUV of 13.6 (axial image 77, head/neck acquisition). This is suspicious for site of primary tumor. Superiorly, it extends to the level of the hard palate. Inferiorly, the extent of tumor is probably above the glossotonsillar sulcus, but is more difficult to ascertain, as normal physiologic bilateral base of tongue and glossotonsillar sulcus activity is also present. ?? Lateral and inferior to the presumed primary, there is a large, heterogeneously low attenuation mass corresponding to the conglomerate of necrotic lymph nodes seen on the outside CT. This measures up to approximately 3.5 x 2.5 cm in greatest axial dimensions (axial image 92, head/neck). There is heterogeneous FDG uptake with areas of internal photopenia compatible with necrosis. The most metabolically active portion is at the superior/lateral margin, where maximum SUV of 7.5 is seen (axial image 84). ?? A small right level 3 lymph node with mild FDG uptake is nonspecific (axial image 101), probably reactive/inflammatory. ?? There is a small left-sided node at the level 2/3 junction, with activity at or just above blood pool (axial image 98 of the head/neck); this is indeterminate and nonspecific, but given the low level uptake, and in the setting of this type of tumor, disease involvement is considered unlikely, and this node is probably reactive/inflammatory. ?? No evidence of metastatic disease below the neck. ?? Moderate uptake in the proximal stomach could be physiologic or secondary to gastritis. ?? Incidentally noted is a standing column of FDG-rich urine within the penis. ?? Additional CT findings: Mild coronary artery disease, but with a dense calcification in the proximal left anterior descending artery. Otherwise minimal atherosclerosis. Calcified granulomas in the bilateral lungs, tona, and mediastinum. Calcified splenic granulomas. Dystrophic calcifications within the minimally enlarged prostate. Fixation hardware in the proximal right femur. Scattered bone islands. ?? IMPRESSION: Right tonsillar hypermetabolic soft tissue fullness, concerning for the site of primary squamous cell carcinoma. Enlarged conglomerate of right neck level 2 lymph nodes are compatible with local john involvement. IMPRESSION: Diagnosis Orders 1. Mass of right side of neck Cytology Assessment and plan: Gentleman with right-sided neck mass suspicious for squamous cell carcinoma. On physical examination I do not necessarily find a primary tumor. His tonsil is normal looking without any soft palate or base of tongue involvement. However PET scan does have some increased activity. 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 A offered a repeat final aspiration versus taken to the operating room fordirect laryngoscopy however he declined a needle biopsy today. He will come back in a week at to do this with on-site read. Thank you for allowing me to participate in the care of Mr. Deluna. Should you have any questions orconcerns, please do not hesitate to contact my office. Warm regards, documented in this encounter Plan of Treatment Not on file documented as of this encounter Visit Diagnoses Diagnosis Mass of right side of neck- Primary documented in this encounter Care Teams Metal Fabricator Relationship Specialty Start Date End Date No, Physician PCP - General 05/30/20 12/08/20 documented as of this encounter
--- OUTSIDE RECORDS SUMMARY | 2024-09-11 03:24 | XMS_ITS | Encounter Summary ---
Author Organization [facility] Healthcare Address [address] [place] [address] Care Team Providers Care Cuff Stitcher Name Role Phone No, Physician Primary Care Provider [phone] Encounter Details Date Type Department Care Team (Late st Contact Info) Description 08/07/2020 7:30 AM VACUUM METALIZER OPERATOR - 08/07/2020 10:50 AM VACUUM METALIZER OPERATOR Surgery [facility] Operating Room [address] [place] [address] Donny Prasad MD [address] [place] [address] EXCISION CYST/LESION/MASS - NECK Surgery Details Date/Time Status Location OR Service Patient Class Case Class Case Type Trauma Case? 08/07/2020 7:30 AM Posted [facility] OR POD 5 218 Otolaryngology Outpatient in Bed Time Sensitive - 1 Week Panel 1 Procedure LRB Anes Op Region Wound Class Comments EXCISION CYST/LESION/MASS - NECK Right Monitor Anesthesia Care Neck Class I - Clean DISSECTION RADICAL NECK Right General Neck Class I - Clean Tonsillectomy General Throat Class II - Clean Contaminated Surgeon Surgeon Role Service Panel Per Page MD Resident - Assisting Min or Procedures 1 Donny Prasad MD Primary Otolaryngology 1 documented in this encounter Social History Tobacco Use Types Packs/Day Years Used Date Smoking Tobacco: Never Smokeless Tobacco: Never Alcohol Use Standard Drinks/Week Comments Yes 18 (1 standard drink = 0.6 oz pu re alcohol) Sex and Gender Information Value Date Recorded Sex Assigned at Not on file Legal Sex Male 11:16 AM VACUUM METALIZER OPERATOR Gender Identity Not on file Sexual Orientation Not on file documented as of this encounter Last Filed Vital Signs Vital Sign Reading Time Taken Comments Blood Pressure 91/62 08/07/2020 10:50 AM VACUUM METALIZER OPERATOR Pulse 95 08/07/2020 10:50 AM VACUUM METALIZER OPERATOR Temperature 36 ??C (96.8 ??F) 08/07/2020 10:30 AM VACUUM METALIZER OPERATOR Respiratory Rate 11 08/07/2020 10:50 AM VACUUM METALIZER OPERATOR Oxygen Saturation 99% 08/07/2020 10:50 AM VACUUM METALIZER OPERATOR Inhaled Oxygen Concentration - - Weight 86.2 kg (190 lb) 08/07/2020 6:08 AM VACUUM METALIZER OPERATOR Height 177.8 cm (5' 10 ) 08/07/2020 6:08 AM VACUUM METALIZER OPERATOR Body Mass Index 27.26 08/07/2020 6:08 AM VACUUM METALIZER OPERATOR documented in this encounter Discharge Summaries * Ashley Johnson PA - 08/07/2020 6:56 PM CST Inpatient Discharge Summary BRIEF OVERVIEW Admitting Provider: Donny Prasad MD Discharge Provider: Donny Prasad MD Primary Care Physician at Discharge: No, Physician [phone] Admission Date: 08/07/2020 Discharge Date: 08/08/2020 Admission Location: [facility] Problems/Diagnoses: Principal Problem: Mass in neck Resolved Problems: No resolved hospital problems. DETAILS OF HOSPITAL STAY Presenting Problem/History of Present Illness: Gentleman with right-sided neck mass suspicious for squamous cell carcinoma. On physical examination I do not necessarily find a primary tumor. His tonsil is normal looking without any soft palate orbase of tongue involvement. However PET scan does have some increased activity. 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 Three biopsies from the neck mass high which showed keratinous debris suspicious for carcinoma.I do think that this is a real possibility that this could be just a branchial cleft cyst however still high likelihood of cancer. We discussed further attempts to obtain a diagnosis prior to definitive treatment such as core needle biopsy and biopsy of tonsil in the operating room however at this point he wishes to proceed with removal and possible conversion to neck dissection and tonsillectomyshould this intraoperatively be determined to be cancer. Hospital Course: Patient underwent right transoral radical tonsillectomy, right neck dissection (II-IV), lysis of external carotid system with ligation of lingual facial trunk on 08/[address] Prasad. He tolerated the procedure well. Patient admitted for overnight observation. No acute events. Postoperative plan of care included pain management and TAMI drain management. By the time of discharge, the patient's pain was adequate controlled and they were voiding spontaneously. Active Issues Requiring Follow-up: Final Pathology Test Results Pending at Discharge: Pending Labs Order Current Status Surgical pathology In process Operative Procedures Performed: Procedure(s): EXCISION CYST/LESION/MASS - NECK DISSECTION RADICAL NECK Tonsillectomy Other Procedures: None Pertinent Test Results: None Discharge Details Physical Exam at Discharge: Discharge Condition: good Pulse: 96 Resp: 16 BP: 102/59 Temp: 36.3 ??C (97.3 ??F) Weight: 86.2 kg (190 lb) Pertinent Exam Findings at Discharge: see previous progress note Discharge Disposition: Discharge to home or self careHome with self care Code Status at Discharge: Full Code Discharge Instructions: See AVS Discharge Medications: Current Medications TAKE these medications acetaminophen 325 mg tablet Take 650 mg by mouth every 6 (six) hours as needed for pain Commonly known as: TYLENOL rogkvteryyyhy-uxikkpz-exrbdgxd 250-250-65 mg per tablet Take 1 tablet by mouth every 6 (six) hours as needed for headaches Commonly known as: EXCEDRIN MIGRAINE bacitracin-polymyxin B ointment Apply 1 application topically 2 (two) times a day For: minor skin infection due to bacteria, wound care Commonly known as: POLYSPORIN * oxyCODONE 5 mg immediate release tablet Take 1 tablet (5 mg total) by mouth every 4 (four) hours as needed for pain For: pain Commonly known as: ROXICODONE * oxyCODONE 5 mg immediate release tablet Take 1 tablet (5 mg total) by mouth every 4 (four) hours as needed for pain For: pain Commonly known as: ROXICODONE * This list has 2 medication(s) that are the same as other medications prescribed for you. Read the directions carefully, and ask your doctor or other care provider to review them with you. Outpatient Follow-Up: Future Appointments Date Time Provider Department Center 08/16/2020 11:00 AM Donny Prasad MD [facility] [place] Cosigned by Donny Prasad MD at 08/08/2020 10:17 AM VACUUM METALIZER OPERATOR UM METALIZER OPERATOR UM METALIZER OPERATOR documented in this encounter Discharge Instructions * Discharge Instructions* Ashley Johnson PA - 08/08/2020 10:00 AM VACUUM METALIZER OPERATOR ENT Post Operative Discharge Instructions Procedure: right radical tonsillectomy, right neck dissection When to call your doctor: * You have a fever of more than 101.5. * You have redness or swelling around your incision. * The pain in your incision starts hurting very badly. * Your incision starts draining. * You notice a foul odor from surgical area. *You have pus, bleeding, or drainage around your incision site. *Your incision is opening. *You notice a foul odor. *You have persistent nausea and/or vomiting, *You feel dizzy or like you may pass out. * You have a hard time breathing. * You have any questions or concerns. Questions: If you have any concerns or questions, or develop worrisome symptoms such as worsening pain or swelling, bleeding, fever, or vomiting, call your doctor. Use [phone] if you are calling during weekday business hours (8am-5pm Friday through Friday), otherwise call [phone] and ask for the ENT resident technical consultant. How to manage your Aroldo-Diego (TAMI) drain: If you were sent home with a plastic bulb TAMI drain: * Your drain should always have suction to remove the drainage. If the bulb gets completely puffed up you have lost suction. * To replace the suction - pop open the plastic valve at the top of the bulb. Squeeze the bulb and then close the plastic valve. The bulb should now be partly sucked in. * Empty and write down how much drainage comes from your TAMI drain every day. If the drainage is less than 25 milliliters in a 24 hour period your drain may be removed. * Please call the ENT clinic and schedule a time to see Melisa Langford, the ENT physician commercial assistant for removal, when the drain has had less than 25mL over 24 hours. * If your drain falls out/is pulled out, leave it out. You should cover the opening with a dry dressing and call your surgeon's nurse when you get a chance. Clinic number: [phone] Diet: Soft Activity: Do NOT LIFT ANYTHING GREATER THAN A GALLON OF MILK UNTIL YOUR FOLLOW UP APPOINTMENT. Light activity for the next 24 hours. Resume normal activity afterwards as tolerated. You may feel tired and run down after surgery. It is normal to sleep more or take more naps. Light activity is okbut avoid heavy house work, yard work or strenuous exercise. Short walks are encouraged. Activitiescan be slowly increased as tolerated. Do not drive, operative heavy machinery, or make important legal decisions for the next 24 hours orwhile taking narcotic pain medication. Driving privileges are left up to the discretion of your physician and will be discussed further at your follow up appointment. You cannot drive while taking narcotic pain medication. Wound Care: absorbable sutures. They will dissolve over the next few weeks. You may apply bacitracin, polymixin, or neosporin antibiotic ointment three times a day over your incision for 3 days. Then you may apply vaseline ointment to your incisions three times daily. ?? Keep your incision clean. ??? Keep the wound covered when in a place where the wound might get dirty. ??? You may shower normally, allowing the water to wash gently over the suture line, but do not scrub the sutures or incisions. It is fine for soap to wash over the incisions, but it must be rinsed off. You may use a mild shampoo to wash your hair (baby shampoo is fine). If your wound gets wet, lightly dab it dry. ??? Do NOT submerge yourself in any water that will cover the incision (bathtub, hot tub, swimming pool), unless specifically cleared by your doctor. ??? Do not scrub, rub, or pick at the incision. ??? Please take extra care to avoid sun exposure until the wounds are healed and then protect the incision sites with sunscreen (about 6 weeks after your surgery) as sun exposure can interfere with the healing process. Sun exposure retards healing and causes discoloration of the scar that may neverdisappear. ??? If any crusting forms on suture line, clean gently with Q-tip dipped in a 50:50 mixture of peroxide and water and apply vaseline twice a day. Call for increased problems including increased pain,redness or swelling. Do not smoke tobacco Smoking has been proven to interfere with the normal wound healing. Smoking will dramatically reduce the success rate of your surgery. Your primary care doctor can prescribe a patch to help you stop smoking if you would like. Medications: - Pain: ??? You may have been prescribed Acetaminophen (Tylenol) or you may buy it at any pharmacy or drugstore. You should take Acetaminophen (Tylenol) 1000 mg every 8 hours for pain. Taking this in addition to your narcotic pain medication will provide greater pain relief. ??? You have been prescribed oxycodone or another narcotic medication to help with your pain. You should only use this pain medication to help with pain that is not adequately controlled by tylenol. You should not drive while taking narcotic pain medication. Narcotic pain medication can make you constipated; take a stool softener as needed. - Antibiotic: None - Anticoagulation/antiplatelet agents: none Follow up: You should follow up in Dr. Prasad's clinic on 08/16/2020 at 11AM. [place] [id number] [address] [address] If you do not have a follow-up appointment, call to schedule one. OTHER FOLLOW UP: 1. PCP - for management of all chronic illnesses Future Appointments Date Time Provider Department Center 08/16/2020 11:00 AM Donny Prasad MD [facility] [place] Phone numbers ??? Appointment Scheduling: ??? After hours: Call and ask for the ENT resident technical consultant. Questions: If you have any concerns or questions, or develop worrisome symptoms such as worsening pain or swelling, bleeding, fever, or vomiting, call your doctor. UM METALIZER OPERATOR documented in this encounter Medications at Time of Discharge acetaminophen (TYLENOL) 325 mg tablet Take 650 mg by mouth every 6 (six) hours as needed for pain 1 acetaminophen-as pirin-caffeine (EXCEDRIN MIGRAINE) 250-250-65 mg per tablet Take 1 tablet by mouth every 6 (six) hours as needed for headaches 1 bacitracin-polym yxin B (POLYSPORIN) ointmentIndicati ons:Minor Bacterial Skin Infections,wound care Apply 1 application topically 2 (two) times a day 15 g 3 08/08/2020 1 oxyCODONE (ROXICODONE) 5 mg immediate release tabletIndication s:Pain Take 1 tablet (5 mg total) by mouth every 4 (four) hours as needed for pain 40 tablet 08/08/2020 1 oxyCODONE (ROXICODONE) 5 mg immediate release tabletIndication s:Pain Take 1 tablet (5 mg total) by mouth every 4 (four) hours as needed for pain 40 tablet 08/08/2020 1 documented as of this encounter Ordered Prescriptions Prescription Sig Dispense Quantity Refills Last Filled Start Date End Date bacitracin-polymyx in B (POLYSPORIN) ointmentIndication s:Minor Bacterial Skin Infections,wound care Apply 1 application topically 2 (two) times a day 15 g 3 08/08/2020 1 oxyCODONE (ROXICODONE) 5 mg immediate release tabletIndications: Pain Take 1 tablet (5 mg total) by mouth every 4 (four) hours as needed for pain 40 tablet 08/08/2020 1 oxyCODONE (ROXICODONE) 5 mg immediate release tabletIndications: Pain Take 1 tablet (5 mg total) by mouth every 4 (four) hours as needed for pain 40 tablet 08/08/2020 1 documented in this encounter Discharge Disposition Disposition Code Departure Means Destination Discharge to home or self care documented in this encounter Progress Notes * Arabella Butler, YULISSA - 08/08/2020 10:32 AM CST 08/08/20 1032 Discharge Summary Chart reviewed For Medical Necessity Does patient have a planned readmission to hospital planned? No Discharge Disposition Home Equipment/Provider Needs No Home Needs Identified Discharge Additional Assistance Does the patient need discharge transport arranged? No Post Discharge Care Provider Post Discharge Care Plan Next level of care provider has access to complete EMR Plan to discharge home with family. Pt. mother will transport patient home. Follow-up appointment in place. Patient has a peripheral line which will be removed upon discharge. Discharged [facility] filled [facility]. No additional needs identified and pt. Agrees with the plan. UM METALIZER OPERATOR * Arabella Butler RN - 08/08/2020 10:29 AM CST CM Initial Assessment Interview Note Information Obtained From: Patient (08/08/20 102) Admission Source: Non Health Care Facility Point of Origin Impression: 50 yo M w/ right neck mass concerning for malignancy now s/p right radical tonsil, RND (2-4), and ligation of right lingual and facial arteries. Plan Includes: Safe discharge home with family support. Primary Source of Transportation: Patient mother will be provided transport home when discharged. Health Insurance Coverage: [facility] Choice Select Prescription Coverage: Yes Pharmacy: [facility] Primary Care Provider: No, Physician Patient is currently trying to find a PCP. He use to have a Dr. Silverman several years ago but no longer has this physician. Prior to Admission: Primary Caregiver: Self Support System: Parent Support system contact info (name, phone, availablity): Diamond Mosquera (mother) [phone] Home Care Services: No Durable Medical Equipment: None Living Arrangements: Parent Type of Residence: Private residence Steps in home? : Yes, Outside of home Number of steps outside:: 3 steps (08/08/20 102) Potential discharge needs include: No needs identified Dialysis: Dialysis: No (08/08/20 102) Behavioral Health Services: Behavioral Health Services: No (08/08/20 102) Patient expects to be Discharged to: Private residence, (08/08/20 102) Patient's Identified Problem/Goal Problem: Ensure acute medical [...] Collaboration with patient, MD, direct care nurse, Coordinator Of Placement, Nurse Coordinator and other members of the health care team to assure needed interventions completed. 2. Return patient to optimal level of self-care post discharge. 3. Meringuer will follow for Discharge Planning - interventions as needed 4. Anticipated level of care at discharge 5. Planned Discharge Disposition Based on a comprehensive family assessment, assistance with instrumental activities of daily livingafter discharge will be provided by patient Through the course of our work I determined that the mother possesses the skill and ability to provide and monitor the care of the patient when he returns home. Mother has the capacity to provide/monitor/arrange for the care of the patient. Finally, we determined that mother has the knowledge of available resources and that combining them with their existing resources will suffice to sustain and c are for the patient when he returns home. The treatment team is aware of this information. All are in agreement with the aftercare plan. Arabella Butler RN UM METALIZER OPERATOR * Rosalie Gilliam MD - 08/08/2020 9:03 AM CST Otolaryngology Daily Progress Note 50 yo M w/ right neck mass concerning for malignancy now s/p right radical tonsil, RND (2-4), and ligation of right lingual and facial arteries. Subjective: Pain controlled. Tolerating PO without nausea or vomiting. Breathing comfortably. Declined lovenox overnight. Objective: Vitals: 08/07/20 2100 08/07/20 2345 08/08/20 0020 08/08/20 0415 BP: 94/55 (!) 86/50 99/56 108/70 BP Location: Right arm Left arm Right arm Patient Position: Lying HOB 30 degrees Pulse: 80 81 90 Resp: 18 16 16 Temp: 36.7 ??C (98.1 ??F) 36.5 ??C (97.7 ??F) 36.6 ??C (97.9 ??F) TempSrc: Oral Axillary Axillary SpO2: 92% 96% 96% Weight: Height: General: Well-developed, well-nourished in no apparent distress. Appropriate affect. Head and Face: Normocephalic, atraumatic. Skin: No cutaneous lesions of the face or neck. Neurologic: Alert and Oriented x3, face symmetric and facial sensation intact. Tongue midline. Moving all extremities. Eyes: Pupils are equal, round, and reactive to light. Extraocular muscles are intact. No scleral icterus or injection. Ears: Pinnae normal bilaterally. No otorrhea. Nose: Dorsum is midline. No drainage or discharge. Oral Cavity/Oropharynx: No visible mucosal lesions. Moist mucous membranes. No bleeding or drainage. Neck: Soft and flat. Incision c/d/i. TAMI serosanguinous. Cardiovascular: Extremities are warm and well perfused. Pulmonary: Normal quiet breathing. No respiratory distress, stridor, or wheeze. 50 yo M w/ right neck mass concerning for malignancy now s/p right radical tonsil, RND (2-4), and ligation of right lingual and facial arteries. - pain control - soft diet - TAMI to be removed today - discharge today Rosalie Gilliam MD Resident Physician, PGY-2 Otolaryngology-Head & Neck Surgery C: [phone] For questions please reach out to: Fri - Fri Daytime: IVAN Mast at [phone] Fri Daytime (backup Fri-Fri): Clarissa Nichols MD at [phone] Weekends & After 6pm: ENT Consult Cosigned by Donny Prasad MD at 08/08/2020 12:44 PM VACUUM METALIZER OPERATOR UM METALIZER OPERATOR UM METALIZER OPERATOR * Per Page MD - 08/07/2020 6:20 PM CST ENT Postoperative Check Subjective: Pain controlled. Tolerating PO without nausea or vomiting. Breathing comfortably. Objective: Vitals: 08/07/20 1253 08/07/20 1323 08/07/20 1423 08/07/20 1523 BP: 100/63 107/63 97/58 115/73 BP Location: Left arm Left arm Left arm Right arm Patient Position: Lying Lying Lying Lying Pulse: 85 83 73 73 Resp: 16 18 16 Temp: 36.4 ??C (97.5 ??F) 36.5 ??C (97.7 ??F) 36.4 ??C (97.5 ??F) 36.4 ??C (97.5 ??F) TempSrc: Axillary Axillary Axillary Axillary SpO2: 97% 96% 97% 99% Weight: Height: General: Well-developed, well-nourished in no apparent distress. Appropriate affect. Head and Face: Normocephalic, atraumatic. Skin: No cutaneous lesions of the face or neck. Neurologic: Alert and Oriented x3, face symmetric and facial sensation intact. Tongue midline. Moving all extremities. Eyes: Pupils are equal, round, and reactive to light. Extraocular muscles are intact. No scleral icterus or injection. Ears: Pinnae normal bilaterally. No otorrhea. Nose: Dorsum is midline. No drainage or discharge. Oral Cavity/Oropharynx: No visible mucosal lesions. Moist mucous membranes. No bleeding or drainage. Neck: Soft and flat. Incision c/d/i. TAMI serosanguinous. Cardiovascular: Extremities are warm and well perfused. Pulmonary: Normal quiet breathing. No respiratory distress, stridor, or wheeze. 50 yo M w/ right neck mass concerning for malignancy now s/p right radical tonsil, RND (2-4), and ligation of right lingual and facial arteries. - pain control - soft diet - TAMI care - likely dispo POD1 UM METALIZER OPERATOR * Rojelio Badillo RN - 08/07/2020 12:28 PM CST Frequent safety and comfort rounds continue. Orders and/or nursing care completed as indicated. Patient monitored for response to intervention and treatment(s).Wound care, TAMI drain care . Education provided includes Acivity, diet, need to void. . Patient and Mom responsive to teaching.. Will continue to monitor. UM METALIZER OPERATOR documented in this encounter H&P Notes * Per Page MD - 08/07/2020 6:53 AM CST I have reviewed the H&P, examined the patient, and endorse the findings as written. Plan of Care : Based on the above findings, I consider aPty Matute to be an acceptable risk for : Procedure(s): TONSILLECTOMY WITH LASER CO2 OMNIGUDE (H.A) EXCISION CYST/LESION/MASS - NECK DISSECTION RADICAL NECK GLOSSECTOMY - PARTIAL Cosigned by Donny Prasad MD at 08/07/2020 7:29 AM VACUUM METALIZER OPERATOR UM METALIZER OPERATOR UM METALIZER OPERATOR Source Note - Donny Prasad MD - 07/12/2020 1:40 PM VACUUM METALIZER OPERATOR [employer] Department of Otolaryngology - Head & Neck Surgery Consultation Report Name: Paty Matute Date of : 1970 Referring Physician: Joseph Shafer MD CHIEF COMPLAINT: Right neck mass Problem List Other Mass in neck - Primary Overview Added automatically from request for surgery [id number] HISTORY OF PRESENT ILLNESS: Mr. Matute is a 50-year-old female that comes together [...] occasionally. He is an otherwise healthy gentleman. 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 Certainly there is a small possibility that this could also could just represent a branchial cleft cyst. We discussed further diagnostic interventions to get to the bottom of diagnosis however he was not mentally ready for a fine-needle aspiration that time. He today returns for discussion of the results of the previous renewed needle biopsy. Past Medical History: Diagnosis Date ??? Peptic [...] file Gets together: Not on file Attends mandaen service: Not on file Active member of [...] to this encounter. PHYSICAL EXAM: Constitutional: Vitals: 07/12/20 1333 Weight: 86.7 kg (191 lb 3.2 oz) General Appearance: Well-developed, well-nourished in no apparent [...] difficulty and neck range of motion intact. DATA REVIEWED: Pathology Reports: CYTOPATHOLOGY REPORT FINAL Patient Name: ?? PATY MATUTE Gender: ??M : ??1970 (Age: 50) Address: ??[address] [place] [id number] Hospital #: ??[id number] Taken:06/19/2020 Received:06/19/2020 Reported: 06/22/2020 Patient Type: [facility] Ancillary ? Service: Radiology Location: [facility] Physician(s): ??MD Joseph Mckinney M.D. FINAL DIAGNOSIS A. ??Neck mass, right, level 2, ultrasound guided fine needle aspiration: ? - Suspicious for squamous cell carcinoma (see comment) - Lymphoid component present Radiology Reports: EXAMINATION: TUMOR FDG-PET/CT IMAGING ?? DATE OF STUDY: 06/27/2020 ?? SCANNER: T ?? RADIOPHARMACEUTICAL: 15.7 mCi F-18 Fluorodeoxyglucose (FDG) [...] obtained. The study was interpreted on the [employer] workstation. The mean liver SUV (reported for water quality tester purposes) is 1.9. ?? The total scanned [...] john involvement. IMPRESSION: Diagnosis Orders 1. Mass in neck Assessment and plan: Gentleman with right-sided neck [...] need additional tissue to make that diagnosis. Three biopsies from the neck mass high which showed keratinous debris suspicious for carcinoma. I do think that this is a real possibility that this could be just a branchialcleft cyst however still high likelihood of cancer. We discussed further attempts to obtain a diagnosis prior to definitive treatment such as core needle biopsy and biopsy of tonsil in the operating room however at this point he wishes to proceed with removal and possible conversion to neck dissection and tonsillectomy should this intraoperatively be determined to be cancer. Thank you for allowing me to participate in the care of Mr. Matute. Should you have any questions orconcerns, please do not hesitate to contact my office. Warm regards, UM METALIZER OPERATOR documented in this encounter Miscellaneous Notes * Plan of Care - Gayla Rudd RN - 08/07/2020 11:46 PM CST Goals: Clinical Goals for the Shift: pain control; monitor I&O's; abx administration Problem: Health Behavior: Goal: Understanding of discharge [...] improve to fullest extent possible Outcome: Progressing Summary: Patient progressing towards goals. Will continue to monitor pain control, I&O's, vitalsigns, safety, and rest. UM METALIZER OPERATOR * Brief Op Note - Per Page MD - 08/07/2020 7:56 AM VACUUM METALIZER OPERATOR Operative Progress Note Surgical Team: Surgeon(s) and Role: * Donny Prasad MD - Primary * Per Page MD - Resident - Assisting Anesthesiologist: Stefanie Ramirez MD Vp Clinical Research: Palmira Banegas MD Needle Setter: Christina Samson RN Scrub: Lindsey Lindsey ST DATE OF SURGERY : 08/07/2020 Preoperative Diagnosis: Pre-op Diagnosis * Mass in neck [R22.1] Postoperative Diagnosis: Post-op Diagnosis * Mass in neck [R22.1] Procedure(s): Procedure(s) (LRB): TONSILLECTOMY WITH LASER CO2 OMNIGUDE (H.A) (Right) EXCISION CYST/LESION/MASS - NECK (Right) DISSECTION RADICAL NECK (Right) Operative Findings: Right tonsil biopsy positive for SCCa. Right radical tonsillectomy with intraoperative frozen margins negative. Right neck dissection and ligation of lingual and facial arteries. Estimated Blood Loss: 100 mls Intraoperative Fluids: 1500 mls Specimens: ID Type Source Tests Collected by Time A : RIGHT PALATINE TONSIL BIOPSY Tissue Soft tissue biopsy SURGICAL PATHOLOGY Donny Prasad MD 08/07/2020 0823 B : LATERAL MUCOSAL MARGIN Tissue Soft tissue biopsy SURGICAL PATHOLOGY Donny Prasad MD 08/07/2020 0824 C : SUPERIOR MUCOSAL MARGIN Tissue Soft tissue biopsy SURGICAL PATHOLOGY Donny Prasad MD 08/07/2020 0825 D : INFERIOR MUCOSAL MARGIN Tissue Soft tissue biopsy SURGICAL PATHOLOGY Donny Prasad MD 08/07/2020 0826 E : MEDIAL MARGIN Tissue Soft tissue biopsy SURGICAL PATHOLOGY Donny Prasad MD 08/07/2020 0826 F : INFERIOR DEEP MARGIN Tissue Soft tissue biopsy SURGICAL PATHOLOGY Donny Prasad MD 08/07/20200827 G : DEEP SOFT PALATE MARGIN Tissue Soft tissue biopsy SURGICAL PATHOLOGY Donny Prasad MD 08/07/2020 0827 H : RE-RESECTION DEEP SOFT PALATE Tissue Soft tissue biopsy SURGICAL PATHOLOGY Donny Prasad MD 08/07/202037 I : RIGHT TONSIL STITCH SUPERIOR Tissue Soft tissue biopsy SURGICAL PATHOLOGY Donny Prasad MD 08/07/2020 0838 J : right neck disection level 2 Tissue Soft tissue biopsy SURGICAL PATHOLOGY Donny Prasad MD 08/07/2020 0936 K : right neck disection level 3 Tissue Soft tissue biopsy SURGICAL PATHOLOGY Donny Prasad MD 08/07/2020 0937 L : right neck disection level 4 Tissue Soft tissue biopsy SURGICAL PATHOLOGY Donny Prasad MD 08/07/202037 M : right neck disection level 2b Tissue Soft tissue biopsy SURGICAL PATHOLOGY Donny Prasad MD 08/07/2020 0938 Implants: Nothing was implanted during the procedure Blood/Blood Products Transfused: 0 mls Complications: None Condition on Discharge from the operating room was stable Mina Page MD Date: 08/07/2020 Time: 10:17 AM TEACHING ATTESTATION : Dr. Prasad was present and directly participated in all portions of the procedure. Cosigned by Donny Prasad MD at 08/08/2020 8:50 AM VACUUM METALIZER OPERATOR UM METALIZER OPERATOR UM METALIZER OPERATOR * Op Note - Donny Prasad MD - 08/07/2020 12:00 AM CST Surgeon Donny Prasad MD Composition Teacher Surgeon Mina Page. Preoperative Diagnosis Right neck mass suspicious for carcinoma. 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 Procedure Performed 1. Right transoral radical tonsillectomy. Use of microscope. 2. Right neck dissection level 2A, 2B, 3, and 4. 3. Lysis of external carotid system. Ligation of lingo-facial trunk. Reason for Procedure A 50-year-old gentleman with a history of right-sided neck mass. It was worked up and was suspicious for carcinoma x3. Ultimately elected to take him to the operating room for resection and be prepared to covert to cancer resection should we find evidence for disease. The patient was preoperativelyinformed about the risks and benefits of the procedure which included, but were not limited to, pain, bleeding, infection, risks of anesthesia, risk of need for further surgical intervention. We alsodiscussed postoperative dysphagia, dysarthria and need for further intervention. Despite those risks, he wanted to proceed. Procedure in Detail The patient was identified in the preoperative area. Consent was confirmed on chart. The patient was then brought back to the operative suite, placed supine position and general anesthesia was induced. The patient was endonasally intubated. Patient was then turned 90 degrees away from the shot core drill operator. Before we began surgery, we performed a final timeout. We started by performing a direct laryngoscopy. It was pretty evident that there was a tumor in the superior pole. 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 We used a Quoc-Justin and then the microscope was brought into to the field. We then used electrocautery, started the cuts superiorlyalong the superior tonsillar pole and deepened these through the mucosa laterally. We took a cuff of musculature around this superiorly. We were pretty close to the tumor here in this area so we ultimately re-resected some before taking our final margin. We continued through the constrictors and into the parapharyngeal space. We took a cuff of constrictor pharyngeal musculature. However, the glossopharyngeal nerve could be preserved as the tumor was only involving the superior pole. The inferior pole was now transected. We then elevated some of the palatoglossus as well as some of the constrictors from the surgical bed. Mucosal margins were sent. Deep margins were also sent and all these were clear. At this point, we then turned attention to the right neck dissection. A curvilinear incision was marked out of the neck when they used a 15 blade knife to incise the skin, subcutaneous tissue, and platysma. Subplatysmal flaps were raised. The SCM was completely skeletonized. We then dissected on towards the posterior belly of digastric and then followed this all the way to the mastoid tip. The hypoglossal nerve was identified and followed up. At this point, we then created a lateral tunnel to the internal jugular vein superiorly as well as inferiorly, took all fibrofatty content in level 4, 3 and 2 and dissected off the prevertebral fascia and dissected off the carotid sheath sharply. We then divided the specimen to its levels. Level 2B was taken out separately in between the upper and neck triangle, 11th nerve internal jugular vein. This concluded the neck dissection. We then performed the lysis of the external carotid system. External carotid was identified and we identified the lingual facial trunk just underneath the hypoglossal as it was crossing over the external carotid system. Two medium clips were placed. At this point, we then closed the neck in layers after suction drain was placed. Valsalva confirmed no occult bleeders. 3-0 Vicryl was used for the deep dermis and then chromic gut for the skin. Patient was now returned to shot core drill operator. The patient tolerated the procedure well. Statement of Presence I was present for entire procedure. Job ID/VF Job ID: [id number] UM METALIZER OPERATOR documented in this encounter Plan of Treatment Not on file documented as of this encounter Procedures Procedure Name Priority Date/Time Associated Diagnosis Comments SURGICAL PATHOLOGY Routine 08/07/2020 8: 23 AM VACUUM METALIZER OPERATOR Mass in neck TONSILLECTOMY 08/07/2020 7:32 AM VACUUM METALIZER OPERATOR Mass in neck DISSECTION RADICAL NECK 08/07/2020 7:32 AM VACUUM METALIZER OPERATOR Mass in neck EXCISION CYST/LESION/MASS - NECK 08/07/2020 7:32 AM VACUUM METALIZER OPERATOR Mass in neck B CHECK SAMPLE STAT 08/07/2020 6:30 AM VACUUM METALIZER OPERATOR documented in this encounter Results * Surgical pathology (08/07/2020 8:23 AM VACUUM METALIZER OPERATOR) Tissue (Soft tissue biopsy) 08/07/2020 8:23 AM VACUUM METALIZER OPERATOR Comment:FRESH-ENT Tissue (Soft tissue biopsy) 08/07/2020 8:24 AM VACUUM METALIZER OPERATOR Comment:FRESH-ENT Tissue (Soft tissue biopsy) 08/07/2020 8:25 AM VACUUM METALIZER OPERATOR Comment:FRESH-ENT Tissue (Soft tissue biopsy) 08/07/2020 8:26 AM VACUUM METALIZER OPERATOR Comment:FRESH-ENT Tissue (Soft tissue biopsy) 08/07/2020 8:26 AM VACUUM METALIZER OPERATOR Comment:FRESH-ENT Tissue (Soft tissue biopsy) 08/07/2020 8:27 AM VACUUM METALIZER OPERATOR Comment:FRESH-ENT Tissue (Soft tissue biopsy) 08/07/2020 8:27 AM VACUUM METALIZER OPERATOR Comment:FRESH-ENT Tissue (Soft tissue biopsy) 08/07/2020 8:37 AM VACUUM METALIZER OPERATOR Comment:FRESH-ENT Tissue (Soft tissue biopsy) 08/07/2020 8:38 AM VACUUM METALIZER OPERATOR Comment:FRESH-ENT Tissue (Soft tissue biopsy) 08/07/2020 9:36 AM VACUUM METALIZER OPERATOR Comment:FRESH-ENT Tissue (Soft tissue biopsy) 08/07/2020 9:37 AM VACUUM METALIZER OPERATOR Comment:FRESH-ENT Tissue (Soft tissue biopsy) 08/07/2020 9:37 AM VACUUM METALIZER OPERATOR Comment:FRESH-ENT Tissue (Soft tissue biopsy) 08/07/2020 9:38 AM VACUUM METALIZER OPERATOR Comment:FRESH-ENT Narrative PATHOLOGY [facility] - 08/14/2020 12:04 PM VACUUM METALIZER OPERATOR EPIC results best viewed via link to PDF [facility] [place] [address] SURGICAL PATHOLOGY REPORT FINAL Patient Name: ?? PATY MATUTENoemi Gender: ??M : ??1970 (Age: 50) Address: ??[address] [place] [id number] Hospital #: ??[id number] Taken:08/07/2020 Received:08/07/2020 Reported: 08/14/2020 Patient Type: [facility] OP In Bed ?? Service: Otolaryngology Location: [place] [address] Physician(s): ??Donny Prasad M.D. Diagnosis: A. ??Oropharynx, right palate and tonsil, excision (AFR1) ? - Squamous cell carcinoma B. ??Oropharynx, lateral mucosal margin, excision (BFR1) ? - Squamous mucosa with no evidence of malignancy C. ??Oropharynx, superior mucosal margin, excision (CFR1) ? - Squamous mucosa with no evidence of malignancy D. ??Oropharynx, inferior mucosal margin, excision (DFR1) ? - Squamous mucosa with no evidence of malignancy E. ??Oropharynx, medial margin, excision (EFR1) ? - Tonsillar tissue with no evidence of malignancy F. ??Oropharynx, inferior deep margin, excision (GFR1) ? - Skeletal muscle with no evidence of malignancy G. ??Oropharynx, deep soft palate margin, excision (GFR1) ? - Skeletal muscle with no evidence of malignancy H. ??Oropharynx, reresection deep soft palate, excision ? - Skeletal muscle with no evidence of malignancy I. ??Oropharynx, right tonsil, tonsillectomy ? 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 - Lymphovascular invasion present ? - No perineural invasion identified ? - Carcinoma present at superior margin, not true margin ? - See synoptic summary and comment J. ??Lymph node, right neck level II, dissection ? - Metastatic squamous cell carcinoma involving one of five lymph node (1/5) ? - Tumor deposit measures 6.0 cm - No extranodal extension identified ? K. ??Lymph node, right neck level III, dissection ? - No evidence of malignancy in seven lymph nodes (0/7) L. ??Lymph node, right neck level IV, dissection ? - No evidence of malignancy in six lymph nodes (0/6) M. ??Lymph node, right neck level IIB, dissection ? - No evidence of malignancy in ten lymph nodes (0/10) [facility]/08/11/2020 09:12 By this signature, I attest that the above diagnosis is based upon my personal examination of the slides(and/or other material indicated in the diagnosis). Charity Ashton MD Report Electronically Reviewed and Signed Out By ??Charity Ashton MD 08/14/2020 12:04:12 Intraoperative Consultation: Frozen Section Diagnosis AFR1: Right palatine tonsil - Positive for squamous cell carcinoma By Flavio Ridley M.D., Ph.D., Anthony Pérez MD BFR1: Lateral mucosa margin - No evidence of malignancy By Charity Ashton MD, Flavio Ridley M.D., Ph.D., Anthony Pérez MD CFR1: Superior mucosal margin - No evidence of malignancy By Flavio Ridley M.D., Ph.D., Anthony Pérez MD DFR1: Inferior mucosal margin - No evidence of malignancy By Flavio Ridley M.D., Ph.D., Anthony Pérez MD EFR1: Medial margin - No evidence of malignancy By Charity Ashton MD, Flavio Ridley M.D., Ph.D., Anthony Pérez MD FFR1: Inferior deep margin - No evidence of malignancy By Flavio Ridley M.D., Ph.D., Anthony Pérez MD GFR1: Deep soft palate margin - No evidence of malignancy By Flavio Ridley M.D., Ph.D., Anthony Pérez MD I personally examined the relevant preparation(s) or a microscopic image of the relevant preparation(s) for the specimen(s) while the surgical procedure was still underway and rendered or confirmed the diagnosis(es) Flavio Ridley M.D., Ph.D. (A - B - C - D - E - F - G) Microscopic Description and Comment: The tumor in part I is present at the superior margin of the specimen. The true final superior margin submitted is uninvolved by carcinoma. Microscopic examination substantiates the above cited diagnosis. The p16 immunostain (performed on part I with appropriate controls) is positive. Roberta Hawthorne MD History: The patient is a 50-year-old man presenting with a mass in the neck. ??Operative procedure: Right tonsillectomy and right partial glossectomy with right neck dissection. Specimen(s) Received: A: Right palatine tonsil B: Lateral mucosa margin C: Superior mucosal margin D: Inferior mucosal margin E: Medial margin F: Inferior deep margin G: Deep soft palate margin H: Re-resection deep soft palate I: Right tonsil J: Right neck dissection level 2 K: Right neck disssection level 3 L: Right neck dissection level 4 M: Right neck dissection level 2b Gross Description: Received in formalin labeled with the patient's identifiers and right palatine tonsil biopsy is a cassette with frozen section remnant consisting of a 0.8 x 0.6 x 0.2 cm piece of grover tissue. ??Labeled AFR1. ??Jar 0. Received in formalin labeled with the patient's identifiers and lateral mucosal margin is a cassette with frozen section remnant consisting of a 1.5 x 0.3 x 0.1 cm elongated piece of grover tissue. ??Labeled BFR1. ??Jar 0. Received in formalin labeled with the patient's identifiers and superior mucosal margin is a cassette with frozen section remnant consisting of a 0.5 x 0.3 x 0.1 cm piece of brown tissue. ??Labeled CFR1. ??Jar 0. Received in formalin labeled with the patient's identifiers and inferior mucosal margin is a cassette with frozen section remnant consisting of a 1 x 0.5 x 0.2 cm piece of brown tissue. ??Labeled DFR1. ??Jar 0. Received in formalin labeled with the patient's identifiers and medial margin is a 1.5 x 0.2 x 0.1 cm elongated piece of grover tissue. ??Labeled EFR1. ??Jar 0. Received in formalin labeled with the patient's identifiers and inferior deep margin is a cassette with frozen section remnant consisting of a 0.7 x 0.3 x 0.1 cm piece of brown tissue. ??Labeled FFR1. ??Jar 0. Received in formalin labeled with the patient's identifiers and deep soft palate margin is a cassette with frozen section remnant consisting of a 0.5 x 0.4 x 0.1 cm piece of brown tissue. ??Labeled GFR1. ??Jar 0. Received in formalin labeled with the patient's identifiers and re-resection deep soft palate is a 0.8 x 0.4 x 0.2 cm piece of brown tissue. ??Labeled H1. ??Jar 0. Received in formalin labeled with the patient's identifiers and right tonsil stitch superior is a 3.8 x 2.5 x 1.8 cm tonsil partially covered by mucosa. ??There is a suture indicating superior. ??The lateral side of the specimen is inked blue and the medial side black. ??Sectioning shows a 2.4 x 1.8 x 1.5 cm firm white mass that appears to abut the inked margins. ??Submitted entirely and sequentially from inferior to superior with each end perpendicularly sectioned labeled I1 to I8. ??Jar 0. Received in formalin labeled with the patient's identifiers and right neck dissection level 2 is a 6 x 3.5 x 2.5 cm mass with attached adipose tissue (3 x 2 x 0.8 cm). ??Sectioning through the mass shows a friable grover to white cut surface with cystic areas containing caseous/necrotic material. ??There is a possible residual rim of lymph node but virtually the entire masses concerning for tumor. ??Sectioning through the remaining tissue shows four putative lymph nodes (0.2 to 1.7 cm in greatest dimension). ??Labeled J1 to J5 - mass/putative grossly positive lymph node; J6 - three intact putative lymph nodes; J7 - a single bisected putative lymph node. ??Jar 1. Received in formalin labeled with the patient's identifiers and right neck dissection level 3 is a 2.5 x 1.5 x 1 cm piece of fibrofatty tissue. ??Multiple putative lymph nodes are found (0.2 to 1.4 cm in greatest dimension). ??Labeled K1 - four intact putative lymph nodes; K2- three intact putative lymph nodes. ??Jar 1. Received in formalin labeled with the patient's identifiers and right neck dissection level 4 is a 3 x 1.5 x 0.3 cm piece of fibrofatty tissue. ??Sectioning and palpation shows three putative lymph nodes (0.2 to 0.4 cm in greatest dimension). ??Labeled L1 - three intact putative lymph nodes; L2 - all of the remaining adipose tissue. ??Jar 0. Received in formalin labeled with the patient's identifiers and right neck dissection level 2B, Sectioning and palpation shows three putative lymph nodes (0.2 to 0.5 cm in greatest dimension). ??Labeled M1 - two intact putative lymph nodes; M2 - a single intact putative lymph node; M3 - all of the remaining adipose tissue. ??Jar 0. [facility]08/08/2020 09:31 PA(s): July Villegas, MS, PA ([facility]) ? 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 Neck (lymph node) dissection: Right II, III, IV ? Tumor site: ?Oropharynx ? [place] tonsil ? Tumor laterality: ?Right ? Tumor focality: ?Unifocal ? Tumor size: ?Greatest dimension: 2.4 cm ? 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 Margins: ?Involved by invasive tumor ? Location of closest margin, per orientation: Superior ? Lymph-vascular invasion: ?Present ? Perineural invasion: ?Not identified ? Lymph node examination: ?Number of Lymph Nodes Involved: 1 ? Number of Lymph Nodes Examined: 28 ? Laterality of lymph nodes involved: ?Ipsilateral (including midline) ? Size of Largest Metastatic Deposit: 6 cm ? Extranodal extension: ?Not identified ? Pathologic staging: Primary tumor: ?pT2: ??Tumor more than 2 cm but not more than 4 cm in ? Regional lymph nodes: ?pN1: ??Metastasis in 4 or fewer lymph nodes ? Ancillary studies: ?Type(s): p16 ? Result(s): positive ? The pathologic stage assigned here should be regarded as provisional, and may change after integration of clinical data not provided with this specimen. CAP VERSION: Pharynx 4.0.0.1 By this signature, I attest that the above diagnosis is based upon my personal examination of the slides(and/or other material). Addenda/Procedures The performance characteristics of some immunohistochemical stains, fluorescence in-situ hybridization tests and immunophenotyping by flow cytometry cited in this report (if any) were determined by the Surgical Pathology Department at [facility] as part of an ongoing senior quality control technician program and in compliance with federally mandated regulations drawn from the Clinical Laboratory Improvement Act of 1988 (CLIA '88). ??Some of these tests rely on the use of analyte specific reagents and are subject to specific labeling requirements by the US Food and Drug Administration. ??Such diagnostic tests may only be performed in a facility that is certified by the Department of Health and Human Services as a high complexity laboratory under CLIA '88. ??The FDA has determined that such clearance or approval is not necessary. ??This test is used for clinical purposes. ??It should not be regarded as investigational or for research. ??Nevertheless, federal rules concerning the medical use of analyte specific reagents require that the following disclaimer be attached to the report: This test was developed and its performance characteristics determined by the Surgical Pathology Department of [facility]. ??It has not been cleared or approved by the U. S. Food and Drug Administration. IMAGES AND SCANNED DOCUMENTS, IF INCLUDED, ONLY VIEWABLE IN PDF VERSION OF REPORT Donny Prasad MD LAB PATHOLOGY ORDERABLES Final Result Performing Organization Address City/[facility]/ZIP Co de Phone Number PATHOLOGY [facility] [address]rd Floor [place], [place] [phone] * Check Sample (08/07/2020 6:30 AM VACUUM METALIZER OPERATOR) ABO Rh A Positive [facility] OTHER 08/07/2020 6:30 AM VACUUM METALIZER OPERATOR 08/07/2020 6:42 AM VACUUM METALIZER OPERATOR Donny Prasad MD LAB BLOOD ORDERABLES Final Res ult Performing Organization Address [facility]/ZIP Co de Phone Number [facility] Department [place] [address] documented in this encounter Visit Diagnoses Diagnosis Mass in neck- Primary Mass in neck documented in this encounter Admitting Diagnoses Diagnosis Mass in neck documented in this encounter Administered Medications Inactive Administered Medications - up to 3 most recent administrations Medication Order MAR Action Action Date Dose Rate Site acetaminophen (TYLENOL) tablet 1,000 mg 1,000 mg, oral, Every 6 hours scheduled, First dose on Fri08/07/20 at 1200 Given 08/07/2020 11:23 PM VACUUM METALIZER OPERATOR 1,000 mg Given 08/07/2020 5:29 PM VACUUM METALIZER OPERATOR 1,000 mg ampicillin-sulbactam (UNASYN) 3 g/110 mL in sodium chloride 0.9% (premix) 3 g 3 g, intravenous, Administer over 30 Minutes, Every 6 hours, First dose on Fri08/07/20 at 1545, For 3 doses, Phase I & Post-op Floor, Beginning 6 hours after pre-op dose., Indications: Prophylaxis, SurgicalIndications:Prophylaxis, Surgical New Bag 08/08/2020 4:25 AM VACUUM METALIZER OPERATOR 3 g New Bag 08/07/2020 9:24 PM VACUUM METALIZER OPERATOR 3 g New Bag 08/07/2020 3:20 PM VACUUM METALIZER OPERATOR 3 g bacitracin-polymyxin B (POLYSPORIN) 500-10,000 unit/gram ointment tube 1 application 1 application (deactivated), topical, 2 times daily, First dose on Fri08/07/20 at 1245, Apply to affected area: wound, Indications: Minor Bacterial Skin Infections, wound careIndications:Minor Bacterial Skin Infections,wound care Given 08/08/2020 8:41 AM VACUUM METALIZER OPERATOR 1 application (deactivated) Given 08/07/2020 9:25 PM VACUUM METALIZER OPERATOR 1 application (deactivat ed) Given 08/07/2020 12:26 PM VACUUM METALIZER OPERATOR 1 application (deactiva corey) bacitracin-polymyxin B (POLYSPORIN) 500-10,000 unit/gram ointment tube As needed, Starting on Fri08/07/20 at 0955, Intra-Op Given 08/07/2020 9:55 AM VACUUM METALIZER OPERATOR 1 application (deactivated) Other (Comment) docusate sodium (COLACE) capsule 100 mg 100 mg, oral, 2 times daily, First dose on Fri08/07/20 at 1245, Hold for diarrhea, Indications: constipationIndicatio ns:constipation Given 08/08/2020 8:41 AM V[employer]UUM METAL[employer]ER OPERATOR 100 mg Given 08/07/2020 9:24 PM [employer] METAL[employer]ER OPERATOR 100 mg ketorolac (TORADOL) injection 30 mg 30 mg, intravenous, Once, On Fri08/07/20 at 1215, For 1 dose, Phase I, For Adult IV push, administer over 15 seconds Given 08/07/2020 11:41 AM [employer] METAL[employer]ER OPERATOR 30 mg Lactated Ringer's (LR) infusion - ADS Override Pull Starting on Fri08/07/20 at 1105, For 1 dose, Created by kim override Lactated Ringer's (LR) infusion 100 mL/hr, intravenous, Continuous, Starting on Fri08/07/20 at 1145 New Bag 08/08/2020 12:20 AM V[employer] METAL[employer]ER OPERATOR 100 mL/hr 100 mL/hr Rate/Dose Verify 08/07/2020 7:00 PM V[employer] METAL[employer]ER OPERATOR 100 mL/hr 100 mL/ hr Rate/Dose Verify 08/07/2020 6:00 PM V[employer] METAL[employer]ER OPERATOR 100 mL/hr 100 mL/ hr lidocaine-EPINEPHrine (XYLOCAINE with EPI) 1 %-1:100,000 injection As needed, Starting on Fri08/07/20 at 0900, Intra-Op, Indications: Administration of Local AnesthesiaIndications:Administra tion of Local Anesthesia Given 08/07/2020 9:00 AM V[employer]UM METAL[employer]ER OPERATOR 5 mL ondansetron (ZOFRAN) injection 4 mg 4 mg, intravenous, Administer over 2 Minutes, Every 6 hours PRN, nausea, vomiting, if not tolerating PO, Starting on Fri08/07/20 at 1214, Indications: Nausea and VomitingIndications:Nausea and Vomiting ondansetron ODT (ZOFRAN-ODT) disintegrating tablet 4 mg 4 mg, oral, Every 6 hours PRN, nausea, vomiting, Starting on Fri08/07/20 at 1214, Indications: Nausea and VomitingIndications:Nausea and Vomiting oxyCODONE (ROXICODONE) tablet 5 mg 5 mg, oral, Every 4 hours PRN, 1st line for pain, Starting on Fri08/07/20 at 1121, Indications: PainIndications:Pain Given 08/07/2020 7:02 PM [employer] METAL[employer]ER OPERATOR 5 mg oxymetazoline (AFRIN) 0.05 % nasal spray As needed, Starting on Fri08/07/20 at 0901, Intra-Op Given 08/07/2020 9:01 AM V[employer] METAL[employer]ER OPERATOR 15 mL Other (Comment) sodium chloride 0.9 % irrigation As needed, Starting on Fri08/07/20 at 0902, Intra-Op Given 08/07/2020 9:02 AM V[employer]UUM METAL[employer]ER OPERATOR 1,000 mL Surgical Site documented in this encounter Active and Recently Administered Medications Times are shown in V[employer]ER OPERATOR. Scheduled Medication Order 08/06/2020 08/07/2020 08/08/2020 acetaminophen (TYLENOL) tablet 1,000 mg 1,000 mg, oral, Every 6 hours scheduled, First dose on Fri08/07/20 at 1200 1226 (Not Given - Provider: Rojelio Badillo RN - Reason: Order parameters not met)5509 (Given - Provider: Rojelio Badillo RN)2323 (Given - Provider: Gayla Rudd RN) 0426 (Not Given - Provider: Gayla Rudd RN - Reason: Patient/family refused) ampicillin-sulbactam (UNASYN) 3 g/110 mL in sodium chloride 0.9% (premix) 3 g (COMPLETED) 3 g, intravenous, Administer over 30 Minutes, Every 6 hours, First dose on Fri08/07/20 at 1545, For 3 doses, Phase I & Post-op Floor, Beginning 6 hours after pre-op dose., Indications: Prophylaxis, Surgical 1520 (New Bag - Provider: Rojelio Badillo RN)2123 (New Bag - Provider: Gayla Rudd RN) 042 (New Bag - Provider: Gayla Rudd RN) bacitracin-polymyxin B (POLYSPORIN) 500-10,000 unit/gram ointment tube 1 application 1 application (deactivated), topical, 2 times daily, First dose on Fri08/07/20 at 1245, Apply to affected area: wound, Indications: Minor Bacterial Skin Infections, wound care 1226 (Given - Provider: Rojelio Badillo RN)2124 (Given - Provider: Gayla Rudd RN) 0841 (Given - Provider: Amanda Valenzuela RN) docusate sodium (COLACE) capsule 100 mg 100 mg, oral, 2 times daily, First dose on Fri08/07/20 at 1245, Hold for diarrhea, Indications: constipation 1226 (Not Given - Provider: Rojelio Badillo RN - Reason: Order parameters not met)2123 (Given - Provider: Gayla Rudd RN) 0841 (Given - Provider: Amanda Valenzuela RN) enoxaparin (LOVENOX) syringe 40 mg 40 mg, subcutaneous, Daily (for enoxaparin), First dose on Fri08/07/20 at 2100, Indications: Deep Vein Thrombosis Prevention 2124 (Not Given - Provider: Gayla Rudd RN - Reason: Patient/family refused) ketorolac (TORADOL) injection 30 mg (COMPLETED) 30 mg, intravenous, Once, On Fri08/07/20 at 1215, For 1 dose, Phase I, For Adult IV push, administer over 15 seconds 1141 (Given - Provider: Cornelia William RN) Continuous Medication Order 08/06/2020 08/07/2020 08/08/2020 Lactated Ringer's (LR) infusion (CANCELED) 30 mL/hr, intravenous, Continuous, Starting on Fri08/07/20 at 0645, Pre-Op 0732 (New Bag - Provider: Palmira Banegas MD)0742 (New Bag - Provider: Palmira Banegas MD)0957 (Anesthesia Volume Adjustment - Provider: Palmira Banegas MD)1115 (Stopped - Provider: Cornelia William RN) Lactated Ringer's (LR) infusion 100 mL/hr, intravenous, Continuous, Starting on Fri08/07/20 at 1145 1116 (New Bag - Provider: Cornelia William RN)1200 (Rate/Dose Verify - Provider: Rojelio Badillo RN)1400 (Rate/Dose Verify - Provider: Rojelio Badillo RN)1500 (Rate/Dose Verify - Provider: Rojelio Badillo RN)1600 (Rate/Dose Verify - Provider: Rojelio Badillo RN)1700 (Rate/Dose Verify - Provider: Rojelio Badillo RN)1800 (Rate/Dose Verify - Provider: Rojelio Badillo RN)1900 (Rate/Dose Verify - Provider: Rojelio Badillo RN) 0020 (New Bag - Provider: Gayla Rudd RN) PRN Medication Order 08/06/2020 08/07/2020 08/08/2020 bacitracin-polymyxin B (POLYSPORIN) 500-10,000 unit/gram ointment tube (CANCELED) As needed, Starting on Fri08/07/20 at 0955, Intra-Op 0955 (Given - Provider: Donny Prasad MD) lidocaine-EPINEPHrine (XYLOCAINE with EPI) 1 %-1:100,000 injection (CANCELED) As needed, Starting on Fri08/07/20 at 0900, Intra-Op, Indications: Administration of Local Anesthesia 0900 (Given - Provider: Donny Prasad MD) ondansetron (ZOFRAN) injection 4 mg(Linked Group 1) 4 mg, intravenous, Administer over 2 Minutes, Every 6 hours PRN, nausea, vomiting, if not tolerating PO, Starting on Fri08/07/20 at 1214, Indications: Nausea and Vomiting ondansetron ODT (ZOFRAN-ODT) disintegrating tablet 4 mg(Linked Group 1) 4 mg, oral, Every 6 hours PRN, nausea, vomiting, Starting on Fri08/07/20 at 1214, Indications: Nausea and Vomiting oxyCODONE (ROXICODONE) tablet 5 mg 5 mg, oral, Every 4 hours PRN, 1st line for pain, Starting on Fri08/07/20 at 1121, Indications: Pain 1902 (Given - Provider: Rojelio Badillo RN) oxymetazoline (AFRIN) 0.05 % nasal spray (CANCELED) As needed, Starting on Fri08/07/20 at 0901, Intra-Op 0901 (Given - Provider: Donny Prasad MD - Comment: surgical site) sodium chloride 0.9 % irrigation (CANCELED) As needed, Starting on Fri08/07/20 at 0902, Intra-Op 0902 (Given - Provider: Donny Prasad MD) Linked Groups Order Group 1: ondansetron ODT (ZOFRAN-ODT) disintegrating tablet 4 mgJump to med 4 mg, oral, Every 6 hours PRN, nausea, vomiting, Starting on Fri08/07/20 at 1214, Indications: Nausea and Vomiting Or ondansetron (ZOFRAN) injection 4 mgJump to med 4 mg, intravenous, Administer over 2 Minutes, Every 6 hours PRN, nausea, vomiting, if not tolerating PO, Starting on Fri08/07/20 at 1214, Indications: Nausea and Vomiting documented in this encounter Orders Medications Ordered That Mynor ht Not Have Been Administered Count Last Ordered Date First Ordered Date enoxaparin (LOVENOX) syringe 40 mg 1 2019 HYDROmorphone (DILAUDID) injection 0.2 mg 1 08/07/2020 Lactated Ringer's (LR) infusion 1 0 naloxone (NARCAN) 0.4 mg/mL injection 0.04-0.4 mg 1 08/07/2020 ondansetron (ZOFRAN) injection 4 mg 1 08/07 ondansetron ODT (ZOFRAN-ODT) disintegrating tablet 4 mg 1 08/07/2020 sodium chloride 0.9% flush 0.5-20 mL 1 03/2020 Nursing Count Last Ordered Date First Orde red Date NURSING COMMUNICATION 1 08/07/2020 documented in this encounter Care Teams Cuff Stitcher Relationship Specialty Start Date End Date No, Physician PCP - General 05/30/20 12/08/20 documented as of this encounter
--- OUTSIDE RECORDS SUMMARY | 2024-09-11 03:24 | XMS_ITS | Encounter Summary ---
Author Organization [facility] Healthcare Address [address] [address] Care Team Providers Care Head Bander And Liner Operator Name Role Phone No, Physician Primary Care Provider [phone] Encounter Details Date Type Department Care Team (Latest Contact Info) Description 08/07/2020 5:43 AM SUPERVISOR ADVERTISING [employer]PATCH [employer]ERKS - 08/08/2020 11:36 AM SUPERVISOR ADVERTISING [employer]PATCH [employer]ERKS Hospital Encounter [facility] [address] [place] [address] Donny Prasad MD [address] [place], [place] [id number] Mass in neck Discharge Disposition: Discharge to home or self care Social History Tobacco Use Types Packs/Day Years Used Date Smoking Tobacco: Never Smokeless Tobacco: Never Alcohol Use Standard Drinks/Week Comments Yes 18 (1 standard drink = 0.6 oz pu re alcohol) Sex and Gender Information Value Date Recorded Sex Assigned at Not on file Legal Sex Male 11:16 AM SUPERVISOR ADVERTISING [employer]PATCH [employer]ERKS Gender Identity Not on file Sexual Orientation Not on file documented as of this encounter Last Filed Vital Signs Vital Sign Reading Time Taken Comments Blood Pressure 102/59 08/08/2020 9:00 AM SUPERVISOR ADVERTISING [employer]PATCH [employer]ERKS Pulse 96 08/08/2020 9:00 AM SUPERVISOR ADVERTISING [employer]PATCH [employer]ERKS Temperature 36.3 ??C (97.3 ??F) 08/08/2020 9:00 AM CS T Respiratory Rate 16 08/08/2020 9:00 AM SUPERVISOR ADVERTISING [employer]PATCH [employer]ERKS Oxygen Saturation 98% 08/08/2020 9:00 AM SUPERVISOR ADVERTISING [employer]PATCH [employer]ERKS Inhaled Oxygen Concentration - - Weight 86.2 kg (190 lb) 08/07/2020 6:08 AM SUPERVISOR [employer]VERTISING [employer]ERKS Height 177.8 cm (5' 10 ) 08/07/2020 6:08 AM SUPERVISOR ADVERTISING [employer]PATCH [employer]ERKS Body Mass Index 27.26 08/07/2020 6:08 AM SUPERVISOR ADVERTISING [employer]PATCH [employer]ERKS documented in this encounter Discharge Diagnoses Diagnosis 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) (HCC) - MALIGNANT NEOPLASM OF OVERLAPPING SITES OF TONSIL Personal history of peptic ulcer disease - PERSONAL HISTORY OF PEPTIC ULCER DISEASE Secondary and unspecified malignant neoplasm of lymph nodes of head, face and neck (HCC) - SECONDARY AND UNSPECIFIED MALIGNANT NEOPLASM OF LYMPH NODES OF HEAD, FACE AND NECK Personal history of nicotine dependence - PERSONAL HISTORY OF NICOTINE DEPENDENCE documented in this encounter Discharge Summaries * Ashley Johnson PA - 08/07/2020 6:56 PM CST Inpatient Discharge Summary BRIEF OVERVIEW Admitting Provider: Donny Prasad MD Discharge Provider: Donny Prasad MD Primary Care Physician at Discharge: No, Physician [phone] Admission Date: 08/07/2020 Discharge Date: 08/08/2020 Admission Location: [facility] Problems/Diagnoses: Principal Problem: Mass in neck Resolved [...] needed for pain Commonly known as: TYLENOL dnxjkcymgzekd-vkknpsc-naxkuxic 250-250-65 mg per tablet Take 1 tablet [...] Donny Prasad MD at 08/08/2020 10:17 AM SUPERVISOR ADVERTISING DISPATCH CLERKS [employer] documented in this encounter Discharge Instructions * Discharge Instructions* Ashley Johnson PA - 08/08/2020 10:00 AM SUPERVISOR ADVERTISING DISPATCH CLERKS ENT Post Operative Discharge Instructions Procedure: right [...] fever, or vomiting, call your doctor. Use [phone] if you are calling during weekday business hours (8am-5pm Friday through Friday), otherwise call [phone] and ask for the ENT resident iron miner blasting. How to manage your Aroldo-Diego (TAMI) drain: [...] to see Melisa Langford, the ENT physician prosthetics assistant for removal, when the drain has had less than 25mL over 24 hours. * If your drain falls out/is pulled out, leave it out. You should cover the opening with a dry dressing and call your surgeon's nurse when you get a chance. Clinic number: [phone] Diet: Soft Activity: Do NOT LIFT ANYTHING [...] Dr. Prasad's clinic on 08/16/2020 at 11AM. [address] [address] If you do not have a follow-up appointment, call to schedule one. OTHER FOLLOW UP: 1. PCP - for management of all chronic illnesses Future Appointments Date Time Provider Department Center 08/16/2020 11:00 AM Donny Prasad MD [facility] Phone numbers ??? Appointment Scheduling: ??? After hours: Call and ask for the ENT resident iron miner blasting. Questions: If you have any concerns or questions, or develop worrisome symptoms such as worsening pain or swelling, bleeding, fever, or vomiting, call your doctor. [employer] documented in this encounter Medications at Time [...] in this encounter Progress Notes * Arabella Butler RN - 08/08/2020 10:32 AM CST 08/08/20 1032 [...] identified and pt. Agrees with the plan. [employer] * Arabella Butler RN - 08/08/2020 10:29 AM CST CM Initial Assessment Interview Note Information Obtained From: Patient (08/08/20 1025) Admission Source: Non Health Care Facility Point of Origin Impression: 50 yo M w/ right neck mass concerning for malignancy now s/p right radical tonsil, RND (2-4), and ligation of right lingual and facial arteries. Plan Includes: Safe discharge home with family support. Primary Source of Transportation: Patient mother will be provided transport home when discharged. Health Insurance Coverage: [facility] Choice Select Prescription Coverage: Yes Pharmacy: [facility] Primary Care Provider: No, Physician Patient is currently trying to find a PCP. He use to have a Dr. Silverman several years ago but no longer has this physician. Prior to Admission: Primary Caregiver: Self Support System: Parent Support system contact info (name, phone, availablity): Diamond Mosquera (mother) [phone] Home Care Services: No Durable Medical Equipment: None Living Arrangements: Parent Type of Residence: Private residence Steps in home? : Yes, Outside of home Number of steps outside:: 3 steps (08/08/20 1025) Potential discharge needs include: No needs identified Dialysis: Dialysis: No (08/08/20 1025) Behavioral Health Services: Behavioral Health Services: No (08/08/20 1025) Patient expects to be Discharged to: Private residence, (08/08/20 1025) Patient's Identified Problem/Goal Problem: Ensure acute medical [...] Collaboration with patient, MD, direct care nurse, Workshop Manager, Nurse Coordinator and other members of the health care team to assure needed interventions completed. 2. Return patient to optimal level of self-care post discharge. 3. [facility] Manager will follow for Discharge Planning - interventions [...] with the aftercare plan. Arabella Butler RN [employer] * Rosalie Gilliam MD - 08/08/2020 9:03 [...] drainage. Neck: Soft and flat. Incision c/d/i. ATMI serosanguinous. Cardiovascular: Extremities are warm and well [...] Physician, PGY-2 Otolaryngology-Head & Neck Surgery C: [phone] For questions please reach out to: Fri - Fri Daytime: IVAN Mast at [phone] Fri Daytime (backup Fri-Fri Days): Clarissa Nichols MD at [phone] Weekends & After 6pm: ENT Consult Cosigned by Donny Prasad MD at 08/08/2020 12:44 PM SUPERVISOR ADVERTISING DISPATCH CLERKS [employer] * Per Page MD - 08/07/2020 6:20 [...] - TAMI care - likely dispo POD1 [employer] * Rojelio Badillo RN - 08/07/2020 12:28 PM CST Frequent safety and comfort rounds continue. Orders and/or nursing care completed as indicated. Patient monitored for response to intervention and treatment(s).Wound care, TAMI drain care . Education provided includes Acivity, diet, need to void. . Patient and Mom responsive to teaching.. Will continue to monitor. [employer] documented in this encounter H&P Notes * Per Page MD - 08/07/2020 6:53 AM CST I have reviewed the H&P, examined the patient, and endorse the findings as written. Plan of Care : Based on the above findings, I consider Paty Matute to be an acceptable risk for : Procedure(s): TONSILLECTOMY WITH LASER CO2 OMNIGUDE (H.A) EXCISION CYST/LESION/MASS - NECK DISSECTION RADICAL NECK GLOSSECTOMY - PARTIAL Cosigned by Donny Prasad MD at 08/07/2020 7:29 AM SUPERVISOR ADVERTISING DISPATCH CLERKS [employer]VERT[employer] Source Note - Donny Prasad MD - 07/12/2020 1:40 PM SUPERVISOR ADVERTISING DISPATCH CLERKS [facility] Department of Otolaryngology - Head & Neck Surgery Consultation Report Name: Paty Matute Date of : 1970 Referring Physician: Joseph Shafer MD CHIEF COMPLAINT: Right neck mass Problem List Other Mass in neck - Primary Overview Added automatically from request for surgery [id number] HISTORY OF PRESENT ILLNESS: Mr. Matute is [...] file Gets together: Not on file Attends voodoo service: Not on file Active member of [...] Reports: CYTOPATHOLOGY REPORT FINAL Patient Name: ?? MATUTE PATY Emeka Gender: ??M : ??1970 (Age: 50) Address: ??[address] [place], [place] ??[address] Hospital #: ??[id number] Taken:06/19/2020 Received:06/19/2020 Reported: 06/22/2020 Patient Type: [facility] Ancillary ? Service: Radiology Location: [facility] Physician(s): ??MD Joseph Mckinney M.D. [...] obtained. The study was interpreted on the Open Wager workstation. The mean liver SUV (reported for training and quality manager purposes) is 1.9. ?? The total scanned [...] hesitate to contact my office. Warm regards, [employer]VERTISING [employer]ERKS documented in this encounter Miscellaneous Notes * [...] pain control, I&O's, vitalsigns, safety, and rest. [employer]VERT[employer] * Brief Op Note - Per Page MD - 08/07/2020 7:56 AM SUPERVISOR ADVERTISING DISPATCH CLERKS Operative Progress Note Surgical Team: Surgeon(s) and Role: * Donny Prasad MD - Primary * Per Page MD - Resident - Assisting Anesthesiologist: Stefanie Ramirez MD Butcher Assistant: Palmira Banegas MD Cattle Rancher: Christina Samson RN Scrub: Lindsey Lindsey ST [...] biopsy SURGICAL PATHOLOGY Donny Prasad MD 08/07/2020 0837 I : RIGHT TONSIL STITCH SUPERIOR Tissue [...] SURGICAL PATHOLOGY Donny Prasad MD 08/07/2020 0937 M : right neck disection level 2b [...] Donny Prasad MD at 08/08/2020 8:50 AM SUPERVISOR ADVERTISING DISPATCH CLERKS [employer]VERTISING [employer]PATCH [employer]ERKS [employer]VERT[employer] * Op Note - Donny Prasad MD - 08/07/2020 12:00 AM CST Surgeon Donny Prasad MD Despatch Clerk Surgeon Mina Page. Preoperative Diagnosis Right neck [...] then turned 90 degrees away from the logistics vice president. Before we began surgery, we performed a final timeout. We started by performing a direct laryngoscopy. It was pretty evident that there was a tumor in the superior pole. 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 We used a Quoc-Justin and then themicroscope was brought into to the field. We then used electrocautery, started the cuts superiorly along the superior tonsillar pole and deepened these through the mucosa laterally. We took a cuff ofmusculature around this superiorly. We were pretty close to the tumor here in this area so we ultimately re-resected some before taking our final margin. We continued through the constrictors and into the parapharyngeal space. We took a cuff of constrictor pharyngeal musculature. However, the glossopharyngeal nerve could be preserved as the tumor was only involving the superior pole. The inferiorpole was now transected. We then elevated some [...] the skin. Patient was now returned to logistics vice president. The patient tolerated the procedure well. Statement of Presence I was present for entire procedure. Job ID/VF Job ID: [id number] [employer] documented in this encounter Plan of Treatment Not on file documented as of this encounter Procedures Procedure Name Priority Date/Time Associated Diagnosis Comments SURGICAL PATHOLOGY Routine 08/07/2020 8: 23 AM SUPERVISOR ADVERTISING [employer]PATCH [employer]ERKS Mass in neck TONSILLECTOMY 08/07/2020 7:32 AM SUPERVISOR ADVERTISING DISPATCH CLERKS Mass in neck DISSECTION RADICAL NECK 08/07/2020 7:32 AM SUPERVISOR ADVERTISING DISPATCH CLERKS Mass in neck EXCISION CYST/LESION/MASS - NECK 08/07/2020 7:32 AM SUPERVISOR ADVERTISING DISPATCH CLERKS Mass in neck B CHECK SAMPLE STAT 08/07/2020 6:30 AM SUPERVISOR ADVERTISING DISPATCH CLERKS documented in this encounter Results * Surgical pathology (08/07/2020 8:23 AM SUPERVISOR ADVERTISING DISPATCH CLERKS) Tissue (Soft tissue biopsy) 08/07/2020 8:23 AM SUPERVISOR ADVERTISING DISPATCH CLERKS Comment:FRESH-ENT Tissue (Soft tissue biopsy) 08/07/2020 8:24 AM SUPERVISOR ADVERTISING DISPATCH CLERKS Comment:FRESH-ENT Tissue (Soft tissue biopsy) 08/07/2020 8:25 AM SUPERVISOR ADVERTISING DISPATCH CLERKS Comment:FRESH-ENT Tissue (Soft tissue biopsy) 08/07/2020 8:26 AM SUPERVISOR ADVERTISING DISPATCH CLERKS Comment:FRESH-ENT Tissue (Soft tissue biopsy) 08/07/2020 8:26 AM SUPERVISOR ADVERTISING DISPATCH CLERKS Comment:FRESH-ENT Tissue (Soft tissue biopsy) 08/07/2020 8:27 AM SUPERVISOR ADVERTISING DISPATCH CLERKS Comment:FRESH-ENT Tissue (Soft tissue biopsy) 08/07/2020 8:27 AM SUPERVISOR ADVERTISING DISPATCH CLERKS Comment:FRESH-ENT Tissue (Soft tissue biopsy) 08/07/2020 8:37 AM SUPERVISOR ADVERTISING DISPATCH CLERKS Comment:FRESH-ENT Tissue (Soft tissue biopsy) 08/07/2020 8:38 AM SUPERVISOR ADVERTISING DISPATCH CLERKS Comment:FRESH-ENT Tissue (Soft tissue biopsy) 08/07/2020 9:36 AM SUPERVISOR ADVERTISING DISPATCH CLERKS Comment:FRESH-ENT Tissue (Soft tissue biopsy) 08/07/2020 9:37 AM SUPERVISOR ADVERTISING DISPATCH CLERKS Comment:FRESH-ENT Tissue (Soft tissue biopsy) 08/07/2020 9:37 AM SUPERVISOR ADVERTISING DISPATCH CLERKS Comment:FRESH-ENT Tissue (Soft tissue biopsy) 08/07/2020 9:38 AM SUPERVISOR ADVERTISING DISPATCH CLERKS Comment:FRESH-ENT Narrative PATHOLOGY [facility] - 08/14/2020 12:04 PM SUPERVISOR ADVERTISING DISPATCH CLERKS EPIC results best viewed via link to PDF [facility] Palmira Padilla [facility] [place] [address] SURGICAL PATHOLOGY REPORT FINAL Patient Name: ?? PATY MATUTE Gender: ??M : ??1970 (Age: 50) Address: ??[address] [place] [address] Hospital #: ??[id number] Taken:08/07/2020 Received:08/07/2020 Reported: 08/14/2020 Patient Type: [facility] OP In Bed ?? Service: Otolaryngology Location: [place] [address] Physician(s): ??Donny Prasad M.D. Diagnosis: A. ??Oropharynx, [...] of malignancy in ten lymph nodes (0/10) [facility]/08/11/2020 09:12 By this signature, I attest [...] of the remaining adipose tissue. ??[facility] 09:31 PA(s): July Villegas MS, PA ([facility]) ? 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 Neck (lymph node) dissection: Right II, III, IV ? Tumor site: ?Oropharynx ? [place] tonsil ? Tumor laterality: ?Right ? Tumor [...] determined by the Surgical Pathology Department at [facility] as part of an ongoing production quality analyst program and in compliance with federally mandated [...] determined by the Surgical Pathology Department of [facility]. ??It has not been cleared or approved by the U. S. Food and Drug Administration. IMAGES AND SCANNED DOCUMENTS, IF INCLUDED, ONLY VIEWABLE IN PDF VERSION OF REPORT Donny Prasad MD LAB PATHOLOGY ORDERABLES Final Result Performing Organization Address [facility]/State/ZIP Co de Phone Number PATHOLOGY [facility] 3rd Floor [place], [place] [phone] * Check Sample (08/07/2020 6:30 AM SUPERVISOR ADVERTISING DISPATCH CLERKS) ABO Rh A Positive [facility] OTHER 08/07/2020 6:30 AM SUPERVISOR ADVERTISING DISPATCH CLERKS 08/07/2020 6:42 AM SUPERVISOR ADVERTISING DISPATCH CLERKS Donny Prasad MD LAB BLOOD ORDERABLES Final Res ult Performing Organization Address [facility] Co de Phone Number [facility] Department [place] [address] documented in this encounter Visit Diagnoses Diagnosis Mass in neck- Primary documented in this encounter Admitting Diagnoses Diagnosis Mass in neck documented in this encounter Administered Medications Inactive Administered Medications - up to 3 most recent administrations Medication Order MAR Action Action Date Dose Rate Site acetaminophen (TYLENOL) tablet 1,000 mg 1,000 mg, oral, Every 6 hours scheduled, First dose on Fri08/07/20 at 1200 Given 08/07/2020 11:23 PM SUPERVISOR ADVERTISING [employer]PATCH [employer]ERKS 1,000 mg Given 08/07/2020 5:29 PM SUPERVISOR ADVERTISING DISPATCH CLERKS 1,000 mg ampicillin-sulbactam (UNASYN) 3 g/110 mL in sodium chloride 0.9% (premix) 3 g 3 g, intravenous, Administer over 30 Minutes, Every 6 hours, First dose on Fri08/07/20 at 1545, For 3 doses, Phase I & Post-op Floor, Beginning 6 hours after pre-op dose., Indications: Prophylaxis, SurgicalIndications:Prophylaxis, Surgical New Bag 08/08/2020 4:25 AM SUPERVISOR ADVERTISING [employer]PATCH [employer]ERKS 3 g New Bag 08/07/2020 9:24 PM SUPERVISOR ADVERTISING [employer]PATCH [employer]ERKS 3 g New Bag 08/07/2020 3:20 PM SUPERVISOR ADVERTISING DISPATCH CLERKS 3 g bacitracin-polymyxin B (POLYSPORIN) 500-10,000 unit/gram ointment tube 1 application 1 application (deactivated), topical, 2 times daily, First dose on Fri08/07/20 at 1245, Apply to affected area: wound, Indications: Minor Bacterial Skin Infections, wound careIndications:Minor Bacterial Skin Infections,wound care Given 08/08/2020 8:41 AM SUPERVISOR ADVERTISING DISPATCH CLERKS 1 application (deactivated) Given 08/07/2020 9:25 PM SUPERVISOR ADVERTISING DISPATCH CLERKS 1 application (deactivat ed) Given 08/07/2020 12:26 PM SUPERVISOR ADVERTISING DISPATCH [employer]ERKS 1 application (deactiva corey) docusate sodium (COLACE) capsule 100 mg 100 mg, oral, 2 times daily, First dose on Fri08/07/20 at 1245, Hold for diarrhea, Indications: constipationIndications:constipation Given 08/08/2020 8:41 AM SUPERVISOR ADVERTISING [employer]PATCH [employer]ERKS 100 mg Given 08/07/2020 9:24 PM SUPERVISOR ADVERTISING DISPATCH CLERKS 100 mg ketorolac (TORADOL) injection 30 mg 30 mg, intravenous, Once, On Fri08/07/20 at 1215, For 1 dose, Phase I, For Adult IV push, administer over 15 seconds Given 08/07/2020 11:41 AM SUPERVISOR ADVERTISING DISPATCH [employer]ERKS 30 mg Lactated Ringer's (LR) infusion - ADS Override Pull Starting on Fri08/07/20 at 1105, For 1 dose, Created by cabinet override Lactated Ringer's (LR) infusion 100 mL/hr, intravenous, Continuous, Starting on Fri08/07/20 at 1145 New Bag 08/08/2020 12:20 AM SUPERVISOR ADVERTISING DISPATCH CLERKS 100 mL/hr 100 mL/hr Rate/Dose Verify 08/07/2020 7:00 PM SUPERVISOR ADVERTISING [employer]PATCH [employer]ERKS 100 mL/hr 100 mL/ hr Rate/Dose Verify 08/07/2020 6:00 PM SUPERVISOR ADVERTISING DISPATCH [employer]ERKS 100 mL/hr 100 mL/ hr ondansetron (ZOFRAN) injection 4 mg 4 mg, [...] 1121, Indications: PainIndications:Pain Given 08/07/2020 7:02 PM SUPERVISOR ADVERTISING [employer]PATCH [employer]ERKS 5 mg documented in this encounter Active and Recently Administered Medications Times are shown in SUPER[employer]OR ADVERTISING [employer]PATCH [employer]ERKS. Scheduled Medication Order 08/06/2020 08/07/2020 08/08/2020 acetaminophen (TYLENOL) tablet 1,000 mg 1,000 mg, oral, Every 6 hours scheduled, First dose on Fri08/07/20 at 1200 1226 (Not Given - Provider: Rojelio Badillo RN - Reason: Order parameters not met)1729 (Given - Provider: Rojelio Badillo RN)2323 (Given [...] 1520 (New Bag - Provider: Rojelio Badillo RN)2124 (New Bag - Provider: Gayla Rudd RN) 0425 (New Bag - Provider: Gayla Rudd RN) bacitracin-polymyxin B (POLYSPORIN) 500-10,000 unit/gram ointment tube 1 application 1 application (deactivated), topical, 2 times daily, First dose on Fri08/07/20 at 1245, Apply to affected area: wound, Indications: Minor Bacterial Skin Infections, wound care 1226 (Given - Provider: Rojelio Badillo RN)2125 (Given - Provider: Gayla Rudd RN) 0841 (Given - Provider: Amanda Valenzuela, YULISSA) docusate sodium (COLACE) capsule 100 mg 100 mg, oral, 2 times daily, First dose on Fri08/07/20 at 1245, Hold for diarrhea, Indications: constipation 1226 (Not Given - Provider: Rojelio Badillo RN - Reason: Order parameters not met)2123 (Given - Provider: Gayla Rudd RN) 0841 (Given - Provider: Amanda Valenzuela, YULISSA) enoxaparin (LOVENOX) syringe 40 mg 40 mg, [...] Palmira Banegas MD)1115 (Stopped - Provider: Cornelia William, YULISSA) Lactated Ringer's (LR) infusion 100 mL/hr, intravenous, [...] Starting on Fri08/07/20 at 1121, Indications: Pain 190 (Given - Provider: Rojelio Badillo RN) oxymetazoline [...] Count Last Ordered Date First Ordered Date bacitracin-polymyxin B (POLY SPORIN) 500-10,000 unit/gram ointment tube 1 08/07/2020 enoxaparin (LOVENOX) syringe 40 mg 1 2019 HYDROmorphone (DILAUDID) injection 0.2 mg 1 08/07/2020 Lactated Ringer's (LR) infusion 1 0 lidocaine-EPINEPHrine (XYLOC LINSEY with EPI) 1 %-1:100,000 injection 1 08/07/2020 naloxone (NARCAN) 0.4 mg/mL injection 0.04-0.4 mg 1 08/07/2020 ondansetron (ZOFRAN) injection 4 mg 1 08/07 ondansetron ODT (ZOFRAN-ODT) disintegrating tablet 4 mg 1 08/07/2020 oxymetazoline (AFRIN) 0.05 % nasal spray 1 08/07/2020 sodium chloride 0.9 % irrigation 1 08/07/20 20 sodium chloride 0.9% flush 0.5-20 mL 1 03/2020 Nursing Count Last Ordered Date First Orde red Date NURSING COMMUNICATION 1 08/07/2020 documented in this encounter Care Teams Head Bander And Liner Operator Relationship Specialty Start Date End Date No, Physician PCP - General 05/30/20 12/08/20 documented as of this encounter
--- OUTSIDE RECORDS SUMMARY | 2024-09-11 03:24 | XMS_ITS | Encounter Summary ---
Author Organization [facility] Address [address] [place] [address] Phone Care Team Providers Care Biofuels Production Manager Name Role Phone No, Physician Primary Care Provider [phone] Reason for Visit * Reason Comments Neck Mass Encounter Details Date Type Department Care Team (Late st Contact Info) Description 07/12/2020 1:40 PM PRODUCTION WELDER [facility] [address] [facility] 11th [place] [address] [place] [address] Donny Prasad MD [address] [place], [place] [id number] Mass in neck (Primary Dx) Social History Tobacco Use Types Packs/Day Years Used Date Smoking Tobacco: Former Sex and Gender Information Value Date Recorded Sex Assigned at Not on file Legal Sex Male 11:16 AM PRODUCTION WELDER Gender Identity Not on file Sexual Orientation Not on file documented as of this encounter Last Filed Vital Signs Vital Sign Reading Time Taken Comments Blood Pressure - - Pulse - - Temperature - - Respiratory Rate - - Oxygen Saturation - - Inhaled Oxygen Concentration - - Weight 86.7 kg (191 lb 3.2 oz) 07/12/2020 1:33 P M PRODUCTION WELDER Height - - Body Mass Index 27.43 07/04/2020 8:31 AM PRODUCTION WELDER documented in this encounter Progress Notes * Donny Prasad MD - 07/12/2020 1:40 PM CST [facility] Department of Otolaryngology - Head & Neck Surgery Consultation Report Name: Paty Deluna Date of : 1970 Referring Physician: Joseph Shafer MD CHIEF COMPLAINT: Right neck mass Problem List Other Mass in neck - Primary Overview Added automatically from request for surgery [id number] HISTORY OF PRESENT ILLNESS: Mr. Deluna is [...] file Gets together: Not on file Attends spiritism service: Not on file Active member of [...] Gender: ??M : ??1970 (Age: 50) Address: ??[address] [place] [address] Hospital #: ??[id number] Taken:06/19/2020 Received:06/19/2020 Reported: 06/22/2020 Patient Type: [facility] Ancillary ? Service: Radiology Location: [facility] Physician(s): ??MD Joseph Mckinney M.D. FINAL DIAGNOSIS A. ??Neck mass, right, level 2, ultrasound guided fine needle aspiration: ? - Suspicious for squamous cell carcinoma (see comment) - Lymphoid component present Radiology Reports: EXAMINATION: TUMOR FDG-PET/CT IMAGING ?? DATE OF STUDY: 06/27/2020 ?? SCANNER: P4T ?? RADIOPHARMACEUTICAL: 15.7 mCi F-18 Fluorodeoxyglucose (FDG) [...] obtained. The study was interpreted on the [employer] workstation. The mean liver SUV (reported for clinical quality assurance specialist purposes) is 1.9. ?? The total scanned [...] hesitate to contact my office. Warm regards, UCTION WELDER documented in this encounter Plan of Treatment Not on file documented as of this encounter Visit Diagnoses Diagnosis Mass in neck- Primary documented in this encounter Care Teams Biofuels Production Manager Relationship Specialty Start Date End Date No, Physician PCP - General 05/30/20 12/08/20 documented as of this encounter
--- OUTSIDE RECORDS SUMMARY | 2024-09-11 03:24 | XMS_ITS | Encounter Summary ---
Author Organization [facility] Address [address] [place] [address] Care Team Providers Care Superintendent Geophysical Laboratory Name Role Phone Unknown, Notinfile Primary Care Provider Unavail able No, Physician Unavailable Encounter Details Date Type Department Care Team (Late st Contact Info) Description 12/10/2020 7:34 AM CDT Anesthesia Event [facility] Operating Room [address] [facility] [place] [address] Ken Bobby MD [address] [facility] [id number] [place] [address] Trace Leon MD [address] [place] [address] Anesthesia Record Procedure Summary Procedure Name Responsible Anesthesiologist Anesthesia Start Time Anesthesia Stop Time INCISION AND DRAINAGE - RADIUS/ULNA (Left: Arm Lower) Ken Bobby MD 12/10/20 0734 12/10/20 1120 Events Date Time Event Comment 12/10/2020 0609 In Preop 0734 An Start 0738 In Room 0741 An Start Data 0750 An Induction The patient was reevaluated immediately before moderate or deep sedation use and before anesthesia induction. 0751 An Intubation 0809 0823 Proc Start 1054 Proc Fin 1106 An Extubation 1106 Out of Room 1120 Handoff to RN I completed my handoff [...] disposition at the time of handoff: PACU 1120 An Stop Meds Name Total lidocaine (cardiac) syringe 2 % 80 mg propofol 200 mg fentaNYL 250 mcg succinylcholine 100 mg rocuronium 50 mg phenylephrine 100 mcg/mL 1,200 mcg ondansetron PF (ZOFRAN) 2 mg/mL injectio n 4 mg glycopyrrolate 0.4 mg neostigmine injection 1 mg/mL 2 mg ceFAZolin 2,000 mg phenylephrine infusion (100 mcg/mL) 5.23 mg dexmedeTOMIDine vial 100 mcg/mL 8 mcg Lactated Ringer's (LR) infusion 2,000 mL * Agents Name O2% N2O O2 Air Sevoflurane Inspired Sevoflurane * Blood No blood administrations on file. Lines, Drains, and Airways Type Details Placement Removal Peripheral IV Placement Date: 12/09/20; Placement Time: 1943; Catheter Size: 16 G; Orientation: Right; Location: Antecubital; Inserted by: EMS; Removal Date: 12/18/20; Removal Time: 1237; Removal Reason: Removed by patient 12/09/201943 by Nicole Moore RN 12/18/201236 by Deborah Oneal RN Urethral Catheter Placement Date: 12/09/20; Placement Time: 2121; Type: Non-latex; Size: 16 Fr.; Balloon Size: 10 mL; Urine Returned: Yes; Removal Date: 12/14/20; Removal Time: 1042; Removal Reason: Per order 12/09/202121 by Nicole Moore RN 12/14/20 104 by Deborah Oneal RN ETT Placement Date: 12/10/20; Placement Time: 0751 (created via procedure documentation); Mask Ventilation: 0; Technique: Video laryngoscopy; Type: ETT - single; Single Lumen Tube Size: 8 mm; Cuffed: Yes; Laryngoscope: Sofía; Blade Size: 4; Location: Oral; Insertion Attempts: 1; Placement Verification: Auscultation, Capnometry; Removal Date: 12/10/20; Removal Time: 1106 12/10/20 0751 by Jose Brar CRNA 12/10/20 1106 by Jose Brar CRNA RETIRED Surgical Site 12/10/20; 1047; Le ft; Arm; 08/03/24 (Retired LDA, Removed/Completed by Epic with [...] on file 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 Gender Identity Not on file Sexual Orientation Not on file documented as of this encounter OR Notes * Anesthesia Postprocedure Evaluation - Ken Bobby MD - 12/10/2020 12:20 PM CDT Patient: Marco A Deluna Procedure Summary Date: 12/10/20 Room / Location: [facility] OR POD 2 ROOM 204 / [facility] OR POD 2 Anesthesia Start: 0734 Anesthesia Stop: 1120 Procedures: INCISION AND DRAINAGE - RADIUS/ULNA (Left Arm Lower) IRRIGATION AND DEBRIDEMENT - LEG/FOOT (Right Lower Extremity) APPLICATION EXTERNAL FIXATION DEVICE LOWER EXTREMITY (Right Leg Lower) CLOSED REDUCTION PERCUTANEOUS PINNING - CALCANEUS (Left Foot) Diagnosis: Pilon fracture of right tibia, closed, initial encounter Open displaced fracture of body of right calcaneus, initial encounter Laceration of left forearm, initial encounter (Pilon fracture of right tibia, closed, initial encounter [S82.871A]) (Open displaced fracture of body of right calcaneus, initial encounter [S92.011B]) (Laceration of left forearm, initial encounter [S51.812A]) Surgeons: Sachin Odonnell MD Responsible Provider: Ken Bobby MD Anesthesia Type: general ASA Status: 2 Anesthesia Type: No value filed. Last vitals BP 118/74 (BP Location: Right arm, Patient Position: HOB 30 degrees) Pulse 87 Temp 36.1 ??C (97 ??F) (Temporal) Resp 12 SpO2 100% Anesthesia Post Evaluation Patient location during evaluation: PACU Patient participation: complete - patient participated Level of consciousness: arouses rn bone marrow transplant Pain management: adequate Airway patency: adequate Evidence of recall: no Anesthetic complications: no Cardiovascular status: acceptable Respiratory status: acceptable and nasal cannula Hydration status: acceptable Pt is: normothermic Nausea/Vomiting status: none * Anesthesia Procedure Notes - Jose Brar CRNA - 12/10/2020 8:24 AM CDTAssociated Order(s): Airway Airway Patient location: OR Date/time: 12/10/2020 7:51 AM Indications for airway management: anesthesia Difficult airway: no Staff: Supervising provider: Ken Bobby MD Placed by: BRAND STRATEGY MANAGER: Jose Brar CRNA Emergent airway documentation: Risks and benefits discussed: yes Consent obtained: yes Consent given by: patient Airway prep: Preoxygenated: yes Patient position: sniffing MILS maintained throughout: yes (c collar left in place for intubation) Mask difficulty assessment: 0 - not attempted Spontaneous ventilation during airway: absent Sedation level during airway: GA Final airway details: Final airway type: endotracheal airway Tube type: ETT ETT size: 8.0 mm Cuffed: yes Technique used for successful ETT placement: video laryngoscopy Devices/Methods used in placement: intubating stylet Insertion site: oral Blade type: Sofía Video blade type: CMAC Blade size: 4 Cormack-Lehane (video): grade IIa - partial view of glottis Cuff inflated with: air ETT to lips: 24 cm Placement verified by: auscultation and CO2 detection Airway secured with: silk tape Number of attempts: 1 * Anesthesia Preprocedure Evaluation - Ken Bobby MD - 12/10/2020 8:09 AM CDT Anesthesia Evaluation Marco A Deluna is a 50 y.o. male Procedure(s): INCISION AND DRAINAGE - RADIUS/ULNA IRRIGATION AND DEBRIDEMENT - LEG/FOOT APPLICATION EXTERNAL FIXATION DEVICE LOWER EXTREMITY CLOSED REDUCTION PERCUTANEOUS PINNING - CALCANEUS Pre-Op Diagnosis Codes: * Pilon fracture of [...] No medications reported. Current Facility-Administered Medications: ??? [Oct] acetaminophen (TYLENOL) tablet 1,000 mg, 1,000 mg, oral, Q6H MARILUZ ??? dextrose 5% and Lactated Ringer's infusion, 125 mL/hr, intravenous, Continuous, Last Rate: 125 mL/hr at 12/09/202330, 125 mL/hr at 04/10/21 2331 ??? dextrose 5% and sodium chloride 0.45% infusion (premix), 75 mL/hr, intravenous, Continuous ??? [OCT Hold] fentaNYL (SUBLIMAZE) preservative free injection 50 mcg, 50 mcg, intravenous, Q1H PRN, 50 mcg at 12/09/202127 ??? [OCT Hold] HYDROmorphone (DILAUDID) injection 0.2 mg, 0.2 mg, intravenous, Q4H PRN ??? Lactated Ringer's (LR) infusion, 30 mL/hr, intravenous, Continuous, Last Rate: 30 mL/hr at 12/10/20722, 30 mL/hr at 12/10/20722 ??? [OCT Hold] lidocaine (LIDODERM) 5 % patch 1 patch, 1 patch, transdermal, Daily ??? [OCT Hold] oxyCODONE (ROXICODONE) tablet 5 mg, 5 mg, oral, Q4H PRN ??? [OCT Hold] sodium chloride 0.9% flush 0.5-20 mL, 0.5-20 mL, intra-catheter, Q8H MARILUZ ??? [OCT Hold] sodium chloride 0.9% flush 0.5-20 mL, 0.5-20 mL, intra-catheter, PRN Social History Tobacco Use Smoking Status Current Every Day Smoker Smokeless Tobacco Never Used Substance and Sexual Activity Alcohol Use Yes Substance and Sexual Activity Drug Use Not on file No family history on file. Vitals: 12/10/20 0720 12/10/20 0725 12/10/20 0730 BP: 113/80 Pulse: 118 96 98 Resp: 14 17 16 Temp: SpO2: 97% 99% 96% PT: 12/09/2020: 12.4 sec INR: 12/09/2020: 1.1 APTT: 12/09/2020: 26 sec* Hgb A1C: No results found for requested labs within last 720 hours. CBC RBC: 12/09/2020: 4.19 M/cumm* RDW: No results found for requested labs within last 720 hours. MCHC: 12/09/2020: 33.2 g/dL MCH: 12/09/2020: 32.0 pg MCV: 12/09/2020: 96.4 fL Hct: 12/09/2020: 40.4 % Hgb: 12/09/2020: 13.4 g/dL WBC: 12/09/2020: 18.9 K/cumm* MPV: 12/09/2020: 9.0 fL* Platelets: 12/09/2020: 279 K/cumm RDW CV: 12/09/2020: 13.4 % RDW Sd: 12/09/2020: 48.0 fL BMP Glucose: 12/10/2020: 122 mg/dL Calcium: 12/09/2020: 8.6 mg/dL Sodium: 12/09/2020: 138 mmol/L Potassium: 12/09/2020: 3.9 mmol/L CO2: 12/09/2020: 25 mmol/L Chloride: 12/09/2020: 105 mmol/L BUN: 12/09/2020: 12 mg/dL Creatinine: 12/09/2020: 1.2 mg/dL DOS Physical Exam Medical history, medications, and allergies reviewed. Attestation: This PAT evaluation 12/10/2020. Airway Exam: Mallampati: III Cervical ROM: c - collar in place TM distance: 3 Patient presents with poor mouth opening. Jaw ROM: limited Cardiovascular Exam: Rate: regular Rhythm: regular Pulmonary Exam: LCTA, bilat Dental Exam: Poor dentition Current state: (Groggy but participatory) Lines/Drains/Tubes/Devices Neuro devices: C-collar Anesthesia Plan ASA 2 My patient is approved for the Anesthesia Controlled Medication protocol when under care of a BRAND STRATEGY MANAGER Planned anesthesia: General Team communication plan: oral ET tube Induction: Induction: RSI. Postoperative Plan: Postoperative administration opioids intended. Patient's planned disposition post procedure is Floor. Informed Consent: Discussed plan with BRAND STRATEGY MANAGER. Anesthesia plan and risks discussed with patient. [...] Procedure Name Priority Date/Time Associated Diagnosis Comments DC AN PROCEDURE PLACEHOLDER Routine 12/10/2020 8:24 AM CDT DC AN ELECTIVE ENDOTRACHEAL AIRWAY Routine 12/10/2020 8:24 AM CDT documented in this encounter Results * DC AN ELECTIVE ENDOTRACHEAL AIRWAY, DC AN PROCEDURE PLACEHOLDER (12/10/2020 8:24 AM CDT) Narrative Jose Brar CRNA - 12/10/2020 8:24 AM CDT Jose Brar CRNA ? 12/10/2020 ??8:25 AM Airway Patient location: OR Date/time: 12/10/2020 7:51 AM Indications for airway management: anesthesia Difficult airway: no Staff: Supervising provider: Ken Bobby MD Placed by: BRAND STRATEGY MANAGER: Jose Brar CRNA Emergent airway documentation: Risks and benefits discussed: yes Consent obtained: yes Consent given by: patient Airway prep: Preoxygenated: yes Patient position: sniffing MILS maintained throughout: yes (c collar left in place for intubation) Mask difficulty assessment: 0 - not attempted Spontaneous ventilation during airway: absent Sedation level during airway: GA Final airway details: Final airway type: endotracheal airway Tube type: ETT ETT size: 8.0 mm Cuffed: yes Technique used for successful ETT placement: video laryngoscopy Devices/Methods used in placement: intubating stylet Insertion site: oral Blade type: Sofía Video blade type: CMAC Blade size: 4 Cormack-Lehane (video): grade IIa - partial view of glottis Cuff inflated with: air ETT to lips: 24 cm Placement verified by: auscultation and CO2 detection Airway secured with: silk tape Number of attempts: 1 us Ken Bobby MD ANESTHESIA ORDERABLES Final Result documented in this encounter Visit Diagnoses Not on filedocumented in this encounter Administered Medications Inactive Administered Medications - up to 3 most recent administrations Medication Order MAR Action Action Date Dose Rate Site ceFAZolin (ANCEF) injection intravenous, Administer over 3 Minutes, As needed, Starting on 12/10/20 at 0805, Anesthesia Intra-op Given 12/10/2020 8:05 AM CDT 2,000 mg dexmedeTOMIDine (PRECEDEX) injection intravenous, As needed, Starting on 12/10/20 at 1038, Anesthesia Intra-op Given 12/10/2020 10:38 AM CDT 8 mcg fentaNYL (SUBLIMAZE) preservative free injection intravenous, As needed, Starting on [place]is 12/10/20 at 0750, Anesthesia Intra-op Given 12/10/2020 10:21 AM CDT 50 mcg Given 12/10/2020 8:59 AM CDT 100 mcg Given 12/10/2020 7:50 AM CDT 100 mcg glycopyrrolate (ROBINUL) injection intravenous, Administer over 1 Minutes, As needed, Starting on 12/10/20 at 1032, Anesthesia Intra-op Given 12/10/2020 10:32 AM CDT 0.4 mg Lactated Ringer's (LR) infusion 30 mL/hr, intravenous, Continuous, Starting on Nevis 12/10/20 at 0800, Pre-Op New Bag 12/10/2020 10:14 AM CDT New Bag 12/10/2020 8:12 AM CDT New Bag 12/10/2020 7:23 AM CDT 30 mL/hr 30 mL/hr lidocaine (cardiac) (XYLOCAINE) preservative free injection intravenous, As needed, Starting on Nevis 12/10/20 at 0750, Anesthesia Intra-op, Indications: Ventricular ArrhythmiasIndications:Ventricular Arrhythmias Given 12/10/2020 7:50 AM CDT 80 mg neostigmine (PROSTIGMIN) injection intravenous, Administer over 3 Minutes, As needed, Starting on Nevis 12/10/20 at 1032, Anesthesia Intra-op Given 12/10/2020 10:32 AM CDT 2 mg ondansetron (ZOFRAN) injection intravenous, Administer over 2 Minutes, As needed, Starting on Nevis 12/10/20 at 1014, Anesthesia Intra-op Given 12/10/2020 10:14 AM CDT 4 mg phenylephrine (MACARENA-SYNEPHRINE) 1 mg/10 mL (100 mcg/mL) in sodium chloride 0.9% (premix) intravenous, As needed, Starting on Nevis 12/10/20 at 0757, Anesthesia Intra-op Given 12/10/2020 9:01 AM CDT 200 mcg Given 12/10/2020 8:10 AM CDT 200 mcg Given 12/10/2020 8:06 AM CDT 200 mcg phenylephrine (MACARENA-SYNEPHRINE) 5 mg/50 mL (100 mcg/mL) in sodium chloride 0.9% (premix) intravenous, Continuous PRN, Starting on 12/10/20 at 0813, Anesthesia Intra-op Rate/Dose Change 12/10/2020 10:35 AM CDT 0.3 mcg/kg/min 13.878 mL/hr Rate/Dose Change 12/10/2020 9:02 AM CDT 0.5 mcg/kg/min 23. 13 mL/hr New Bag 12/10/2020 8:13 AM CDT 0.3 mcg/kg/min 13.878 mL /hr propofoL (DIPRIVAN) IV intravenous, As needed, Starting on 12/10/20 at 0750, Anesthesia Intra-op Given 12/10/2020 7:50 AM CDT 200 mg rocuronium (ZEMURON) injection intravenous, As needed, Starting on Fri12/10/20 at 0750, Anesthesia Intra-op Given 12/10/2020 8:06 AM CDT 35 mg Given 12/10/2020 7:50 AM CDT 15 mg succinylcholine (ANECTINE) injection intravenous, As needed, Starting on Fri12/10/20 at 0750, Anesthesia Intra-op Given 12/10/2020 7:50 AM CDT 100 mg documented in this encounter Care Teams Superintendent Geophysical Laboratory Relationship Specialty Start Date End Date Unknown, Notinfile PCP - General 12/09/20 12/24/20 No, Physician 12/09/20 documented as of this encounter
--- OUTSIDE RECORDS SUMMARY | 2024-09-11 03:24 | XMS_ITS | Encounter Summary ---
Author Organization [facility] Address [address] [place] [address] Phone Care Team Providers Care Engraver Seals Name Role Phone Unknown, Notinfile Primary Care Provider Unavail able No, Physician Unavailable Encounter Details Date Type Department Care Team (Late st Contact Info) Description 12/11/2020 Telephone [facility] Ophthalmology [address] [place] [address] [place] [address] Holly Albarado COA Social History Tobacco Use Types Packs/Day Years Used Date Smoking Tobacco: Every Day Smokeless Tobacco: Never Alcohol Use Standard Drinks/Week Comments Yes 0 (1 standard drink = 0.6 oz pur e alcohol) Sex and Gender Information Value Date Recorded Sex Assigned at Not on file 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 Deluna to schedule a follow up dilated exam in [place] early this week (Fri.). Thanks! * Telephone Encounter - Holly Albarado - 12/11/2020 8:15 AM CDT Called to schedule patient per in basket and only number on file was not working. If patient call in please schedule according to in basket * Telephone Encounter - Holly Albarado - 12/11/2020 8:15 AM CDT ----- Message from Tarah Sheikh MD PhD sent at 12/10/2020 9:39 PM CDT ----- Regarding: Please call to schedule this week in [place] Please call Mr. Deluna to schedule a follow up dilated exam in [place] early this week (, Fri.). Thanks! documented in this encounter Plan of Treatment Not on file documented as of this encounter Visit Diagnoses Not on filedocumented in this encounter Care Teams Engraver Seals Relationship Specialty Start Date End Date Unknown, Notinfile PCP - General 12/09/20 12/24/20 No, Physician 12/09/20 documented as of this encounter
--- OUTSIDE RECORDS SUMMARY | 2024-09-11 03:24 | XMS_ITS | Encounter Summary ---
Author Organization [facility] Healthcare Address [address] [place] [address] Care Team Providers Care Special Services Director Name Role Phone No, Physician Primary Care Provider [phone] Encounter Details Date Type Department Care Team (Late st Contact Info) Description 08/04/2020 5:00 PM WEIGHER AND GRADER Lab [address] [address] Pre-procedure lab exam Social History Tobacco Use Types Packs/Day Years Used Date Smoking Tobacco: Never Smokeless Tobacco: Never Alcohol Use Standard Drinks/Week Comments Yes 8 (1 standard drink = 0.6 oz pur e alcohol) Sex and Gender Information Value Date Recorded Sex Assigned at Not on file 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 ??Negative results should be treated as presumptive and, if inconsistent with clinical signs and symptoms or necessary for patient management, pooled samples should be tested individually. Negative results do not preclude SARS-CoV-2 infection and must not be used as the sole basis for patient management decisions. Negative results must be considered in the context of a patient? s recent exposures, history, presence of clinical signs and symptoms consistent with COVID-19. Interpretive Data Testing performed by the [facility]. The 2019-Novel Coronavirus Assay (COVID-19) Real Time RT-PCR assay is for in vitro diagnostic use under FDA emergency use authorization only. A negative RT-PCR result does not preclude infection with COVID-19 and should not be used as the sole basis for treatment or other patient management decisions. Additional sample types have been validated according to CLIA regulations. ?? Current Interpretive Data was last revised on 2019. First COVID-19 test? No CERNER CH Comment:Testing performed by : [facility], [address] [place] [address], [id number] Employeed in healthcare? No CERNER CH Comment:Testing performed by : [facility], [address] [place] [address], [id number] status? No CERNER CH Comment:Testing performed by : [facility], [address] [place] [address], [phone] Group care resident? No CERNER CH Comment:Testing performed by : [facility], [address] [place] [address], [phone] Hospitalized? No CERNER CH Comment:Testing performed by : [facility], [address] [place] [address], [address] Is patient in ICU? No CERNER CH Comment:Testing performed by : [facility], [address] [place] [address], [id number] Symptomatic as defined by CDC? No CERNER CH Comment:Testing performed by : [facility], [address] [place] [address], [id number] Nasopharyngeal 08/04/2020 2: 17 PM WEIGHER AND GRADER 08/04/2020 11:53 PM WEIGHER AND GRADER [facility] CERNER - 08/06/2020 3:53 AM WEIGHER AND GRADER What is the reason for testing?->Screening prior to scheduled procedure or surgery Donny Prasad MD LAB MICROBIOLOGY - GENERAL ORD ERABLES Final Result ENEDELIA [address] [place] [address] documented in this encounter Visit Diagnoses Diagnosis Pre-procedure lab exam Pre-procedural laboratory examination documented in this encounter Care Teams Special Services Director Relationship Specialty Start Date End Date No, Physician PCP - General 05/30/20 12/08/20 documented as of this encounter
--- OUTSIDE RECORDS SUMMARY | 2024-09-11 03:24 | XMS_ITS | Encounter Summary ---
Author Organization [facility] Address [address] [place] [address] Phone Care Team Providers Care Continuous Churn Buttermaker Name Role Phone Unknown, Notinfile Primary Care Provider Unavail able Unknown, Notinfile Primary Care Provider Unavail able No, Physician Unavailable No, Physician Primary Care Provider Encounter Details Date Type Department Care Team (Late st Contact Info) Description 12/09/2020 Ophth Exam [facility] Ophthalmology [address] [place] [address] 1[address] [place] [id number] Bri Tello MD [address] [place], [place] [id number] Social History Tobacco Use Types Packs/Day Years Used Date Smoking Tobacco: Never Assessed Alcohol Use Standard Drinks/Week Comments Yes 0 (1 standard drink = 0.6 oz pur e alcohol) Sex and Gender Information Value Date Recorded Sex Assigned at Not on file Legal Sex Male 11:16 AM [employer] Gender Identity Not on file Sexual Orientation Not on file documented as of this encounter Plan of Treatment Not on file documented as of this encounter Visit Diagnoses Not on filedocumented in this encounter Eye Exam Visual Acuity Right eye Left eye Near sc at least 20/200 Refuses Tonometry (Tonopen, 11:04 PM) Right eye Left eye Pressure 16 17 Pupils Dark Light Shape React APD Right eye 4 3 Round Brisk None Left eye 5 4 Round Slow None Visual Doyle Refused Extraocular Movement Refused, appears grossly full Neuro/Psych Inebriated, swearing at and trying to hit the examiner Dilation Both eyes: 1.0% Mydriacyl, 2 .5% Phenylephrine @ 09:05 PM External Exam Right eye Left eye External Normal Periorbital ecch ymosis Slit Lamp Exam Right eye Left eye Lids/Lashes Normal Ecchymosis Conjunctiva/Sclera White and quiet, no Subconjunctival hemorrhage Chemosis, no Subconjunctival hemorrhage Cornea Clear, no Epithelial defect Brionna r, no Epithelial defect Anterior Chamber Deep and formed Deep, formed, h boby in AC Iris Round and reactive Round and alber ctive Lens PCIOL Tr NS Anterior Vitreous Normal Hemorrhage Fundus Exam Right eye Left eye Posterior Vitreous Normal Hemorrhage Disc Normal C/D Ratio 0.2 Macula Normal Vessels Normal Periphery Normal B scan OS vit heme, no RT/RD Care Teams Continuous Churn Buttermaker Relationship Specialty Start Date End Date Unknown, Notinfile PCP - General 12/09/20 12/24/20 Unknown, Notinfile PCP - General 12/25/20 02/27/21 No, Physician PCP - General 02/28/21 No, Physician 12/09/20 documented as of this encounter
--- OUTSIDE RECORDS SUMMARY | 2024-09-11 03:24 | XMS_ITS | Encounter Summary ---
Author Organization [facility] Healthcare Address [address] [place] [address] Care Team Providers Care Credit Assistant Name Role Phone No, Physician Primary Care Provider [phone] Encounter Details Date Type Department Care Team (Late st Contact Info) Description 08/07/2020 7:26 AM DETAIL SUPERVISOR Anesthesia Event [facility] Operating Room [address] [place] [address] Stefanie Ramirez MD [address] [place] [address] Palmira Banegas MD [address] [place] [address] Anesthesia Record Procedure Summary Procedure Name Responsible Anesthesiologist Anesthesia Start Time Anesthesia Stop Time EXCISION CYST/LESION/MASS - NECK (Right: Neck) Stefanie Ramirez MD 08/07/20 0726 08/07/20 1041 Events Date Time Event Comment 08/07/2020 0549 In Preop 0709 0726 An Start 0732 In Room 0732 An Start Data 0735 An Induction The patient was reevaluated immediately before moderate or deep sedation use and before anesthesia induction. 0739 An Intubation 0742 Line Placement 0745 Anesthesia Ready 0756 Proc Start 0756 Incision Start 1012 Proc Fin 1020 An Extubation 1024 an stop data 1026 Out of Room 1041 Handoff to RN I completed my handoff [...] disposition at the time of handoff: PACU 1041 An Stop Meds Name Total midazolam PF 2 mg lidocaine 1 % PF 80 mg fentaNYL 150 mcg propofol 100 mg succinylcholine 100 mg phenylephrine 100 mcg/mL 600 mcg HYDROmorphone 2 mg/mL 0.4 mg ondansetron PF (ZOFRAN) 2 mg/mL injectio n 4 mg ampicillin-sulbactam 6,000 mg of ampicil dave dexamethasone 4 mg/ml 10 mg oxymetazoline 0.05 % 2 spray phenylephrine infusion (100 mcg/mL) 1.46 mg Lactated Ringer's (LR) infusion 1,500 mL * Agents Name O2% N2O O2 Air Sevoflurane Inspired Sevoflurane * Blood No blood administrations on file. Lines, Drains, and Airways Type Details Placement Removal Peripheral IV Placement Date: 06/27/20; Placement Time: 1030; Catheter Size: 22 G; Orientation: Right; Location: Antecubital; Site Prep: Chlorhexidine; Technique: Anatomical landmarks; Inserted by: Rosemary Fowler; Insertion Attempts: 1; Patient Tolerance: Tolerated well; Removal Date: 08/07/20; Removal Time: 1045 06/27/20 1030 by Rosemary Fowler, RT 08/07/20 1045 by Rojelio Badillo RN Urethral Catheter Placement Date: 08/07/20; Inserted by: dionna; Existing LDA Placed by: Other (Comment); Type: Non-latex, Temperature probe; Size: 16 Fr.; Balloon Size: 10 mL; Urine Returned: Yes; Removal Date: 08/07/20; Removal Time: 1015; Removal Reason: Disontinued in OR 08/07/20 0000 by Christina Samson RN 08/07/20 1015 by Cornelia William RN Closed/Suction/Open Drain 08/07/20; No; Other (Comment); Right; Neck 08/07/20 0000 by Christina Samson RN 08/08/20 1030 by Amanda Valenzuela RN Peripheral IV Placement Date: 08/07/20; Placement Time: 0630; Catheter Size: 20 G; Orientation: Right; Location: Hand; Site Prep: Chlorhexidine; Technique: Anatomical landmarks; Inserted by: July Lundberg RN; Insertion Attempts: 1; Patient Tolerance: Tolerated well; Removal Date: 08/08/20; Removal Time: 1100 08/07/20 0630 by July Lundberg RN 08/08/20 1100 by Amanda Valenzuela RN ETT Placement Date: 08/07/20; Placement Time: 0808 (created via procedure documentation); Mask Ventilation: 1; Technique: Video laryngoscopy; Type: JOHN tube; Single Lumen Tube Size: 8 mm; Cuffed: Yes; Laryngoscope: Sofía; Blade Size: 4; Location: Right nare; Insertion Attempts: 1; Placement Verification: Auscultation, Capnometry; Removal Date: 08/07/20; Removal Time: 1020 08/07/20 0808 by Palmira Banegas MD 08/07/20 1020 by Palmira Banegas MD Peripheral IV Placement Date: 08/07/20; Placement Time: 0808 (created via procedure documentation); Catheter Size: 18 G; Orientation: Left; Location: Hand; Site Prep: Alcohol; Insertion Attempts: 1; Removal Date: 08/08/20; Removal Time: 1059 08/07/20 0808 by Palmira Banegas MD 08/08/20 1059 by Amanda Valenzuela RN RETIRED Surgical Site 08/07/20; 0958; Ri ght; Neck; 08/08/20; 1101 08/07/20 0958 by Christina Samson RN 08/08/20 1101 by Amanda Valenzuela RN documented in this encounter Social History Tobacco Use Types Packs/Day Years Used Date Smoking Tobacco: Never Smokeless Tobacco: Never Alcohol Use Standard Drinks/Week Comments Yes 18 (1 standard drink = 0.6 oz pu re alcohol) Sex and Gender Information Value Date Recorded Sex Assigned at Not on file Legal Sex Male 11:16 AM DETAIL SUPERVISOR Gender Identity Not on file Sexual Orientation Not on file documented as of this encounter OR Notes * Anesthesia Postprocedure Evaluation - Peng Last MD - 08/07/2020 11:19 AM CST Patient: Marco A Deluna Procedure Summary Date: 08/07/20 Room / Location: [facility] OR POD 5 ROOM 218 / [facility] OR POD 5 Anesthesia Start: 725 Anesthesia Stop: 1040 Procedures: TONSILLECTOMY WITH LASER CO2 OMNIGUDE (H.A) (Right Throat) EXCISION CYST/LESION/MASS - NECK (Right Neck) DISSECTION RADICAL NECK (Right Neck) Diagnosis: Mass in neck (Mass in neck [R22.1]) Surgeons: Donny Prasad MD Responsible Provider: Stefanie Ramirez MD Anesthesia Type: general ASA Status: 2 Anesthesia Type: general Last vitals BP 109/81 Pulse 87 Temp 36 ??C (96.8 ??F) Resp 23 SpO2 94% Anesthesia Post Evaluation Patient location during evaluation: PACU Patient participation: complete - patient participated Level of consciousness: follows simple commands and arouses disaster response director Pain score: 6 Pain management: satisfactory to patient Airway patency: adequate Evidence of recall: no Anesthetic complications: no Cardiovascular status: hemodynamically stable Respiratory status: nasal cannula Hydration status: acceptable Pt is: normothermic Nausea/Vomiting status: none Comments: Suspected CONCEPCIÓN but no apnea issues in PACU. Pain moderate but acceptable to patient. Will supplement analgesia with po oxycodone and acetaminophen and will DC to the floor IL SUPERVISOR * Anesthesia Procedure Notes - Palmira Banegas MD - 08/07/2020 8:08 AM CSTAssociated Order(s): Peripheral IV Catheter Peripheral IV Catheter Patient location: OR Staff: Supervising provider: Stefanie Ramirez MD Placed by: Resident: Palmira Banegas MD Preprocedure prep: Prep solution: alcohol PPE: gloves PIV line: Laterality: left Site: hand Catheter size: 18 g Technique: anatomical landmarks and direct visualization Procedure details: good blood return and occlusive dressing applied Number of attempts: 1 Assessment: Events: patient tolerated procedure well with no complications IL SUPERVISOR * Anesthesia Procedure Notes - Palmira Banegas MD - 08/07/2020 8:07 AM CSTAssociated Order(s): Airway Airway Patient location: OR Urgency: elective Indications for airway management: anesthesia Difficult airway: no Staff: Supervising provider: Stefanie Ramirez MD Placed by: Resident: Palmira Banegas MD Emergent airway documentation: Risks and benefits discussed: yes Consent obtained: yes Consent given by: patient Airway prep: Preoxygenated: yes Patient position: sniffing MILS maintained throughout: yes Mask difficulty assessment: 1 - vent by mask Spontaneous ventilation during airway: absent Sedation level during airway: GA Final airway details: Final airway type: endotracheal airway Tube type: JOHN tube ETT size: 8.0 mm Cuffed: yes Technique used for successful ETT placement: video laryngoscopy Insertion site: right nare Blade type: Sofía Video blade type: CMAC Blade size: 4 Cormack-Lehane (video): grade I - full view of glottis Cuff inflated with: air Placement verified by: auscultation and CO2 detection Airway secured with: silk tape and other Number of attempts: 1 IL SUPERVISOR * Anesthesia Preprocedure Evaluation - Stefanie Ramirez MD - 07/31/2020 8:45 AM CST Images from the original note were not included. [facility] Preoperative Assessment and Planning Preoperative Evaluation Record Evaluation type/location: [facility] Planned procedure site: 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 male Procedure(s): EXCISION CYST/LESION/MASS - NECK TONSILLECTOMY WITH LASER CO2 DISSECTION RADICAL NECK GLOSSECTOMY - PARTIAL Pre-Op Diagnosis Codes: * Mass in neck [R22.1] HISTORY HPI Marco A Deluna is a 50 y.o. male with no significant PMH who presents for evaluation prior to R neck mass excision, possible radical dissection for possible squamous cell carcinoma on 08/07/20 Past Medical History Information obtained from: patient and chart. Neurological Pertinent negatives: seizures; neuromuscular disease; CVA/stroke; TIA; CEA; ICA stenosis; dementia/mild cognitive impairment and carotid artery stent Cardiovascular Pertinent negatives: hypertension ; CAD ; IA ; CABG ; valvular heart disease; valve replacement; atrial fibrillation; arrhythmia; pacemaker/ICD; PVD; DVT/PE; negative for CHF; drug-eluting stent(s); bare metal stent(s) and coronary angioplasty Respiratory + Current smoker (intermittent marijuana use currently, previous tobacco use) - Counseled to abstain from smoking the day of surgery. Pertinent negatives: COPD; asthma; sleep apnea (CONCEPCIÓN); pulmonary hypertension and no O2 use outside the hospital Hepatic / Heme Pertinent negatives: liver disease; history of anemia; history of thrombocytopenia and history of Van positive Gastrointestinal Pertinent negatives: GERD and hiatal hernia Renal / Renal/ system: negative Musculoskeletal/Pain Pertinent negatives: chronic pain; chronic opioid use and previous treatment for opioid use disorder Endocrine / Other + Cancer history (current c/f squamous cell carcinoma of neck)- current cancer. Pertinent negatives: diabetes mellitus; thyroid disease; obesity (BMI >30); rheumatological disease and transplanted organ Functional Capacity Functional capacity: 6-10 METs Review of Systems + dysphagia (mild, no limitations in PO intake) + chipped/loose teeth Pertinent negatives: productive cough; wheezing; SOB; recent cold/flu; fever; chest pain; palpitations; orthopnea; pedal edema; PND; Sickle Cell disease/trait; previous transfusion; transfusion reaction; melena/hematochezia; easy bruising; bleeding problems; syncope; dizziness; muscle weakness; chronic pain; numbness/tingling; hard of hearing; vision loss; heartburn; nausea; diarrhea; dentures/partials; abdominal pain; diaphoresis and no unexpected weight change PAT Summary and Plans Cardiac risk classification of planned procedure: intermediate cardiac risk. Preoperative assessment status: lab tests ordered. Initial preoperative evaluation discussed with: Carl Peters MD Additional comments: Marco A Deluna is a 50 y.o. male who is being evaluated prior to undergoing anintermediate cardiac risk surgery. Revised Cardiac Risk Index factors are (none) for a total RCRI of 0 out of 6. Functional capacity is 6-10 METs. Obstructive sleep apnea (CONCEPCIÓN) screening status is STOP-Bang=2 suggesting low risk for CONCEPCIÓN. Blood bank needs for day of procedure: Type and Screen only Pending labs/tests include: CBC BMP T&S Patient with No known exposure to COVID19 and no concerning symptoms of COVID19. Plan for pre-procedure COVID19 testing: Surgeon's office arranged for pre- procedure COVID19 testing to be performed on08/04 at [facility]. . Preoperative evaluation performed by Fidel Coyle MD on 07/31/20 at 9:32 AM. . Follow up note Labs reviewed, unremarkable. CPAP process complete Follow-up completed by: Fidel Coyle MD on 08/01/20 at 8:26 AM Patient Active Problem List Diagnosis ??? Mass of right side of neck ??? Mass in neck Past Medical History: Diagnosis Date ??? Peptic ulcer Past Surgical History: Procedure Laterality Date ??? FEMUR SURGERY No Known Allergies Med List Status: Nurse Complete Set By: July Knox RN at 07/31/2020 9:15 AM Taking? Last Dose Start Date End Date Provider acetaminophen (TYLENOL) 325 mg tablet -- -- Amanda Spivey MD [id number] (EXCEDRIN MIGRAINE) 250-250-65 mg per tablet -- -- Amanda Spivey MD Current Outpatient Medications: ??? acetaminophen (TYLENOL) 325 mg tablet ??? [id number] (EXCEDRIN MIGRAINE) 250-250-65 mg per tablet Social History Tobacco Use Smoking Status Never Smoker Smokeless Tobacco Never Used Substance and Sexual Activity Alcohol Use Yes ??? Alcohol/week: 8.0 standard drinks ??? Types: 8 Cans of beer per week Substance and Sexual Activity Drug Use Yes ??? Frequency: 2.0 times per week ??? Types: Marijuana Comment: last week 07/26/2020 smoked History reviewed. No pertinent family history. PAT Physical Exam Airway Exam: Mallampati: III Cervical ROM: FROM TM distance: >4 Jaw ROM: full Cardiovascular Exam: Rate: regular Rhythm: regular Negative for Murmur No extra heart sounds appreciated Pulmonary Exam: LCTA, bilat EENT Exam: trachea midline Dental Exam: Missing and poor dentition (Missing upper right, upper left) Skin Exam: Skin is warm. Capillary refill is < 3 seconds. Abdominal exam: Abdomen is soft. Bowel sounds are present. Current state: Patient's current state is cooperative. Vitals: 07/31/20 0915 07/31/20 0918 BP: 113/79 102/68 Pulse: 85 SpO2: 99% PT: No results found for requested labs within last 720 hours. INR: No results found for requested labs within last 720 hours. APTT: No results found for requested labs within last 720 hours. Hgb A1C: No results found for requested labs within last 720 hours. CBC RBC: No results found for requested labs within last 720 hours. RDW: No results found for requested labs within last 720 hours. MCHC: No results found for requested labs within last 720 hours. MCH: No results found for requested labs within last 720 hours. MCV: No results found for requested labs within last 720 hours. Hct: No results found for requested labs within last 720 hours. Hgb: No results found for requested labs within last 720 hours. WBC: No results found for requested labs within last 720 hours. MPV: No results found for requested labs within last 720 hours. Platelets: No results found for requested labs within last 720 hours. RDW CV: No results found for requested labs within last 720 hours. RDW Sd: No results found for requested labs within last 720 hours. BMP Glucose: No results found for requested labs within last 720 hours. Calcium: No results found for requested labs within last 720 hours. Sodium: No results found for requested labs within last 720 hours. Potassium: No results found for requested labs within last 720 hours. CO2: No results found for requested labs within last 720 hours. Chloride: No results found for requested labs within last 720 hours. BUN: No results found for requested labs within last 720 hours. Creatinine: No results found for requested labs within last 720 hours. STOP-Bang Total Score: 2 Alfreda index score: 100 DOS Physical Exam Medical history, medications, and allergies reviewed. Attestation: With today's edits, I endorse the findings of the anesthesia pre-evaluation assessment dated: 07/31/2020. Airway Exam: Mallampati: II Cervical ROM: FROM TM distance: 3.5 Cardiovascular Exam: Rate: regular Rhythm: regular Pulmonary Exam: LCTA, bilat EENT Exam: trachea midline Dental Exam: Appears intact Current state: Patient's current state is cooperative and interactive. Anesthesia Plan ASA 2 My patient is approved for the Anesthesia Controlled Medication protocol when under care of a PICTURES EDITOR Planned anesthesia: General Team communication plan: nasal ET tube Induction: Induction: intravenous. Postoperative Plan: Postoperative administration opioids intended. No postoperative mechanical ventilation intended. Informed Consent: Discussed plan with resident. Anesthesia plan and risks discussed with patient. Plan and Consent Comments: Explained the risks including but not limited to sore throat, nasal discomfort, PONV, damage to thelips & teeth and chest infection. Patient fully understands the risks. I answered further questions asked by the patient. Patient is happy with the explanation and happy to proceed. Consent and Attending signature: I and/or my designee have discussed the anesthesia plan, benefits, possible alternatives, parental presence at time of induction (if indicated), and clinically relevant risks that may include dental injury, unintentional awareness, and/or other complications. The patient and/or parent/legal guardian understand, and agree to proceed. All questions answered. IL SUPERVISOR IL SUPERVISOR IL SUPERVISOR documented in this encounter Plan of Treatment Not on file documented as of this encounter Procedures Procedure Name Priority Date/Time Associated Diagnosis Comments PERIPHERAL LINE Routine 08/07/2020 8:08 AM DETAIL SUPERVISOR ANESTHESIA INTUBATION Routine 08/07/2020 8:07 AM DETAIL SUPERVISOR documented in this encounter Results * Peripheral IV Catheter (08/07/2020 8:08 AM DETAIL SUPERVISOR) Narrative Palmira Banegas MD - 08/07/2020 8:08 AM DETAIL SUPERVISOR Palmira Banegas MD ? 08/07/2020 ??8:08 AM Peripheral IV Catheter Patient location: OR Staff: Supervising provider: Stefanie Ramirez MD Placed by: Resident: Palmira Banegas MD Preprocedure prep: Prep solution: alcohol PPE: gloves PIV line: Laterality: left Site: hand Catheter size: 18 g Technique: anatomical landmarks and direct visualization Procedure details: good blood return and occlusive dressing applied Number of attempts: 1 Assessment: Events: patient tolerated procedure well with no complications Stefanie Ramirez MD ANESTHESIA ORDERABLES Griselda l Result * Airway (08/07/2020 8:07 AM DETAIL SUPERVISOR) Narrative Palmira Banegas MD - 08/07/2020 8:07 AM DETAIL SUPERVISOR Palmira Banegas MD ? 08/07/2020 ??8:08 AM Airway Patient location: OR Urgency: elective Indications for airway management: anesthesia Difficult airway: no Staff: Supervising provider: Stefanie Ramirez MD Placed by: Resident: Palmira Banegas MD Emergent airway documentation: Risks and benefits discussed: yes Consent obtained: yes Consent given by: patient Airway prep: Preoxygenated: yes Patient position: sniffing MILS maintained throughout: yes Mask difficulty assessment: 1 - vent by mask Spontaneous ventilation during airway: absent Sedation level during airway: GA Final airway details: Final airway type: endotracheal airway Tube type: JOHN tube ETT size: 8.0 mm Cuffed: yes Technique used for successful ETT placement: video laryngoscopy Insertion site: right nare Blade type: Sofía Video blade type: CMAC Blade size: 4 Cormack-Lehane (video): grade I - full view of glottis Cuff inflated with: air Placement verified by: auscultation and CO2 detection Airway secured with: silk tape and other Number of attempts: 1 Stefanie Ramirez MD ANESTHESIA ORDERABLES Griselda l Result documented in this encounter Visit Diagnoses Not on filedocumented in this encounter Administered Medications Inactive Administered Medications - up to 3 most recent administrations Medication Order MAR Action Action Date Dose Rate Site ampicillin-sulbactam (UNASYN) injection As needed, Starting on Fri08/07/20 at 0743, Anesthesia Intra-op Given 08/07/2020 9:41 AM DETAIL SUPERVISOR 3,000 mg of ampicillin Given 08/07/2020 7:43 AM DETAIL SUPERVISOR 3,000 mg of ampicillin dexAMETHasone (DECADRON) 4 mg/mL injection Administer over 2 Minutes, As needed, Starting on Fri08/07/20 at 0745, Anesthesia Intra-op Given 08/07/2020 7:45 AM DETAIL SUPERVISOR 10 mg fentaNYL (SUBLIMAZE) preservative free injection intravenous, As needed, Starting on Fri08/07/20 at 0745, Anesthesia Intra-op Given 08/07/2020 7:45 AM DETAIL SUPERVISOR 150 mcg HYDROmorphone (DILAUDID) injection intravenous, Administer over 2 Minutes, As needed, Starting on Fri08/07/20 at 0934, Anesthesia Intra-op Given 08/07/2020 10:04 AM DETAIL SUPERVISOR 0.2 mg Given 08/07/2020 9:34 AM DETAIL SUPERVISOR 0.2 mg Lactated Ringer's (LR) infusion 30 mL/hr, intravenous, Continuous, Starting on Fri08/07/20 at 0645, Pre-Op New Bag 08/07/2020 7:42 AM DETAIL SUPERVISOR New Bag 08/07/2020 7:32 AM DETAIL SUPERVISOR lidocaine PF (XYLOCAINE) 10 mg/mL (1 %) preservative free injection As needed, Starting on Fri08/07/20 at 0745, Anesthesia Intra-op Given 08/07/2020 7:45 AM DETAIL SUPERVISOR 80 mg midazolam (VERSED) 1 mg/mL preservative free injection intravenous, Administer over 2 Minutes, As needed, Starting on Fri08/07/20 at 0726, Anesthesia Intra-op Given 08/07/2020 7:26 AM DETAIL SUPERVISOR 2 mg ondansetron (ZOFRAN) injection intravenous, Administer over 2 Minutes, As needed, Starting on Fri08/07/20 at 0948, Anesthesia Intra-op Given 08/07/2020 9:48 AM DETAIL SUPERVISOR 4 mg oxymetazoline (AFRIN) 0.05 % nasal spray each nostril, As needed, Starting on Fri08/07/20 at 0726, Anesthesia Intra-op Given 08/07/2020 7:26 AM DETAIL SUPERVISOR 2 spray s phenylephrine (MACARENA-SYNEPHRINE) 0.5 mg/5 mL (100 mcg/mL) in sodium chloride 0.9% (premix) intravenous, As needed, Starting on Fri08/07/20 at 0803, Anesthesia Intra-op Given 08/07/2020 8:52 AM DETAIL SUPERVISOR 100 mcg Given 08/07/2020 8:36 AM DETAIL SUPERVISOR 100 mcg Given 08/07/2020 8:31 AM DETAIL SUPERVISOR 100 mcg phenylephrine (MACARENA-SYNEPHRINE) 5 mg/50 mL (100 mcg/mL) in sodium chloride 0.9% (premix) Continuous PRN, Starting on Fri08/07/20 at 0855, Anesthesia Intra-op Rate/Dose Change 08/07/2020 9:06 AM DETAIL SUPERVISOR 0.3 mcg/kg/min 15.52 mL/hr Rate/Dose Change 08/07/2020 9:02 AM DETAIL SUPERVISOR 0.1 mcg/kg/min 5.1 7 mL/hr New Bag 08/07/2020 8:55 AM DETAIL SUPERVISOR 0.3 mcg/kg/min 15.52 mL/ hr propofoL (DIPRIVAN) IV intravenous, As needed, Starting on Fri08/07/20 at 0745, Anesthesia Intra-op Given 08/07/2020 7:45 AM DETAIL SUPERVISOR 100 mg succinylcholine (ANECTINE) injection intravenous, As needed, Starting on Fri08/07/20 at 0745, Anesthesia Intra-op Given 08/07/2020 7:45 AM DETAIL SUPERVISOR 100 mg documented in this encounter Care Teams Credit Assistant Relationship Specialty Start Date End Date No, Physician PCP - General 05/30/20 12/08/20 documented as of this encounter
--- OUTSIDE RECORDS SUMMARY | 2024-09-11 03:24 | XMS_ITS | Encounter Summary ---
Author Organization [facility] Healthcare Address [address] [place] [address] Care Team Providers Care Airplane Pilot Helper Name Role Phone No, Physician Primary Care Provider [phone] Encounter Details Date Type Department Care Team (Late st Contact Info) Description 08/16/2020 Telephone [facility] Advanced Medicine Radiation Oncology [address] 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 Patient scheduled to see on 08/21 at 945am. Patient had no prior RT, records in [facility]. OR SOFTWARE PROJECT MANAGER documented in this encounter Plan of Treatment Not on file documented as of this encounter Visit Diagnoses Not on filedocumented in this encounter Care Teams Airplane Pilot Helper Relationship Specialty Start Date End Date No, Physician PCP - General 05/30/20 12/08/20 documented as of this encounter
--- OUTSIDE RECORDS SUMMARY | 2024-09-11 03:24 | XMS_ITS | Encounter Summary ---
Author Organization [facility] Address [address] [place] [address] Care Team Providers Care Consulting Psychologist Name Role Phone No, Physician Primary Care Provider [phone] Encounter Details Date Type Department Care Team (Late st Contact Info) Description 07/31/2020 Orders Only [facility] Testing Site - [address] [id number] Donny Prasad MD [address] [place], [place] [id number] Pre-procedure lab exam (Primary Dx) Social History Tobacco Use Types Packs/Day Years Used Date Smoking Tobacco: Never Smokeless Tobacco: Never Alcohol Use Standard Drinks/Week Comments Yes 8 (1 standard drink = 0.6 oz pur e alcohol) Sex and Gender Information Value Date Recorded Sex Assigned at Not on file 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 Date of Px/chemo/treatment/placement/transfer 08/07/2020 ?? Testing site patient will be sent to: [facility] ?? Date testing requested: 08/04/2020 ?? Testing: COVID-RNA ?? Is this the first COVID-19 test for this patient? No ?? Does the patient currently work in a healthcare facility with direct patient contact? No ?? Is the patient a resident of a congregate care or living setting? No ?? Is the patient ? No ?? Please select the performing region: [facility] AL SAFETY OFFICER documented in this encounter Plan of Treatment Not on file documented as of this encounter Results * COVID-19 Coronavirus RNA Nasopharyngeal (08/04/2020 2:17 PM GLOBAL SAFETY OFFICER) COVID-19 RNA Not Detected [facility] Comment: Testing performed as a component of [...] COVID-19. Interpretive Data Testing performed by the [facility]. The 2019-Novel Coronavirus [...] No [facility] Comment:Testing performed by : [facility] [place]., [address] Employeed in healthcare? No [facility] Comment:Testing performed by : [facility], [address] [place]., [address] status? No [facility] Comment:Testing performed by : [facility], [address] [place]., [address] Group care resident? No [facility] Comment:Testing performed by : [facility], [address] [place]., [address] Hospitalized? No [facility] Comment:Testing performed by : [facility], [address] [place]., [address] Is patient in ICU? No ENEDELIA Comment:Testing performed by : [facility], [address] [place]., [address] Symptomatic as defined by CDC? No ENEDELIA Comment:Testing performed by : [facility], [address] [place]., [address] Nasopharyngeal 08/04/2020 2: 17 PM GLOBAL SAFETY OFFICER 08/04/2020 11:53 PM GLOBAL SAFETY OFFICER Narrative ENEDELIA COLE - 08/06/2020 3:53 AM GLOBAL SAFETY OFFICER What is the reason for testing?->Screening prior to scheduled procedure or surgery us Donny Prasad MD LAB MICROBIOLOGY - GENERAL ORD ERABLES Final Result ENEDELIA [address] Department [place] [address] documented in this encounter Visit Diagnoses Diagnosis Pre-procedure lab exam- Primary Pre-procedural laboratory examination Pre-procedure lab exam Pre-procedural laboratory examination documented in this encounter Care Teams Consulting Psychologist Relationship Specialty Start Date End Date No, Physician PCP - General 05/30/20 12/08/20 documented as of this encounter
--- OUTSIDE RECORDS SUMMARY | 2024-09-11 03:24 | XMS_ITS | Encounter Summary ---
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 [facility] NRBC abs 0.00 0.00 - 0.01 K/cumm [facility] Blood specimen (specimen) 12/19/2020 10:12 PM CDT 12/19/2020 10:57 PM CDT us Corine Hodgson MD LAB BLOOD ORDERABLES Griselda l Result [facility] Department [place] [address] * Phosphorus (12/19/2020 10:12 PM CDT) Phosphorus, pl 4.4 2.3 - 4.5 mg/dL [facility] Blood specimen (specimen) 12/19/2020 10:12 PM CDT 12/19/2020 10:56 PM CDT Corine Hodgson MD LAB BLOOD ORDERABLES Griselda l Result Performing Organization Address City/[facility] Co de Phone Number [facility] Department [place] [address] * Magnesium (12/19/2020 10:12 PM CDT) [facility] Magnesium 2.0 1.4 - 2.5 mg/dL [facility] Blood specimen (specimen) 12/19/2020 10:12 PM CDT 12/19/2020 10:56 PM CDT Corine Hodgson MD LAB BLOOD ORDERABLES Griselda l Result Performing Organization Address [facility] de Phone Number [facility] [place] [address] * (ABNORMAL) Basic metabolic panel (12/19/2020 10:12 PM CDT) [facility] Sodium 133(L) 135 - 145 mmol/L [facility] Potassium, pl 4.6 3.3 - 4.9 mmol/L [facility] Chloride 101 97 - 110 mmol/L [facility] CO2 27 22 - 32 mmol/L [facility] Anion gap 5 2 - 15 mmol/L [facility] BUN 16 8 - 25 mg/dL [facility] Creatinine 0.82 0.80 - 1.30 mg/dL [facility] Glucose 107 70 - 199 mg/dL [facility] Comment: Interpretive Data Fasting glucose >/= [...] Calcium 8.5 8.5 - 10.3 mg/dL [facility] Blood specimen (specimen) 12/19/2020 10:12 PM CDT 12/19/2020 10:56 PM CDT us Corine Hodgson MD LAB BLOOD ORDERABLES Griselda mitchell Result [facility] Department [place] [address] * XR Ankle Right 2 Views (12/19/2020 [...] / OR operative note. No Thomas MD [facility] FLUOROSCOPY PROCEDURES F inal Result [id number] * (ABNORMAL) Differential, auto (12/18/2020 11:12 PM CDT) Neutrophil abs 8.5(H) 1.7 - 6.5 K/cumm [facility] gran abs 0.3(H) 0.0 - 0.1 K/cumm [facility] Lymphocyte abs 2.3 0.8 - 3.3 K/cumm [facility] Monocyte abs 1.1(H) 0.2 - 0.8 K/cumm [facility] Eosinophil abs 0.2 0.0 - 0.5 K/cumm [facility] Basophil abs 0.1 0.0 - 0.1 K/cumm [facility] Neutrophil pct 68.4 % [facility] Comment: Interpretive Data Percent cell count reference ranges are not reported, since discordance with absolute values may lead to misinterpretation of CBC data. Current Interpretive Data was last revised on 2017. Imm gran pct 2.7 % [facility] Comment: Interpretive Data Percent cell count reference ranges are not reported, since discordance with absolute values may lead to misinterpretation of CBC data. Current Interpretive Data was last revised on 2017. Lymphocyte pct 18.3 % [facility] Comment: Interpretive Data Percent cell count reference ranges are not reported, since discordance with absolute values may lead to misinterpretation of CBC data. Current Interpretive Data was last revised on 2017. Monocyte pct 8.8 % [facility] Comment: Interpretive Data Percent cell count reference ranges are not reported, since discordance with absolute values may lead to misinterpretation of CBC data. Current Interpretive Data was last revised on 2017. Eosinophil pct 1.2 % [facility] Comment: Interpretive Data Percent cell count reference ranges are not reported, since discordance with absolute values may lead to misinterpretation of CBC data. Current Interpretive Data was last revised on 2017. Basophil pct 0.6 % [facility] Comment: Interpretive Data Percent cell count reference ranges are not reported, since discordance with absolute values may lead to misinterpretation of CBC data. Current Interpretive Data was last revised on 2017. Blood specimen (specimen) 12/18/2020 11:12 PM CDT 12/19/2020 12:25 AM CDT us Caty Zuñiga [employer]USTODIAL ENGINEER LAB BLOOD ORDERABLES Final R esult [facility] Department of Laboratories [place], [place] [id number] * (ABNORMAL) CBC with auto differential (12/18/2020 11:12 PM CDT) WBC 12.5(H) 3.8 - 9.9 K/cumm [facility] Hgb 9.3(L) 13.0 - 17.5 g/dL [facility] Hct 28.3(L) 38.9 - 50.3 % [facility] Plt 629(H) 150 - 400 K/cumm [facility] MPV 9.1 9.1 - 12.3 fL [facility] RBC 2.91(L) 4.30 - 5.80 M/cumm [facility] MCV 97.3(H) 81.3 - 96.4 fL [facility] MCH 32.0 27.1 - 33.3 pg [facility] MCHC 32.9 32.3 - 35.7 g/dL [facility] RDW CV 14.3 11.1 - 14.9 % [facility] RDW SD 49.7(H) 35.7 - 48.1 fL [facility] NRBC abs 0.00 0.00 - 0.01 K/cumm [facility] Blood specimen (specimen) 12/18/2020 11:12 PM CDT 12/19/2020 12:25 AM CDT Corine Hodgson MD LAB BLOOD ORDERABLES Griselda l Result [facility] Department [place] [address] * Phosphorus (12/18/2020 11:12 PM CDT) Phosphorus, pl 4.2 2.3 - 4.5 mg/dL [facility] Blood specimen (specimen) 12/18/2020 11:12 PM CDT 12/19/2020 12:25 AM CDT Corine Hodgson MD LAB BLOOD ORDERABLES Griselda l Result [facility] Department [place] [address] * Magnesium (12/18/2020 11:12 PM CDT) Magnesium 2.1 1.4 - 2.5 mg/dL [facility] Blood specimen (specimen) 12/18/2020 11:12 PM CDT 12/19/2020 12:25 AM CDT Corine Hodgson MD LAB BLOOD ORDERABLES Griselda l Result [facility] Department [place] [address] * (ABNORMAL) Basic metabolic panel (12/18/2020 11:12 PM CDT) Pathologist [facility] Sodium 134(L) 135 - 145 mmol/L [facility] Potassium, pl 4.3 3.3 - 4.9 mmol/L [facility] Chloride 102 97 - 110 mmol/L [facility] CO2 27 22 - 32 mmol/L [facility] Anion gap 5 2 - 15 mmol/L [facility] BUN 18 8 - 25 mg/dL [facility] Creatinine 0.88 0.80 - 1.30 mg/dL [facility] Glucose 132 70 - 199 mg/dL [facility] Comment: Interpretive Data Fasting glucose >/= [...] Calcium 8.7 8.5 - 10.3 mg/dL [facility] Blood specimen (specimen) 12/18/2020 11:12 PM CDT 12/19/2020 12:25 AM CDT Corine Hodgson MD LAB BLOOD ORDERABLES Griselda l Result Performing Organization Address [facility]/ZIP Co de Phone Number [facility] Department [place] [address] * (ABNORMAL) Differential, auto (12/18/2020 12:04 AM CDT) Neutrophil abs 7.3(H) 1.7 - 6.5 K/cumm [facility] Imm gran abs 0.4(H) 0.0 - 0.1 K/cumm [facility] Lymphocyte abs 2.4 0.8 - 3.3 K/cumm [facility] Monocyte abs 0.9(H) 0.2 - 0.8 K/cumm [facility] Eosinophil abs 0.2 0.0 - 0.5 K/cumm [facility] Basophil abs 0.1 0.0 - 0.1 K/cumm [facility] Neutrophil pct 64.4 % [facility] Comment: Interpretive Data Percent cell count reference ranges are not reported, since discordance with absolute values may lead to misinterpretation of CBC data. Current Interpretive Data was last revised on 2017. Imm gran pct 3.8 % [facility] Comment: Interpretive Data Percent cell count reference ranges are not reported, since discordance with absolute values may lead to misinterpretation of CBC data. Current Interpretive Data was last revised on 2017. Lymphocyte pct 20.8 % [facility] Comment: Interpretive Data Percent cell count reference ranges are not reported, since discordance with absolute values may lead to misinterpretation of CBC data. Current Interpretive Data was last revised on 2017. Monocyte pct 8.1 % [facility] Comment: Interpretive Data Percent cell count reference ranges are not reported, since discordance with absolute values may lead to misinterpretation of CBC data. Current Interpretive Data was last revised on 2017. Eosinophil pct 2.0 % [facility] Comment: Interpretive Data Percent cell count reference ranges are not reported, since discordance with absolute values may lead to misinterpretation of CBC data. Current Interpretive Data was last revised on 2017. Basophil pct 0.9 % [facility] Comment: Interpretive Data Percent cell count reference ranges are not reported, since discordance with absolute values may lead to misinterpretation of CBC data. Current Interpretive Data was last revised on 2017. Blood specimen (specimen) 12/18/2020 12:04 AM CDT 12/18/2020 1:42 AM CDT Corine Hodgson MD LAB BLOOD ORDERABLES Griselda mitchell Result [facility] Department [place] [address] * (ABNORMAL) CBC with auto differential (12/18/2020 12:04 AM CDT) Pathologist [facility] WBC 11.3(H) 3.8 - 9.9 K/cumm [facility] Hgb 9.2(L) 13.0 - 17.5 g/dL [facility] Hct 27.9(L) 38.9 - 50.3 % [facility] Plt 572(H) 150 - 400 K/cumm [facility] MPV 9.2 9.1 - 12.3 fL [facility] RBC 2.89(L) 4.30 - 5.80 M/cumm [facility] MCV 96.5(H) 81.3 - 96.4 fL [facility] MCH 31.8 27.1 - 33.3 pg [facility] MCHC 33.0 32.3 - 35.7 g/dL [facility] RDW CV 14.0 11.1 - 14.9 % [facility] RDW SD 49.0(H) 35.7 - 48.1 fL [facility] NRBC abs 0.00 0.00 - 0.01 K/cumm [facility] Blood specimen (specimen) 12/18/2020 12:04 AM CDT 12/18/2020 1:42 AM CDT Corine Hodgson MD LAB BLOOD ORDERABLES Griselda mitchell Result [facility] Department [place] [address] * Phosphorus (12/18/2020 12:04 AM CDT) Pathologist [facility] Phosphorus, pl 3.8 2.3 - 4.5 mg/dL [facility] Blood specimen (specimen) 12/18/2020 12:04 AM CDT 12/18/2020 1:42 AM CDT Corine Hodgosn MD LAB BLOOD ORDERABLES Griselda l Result Performing Organization Address City/[facility] Co de Phone Number [facility] Department [place] [address] * Magnesium (12/18/2020 12:04 AM CDT) [facility] Magnesium 2.1 1.4 - 2.5 mg/dL [facility] Blood specimen (specimen) 12/18/2020 12:04 AM CDT 12/18/2020 1:42 AM CDT Corine Hodgson MD LAB BLOOD ORDERABLES Griselda l Result Performing Organization Address [facility] de Phone Number [facility] [place] [address] * (ABNORMAL) Basic metabolic panel (12/18/2020 12:04 AM CDT) [facility] Sodium 132(L) 135 - 145 mmol/L [facility] Potassium, pl 4.2 3.3 - 4.9 mmol/L [facility] Chloride 99 97 - 110 mmol/L [facility] CO2 26 22 - 32 mmol/L [facility] Anion gap 7 2 - 15 mmol/L [facility] BUN 15 8 - 25 mg/dL [facility] Creatinine 0.73(L) 0.80 - 1.30 mg/dL [facility] Glucose 113 70 - 199 mg/dL [facility] Comment: Interpretive Data Fasting glucose >/= [...] Calcium 8.5 8.5 - 10.3 mg/dL [facility] Blood specimen (specimen) 12/18/2020 12:04 AM CDT 12/18/2020 1:42 AM CDT Corine Hodgson MD LAB BLOOD ORDERABLES Griselda l Result Performing Organization Address City/[facility]/ZIP Co de Phone Number [facility] [place] [address] * Phosphorus (12/16/2020 10:28 PM CDT) Phosphorus, pl 3.1 2.3 - 4.5 mg/dL [facility] Blood specimen (specimen) 12/16/2020 10:28 PM CDT 12/16/2020 11:27 PM CDT Corine Hodgson MD LAB BLOOD ORDERABLES Griselda l Result Performing Organization Address City/[facility]/ZIP Co de Phone Number [facility] Department [place] [address] * Magnesium (12/16/2020 10:28 PM CDT) Magnesium 2.0 1.4 - 2.5 mg/dL [facility] Blood specimen (specimen) 12/16/2020 10:28 PM CDT 12/16/2020 11:27 PM CDT Corine Hodgson MD LAB BLOOD ORDERABLES Griselda l Result [facility] [place] [address] * (ABNORMAL) Basic metabolic panel (12/16/2020 10:28 PM CDT) Pathologist [facility] Sodium 135 135 - 145 mmol/L [facility] Potassium, pl 4.2 3.3 - 4.9 mmol/L [facility] Chloride 101 97 - 110 mmol/L [facility] CO2 29 22 - 32 mmol/L [facility] Anion gap 5 2 - 15 mmol/L [facility] BUN 14 8 - 25 mg/dL [facility] Creatinine 0.74(L) 0.80 - 1.30 mg/dL [facility] Glucose 121 70 - 199 mg/dL [facility] Comment: Interpretive Data Fasting glucose >/= [...] Calcium 8.6 8.5 - 10.3 mg/dL [facility] Blood specimen (specimen) 12/16/2020 10:28 PM CDT 12/16/2020 11:27 PM CDT Corine Hodgson MD LAB BLOOD ORDERABLES Griselda mitchell Result [facility] [place] [address] * Phosphorus (12/15/2020 9:45 PM CDT) Pathologist [facility] Phosphorus, pl 3.7 2.3 - 4.5 mg/dL [facility] Blood specimen (specimen) 12/15/2020 9:45 PM CDT 12/15/2020 10:29 PM CDT Corine Hodgson MD LAB BLOOD ORDERABLES Griselda l Result [facility] [place] [address] * Magnesium (12/15/2020 9:45 PM CDT) Pathologist [facility] Magnesium 2.1 1.4 - 2.5 mg/dL [facility] Blood specimen (specimen) 12/15/2020 9:45 PM CDT 12/15/2020 10:29 PM CDT Corine Hodgson MD LAB BLOOD ORDERABLES Griselda l Result Performing Organization Address [facility] Center/[facility] Co de Phone Number [facility] [place] [address] * (ABNORMAL) CBC without differential (12/15/2020 9:45 PM CDT) [facility] WBC 10.2(H) 3.8 - 9.9 K/cumm [facility] Hgb 9.0(L) 13.0 - 17.5 g/dL [facility] Hct 26.5(L) 38.9 - 50.3 % [facility] Plt 368 150 - 400 K/cumm [facility] MPV 9.2 9.1 - 12.3 fL [facility] RBC 2.78(L) 4.30 - 5.80 M/cumm [facility] MCV 95.3 81.3 - 96.4 fL [facility] MCH 32.4 27.1 - 33.3 pg [facility] MCHC 34.0 32.3 - 35.7 g/dL [facility] RDW CV 13.7 11.1 - 14.9 % [facility] RDW SD 47.6 35.7 - 48.1 fL [facility] NRBC abs 0.00 0.00 - 0.01 K/cumm [facility] Blood specimen (specimen) 12/15/2020 9:45 PM CDT 12/15/2020 10:30 PM CDT Corine Hodgson MD LAB BLOOD ORDERABLES Griselda l Result Performing Organization Address City/[facility]/ZIP Co de Phone Number [facility] Department [place] [address] * (ABNORMAL) Basic metabolic panel (12/15/2020 9:45 PM CDT) [facility] Sodium 130(L) 135 - 145 mmol/L [facility] Potassium, pl 4.2 3.3 - 4.9 mmol/L [facility] Chloride 98 97 - 110 mmol/L [facility] CO2 28 22 - 32 mmol/L [facility] Anion gap 4 2 - 15 mmol/L [facility] BUN 14 8 - 25 mg/dL [facility] Creatinine 0.72(L) 0.80 - 1.30 mg/dL [facility] Glucose 142 70 - 199 mg/dL [facility] Comment: Interpretive Data Fasting glucose >/= [...] Calcium 8.3(L) 8.5 - 10.3 mg/dL [facility] Blood specimen (specimen) 12/15/2020 9:45 PM CDT 12/15/2020 10:29 PM CDT Corine Hodgson MD LAB BLOOD ORDERABLES Griselda l Result Performing Organization Address [facility]/ZIP Co de Phone Number [facility] Department [place] [address] * Phosphorus (12/14/2020 8:37 PM CDT) [facility] Phosphorus, pl 3.6 2.3 - 4.5 mg/dL [facility] Blood specimen (specimen) 12/14/2020 8:37 PM CDT 12/14/2020 9:46 PM CDT Corine Hodgson MD LAB BLOOD ORDERABLES Griselda l Result Performing Organization Address City/[facility]/ZIP Co de Phone Number [facility] Department [place] [address] * Magnesium (12/14/2020 8:37 PM CDT) [facility] Magnesium 2.0 1.4 - 2.5 mg/dL [facility] Blood specimen (specimen) 12/14/2020 8:37 PM CDT 12/14/2020 9:46 PM CDT Corine Hodgson MD LAB BLOOD ORDERABLES Griselda l Result Performing Organization Address City/[facility] de Phone Number [facility] Department [place] [address] * (ABNORMAL) CBC without differential (12/14/2020 8:37 PM CDT) [facility] WBC 8.3 3.8 - 9.9 K/cumm [facility] Hgb 8.5(L) 13.0 - 17.5 g/dL [facility] Hct 25.7(L) 38.9 - 50.3 % [facility] Plt 273 150 - 400 K/cumm [facility] MPV 9.7 9.1 - 12.3 fL [facility] RBC 2.66(L) 4.30 - 5.80 M/cumm [facility] MCV 96.6(H) 81.3 - 96.4 fL [facility] MCH 32.0 27.1 - 33.3 pg [facility] MCHC 33.1 32.3 - 35.7 g/dL [facility] RDW CV 13.6 11.1 - 14.9 % [facility] RDW SD 48.2(H) 35.7 - 48.1 fL [facility] NRBC abs 0.00 0.00 - 0.01 K/cumm [facility] Blood specimen (specimen) 12/14/2020 8:37 PM CDT 12/14/2020 9:47 PM CDT us Corine Hodgson MD LAB BLOOD ORDERABLES Griselda l Result [facility] Department [place] [address] * (ABNORMAL) Basic metabolic panel (12/14/2020 8:37 PM CDT) Sodium 132(L) 135 - 145 mmol/L [facility] Potassium, pl 4.1 3.3 - 4.9 mmol/L [facility] Chloride 100 97 - 110 mmol/L [facility] CO2 28 22 - 32 mmol/L [facility] Anion gap 4 2 - 15 mmol/L [facility] BUN 15 8 - 25 mg/dL [facility] Creatinine 0.79(L) 0.80 - 1.30 mg/dL [facility] Glucose 118 70 - 199 mg/dL [facility] Comment: Interpretive Data Fasting glucose >/= [...] Calcium 8.4(L) 8.5 - 10.3 mg/dL [facility] Blood specimen (specimen) 12/14/2020 8:37 PM CDT 12/14/2020 9:46 PM CDT Corine Hodgson MD LAB BLOOD ORDERABLES Griselda l Result Performing Organization Address [facility] Co de Phone Number [facility] [place] [address] * Phosphorus (12/13/2020 8:48 PM CDT) Pathologist [facility] Phosphorus, pl 3.0 2.3 - 4.5 mg/dL [facility] Blood specimen (specimen) 12/13/2020 8:48 PM CDT 12/13/2020 9:26 PM CDT Corine Hodgson MD LAB BLOOD ORDERABLES Griselda l Result Performing Organization Address [facility] de Phone Number [facility] Department [place] [address] * Magnesium (12/13/2020 8:48 PM CDT) [facility] Magnesium 2.0 1.4 - 2.5 mg/dL [facility] Blood specimen (specimen) 12/13/2020 8:48 PM CDT 12/13/2020 9:26 PM CDT Corine Hodgson MD LAB BLOOD ORDERABLES Griselda l Result Performing Organization Address [facility] Co de Phone Number [facility] [place] [address] * (ABNORMAL) CBC without differential (12/13/2020 8:48 PM CDT) [facility] WBC 9.0 3.8 - 9.9 K/cumm [facility] Hgb 8.4(L) 13.0 - 17.5 g/dL [facility] Hct 24.9(L) 38.9 - 50.3 % [facility] Plt 209 150 - 400 K/cumm [facility] MPV 9.6 9.1 - 12.3 fL [facility] RBC 2.56(L) 4.30 - 5.80 M/cumm [facility] MCV 97.3(H) 81.3 - 96.4 fL [facility] MCH 32.8 27.1 - 33.3 pg [facility] MCHC 33.7 32.3 - 35.7 g/dL [facility] RDW CV 13.8 11.1 - 14.9 % [facility] RDW SD 49.2(H) 35.7 - 48.1 fL [facility] NRBC abs 0.00 0.00 - 0.01 K/cumm [facility] Blood specimen (specimen) 12/13/2020 8:48 PM CDT 12/13/2020 9:26 PM CDT us Corine Hodgson MD LAB BLOOD ORDERABLES Griselda mitchell Result [facility] Department [place] [address] * (ABNORMAL) Basic metabolic panel (12/13/2020 8:48 PM CDT) Sodium 134(L) 135 - 145 mmol/L [facility] Potassium, pl 4.0 3.3 - 4.9 mmol/L [facility] Chloride 100 97 - 110 mmol/L [facility] CO2 28 22 - 32 mmol/L [facility] Anion gap 6 2 - 15 mmol/L [facility] BUN 13 8 - 25 mg/dL [facility] Creatinine 0.80 0.80 - 1.30 mg/dL [facility] Glucose 129 70 - 199 mg/dL [facility] Comment: Interpretive Data Fasting glucose >/= [...] Calcium 8.3(L) 8.5 - 10.3 mg/dL [facility] Blood specimen (specimen) 12/13/2020 8:48 PM CDT 12/13/2020 9:26 PM CDT Corine Hodgson MD LAB BLOOD ORDERABLES Griselda l Result Performing Organization Address City/[facility]/ZIP Co de Phone Number [facility] [place] [address] * (ABNORMAL) Phosphorus (12/12/2020 10:53 PM CDT) Phosphorus, pl 1.8(L) 2.3 - 4.5 mg/dL [facility] Blood specimen (specimen) 12/12/2020 10:53 PM CDT 12/12/2020 11:29 PM CDT Corine Hodgson MD LAB BLOOD ORDERABLES Griselda l Result Performing Organization Address [facility] Co de Phone Number [facility] [place] [address] * Magnesium (12/12/2020 10:53 PM CDT) Magnesium 1.9 1.4 - 2.5 mg/dL [facility] Blood specimen (specimen) 12/12/2020 10:53 PM CDT 12/12/2020 11:29 PM CDT Corine Hodgson MD LAB BLOOD ORDERABLES Griselda l Result Performing Organization Address City/[facility]/ZIP Co de Phone Number [facility] Department of Laboratories [place], [place] [id number] * (ABNORMAL) CBC without differential (12/12/2020 10:53 PM CDT) Pathologist [facility] WBC 10.7(H) 3.8 - 9.9 K/cumm [facility] Hgb 8.4(L) 13.0 - 17.5 g/dL [facility] Hct 24.6(L) 38.9 - 50.3 % [facility] Plt 175 150 - 400 K/cumm [facility] MPV 9.4 9.1 - 12.3 fL [facility] RBC 2.54(L) 4.30 - 5.80 M/cumm [facility] MCV 96.9(H) 81.3 - 96.4 fL [facility] MCH 33.1 27.1 - 33.3 pg [facility] MCHC 34.1 32.3 - 35.7 g/dL [facility] RDW CV 13.6 11.1 - 14.9 % [facility] RDW SD 48.5(H) 35.7 - 48.1 fL [facility] NRBC abs 0.00 0.00 - 0.01 K/cumm [facility] Blood specimen (specimen) 12/12/2020 10:53 PM CDT 12/12/2020 11:30 PM CDT us Corine Hodgson MD LAB BLOOD ORDERABLES Griselda l Result [facility] Department [place] [address] * (ABNORMAL) Basic metabolic panel (12/12/2020 10:53 PM CDT) [facility] Sodium 130(L) 135 - 145 mmol/L [facility] Potassium, pl 4.1 3.3 - 4.9 mmol/L [facility] Chloride 97 97 - 110 mmol/L [facility] CO2 26 22 - 32 mmol/L [facility] Anion gap 7 2 - 15 mmol/L [facility] BUN 11 8 - 25 mg/dL [facility] Creatinine 0.82 0.80 - 1.30 mg/dL [facility] Glucose 109 70 - 199 mg/dL [facility] Comment: Interpretive Data Fasting glucose >/= [...] Calcium 8.0(L) 8.5 - 10.3 mg/dL [facility] Blood specimen (specimen) 12/12/2020 10:53 PM CDT 12/12/2020 11:29 PM CDT Corine Hodgson MD LAB BLOOD ORDERABLES Griselda l Result Performing Organization Address [facility] Co de Phone Number [facility] [place] [address] * FL Fluoroscopy < 1 Hour (12/12/2020 1:59 PM CDT) Narrative [id number] - 12/12/2020 1:59 PM CDT The images from this study are not interpreted by Radiology. ??Please refer to the physician's procedure / OR operative note. No Thomas MD IMG FLUOROSCOPY PROCEDURES F inal Result Performing Organization Address [facility] Co de Phone Number [email or web address] * Gentamicin level random (12/12/2020 8:36 AM CDT) Gentamicin random <0.3 mcg/mL [facility] Comment: Interpretive Data No reference ranges have been established for random drug levels. Current Interpretive Data was last revised on 2020. Blood specimen (specimen) 12/12/2020 8:36 AM CDT 12/12/2020 8:47 AM CDT Corine Hodgson MD LAB BLOOD ORDERABLES Griselda l Result Performing Organization Address [facility] de Phone Number [facility] [place] [address] * (ABNORMAL) Phosphorus (12/11/2020 8:43 PM CDT) [facility] Phosphorus, pl 1.9(L) 2.3 - 4.5 mg/dL [facility] Blood specimen (specimen) 12/11/2020 8:43 PM CDT 12/11/2020 9:34 PM CDT Corine Hodgson MD LAB BLOOD ORDERABLES Griselda l Result Performing Organization Address [facility] de Phone Number [facility] Department [place] [address] * Magnesium (12/11/2020 8:43 PM CDT) [facility] Magnesium 1.7 1.4 - 2.5 mg/dL [facility] Blood specimen (specimen) 12/11/2020 8:43 PM CDT 12/11/2020 9:34 PM CDT Corine Hodgson MD LAB BLOOD ORDERABLES Griselda l Result Performing Organization Address [facility] Co de Phone Number [facility] [place] [address] * (ABNORMAL) CBC without differential (12/11/2020 8:43 PM CDT) [facility] WBC 12.7(H) 3.8 - 9.9 K/cumm [facility] Hgb 9.3(L) 13.0 - 17.5 g/dL [facility] Hct 27.6(L) 38.9 - 50.3 % [facility] Plt 158 150 - 400 K/cumm [facility] MPV 9.7 9.1 - 12.3 fL [facility] RBC 2.86(L) 4.30 - 5.80 M/cumm [facility] MCV 96.5(H) 81.3 - 96.4 fL [facility] MCH 32.5 27.1 - 33.3 pg [facility] MCHC 33.7 32.3 - 35.7 g/dL [facility] RDW CV 13.5 11.1 - 14.9 % [facility] RDW SD 47.8 35.7 - 48.1 fL [facility] NRBC abs 0.00 0.00 - 0.01 K/cumm [facility] Blood specimen (specimen) 12/11/2020 8:43 PM CDT 12/11/2020 9:35 PM CDT Corine Hodgson MD LAB BLOOD ORDERABLES Griselda mitchell Result [facility] [place] [address] * (ABNORMAL) Basic metabolic panel (12/11/2020 8:43 PM CDT) Sodium 133(L) 135 - 145 mmol/L [facility] Potassium, pl 4.1 3.3 - 4.9 mmol/L [facility] Chloride 102 97 - 110 mmol/L [facility] CO2 27 22 - 32 mmol/L [facility] Anion gap 4 2 - 15 mmol/L [facility] BUN 8 8 - 25 mg/dL [facility] Creatinine 0.92 0.80 - 1.30 mg/dL [facility] Glucose 125 70 - 199 mg/dL [facility] Comment: Interpretive Data Fasting glucose >/= [...] Calcium 8.1(L) 8.5 - 10.3 mg/dL [facility] Blood specimen (specimen) 12/11/2020 8:43 PM CDT 12/11/2020 9:34 PM CDT Corine Hodgson MD LAB BLOOD ORDERABLES Griselda l Result [facility] [place] [address] * Phosphorus (12/10/2020 8:36 PM CDT) Phosphorus, pl 2.3 2.3 - 4.5 mg/dL [facility] Blood specimen (specimen) 12/10/2020 8:36 PM CDT 12/10/2020 9:25 PM CDT Corine Hodgson MD LAB BLOOD ORDERABLES Griselda l Result Performing Organization Address [facility] Co de Phone Number [facility] Department [place] [address] * Magnesium (12/10/2020 8:36 PM CDT) Magnesium 1.6 1.4 - 2.5 mg/dL [facility] Blood specimen (specimen) 12/10/2020 8:36 PM CDT 12/10/2020 9:25 PM CDT Corine Hodgson MD LAB BLOOD ORDERABLES Griselda l Result Performing Organization Address City/[facility]/ZIP Co de Phone Number [facility] Department of Laboratories [place], [place] [id number] * (ABNORMAL) CBC without differential (12/10/2020 8:36 PM CDT) [facility] WBC 13.0(H) 3.8 - 9.9 K/cumm [facility] Hgb 10.2(L) 13.0 - 17.5 g/dL [facility] 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 Per Yolanda Graf -yulissa- patient had surgery on 12-09-20 Hct 30.4(L) 38.9 - 50.3 % [facility] Plt 204 150 - 400 K/cumm [facility] MPV 10.2 9.1 - 12.3 fL [facility] RBC 3.18(L) 4.30 - 5.80 M/cumm [facility] MCV 95.6 81.3 - 96.4 fL [facility] MCH 32.1 27.1 - 33.3 pg [facility] MCHC 33.6 32.3 - 35.7 g/dL [facility] RDW CV 13.7 11.1 - 14.9 % [facility] RDW SD 48.2(H) 35.7 - 48.1 fL [facility] NRBC abs 0.00 0.00 - 0.01 K/cumm [facility] Blood specimen (specimen) 12/10/2020 8:36 PM CDT 12/10/2020 9:25 PM CDT us Corine Hodgson MD LAB BLOOD ORDERABLES Griselda l Result [facility] Department [place] [address] * (ABNORMAL) Basic metabolic panel (12/10/2020 8:36 PM CDT) [facility] Sodium 132(L) 135 - 145 mmol/L [facility] Potassium, pl 4.8 3.3 - 4.9 mmol/L [facility] Comment:Hemolyzed; Potassium value may be falsely elevated by as much as 0.6-1.0 mmol/L. Suggest redraw and reanalysis. Chloride 104 97 - 110 mmol/L [facility] CO2 27 22 - 32 mmol/L [facility] Anion gap 1(L) 2 - 15 mmol/L [facility] BUN 8 8 - 25 mg/dL [facility] Creatinine 0.90 0.80 - 1.30 mg/dL [facility] Glucose 126 70 - 199 mg/dL [facility] Comment: Interpretive Data Fasting glucose >/= [...] Calcium 8.3(L) 8.5 - 10.3 mg/dL [facility] Blood specimen (specimen) 12/10/2020 8:36 PM CDT 12/10/2020 9:25 PM CDT us Corine Hodgson MD LAB BLOOD ORDERABLES Griselda l Result Performing Organization Address City/[facility]/ZIP Co de Phone Number [facility] Department [place] [address] * Check Sample (12/10/2020 8:36 PM CDT) ABO Rh A Positive [facility] HCLL OTHER 12/10/2020 8:36 PM CDT 12/10/2020 9:33 PM CDT Corine Hodgson MD LAB BLOOD ORDERABLES Griselda l Result Performing Organization Address [facility]/ZIP Co de Phone Number [facility] Department [place] [address] * CT Maxiliofacial WO Contrast W 3D [...] by: Abdiel Umanzor M.D. Yaa Fowler MD IM CT PROCEDURES Final Re sult * Type and screen (12/10/2020 3:19 AM CDT) ABO Rh A Positive [facility] THOMAS Van, indirect Negative [facility]EL[facility] THOM[facility] Blood specimen (specimen) 12/10/2020 3:19 AM CDT 12/10/2020 3:31 AM CDT Narrative ENEDELIA WORLEY - 12/10/2020 4:50 AM CDT Has the patient had Daratumumab or Isatuximab in the past 6 months?->Unknown Yaa Fowler MD LAB BLOOD BANK TEST ORDERA BLES Final Result ENEDELIA THOMAS [facility] [place] [address] * XR Ankle Left 3 or More [...] RBC: 1 Units (12/10/2020 1:25 AM CDT) [facility] Product code [id number] [facility] Unit Number [id number] [facility] Product Blood Type APOS [facility] Dispense Status RETURNED [facility] Blood specimen (specimen) 12/10/2020 1:25 AM CDT 12/10/2020 1:25 AM CDT Narrative [facility] - 12/13/2020 7:58 AM CDT Are special requirements needed? (all products are leukoreduced)->No Date required:-20201210 LRRBC # of [id number] Reasons:-Intra-op transfusion} us Yaa Fowler MD BLOOD BANK PRODUCT ORDERAB LES Final Result Performing Organization Address [facility] Co de Phone Number [facility] [place] [address] * POCT glucose (12/10/2020 12:10 AM CDT) Glucose, POC 122 70 - 199 mg/dL [facility] Blood specimen (specimen) 12/10/2020 12:10 AM CDT 12/10/2020 12:10 AM CDT Irwin Chi MD LAB POCT ORDERABLES - DEVICE F inal Result Performing Organization Address [facility] de Phone Number [facility] Department [place] [address] * (ABNORMAL) POCT glucose (12/09/2020 11:26 PM CDT) Glucose, POC 63(L) 70 - 199 mg/dL [facility] Blood specimen (specimen) 12/09/2020 11:26 PM CDT 12/09/2020 11:26 PM CDT us Irwin Chi MD LAB POCT ORDERABLES - DEVICE F inal Result Performing Organization Address [facility] Co de Phone Number [facility] Department [place] [address] * (ABNORMAL) Urinalysis, microscopic only (12/09/2020 10:51 PM CDT) WBC, ur 0-5 0 - 5 /HPF [facility] RBC, ur 0-2 0 - 2 /HPF [facility] Bacteria, ur Trace(A) [facility] Mucous, ur Present(A) [facility] Culture Reflex Comment Reflex conditions for urine culture (WBC >10) not met. [facility] Urine 12/09/2020 10:5 1 PM CDT 12/09/2020 11:13 PM CDT us Stephanie Kennedy MD LAB URINE ORDERABLES Final Resu lt [facility] [place] [address] * COVID-19 Coronavirus antigen Nasopharyngeal (12/09/2020 10:51 PM CDT) Pathologist [facility] COVID-19 Ag Presumptive Negative Presumptive Negative [facility] Comment: Interpretive data: Testing was performed under Emergency Use Authorization using the [employer] Veritor System for detection of SARS-CoV-2 nucleocapsid [...] October 2020. Employeed in healthcare? No [facility] status? No [facility] Group care resident? No [facility] Hospitalized? No [facility] Is patient in ICU? No [facility] Symptomatic as defined by CDC? No [facility] Nasopharyngeal 12/09/2020 10 :51 PM CDT 12/09/2020 11:20 PM CDT Narrative [facility] - 12/09/2020 11:46 PM CDT Reason for testing?->Likely to be admitted to semi-private room Yaa Fowler MD LAB MICROBIOLOGY - GENERAL ORDERABLES Final Result [facility] Department [place] [address] * (ABNORMAL) Drugs of Abuse Screen, Urine without Confirmation (12/09/2020 10:51 PM CDT) Pathologist [facility] Amphetamine, ur Detected(A) CutOff 500ng/mL [facility] Comment: Interpretive Data - Amphetamines: ??Samples containing greater than 500 ng/mL d-methamphetamine ??or other cross-reacting amphetamine compounds are reported as positive. ??Amphetamine immunoassays are subject to significant false positive rates due to cross-reactivity of non-amphetamine drugs. Current Interpretive Data was last reviewed 2018. Barbiturates, ur Not Detected CutOff 200ng/mL [facility] Comment: Interpretive Data - Barbiturates: ??Samples containing greater than 200 ng/mL secobarbital or other cross-reacting barbiturate compounds are reported as positive. ??False positive and false negative results are possible. Current Interpretive Data was last reviewed 2018. Benzodiazepines, ur Not Detected CutOff 100ng/mL [facility] Comment: Interpretive Data - Benzodiazepines: ??Samples containing greater than 100 ng/mL nordiazepam or other cross-reacting compounds are reported as positive. ?? False positive and false negative results are possible. ?? Current Interpretive Data was last reviewed 2018. Cannabinoids, ur Detected(A) CutOff 50 ng/mL [facility] Comment: Interpretive Data - Cannabinoids: ??Samples containing greater than 50 ng/mL delta-9 THC -COOH or other cross-reacting compounds are reported as positive. ??False positive and false negative results are possible. ?? Current Interpretive Data was last reviewed 2018. Cocaine, ur Detected(A) CutOff 150ng/mL [facility] Comment: Interpretive Data - Cocaine: ??Samples containing greater than 150 ng/mL benzoylecgonine or other cross-reacting compounds are reported as positive. False positive and false negative results are possible. Current Interpretive Data was last reviewed 2018. Fentanyl, Ur Detected(A) Cutoff 1 ng/mL [facility] Comment: Interpretive Data - Fentanyls: ??Samples containing greater than 1 ng/mL fentanyl or other cross-reacting fentanyl compounds are reported as detected. ??False positive and false negative results are possible. Current Interpretive Data was last reviewed 2019. Methadone, ur Not Detected CutOff 300ng/mL [facility] Comment: Interpretive Data - Methadone: ??Samples containing greater than 300 ng/mL d,l-methadone or other cross-reacting compounds are reported as positive. ??False positive and false negative results are possible. Current Interpretive Data was last reviewed 2018. Opiates, ur Not Detected CutOff 300ng/mL [facility] Comment: Interpretive Data - Opiates: ??Samples containing greater than 300 ng/mL morphine or other cross-reacting compounds are reported as positive. ??False positive and false negative results are possible. Current Interpretive Data was last reviewed 2018. Oxycodone, ur Not Detected CutOff 100ng/mL [facility] Comment: Interpretive Data - Oxycodone: ??Samples containing greater than 100 ng/mL oxycodone or other cross-reacting compounds are reported as positive. ??False positive and false negative results are possible. ?? Current Interpretive Data was last reviewed 2018. Phencyclidine, ur Not Detected CutOff 25 ng/mL [facility] Comment: Interpretive Data - Phencyclidine: ??Samples containing greater than 25 ng/mL phencyclidine or other cross-reacting compounds are reported as positive. ??False positive and false negative results are possible. ?? Current Interpretive Data was last reviewed 2018. Urine Creatinine 220 mg/dL [facility] Comment: Interpretive Data Urine Creatinine: < 10 mg/dL is extremely dilute = or > 10 but < 20 mg/dL is dilute = or > 20 mg/dL is normal Current Interpretive Data was last revised on 2017. Urine 12/09/2020 10:5 1 PM CDT 12/09/2020 11:15 PM CDT Narrative [facility] - 12/10/2020 12:00 AM CDT Drug of Abuse screening is performed by immunoassay for medical purposes only. ??This is not to be used for Pain Management purposes. us Stephanie Kennedy MD LAB URINE ORDERABLES Final Resu lt [facility] Department [place] [address] * (ABNORMAL) Urinalysis reflex to microscopic and culture Urine (12/09/2020 10:51 PM CDT) Color, ur Yellow Yellow [facility] Clarity, ur Cloudy(A) Clear [facility] Specific gravity, ur 1.007(L) 1.010 - 1.025 [facility] pH, urine 6 [facility] Protein, ur ql 2+(A) Negative [facility] Glucose, ur ql Negative Negative [facility] Ketones, ur Negative Negative [facility] Bilirubin, ur Negative Negative [facility] Blood, ur 2+(A) Negative [facility] Urobilinogen, ur <2.0 <2.0 mg/dL [facility] Nitrite, ur Negative Negative [facility] Leukocyte esterase, ur Negative Negative [facility] UA reflex comment Reflex to microscopic UA will be performed. [facility] Urine 12/09/2020 10:5 1 PM CDT 12/09/2020 11:13 PM CDT Narrative [facility] - 12/10/2020 1:20 AM CDT ?? Urine pH is affected by diet, medications, systemic acid-base disturbances, and renal tubular function. ??pH may affect urinary stone formation. ??For example, urine pH below 6.0 may help reduce the tendency for calcium phosphate stones and pH greater than 6.0 may reduce the tendency for uric acid stone formation. Source: [employer]. Last revised 09-11-2017 us Stephanie Kennedy MD LAB MICROBIOLOGY - GENERAL JENNIFER SHANNANBRENDAN Final Result [facility] Department [place] [address] * XR Ankle Right 3 or More Views (12/09/2020 9:47 PM CDT) Anatomical Region Laterality Modality Lower Extremities, Ankle Right Compute d Radiography 12/09/2020 10:3 5 PM CDT Addenda Addendum by Obey Nichole MD on 03/14/2021 8:54 AM CDT Patient has had orthopedic follow up visits. ??Mary YADAV, RN. Edited by: Mary Saavedra Electronically signed by: bOey Nichole M.D. Impressions 12/10/2020 11:51 AM CDT [...] visits. ??Mary YADAV, RN. Edited by: Mary Saaverda Electronically signed by: Obey Nichole M.D. Impressions [...] XR PROCEDURES Edited Result - Final * [facility] ILL/INJURED PATIENT INIT 30-74 MIN [...] Desmond Landers M.D, PHD Stephanie Kennedy MD IM CT PROCEDURES Final Result * CT Recon [...] Creatinine POC 1.2 0.7 - 1.3 mg/dL ENEDELIA WORLEY Blood specimen (specimen) 12/09/2020 7:48 PM CDT 12/09/2020 7:48 PM CDT us Notinfile Unknown LAB POCT ORDERABLES - DEVICE F inal Result [facility] Department [place] [address] * XR Pelvis 1 or 2 Views [...] view. Electronically signed by: Ivan Mckinney M.D. us Stephanie Kennedy MD [facility] [place] [facility] XR PROCEDURES Final Result * XR Chest [...] view. Electronically signed by: Ivan Mckinney M.D. us Stephanie Kennedy MD [facility] [place] XR PROCEDURES Final Result * (ABNORMAL) Differential, auto (12/09/2020 7:25 PM CDT) Neutrophil abs 14.8(H) 1.7 - 6.5 K/cumm [facility] Imm gran abs 0.2(H) 0.0 - 0.1 K/cumm [facility] Lymphocyte abs 2.8 0.8 - 3.3 K/cumm [facility] Monocyte abs 0.9(H) 0.2 - 0.8 K/cumm [facility] Eosinophil abs 0.1 0.0 - 0.5 K/cumm [facility] Basophil abs 0.1 0.0 - 0.1 K/cumm [facility] Neutrophil pct 78.6 % [facility] Comment: Interpretive Data Percent cell count reference ranges are not reported, since discordance with absolute values may lead to misinterpretation of CBC data. Current Interpretive Data was last revised on 2017. Imm gran pct 0.9 % [facility] Comment: Interpretive Data Percent cell count reference ranges are not reported, since discordance with absolute values may lead to misinterpretation of CBC data. Current Interpretive Data was last revised on 2017. Lymphocyte pct 15.0 % [facility] Comment: Interpretive Data Percent cell count reference ranges are not reported, since discordance with absolute values may lead to misinterpretation of CBC data. Current Interpretive Data was last revised on 2017. Monocyte pct 4.5 % [facility] Comment: Interpretive Data Percent cell count reference ranges are not reported, since discordance with absolute values may lead to misinterpretation of CBC data. Current Interpretive Data was last revised on 2017. Eosinophil pct 0.6 % [facility] Comment: Interpretive Data Percent cell count reference ranges are not reported, since discordance with absolute values may lead to misinterpretation of CBC data. Current Interpretive Data was last revised on 2017. Basophil pct 0.4 % [facility] Comment: Interpretive Data Percent cell count reference ranges are not reported, since discordance with absolute values may lead to misinterpretation of CBC data. Current Interpretive Data was last revised on 2017. Blood specimen (specimen) 12/09/2020 7:25 PM CDT 12/09/2020 7:33 PM CDT Result [facility] Stephanie Kennedy MD LAB BLOOD ORDERABLES Final Resu lt Performing Organization Address [facility] Co de Phone Number [facility] [place] [address] * (ABNORMAL) Ethanol (12/09/2020 7:25 PM CDT) Ethanol 15(H) <=10 mg/dL [facility] Comment: Interpretive Data Legal limit of intoxication > or = 80 mg/dL Levels > or = 400 mg/dL are potentially TOXIC. Current interpretive data was last revised on 2018. Blood specimen (specimen) 12/09/2020 7:25 PM CDT 12/09/2020 7:34 PM CDT Result [facility] Stephanie Kennedy MD LAB BLOOD ORDERABLES Final Resu lt Performing Organization Address [facility] [place] [address] * (ABNORMAL) aPTT (12/09/2020 7:25 PM CDT) aPTT 26(L) 27 - 37 sec [facility] Comment: Interpretive Data Therapeutic heparin range: 60.0 - 94.0 seconds. Based on correlation with therapeutic heparin activity range of 0.3-0.7 Units/mL. Current interpretive data was last revised on 2020. Blood specimen (specimen) 12/09/2020 7:25 PM CDT 12/09/2020 7:38 PM CDT Result [facility] Stephanie Kennedy MD LAB BLOOD ORDERABLES Final Resu lt Performing Organization Address [facility] Co de Phone Number [facility] [place] [address] * Protime-INR (12/09/2020 7:25 PM CDT) PT 12.4 9.5 - 13.6 sec [facility] INR 1.1 0.9 - 1.2 [facility] Comment: Interpretive data Oral anticoagulant therapeutic [...] LAB BLOOD ORDERABLES Final Resu lt [facility] Department [place] [address] * (ABNORMAL) Comprehensive metabolic panel (12/09/2020 7:25 PM CDT) Sodium 138 135 - 145 mmol/L [facility] Potassium, pl 3.9 3.3 - 4.9 mmol/L [facility] Chloride 105 97 - 110 mmol/L [facility] CO2 25 22 - 32 mmol/L [facility] Anion gap 8 2 - 15 mmol/L [facility] BUN 12 8 - 25 mg/dL [facility] Creatinine 1.16 0.80 - 1.30 mg/dL [facility] Glucose 156 70 - 199 mg/dL [facility] Comment: Interpretive Data Fasting glucose >/= [...] Calcium 8.6 8.5 - 10.3 mg/dL [facility] Bilirubin, total 0.3 0.1 - 1.2 mg/dL [facility] Protein, pl 6.6 6.5 - 8.5 g/dL [facility] Albumin 3.7 3.5 - 5.0 g/dL [facility] Alk phos 69 40 - 130 Units/L [facility] ALT 96(H) 7 - 55 Units/L [facility] AST 143(H) 10 - 50 Units/L [facility] Blood specimen (specimen) 12/09/2020 7:25 PM CDT 12/09/2020 7:34 PM CDT us Stephanie Kennedy MD LAB BLOOD ORDERABLES Final Resu lt [facility] Department [place] [address] * (ABNORMAL) CBC with auto differential (12/09/2020 7:25 PM CDT) WBC 18.9(H) 3.8 - 9.9 K/cumm [facility] Hgb 13.4 13.0 - 17.5 g/dL [facility] Hct 40.4 38.9 - 50.3 % [facility] Plt 279 150 - 400 K/cumm [facility] MPV 9.0(L) 9.1 - 12.3 fL [facility] RBC 4.19(L) 4.30 - 5.80 M/cumm [facility] MCV 96.4 81.3 - 96.4 fL [facility] MCH 32.0 27.1 - 33.3 pg [facility] MCHC 33.2 32.3 - 35.7 g/dL [facility] RDW CV 13.4 11.1 - 14.9 % [facility] RDW SD 48.0 35.7 - 48.1 fL [facility] NRBC abs 0.00 0.00 - 0.01 K/cumm [facility] Blood specimen (specimen) 12/09/2020 7:25 PM CDT 12/09/2020 7:33 PM CDT us Stephanie Kennedy MD LAB BLOOD ORDERABLES Final Resu lt [facility] Department [place] [address] documented in this encounter Visit Diagnoses Diagnosis Closed nondisplaced fracture of posterior wall of left acetabulum (HCC)- Primary Pilon fracture of right tibia, closed, initial encounter Open displaced fracture of body of right calcaneus, initial encounter Laceration of left forearm, initial encounter Closed nondisplaced fracture of posterior wall of left acetabulum, initial encounter ([facility]) Type I or II open displaced pilon fracture of right tibia, initial encounter Open fracture of nasal bone, initial encounter Vitreous hemorrhage of left eye (CMS/HCC) (HCC) Vitreous hemorrhage Closed fracture of neck of right fibula Pilon fracture of right tibia, closed, initial encounter Open displaced fracture of body of right calcaneus Laceration of left forearm Pilon fracture of right tibia, closed, initial encounter Open displaced fracture of body of right calcaneus, initial encounter Laceration of left forearm, initial encounter documented in this encounter Admitting [...] Every 6 hours scheduled, First dose on 12/10/20 at 0515 Given 12/25/2020 12:14 PM CDT 1,000 mg Given 12/25/2020 5:17 AM CDT 1,000 mg Given 12/24/2020 11:19 PM CDT 1,000 mg cyclobenzaprine (FLEXERIL) tablet 10 mg 10 mg, oral, 3 times daily, First dose on 12/10/20 at 1600 Given 12/25/2020 3:26 PM [...] daily, First dose on 12/10/20 at 2100 Given 12/25/2020 8:17 AM CDT [...] chloride 0.9% irrigation As needed, Starting on Fri12/10/20 at 0837, Intra-Op Given 12/10/2020 8:38 AM CDT 12,000 mL sodium chloride 0.9% irrigation As needed, Starting on 12/10/20 at 0838, Intra-Op Given 12/10/2020 8:38 AM CDT 1,000 mL documented in this encounter Active and Recently Administered Medications Times are shown in CDT. Scheduled Medication Order 12/23/2020 12/24/2020 12/25/2020 acetaminophen (TYLENOL) tablet 1,000 mg 1,000 mg, oral, Every 6 hours scheduled, First dose on 12/10/20 at 0515 0244 (Not Given - Provider: Allegra Watson RN - Reason: Other)0615 (Given - Provider: Allegra Watson, RN)1421 (Given - Provider: Ivan Lynn RN)1830 [...] at 1600 0957 (Given - Provider: Ivan Lynn RN)1547 (Given - Provider: Ivan Lynn RN)2227 (Given - Provider: Radha Ray, YULISSA) 1055 (Given - Provider: Jolie Arredondo, YULISSA)1659 (Given - Provider: Jolie Arredondo, YULISSA)2015 (Given - Provider: Radha Ray RN) 0816 (Given - Provider: Noris Rachel, YULISSA)1526 (Given - Provider: Noris Rachel, YULISSA) enoxaparin (LOVENOX) syringe 30 mg 30 mg, subcutaneous, Every 12 hours scheduled, First dose (after last modification) on Fri12/19/20 at 2100, Indications: Deep Vein Thrombosis Prevention 0956 (Given - Provider: Ivan Lynn, RN)2225 (Given - Provider: Radha Ray, YULISSA) 1053 (Given - Provider: Jolie Arredondo, YULISSA)2014 (Given - Provider: Radha Ray RN) 0817 (Not Given - Provider: Noris Rachel, RN - Reason: Patient/family refused) erythromycin (ILOTYCIN) 5 mg/gram (0.5 %) ophthalmic ointment each eye, 2 times daily, First dose on Fri12/18/20 at 1245, Apply 1 cm ribbon. Over facial lacerations 0957 (Given - Provider: Ivan Lynn RN)2225 (Given - Provider: Radha Ray RN) 1053 (Given - Provider: Jolie Arredondo, YULISSA)2014 (Given - Provider: Radha Ray, YULISSA) 0818 (Given - Provider: Noris Rachel, YULISSA) gabapentin (NEURONTIN) capsule 300 mg 300 mg, oral, 2 times daily, First dose on 12/10/20 at 2100 0957 (Given - Provider: Ivan Lynn, YULISSA)2226 (Given - Provider: Radha Ray RN) 1053 (Given - Provider: Jolie Arredondo, YULISSA)2014 (Given [...] 0957 (Medication Applied - Provider: Ivan Lynn, YULISSA)222 (Medication Removed - Provider: Radha Ray RN) 1055 (Not Given - Provider: Jolie Arredondo RN - Reason: Patient/family refused) 0818 (Not Given - Provider: Noris Rachel, YULISSA - Reason: Patient/family refused) polyethylene glycol (MIRALAX) packet 17 g 17 g, oral, Daily, First dose on Fri12/13/20 at 1115, Indications: constipation 0956 (Given - Provider: Ivan Lynn RN) 1055 (Given - Provider: Jolie Arredondo RN) 0818 (Not Given - Provider: Noris Rachel, YULISSA - Reason: Patient/family refused) senna-docusate (PERICOLACE) 8.6-50 mg per tablet 2 tablet 2 tablet, oral, 2 times daily, First dose (after last modification) on Fri12/13/20 at 2100 0957 (Given - Provider: Ivan Lynn RN)2227 (Given - Provider: Radha Ray RN) 1055 (Given - Provider: Jolie Arredondo RN)2014 (Given - Provider: Radha Ray, YULISSA) 0817 (Given - Provider: Noris Rachel, YULISSA) sodium chloride 0.9% flush 0.5-20 mL 0.5-20 mL, intra-catheter, Every 8 hours scheduled, First dose on Fri12/10/20 at 0600, Flush volume based on line type and size. 0616 (Given - Provider: Allegra Watson RN)1548 (Given - Provider: Ivan Lynn RN)2229 (Given - Provider: Radha Ray RN) 0525 (Given - Provider: Radha Ray, YULISSA)1254 (Given - Provider: Jolie Arredondo, YULISSA)2014 (Given - Provider: Radha Ray, YULISSA) 0520 (Given - Provider: Radha Ray, YULISSA)1427 (Not Given - Provider: Noris Rachel, YULISSA [...] Allegra Watson, RN)0956 (Given - Provider: Ivan Lynn RN)1547 (Given - Provider: Ivan Lynn, YULISSA) 0523 (Given - Provider: Radha Ray, YULISSA)1054 (Given - Provider: Jolie Arredondo, YULISSA) oxyCODONE (ROXICODONE) tablet 10 mg 10 mg, oral, Every 4 hours PRN, 2nd line for pain, Starting on Fri12/20/20 at 0809, Indications: Pain 0615 (Given - Provider: Allegra Watson, YULISSA)1421 (Given - Provider: Ivan Lynn, YULISSA)1829 (Given - Provider: Ivan Lynn, YULISSA)2229 (Given - Provider: Radha Ray RN) 0356 (Given - Provider: Radha Ray RN)0806 (Given - Provider: Kelsey Aiken, YULISSA)1253 (Given - Provider: Jolie Arredondo, YULISSA)1658 (Given - Provider: Jloie Arredondo, YULISSA)2211 (Given - Provider: Radha Ray, YULISSA) 0420 (Given - Provider: Radha Ray, YULISSA)1526 (Given - Provider: Noris Rachel, YULISSA) polyvinyl alcohol-povidone (REFRESH CLASSIC) 1.4-0.6 % ophthalmic [...] mg 3 202012/10/2020 sodium chloride 0.9% irrigation 3 12/12/2020 sterile water irrigation 3 12/21/2020 oxyCODONE (ROXICODONE) tablet 10 mg 1 [...] 12/10/2020 documented in this encounter Care Teams Imaging System Administrator Relationship Specialty Start Date End Date Unknown, Notinfile PCP - General 12/09/20 12/24/20 No, Physician 12/09/20 documented as of this encounter
--- OUTSIDE RECORDS SUMMARY | 2024-09-11 03:24 | XMS_ITS | Encounter Summary ---
Author Organization [facility] Healthcare Address [address] [place] [address] Care Team Providers Care Hotel Assistant Manager Name Role Phone No, Physician Primary Care Provider [phone] Encounter Details Date Type Department Care Team (Late st Contact Info) Description 09/05/2020 Telephone [facility] Radiation Oncology [facility] [place] [address] Dara Goldsmith RN Social History Tobacco Use Types Packs/Day Years Used Date Smoking Tobacco: Never Smokeless Tobacco: Never Alcohol Use Standard Drinks/Week Comments Yes 18 (1 standard drink = 0.6 oz pu re alcohol) Sex and Gender Information Value Date Recorded Sex Assigned at Not on file Legal Sex Male 11:16 AM TICKET PRINTER Gender Identity Not on file Sexual Orientation Not on file documented as of this encounter Miscellaneous Notes * Telephone Encounter - Dara Goldsmith RN - 09/05/2020 10:34 AM TICKET PRINTER Patient decided against RT. Per mother, he does not want radiation treatments. If something comesup and he changes his mind, we will call you back . ET PRINTER documented in this encounter Plan of Treatment Not on file documented as of this encounter Visit Diagnoses Not on filedocumented in this encounter Care Teams Hotel Assistant Manager Relationship Specialty Start Date End Date No, Physician PCP - General 05/30/20 12/08/20 documented as of this encounter
--- OUTSIDE RECORDS SUMMARY | 2024-09-11 03:24 | XMS_ITS | Encounter Summary ---
Author Organization [facility] Address [address] [place] [address] Phone Care Team Providers Care Outside Sales Name Role Phone No, Physician Primary Care Provider [phone] Reason for Visit * Reason Comments Neck Mass * Consultation (Routine) - Closed Specialty Diagnoses / Procedures Referred By Dank ashley Referred To Contact Otolaryngology Diagnoses Neck mass Joseph Shafer MD [address] [place] [address] Phone: tel: fax: [facility] (All Locations) Referral ID Status Reason Start Date Expiration Date V isits Requested Visits Authorized [id number] Closed Specialty Services Required 06/26/2020 07/26/2021 3 3 Encounter Details Date Type Department Care Team (Late st Contact Info) Description 07/04/2020 8:40 AM FLIGHT INSTRUCTOR [facility] - [facility] ENT [address] [facility] Advanced Medicine [address]th [place] [address] [place] [address] Donny Prasad MD [address] [place] [address] Mass of right side of neck (Primary Dx); Neck mass Social History Tobacco Use Types Packs/Day Years Used Date Smoking Tobacco: Former Sex and Gender Information Value Date Recorded Sex Assigned at Not on file Legal Sex Male 11:16 AM FLIGHT INSTRUCTOR Gender Identity Not on file Sexual Orientation Not on file documented as of this encounter Last Filed Vital Signs Vital Sign Reading Time Taken Comments Blood Pressure - - Pulse - - Temperature - - Respiratory Rate - - Oxygen Saturation - - Inhaled Oxygen Concentration - - Weight 89.4 kg (197 lb) 07/04/2020 8:31 AM FLIGHT INSTRUCTOR Height 177.8 cm (5' 10 ) 07/04/2020 8:31 AM FLIGHT INSTRUCTOR Body Mass Index 28.27 07/04/2020 8:31 AM FLIGHT INSTRUCTOR documented in this encounter Progress Notes * Donny Prasad MD - 07/04/2020 8:40 AM CST [facility] Department of Otolaryngology - [...] for a fine-needle aspiration that time. He returns for fine-needle aspiration today. Past Medical History: Diagnosis Date ??? Peptic [...] file Gets together: Not on file Attends mosque service: Not on file Active member of [...] to this encounter. PHYSICAL EXAM: Constitutional: Vitals: 07/04/20 0831 Weight: 89.4 kg (197 lb) Height: 177.8 cm (5' 10 ) General Appearance: Well-developed, well-nourished in no apparent [...] neck range of motion intact. PROCEDURE PERFORMED: Ultrasound-guided fine-needle aspiration: Due to new concerning findings in the right neck neck of performed an ultrasound-guided fine-needleaspiration. The procedure was explained including the risks and benefits. The risks that were discussed were pain bleeding infection risk of nondiagnostic results. Written consent was obtained. The area was any is a size with 1% lidocaine with epinephrine. I then passed 4 25 gauge needles into the mass. The patient tolerated the procedure well. DATA REVIEWED: Pathology Reports: CYTOPATHOLOGY REPORT FINAL Patient Name: ?? PATY DELUNA Gender: ??M : ??1970 (Age: 50) Address: ??[address] [place] [address] [facility] #: ??[id number] Taken:06/19/2020 Received:06/19/2020 Reported: 06/22/2020 Patient Type: [facility] Ancillary ? Service: Radiology Location: [facility] Physician(s): ??MD Joseph Mckinney M.D. FINAL DIAGNOSIS A. ??Neck mass, right, level 2, ultrasound guided fine needle aspiration: ? - Suspicious for squamous cell carcinoma (see comment) - Lymphoid component present Radiology Reports: EXAMINATION: TUMOR FDG-PET/CT IMAGING ?? DATE OF STUDY: 06/27/2020 ?? SCANNER: [facility] ?? RADIOPHARMACEUTICAL: 15.7 mCi F-18 Fluorodeoxyglucose [...] before injection of FDG, was 94 mg/dL. -Gastroview was not given orally. After intravenous administration of FDG, noncontrast CT images were obtained for attenuation correction and for fusion with emission PET images to allow for anatomical localization of PET findings. Emission PET images were then obtained. The study was interpreted on the [employer] workstation. The mean liver SUV (reported for auditor/quality purposes) is 1.9. ?? The total scanned [...] need additional tissue to make that diagnosis. Ultrasound guided fine-needle aspiration performed in clinic today. Unfortunately again there is loss of track nose debris and the same differential diagnosis remains. We will await final pathology before making final treatment decisions. Ultimately if this fails to reveal the diagnosis we discussed going to the operating room for a in neck mass resection and be prepared to do a cancer resection based on frozen pathology. Thank you for allowing me to participate in the care of Mr. Deluna. Should you have any questions orconcerns, please do not hesitate to contact my office. Warm regards, HT INSTRUCTOR documented in this encounter Plan of Treatment Not on file documented as of this encounter Visit Diagnoses Diagnosis Mass of right side of neck- Primary Neck mass Swelling, mass, or lump in head and neck documented in this encounter Orders Outpatient Referral Count Last Ordered Date Fir st Ordered Date AMB REFERRAL TO ENT 1 07/04/2020 documented in this encounter Care Teams Outside Sales Relationship Specialty Start Date End Date No, Physician PCP - General 05/30/20 12/08/20 documented as of this encounter
--- OUTSIDE RECORDS SUMMARY | 2024-09-11 03:24 | XMS_ITS | Encounter Summary ---
Author Organization [facility] Healthcare Address [address] [place] [address] Care Team Providers Care Import Coordination And Production Head Name Role Phone No, Physician Primary Care Provider [phone] Encounter Details Date Type Department Care Team (Late st Contact Info) Description 08/21/2020 Telephone [facility] Radiation Oncology [address] [facility] [place] [address] Dara Goldsmith RN Social History Tobacco Use Types Packs/Day Years Used Date Smoking Tobacco: Never Smokeless Tobacco: Never Alcohol Use Standard Drinks/Week Comments Yes 18 (1 standard drink = 0.6 oz pu re alcohol) Sex and Gender Information Value Date Recorded Sex Assigned at Not on file Legal Sex Male 11:16 AM PRODUCE SHIPPER Gender Identity Not on file Sexual Orientation Not on file documented as of this encounter Miscellaneous Notes * Telephone Encounter - Dara Goldsmith RN - 08/21/2020 10:31 AM PRODUCE SHIPPER Patient did not show to 9:45 am consultation appointment today. Called patient. Listed contact number is mother's contact number. Mother is out of town and will reschedule appointment when she returnhome. Mother was given [place] contact information and number. Verbalize understanding. UCE SHIPPER documented in this encounter Plan of Treatment Not on file documented as of this encounter Visit Diagnoses Not on filedocumented in this encounter Care Teams Import Coordination And Production Head Relationship Specialty Start Date End Date No, Physician PCP - General 05/30/20 12/08/20 documented as of this encounter
--- OUTSIDE RECORDS SUMMARY | 2024-09-11 03:24 | XMS_ITS | Encounter Summary ---
Author Organization [facility] Address [address] [place] [address] Phone Care Team Providers Care Overhead Irrigator Name Role Phone No, Physician Primary Care Provider [phone] Reason for Visit * Reason Comments Post-op mass on neck Encounter Details Date Type Department Care Team (Late st Contact Info) Description 08/16/2020 11:00 AM PASSENGER SERVICE MANAGER Office Visit [facility] - [facility] ENT [address] [facility] Advanced Medicine 11th [place] [address] [place] [address] Donny Prasad MD [address] [place], [place] [id number] Head and neck cancer (CMS/HCC) (Primary Dx); Mass of right side of neck; Tonsil cancer (CMS/HCC) Social History Tobacco Use Types Packs/Day Years Used Date Smoking Tobacco: Never Smokeless Tobacco: Never Alcohol Use Standard Drinks/Week Comments Yes 18 (1 standard drink = 0.6 oz pu re alcohol) Sex and Gender Information Value Date Recorded Sex Assigned at Not on file Legal Sex Male 11:16 AM PASSENGER SERVICE MANAGER Gender Identity Not on file Sexual Orientation Not on file documented as of this encounter Progress Notes * Donny Prasad MD - 08/16/2020 11:00 AM CST [facility] Department of Otolaryngology - Head & Neck Surgery 08/16/2020 Name: Paty Deluna Date of : 1970 Chief Complaint Patient presents with ??? Post-op mass on neck Problem List Respiratory Tonsil cancer ([facility]) Overview PROCEDURE PERFORMED ((08/07/2020 Shanice) 1. Right transoral radical tonsillectomy. Use of microscope. 2. Right neck dissection level 2A, 2B, 3, and 4. 3. Lysis of external carotid system. Ligation of lingo-facial trunk. Other Mass of right side of neck HISTORY: returns for his 1st postoperative visit. He is overall doing very well. He has some anticipated pain in his throat. He continues to have acceptable oral intake. Anticipated right-sided neck swelling. PHYSICAL EXAM: There were no vitals filed for this visit. General: Well-developed, well-nourished in no apparent distress. Appropriate affect. Head and Face: Normocephalic, atraumatic. Skin: No cutaneous lesions of the face or neck. Neurologic: Cranial nerves II through XII are grossly intact. Eyes: Pupils are equal, round, and reactive to light and accommodation. Extraocular muscles are intact. No scleral icterus or injection. Ears: Auricles well formed. Mastoid soft and nontender, no erythema. Canal is clear. Nose: Dorsum is midline. No masses or polyps visualized on anterior rhinoscopy. No drainage or discharge. Oral Cavity/Oropharynx: No visible mucosal lesions. Tongue protrudes midline, palate elevates symmetrically. Tonsils are not enlarged. Floor of mouth is pink and soft. No palpable abnormalities of the floor of mouth, oral tongue or base of tongue. Well-healing defect after right-sided radical tonsillectomy Neck: No evidence of lymphadenopathy, masses or tenderness. The salivary gland examination is normal bilaterally. Well-healing right-sided neck incision Endocrine: No palpable abnormalities of the thyroid gland. Cardiovascular: Extremities are warm and well perfused. Pulmonary: Normal quiet breathing. No respiratory distress, stridor, or wheeze. DATA REVIEWED: Pathology Reports: SURGICAL PATHOLOGY REPORT FINAL Patient Name: ?? PATY DELUNA Gender: ??M : ??1970 (Age: 50) Address: ??[address] [place] [address] [facility] #: ??[id number] Taken:08/07/2020 Received:08/07/2020 Reported: 08/14/2020 Patient Type: BJ OP In Bed ? Service: Otolaryngology Location: [place] [address] Physician(s): ??Donny Prasad M.D. Diagnosis: A. 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 Healing very well. Will need postoperative radiation therapy. No ECS and final margins negative. Return to clinic in few weeks. I have encouraged him to see his dentist in preparation for radiation therapy. ENGER SERVICE MANAGER documented in this encounter Plan of Treatment Not on file documented as of this encounter Visit Diagnoses Diagnosis Head and neck cancer (HCC)- Primary Mass of right side of neck Tonsil cancer (CMS/HCC) (HCC) Malignant neoplasm of tonsil documented in this encounter Care Teams Overhead Irrigator Relationship Specialty Start Date End Date No, Physician PCP - General 05/30/20 12/08/20 documented as of this encounter
--- OUTSIDE RECORDS SUMMARY | 2024-09-11 03:24 | XMS_ITS | Encounter Summary ---
Author Organization [facility] Address [address] [facility] [address] [place] [address] Phone Care Team Providers Care Circuit Board Repair Technician Name Role Phone Unknown, Notinfile Primary Care Provider Unavail able Unknown, Notinfile Primary Care Provider Unavail able No, Physician Unavailable No, Physician Primary Care Provider [phone] Encounter Details Date Type Department Care Team (Late st Contact Info) Description 12/11/2020 Ophth Exam [facility] Ophthalmology [address] [place] [address] 1st [place] [id number] Kirill Sanchez MD [address] [place], [place] [id number] Social History Tobacco Use Types Packs/Day Years Used Date Smoking Tobacco: Every Day Smokeless Tobacco: Never Alcohol Use Standard Drinks/Week Comments Yes 0 (1 standard drink = 0.6 oz pur e alcohol) Sex and Gender Information Value Date Recorded Sex Assigned at Not on file Legal Sex Male 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 Gender Identity Not on file Sexual Orientation Not on file documented as of this encounter Plan of Treatment Not on file documented as of this encounter Visit Diagnoses Not on filedocumented in this encounter Eye Exam Visual Acuity Right eye Left eye Near cc 20/30- CF @ 4' Tonometry (Tonopen, 11:56 AM) Right eye Left eye Pressure 16 17 Pupils Dark Light Shape React APD Right eye 3 2 Round Brisk - Left eye 5.5 5.5 ovid NR - by rev Visual Doyle (Counting fingers) Right eye Left eye Full Full Extraocular Movement Right eye Left eye Full Full External Exam Right eye Left eye External Normal Periorbital ecch ymosis Slit Lamp Exam Right eye Left eye Lids/Lashes Normal Ecchymosis, swel ling Conjunctiva/Sclera White and quiet, no Subconjunctival hemorrhage Temporal bullous MARILUZ Cornea Clear, no Epithelial defect Brionna r, no Epithelial defect Anterior Chamber Deep and formed Deep and quiet, Deep Iris Round and reactive ovid extendin g ST, NR Lens PCIOL Tr NS Anterior Vitreous Normal Normal Fundus Exam Right eye Left eye Posterior Vitreous Normal Hemorrhage mo re inferiroly Disc Normal, sharp margin s, no elevation, no pallor ernesto-disc heme, no pallor, no edema C/D Ratio 0.2 0.2 Macula Normal, flat, no heme Overlying pre-retinal heme, flat, attached Vessels Normal c/c Normal c/c Periphery Normal, no heme, att ached 360 w/o RD/RT pre-retinal heme more inferiorly, grossly attached 360 Care Teams Circuit Board Repair Technician Relationship Specialty Start Date End Date Unknown, Notinfile PCP - General 12/09/20 12/24/20 Unknown, Notinfile PCP - General 12/25/20 02/27/21 No, Physician PCP - General 02/28/21 No, Physician 12/09/20 documented as of this encounter
--- OUTSIDE RECORDS SUMMARY | 2024-09-11 03:24 | XMS_ITS | Encounter Summary ---
Author Organization [facility] Healthcare Address [address] [place] [address] Care Team Providers Care College Director Name Role Phone No, Physician Primary Care Provider [phone] Encounter Details Date Type Department Care Team (Late st Contact Info) Description 08/31/2020 Telephone [facility] Advanced Medicine Radiation Oncology [address] [facility] [place] [address] Dara Goldsmith RN Social History Tobacco Use Types Packs/Day Years Used Date Smoking Tobacco: Never Smokeless Tobacco: Never Alcohol Use Standard Drinks/Week Comments Yes 18 (1 standard drink = 0.6 oz pu re alcohol) Sex and Gender Information Value Date Recorded Sex Assigned at Not on file Legal Sex Male 11:16 AM SUPERVISOR HOT DIP PLATING Gender Identity Not on file Sexual Orientation Not on file documented as of this encounter Miscellaneous Notes * Telephone Encounter - Dara Goldsmith RN - 08/31/2020 9:27 AM SUPERVISOR HOT DIP PLATING Spoke to patient's mother regarding rescheduling of consultation appointment. Mom just returned from [place] on yesterday evening. She has not spoken to patient. Unsure if patient agree to consultation and treatment. Plan to talk to patient this weekend and will have an answer on Monday 09/04. Will call mom on Friday or Friday next week. Verbalize understanding. RVISOR HOT DIP PLATING documented in this encounter Plan of Treatment Not on file documented as of this encounter Visit Diagnoses Not on filedocumented in this encounter Care Teams College Director Relationship Specialty Start Date End Date No, Physician PCP - General 05/30/20 12/08/20 documented as of this encounter
--- OUTSIDE RECORDS SUMMARY | 2024-09-11 03:24 | XMS_ITS | Encounter Summary ---
Author Organization [facility] Healthcare Address [address] [place] [address] Care Team Providers Care Banquet Supervisor Name Role Phone No, Physician Primary Care Provider [phone] Reason for Referral * Diagnostic Imaging (Routine) - Closed Specialty Diagnoses / Procedures Referred By Contac t Referred To Contact Radiology Diagnoses Metastatic squamous cell carcinoma Procedures PET/CT FDG Skull to Thigh Donny Prasad MD [address] [address] Phone: tel: fax: [address] [phone] Referral ID Status Reason Start Date Expiration Date Visits Re quested Visits Authorized [id number] Closed 06/23/2020 08/07/2020 2 2 Reason for Visit * Diagnostic Imaging (Routine) - Closed Specialty Diagnoses / Procedures Referred By Contac t Referred To Contact Radiology Diagnoses Metastatic squamous cell carcinoma Procedures PET/CT FDG Skull to Thigh Donny Prasad MD [address] [address] Phone: tel: fax: [address] [phone] Referral ID Status Reason Start Date Expiration Date Visits Re quested Visits Authorized [id number] Closed 06/23/2020 08/07/2020 2 2 Encounter Details Date Type Department Care Team (Latest Contact Info) Description 06/27/2020 10:04 AM CDT - 06/27/2020 11:59 PM CDT Hospital Encounter [facility] [address] [place] [address] Donny Prasad MD [address] [place] [address] Metastatic squamous cell carcinoma (CMS/HCC) Discharge Disposition: Discharge to home or self care Social History Tobacco Use Types Packs/Day Years Used Date Smoking Tobacco: Former Sex and Gender Information Value Date Recorded Sex Assigned at Not on file 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 Gender Identity Not on file Sexual Orientation Not on file documented as of this encounter Last Filed Vital Signs Vital Sign Reading Time Taken Comments Blood Pressure - - Pulse - - Temperature - - Respiratory Rate - - Oxygen Saturation - - Inhaled Oxygen Concentration - - Weight 81.2 kg (179 lb) 06/27/2020 10:55 AM CDT Height 177.8 cm (5' 10 ) 06/27/2020 10:55 AM CDT Body Mass Index 25.68 06/27/2020 10:55 AM CDT documented in this encounter Discharge Disposition Disposition Code Departure Means Destination Discharge to home or self care documented in this encounter Plan of Treatment Not on file documented as of this encounter Procedures Procedure Name Priority Date/Time Associated Diagnosis Comments CYTOLOGY Routine 07/04/2020 8:55 AM TIMBER MILL WORKER PET/CT FDG SKULL TO THIGH Schedule Routine, Read Routine (OP Routine) 06/27/2020 11:52 AM CDT Metastatic squamous cell carcinoma (CMS/HCC) documented in this encounter Results * Cytology (07/04/2020 8:55 AM TIMBER MILL WORKER) 07/04/2020 8:55 AM TIMBER MILL WORKER 07/04/2020 10:27 AM TIMBER MILL WORKER Narrative 07/06/2020 5:33 PM TIMBER MILL WORKER EPIC results best viewed via link to PDF [facility] [place] [address] CYTOPATHOLOGY REPORT FINAL Patient Name: ?? PATY DELUNA Gender: ??M : ??1970 (Age: 50) Address: ??[address] [place] [address] Hospital #: ??[id number] Taken:07/04/2020 Received:07/04/2020 Reported: 07/06/2020 Patient Type: [facility] Ancillary ?? Service: Radiology Location: [facility] Physician(s): ??Donny Prasad M.D. FINAL DIAGNOSIS A. Cervical region, right, neck mass, ultrasound guided fine needle aspiration: ? - Suspicious for squamous cell carcinoma (see comment) Comments Direct smears and the cell block demonstrate keratinaceous debris admixed with lymphocytes. Rare elongated epithelioid cells with keratinization are identified. These cells demonstrate anisonucleosis and irregular nuclear borders, consistent with mild atypia. P40 and P16 immunohistochemical stains (single antibody procedures with appropriate controls) are performed to characterize the atypical cell population and demonstrate immunoreactivity in rare, viable cells. These findings are suspicious for squamous cell carcinoma, however a definitive diagnosis is precluded by the degree of necrosis and degeneration; therefore, we recommend an excisional biopsy. cab/07/05/2020 12:47 By this signature, I attest that the above diagnosis is based upon my personal examination of the slides(and/or other material indicated in the diagnosis). Naomi Steele M.D. Report Electronically Reviewed and Signed Out By ??Naomi Steele M.D. 07/06/2020 17:33:23 Luis Downs, CT(ASCP), CFIAC Gross Description A. ??Cervical region, right,(neck mass), ultrasound guided fine needle aspiration: ? Clinical Diagnosis and History The patient is a 50 year old man with right side neck mass. Immediate Evaluation A. ??Cervical region, right,(neck mass), ultrasound guided fine needle aspiration: ? Evaluation Episode 1 Overall Adequacy: Indeterminate Total Evaluation Episodes: 1 Daryl Stout D.O. 07/04/2020 REPORT IMAGES AND SCANNED DOCUMENTS, IF INCLUDED, ONLY VIEWABLE IN PDF VERSION OF REPORT The performance characteristics of some immunohistochemical stains, in-situ hybridization and fluorescence in-situ hybridization tests and immunophenotyping by flow cytometry cited in this report (if any) were determined by the Surgical Pathology Department at [facility] as part of an ongoing quality control expert program and in compliance with federally mandated [...] following disclaimer be attached to the report: ??This test was developed and its performance characteristics determined by the Surgical Pathology Department of [facility]. ??It has not been cleared or approved by the U. S. Food and Drug Administration. Donny Prasad MD LAB CYTOLOGY ORDERABLES Final Result * PET/CT FDG Skull to Thigh (06/27/2020 11:52 AM CDT) Anatomical Region Laterality Modality N/A Positron Emissio n Tomography (PET) 06/27/2020 2:55 PM CDT Impressions 06/27/2020 3:11 PM CDT Right tonsillar hypermetabolic soft tissue fullness, concerning for the site of primary squamous cell carcinoma. ??Enlarged conglomerate of right neck level 2 lymph nodes are compatible with local john involvement. ?? Dictated by: Diogo Sarabia M.D. The radiology attending physician has personally reviewed this study, and had reviewed and/or edited this written report and agrees with it. Electronically signed by: Jason Wiggins M.D. Narrative 06/27/2020 3:11 PM CDT EXAMINATION: TUMOR FDG-PET/CT IMAGING DATE OF STUDY: ??06/27/2020 SCANNER: T RADIOPHARMACEUTICAL: 15.7 mCi F-18 Fluorodeoxyglucose (FDG) i.v. Injection site: Right antecubital fossa HISTORY: 50-year-old man with enlarged right neck mass, which appeared to be a necrotic level 2 lymph node with cytology results suspicious for squamous cell carcinoma. ??The study is requested for initial staging. Initial treatment strategy. TECHNIQUE: ?? The patient's fasting blood glucose level, measured by glucometer before injection of FDG, was 94 mg/dL. ??MD-Gastroview was not given orally. ??After intravenous administration of FDG, noncontrast CT images were obtained for attenuation correction and for fusion with emission PET images to allow for anatomical localization of PET findings. ??Emission PET images were then obtained. ??The study was interpreted on the [employer] workstation. ??The mean liver SUV (reported for quality systems technician purposes) is 1.9. ?? The total scanned area was skull vertex to the proximal thighs. Images of the head and neck were obtained starting 50 minutes after injection of tracer. Images of the body were obtained starting 59 minutes after injection of tracer. COMPARISON: Outside neck CT 05/22/2020, head and neck diagnostic ultrasound and FNA 06/19/2020 FINDINGS: There is asymmetric fullness of the right tonsillar region extending towards the glossotonsillar sulcus, with maximum SUV of 13.6 (axial image 77, head/neck acquisition). ??This is suspicious for site of primary tumor. ??Superiorly, it extends to the level of the hard palate. ??Inferiorly, the extent of tumor is probably above the glossotonsillar sulcus, but is more difficult to ascertain, as normal physiologic bilateral base of tongue and glossotonsillar sulcus activity is also present. Lateral and inferior to the presumed primary, there is a large, heterogeneously low attenuation mass corresponding to the conglomerate of necrotic lymph nodes seen on the outside CT. ??This measures up to approximately 3.5 x 2.5 cm in greatest axial dimensions (axial image 92, head/neck). ??There is heterogeneous FDG uptake with areas of internal photopenia compatible with necrosis. The most metabolically active portion is at the superior/lateral margin, where maximum SUV of 7.5 is seen (axial image 84). A small right level 3 lymph node with mild FDG uptake is nonspecific (axial image 101), probably reactive/inflammatory. There is a small left-sided node at the level 2/3 junction, with activity at or just above blood pool (axial image 98 of the head/neck); this is indeterminate and nonspecific, but given the low level uptake, and in the setting of this type of tumor, disease involvement is considered unlikely, and this node is probably reactive/inflammatory. No evidence of metastatic disease below the neck. Moderate uptake in the proximal stomach could be physiologic or secondary to gastritis. Incidentally noted is a standing column of FDG-rich urine within the penis. Additional CT findings: Mild coronary artery disease, but with a dense calcification in the proximal left anterior descending artery. Otherwise minimal atherosclerosis. ??Calcified granulomas in the bilateral lungs, tona, and mediastinum. ??Calcified splenic granulomas. ??Dystrophic calcifications within the minimally enlarged prostate. ??Fixation hardware in the proximal right femur. ??Scattered bone islands. Procedure Note Jason Chacko MD - 06/27/2020 EXAMINATION: TUMOR FDG-PET/CT IMAGING DATE OF STUDY: 06/27/2020 SCANNER: [facility] RADIOPHARMACEUTICAL: 15.7 mCi F-18 Fluorodeoxyglucose (FDG) i.v. Injection site: Right antecubital fossa HISTORY: 50-year-old man with enlarged right neck mass, which appeared to be a necrotic level 2 lymph node with cytology results suspicious for squamous cell carcinoma. The study is requested for initial staging. Initial treatment strategy. TECHNIQUE: The patient's fasting blood glucose level, measured by glucometer before injection of FDG, was 94 mg/dL. -Gastroview was not given orally. After intravenous administration of FDG, noncontrast CT images were obtained for attenuation correction and for fusion with emission PET images to allow for anatomical localization of PET findings. Emission PET images were then obtained. The study was interpreted on the [employer] workstation. The mean liver SUV (reported for quality systems technician purposes) is 1.9. The total scanned area was skull vertex to the proximal thighs. Images of the head and neck were obtained starting 50 minutes after injection of tracer. Images of the body were obtained starting 59 minutes after injection of tracer. COMPARISON: Outside neck CT 05/22/2020, head and neck diagnostic ultrasound and FNA 06/19/2020 FINDINGS: There is asymmetric fullness of the right [...] and glossotonsillar sulcus activity is also present. Lateral and inferior to the presumed primary, [...] of 7.5 is seen (axial image 84). A small right level 3 lymph node with mild FDG uptake is nonspecific (axial image 101), probably reactive/inflammatory. There is a small left-sided node at the level 2/3 junction, with activity at or just above blood pool (axial image 98 of the head/neck); this is indeterminate and nonspecific, but given the low level uptake, and in the setting of this type of tumor, disease involvement is considered unlikely, and this node is probably reactive/inflammatory. No evidence of metastatic disease below the neck. Moderate uptake in the proximal stomach could be physiologic or secondary to gastritis. Incidentally noted is a standing column of FDG-rich urine within the penis. Additional CT findings: Mild coronary artery disease, but with a dense calcification in the proximal left anterior descending artery. Otherwise minimal atherosclerosis. Calcified granulomas in the bilateral lungs, tona, and mediastinum. Calcified splenic granulomas. Dystrophic calcifications within the minimally enlarged prostate. Fixation hardware in the proximal right femur. Scattered bone islands. IMPRESSION: Right tonsillar hypermetabolic soft tissue fullness, concerning for the site of primary squamous cell carcinoma. Enlarged conglomerate of right neck level 2 lymph nodes are compatible with local john involvement. Dictated by: Diogo Sarabia M.D. The radiology attending physician has personally reviewed this study, and had reviewed and/or edited this written report and agrees with it. Electronically signed by: Jason Wiggins M.D. us Donny Prasad MD IMG PET PROCEDURES Final Resul t documented in this encounter Visit Diagnoses Diagnosis Metastatic squamous cell carcinoma Other malignant neoplasm of unspecified site documented in this encounter Administered Medications Inactive Administered Medications - up to 3 most recent administrations Medication Order MAR Action Action Date Dose Rate Site fludeoxyglucose F-18 (FDG) injection 15 millicurie 15 millicurie, intravenous, Once in imaging, radiopharmaceutical , Starting on Fri06/27/20 at 1053, For 1 dose Given 06/27/2020 10:35 AM CDT 15.7 millicuries Right Antecubital documented in this encounter Orders Medications Ordered That Mynor ht Not Have Been Administered Count Last Ordered Date First Ordered Date fludeoxyglucose F-18 (FDG) i njection 15 millicurie 1 06/27/2020 documented in this encounter Care Teams Banquet Supervisor Relationship Specialty Start Date End Date No, Physician PCP - General 05/30/20 12/08/20 documented as of this encounter
--- OUTSIDE RECORDS SUMMARY | 2024-09-11 03:25 | XMS_ITS | Encounter Summary ---
Author Organization [facility] Address [address] [place] [address] Phone Care Team Providers Care Supervisor Cemetery Workers Name Role Phone No, Physician Primary Care Provider [phone] Reason for Referral * Consultation (Routine) - Closed Specialty Diagnoses / Procedures Referred By Dank ashley Referred To Contact Otolaryngology Diagnoses Neck mass Joseph Shafer MD [address] [place] [address] Phone: tel: fax: [facility] (All Locations) Referral ID Status Reason Start Date Expiration Date V isits Requested Visits Authorized [id number] Closed Specialty Services Required 06/26/2020 07/26/2021 3 3 Question Answer Please select the performing region: [facility] (All Locations) [[id number]] # of visits: 1 Encounter Details Date Type Department Care Team (Late st Contact Info) Description 06/26/2020 Orders Only [facility] Surgery [address] [facility] Advanced Medicine 5th [place] [id number] Joseph Shafer MD [address] [place] [address] Neck mass (Primary Dx) Social History Tobacco Use Types Packs/Day Years Used Date Smoking Tobacco: Former Sex and Gender Information Value Date Recorded Sex Assigned at Not on file 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 Gender Identity Not on file Sexual Orientation Not on file documented as of this encounter Plan of Treatment Scheduled Referrals Name Type Priority Associated Diagnoses Order Schedule Ambulatory referral to ENT Outpatient Referral Routine Neck mass Expected: 07/10/2020 (Approximate), Expires: 06/26/2021 documented as of this encounter Visit Diagnoses Diagnosis Neck mass- Primary Swelling, mass, or lump in head and neck documented in this encounter Care Teams Supervisor Cemetery Workers Relationship Specialty Start Date End Date No, Physician PCP - General 05/30/20 12/08/20 documented as of this encounter
--- OUTSIDE RECORDS SUMMARY | 2024-09-11 03:25 | XMS_ITS | Encounter Summary ---
Author Organization [facility] Address [address] [place] [address] Phone Care Team Providers Care Shoe Treer Name Role Phone No, Physician Primary Care Provider [phone] Reason for Referral * Diagnostic Imaging (Routine) - Closed Specialty Diagnoses / Procedures Referred By Dank t Referred To Contact Diagnoses Mass of right side of neck Procedures US Guided Thyroid Fine Needle Aspiration 1st Lesion Joseph Shafer MD [address] [place] [address] Phone: tel: fax: [address] [phone] Referral ID Status Reason Start Date Expiration Date Visits Re quested Visits Authorized [id number] Closed 06/06/2020 07/06/2021 1 1 Encounter Details Date Type Department Care Team (Late st Contact Info) Description 06/06/2020 Orders Only [facility] Surgery [facility] Advanced Medicine 5th [place] [id number] Joseph Shafer MD [address] [place] [address] Mass of right side of neck (Primary Dx) Social History Tobacco Use Types Packs/Day Years Used Date Smoking Tobacco: Never Assessed Sex and Gender Information Value Date Recorded Sex Assigned at Not on file 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 Successful ultrasound-guided fine needle aspiration of right level 2 neck mass. 2. Please see separate cytology results for final interpretation. Dictated by: Per Camacho M.D. The radiology attending physician has personally reviewed this study, and had reviewed and/or edited this written report and agrees with it. Electronically signed by: Yenifer Byers M.D. Narrative 06/19/2020 4:43 PM CDT EXAMINATION: 1. ??ULTRASOUND SOFT TISSUE HEAD NECK 2. ??ULTRASOUND-GUIDED FINE NEEDLE ASPIRATION BIOPSY HISTORY: ??50-year-old male with 6 weeks of enlarging right-sided neck mass. COMPARISON: ??None 1. ??ULTRASOUND SOFT TISSUE HEAD NECK Ultrasound revealed a right neck level 2, mixed cystic and solid, heterogeneous, 4.9 x 2.7 x 4.2 cm. 2. ??ULTRASOUND-GUIDED FINE NEEDLE ASPIRATION BIOPSY FINDINGS: Revisualized right neck level 2 mixed cystic and solid mass. TECHNIQUE: ??The procedure for ultrasound-guided fine needle aspiration (FNA) was explained to and discussed with the patient. Risks were explained to include, but not be limited to, hemorrhage, infection, injury to adjacent organs, non-diagnostic specimen and adverse reaction to medications administered. The patient voiced understanding and wished to proceed and signed the consent form. The patient's overlying skin was prepped and draped in the usual sterile fashion. ?? FNA: The lesion was located in the right neck level 2 and measured 4.9 cm x 2.7 cm x 4.2 cm. A site was localized for fine needle aspiration. The patient's overlying skin was prepped and draped in the usual sterile fashion. Local anesthesia was achieved via subcutaneous and deep administration with 10 mL of Lidocaine 1%. Under realtime ultrasound guidance, the needle was advanced into the lesion ??and 6 passes were made with 25 gauge needles. The samples were ??handed to the snaker driving horses. The patient's skin was cleaned and dressed. The patient tolerated the entire procedure well without immediate complications. Dr. Yenifer Byers M.D., the attending radiologist, was present from the beginning to the end of the procedure. Dr. Camacho performed the biopsy. Procedure Note Yenifer Byers MD - 06/19/2020 EXAMINATION: 1. ULTRASOUND SOFT TISSUE HEAD NECK 2. ULTRASOUND-GUIDED FINE NEEDLE ASPIRATION BIOPSY HISTORY: 50-year-old male with 6 weeks of enlarging right-sided neck mass. COMPARISON: None 1. ULTRASOUND SOFT TISSUE HEAD NECK Ultrasound revealed a right neck level 2, mixed cystic and solid, heterogeneous, 4.9 x 2.7 x 4.2 cm. 2. ULTRASOUND-GUIDED FINE NEEDLE ASPIRATION BIOPSY FINDINGS: Revisualized right neck level 2 mixed cystic and solid mass. TECHNIQUE: The procedure for ultrasound-guided fine needle aspiration (FNA) was explained to and discussed with the patient. Risks were explained to include, but not be limited to, hemorrhage, infection, injury to adjacent organs, non-diagnostic specimen and adverse reaction to medications administered. The patient voiced understanding and wished to proceed and signed the consent form. The patient's overlying skin was prepped and draped in the usual sterile fashion. FNA: The lesion was located in the right neck level 2 and measured 4.9 cm x 2.7 cm x 4.2 cm. A site was localized for fine needle aspiration. The patient's overlying skin was prepped and draped in the usual sterile fashion. Local anesthesia was achieved via subcutaneous and deep administration with 10 mL of Lidocaine 1%. Under realtime ultrasound guidance, the needle was advanced into the lesion and 6 passes were made with 25 gauge needles. The samples were handed to the snaker driving horses. The patient's skin was cleaned and dressed. The patient tolerated the entire procedure well without immediate complications. Dr. Yenifer Byers M.D., the attending radiologist, was present from the beginning to the end of the procedure. Dr. Camacho performed the biopsy. IMPRESSION: 1. Successful ultrasound-guided fine needle aspiration of right level 2 neck mass. 2. Please see separate cytology results for final interpretation. Dictated by: Per Camacho M.D. The radiology attending physician has personally reviewed this study, and had reviewed and/or edited this written report and agrees with it. Electronically signed by: Yenifer Byers M.D. us Joseph Shafer MD IMG US PROCEDURES Final Result documented in this encounter Visit Diagnoses Diagnosis Mass of right side of neck- Primary Mass of right side of neck documented in this encounter Care Teams Shoe Treer Relationship Specialty Start Date End Date No, Physician PCP - General 05/30/20 12/08/20 documented as of this encounter
--- OUTSIDE RECORDS SUMMARY | 2024-09-11 03:25 | XMS_ITS | Encounter Summary ---
Author Organization [facility] Address [address] [place] [address] Phone Care Team Providers Care Home Coordinator Name Role Phone No, Physician Primary Care Provider [phone] Reason for Visit * Reason Comments New Patient * Consultation (Routine) - Closed Specialty Diagnoses / Procedures Referred By Dank ashley Referred To Contact Surgical Oncology Diagnoses Mass of right side of neck Referral, Self Joseph Shafer MD [address] [place] [address] Phone: tel: fax: Referral ID Status Reason Start Date Expiration Date V isits Requested Visits Authorized [id number] Closed Specialty Services Required 06/07/2020 07/07/2021 99 99 Encounter Details Date Type Department Care Team (Late st Contact Info) Description 06/19/2020 3:40 PM CDT Office Visit [facility] Surgery [address] [place] [address] Advanced Medicine 5th [place] [address] Joseph Shafer MD [address] [id number] Mass of right side of neck Social History Tobacco Use Types Packs/Day Years Used Date Smoking Tobacco: Former Sex and Gender Information Value Date Recorded Sex Assigned at Not on file 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 PATIENT NAME: Marco A Deluna DATE OF : 1970 DATE OF OFFICE VISIT: 06/19/2020 REFERRING MD: Self Referral CHIEF COMPLAINT: Marco A Deluna is a 50 y.o. male with chief complaint of right neck mass. HPI: The patient is a 50 male with a chief complaint of six weeks of enlarging RIGHT- sided neck mass causing difficulty swallowing. He was seen at an OSH where an US was done which showed bilateral cervical lymphadenopathy with a large necrotic appearing submandibular lymph node, concerning for inflammatory versus metastatic process. This was followed up with a CT scan which showed enlarged right level IIA LN. At the end of May he underwent an FNA, but this was nondiagnositic and he is here for further treatment. The patient feels this lymph node has gotten significantly larger in the past week. He endorses difficulty with swallowing, especially meats. He endorses some orthopnea, but states this has been present for years. He reports he has not seen a physician in years. He also denies regular dental visits and states he has had problems with tooth infections in the past. He denies significant sun exposure. He denies radiation to the neck. No family history of thyroid, skin or tonguecancers. He is a current smoker. He denies chewing tobacco. He denies trauma to the neck, fevers, chills and night sweats. He states he has had exposure to asbestos through work. PAST MEDICAL HISTORY: Past Medical History: Diagnosis Date ??? Peptic ulcer PAST SURGICAL HISTORY: Femur repair. MEDICATIONS: None ALLERGIES: No Known Allergies FAMILY HISTORY: History reviewed. No pertinent family history. SOCIAL HISTORY: Smoked on and off x 10 years. ~3 cigs per day. Denies chewing tobacco. Social History Socioeconomic History ??? Marital status: Spouse name: None ??? Number of children: None ??? Years of education: None ??? Highest education level: None Occupational History ??? None Social Needs ??? Financial resource strain: None ??? Food insecurity Worry: None Inability: None ??? Transportation needs Medical: None Non-medical: None Tobacco Use ??? Smoking status: Former Smoker Substance and Sexual Activity ??? Alcohol use: None ??? Drug use: None ??? Sexual activity: None Lifestyle ??? Physical activity Days per week: None Minutes per session: None ??? Stress: None Relationships ??? Social connections Talks on phone: None Gets together: None Attends rastafari service: None Active member of club or organization: None Attends meetings of clubs or organizations: None Relationship status: None ??? Intimate partner violence Fear of current or ex partner: None Emotionally abused: None Physically abused: None Forced sexual activity: None Other Topics Concern ??? None Social History Narrative ??? None REVIEW OF SYSTEMS: GENERAL: Denies fevers, chills or malaise. SKIN: Denies rashes, sores. HEAD: Denies headache, migraine. EYES: Denies vision change, glaucoma. RESPIRATORY: Denies cough, sputum, hemoptysis, TB, pneumonia. CARDIAC: Denies chest pain, palpitations, dyspnea. +orthopnea. GASTROINTESTINAL: Denies heartburn/reflux, nausea, dyspepsia, vomiting, vomiting of blood, change in bowel habits, rectal bleeding or black/tarry stools. +Dysphagia URINARY: Denies polyuria, dysuria, nocturia, infections. VASCULAR: Denies intermittent claudication, leg cramps, thrombophlebitis. Denies DVT, PE. MUSCULOSKELETAL: Denies gout, systemic arthritis. Denies osteoarthritis. NEUROLOGIC: Denies recent fainting, blackouts, seizures, paralysis, tremors, numbness, gait change,stroke. HEMATOLOGIC: Denies easy bruising or bleeding, past transfusion reactions. PSYCH: Denies depression, denies anxiety PHYSICAL EXAMINATION: General: Well-developed, well-nourished in no apparent distress. Eyes: PERRLA, EOM intact. HEENT: NC/AT, sclerae anicteric. No obvious dental caries or tongue masses. Neck: Supple. Notable swelling to the RIGHT neck. Pain limits exam. No abnormalities felt in the left neck. Respiratory: No audible wheezing Cardiovascular: Regular rate and rhythm. Abdomen: Soft, nontender, nondistended, without obvious masses. Extremities: No edema or cyanosis. Musculoskeletal: Normal range of motion. Neurological examination: Alert and oriented x 3, otherwise grossly nonfocal. Skin/Soft Tissue: No appreciable supraclavicular, axillary, or inguinal adenopathy. No left sided cervical adenopathy. No suspicious lesions of the face. LABORATORY: NA RADIOLOGY: [facility] 06/19/20: EXAMINATION: 1. ULTRASOUND SOFT TISSUE HEAD NECK 2. ULTRASOUND-GUIDED FINE NEEDLE ASPIRATION BIOPSY ?? HISTORY: 50-year-old male with 6 weeks of enlarging right-sided neck mass. ?? COMPARISON: None ?? 1. ULTRASOUND SOFT TISSUE HEAD NECK Ultrasound revealed a right neck level 2, mixed cystic and solid, heterogeneous, 4.9 x 2.7 x 4.2 cm. ?? 2. ULTRASOUND-GUIDED FINE NEEDLE ASPIRATION BIOPSY FINDINGS: Revisualized right neck level 2 mixed cystic and solid mass. ?? TECHNIQUE: The procedure for ultrasound-guided fine needle [...] needles. The samples were handed to the hvac field service technician. ?? The patient's skin was cleaned and dressed. The patient tolerated the entire procedure well without immediate complications. ?? Dr. Yenifer Byers M.D., the attending radiologist, was present from the beginning to the end of the procedure. Dr. Camacho performed the biopsy. ? IMPRESSION: 1. Successful ultrasound-guided fine needle aspiration of right level 2 neck mass. 2. Please see separate cytology results for final interpretation. ?? Dictated by: Per Camacho M.D. ?? The radiology attending physician has personally reviewed this study, and had reviewed and/or edited this written report and agrees with it. ?? Electronically signed by: Yenifer Byers M.D. [facility] OS PATHOLOGY: IMPRESSION: The patient is a 50 y.o. male who presents with a enlarged right cervical lymph node. PLAN: I had a long discussion with the patient regarding his workup to date. A fine- needle aspiration biopsy was performed today. The results will help to dictate his ongoing follow-up and treatment. I encouraged him to call my office to discuss the results of the fine-needle aspiration biopsy. I have seen and examined Marco A Fish Regi with the resident physician. We worked together to completethe office note, and I personally reviewed and edited the note. I agree with the evaluation and management plan outlined above. Will MD Soni documented in this encounter Plan of Treatment Not on file documented as of this encounter Visit Diagnoses Diagnosis Mass of right side of neck documented in this encounter Orders Outpatient Referral Count Last Ordered Date Fir st Ordered Date AMB REFERRAL TO SURGICAL ONCOLOGY 1 020 documented in this encounter Care Teams Home Coordinator Relationship Specialty Start Date End Date No, Physician PCP - General 05/30/20 12/08/20 documented as of this encounter
--- OUTSIDE RECORDS SUMMARY | 2024-09-11 03:25 | XMS_ITS | Encounter Summary ---
Author Organization [facility] Address [address] [place] [address] Phone Care Team Providers Care Supervisor Leaf Spring Repair Name Role Phone No, Physician Primary Care Provider [phone] Encounter Details Date Type Department Care Team (Late st Contact Info) Description 06/06/[address] 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
--- OUTSIDE RECORDS SUMMARY | 2024-09-11 03:25 | XMS_ITS | Encounter Summary ---
Author Organization [facility] Address [address] [place] [address] Phone Care Team Providers Care Quantitative Strategy Analyst Name Role Phone No, Physician Primary Care Provider [phone] Encounter Details Date Type Department Care Team (Late st Contact Info) Description 06/02/2020 Telephone 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 documented in this encounter Plan of Treatment Not on file documented as of this encounter Visit Diagnoses Not on filedocumented in this encounter Care Teams Quantitative Strategy Analyst Relationship Specialty Start Date End Date No, Physician PCP - General 05/30/20 12/08/20 documented as of this encounter
--- OUTSIDE RECORDS SUMMARY | 2024-09-11 03:25 | XMS_ITS | Encounter Summary ---
Author Organization [facility] Address [address] [place] [address] Care Team Providers Care Therapy Tech Name Role Phone No, Physician Primary Care Provider Encounter Details Date Type Department Care Team (Latest Contact Info) Description 06/19/2020 4:55 PM CDT - 06/19/2020 11:59 PM CDT Hospital Encounter [facility] [address] [place] [id number] Diagnosis unknown Discharge Disposition: Discharge to home or self care Social History Tobacco Use Types Packs/Day Years Used Date Smoking Tobacco: Former Sex and Gender Information Value Date Recorded Sex Assigned at Not on file 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 Gender Identity Not on file Sexual Orientation Not on file documented as of this encounter Discharge Disposition Disposition Code Departure Means Destination Discharge to home or self care documented in this encounter Plan of Treatment Not on file documented as of this encounter Procedures Procedure Name Priority Date/Time Associated Diagnosis Comments NEURO CT MR OUTSIDE CONSULT Routine 06/19/2020 4:55 PM CDT Diagnosis unknown documented in this encounter Results * Neuro CT MR Outside Consult (06/19/2020 4:55 PM CDT) Anatomical Region Laterality Modality N/A Computed Tomogra phy 06/19/2020 5:56 PM CDT Impressions 06/19/2020 5:56 PM CDT 1. ??Cystic and solid mass in the right neck corresponding to the palpable abnormality is suspicious for squamous cell carcinoma although an infected lymph node due to an infection such as a mycobacterial infection is also a consideration. ??There is a suggestion of mucosal thickening along the right base of tongue and right lateral oropharyngeal wall which may represent a primary head and neck cancer site. 2. ??Nodule posterior to the right lobe of the thyroid may either be an enlarged parathyroid gland or may be an exophytic component of the right thyroid lobe. The findings, conclusions and recommendations within this report do not replace the initial findings, conclusions ??and recommendations made at the facility where the study was performed based upon the imaging and clinical condition at that time. ??Comparison with the prior report and clinical history is necessary. ??The provided images may or may not represent the [place] source data set and thus may contain changes that may lower the accuracy of this second-opinion interpretation. Electronically signed by: Suzan Vieira M.D. Narrative 06/19/2020 5:56 PM CDT EXAMINATION: RADIOLOGY CONSULTATION ON OUTSIDE IMAGING STUDY STUDY INITIALLY PERFORMED: 05/22/2020 at [facility]. TYPE OF STUDY: Multiple CT images of the neck with intravenous contrast are provided at the time of this interpretation. CONTRAST ROUTE: Contrast was administered via the intravenous route. The protocol was adequate to address the clinical question. The outside final report was available at the time of this second opinion interpretation. TYPE OF CONSULTATION: Consult on outside imaging study with images submitted through [facility] DATE OF CONSULTATION: 06/19/2020 5:48 PM HISTORY: Enlarging right-sided neck mass COMPARISON: None available. FINDINGS: There is a right-sided mixed cystic and solid mass anterior to the right internal jugular vein and right sternocleidomastoid muscle in the suprahyoid neck measuring 2.7 cm AP x 2.8 cm wide x 3.3 cm craniocaudal. ??Additional subcentimeter lymph nodes are noted in both sides of the neck. ??There is lobular soft tissue along the base of tongue projecting into the vallecula which has a typical appearance on the left side for lingual tonsil. ??The right base of tongue extending onto the right lateral oropharyngeal wall appears slightly thickened compared to the left but does not have abnormal contrast enhancement or evidence of necrosis. ??There is no evidence of a mass invading the floor mouth. ??The larynx appears appropriate. The thyroid gland is normal in size and attenuation. ??It is either and enlarged parathyroid gland behind the right lobe of the thyroid or an exophytic finger of thyroid tissue which measures 1.1 x 0.6 cm on series 3 image 61. A few calcified granulomas are noted in the upper mediastinum. ??There is mucosal thickening involving the right maxillary sinus. ??Included portions of the brain appear appropriate. ??There are degenerative changes throughout the cervical spine without evidence of a lytic or sclerotic bone lesion. ??There is a calcified granuloma in the right upper lobe. ??The lungs are otherwise clear. Procedure Note Suzan Vieira MD - 06/19/2020 EXAMINATION: RADIOLOGY CONSULTATION ON OUTSIDE IMAGING STUDY STUDY INITIALLY PERFORMED: 05/22/2020 at [facility]. TYPE OF STUDY: Multiple CT images of the neck with intravenous contrast are provided at the time of this interpretation. CONTRAST ROUTE: Contrast was administered via the intravenous route. The protocol was adequate to address the clinical question. The outside final report was available at the time of this second opinion interpretation. TYPE OF CONSULTATION: Consult on outside imaging study with images submitted through [facility] DATE OF CONSULTATION: 06/19/2020 5:48 PM HISTORY: Enlarging right-sided neck mass COMPARISON: None available. FINDINGS: There is a right-sided mixed cystic and solid mass anterior to the right internal jugular vein and right sternocleidomastoid muscle in the suprahyoid neck measuring 2.7 cm AP x 2.8 cm wide x 3.3 cm craniocaudal. Additional subcentimeter lymph nodes are noted in both sides of the neck. There is lobular soft tissue along the base of tongue projecting into the vallecula which has a typical appearance on the left side for lingual tonsil. The right base of tongue extending onto the right lateral oropharyngeal wall appears slightly thickened compared to the left but does not have abnormal contrast enhancement or evidence of necrosis. There is no evidence of a mass invading the floor mouth. The larynx appears appropriate. The thyroid gland is normal in size and attenuation. It is either and enlarged parathyroid gland behind the right lobe of the thyroid or an exophytic finger of thyroid tissue which measures 1.1 x 0.6 cm on series 3 image 61. A few calcified granulomas are noted in the upper mediastinum. There is mucosal thickening involving the right maxillary sinus. Included portions of the brain appear appropriate. There are degenerative changes throughout the cervical spine without evidence of a lytic or sclerotic bone lesion. There is a calcified granuloma in the right upper lobe. The lungs are otherwise clear. IMPRESSION: 1. Cystic and solid mass in the right neck corresponding to the palpable abnormality is suspicious for squamous cell carcinoma although an infected lymph node due to an infection such as a mycobacterial infection is also a consideration. There is a suggestion of mucosal thickening along the right base of tongue and right lateral oropharyngeal wall which may represent a primary head and neck cancer site. 2. Nodule posterior to the right lobe of the thyroid may either be an enlarged parathyroid gland or may be an exophytic component of the right thyroid lobe. The findings, conclusions and recommendations within this report do not replace the initial findings, conclusions and recommendations made at the facility where the study was performed based upon the imaging and clinical condition at that time. Comparison with the prior report and clinical history is necessary. The provided images may or may not represent the [place] source data set and thus may contain changes that may lower the accuracy of this second-opinion interpretation. Electronically signed by: Suzan Vieira M.D. Joseph Shafer MD IMG CT PROCEDURES Final Result documented in this encounter Visit Diagnoses Diagnosis Diagnosis unknown documented in this encounter Care Teams Therapy Tech Relationship Specialty Start Date End Date No, Physician PCP - General 05/30/20 12/08/20 documented as of this encounter
--- OUTSIDE RECORDS SUMMARY | 2024-09-11 03:25 | XMS_ITS | Encounter Summary ---
Author Organization [facility] Address [address] [place] [address] Phone Care Team Providers Care Cnc Cutting Operator Name Role Phone No, Physician Primary Care Provider [phone] Reason for Referral * Diagnostic Imaging (Routine) - Closed Specialty Diagnoses / Procedures Referred By Contac t Referred To Contact Radiology Diagnoses Metastatic squamous cell carcinoma Procedures PET/CT FDG Skull to Thigh Donny Prasad MD [address] [place] [address] Phone: tel: fax: [address] [address] Referral ID Status Reason Start Date Expiration Date Visits Re quested Visits Authorized [id number] Closed 06/23/2020 08/07/2020 2 2 Encounter Details Date Type Department Care Team (Late st Contact Info) Description 06/23/2020 Orders Only [facility] - [facility] ENT [address] [facility] 11th [place] [address] [place] [address] Donny Prasad MD [address] [place] [address] Metastatic squamous cell carcinoma (CMS/HCC) (Primary Dx) Social History Tobacco Use Types Packs/Day Years Used Date Smoking Tobacco: Former Sex and Gender Information Value Date Recorded Sex Assigned at Not on file 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 ??The study was interpreted on the [employer] workstation. ??The mean liver SUV (reported for [...] FDG-PET/CT IMAGING DATE OF STUDY: 06/27/2020 SCANNER: P4T RADIOPHARMACEUTICAL: 15.7 mCi F-18 Fluorodeoxyglucose (FDG) i.v. [...] obtained. The study was interpreted on the [employer] workstation. The mean liver SUV (reported for [...] it. Electronically signed by: Jason Wiggins M.D. Donny Prasad MD IM PET PROCEDURES Final Resul t documented in this encounter Visit Diagnoses Diagnosis Metastatic squamous cell carcinoma- Primary Other malignant neoplasm of unspecified site Metastatic squamous cell carcinoma Other malignant neoplasm of unspecified site documented in this encounter Care Teams Cnc Cutting Operator Relationship Specialty Start Date End Date No, Physician PCP - General 05/30/20 12/08/20 documented as of this encounter
--- OUTSIDE RECORDS SUMMARY | 2024-09-11 03:25 | XMS_ITS | Encounter Summary ---
Author Organization [facility] Healthcare Address [address] [place] [address] Care Team Providers Care Streets And Buildings Decorator Name Role Phone No, Physician Primary Care Provider [phone] Reason for Referral * Diagnostic Imaging (Routine) - Closed Specialty Diagnoses / Procedures Referred By Contac t Referred To Contact Diagnoses Mass of right side of neck Procedures US Guided Thyroid Fine Needle Aspiration 1st Lesion Joseph Shafer MD [address] [place] [address] Phone: tel: fax: [address] [phone] Referral ID Status Reason Start Date Expiration Date Visits Re quested Visits Authorized [id number] Closed 06/06/2020 07/06/2021 1 1 Reason for Visit * Diagnostic Imaging (Routine) - Closed Specialty Diagnoses / Procedures Referred By Contac t Referred To Contact Diagnoses Mass of right side of neck Procedures US Guided Thyroid Fine Needle Aspiration 1st Lesion Joseph Shafer MD [address] [place] [address] Phone: tel: fax: [address] [phone] Referral ID Status Reason Start Date Expiration Date Visits Re quested Visits Authorized [id number] Closed 06/06/2020 07/06/2021 1 1 Encounter Details Date Type Department Care Team (Latest Contact Info) Description 06/19/2020 1:24 PM CDT - 06/19/2020 4:54 PM CDT Hospital Encounter [facility] [address] [place] [address] Joseph Shafer MD [address] [facility] [place] [address] Mass of right side of neck Discharge Disposition: Discharge to home or self care Social History Tobacco Use Types Packs/Day Years Used Date Smoking Tobacco: Former Sex and Gender Information Value Date Recorded Sex Assigned at Not on file Legal Sex 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 The tissue may be taken from anywhere in your body. Examples include an organ such as your liver or lung, a muscle, or skin. The tissue can be sent to the lab and tested for cancer or infection. If you have had an organ transplant, tissue from the organ can be tested for organ rejection. How to prepare for a FNAB: ?? Your healthcare provider will talk to you about how to prepare for your procedure. You may need to stop taking blood thinner medicine or aspirin 3 days before your procedure. The provider may tellyou not to eat or drink anything 8 hours before your procedure. The provider will tell you what medicines to take or not take on the day of your procedure. ?? You may be given contrast liquid during your procedure to help the tissue show up better in the pictures. Tell the healthcare provider if you have ever had an allergic reaction to contrast liquid.An MRI may also be used during your procedure. Do not enter the procedure room with anything metal.Metal can cause serious injury. Tell the healthcare provider if you have any metal in or on your body. Also tell him if you are or think you are . Special wood can be used during the procedure to keep your baby safe. ?? Do not put on lotions or powders on the day of your procedure. Do not put on deodorant if your biopsy will be taken near your armpit. These products may cause particles to appear on your x-ray. Wear loose-fitting clothing to your procedure. Arrange for someone to drive you home and stay with youafter your procedure. What will happen during a FNAB: ?? You may be given IV sedation to help you relax during your procedure. You may also be given local anesthesia to numb the area. With local anesthesia, you may still feel pressure or pushing during your procedure, but you should not feel any pain. ?? Your healthcare provider may make a small incision. He or she will insert a needle through your skin and into the tissue. The provider may use x-ray, ultrasound, or MRI pictures to help guide the needle to the correct place. When the needle reaches the tissue, samples will be taken. ?? The provider will remove the needle and apply pressure to the area. You will not need stitches. A small bandage will be placed over your incision. Your healthcare provider may also wrap a tight-fitting bandage across the area. This may prevent bleeding, swelling, and pain. What will happen after a FNAB: Healthcare providers will monitor you until you are awake. You may be sore or have bruising or swelling for a few days. Do not breastfeed for 24 to 48 hours if you received contrast liquid. The contrast liquid may harm your baby. You may go home after your procedure or you may need to spend a night in the hospital. Risks of a FNAB: You may bleed more than expected or get an infection. A pocket of blood or fluid may form under your skin. You may need surgery to drain or remove it. The biopsy needle may damage other organs or tissues. Seek care immediately if: ?? Blood soaks through your bandage. ?? Your bruise suddenly gets larger and feels hard. ?? You have severe pain where the biopsy was taken. Contact your healthcare provider if: ?? You have a fever or chills. ?? Your biopsy site is red, swollen, or draining pus. ?? You have nausea or are vomiting. ?? Your skin is itchy, swollen, or you have a rash. ?? Your pain does not get better after you take pain medicine. ?? You have questions or concerns about your condition or care. Medicines: You may need any of the following: ?? NSAIDs , such as ibuprofen, help decrease swelling, pain, and fever. This medicine is available with or without a doctor's order. NSAIDs can cause stomach bleeding or kidney problems in certain people. If you take blood thinner medicine, always ask your healthcare provider if NSAIDs are safe foryou. Always read the medicine label and follow directions. ?? Acetaminophen decreases pain and fever. It is available without a doctor's order. Ask how much to take and how often to take it. Follow directions. Read the labels of all other medicines you are using to see if they also contain acetaminophen, or ask your doctor or pharmacist. Acetaminophen can cause liver damage if not taken correctly. Do not use more than 4 grams (4,000 milligrams) total of acetaminophen in one day. ?? Prescription pain medicine may be given. Ask your healthcare provider how to take this medicine safely. Some prescription pain medicines contain acetaminophen. Do not take other medicines that contain acetaminophen without talking to your healthcare provider. Too much acetaminophen may cause liver damage. Prescription pain medicine may cause constipation. Ask your healthcare provider how to prevent or treat constipation. ?? Take your medicine as directed. Contact your healthcare provider if you think your medicine is not helping or if you have side effects. Tell him or her if you are allergic to any medicine. Keep a list of the medicines, vitamins, and herbs you take. Include the amounts, and when and why you take them. Bring the list or the pill bottles to follow-up visits. Carry your medicine list with you in case of an emergency. Care for your biopsy site as directed: If you have a tight-fitting bandage, you can remove it in 24to 48 hours, or as directed. Ask your healthcare provider when your biopsy site can get wet. Carefully wash around the site with soap and water. It is okay to let soap and water gently run over your biopsy site. Do not scrub the site. Dry the area and put on new, clean bandages as directed. Change your bandages when they get wet or dirty. Check your biopsy site every day for signs of infection such as redness, swelling, or pus. Do not put powders or lotions on your biopsy site. Self-care: ?? Apply ice on your biopsy site for 15 to 20 minutes every hour or as directed. Use an ice pack, or put crushed ice in a plastic bag. Cover it with a towel before you apply it to your skin. Ice helps prevent tissue damage and decreases swelling and pain. ?? Rest as directed. Do not lift anything heavier than 5 pounds, play sports, or exercise. These activities may cause bleeding. Short walks around the house are okay. Ask your healthcare provider when you can return to your normal activities. ?? Drink plenty of liquids as directed. Liquids help flush contrast liquid from your body. Ask how much liquid to drink each day and which liquids are best for you. Follow up with your healthcare provider as directed: Write down your questions so you remember to ask them during your visits. ?? 2017 [facility] Information is for End User's use only and may not be sold, redistributed or otherwise used for commercial purposes. All illustrations and images included in CareNotes?? are the copyrighted property of [employer]. or [employer]. The above information is an medicaid business analyst only. It is not intended as medical advice for individual conditions or treatments. Talk to your doctor, nurse or pharmacist before following any medical regimen to see if it is safe and effective for you. documented in this encounter Discharge Disposition Disposition Code Departure Means Destination Discharge to home or self care documented in this encounter Miscellaneous Notes * Post-Procedure Note - Yenifer Byers MD - 06/19/2020 1:45 PM CDT Radiology Brief Post Procedure Note Attending: Zeeshan Results Engineer: Kashif Sedation/Anesthesia: Local Pre-Op/Pre-Procedure Diagnosis: Right neck mass Post-Op/Post-Procedure Diagnosis: Same. Procedure Performed: US guided FNA of right neck mass. Procedure Findings: Successful FNA. Complications: None Estimated Blood Loss: < 30 ml Specimens: 6 FNA samples. 3.5mL of redish colored fluid was aspirated. Condition: Stable Full report to follow. documented in this encounter Plan of Treatment Not on file documented as of this encounter Procedures Procedure Name Priority Date/Time Associated Diagnosis Comments CYTOLOGY Routine 06/19/2020 2:58 PM CDT Mass of right side of neck US GUIDED THYROID FINE NEEDLE ASPIRATION 1ST LESION Schedule Routine, Read Routine (OP Routine) 06/19/2020 2:44 PM CDT Mass of right side of neck US SOFT TISSUE HEAD NECK Schedule Routine, Read Routine (OP Routine) 06/19/2020 2:44 PM CDT Mass of right side of neck documented in this encounter Results * Cytology (06/19/2020 2:58 PM CDT) Fluid (Neck (Cytology)) 06/19/2020 2:19 PM CDT Narrative PATHOLOGY [facility] - 06/22/2020 12:11 PM CDT EPIC results best viewed via link to PDF [facility] [place] [address] CYTOPATHOLOGY REPORT FINAL Patient Name: ?? PATY DELUNA Gender: ??M : ??1970 (Age: 50) Address: ??[address] [place] [address] Hospital #: ??[id number] Taken:06/19/2020 Received:06/19/2020 Reported: 06/22/2020 Patient Type: [facility] Ancillary ?? Service: Radiology Location: [facility] Physician(s): ??MD Joseph Mckinney M.D. FINAL DIAGNOSIS A. ??Neck mass, right, level 2, ultrasound guided fine needle aspiration: ? - Suspicious for squamous cell carcinoma (see comment) - Lymphoid component present Comments Direct smears and the cell block demonstrate abundant keratinaceous debris most of which is anucleated or with bland nuclear features. ?? Admixed lymphocytes are present both singly and as small discohesive fragments. ??Extremely rare small clusters of atypical epithelioid cells with scant cytoplasm but enlarged and angulated nuclei are identified, which are suspicious for fragments of squamous cell carcinoma. ??It is difficult to say with certainty if these fragments represent nonkeratinizing squamous cell carcinoma or lymphoid tangles. ??The cell block shows only anucleated keratinous debris and nucleated squamous cells with only mild atypia. ??A panel of immunohistochemical stains was performed (single antibody procedures with appropriate controls) to characterize the atypical cells. ??p40 is positive; p16 demonstrates nonspecific background staining and is considered indeterminate. ??Overall these findings are suspicious for metastatic squamous cell carcinoma. [facility]/06/20/2020 14:40 By this signature, I attest that the above diagnosis is based upon my personal examination of the slides(and/or other material indicated in the diagnosis). Clive Sousa, DO Report Electronically Reviewed and Signed Out By ??Clive Sousa DO 06/22/2020 12:11:38 Radha Marie, BS, CT(ASC)[facility] Gross Description A. ??Neck mass, right, level 2, ultrasound guided fine needle aspiration: ??3 Pap stained smear(s) and 3 Diff-Quik stained smear(s). ??1 cell block prepared from needle rinse tube. ??Aspirated by Clinician. ??(kk) Clinical Diagnosis and History The patient is a 50 year old man with a right level 2 neck mass. REPORT IMAGES AND SCANNED DOCUMENTS, IF INCLUDED, ONLY VIEWABLE IN PDF VERSION OF REPORT The performance characteristics of some immunohistochemical stains, in-situ hybridization and fluorescence in-situ hybridization tests and immunophenotyping by flow cytometry cited in this report (if any) were determined by the Surgical Pathology Department at [facility] as part of an ongoing quality rn program and in compliance with federally mandated [...] by the Surgical Pathology Department of [facility]. ??It has not been cleared or approved by the U. S. Food and Drug Administration. Joseph Shafer MD LAB CYTOLOGY ORDERABLES Final Result PATHOLOGY [facility] 3rd Floor [place], [place] [phone] * US Head Neck Soft Tissue (06/19/2020 2:44 PM CDT) Anatomical Region Laterality Modality Head and Neck N/A Ultrasound 06/19/2020 4:35 PM CDT Impressions [...] needles. The samples were ??handed to the dial polisher. The patient's skin was cleaned and dressed. [...] needles. The samples were handed to the dial polisher. The patient's skin was cleaned and dressed. [...] Shafer MD IMG US PROCEDURES Final Result * US Guided Thyroid Fine Needle Aspiration [...] needles. The samples were ??handed to the dial polisher. The patient's skin was cleaned and dressed. [...] needles. The samples were handed to the dial polisher. The patient's skin was cleaned and dressed. [...] it. Electronically signed by: Yenifer Byers M.D. Joseph Shafer MD IMG US PROCEDURES Final Result documented in this encounter Visit Diagnoses Diagnosis Mass of right side of neck documented in this encounter Administered Medications Inactive Administered Medications - up to 3 most recent administrations Medication Order MAR Action Action Date Dose Rate Site lidocaine (XYLOCAINE) 10 mg/mL (1 %) injection Code/trauma/sedation medication, Starting on 06/19/20 at 1424, Intra-Procedure (IR), Indications: Administration of Local AnesthesiaIndications:Administration of Local Anesthesia Given 06/19/2020 2:34 PM CDT 4 mL Given 06/19/2020 2:24 PM CDT 10 mL documented in this encounter Care Teams Streets And Buildings Decorator Relationship Specialty Start Date End Date No, Physician PCP - General 05/30/20 12/08/20 documented as of this encounter
== END 2024-09-04 04:55 | disposition home or self-care (01) ==
PROVIDERS: Emergency Provider Emergency Medicine
DX: R07.89 Other chest pain (principal); F12.90 Cannabis use, unspecified, uncomplicated
CPT/HCPCS: 36415; 71045; 71275; 74174; 80053; 83690; 83880; 84484; 85025; 93005; 96374; 96375; 99284; A9270; J1171; J2270; Q9967

== ENCOUNTER 2024-10-02 02:08 | Emergency (ER) | payer MEDICARE, MEDICAID, SELFPAY ==
--- NOTE | ~2024-10-02 | XR_ITS ---
EXAMINATION: XR chest 2V DATE: 10/02/2024 03:54 INDICATION: Cough. TECHNIQUE: Frontal and lateral views of the chest were obtained. COMPARISON: Chest single view 09/04/2024, chest CT 09/04/2024 FINDINGS: Calcified bilateral pulmonary nodules and calcified hilar lymph nodes are consistent with o ld granulomatous disease. No pleural effusion or pneumothorax. The heart size is normal. There are eaton rgical clips in right neck. IMPRESSION: 1. No acute cardiopulmonary disease. Reviewed, dictated and finalized at location A. ER SODA WORKER
--- OUTSIDE RECORDS SUMMARY | 2024-10-02 02:10 | XMS_ITS | Encounter Summary ---
Author Organization [facility] Healthcare Address [address] [place] [address] Care Team Providers Care Nut Grinder Name Role Phone Unknown, Notinfile Primary Care Provider Unavail able Unknown, Notinfile Primary Care Provider Unavail able No, Physician Unavailable No, Physician Primary Care Provider [phone] Encounter Details Date Type Department Care Team (Latest Contact Info) Description 12/18/2020 Ophth Exam Ophthalmology Ofelia Garcia MD [address] [facility] [address] [place] [address] Social History Tobacco Use Types Packs/Day Years Used Date Smoking Tobacco: Every Day Smokeless Tobacco: Never Alcohol Use Standard Drinks/Week Comments Yes 0 (1 standard drink = 0.6 oz pur e alcohol) Sex and Gender Information Value Date Recorded Sex Assigned at Not on file 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
--- OUTSIDE RECORDS SUMMARY | 2024-10-02 02:10 | XMS_ITS | Encounter Summary ---
Author Organization [facility] Address [address] [place] [address] Phone Care Team Providers Care Ekg/Ecg Technician Name Role Phone Unknown, Notinfile Primary Care Provider Unavail able Unknown, Notinfile Primary Care Provider Unavail able No, Physician Unavailable No, Physician Primary Care Provider [phone] Encounter Details Date Type Department Care Team (Late st Contact Info) Description 12/09/2020 Ophth Exam [facility] Ophthalmology [address] [place] [address] 1st [place] [id number] Bri Tello MD [address] [place], [place] [id number] Social History Tobacco Use Types Packs/Day Years Used Date Smoking Tobacco: Never Assessed Alcohol Use Standard Drinks/Week Comments Yes 0 (1 standard drink = 0.6 oz pur e alcohol) Sex and Gender Information Value Date Recorded Sex Assigned at Not on file 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
--- OUTSIDE RECORDS SUMMARY | 2024-10-02 02:10 | XMS_ITS ---
Author Organization [facility] Address [address] [place] [address] Care Team Providers Care Public Health Professor Name Role Phone No, Physician Unavailable No, Physician Primary Care Provider [phone] Active Problems Problem Noted Date Diagnosed Date Insomnia 11/15/2022 Chronic post-traumatic headache, not intractable 11/15/2022 Traumatic brain injury with loss of consciousnes s ([facility]) 08/05/2021 Assessment & Plan (08/05/2021 10:00 AM TEACHER COUNSELOR): Suspect at least moderate severity, although unclear. Persistent cognitive, visual, and balance impairments. Persistent headache, but relatively mild. Has emotional dysregulation but would prefer to avoid pharmacologic treatment at this time. ?? Offered but will defer MRI at this time given clinical stability/improvement ?? Referral to PT at [facility] for post-TBI subsymptom threshold aerobic exercise and [...] healing 02/22/2021 Vitreous hemorrhage of left eye ([facility]) 2020 Left retinal detachment 01/10/2021 Assessment & [...] (12/09/2020): Added automatically from request for surgery [id number] Open displaced fracture of body of right calcane us 12/09/2020 Overview (12/09/2020): Added automatically from request for surgery [id number] Laceration of left forearm 12/09/2020 Overview (12/09/2020): Added automatically from request for surgery [id number] 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 Past Plans No past plan information found. Radiation Treatments * No radiation treatments are documented for this patient in [facility]. Treatments may have been administered in another system. Lifetime Dose Tracking * Chemical Lifetime Dose Automatic Entry Manual Entr y Fluoro Time 8.628 minutes 8.628 minutes 0 minutes Air kerma at the reference point (Ka,r) 15.39 mGy 1 5.39 mGy 0 mGy DLP 5,382 mGycm 5,382 mGycm 0 mGycm
--- OUTSIDE RECORDS SUMMARY | 2024-10-02 02:10 | XMS_ITS | Clinical Summary ---
Author Organization [facility] Address [address] [place] [address]. [place], [place] [id number] [place] [id number] Care Team Providers Care Driver Merchandiser Name Role Phone None, Provider MD Primary [...] season) 2024 Influenza Adult (#1) 2024 Meningococcal B Vaccine Aged Out No l onger eligible based on patient's age to complete this topic Meningococcal Vaccine Aged Out No scott giovana [...] patient's age to complete this topic Insurance [facility] Care Teams Driver Merchandiser Relationship Specialty Start Date End Date None, Provider, PCP - General 03/28/20
--- OUTSIDE RECORDS SUMMARY | 2024-10-02 02:10 | XMS_ITS | Encounter Summary ---
Author Organization [facility] Address [address] [facility] [address] [place] [address] Phone Care Team Providers Care X Ray Nurse Name Role Phone Unknown, Notinfile Primary Care Provider Unavail able Unknown, Notinfile Primary Care Provider Unavail able No, Physician Unavailable No, Physician Primary Care Provider [phone] Encounter Details Date Type Department Care Team (Late st Contact Info) Description 12/11/2020 Ophth Exam [facility] Ophthalmology [address] [place] [address] 1st [place] [id number] Kirill Sanchez MD [address] [place], [place] [id number] Social History Tobacco Use Types Packs/Day Years Used Date Smoking Tobacco: Every Day Smokeless Tobacco: Never Alcohol Use Standard Drinks/Week Comments Yes 0 (1 standard drink = 0.6 oz pur e alcohol) Sex and Gender Information Value Date Recorded Sex Assigned at Not on file 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
--- OUTSIDE RECORDS SUMMARY | 2024-10-02 02:10 | XMS_ITS | Encounter Summary ---
Author Organization [facility] Healthcare Address [address] [place] [address] Care Team Providers Care Cnc Mill Set Up Operator Name Role Phone Unknown, Notinfile Primary Care Provider Unavail able Unknown, Notinfile Primary Care Provider Unavail able No, Physician Unavailable No, Physician Primary Care Provider [phone] Encounter Details Date Type Department Care Team (Latest Contact Info) Description 12/14/2020 Ophth Exam Ophthalmology Ofelia Garcia MD [address] [facility] [address] [place] [address] Social History Tobacco Use Types Packs/Day Years Used Date Smoking Tobacco: Every Day Smokeless Tobacco: Never Alcohol Use Standard Drinks/Week Comments Yes 0 (1 standard drink = 0.6 oz pur e alcohol) Sex and Gender Information Value Date Recorded Sex Assigned at Not on file 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
--- OUTSIDE RECORDS SUMMARY | 2024-10-02 02:10 | XMS_ITS | Referral Summary ---
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 Persistent cognitive, visual, and balance impairments. Persistent headache, but relatively mild. Has emotional dysregulation but would prefer to avoid pharmacologic treatment at this time. ?? Offered but will defer MRI at this time given clinical stability/improvement ?? 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, [...] (07/13/2020): Added automatically from request for surgery [id number] Mass of right side of neck 06/27/2020 [...] on file Legal Sex Male 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 Gender Identity Not on file Sexual [...] on file Medical Devices Implanted Type Area Medical Receptionist Biller Device Identifier Shelf Expiration Date Model / Serial / Lot Synthes 294.55 Schanz 5mm 170mm 50mm Blunt Trocar Point Xlong Screw External - [id number] Implanted:Qty : 2 on 12/10/2020 by Sachin Odonnell MD at [facility] Calcaneus Synthes I 294.55 / / Su[employer]hew[employer]Richco /Ortho [id number] Evos 3.5mm 80mm Self Tap Cortex Screw Bone Sterile - [id number] Implanted:Qty : 1 on 12/12/2020 by No Thomas MD at [facility] Left: Calcaneus Suarez [employer] Nephew/Richco/O rtho [id number] / / Su[employer]hew[employer]Richco /Ortho [id number] Evos 3.5mm 70mm Self Tap Cortex Screw Bone Sterile - [id number] Implanted:Qty : 2 on 12/12/2020 by No Thomas MD at [facility] Left: Calcaneus Suarez [employer] Nephew/Richco/O rtho [id number] / / Su[employer]hew[employer]Richco /Ortho [id number] Evos 3.5mm 50mm Self Tap Cortex Screw Bone Sterile - [id number] Implanted:Qty : 1 on 12/12/2020 by No Thomas MD at [facility] Left: Calcaneus Suarez [employer] Nephew/Richco/O rtho [id number] / / [employer]Richco /Ortho [id number] Evos 3.5mm 55mm Self Tap Cortex Screw Bone Sterile - [id number] Implanted:Qty : 1 on 12/12/2020 by No Thomas MD at [facility] Left: Calcaneus Suarez [employer] Nephew/Richco/O rtho [id number] / / Su[employer]hew/Richco /Ortho [id number] Evos 3.5mm 40mm Self Tap Cortex Screw Bone Sterile - [id number] Implanted:Qty : 1 on 12/12/2020 by No Thomas MD at [facility] Left: Calcaneus Suarez [employer]hew/Richco/O rtho [id number] / / Synthes 212.134 3.5mm 2.9mm 44mm Self Tap Lock Stardrive Conical Head T15 Full - [id number] Implanted:Qty : 1 on 12/19/2020 by No Thomas MD at [facility] Right: Tibia Synthes I 212.134 / / Synthes 212.118 3.5mm 2.9mm 42mm Self Tap Lock Stardrive Conical Head Full Thread - [id number] Implanted:Qty : 1 on 12/19/2020 by No Thomas MD at [facility] Right: Tibia Synthes I 212.118 / / Synthes 212.117 3.5mm 2.9mm 40mm Self Tap Lock Stardrive Conical Head T15 Full - [id number] Implanted:Qty : 2 on 12/19/2020 by No Thomas MD at [facility] Right: Tibia Synthes I 212.117 / / Synthes 204.830 3.5mm 6mm 30mm 2.5mm Self Tap Small Hexagonal Socket Low Profile - [id number] Implanted:Qty : 3 on 12/19/2020 by No Thomas MD at [facility] Right: Tibia Synthes I 204.830 / / Synthes 204.838 3.5mm 6mm 38mm 2.5mm Self Tap Small Hexagonal Socket Low Profile - [id number] Implanted:Qty : 1 on 12/19/2020 by No Thomas MD at [facility] Right: Tibia Synthes I 204.838 / / Synthes 204.832 3.5mm 6mm 32mm 2.5mm Self Tap Small Hexagonal Socket Low Profile - [id number] Implanted:Qty : 2 on 12/19/2020 by No Thomas MD at [facility] Right: Tibia Synthes I 204.832 / / Synthes 204.840 3.5mm 6mm 40mm 2.5mm Self Tap Small Hexagonal Socket Low Profile - [id number] Implanted:Qty : 1 on 12/19/2020 by No Thomas MD at [facility] Right: Tibia Synthes I 204.840 / / Synthes 212.119 3.5mm 2.9mm 45mm Self Tap Lock Stardrive Conical Head T15 Full - [id number] Implanted:Qty : 1 on 12/19/2020 by No Thomas MD at [facility] Right: Tibia Synthes I 212.119 / / Synthes 241.450 Lcp Combi 210mm 15 Hole Low Profile Limit Contact Taper Tip - [id number] Implanted:Qty : 1 on 12/19/2020 by No Thomas MD at [facility] Right: Tibia Synthes I 241.450 / / Abyrx Os-Mon-1001 Wax Bone Montage Sterile - [id number] Implanted:Qty : 1 on 12/21/2020 by No Thomas MD at [facility] Right: Ankle Abyrx [id number] 10/29/2022 OS-MON-1 00 Abyrx Os-Mon-1001 Wax Bone Montage Sterile - [id number] Implanted:Qty : 1 on 12/21/2020 by No Thomas MD at [facility] Right: Ankle Abyrx [id number] 10/29/2022 OS-MON-1 00 06 Synthes 02.211.412 Lcp 56mm Variable Angle Lock Low Profile Precontour Calcaneal - [id number] Implanted:Qty : 1 on 12/21/2020 by No Thomas MD at [facility] Right: Ankle Synthes I 02.211.412 / / Synthes 202.963 2.7mm 5mm 44mm 2.5mm Self Tap Stardrive Cortical T8 Screw Bone - [id number] Implanted:Qty : 1 on 12/21/2020 by No Thomas MD at [facility] Right: Ankle Synthes I 202.963 / / Synthes 02.211.050 2.7mm 50mm Self Tap Lock Variable Angle Stardrive T8 Screw Bone - [id number] Implanted:Qty : 2 on 12/21/2020 by No Thomas MD at [facility] Right: Ankle Synthes I 02.211.050 / / Synthes 02.211.044 2.7mm 44mm Self Tap Lock Variable Angle Stardrive T8 Screw Bone - [id number] Implanted:Qty : 1 on 12/21/2020 by No Thomas MD at [facility] Right: Ankle Synthes I 02.211.044 / / Synthes 02.211.038 2.7mm 38mm Self Tap Lock Variable Angle Stardrive T8 Screw Bone - [id number] Implanted:Qty : 1 on 12/21/2020 by No Thomas MD at [facility] Right: Ankle Synthes I 02.211.038 / / Synthes 02.211.040 2.7mm 40mm Self Tap Lock Variable Angle Stardrive T8 Screw Bone - [id number] Implanted:Qty : 1 on 12/21/2020 by No Thomas MD at [facility] Right: Ankle Synthes I 02.211.040 / / Synthes 02.211.026 2.7mm 26mm Self Tap Lock Variable Angle Stardrive T8 Screw Bone - [id number] Implanted:Qty : 1 on 12/21/2020 by No Thomas MD at [facility] Right: Ankle Synthes I 02.211.026 / / Synthes 02.211.042 2.7mm 42mm Self Tap Lock Variable Angle Stardrive T8 Screw Bone - [id number] Implanted:Qty : 1 on 12/21/2020 by No Thomas MD at [facility] Right: Ankle Synthes I 02.211.042 / / Synthes 204.870 3.5mm 6mm 70mm 2.5mm Self Tap Small Hexagonal Socket Low Profile - [id number] Implanted:Qty : 1 on 12/21/2020 by No Thomas MD at [facility] Right: Ankle Synthes I 204.870 / / Synthes 204.875 3.5mm 6mm 75mm 2.5mm Self Tap Small Hexagonal Socket Low Profile - [id number] Implanted:Qty : 1 on 12/21/2020 by No Thomas MD at [facility] Right: Ankle Synthes I 204.875 / / Synthes 204.855 3.5mm 6mm 55mm 2.5mm Self Tap Small Hexagonal Socket Low Profile - [id number] Implanted:Qty : 2 on 12/21/2020 by No Thomas MD at [facility] Right: Ankle Synthes I 204.855 / / Explanted Type Area Medical Receptionist Biller Device Identifier Shelf Expiration Date Model / Serial / Lot [employer] [id number] Jeremy .062in 9in Trocar Point One End Orthopedic Wire - [id number] Explanted:Qty: 1 on 12/12/2020 by No Thomas MD at [facility] Left: Calcaneus [employer] [id number] / / [employer] [id number] Jeremy .062in 9in 1 Trocar Smooth Wire Fixation - [id number] Explanted:Qty: 3 on 12/19/2020 by No Thomas MD at [facility] Right: Tibia [employer] [id number] / / Synthes 204.842 3.5mm 6mm 42mm 2.5mm Self Tap Small Hexagonal Socket Low Profile - [id number] Explanted:Qty: 1 on 12/19/2020 by No Thomas MD at [facility] Right: Tibia Synthes I 204.842 / / K Wire Explanted:Qty: 2 on 12/21/2020 by No Thomas MD at [facility] Right: Ankle Synthes I 292.820 / / Insurance [id number] CHOICE PLUS [facility]/PPO Address: [address] [place] [address] [facility] CHOICE PLUS [facility]/PPO Address: [place] [address] [id number] CHOICE PLUS [facility]/PPO Address: [address] [address] [place] [address] Advance Directives For more information, please contact: [phone] * Full Code (Latest Code Status on File) Date Activated Date Inactivated Comments 12/10/2020 4:33 AM 12/25/2020 8:02 PM * Full Code Date Activated Date Inactivated Comments 08/07/2020 11:03 AM 08/08/2020 3:36 PM Care Teams Instructional Design Specialist Relationship Specialty Start Date End Date No, Physician PCP - General 02/28/21 No, Physician 12/09/20
--- OUTSIDE RECORDS SUMMARY | 2024-10-02 02:10 | XMS_ITS | Clinical Summary ---
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 Persistent cognitive, visual, and balance impairments. Persistent headache, but relatively mild. Has emotional dysregulation but would prefer to avoid pharmacologic treatment at this time. ?? Offered but will defer MRI at this time given clinical stability/improvement ?? 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 Staging:Pathologic stage from 08/07/2020:Stage [...] (07/13/2020): Added automatically from request for surgery [id number] Mass of right side of neck 06/27/2020 [...] on file 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 Gender Identity Not on file Sexual [...] this topic Medical Devices Implanted Type Area Roll Contour Grinder Device Identifier Shelf Expiration Date Model / Serial / Lot Synthes 294.55 Schanz 5mm 170mm 50mm Blunt Trocar Point Xlong Screw External - [id number] Implanted:Qty : 2 on 12/10/2020 by Sachin Odonnell MD at [facility] Calcaneus Synthes I 294.55 / / [employer] /Ortho [id number] Evos 3.5mm 80mm Self Tap Cortex Screw Bone Sterile - [id number] Implanted:Qty : 1 on 12/12/2020 by No Thomas MD at [facility] Left: Calcaneus Suarez [employer] Nephew/Richco/O rtho [id number] / / [employer] /Ortho 71448276 Evos 3.5mm 70mm Self Tap Cortex Screw Bone Sterile - [id number] Implanted:Qty : 2 on 12/12/2020 by No Thomas MD at [facility] Left: Calcaneus Suarez [employer] Nephew/Richco/O rtho [id number] / / [employer] /Ortho 17945177 Evos 3.5mm 50mm Self Tap Cortex Screw Bone Sterile - [id number] Implanted:Qty : 1 on 12/12/2020 by No Thomas MD at [facility] Left: Calcaneus Suarez [employer]hew/Richco/O rtho [id number] / / [employer] /Ortho 47910568 Evos 3.5mm 55mm Self Tap Cortex Screw Bone Sterile - [id number] Implanted:Qty : 1 on 12/12/2020 by No Thomas MD at [facility] Left: Calcaneus Suarez [employer]hew/Richco/O rtho [id number] / / Su[employer]hew[employer]Rich[employer] /Ortho [id number] Evos 3.5mm 40mm Self Tap Cortex Screw Bone Sterile - [id number] Implanted:Qty : 1 on 12/12/2020 by No Thomas MD at [facility] Left: Calcaneus Suarez [employer]hew/Richco/O rtho [id number] / / Synthes 212.134 3.5mm 2.9mm 44mm Self Tap Lock Stardrive Conical Head T15 Full - [id number] Implanted:Qty : 1 on 12/19/2020 by No Thomas MD at [facility] Right: Tibia Synthes I 212.134 / / Synthes 212.118 3.5mm 2.9mm 42mm Self Tap Lock Stardrive Conical Head Full Thread - [id number] Implanted:Qty : 1 on 12/19/2020 by No Thomas MD at [facility] Right: Tibia Synthes I 212.118 / / Synthes 212.117 3.5mm 2.9mm 40mm Self Tap Lock Stardrive Conical Head T15 Full - [id number] Implanted:Qty : 2 on 12/19/2020 by No Thomas MD at [facility] Right: Tibia Synthes I 212.117 / / Synthes 204.830 3.5mm 6mm 30mm 2.5mm Self Tap Small Hexagonal Socket Low Profile - [id number] Implanted:Qty : 3 on 12/19/2020 by No Thomas MD at [facility] Right: Tibia Synthes I 204.830 / / Synthes 204.838 3.5mm 6mm 38mm 2.5mm Self Tap Small Hexagonal Socket Low Profile - [id number] Implanted:Qty : 1 on 12/19/2020 by No Thomas MD at [facility] Right: Tibia Synthes I 204.838 / / Synthes 204.832 3.5mm 6mm 32mm 2.5mm Self Tap Small Hexagonal Socket Low Profile - [id number] Implanted:Qty : 2 on 12/19/2020 by No Thomas MD at [facility] Right: Tibia Synthes I 204.832 / / Synthes 204.840 3.5mm 6mm 40mm 2.5mm Self Tap Small Hexagonal Socket Low Profile - [id number] Implanted:Qty : 1 on 12/19/2020 by No Thomas MD at [facility] Right: Tibia Synthes I 204.840 / / Synthes 212.119 3.5mm 2.9mm 45mm Self Tap Lock Stardrive Conical Head T15 Full - [id number] Implanted:Qty : 1 on 12/19/2020 by No Thomas MD at [facility] Right: Tibia Synthes I 212.119 / / Synthes 241.450 Lcp Combi 210mm 15 Hole Low Profile Limit Contact Taper Tip - [id number] Implanted:Qty : 1 on 12/19/2020 by No Thomas MD at [facility] Right: Tibia Synthes I 241.450 / / Abyrx Os-Mon-1001 Wax Bone Montage Sterile - [id number] Implanted:Qty : 1 on 12/21/2020 by No Thomas MD at [facility] Right: Ankle Abyrx [id number] 10/29/2022 OS-MON-1 00 / 50296 Abyrx Os-Mon-1001 Wax Bone Montage Sterile - [id number] Implanted:Qty : 1 on 12/21/2020 by No Thomas MD at [facility] Right: Ankle Abyrx [id number] 10/29/2022 OS-MON-1 00 Synthes .412 Lcp 56mm Variable Angle Lock Low Profile Precontour Calcaneal - [id number] Implanted:Qty : 1 on 12/21/2020 by No Thomas MD at [facility] Right: Ankle Synthes I 02211.412 / / Synthes 202.963 2.7mm 5mm 44mm 2.5mm Self Tap Stardrive Cortical T8 Screw Bone - [id number] Implanted:Qty : 1 on 12/21/2020 by No Thomas MD at [facility] Right: Ankle Synthes I 202.963 / / Synthes 02.050 2.7mm 50mm Self Tap Lock Variable Angle Stardrive T8 Screw Bone - [id number] Implanted:Qty : 2 on 12/21/2020 by No Thomas MD at [facility] Right: Ankle Synthes I 02.211.050 / / Synthes 02211.044 2.7mm 44mm Self Tap Lock Variable Angle Stardrive T8 Screw Bone - [id number] Implanted:Qty : 1 on 12/21/2020 by No Thomas MD at [facility] Right: Ankle Synthes I 02.211.044 / / Synthes 02.038 2.7mm 38mm Self Tap Lock Variable Angle Stardrive T8 Screw Bone - [id number] Implanted:Qty : 1 on 12/21/2020 by No Thomas MD at [facility] Right: Ankle Synthes I 02.211.038 / / Synthes 02.211.040 2.7mm 40mm Self Tap Lock Variable Angle Stardrive T8 Screw Bone - [id number] Implanted:Qty : 1 on 12/21/2020 by No Thomas MD at [facility] Right: Ankle Synthes I 02.211.040 / / Synthes 02.211.026 2.7mm 26mm Self Tap Lock Variable Angle Stardrive T8 Screw Bone - [id number] Implanted:Qty : 1 on 12/21/2020 by No Thomas MD at [facility] Right: Ankle Synthes I 02.211.026 / / Synthes 02.211.042 2.7mm 42mm Self Tap Lock Variable Angle Stardrive T8 Screw Bone - [id number] Implanted:Qty : 1 on 12/21/2020 by No Thomas MD at [facility] Right: Ankle Synthes I 02.211.042 / / Synthes 204.870 3.5mm 6mm 70mm 2.5mm Self Tap Small Hexagonal Socket Low Profile - [id number] Implanted:Qty : 1 on 12/21/2020 by No Thomas MD at [facility] Right: Ankle Synthes I 204.870 / / Synthes 204.875 3.5mm 6mm 75mm 2.5mm Self Tap Small Hexagonal Socket Low Profile - [id number] Implanted:Qty : 1 on 12/21/2020 by No Thomas MD at [facility] Right: Ankle Synthes I 204.875 / / Synthes 204.855 3.5mm 6mm 55mm 2.5mm Self Tap Small Hexagonal Socket Low Profile - [id number] Implanted:Qty : 2 on 12/21/2020 by No Thomas MD at [facility] Right: Ankle Synthes I 204.855 / / Explanted Type Area Roll Contour Grinder Device Identifier Shelf Expiration Date Model / Serial / Lot [employer] [id number] Jeremy .062in 9in Trocar Point One End Orthopedic Wire - [id number] Explanted:Qty: 1 on 12/12/2020 by No Thomas MD at [facility] Left: Calcaneus [employer] [id number] / / [employer] [id number] Jeremy .062in 9in 1 Trocar Smooth Wire Fixation - [id number] Explanted:Qty: 3 on 12/19/2020 by No Thomas MD at [facility] Right: Tibia [employer] [id number] / / Synthes 204.842 3.5mm 6mm 42mm 2.5mm Self Tap Small Hexagonal Socket Low Profile - [id number] Explanted:Qty: 1 on 12/19/2020 by No Thomas MD at [facility] Right: Tibia Synthes I 204.842 / / K Wire Explanted:Qty: 2 on 12/21/2020 by No hTomas MD at [facility] Right: Ankle Synthes I 292.820 / / Insurance [facility] CHOICE PLUS [facility] Advance Directives For more information, please contact: [phone] * Full Code (Latest Code Status on File) Date Activated Date Inactivated Comments 12/10/2020 4:33 AM 12/25/2020 8:02 PM * Full Code Date Activated Date Inactivated Comments 08/07/2020 11:03 AM 08/08/2020 3:36 PM Care Teams [employer] Principal Relationship Specialty Start Date End Date No, Physician PCP - General 02/28/21 No, Physician 12/09/20
--- OUTSIDE RECORDS SUMMARY | 2024-10-02 02:10 | XMS_ITS | Encounter Summary ---
Author Organization [facility] Healthcare Address [address] [place] [address] Care Team Providers Care Box Builder Name Role Phone Unknown, Notinfile Primary Care Provider Unavail able No, Physician Unavailable No, Physician Primary Care Provider [phone] Encounter Details Date Type Department Care Team (Latest Contact Info) Description 12/25/2020 Ophth Exam Ophthalmology Maribeth Redd MD PhD [address] [place] [address] Social History Tobacco Use Types Packs/Day Years Used Date Smoking Tobacco: Never Smokeless Tobacco: Never Alcohol Use Standard Drinks/Week Comments Yes 0 (1 standard drink = 0.6 oz pur e alcohol) Sex and Gender Information Value Date Recorded Sex Assigned at Not on file 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
[2024-10-02 02:16] VITALS: BP 122/91; PULSE 127; RESP 17; TEMP 37.2; O2SAT 98
[2024-10-02 02:55] LABS: Influenza A QL RT-PCR Positive (Negative); Influenza B QL RT-PCR Negative (Negative); RSV RNA, RT-PCR Negative (Negative); SARS-CoV-2 RNA PCR Negative (Negative)
--- OUTSIDE RECORDS SUMMARY | 2024-10-02 03:18 | XMS_ITS | Encounter Summary ---
Author Organization [facility] Healthcare Address [address] [place] [address] Care Team Providers Care Destination Sign Repairer Name Role Phone Unknown, Notinfile Primary Care Provider Unavail able Unknown, Notinfile Primary Care Provider Unavail able No, Physician Unavailable No, Physician Primary Care Provider [phone] Encounter Details Date Type Department Care Team (Latest Contact Info) Description 12/18/2020 Ophth Exam Ophthalmology Ofelia Garcia MD [address] [facility] [address] [place] [address] Social History Tobacco Use Types Packs/Day Years Used Date Smoking Tobacco: Every Day Smokeless Tobacco: Never Alcohol Use Standard Drinks/Week Comments Yes 0 (1 standard drink = 0.6 oz pur e alcohol) Sex and Gender Information Value Date Recorded Sex Assigned at Not on file 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
--- OUTSIDE RECORDS SUMMARY | 2024-10-02 03:18 | XMS_ITS | Referral Summary ---
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 Persistent cognitive, visual, and balance impairments. Persistent headache, but relatively mild. Has emotional dysregulation but would prefer to avoid pharmacologic treatment at this time. ?? Offered but will defer MRI at this time given clinical stability/improvement ?? 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 from [...] (07/13/2020): Added automatically from request for surgery [id number] Mass of right side of neck 06/27/2020 [...] on file Legal Sex Male 11:16 AM CARGO AGENT Gender Identity Not on file Sexual [...] on file Medical Devices Implanted Type Area Grocery Worker Device Identifier Shelf Expiration Date Model / Serial / Lot Synthes 294.55 Schanz 5mm 170mm 50mm Blunt Trocar Point Xlong Screw External - [id number] Implanted:Qty : 2 on 12/10/2020 by Sachin Odonnell MD at [facility] Calcaneus Synthes I 294.55 / / Su[employer] Nephew[employer]Richco /Ortho [id number] Evos 3.5mm 80mm Self Tap Cortex Screw Bone Sterile - [id number] Implanted:Qty : 1 on 12/12/2020 by No Thomas MD at [facility] Left: Calcaneus Suarez [employer] Nephew/Richco/O rtho [id number] / / Su[employer]hew[employer]Richco /Ortho [id number] Evos 3.5mm 70mm Self Tap Cortex Screw Bone Sterile - [id number] Implanted:Qty : 2 on 12/12/2020 by No Thomas MD at [facility] Left: Calcaneus Suarez [employer] Nephew/Richco/O rtho [id number] / / Su[employer]hew[employer]Richco /Ortho [id number] Evos 3.5mm 50mm Self Tap Cortex Screw Bone Sterile - [id number] Implanted:Qty : 1 on 12/12/2020 by No Thomas MD at [facility] Left: Calcaneus Suarez [employer]hew/Richco/O rtho [id number] / / [employer]Richco /Ortho [id number] Evos 3.5mm 55mm Self Tap Cortex Screw Bone Sterile - [id number] Implanted:Qty : 1 on 12/12/2020 by No Thomas MD at [facility] Left: Calcaneus Suarez [employer] Nephew/Richco/O rtho [id number] / / [employer]hew[employer]Richco /Ortho [id number] Evos 3.5mm 40mm Self Tap Cortex Screw Bone Sterile - [id number] Implanted:Qty : 1 on 12/12/2020 by No Thomas MD at [facility] Left: Calcaneus Suarez [employer] Nephew/Richco/O rtho [id number] / / Synthes 212.134 3.5mm 2.9mm 44mm Self Tap Lock Stardrive Conical Head T15 Full - [id number] Implanted:Qty : 1 on 12/19/2020 by No Thomas MD at [facility] Right: Tibia Synthes I 212.134 / / Synthes 212.118 3.5mm 2.9mm 42mm Self Tap Lock Stardrive Conical Head Full Thread - [id number] Implanted:Qty : 1 on 12/19/2020 by No Thomas MD at [facility] Right: Tibia Synthes I 212.118 / / Synthes 212.117 3.5mm 2.9mm 40mm Self Tap Lock Stardrive Conical Head T15 Full - [id number] Implanted:Qty : 2 on 12/19/2020 by No Thomas MD at [facility] Right: Tibia Synthes I 212.117 / / Synthes 204.830 3.5mm 6mm 30mm 2.5mm Self Tap Small Hexagonal Socket Low Profile - [id number] Implanted:Qty : 3 on 12/19/2020 by No Thomas MD at [facility] Right: Tibia Synthes I 204.830 / / Synthes 204.838 3.5mm 6mm 38mm 2.5mm Self Tap Small Hexagonal Socket Low Profile - [id number] Implanted:Qty : 1 on 12/19/2020 by No Thomas MD at [facility] Right: Tibia Synthes I 204.838 / / Synthes 204.832 3.5mm 6mm 32mm 2.5mm Self Tap Small Hexagonal Socket Low Profile - [id number] Implanted:Qty : 2 on 12/19/2020 by No Thomas MD at [facility] Right: Tibia Synthes I 204.832 / / Synthes 204.840 3.5mm 6mm 40mm 2.5mm Self Tap Small Hexagonal Socket Low Profile - [id number] Implanted:Qty : 1 on 12/19/2020 by No Thomas MD at [facility] Right: Tibia Synthes I 204.840 / / Synthes 212.119 3.5mm 2.9mm 45mm Self Tap Lock Stardrive Conical Head T15 Full - [id number] Implanted:Qty : 1 on 12/19/2020 by No Thomas MD at [facility] Right: Tibia Synthes I 212.119 / / Synthes 241.450 Lcp Combi 210mm 15 Hole Low Profile Limit Contact Taper Tip - [id number] Implanted:Qty : 1 on 12/19/2020 by No Thmoas MD at [facility] Right: Tibia Synthes I 241.450 / / Abyrx Os-Mon-1001 Wax Bone Montage Sterile - [id number] Implanted:Qty : 1 on 12/21/2020 by No Thomas MD at [facility] Right: Ankle Abyrx [id number] 10/29/2022 OS-MON-1 00 Abyrx Os-Mon-1001 Wax Bone Montage Sterile - [id number] Implanted:Qty : 1 on 12/21/2020 by No Thomas MD at [facility] Right: Ankle Abyrx [id number] 10/29/2022 OS-MON-1 00 06 Synthes 02.211.412 Lcp 56mm Variable Angle Lock Low Profile Precontour Calcaneal - [id number] Implanted:Qty : 1 on 12/21/2020 by No Tohmas MD at [facility] Right: Ankle Synthes I 02.211.412 / / Synthes 202.963 2.7mm 5mm 44mm 2.5mm Self Tap Stardrive Cortical T8 Screw Bone - [id number] Implanted:Qty : 1 on 12/21/2020 by No Thomas MD at [facility] Right: Ankle Synthes I 202.963 / / Synthes 02.211.050 2.7mm 50mm Self Tap Lock Variable Angle Stardrive T8 Screw Bone - [id number] Implanted:Qty : 2 on 12/21/2020 by No Thomas MD at [facility] Right: Ankle Synthes I 02.211.050 / / Synthes 02.211.044 2.7mm 44mm Self Tap Lock Variable Angle Stardrive T8 Screw Bone - [id number] Implanted:Qty : 1 on 12/21/2020 by No Thomas MD at [facility] Right: Ankle Synthes I 02.211.044 / / Synthes 02.211.038 2.7mm 38mm Self Tap Lock Variable Angle Stardrive T8 Screw Bone - [id number] Implanted:Qty : 1 on 12/21/2020 by No Thomas MD at [facility] Right: Ankle Synthes I 02.211.038 / / Synthes 02.211.040 2.7mm 40mm Self Tap Lock Variable Angle Stardrive T8 Screw Bone - [id number] Implanted:Qty : 1 on 12/21/2020 by No Thomas MD at [facility] Right: Ankle Synthes I 02.211.040 / / Synthes 02.211.026 2.7mm 26mm Self Tap Lock Variable Angle Stardrive T8 Screw Bone - [id number] Implanted:Qty : 1 on 12/21/2020 by No Thomas MD at [facility] Right: Ankle Synthes I 02.211.026 / / Synthes 02.211.042 2.7mm 42mm Self Tap Lock Variable Angle Stardrive T8 Screw Bone - [id number] Implanted:Qty : 1 on 12/21/2020 by No Thomas MD at [facility] Right: Ankle Synthes I 02.211.042 / / Synthes 204.870 3.5mm 6mm 70mm 2.5mm Self Tap Small Hexagonal Socket Low Profile - [id number] Implanted:Qty : 1 on 12/21/2020 by No Thomas MD at [facility] Right: Ankle Synthes I 204.870 / / Synthes 204.875 3.5mm 6mm 75mm 2.5mm Self Tap Small Hexagonal Socket Low Profile - [id number] Implanted:Qty : 1 on 12/21/2020 by No Thomas MD at [facility] Right: Ankle Synthes I 204.875 / / Synthes 204.855 3.5mm 6mm 55mm 2.5mm Self Tap Small Hexagonal Socket Low Profile - [id number] Implanted:Qty : 2 on 12/21/2020 by No Thomas MD at [facility] Right: Ankle Synthes I 204.855 / / Explanted Type Area Grocery Worker Device Identifier Shelf Expiration Date Model / Serial / Lot [employer] [id number] Jeremy .062in 9in Trocar Point One End Orthopedic Wire - [id number] Explanted:Qty: 1 on 12/12/2020 by No Thomas MD at [facility] Left: Calcaneus [employer] [id number] / / [employer] [id number] Jeremy .062in 9in 1 Trocar Smooth Wire Fixation - [id number] Explanted:Qty: 3 on 12/19/2020 by No Thomas MD at [facility] Right: Tibia [employer] [id number] / / Synthes 204.842 3.5mm 6mm 42mm 2.5mm Self Tap Small Hexagonal Socket Low Profile - [id number] Explanted:Qty: 1 on 12/19/2020 by No Thomas MD at [facility] Right: Tibia Synthes I 204.842 / / K Wire Explanted:Qty: 2 on 12/21/2020 by No Thomas MD at [facility] Right: Ankle Synthes I 292.820 / / Insurance [id number] CHOICE PLUS [facility] H[facility]/PPO Address: [address] [place] [address] [facility] CHOICE PLUS [facility]/[place] [address] [id number] CHOICE PLUS [facility] HMO/PPO Address: [address] [address] [place] [address] Advance Directives For more information, please contact: [phone] * Full Code (Latest Code Status on File) Date Activated Date Inactivated Comments 12/10/2020 4:33 AM 12/25/2020 8:02 PM * Full Code Date Activated Date Inactivated Comments 08/07/2020 11:03 AM 08/08/2020 3:36 PM Care Teams Organizational Research Consultant Relationship Specialty Start Date End Date No, Physician PCP - General 02/28/21 No, Physician 12/09/20
--- OUTSIDE RECORDS SUMMARY | 2024-10-02 03:18 | XMS_ITS | Encounter Summary ---
Author Organization [facility] Healthcare Address [address] [place] [address] Care Team Providers Care Defective Cigarette Slitter Name Role Phone Unknown, Notinfile Primary Care Provider Unavail able No, Physician Unavailable No, Physician Primary Care Provider [phone] Encounter Details Date Type Department Care Team (Latest Contact Info) Description 12/25/2020 Ophth Exam Ophthalmology Maribeth Redd MD PhD [address] [place] [address] Social History Tobacco Use Types Packs/Day Years Used Date Smoking Tobacco: Never Smokeless Tobacco: Never Alcohol Use Standard Drinks/Week Comments Yes 0 (1 standard drink = 0.6 oz pur e alcohol) Sex and Gender Information Value Date Recorded Sex Assigned at Not on file Legal Sex Male 11:16 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
--- OUTSIDE RECORDS SUMMARY | 2024-10-02 03:18 | XMS_ITS | Encounter Summary ---
Author Organization [facility] Address [address] [place] [address] Phone Care Team Providers Care Gis Manager Name Role Phone Unknown, Notinfile Primary Care Provider Unavail able Unknown, Notinfile Primary Care Provider Unavail able No, Physician Unavailable No, Physician Primary Care Provider [phone] Encounter Details Date Type Department Care Team (Late st Contact Info) Description 12/09/2020 Ophth Exam [facility] Ophthalmology [address] [place] [address] [address] [place] [id number] Bri Tello MD [address] [place], [place] [id number] Social History Tobacco Use Types Packs/Day Years Used Date Smoking Tobacco: Never Assessed Alcohol Use Standard Drinks/Week Comments Yes 0 (1 standard drink = 0.6 oz pur e alcohol) Sex and Gender Information Value Date Recorded Sex Assigned at Not on file Legal Sex Male 11:16 AM 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
--- OUTSIDE RECORDS SUMMARY | 2024-10-02 03:18 | XMS_ITS | Clinical Summary ---
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) 08/05/2021 Assessment & Plan (08/05/2021 10:00 AM INDUSTRIAL YARD BRAKE COUPLER): Suspect at least moderate severity, although unclear. Persistent cognitive, visual, and balance impairments. Persistent headache, but relatively mild. Has emotional dysregulation but would prefer to avoid pharmacologic treatment at this time. ?? Offered but will defer MRI at this time given clinical stability/improvement ?? 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 Staging:Pathologic stage from 08/07/2020:Stage I(pT2, [...] (07/13/2020): Added automatically from request for surgery [id number] Mass of right side of neck 06/27/2020 [...] on file Legal Sex Male 11:16 AM INDUSTRIAL YARD BRAKE COUPLER Gender Identity Not on file Sexual Orientation [...] this topic Medical Devices Implanted Type Area Cashier Assistant Device Identifier Shelf Expiration Date Model / Serial / Lot Synthes 294.55 Schanz 5mm 170mm 50mm Blunt Trocar Point Xlong Screw External - [id number] Implanted:Qty : 2 on 12/10/2020 by Sachin Odonnell MD at [facility] Calcaneus Synthes I 294.55 / / [employer] /Ortho [id number] Evos 3.5mm 80mm Self Tap Cortex Screw Bone Sterile - [id number] Implanted:Qty : 1 on 12/12/2020 by No Thomas MD at [facility] Left: Calcaneus Suarez [employer]hew[employer]Richco/O rtho [id number] / / [employer] /Ortho 16262825 Evos 3.5mm 70mm Self Tap Cortex Screw Bone Sterile - [id number] Implanted:Qty : 2 on 12/12/2020 by No Thomas MD at [facility] Left: Calcaneus Suarez [employer]hew[employer]Richco/O rtho [id number] / / [employer] /Ortho 02195702 Evos 3.5mm 50mm Self Tap Cortex Screw Bone Sterile - [id number] Implanted:Qty : 1 on 12/12/2020 by No Thomas MD at [facility] Left: Calcaneus Suarez [employer]hew/Richco/O rtho [id number] / / [employer] /Ortho 80413747 Evos 3.5mm 55mm Self Tap Cortex Screw Bone Sterile - [id number] Implanted:Qty : 1 on 12/12/2020 by No Thomas MD at [facility] Left: Calcaneus Suarez [employer] Nephew/Richco/O rtho [id number] / / [employer]hew[employer]Rich[employer] /Ortho 93900900 Evos 3.5mm 40mm Self Tap Cortex Screw Bone Sterile - [id number] Implanted:Qty : 1 on 12/12/2020 by No Thomas MD at [facility] Left: Calcaneus Suarez [employer] Nephew/Richco/O rtho [id number] / / Synthes 212.134 3.5mm 2.9mm 44mm Self Tap Lock Stardrive Conical Head T15 Full - [id number] Implanted:Qty : 1 on 12/19/2020 by No Thomas MD at [facility] Right: Tibia Synthes I 212.134 / / Synthes 212.118 3.5mm 2.9mm 42mm Self Tap Lock Stardrive Conical Head Full Thread - [id number] Implanted:Qty : 1 on 12/19/2020 by No Thomas MD at [facility] Right: Tibia Synthes I 212.118 / / Synthes 212.117 3.5mm 2.9mm 40mm Self Tap Lock Stardrive Conical Head T15 Full - [id number] Implanted:Qty : 2 on 12/19/2020 by No Thomas MD at [facility] Right: Tibia Synthes I 212.117 / / Synthes 204.830 3.5mm 6mm 30mm 2.5mm Self Tap Small Hexagonal Socket Low Profile - [id number] Implanted:Qty : 3 on 12/19/2020 by No Thomas MD at [facility] Right: Tibia Synthes I 204.830 / / Synthes 204.838 3.5mm 6mm 38mm 2.5mm Self Tap Small Hexagonal Socket Low Profile - [id number] Implanted:Qty : 1 on 12/19/2020 by No Thomas MD at [facility] Right: Tibia Synthes I 204.838 / / Synthes 204.832 3.5mm 6mm 32mm 2.5mm Self Tap Small Hexagonal Socket Low Profile - [id number] Implanted:Qty : 2 on 12/19/2020 by No Thomas MD at [facility] Right: Tibia Synthes I 204.832 / / Synthes 204.840 3.5mm 6mm 40mm 2.5mm Self Tap Small Hexagonal Socket Low Profile - [id number] Implanted:Qty : 1 on 12/19/2020 by No Thomas MD at [facility] Right: Tibia Synthes I 204.840 / / Synthes 212.119 3.5mm 2.9mm 45mm Self Tap Lock Stardrive Conical Head T15 Full - [id number] Implanted:Qty : 1 on 12/19/2020 by No Thomas MD at [facility] Right: Tibia Synthes I 212.119 / / Synthes 241.450 Lcp Combi 210mm 15 Hole Low Profile Limit Contact Taper Tip - [id number] Implanted:Qty : 1 on 12/19/2020 by No Thomas MD at [facility] Right: Tibia Synthes I 241.450 / / Abyrx Os-Mon-1001 Wax Bone Montage Sterile - [id number] Implanted:Qty : 1 on 12/21/2020 by No Thomas MD at [facility] Right: Ankle Abyrx [id number] 10/29/2022 OS-MON-1 00 / 71191 Abyrx Os-Mon-1001 Wax Bone Montage Sterile - [id number] Implanted:Qty : 1 on 12/21/2020 by No Thomas MD at [facility] Right: Ankle Abyrx [id number] 10/29/2022 OS-MON-1 00 Synthes .412 Lcp 56mm Variable Angle Lock Low Profile Precontour Calcaneal - [id number] Implanted:Qty : 1 on 12/21/2020 by No Thomas MD at [facility] Right: Ankle Synthes I 02211.412 / / Synthes 202.963 2.7mm 5mm 44mm 2.5mm Self Tap Stardrive Cortical T8 Screw Bone - [id number] Implanted:Qty : 1 on 12/21/2020 by No Thomas MD at [facility] Right: Ankle Synthes I 202.963 / / Synthes 02.050 2.7mm 50mm Self Tap Lock Variable Angle Stardrive T8 Screw Bone - [id number] Implanted:Qty : 2 on 12/21/2020 by No Thomas MD at [facility] Right: Ankle Synthes I 02.211.050 / / Synthes 02211.044 2.7mm 44mm Self Tap Lock Variable Angle Stardrive T8 Screw Bone - [id number] Implanted:Qty : 1 on 12/21/2020 by No Thomas MD at [facility] Right: Ankle Synthes I 02.211.044 / / Synthes 02.038 2.7mm 38mm Self Tap Lock Variable Angle Stardrive T8 Screw Bone - [id number] Implanted:Qty : 1 on 12/21/2020 by No Thomas MD at [facility] Right: Ankle Synthes I 02.211.038 / / Synthes 02.211.040 2.7mm 40mm Self Tap Lock Variable Angle Stardrive T8 Screw Bone - [id number] Implanted:Qty : 1 on 12/21/2020 by No Thomas MD at [facility] Right: Ankle Synthes I 02.211.040 / / Synthes 02.211.026 2.7mm 26mm Self Tap Lock Variable Angle Stardrive T8 Screw Bone - [id number] Implanted:Qty : 1 on 12/21/2020 by No Thomas MD at [facility] Right: Ankle Synthes I 02.211.026 / / Synthes 02.211.042 2.7mm 42mm Self Tap Lock Variable Angle Stardrive T8 Screw Bone - [id number] Implanted:Qty : 1 on 12/21/2020 by No Thomas MD at [facility] Right: Ankle Synthes I 02.211.042 / / Synthes 204.870 3.5mm 6mm 70mm 2.5mm Self Tap Small Hexagonal Socket Low Profile - [id number] Implanted:Qty : 1 on 12/21/2020 by No Thomas MD at [facility] Right: Ankle Synthes I 204.870 / / Synthes 204.875 3.5mm 6mm 75mm 2.5mm Self Tap Small Hexagonal Socket Low Profile - [id number] Implanted:Qty : 1 on 12/21/2020 by No Thomas MD at [facility] Right: Ankle Synthes I 204.875 / / Synthes 204.855 3.5mm 6mm 55mm 2.5mm Self Tap Small Hexagonal Socket Low Profile - [id number] Implanted:Qty : 2 on 12/21/2020 by No Thomas MD at [facility] Right: Ankle Synthes I 204.855 / / Explanted Type Area Cashier Assistant Device Identifier Shelf Expiration Date Model / Serial / Lot [employer] [id number] Jeremy .062in 9in Trocar Point One End Orthopedic Wire - [id number] Explanted:Qty: 1 on 12/12/2020 by No Thomas MD at [facility] Left: Calcaneus [employer] [id number] / / [employer] [id number] Jeremy .062in 9in 1 Trocar Smooth Wire Fixation - [id number] Explanted:Qty: 3 on 12/19/2020 by No Thomas MD at [facility] Right: Tibia [employer] [id number] / / Synthes 204.842 3.5mm 6mm 42mm 2.5mm Self Tap Small Hexagonal Socket Low Profile - [id number] Explanted:Qty: 1 on 12/19/2020 by No Thomas MD at [facility] Right: Tibia Synthes I 204.842 / / K Wire Explanted:Qty: 2 on 12/21/2020 by No Thomas MD at [facility] Right: Ankle Synthes I 292.820 / / Insurance [facility] CHO[facility] Advance Directives For more information, please contact: [phone] * Full Code (Latest Code Status on File) Date Activated Date Inactivated Comments 12/10/2020 4:33 AM 12/25/2020 8:02 PM * Full Code Date Activated Date Inactivated Comments 08/07/2020 11:03 AM 08/08/2020 3:36 PM Care Teams Golf Sales Manager Relationship Specialty Start Date End Date No, Physician PCP - General 02/28/21 No, Physician 12/09/20
--- OUTSIDE RECORDS SUMMARY | 2024-10-02 03:18 | XMS_ITS | Clinical Summary ---
Author Organization [facility] Address [address] [place] [address]. [place], [place] [address] [place] [address] Care Team Providers Care Audio Visual Aids Director Name Role Phone None, Provider MD Primary [...] patient's age to complete this topic Insurance [facility] Care Teams Audio Visual Aids Director Relationship Specialty Start Date End Date None, Provider, PCP - General 03/28/20
--- OUTSIDE RECORDS SUMMARY | 2024-10-02 03:18 | XMS_ITS ---
Author Organization [facility] Address [address] [place] [address] Care Team Providers Care Aircraft Cabin Cleaner Name Role Phone No, Physician Unavailable No, Physician Primary Care Provider [phone] Active Problems Problem Noted Date Diagnosed Date Insomnia 11/15/2022 Chronic post-traumatic headache, not intractable 11/15/2022 Traumatic brain injury with loss of consciousnes s ([facility]) 08/05/2021 Assessment & Plan (08/05/2021 10:00 AM PIZZA HUT ASSISTANT): Suspect at least moderate severity, although unclear. Persistent cognitive, visual, and balance impairments. Persistent headache, but relatively mild. Has emotional dysregulation but would prefer to avoid pharmacologic treatment at this time. ?? Offered but will defer MRI at this time given clinical stability/improvement ?? 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 Past Plans No past plan information found. Radiation Treatments * No radiation treatments are documented for this patient in [facility]. Treatments may have been administered in another system. Lifetime Dose Tracking * Chemical Lifetime Dose Automatic Entry Manual Entr y Fluoro Time 8.628 minutes 8.628 minutes 0 minutes Air kerma at the reference point (Ka,r) 15.39 mGy 1 5.39 mGy 0 mGy DLP 5,382 mGycm 5,382 mGycm 0 mGycm
--- OUTSIDE RECORDS SUMMARY | 2024-10-02 03:18 | XMS_ITS | Encounter Summary ---
Author Organization [facility] Address [address] [facility] [address] [place] [address] Phone Care Team Providers Care Vp Information Technology Name Role Phone Unknown, Notinfile Primary Care Provider Unavail able Unknown, Notinfile Primary Care Provider Unavail able No, Physician Unavailable No, Physician Primary Care Provider [phone] Encounter Details Date Type Department Care Team (Late st Contact Info) Description 12/11/2020 Ophth Exam [facility] Ophthalmology [address] [place] [address] 1st [place] [id number] Kirill Sanchez MD [address] [place], [place] [id number] Social History Tobacco Use Types Packs/Day Years Used Date Smoking Tobacco: Every Day Smokeless Tobacco: Never Alcohol Use Standard Drinks/Week Comments Yes 0 (1 standard drink = 0.6 oz pur e alcohol) Sex and Gender Information Value Date Recorded Sex Assigned at Not on file Legal Sex Male 11:16 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
--- OUTSIDE RECORDS SUMMARY | 2024-10-02 03:18 | XMS_ITS | Encounter Summary ---
Author Organization [facility] Address [address] [place] [address] Care Team Providers Care Stock Sheets Cleaner Inspector Name Role Phone Unknown, Notinfile Primary Care Provider Unavail able Unknown, Notinfile Primary Care Provider Unavail able No, Physician Unavailable No, Physician Primary Care Provider [phone] Encounter Details Date Type Department Care Team (Latest Contact Info) Description 12/14/2020 Ophth Exam Ophthalmology Ofelia Garcia MD [address] [facility] [address] [place] [address] Social History Tobacco Use Types Packs/Day Years Used Date Smoking Tobacco: Every Day Smokeless Tobacco: Never Alcohol Use Standard Drinks/Week Comments Yes 0 (1 standard drink = 0.6 oz pur e alcohol) Sex and Gender Information Value Date Recorded Sex Assigned at Not on file 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
--- NOTE | 2024-10-02 03:20 | ECG_ITS ---
Test Date: 2024-10-02 03:39:47 Measurements Intervals [place] Rate: 108 P: 25 CO: 137 QRS: -6 QRSD: 76 T: 14 QT: 312 QTc: 419 Interpretive Statements SINUS TACHYCARDIA BASELINE ARTIFACT- I, II, III, AVR, AVL, AVF ABNORMAL ECG Compared to ECG 09/04/2024 02:34:27 T-wave abnormality no longer present Electronically Signed On 10-02-2024 09:54:20 BREAKER HAND by Vignesh Yancey D.O.
[2024-10-02 04:14] LABS: Basophils Percent Auto 0.3 % (0.2-1.2); Hematocrit 48.1 % (42.0-52.0); Hemoglobin 16.3 g/dL (14.0-18.0); Immature Granulocyte Absolute 0.02 K/mm3 (0.00-0.031); Immature Granulocyte Percent A 0.3 % (0-0.5); Lymphocytes Percent Auto 13.5 % (18.3-44.2); Mean Corpuscular HGB Conc 33.9 g/dl (32-36); Mean Corpuscular Hemoglobin 31.1 pg (26-34); Mean Corpuscular Volume 91.8 fl (80-100); Mean Platelet Volume 9.2 fl (7.4-10.4); Monocytes Absolute Auto 0.4 K/mm3 (0.1-0.6); Monocytes Percent Auto 5.2 % (2.6-8.5); Neutrophils Absolute Auto 5.4 K/mm3 (1.3-6.7); Neutrophils Percent Auto 80.7 % (45.5-73.1); Platelet Count Result 174 k/mm3 (150-375); Red Blood Count 5.24 M/mm3 (4.6-6.20); Red Cell Distribution Width 13.5 % (11.5-14.5); White Blood Count 6.7 K/mm3 (4.5-10.0)
[2024-10-02] MEDS: ONDANSETRON INJ 4 MG/2 ML VIAL IV PUSH (04:19)
[2024-10-02] MEDS: MORPHINE SULFATE (*CRX) 2 MG/ML INJ IV PUSH (04:19)
[2024-10-02] MEDS: SODIUM CHLORIDE 0.9% IV 1,000 ML 999 ML IV CONT (04:19)
[2024-10-02 04:23] VITALS: BP 144/92; PULSE 104; RESP 15; TEMP 38.3; O2SAT 100
[2024-10-02 04:24] LABS: Alanine Aminotransferase 45 U/L (6-50); Albumin Level 3.9 g/dL (3.5-5.1); Alkaline Phosphatase 121 U/L (38-126); Anion Gap 12 mmol/L (4-12); Aspartate Amino Transferase 55 U/L (17-59); Bilirubin,Total 0.5 mg/dL (0.2-1.3); Blood Urea Nitrogen 13 mg/dL (9-20); Calcium 8.7 mg/dL (8.4-10.2); Carbon Dioxide 24 mmol/L (22-30); Chloride 96 mmol/L (98-107); Estimated CRCL calculation 102 ml/min; Estimated Glomerular Filt Rate > 60; Glucose 93 mg/dL (65-110); Potassium 4.6 mmol/L (3.4-5.0); Sodium 132 mmol/L (137-145)
[2024-10-02 04:25] LABS: INR 0.9; Prothrombin Time 13.1 Seconds (11.1-14.7)
[2024-10-02 04:26] LABS: Partial Thromboplastin Time 35.4 Seconds (22.3-36.8)
[2024-10-02 04:35] LABS: Troponin I < 0.012 ng/mL (0.000-0.034)
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
[2024-10-02] MEDS: KETOROLAC 30 MG/ML VIAL (*BKC) IV PUSH (04:45)
[2024-10-02 05:46] VITALS: BP 144/93; PULSE 99; RESP 14; TEMP 36.8; O2SAT 98
[2024-10-02] MEDS: ONDANSETRON HCL ODT 4 MG TABLET PO (05:59)
== END 2024-10-02 06:00 | disposition home or self-care (01) ==
PROVIDERS: Emergency Provider Emergency Medicine
DX: J10.1 Influenza due to other identified influenza virus with other respiratory manifestations (principal); Z20.822 Contact with and (suspected) exposure to COVID-19
CPT/HCPCS: 36415; 71046; 80053; 84484; 85025; 85610; 85730; 87637; 93005; 96361; 96374; 96375; 99284; A9270; J1885; J2270; J2405; J7030

== ENCOUNTER 2024-10-08 17:36 | Emergency (ER) | payer MEDICARE, MEDICAID, SELFPAY ==
--- NOTE | ~2024-10-08 | XR_ITS ---
CHEST RADIOGRAPH CLINICAL HISTORY: weak . COMPARISON: 10/02/2024 TECHNIQUE: Single portable view of the chest. FINDINGS The cardiomediastinal silhouette is unremarkable. Calcified nodules within the bilateral lung turner, consistent with prior granulomatous disease. Calcified lymph nodes within the mediastinum are also present, also representing prior granulomatous disease. Coarse interstitial lung markings are detected bilaterally, findings suggestive of chronic lung disea se. The remainder of the lungs are clear. IMPRESSION: Findings consistent with prior granulomatous disease without focal infiltrate or effusion. Reviewed, dictated and finalized at location A. UIT BENDER IMPRESSION: Findings consistent with prior granulomatous disease without focal infiltrate o r effusion.
--- NOTE | ~2024-10-08 | CT_ITS ---
EXAMINATION: CTA chest PE abdomen pel DATE: 10/08/2024 21:46 CROOK OPERATOR INDICATION: Elevated d-dimer, tachycardia, weakness, abdominal pain TECHNIQUE: Computed tomographic angiography (CTA) of the chest was performed, along with multiple con tiguous axial images of the abdomen and pelvis with 100 mL Omnipaque-350 intravenous contrast. The do se-length product was 1321.47 mGy-cm. Maximum intensity projection 3D-reconstructions of the aorta an d other arteries were constructed by the technologist on a separate workstation. FINDINGS/OBSERVATIONS: PULMONARY ARTERIES: No filling defect is identified within the main or proximal pulmonary artery. The main pulmonary artery is not enlarged. THORACIC AORTA: No aneurysmal dilatation or dissection is present. The great vessels are intact LUNGS: Patchy groundglass opacification detected bilaterally. These findings suggest either pulmonary edema versus multifocal (atypical) pneumonia. Calcified granulomas are also detected within the parenchyma suggesting prior granulomatous disease. MEDIASTINUM: No morphologically suspicious or pathologically enlarged lymph nodes are identified with in the mediastinum or bilateral axilla. Multiple calcified lymph nodes are present, suggesting prior granulomatous disease. BONES OF THE CHEST: No acute fracture. No significant degenerative disease. No lytic or blastic lesions. HEART: The heart is of normal size, without pericardial effusion. LIVER: The liver enhances homogeneously and is not enlarged measuring 15 cm in longitudinal dimension. GALLBLADDER AND BILIARY SYSTEM: The gallbladder is distended, and otherwise unremarkable. PANCREAS: The pancreas enhances homogeneously without ductal dilatation. SPLEEN: Punctate calcifications identified within the splenic parenchyma, suggesting prior granulomat ous disease. The remainder of the spleen otherwise enhances homogeneously and is not enlarged measuring 8 cm in lo ngitudinal dimension. KIDNEYS: The bilateral kidneys enhance symmetrically without hydronephrosis or renal calculi. ADRENAL GLANDS: Unremarkable. GASTROINTESTINAL TRACT: Trace fecal stasis. APPENDIX: The appendix is not definitively visualized. However, no pericecal inflammatory change is identified suggest the presence of acute appendicitis. VASCULATURE: Trace calcified atherosclerotic disease. LYMPH NODES: No pathologically enlarged or morphologically suspicious lymph nodes within the retroperitoneum or at the root of the mesentery. PELVIC STRUCTURES: The bladder is only minimally distended with significantly thickened webb and surrounding inflammato ry change, findings suggesting cystitis. The prostate gland is not enlarged and contains bulky calcifications. BODY WALL AND MUSCULOSKELETAL: Small fat-containing umbilical hernia. Straightening of the normal curvature of the lumbar spine is identified, possibly muscular in origin. Degenerative disease is identified at the level of L5/S1 with osteophyte formation, disc space narrow ing, endplate changes and vacuum phenomena IMPRESSION: No pulmonary embolus. No aortic dissection. Findings within the pulmonary parenchyma suggesting either pulmonary edema versus multifocal (atypica l) pneumonia. Gallbladder distention. Findings suggesting cystitis. Additional findings suggesting prior granulomatous disease Reviewed, dictated and finalized at location A. K OPERATOR IMPRESSION: No pulmonary embolus. No aortic dissection. Findings within the pulmonary parenchyma suggesting either pulmonary edema vers us multifocal (atypical) pneumonia. Gallbladder distention. Findings suggesting cystitis. Additional findings suggesting prior granulomatous disease
--- OUTSIDE RECORDS SUMMARY | 2024-10-08 17:37 | XMS_ITS | Clinical Summary ---
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 Persistent cognitive, visual, and balance impairments. Persistent headache, but relatively mild. Has emotional dysregulation but would prefer to avoid pharmacologic treatment at this time. 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 Cancer Staging:Pathologic stage from 08/07/2020:Stage [...] (07/13/2020): Added automatically from request for surgery [id number] Mass of right side of neck 06/27/2020 [...] on file Legal Sex Male 11:16 AM DECAL TRANSFERRER Gender Identity Not on file Sexual Orientation Not on file Obstetrics History Last Filed Vital Signs Vital Sign Reading Time Taken Comments Blood Pressure 117/80 11/15/2022 2:15 PM CDT Pulse 84 11/15/2022 2:15 PM CDT Temperature 36.8 C (98.3 F) 11/15/2022 2:15 PM CDT Respiratory Rate 9 01/16/2021 2:05 PM CDT [...] this topic Medical Devices Implanted Type Area Table Top Tile Setter Device Identifier Shelf Expiration Date Model / Serial / Lot Synthes 294.55 Schanz 5mm 170mm 50mm Blunt Trocar Point Xlong Screw External - [id number] Implanted:Qty : 2 on 12/10/2020 by Sachin Odonnell MD at [facility] Calcaneus Synthes I 294.55 / / Su[employer] Nephew/Richco /Ortho [id number] Evos 3.5mm 80mm Self Tap Cortex Screw Bone Sterile - [id number] Implanted:Qty : 1 on 12/12/2020 by No Thomas MD at [facility] Left: Calcaneus Su[employer]hew/Rich[employer]/O rtho [id number] / / [employer] /Ortho [id number] Evos 3.5mm 70mm Self Tap Cortex Screw Bone Sterile - [id number] Implanted:Qty : 2 on 12/12/2020 by No Thomas MD at [facility] Left: Calcaneus Su[employer]hew/Rich[employer]/O rtho [id number] / / [employer] /Ortho [id number] Evos 3.5mm 50mm Self Tap Cortex Screw Bone Sterile - [id number] Implanted:Qty : 1 on 12/12/2020 by No Thomas MD at [facility] Left: Calcaneus Su[employer]hew/Richco/O rtho [id number] / / [employer]Richco /Ortho [id number] Evos 3.5mm 55mm Self Tap Cortex Screw Bone Sterile - [id number] Implanted:Qty : 1 on 12/12/2020 by No Thomas MD at [facility] Left: Calcaneus Su[employer]hew/Richco/O rtho [id number] / / [employer]Richco /Ortho [id number] Evos 3.5mm 40mm Self Tap Cortex Screw Bone Sterile - [id number] Implanted:Qty : 1 on 12/12/2020 by No hTomas MD at [facility] Left: Calcaneus [employer]Rich[employer]/O rtho [id number] / / Synthes 212.134 3.5mm 2.9mm 44mm Self Tap Lock Stardrive Conical Head T15 Full - [id number] Implanted:Qty : 1 on 12/19/2020 by No Thomas MD at [facility] Right: Tibia Synthes I 212.134 / / Synthes 212.118 3.5mm 2.9mm 42mm Self Tap Lock Stardrive Conical Head Full Thread - [id number] Implanted:Qty : 1 on 12/19/2020 by No Thomas MD at [facility] Right: Tibia Synthes I 212.118 / / Synthes 212.117 3.5mm 2.9mm 40mm Self Tap Lock Stardrive Conical Head T15 Full - [id number] Implanted:Qty : 2 on 12/19/2020 by No Thomas MD at [facility] Right: Tibia Synthes I 212.117 / / Synthes 204.830 3.5mm 6mm 30mm 2.5mm Self Tap Small Hexagonal Socket Low Profile - [id number] Implanted:Qty : 3 on 12/19/2020 by No Thomas MD at [facility] Right: Tibia Synthes I 204.830 / / Synthes 204.838 3.5mm 6mm 38mm 2.5mm Self Tap Small Hexagonal Socket Low Profile - [id number] Implanted:Qty : 1 on 12/19/2020 by No Thomas MD at [facility] Right: Tibia Synthes I 204.838 / / Synthes 204.832 3.5mm 6mm 32mm 2.5mm Self Tap Small Hexagonal Socket Low Profile - [id number] Implanted:Qty : 2 on 12/19/2020 by No Thomas MD at [facility] Right: Tibia Synthes I 204.832 / / Synthes 204.840 3.5mm 6mm 40mm 2.5mm Self Tap Small Hexagonal Socket Low Profile - [id number] Implanted:Qty : 1 on 12/19/2020 by No Thomas MD at [facility] Right: Tibia Synthes I 204.840 / / Synthes 212.119 3.5mm 2.9mm 45mm Self Tap Lock Stardrive Conical Head T15 Full - [id number] Implanted:Qty : 1 on 12/19/2020 by No Thomas MD at [facility] Right: Tibia Synthes I 212.119 / / Synthes 241.450 Lcp Combi 210mm 15 Hole Low Profile Limit Contact Taper Tip - [id number] Implanted:Qty : 1 on 12/19/2020 by No Thomas MD at [facility] Right: Tibia Synthes I 241.450 / / Abyrx Os-Mon-1001 Wax Bone Montage Sterile - [id number] Implanted:Qty : 1 on 12/21/2020 by No Thomas MD at [facility] Right: Ankle Abyrx [id number] 10/29/2022 OS-MON-1 00 1 / / [id number] Abyrx Os-Mon-1001 Wax Bone Montage Sterile - [id number] Implanted:Qty : 1 on 12/21/2020 by No Thomas MD at [facility] Right: Ankle Abyrx [id number] 10/29/2022 OS-MON-1 00 88901 Synthes 02.211.412 Lcp 56mm Variable Angle Lock Low Profile Precontour Calcaneal - [id number] Implanted:Qty : 1 on 12/21/2020 by No Thomas MD at [facility] Right: Ankle Synthes I 02.211.412 / / Synthes 202.963 2.7mm 5mm 44mm 2.5mm Self Tap Stardrive Cortical T8 Screw Bone - [id number] Implanted:Qty : 1 on 12/21/2020 by No Thomas MD at [facility] Right: Ankle Synthes I 202.963 / / Synthes 02.211.050 2.7mm 50mm Self Tap Lock Variable Angle Stardrive T8 Screw Bone - [id number] Implanted:Qty : 2 on 12/21/2020 by No Thomas MD at [facility] Right: Ankle Synthes I 02.211.050 / / Synthes 02.211.044 2.7mm 44mm Self Tap Lock Variable Angle Stardrive T8 Screw Bone - [id number] Implanted:Qty : 1 on 12/21/2020 by No Thomas MD at [facility] Right: Ankle Synthes I 02.211.044 / / Synthes 02.211.038 2.7mm 38mm Self Tap Lock Variable Angle Stardrive T8 Screw Bone - [id number] Implanted:Qty : 1 on 12/21/2020 by No Thomas MD at [facility] Right: Ankle Synthes I 02..038 / / Synthes 02.040 2.7mm 40mm Self Tap Lock Variable Angle Stardrive T8 Screw Bone - [id number] Implanted:Qty : 1 on 12/21/2020 by No Thomas MD at [facility] Right: Ankle Synthes I 02..040 / / Synthes ..026 2.7mm 26mm Self Tap Lock Variable Angle Stardrive T8 Screw Bone - [id number] Implanted:Qty : 1 on 12/21/2020 by No Thomas MD at [facility] Right: Ankle Synthes I ..026 / / Synthes .211.042 2.7mm 42mm Self Tap Lock Variable Angle Stardrive T8 Screw Bone - [id number] Implanted:Qty : 1 on 12/21/2020 by No Thomas MD at [facility] Right: Ankle Synthes I 02.211.042 / / Synthes 204.870 3.5mm 6mm 70mm 2.5mm Self Tap Small Hexagonal Socket Low Profile - [id number] Implanted:Qty : 1 on 12/21/2020 by No Thomas MD at [facility] Right: Ankle Synthes I 204.870 / / Synthes 204.875 3.5mm 6mm 75mm 2.5mm Self Tap Small Hexagonal Socket Low Profile - [id number] Implanted:Qty : 1 on 12/21/2020 by No Thomas MD at [facility] Right: Ankle Synthes I 204.875 / / Synthes 204.855 3.5mm 6mm 55mm 2.5mm Self Tap Small Hexagonal Socket Low Profile - [id number] Implanted:Qty : 2 on 12/21/2020 by No Thomas MD at [facility] Right: Ankle Synthes I 204.855 / / Explanted Type Area Table Top Tile Setter Device Identifier Shelf Expiration Date Model / Serial / Lot [employer] [id number] Jeremy .062in 9in Trocar Point One End Orthopedic Wire - [id number] Explanted:Qty: 1 on 12/12/2020 by No Thomas MD at [facility] Left: Calcaneus [employer] [id number] / / [employer] [id number] Jeremy .062in 9in 1 Trocar Smooth Wire Fixation - [id number] Explanted:Qty: 3 on 12/19/2020 by No Thomas MD at [facility] Right: Tibia [employer] [id number] / / Synthes 204.842 3.5mm 6mm 42mm 2.5mm Self Tap Small Hexagonal Socket Low Profile - [id number] Explanted:Qty: 1 on 12/19/2020 by No Thomas MD at [facility] Right: Tibia Synthes I 204.842 / / K Wire Explanted:Qty: 2 on 12/21/2020 by No Thomas MD at [facility] Right: Ankle Synthes I 292.820 / / Insurance CHOICE PLUS [id number] CHOICE PLUS [place] [id number] [facility] CHOICE PLUS [place] [id number] [facility] Advance Directives For more information, please contact: [phone] * Full Code (Latest Code Status on File) Date Activated Date Inactivated Comments 12/10/2020 4:33 AM 12/25/2020 8:02 PM * Full Code Date Activated Date Inactivated Comments 08/07/2020 11:03 AM 08/08/2020 3:36 PM Care Teams Mud Analysis Well Logging Captain Relationship Specialty Start Date End Date No, Physician PCP - General 02/28/21 No, Physician 12/09/20
--- OUTSIDE RECORDS SUMMARY | 2024-10-08 17:37 | XMS_ITS | Clinical Summary ---
Author Organization [facility] Address [address] [place] [address] Care Team Providers Care Base Filler Name Role Phone None, Provider Primary Care Provider Unavaila ble Allergies No [...] 98 03/28/2020 11:03 PM CDT Temperature 37.1 C (98.8 F) 03/28/2020 11:03 PM CDT Respiratory Rate 20 03/28/2020 11:03 PM CDT [...] patient's age to complete this topic Insurance [facility] Care Teams Base Filler Relationship Specialty Start Date End Date None, Provider, PCP - General 03/28/20
[2024-10-08 17:38] VITALS: BP 130/79; PULSE 114; RESP 18; TEMP 36.6; O2SAT 95
--- OUTSIDE RECORDS SUMMARY | 2024-10-08 17:38 | XMS_ITS | Encounter Summary ---
Author Organization [facility] Healthcare Address [address] [place] [address] Care Team Providers Care Parts Cleaner Name Role Phone Unknown, Notinfile Primary Care Provider Unavail able No, Physician Unavailable No, Physician Primary Care Provider [phone] Encounter Details Date Type Department Care Team (Latest Contact Info) Description 12/25/2020 Ophth Exam Ophthalmology Maribeth Redd MD PhD [address] [place] [address] Social History Tobacco Use Types Packs/Day Years Used Date Smoking Tobacco: Never Smokeless Tobacco: Never Alcohol Use Standard Drinks/Week Comments Yes 0 (1 standard drink = 0.6 oz pur e alcohol) Sex and Gender Information Value Date Recorded Sex Assigned at Not on file 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
--- OUTSIDE RECORDS SUMMARY | 2024-10-08 17:38 | XMS_ITS | Encounter Summary ---
Author Organization [facility] Healthcare Address [address] [place] [address] Care Team Providers Care Corporate Safety Coordinator Name Role Phone Unknown, Notinfile Primary Care Provider Unavail able Unknown, Notinfile Primary Care Provider Unavail able No, Physician Unavailable No, Physician Primary Care Provider [phone] Encounter Details Date Type Department Care Team (Latest Contact Info) Description 12/14/2020 Ophth Exam Ophthalmology Ofelia Garcia MD [address] [facility] [address] [place] [address] Social History Tobacco Use Types Packs/Day Years Used Date Smoking Tobacco: Every Day Smokeless Tobacco: Never Alcohol Use Standard Drinks/Week Comments Yes 0 (1 standard drink = 0.6 oz pur e alcohol) Sex and Gender Information Value Date Recorded Sex Assigned at Not on file 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
--- OUTSIDE RECORDS SUMMARY | 2024-10-08 17:38 | XMS_ITS | Encounter Summary ---
Author Organization [facility] Address [address] [place] [address] Phone Care Team Providers Care King Maker Name Role Phone Unknown, Notinfile Primary Care Provider Unavail able Unknown, Notinfile Primary Care Provider Unavail able No, Physician Unavailable No, Physician Primary Care Provider [phone] Encounter Details Date Type Department Care Team (Late st Contact Info) Description 12/09/2020 Ophth Exam [facility] Ophthalmology [address] [place] [address] 1[address] [place] [id number] Bri Tello MD [address] [place], [place] [id number] Social History Tobacco Use Types Packs/Day Years Used Date Smoking Tobacco: Never Assessed Alcohol Use Standard Drinks/Week Comments Yes 0 (1 standard drink = 0.6 oz pur e alcohol) Sex and Gender Information Value Date Recorded Sex Assigned at Not on file Legal Sex Male 11:16 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
--- OUTSIDE RECORDS SUMMARY | 2024-10-08 17:38 | XMS_ITS | Referral Summary ---
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 Persistent cognitive, visual, and balance impairments. Persistent headache, but relatively mild. Has emotional dysregulation but would prefer to avoid pharmacologic treatment at this time. 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 Cancer Staging:Pathologic stage from 08/07/2020:Stage [...] (07/13/2020): Added automatically from request for surgery [id number] Mass of right side of neck 06/27/2020 [...] on file Legal Sex Male 11:16 AM SAND MILLER Gender Identity Not on file Sexual Orientation [...] on file Medical Devices Implanted Type Area Interface Designer Device Identifier Shelf Expiration Date Model / Serial / Lot Synthes 294.55 Schanz 5mm 170mm 50mm Blunt Trocar Point Xlong Screw External - [id number] Implanted:Qty : 2 on 12/10/2020 by Sachin Odonnell MD at [facility] Calcaneus Synthes I 294.55 / / Suarez And Nephew/Richco /Ortho [id number] Evos 3.5mm 80mm Self Tap Cortex Screw Bone Sterile - [id number] Implanted:Qty : 1 on 12/12/2020 by No Thomas MD at [facility] Left: Calcaneus Suarez [employer] Nephew/Rich[employer]/O rtho [id number] / / [employer]Rich[employer] /Ortho [id number] Evos 3.5mm 70mm Self Tap Cortex Screw Bone Sterile - [id number] Implanted:Qty : 2 on 12/12/2020 by No Thomas MD at [facility] Left: Calcaneus Su[employer]hew/Richco/O rtho [id number] / / [employer]Rich[employer] /Ortho [id number] Evos 3.5mm 50mm Self Tap Cortex Screw Bone Sterile - [id number] Implanted:Qty : 1 on 12/12/2020 by No Thomas MD at [facility] Left: Calcaneus Su[employer]hew/Richco/O rtho [id number] / / [employer]/Richco /Ortho [id number] Evos 3.5mm 55mm Self Tap Cortex Screw Bone Sterile - [id number] Implanted:Qty : 1 on 12/12/2020 by No Thomas MD at [facility] Left: Calcaneus Su[employer]hew/Richco/O rtho [id number] / / [employer]Richco /Ortho [id number] Evos 3.5mm 40mm Self Tap Cortex Screw Bone Sterile - [id number] Implanted:Qty : 1 on 12/12/2020 by No Thomas MD at [facility] Left: Calcaneus Su[employer]hew[employer]Rich[employer]/O rtho [id number] / / Synthes 212.134 3.5mm 2.9mm 44mm Self Tap Lock Stardrive Conical Head T15 Full - [id number] Implanted:Qty : 1 on 12/19/2020 by No Thomas MD at [facility] Right: Tibia Synthes I 212.134 / / Synthes 212.118 3.5mm 2.9mm 42mm Self Tap Lock Stardrive Conical Head Full Thread - [id number] Implanted:Qty : 1 on 12/19/2020 by No Thomas MD at [facility] Right: Tibia Synthes I 212.118 / / Synthes 212.117 3.5mm 2.9mm 40mm Self Tap Lock Stardrive Conical Head T15 Full - [id number] Implanted:Qty : 2 on 12/19/2020 by No Thomas MD at [facility] Right: Tibia Synthes I 212.117 / / Synthes 204.830 3.5mm 6mm 30mm 2.5mm Self Tap Small Hexagonal Socket Low Profile - [id number] Implanted:Qty : 3 on 12/19/2020 by No Thomas MD at [facility] Right: Tibia Synthes I 204.830 / / Synthes 204.838 3.5mm 6mm 38mm 2.5mm Self Tap Small Hexagonal Socket Low Profile - [id number] Implanted:Qty : 1 on 12/19/2020 by No Thomas MD at [facility] Right: Tibia Synthes I 204.838 / / Synthes 204.832 3.5mm 6mm 32mm 2.5mm Self Tap Small Hexagonal Socket Low Profile - [id number] Implanted:Qty : 2 on 12/19/2020 by No Thomas MD at [facility] Right: Tibia Synthes I 204.832 / / Synthes 204.840 3.5mm 6mm 40mm 2.5mm Self Tap Small Hexagonal Socket Low Profile - [id number] Implanted:Qty : 1 on 12/19/2020 by No Thomas MD at [facility] Right: Tibia Synthes I 204.840 / / Synthes 212.119 3.5mm 2.9mm 45mm Self Tap Lock Stardrive Conical Head T15 Full - [id number] Implanted:Qty : 1 on 12/19/2020 by No Thomas MD at [facility] Right: Tibia Synthes I 212.119 / / Synthes 241.450 Lcp Combi 210mm 15 Hole Low Profile Limit Contact Taper Tip - [id number] Implanted:Qty : 1 on 12/19/2020 by No Thomas MD at [facility] Right: Tibia Synthes I 241.450 / / Abyrx Os-Mon-1001 Wax Bone Montage Sterile - [id number] Implanted:Qty : 1 on 12/21/2020 by No Thomas MD at [facility] Right: Ankle Abyrx [id number] 10/29/2022 OS-MON-1 00 / / [id number] Abyrx Os-Mon-1001 Wax Bone Montage Sterile - [id number] Implanted:Qty : 1 on 12/21/2020 by No Thomas MD at [facility] Right: Ankle Abyrx [id number] 10/29/2022 OS-MON-1 00 72949 Synthes 02.211.412 Lcp 56mm Variable Angle Lock Low Profile Precontour Calcaneal - [id number] Implanted:Qty : 1 on 12/21/2020 by No Thomas MD at [facility] Right: Ankle Synthes I 02.211.412 / / Synthes 202.963 2.7mm 5mm 44mm 2.5mm Self Tap Stardrive Cortical T8 Screw Bone - [id number] Implanted:Qty : 1 on 12/21/2020 by No Thomas MD at [facility] Right: Ankle Synthes I 202.963 / / Synthes 02.211.050 2.7mm 50mm Self Tap Lock Variable Angle Stardrive T8 Screw Bone - [id number] Implanted:Qty : 2 on 12/21/2020 by No Thomas MD at [facility] Right: Ankle Synthes I 02.211.050 / / Synthes 02.211.044 2.7mm 44mm Self Tap Lock Variable Angle Stardrive T8 Screw Bone - [id number] Implanted:Qty : 1 on 12/21/2020 by No Thomas MD at [facility] Right: Ankle Synthes I 02.211.044 / / Synthes 02.211.038 2.7mm 38mm Self Tap Lock Variable Angle Stardrive T8 Screw Bone - [id number] Implanted:Qty : 1 on 12/21/2020 by No Thomas MD at [facility] Right: Ankle Synthes I 02.211.038 / / Synthes 02.211.040 2.7mm 40mm Self Tap Lock Variable Angle Stardrive T8 Screw Bone - [id number] Implanted:Qty : 1 on 12/21/2020 by No Thomas MD at [facility] Right: Ankle Synthes I 02.211.040 / / Synthes 02.211.026 2.7mm 26mm Self Tap Lock Variable Angle Stardrive T8 Screw Bone - [id number] Implanted:Qty : 1 on 12/21/2020 by No Thomas MD at [facility] Right: Ankle Synthes I 02.211.026 / / Synthes 02211.042 2.7mm 42mm Self Tap Lock Variable Angle Stardrive T8 Screw Bone - [id number] Implanted:Qty : 1 on 12/21/2020 by No Thomas MD at [facility] Right: Ankle Synthes I 02.211.042 / / Synthes 204.870 3.5mm 6mm 70mm 2.5mm Self Tap Small Hexagonal Socket Low Profile - [id number] Implanted:Qty : 1 on 12/21/2020 by No Thomas MD at [facility] Right: Ankle Synthes I 204.870 / / Synthes 204.875 3.5mm 6mm 75mm 2.5mm Self Tap Small Hexagonal Socket Low Profile - [id number] Implanted:Qty : 1 on 12/21/2020 by No Thomas MD at [facility] Right: Ankle Synthes I 204.875 / / Synthes 204.855 3.5mm 6mm 55mm 2.5mm Self Tap Small Hexagonal Socket Low Profile - [id number] Implanted:Qty : 2 on 12/21/2020 by No Thomas MD at [facility] Right: Ankle Synthes I 204.855 / / Explanted Type Area Interface Designer Device Identifier Shelf Expiration Date Model / Serial / Lot [employer] [id number] Jeremy .062in 9in Trocar Point One End Orthopedic Wire - [id number] Explanted:Qty: 1 on 12/12/2020 by No Thomas MD at [facility] Left: Calcaneus [employer] [id number] / / [employer] [id number] Jeremy .062in 9in 1 Trocar Smooth Wire Fixation - [id number] Explanted:Qty: 3 on 12/19/2020 by No Thomas MD at [facility] Right: Tibia [employer] [id number] / / Synthes 204.842 3.5mm 6mm 42mm 2.5mm Self Tap Small Hexagonal Socket Low Profile - [id number] Explanted:Qty: 1 on 12/19/2020 by No Thomas MD at [facility] Right: Tibia Synthes I 204.842 / / K Wire Explanted:Qty: 2 on 12/21/2020 by No Thomas MD at [facility] Right: Ankle Synthes I 292.820 / / Insurance [facility] CHO[facility] PLUS [facility] CHO[facility] PLUS [id number] CHOICE PLUS [id number] [place] [address] [facility] Advance Directives For more information, please contact: [phone] * Full Code (Latest Code Status on File) Date Activated Date Inactivated Comments 12/10/2020 4:33 AM 12/25/2020 8:02 PM * Full Code Date Activated Date Inactivated Comments 08/07/2020 11:03 AM 08/08/2020 3:36 PM Care Teams Cardiology Consultants Relationship Specialty Start Date End Date No, Physician PCP - General 02/28/21 No, Physician 12/09/20
--- OUTSIDE RECORDS SUMMARY | 2024-10-08 17:38 | XMS_ITS | Encounter Summary ---
Author Organization [facility] Address [address] [facility] [address] [place] [address] Phone Care Team Providers Care Mud Car Worker Name Role Phone Unknown, Notinfile Primary Care Provider Unavail able Unknown, Notinfile Primary Care Provider Unavail able No, Physician Unavailable No, Physician Primary Care Provider [phone] Encounter Details Date Type Department Care Team (Late st Contact Info) Description 12/11/2020 Ophth Exam [facility] Ophthalmology [address] [place] [address] 1st [place] [id number] Kirill Sanchez MD [address] [place], [place] [id number] Social History Tobacco Use Types Packs/Day Years Used Date Smoking Tobacco: Every Day Smokeless Tobacco: Never Alcohol Use Standard Drinks/Week Comments Yes 0 (1 standard drink = 0.6 oz pur e alcohol) Sex and Gender Information Value Date Recorded Sex Assigned at Not on file Legal Sex Male 11:[address] Gender Identity Not on file Sexual Orientation [...] more inferiorly, grossly attached 360 Care Teams Mud Car Worker Relationship Specialty Start Date End Date Unknown, Notinfile PCP - General 12/09/20 12/24/20 Unknown, Notinfile PCP - General 12/25/20 02/27/21 No, Physician PCP - General 02/28/21 No, Physician 12/09/20 documented as of this encounter
--- OUTSIDE RECORDS SUMMARY | 2024-10-08 17:38 | XMS_ITS | Encounter Summary ---
Author Organization [facility] Healthcare Address [address] [place] [address] Care Team Providers Care Set Up Inspector Name Role Phone Unknown, Notinfile Primary Care Provider Unavail able Unknown, Notinfile Primary Care Provider Unavail able No, Physician Unavailable No, Physician Primary Care Provider [phone] Encounter Details Date Type Department Care Team (Latest Contact Info) Description 12/18/2020 Ophth Exam Ophthalmology Ofelia Garcia MD [address] [facility] [address] [place] [address] Social History Tobacco Use Types Packs/Day Years Used Date Smoking Tobacco: Every Day Smokeless Tobacco: Never Alcohol Use Standard Drinks/Week Comments Yes 0 (1 standard drink = 0.6 oz pur e alcohol) Sex and Gender Information Value Date Recorded Sex Assigned at Not on file Legal Sex Male 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
--- OUTSIDE RECORDS SUMMARY | 2024-10-08 17:38 | XMS_ITS ---
[facility] Organization [facility] Address [address] [place] [address] Care Team Providers Care Blueprint Assembler Name Role Phone No, Physician Unavailable No, Physician Primary Care Provider [phone] Active Problems Problem Noted Date Diagnosed Date Insomnia 11/15/2022 Chronic post-traumatic headache, not intractable 11/15/2022 Traumatic brain injury with loss of consciousnes s ([facility]) 08/05/2021 Assessment & Plan (08/05/2021 10:00 AM SAWMILL SUPERVISOR): Suspect at least moderate severity, although unclear. Persistent cognitive, visual, and balance impairments. Persistent headache, but relatively mild. Has emotional dysregulation but would prefer to avoid pharmacologic treatment at this time. Offered but will defer MRI at this time given clinical stability/improvement Referral to PT at [facility] for post-TBI subsymptom threshold aerobic [...] healing 02/22/2021 Vitreous hemorrhage of left eye ([facility]) 2020 Left retinal detachment 01/10/2021 Assessment & [...] (12/09/2020): Added automatically from request for surgery [id number] Open displaced fracture of body of right calcane us 12/09/2020 Overview (12/09/2020): Added automatically from request for surgery [id number] Laceration of left forearm 12/09/2020 Overview (12/09/2020): Added automatically from request for surgery [id number] 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 Past Plans No past plan information found. Radiation Treatments * No radiation treatments are documented for this patient in [facility]. Treatments may have been administered in another system. Lifetime Dose Tracking * Chemical Lifetime Dose Automatic Entry Manual Entr y Fluoro Time 8.628 minutes 8.628 minutes 0 minutes Air kerma at the reference point (Ka,r) 15.39 mGy 1 5.39 mGy 0 mGy DLP 5,382 mGycm 5,382 mGycm 0 mGycm
--- NOTE | 2024-10-08 17:41 | ECG_ITS ---
Test Date: 2024-10-08 19:50:32 Measurements Intervals [place] Rate: 98 P: 22 NE: 143 QRS: 0 QRSD: 86 T: 13 QT: 309 QTc: 396 Interpretive Statements SINUS RHYTHM VOLTAGE CRITERIA FOR LVH BORDERLINE ST-T WAVE ABNORMALITY- ANTEROLAT/INF LEADS BASELINE ARTIFACT- I, II, III, AVR, AVL, AVF, V1-V6 BORDERLINE ECG Compared to ECG 10/02/2024 03:39:47 HEART RATE HAS DECREASED Electronically Signed On 10-09-2024 06:43:06 DEMURRAGE WORKER by Vignesh Yancey D.O.
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
--- NOTE | 2024-10-08 19:07 | PC.NURSE ---
called x3 for MSE no answer
--- OUTSIDE RECORDS SUMMARY | 2024-10-08 19:17 | XMS_ITS | Referral Summary ---
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 Persistent cognitive, visual, and balance impairments. Persistent headache, but relatively mild. Has emotional dysregulation but would prefer to avoid pharmacologic treatment at this time. 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 from [...] (07/13/2020): Added automatically from request for surgery [id number] Mass of right side of neck 06/27/2020 [...] on file Legal Sex Male 11:16 AM JOINERY SETTER OUT Gender Identity Not on file Sexual Orientation [...] on file Medical Devices Implanted Type Area City Tax Auditor Device Identifier Shelf Expiration Date Model / Serial / Lot Synthes 294.55 Schanz 5mm 170mm 50mm Blunt Trocar Point Xlong Screw External - [id number] Implanted:Qty : 2 on 12/10/2020 by Sachin Odonnell MD at [facility] Calcaneus Synthes I 294.55 / / [employer]Ortho [id number] Evos 3.5mm 80mm Self Tap Cortex Screw Bone Sterile - [id number] Implanted:Qty : 1 on 12/12/2020 by No Thomas MD at [facility] Left: Calcaneus [employer] rtho [id number] / / [employer] /Ortho [id number] Evos 3.5mm 70mm Self Tap Cortex Screw Bone Sterile - [id number] Implanted:Qty : 2 on 12/12/2020 by No Thomas MD at [facility] Left: Calcaneus [employer]/O rtho [id number] / / [employer] /Ortho [id number] Evos 3.5mm 50mm Self Tap Cortex Screw Bone Sterile - [id number] Implanted:Qty : 1 on 12/12/2020 by No Thomas MD at [facility] Left: Calcaneus [employer]/O rtho [id number] / / [employer] /Ortho [id number] Evos 3.5mm 55mm Self Tap Cortex Screw Bone Sterile - [id number] Implanted:Qty : 1 on 12/12/2020 by No Thomas MD at [facility] Left: Calcaneus [employer]O r[employer]o [id number] / / [employer] /Ortho [id number] Evos 3.5mm 40mm Self Tap Cortex Screw Bone Sterile - [id number] Implanted:Qty : 1 on 12/12/2020 by No Thomas MD at [facility] Left: Calcaneus [employer]o [id number] / / Synthes 212.134 3.5mm 2.9mm 44mm Self Tap Lock Stardrive Conical Head T15 Full - [id number] Implanted:Qty : 1 on 12/19/2020 by No Thomas MD at [facility] Right: Tibia Synthes I 212.134 / / Synthes 212.118 3.5mm 2.9mm 42mm Self Tap Lock Stardrive Conical Head Full Thread - [id number] Implanted:Qty : 1 on 12/19/2020 by No Thomas MD at [facility] Right: Tibia Synthes I 212.118 / / Synthes 212.117 3.5mm 2.9mm 40mm Self Tap Lock Stardrive Conical Head T15 Full - [id number] Implanted:Qty : 2 on 12/19/2020 by No Thomas MD at [facility] Right: Tibia Synthes I 212.117 / / Synthes 204.830 3.5mm 6mm 30mm 2.5mm Self Tap Small Hexagonal Socket Low Profile - [id number] Implanted:Qty : 3 on 12/19/2020 by No Thomas MD at [facility] Right: Tibia Synthes I 204.830 / / Synthes 204.838 3.5mm 6mm 38mm 2.5mm Self Tap Small Hexagonal Socket Low Profile - [id number] Implanted:Qty : 1 on 12/19/2020 by No Thomas MD at [facility] Right: Tibia Synthes I 204.838 / / Synthes 204.832 3.5mm 6mm 32mm 2.5mm Self Tap Small Hexagonal Socket Low Profile - [id number] Implanted:Qty : 2 on 12/19/2020 by No Thomas MD at [facility] Right: Tibia Synthes I 204.832 / / Synthes 204.840 3.5mm 6mm 40mm 2.5mm Self Tap Small Hexagonal Socket Low Profile - [id number] Implanted:Qty : 1 on 12/19/2020 by No Thomas MD at [facility] Right: Tibia Synthes I 204.840 / / Synthes 212.119 3.5mm 2.9mm 45mm Self Tap Lock Stardrive Conical Head T15 Full - [id number] Implanted:Qty : 1 on 12/19/2020 by No Thomas MD at [facility] Right: Tibia Synthes I 212.119 / / Synthes 241.450 Lcp Combi 210mm 15 Hole Low Profile Limit Contact Taper Tip - [id number] Implanted:Qty : 1 on 12/19/2020 by No Thomas MD at [facility] Right: Tibia Synthes I 241.450 / / Abyrx Os-Mon-1001 Wax Bone Montage Sterile - [id number] Implanted:Qty : 1 on 12/21/2020 by No Thomas MD at [facility] Right: Ankle Abyrx [id number] 10/29/2022 OS-MON-1 00 / / [id number] Abyrx Os-Mon-1001 Wax Bone Montage Sterile - [id number] Implanted:Qty : 1 on 12/21/2020 by No Thomas MD at [facility] Right: Ankle Abyrx [id number] 10/29/2022 OS-MON-1 00 64697 Synthes 02.211.412 Lcp 56mm Variable Angle Lock Low Profile Precontour Calcaneal - [id number] Implanted:Qty : 1 on 12/21/2020 by No Thomas MD at [facility] Right: Ankle Synthes I 02.211.412 / / Synthes 202.963 2.7mm 5mm 44mm 2.5mm Self Tap Stardrive Cortical T8 Screw Bone - [id number] Implanted:Qty : 1 on 12/21/2020 by No Thomas MD at [facility] Right: Ankle Synthes I 202.963 / / Synthes 02.211.050 2.7mm 50mm Self Tap Lock Variable Angle Stardrive T8 Screw Bone - [id number] Implanted:Qty : 2 on 12/21/2020 by No Thomas MD at [facility] Right: Ankle Synthes I 02.211.050 / / Synthes 02.211.044 2.7mm 44mm Self Tap Lock Variable Angle Stardrive T8 Screw Bone - [id number] Implanted:Qty : 1 on 12/21/2020 by No Thomas MD at [facility] Right: Ankle Synthes I 02.211.044 / / Synthes 02.211.038 2.7mm 38mm Self Tap Lock Variable Angle Stardrive T8 Screw Bone - [id number] Implanted:Qty : 1 on 12/21/2020 by No Thomas MD at [facility] Right: Ankle Synthes I 02.211.038 / / Synthes 02.211.040 2.7mm 40mm Self Tap Lock Variable Angle Stardrive T8 Screw Bone - [id number] Implanted:Qty : 1 on 12/21/2020 by No Thomas MD at [facility] Right: Ankle Synthes I 02.211.040 / / Synthes 02.211.026 2.7mm 26mm Self Tap Lock Variable Angle Stardrive T8 Screw Bone - [id number] Implanted:Qty : 1 on 12/21/2020 by No Thomas MD at [facility] Right: Ankle Synthes I 02.211.026 / / Synthes 02211.042 2.7mm 42mm Self Tap Lock Variable Angle Stardrive T8 Screw Bone - [id number] Implanted:Qty : 1 on 12/21/2020 by No Thomas MD at [facility] Right: Ankle Synthes I 02.211.042 / / Synthes 204.870 3.5mm 6mm 70mm 2.5mm Self Tap Small Hexagonal Socket Low Profile - [id number] Implanted:Qty : 1 on 12/21/2020 by No Thomas MD at [facility] Right: Ankle Synthes I 204.870 / / Synthes 204.875 3.5mm 6mm 75mm 2.5mm Self Tap Small Hexagonal Socket Low Profile - [id number] Implanted:Qty : 1 on 12/21/2020 by No Thomas MD at [facility] Right: Ankle Synthes I 204.875 / / Synthes 204.855 3.5mm 6mm 55mm 2.5mm Self Tap Small Hexagonal Socket Low Profile - [id number] Implanted:Qty : 2 on 12/21/2020 by No Thomas MD at [facility] Right: Ankle Synthes I 204.855 / / Explanted Type Area City Tax Auditor Device Identifier Shelf Expiration Date Model / Serial / Lot [employer] [id number] Jeremy .062in 9in Trocar Point One End Orthopedic Wire - [id number] Explanted:Qty: 1 on 12/12/2020 by No Thomas MD at [facility] Left: Calcaneus [employer] [id number] / / [employer] [id number] Jeremy .062in 9in 1 Trocar Smooth Wire Fixation - [id number] Explanted:Qty: 3 on 12/19/2020 by No Thomas MD at [facility] Right: Tibia [employer] [id number] / / Synthes 204.842 3.5mm 6mm 42mm 2.5mm Self Tap Small Hexagonal Socket Low Profile - [id number] Explanted:Qty: 1 on 12/19/2020 by No Thomas MD at [facility] Right: Tibia Synthes I 204.842 / / K Wire Explanted:Qty: 2 on 12/21/2020 by No Thomas MD at [facility] Right: Ankle Synthes I 292.820 / / Insurance [facility] CHO[facility] PLUS [facility] CHOICE PLUS 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
--- OUTSIDE RECORDS SUMMARY | 2024-10-08 19:17 | XMS_ITS ---
Author Organization [facility] Address [address] [place] [address] Care Team Providers Care Rail Manager Name Role Phone No, Physician Unavailable No, Physician Primary Care Provider [phone] Active Problems Problem Noted Date Diagnosed Date Insomnia 11/15/2022 Chronic post-traumatic headache, not intractable 11/15/2022 Traumatic brain injury with loss of consciousnes s ([facility]) 08/05/2021 Assessment & Plan (08/05/2021 10:00 AM PUBLIC RELATIONS ASSOCIATE): Suspect at least moderate severity, although unclear. Persistent cognitive, visual, and balance impairments. Persistent headache, but relatively mild. Has emotional dysregulation but would prefer to avoid pharmacologic treatment at this time. Offered but will defer MRI at this time given clinical stability/improvement Referral to PT at [facility] for post-TBI subsymptom threshold aerobic exercise [...] healing 02/22/2021 Vitreous hemorrhage of left eye ([facility]) 2020 Left retinal detachment 01/10/2021 Assessment & [...] (12/09/2020): Added automatically from request for surgery [id number] Open displaced fracture of body of right calcane us 12/09/2020 Overview (12/09/2020): Added automatically from request for surgery [id number] Laceration of left forearm 12/09/2020 Overview (12/09/2020): Added automatically from request for surgery [id number] 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 Past Plans No past plan information found. Radiation Treatments * No radiation treatments are documented for this patient in [facility]. Treatments may have been administered in another system. Lifetime Dose Tracking * Chemical Lifetime Dose Automatic Entry Manual Entr y Fluoro Time 8.628 minutes 8.628 minutes 0 minutes Air kerma at the reference point (Ka,r) 15.39 mGy 1 5.39 mGy 0 mGy DLP 5,382 mGycm 5,382 mGycm 0 mGycm
--- OUTSIDE RECORDS SUMMARY | 2024-10-08 19:17 | XMS_ITS | Encounter Summary ---
Author Organization [facility] Address [address] [place] [address] Phone Care Team Providers Care Turbine Mechanic Name Role Phone Unknown, Notinfile Primary Care Provider Unavail able Unknown, Notinfile Primary Care Provider Unavail able No, Physician Unavailable No, Physician Primary Care Provider [phone] Encounter Details Date Type Department Care Team (Late st Contact Info) Description 12/09/[address] 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
--- OUTSIDE RECORDS SUMMARY | 2024-10-08 19:17 | XMS_ITS | Encounter Summary ---
Author Organization [facility] Address [address] [place] [address] Care Team Providers Care Vice President Planning Name Role Phone Unknown, Notinfile Primary Care Provider Unavail able Unknown, Notinfile Primary Care Provider Unavail able No, Physician Unavailable No, Physician Primary Care Provider [phone] Encounter Details Date Type Department Care Team (Latest Contact Info) Description 12/14/2020 Ophth Exam Ophthalmology Ofelia Garcia MD [address] [facility] [address] [place] [address] Social History Tobacco Use Types Packs/Day Years Used Date Smoking Tobacco: Every Day Smokeless Tobacco: Never Alcohol Use Standard Drinks/Week Comments Yes 0 (1 standard drink = 0.6 oz pur e alcohol) Sex and Gender Information Value Date Recorded Sex Assigned at Not on file Legal Sex Male 11:16 AM J[employer] INTER[employer] Gender Identity Not on file Sexual Orientation [...] vit heme, grossly attached 360 Care Teams Vice President Planning Relationship Specialty Start Date End Date Unknown, Notinfile PCP - General 12/09/20 12/24/20 Unknown, Notinfile PCP - General 12/25/20 02/27/21 No, Physician PCP - General 02/28/21 No, Physician 12/09/20 documented as of this encounter
--- OUTSIDE RECORDS SUMMARY | 2024-10-08 19:17 | XMS_ITS | Clinical Summary ---
[facility] Address [address] [place] [address] Care Team Providers Care Manager Paid Name Role Phone No, Physician Unavailable No, Physician Primary Care Provider Allergies No known active allergies Medications IBUPROFEN [...] with loss of consciousnes s ([facility]) 08/05/2021 Assessment & Plan (08/05/2021 10:00 AM SALES ARCHITECT): Suspect at least moderate severity, although unclear. Persistent cognitive, visual, and balance impairments. Persistent headache, but relatively mild. Has emotional dysregulation but would prefer to avoid pharmacologic treatment at this time. 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 Cancer Staging:Pathologic stage from [...] (07/13/2020): Added automatically from request for surgery [id number] Mass of right side of neck 06/27/2020 [...] file Legal Sex Male 11:16 AM SALES ARCHITECT Gender Identity Not on file Sexual [...] this topic Medical Devices Implanted Type Area Belting And Webbing Inspector Device Identifier Shelf Expiration Date Model / Serial / Lot Synthes 294.55 Schanz 5mm 170mm 50mm Blunt Trocar Point Xlong Screw External - [id number] Implanted:Qty : 2 on 12/10/2020 by Sachin Odonnell MD at [facility] Calcaneus Synthes I 294.55 / / Suarez [employer] Nephew[employer]Richco /Ortho [id number] Evos 3.5mm 80mm Self Tap Cortex Screw Bone Sterile - [id number] Implanted:Qty : 1 on 12/12/2020 by No Thomas MD at [facility] Left: Calcaneus Suarez [employer]hew[employer]Rich[employer]/O rtho [id number] / / [employer]Rich[employer] /Ortho [id number] Evos 3.5mm 70mm Self Tap Cortex Screw Bone Sterile - [id number] Implanted:Qty : 2 on 12/12/2020 by No Thomas MD at [facility] Left: Calcaneus Su[employer]hew/Richco/O rtho [id number] / / [employer] /Ortho [id number] Evos 3.5mm 50mm Self Tap Cortex Screw Bone Sterile - [id number] Implanted:Qty : 1 on 12/12/2020 by No Thomas MD at [facility] Left: Calcaneus Suarez [employer]hew/Richco/O rtho [id number] / / [employer]Rich[employer] /Ortho [id number] Evos 3.5mm 55mm Self Tap Cortex Screw Bone Sterile - [id number] Implanted:Qty : 1 on 12/12/2020 by No Thomas MD at [facility] Left: Calcaneus Suarez [employer]hew/Richco/O rtho [id number] / / [employer]Rich[employer] /Ortho [id number] Evos 3.5mm 40mm Self Tap Cortex Screw Bone Sterile - [id number] Implanted:Qty : 1 on 12/12/2020 by No Thomas MD at [facility] Left: Calcaneus Suarez [employer]hew/Richco/O rtho [id number] / / Synthes 212.134 3.5mm 2.9mm 44mm Self Tap Lock Stardrive Conical Head T15 Full - [id number] Implanted:Qty : 1 on 12/19/2020 by No Thomas MD at [facility] Right: Tibia Synthes I 212.134 / / Synthes 212.118 3.5mm 2.9mm 42mm Self Tap Lock Stardrive Conical Head Full Thread - [id number] Implanted:Qty : 1 on 12/19/2020 by No Thomas MD at [facility] Right: Tibia Synthes I 212.118 / / Synthes 212.117 3.5mm 2.9mm 40mm Self Tap Lock Stardrive Conical Head T15 Full - [id number] Implanted:Qty : 2 on 12/19/2020 by No Thomas MD at [facility] Right: Tibia Synthes I 212.117 / / Synthes 204.830 3.5mm 6mm 30mm 2.5mm Self Tap Small Hexagonal Socket Low Profile - [id number] Implanted:Qty : 3 on 12/19/2020 by No Thomas MD at [facility] Right: Tibia Synthes I 204.830 / / Synthes 204.838 3.5mm 6mm 38mm 2.5mm Self Tap Small Hexagonal Socket Low Profile - [id number] Implanted:Qty : 1 on 12/19/2020 by No Thomas MD at [facility] Right: Tibia Synthes I 204.838 / / Synthes 204.832 3.5mm 6mm 32mm 2.5mm Self Tap Small Hexagonal Socket Low Profile - [id number] Implanted:Qty : 2 on 12/19/2020 by No Tohmas MD at [facility] Right: Tibia Synthes I 204.832 / / Synthes 204.840 3.5mm 6mm 40mm 2.5mm Self Tap Small Hexagonal Socket Low Profile - [id number] Implanted:Qty : 1 on 12/19/2020 by No Thomas MD at [facility] Right: Tibia Synthes I 204.840 / / Synthes 212.119 3.5mm 2.9mm 45mm Self Tap Lock Stardrive Conical Head T15 Full - [id number] Implanted:Qty : 1 on 12/19/2020 by No Thomas MD at [facility] Right: Tibia Synthes I 212.119 / / Synthes 241.450 Lcp Combi 210mm 15 Hole Low Profile Limit Contact Taper Tip - [id number] Implanted:Qty : 1 on 12/19/2020 by No Thomas MD at [facility] Right: Tibia Synthes I 241.450 / / Abyrx Os-Mon-1001 Wax Bone Montage Sterile - [id number] Implanted:Qty : 1 on 12/21/2020 by No Thomas MD at [facility] Right: Ankle Abyrx [id number] 10/29/2022 OS-MON-1 00 1 / / [id number] Abyrx Os-Mon-1001 Wax Bone Montage Sterile - [id number] Implanted:Qty : 1 on 12/21/2020 by No Thomas MD at [facility] Right: Ankle Abyrx [id number] 10/29/2022 OS-MON-1 00 14360 Synthes 02.211.412 Lcp 56mm Variable Angle Lock Low Profile Precontour Calcaneal - [id number] Implanted:Qty : 1 on 12/21/2020 by No Thomas MD at [facility] Right: Ankle Synthes I 02.211.412 / / Synthes 202.963 2.7mm 5mm 44mm 2.5mm Self Tap Stardrive Cortical T8 Screw Bone - [id number] Implanted:Qty : 1 on 12/21/2020 by No Thomas MD at [facility] Right: Ankle Synthes I 202.963 / / Synthes 02.211.050 2.7mm 50mm Self Tap Lock Variable Angle Stardrive T8 Screw Bone - [id number] Implanted:Qty : 2 on 12/21/2020 by No Thomas MD at [facility] Right: Ankle Synthes I 02.211.050 / / Synthes 02.211.044 2.7mm 44mm Self Tap Lock Variable Angle Stardrive T8 Screw Bone - [id number] Implanted:Qty : 1 on 12/21/2020 by No Thomas MD at [facility] Right: Ankle Synthes I 02.211.044 / / Synthes 02.211.038 2.7mm 38mm Self Tap Lock Variable Angle Stardrive T8 Screw Bone - [id number] Implanted:Qty : 1 on 12/21/2020 by No Thomas MD at [facility] Right: Ankle Synthes I 02..038 / / Synthes 02.040 2.7mm 40mm Self Tap Lock Variable Angle Stardrive T8 Screw Bone - [id number] Implanted:Qty : 1 on 12/21/2020 by No Thomas MD at [facility] Right: Ankle Synthes I 02..040 / / Synthes ..026 2.7mm 26mm Self Tap Lock Variable Angle Stardrive T8 Screw Bone - [id number] Implanted:Qty : 1 on 12/21/2020 by No Thomas MD at [facility] Right: Ankle Synthes I ..026 / / Synthes .211.042 2.7mm 42mm Self Tap Lock Variable Angle Stardrive T8 Screw Bone - [id number] Implanted:Qty : 1 on 12/21/2020 by No Thomas MD at [facility] Right: Ankle Synthes I 02.211.042 / / Synthes 204.870 3.5mm 6mm 70mm 2.5mm Self Tap Small Hexagonal Socket Low Profile - [id number] Implanted:Qty : 1 on 12/21/2020 by No Thomas MD at [facility] Right: Ankle Synthes I 204.870 / / Synthes 204.875 3.5mm 6mm 75mm 2.5mm Self Tap Small Hexagonal Socket Low Profile - [id number] Implanted:Qty : 1 on 12/21/2020 by No Thomas MD at [facility] Right: Ankle Synthes I 204.875 / / Synthes 204.855 3.5mm 6mm 55mm 2.5mm Self Tap Small Hexagonal Socket Low Profile - [id number] Implanted:Qty : 2 on 12/21/2020 by No Thomas MD at [facility] Right: Ankle Synthes I 204.855 / / Explanted Type Area Belting And Webbing Inspector Device Identifier Shelf Expiration Date Model / Serial / Lot [employer] [id number] Jeremy .062in 9in Trocar Point One End Orthopedic Wire - [id number] Explanted:Qty: 1 on 12/12/2020 by No Thomas MD at [facility] Left: Calcaneus [employer] [id number] / / [employer] [id number] Jeremy .062in 9in 1 Trocar Smooth Wire Fixation - [id number] Explanted:Qty: 3 on 12/19/2020 by No Thomas MD at [facility] Right: Tibia [employer] [id number] / / Synthes 204.842 3.5mm 6mm 42mm 2.5mm Self Tap Small Hexagonal Socket Low Profile - [id number] Explanted:Qty: 1 on 12/19/2020 by No Thomas MD at [facility] Right: Tibia Synthes I 204.842 / / K Wire Explanted:Qty: 2 on 12/21/2020 by No Thomas MD at [facility] Right: Ankle Synthes I 292.820 / / Insurance CHOICE PLUS [facility] HMO/PPO Address: [address] [address] [place] [address] [id number] CHOICE PLUS [facility] HMO/PPO Address: [address] [address] [place] [id number] [facility] CHOICE PLUS [facility] H[facility]/PPO Address: [address] [address] [place] [id number] [facility] Advance Directives For more information, please contact: [phone] * Full Code (Latest Code Status on File) Date Activated Date Inactivated Comments 12/10/2020 4:33 AM 12/25/2020 8:02 PM * Full Code Date Activated Date Inactivated Comments 08/07/2020 11:03 AM 08/08/2020 3:36 PM Care Teams Manager Paid Relationship Specialty Start Date End Date No, Physician PCP - General 02/28/21 No, Physician 12/09/20
--- OUTSIDE RECORDS SUMMARY | 2024-10-08 19:17 | XMS_ITS | Clinical Summary ---
Author Organization [facility] Address [address] [place] [address] Care Team Providers Care Assisted Living Assistant Name Role Phone None, Provider Primary Care [...] patient's age to complete this topic Insurance [facility] Care Teams Assisted Living Assistant Relationship Specialty Start Date End Date None, Provider, PCP - General 03/28/20
--- OUTSIDE RECORDS SUMMARY | 2024-10-08 19:17 | XMS_ITS | Encounter Summary ---
Author Organization [facility] Address [address] [facility] [address] [place] [address] Phone Care Team Providers Care Material Chaser Name Role Phone Unknown, Notinfile Primary Care Provider Unavail able Unknown, Notinfile Primary Care Provider Unavail able No, Physician Unavailable No, Physician Primary Care Provider [phone] Encounter Details Date Type Department Care Team (Late st Contact Info) Description 12/11/[address] 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
--- OUTSIDE RECORDS SUMMARY | 2024-10-08 19:17 | XMS_ITS | Encounter Summary ---
Author Organization [facility] Address [address] [place] [address] Care Team Providers Care Cloth Doubling Machine Operator Name Role Phone Unknown, Notinfile Primary Care Provider Unavail able No, Physician Unavailable No, Physician Primary Care Provider [phone] Encounter Details Date Type Department Care Team (Latest Contact Info) Description 12/25/2020 Ophth Exam Ophthalmology Maribeth Redd MD PhD [address] [place] [address] Social History Tobacco Use Types Packs/Day Years Used Date Smoking Tobacco: Never Smokeless Tobacco: Never Alcohol Use Standard Drinks/Week Comments Yes 0 (1 standard drink = 0.6 oz pur e alcohol) Sex and Gender Information Value Date Recorded Sex Assigned at Not on file 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
--- OUTSIDE RECORDS SUMMARY | 2024-10-08 19:17 | XMS_ITS | Encounter Summary ---
Author Organization [facility] Healthcare Address [address] [place] [address] Care Team Providers Care Chemist Helper Name Role Phone Unknown, Notinfile Primary Care Provider Unavail able Unknown, Notinfile Primary Care Provider Unavail able No, Physician Unavailable No, Physician Primary Care Provider [phone] Encounter Details Date Type Department Care Team (Latest Contact Info) Description 12/18/2020 Ophth Exam Ophthalmology Ofelia Garcia MD [address] [facility] [address] [place] [address] Social History Tobacco Use Types Packs/Day Years Used Date Smoking Tobacco: Every Day Smokeless Tobacco: Never Alcohol Use Standard Drinks/Week Comments Yes 0 (1 standard drink = 0.6 oz pur e alcohol) Sex and Gender Information Value Date Recorded Sex Assigned at Not on file 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
[2024-10-08 20:00] VITALS: BP 124/78; PULSE 91; RESP 15; O2SAT 95
[2024-10-08 20:01] LABS: Basophils Percent Auto 0.1 % (0.2-1.2); Eosinophils Percent Auto 0.1 % (0-4.4); Hematocrit 47.9 % (42.0-52.0); Hemoglobin 16.1 g/dL (14.0-18.0); Immature Granulocyte Absolute 0.04 K/mm3 (0.00-0.031); Immature Granulocyte Percent A 0.5 % (0-0.5); Lymphocytes Absolute Auto 1.55 K/mm3 (0.9-3.2); Mean Corpuscular HGB Conc 33.6 g/dl (32-36); Mean Corpuscular Hemoglobin 30.7 pg (26-34); Mean Corpuscular Volume 91.4 fl (80-100); Mean Platelet Volume 9.1 fl (7.4-10.4); Monocytes Absolute Auto 0.9 K/mm3 (0.1-0.6); Monocytes Percent Auto 11.6 % (2.6-8.5); Neutrophils Absolute Auto 5.2 K/mm3 (1.3-6.7); Neutrophils Percent Auto 67.7 % (45.5-73.1); Platelet Count Result 307 k/mm3 (150-375); Red Blood Count 5.24 M/mm3 (4.6-6.20); Red Cell Distribution Width 13.4 % (11.5-14.5); White Blood Count 7.8 K/mm3 (4.5-10.0)
[2024-10-08 20:10] LABS: Lactic Acid Reflex 1.2 mmol/L (0.7-2.0)
[2024-10-08 20:12] LABS: Alanine Aminotransferase 101 U/L (6-50); Albumin Level 3.9 g/dL (3.5-5.1); Alkaline Phosphatase 365 U/L (38-126); Anion Gap 8 mmol/L (4-12); Aspartate Amino Transferase 92 U/L (17-59); Bilirubin,Total 1.1 mg/dL (0.2-1.3); Blood Urea Nitrogen 13 mg/dL (9-20); Calcium 9.1 mg/dL (8.4-10.2); Carbon Dioxide 28 mmol/L (22-30); Chloride 101 mmol/L (98-107); Estimated Glomerular Filt Rate > 60; Glucose 114 mg/dL (65-110); Potassium 4.2 mmol/L (3.4-5.0); Sodium 137 mmol/L (137-145)
[2024-10-08] MEDS: SODIUM CHLORIDE 0.9% IV 1,000 ML 999 ML IV CONT (20:26)
[2024-10-08 20:28] LABS: D Dimer 0.83 ug/mL (<0.48)
[2024-10-08 20:37] LABS: Influenza A QL RT-PCR Positive (Negative); Influenza B QL RT-PCR Negative (Negative); RSV RNA, RT-PCR Negative (Negative); SARS-CoV-2 RNA PCR Negative (Negative)
[2024-10-08 20:54] LABS: Add Urine Microscopic? YES; Appearance Urine Cloudy (Clear); Bacteria Urine None Seen /hpf; Bilirubin Urine 1+ (Negative); Blood Urine Negative (Negative); Color Urine Dark Yellow (Yellow); Glucose Urine UA Negative (Negative); Ketones Urine Trace mg/dL (Negative); Leukocyte Esterase Ur Trace LEU/UL (Negative); Nitrate Urine Negative (Negative); Non Pathogenic Casts 0-2; Protein Urine 2+ mg/dL (Negative); RBC Urine 0-2 /hpf (0-2); Specific Grav Ur 1.027 (1.001-1.035); Squamous Epithelial Cell Urine None Seen /hpf (Few); WBC Urine 0-5 /hpf (0-3)
[2024-10-08 21:00] LABS: Lipase 191 U/L (23-300)
[2024-10-08 22:35] VITALS: BP 125/69; PULSE 93; RESP 14; O2SAT 94
== END 2024-10-08 23:15 | disposition home or self-care (01) ==
PROVIDERS: Physician Assistant; Emergency Provider Physician Assistant
DX: J10.00 Influenza due to other identified influenza virus with unspecified type of pneumonia (principal); E86.0 Dehydration; Z20.822 Contact with and (suspected) exposure to COVID-19; K82.8 Other specified diseases of gallbladder; R93.41 Abnormal radiologic findings on diagnostic imaging of renal pelvis, ureter, or bladder
CPT/HCPCS: 36415; 71045; 71275; 74177; 80053; 81001; 83605; 83690; 85025; 85380; 87637; 93005; 96360; 99284; J7030; Q9967